=== PATIENT | female | born 1950 | race Caucasian/White ===

== ENCOUNTER 2016-04-17 10:29 | Emergency (ER) | payer OTHER ==
[2016-04-17 10:34] VITALS: BP 101/67; PULSE 79; TEMP 98.3; BMI 32.2
[2016-04-17] MEDS ORDERED: ALBUTEROL SO4 2.5/IPRATROPIUM 0.5 INH SOL 3 ML VIAL.NEB. NEB ONE (11:15)
--- NOTE | 2016-04-17 11:15 | PDOC ---
History of Present Illness - General Chief Complaint: Injury Stated Complaint: FALL, RT FOOT PAIN Time Seen by Provider: 04/17/16 10:49 History Source: Patient Exam Limitations: No Limitations - History of Present Illness Initial Comments: 04/17/16 11:08 66 yr female states she fell last night. Pt with history of DVT on xarelto, Hep C, heroin use, substance abuse, afib, states she fell in the middle of the night hit her back, head and injured her right foot. Pt c/o pain to the foot with swelling. Pt is unable to bear weight on her foot at this time. Pt has chronic COPD with use of inhalers, pt currently wheezing. Pt has chronic falls, walks with a cane. PMD Dr[facility]Vivian Mcfadden ([facility]) 04/17/16 13:40 Past History - Past Medical History Allergies/Adverse Reactions: Allergies Allergy/AdvReac Type Severity Reaction Status Date / Time No Known Allergies Allergy Verified 04/17/16 10:31 Home Medications: Ambulatory Orders Clonazepam [KlonoPIN -] 1 mg PO BID 10/19/14 Methadone [Dolophine -] 70 mg PO DAILY 10/19/14 Tiotropium [place] [Spiriva] 1 inh PO BID 10/19/14 Quetiapine Fumarate [Seroquel -] 300 mg PO HS 02/05/15 Aspirin Coated [Ecotrin -] 81 mg PO DAILY tablet.ec 09/22/15 Docusate Sodium [Colace -] 100 mg PO TID capsule 09/22/15 Albuterol Sulfate Inhaler - [Ventolin HFA Inhaler -] 2 inh PO Q4H PRN 12/08/15 Nicotine Patch [Nicoderm Patch -] 1 patch TD DAILY PRN 12/08/15 Rivaroxaban [Xarelto -] 20 mg PO DAILY 12/10/15 Furosemide [Lasix -] 40 mg PO DAILY #0 12/11/15 Meclizine HCl 25 mg PO Q8H #20 tablet 12/11/15 Metoprolol Succinate [Toprol XL -] 25 mg PO DAILY #30 tab.sr.24h 12/11/15 Anemia: No Asthma: No Cancer: Yes (lung, adrenal) Cardiac Disorders: Yes (afib) CVA: No COPD: Yes CHF: No Dementia: No Diabetes: No GI Disorders: Yes (hep c) Disorders: No HTN: Yes Hypercholesterolemia: No Kidney Stones: No Liver Disease: Yes (hep C) Psychiatric Problems: Yes (anxiety) Suicide Attempt (Hx): No Seizures: Yes Thyroid Disease: Yes (THYROID NODULES) - Surgical History Abdominal Surgery: No Appendectomy: No Cardiac Surgery: No Cholecystectomy: No Lung Surgery: Yes (LEFT UPPER LOBE LOBECTOMY IN 08/2012) Neurologic Surgery: No Orthopedic Surgery: No - Family Disease History Family Disease History: Other: Mother (non contributory) - Reproductive History PID: No - Immunization History Immunization Up to Date: Yes - Psycho/Social/Smoking Cessation Hx Anxiety: No Suicidal Ideation: No Smoking Status: No Smoking History: Current every day smoker Have you smoked in the past 12 months: Yes Number of Cigarettes Smoked Daily: 20 If you are a former smoker, when did you quit?: 03-17-13 Information on smoking cessation initiated: Yes 'Breaking Loose' booklet given: 04/17/16 Hx Alcohol Use: No Drug/Substance Use Hx: No (on methadone) Substance Use Type: None Hx Substance Use Treatment: Yes (methadone clinic) Review of Systems - Review of Systems Able to Perform ROS?: Yes Is the patient limited Bulgarian proficient: No Constitutional: No: Symptoms Reported HEENTM: No: Symptoms Reported Respiratory: No: Symptoms reported Cardiac (ROS): No: Symptoms Reported ABD/GI: No: Symptoms Reported : No: Symptoms Reported Musculoskeletal: Yes: See HPI *Physical Exam - Vital Signs Last Vital Signs Temp Pulse Resp BP Pulse Ox 98.3 F 79 18 101/67 100 04/17/16 10:31 04/17/16 10:31 04/17/16 10:31 04/17/16 10:31 04/17/16 10:31 - Physical Exam General Appearance: Yes: Nourished, Appropriately Dressed, Other (somnolent appears under the influence of drugs ) HEENT: positive: EOMI, NAHID, TMs Normal, Pharynx Normal Neck: negative: Tender Respiratory/Chest: positive: Wheezing Cardiovascular: positive: Regular Rhythm, Regular Rate Gastrointestinal/Abdominal: positive: Normal Bowel Sounds, Soft Musculoskeletal: positive: Normal Inspection Integumentary: positive: Normal Color, Dry, Warm, Bruising (mid thoracic spine with 2cm area of bruising, redness ) ED Treatment Course - RADIOLOGY Radiology Studies Ordered: Category Date Time Status HEAD CT WITHOUT CONTRAST [CT] Stat CT Scan 04/17/16 10:59 Ordered ANKLE & FOOT-RIGHT* [RAD] Stat Radiology 04/17/16 11:03 Ordered FOOT-RIGHT [RAD] Stat Radiology 04/17/16 11:03 Ordered SPINE-CERVICAL [RAD] Stat Radiology 04/17/16 11:03 Ordered SPINE-THORACIC [RAD] Stat Radiology 04/17/16 11:03 Ordered Medical Decision Making - Medical Decision Making 04/17/16 13:14 cc: fall last night hit head on ascencionto , pt states she hit her forehead with no LOC pt states she injured her mid back and her right foot. Pt admits to getting her methadone this am and took a ride to the ER for eval of her foot. pt denies dizzyness, no headache or chest pain no SOB ice applied to right foot 04/17/16 13:41 pt given results of her xrays and cat scan for discharge and to follow with ther PMD Dr.Vivian Mcfadden at [facility] in . Pt has appointment next saturday with her. I have discussed in detail that pt must return to ER for any worsening symptoms. / *DC/Admit/Observation/Transfer Diagnosis at time of Disposition: Injury, foot Qualifiers: Encounter type: initial encounter Laterality: right Qualified Code(s): S99.921A - Unspecified injury of right foot, initial encounter Contusion Qualifiers: Encounter type: initial encounter Contusion area: thoracic wall - Discharge Dispostion Disposition: HOME Condition at time of disposition: Good - Referrals Referrals: STAFF,NOT ON [Primary Care Provider] - Jose Thurston MD [Staff Physician] - - Patient Instructions Additional Instructions: follow with your doctor as planned or sooner if any worsening symptoms return to ER for any severe headache, vomiting or confusion or any other worsening symptoms follow with the orthopedist for follow up apply ice every 2hrs for 20 minutes to your foot for the next 2 days use the cane to ambulate
[2016-04-17] MEDS ORDERED: ALBUTEROL SO4 0.083% IH SOL 2.5 MG/3 ML VIAL.NEB. NEB ONE (11:40)
== END 2016-04-17 13:54 | disposition home or self-care (01) ==
LOC: JERFT 10:29
PROC: 3E0F7GC Introduction of Other Therapeutic Substance into Respiratory Tract, Via Natural or Artificial Opening (ICD-10-PCS; principal; 2016-04-17)
DX: S20.229A Contusion of unspecified back wall of thorax, initial encounter (principal); W06.XXXA Fall from bed, initial encounter; Y93.89 Activity, other specified; Y92.032 Bedroom in apartment as the place of occurrence of the external cause; I48.91 Unspecified atrial fibrillation; Z86.718 Personal history of other venous thrombosis and embolism; Z79.01 Long term (current) use of anticoagulants; F11.10 Opioid abuse, uncomplicated; B18.2 Chronic viral hepatitis C; J44.9 Chronic obstructive pulmonary disease, unspecified; F17.210 Nicotine dependence, cigarettes, uncomplicated
CPT/HCPCS: 70450-TC; 72050-TC; 72070-TC; 73610-TC-RT; 73630-TC-RT; 94640; 99281-25

== ENCOUNTER 2016-07-08 03:23 | Inpatient (IN) | payer OTHER ==
--- NOTE | 2016-07-08 03:52 | PDOC ---
History of Present Illness - General History Source: Patient Exam Limitations: No Limitations - History of Present Illness Initial Comments: 07/08/16 04:50 The patient is a 66-year-old female BIB EMS with a significant past medical history of COPD, Afib, lung and adrenal cancer, hypotension, rheumatoid arthritis, DVT on Xarelto, Hep C, thyroid nodules, peripheral vascular disease, heroin use, and presents to the emergency department with respiratory distress and rapid afib this morning. As per EMS, the patient came in with high BP and diffuse wheezing. The patient reports that she had difficulty breathing and was feeling lightheaded. She reports that she was very sleepy today and only had soup to eat earlier. The patient denies chest pain and headache. The patient denies fever, chills, nausea, vomit, diarrhea and constipation. The patient denies dysuria, frequency , urgency and hematuria. Allergies: NKDA Past Surgical History: Left upper lobe lobectomy 08/2012 Social History: former smoker (quit one week ago) PCP: Dr. Saima Mcfadden <Rubia Thomas - Last Filed: 07/08/16 04:49> <Payton Beck - Last Filed: 07/09/16 04:40> - General Chief Complaint: Respiratory Distress Stated Complaint: DIFFICULTY BREATHING Time Seen by Provider: 07/08/16 03:32 Past History <Rubia Thomas - Last Filed: 07/08/16 04:49> - Past Medical History Anemia: No Asthma: No Cancer: Yes (lung, adrenal) Cardiac Disorders: Yes (afib) CVA: No COPD: Yes CHF: No Dementia: No Diabetes: No GI Disorders: Yes (hep c) Disorders: No HTN: Yes Hypercholesterolemia: No Kidney Stones: No Liver Disease: Yes (hep C) Psychiatric Problems: Yes (anxiety) Suicide Attempt (Hx): No Seizures: Yes Thyroid Disease: Yes (THYROID NODULES) - Surgical History Abdominal Surgery: No Appendectomy: No Cardiac Surgery: No Cholecystectomy: No Lung Surgery: Yes (LEFT UPPER LOBE LOBECTOMY IN 08/2012) Neurologic Surgery: No Orthopedic Surgery: No - Family Disease History Family Disease History: Other: Mother (non contributory) - Reproductive History PID: No - Immunization History Immunization Up to Date: Yes - Psycho/Social/Smoking Cessation Hx Anxiety: No Suicidal Ideation: No Smoking Status: No Smoking History: Current every day smoker Have you smoked in the past 12 months: Yes Number of Cigarettes Smoked Daily: 20 If you are a former smoker, when did you quit?: 03-17-13 'Breaking Loose' booklet given: 04/17/16 Hx Alcohol Use: No Drug/Substance Use Hx: No (on methadone) Substance Use Type: None Hx Substance Use Treatment: Yes (methadone clinic) <BeckPayton - Last Filed: 07/09/16 04:40> - Past Medical History Allergies/Adverse Reactions: Allergies Allergy/AdvReac Type Severity Reaction Status Date / Time No Known Allergies Allergy Verified 07/08/16 03:36 Home Medications: Ambulatory Orders Clonazepam [KlonoPIN -] 1 mg PO BID 10/19/14 Methadone [Dolophine -] 65 mg PO DAILY 10/19/14 Tiotrop[address] [place] [Spiriva] 1 inh PO BID 10/19/14 Quetiapine Fumarate [Seroquel -] 300 mg PO HS 02/05/15 Aspirin Coated [Ecotrin -] 81 mg PO DAILY tablet.ec 09/22/15 Docusate Sodium [Colace -] 100 mg PO TID capsule 09/22/15 Albuterol Sulfate Inhaler - [Ventolin HFA Inhaler -] 2 inh PO Q4H PRN 12/08/15 Nicotine Patch [Nicoderm Patch -] 1 patch TD DAILY PRN 12/08/15 Rivaroxaban [Xarelto -] 20 mg PO DAILY 12/10/15 Fluticasone/Salmeterol [Advair 250-50 Diskus] 1 puff IN BID 07/08/16 Furosemide [Lasix] 20 mg PO DAILY 07/08/16 Gabapentin [Neurontin] 300 mg PO TID 07/08/16 Levetiracetam [Keppra -] 500 mg PO BID 07/08/16 Metoprolol Succinate [Toprol Xl] 50 mg PO DAILY 07/08/16 Quetiapine Fumarate [Seroquel -] 25 mg PO DAILY PRN 07/08/16 Review of Systems - Review of Systems Able to Perform ROS?: Yes Comments:: 07/08/16 04:50 CONSTITUTIONAL: Absent: fever, chills, diaphoresis, generalized weakness, malaise, loss of appetite HEENT: Absent: rhinorrhea, nasal congestion, throat pain, throat swelling, difficulty swallowing, mouth swelling, ear pain, eye pain, visual changes CARDIOVASCULAR: Present: (+) lightheadedness Absent: chest pain, syncope, palpitations, irregular heart rate, peripheral edema RESPIRATORY: Present: (+) shortness of breath Absent: cough, dyspnea with exertion, orthopnea, stridor, hemoptysis GASTROINTESTINAL: Absent: abdominal pain, abdominal distension, nausea, vomiting, diarrhea, constipation, melena, hematochezia GENITOURINARY: Absent: dysuria, frequency, urgency, hesitancy, hematuria, flank pain, genital pain MUSCULOSKELETAL: Absent: myalgia, arthralgia, joint swelling SKIN: Absent: rash, itching, pallor HEMATOLOGIC/IMMUNOLOGIC: Absent: easy bleeding, easy bruising, lymphadenopathy, frequent infections ENDOCRINE: Absent: unexplained weight gain, unexplained weight loss, heat intolerance, cold intolerance NEUROLOGIC: Absent: headache, focal weakness or paresthesias, dizziness, unsteady gait, seizure, mental status changes, bladder or bowel incontinence PSYCHIATRIC: Absent: anxiety, depression, suicidal or homicidal ideation, hallucinations. <Rubia Thomas - Last Filed: 07/08/16 04:49> *Physical Exam - Vital Signs Last Vital Signs Temp Pulse Resp BP Pulse Ox 98.5 F 143 H 16 115/83 97 07/08/16 03:36 07/08/16 03:36 07/08/16 03:36 07/08/16 03:36 07/08/16 03:36 - Physical Exam Comments: 07/08/16 04:50 GENERAL: Well developed, well nourished. Awake and alert. No acute distress. HEENT: Normocephalic, atraumatic. PERRLA, EOMI. No conjunctival pallor. Sclera are non- icteric. Moist mucous membranes. Oropharynx is clear. NECK: Supple. Full ROM. No JVD. Carotid pulses 2+ and symmetric, without bruits. No thyromegaly. No lymphadenopathy. CARDIOVASCULAR: (+) Tachycardic and irregularly irregular. No murmurs, rubs, or gallops. Distal pulses are 2+ and symmetric. PULMONARY: (+) Coarse breath sounds bilaterally and throughout. No wheezing, rales or rhonchi. ABDOMINAL: (+) Obese. Soft. Non-tender. Non-distended. No rebound or guarding. No organomegaly. Normoactive bowel sounds. MUSCULOSKELETAL Normal range of motion at all joints. No bony deformities or tenderness. No CVA tenderness. EXTREMITIES: (+) No pitting edema in bilateral legs, but right leg has thickened skin suggestive of peripheral vascular disease. No cyanosis. No clubbing. No calf tenderness. SKIN: Warm and dry. Normal capillary refill. No rashes. No jaundice. NEUROLOGICAL: Alert, awake, appropriate. Cranial nerves 2-12 intact. No deficits to light touch and temperature in face, upper extremities and lower extremities. No motor deficits in the in face, upper extremities and lower extremities. Normoreflexic in the upper and lower extremities. Normal speech. Toes are down- going bilaterally. Gait is normal without ataxia. PSYCHIATRIC: Cooperative. Good eye contact. Appropriate mood and affect. <Rubia Thomas - Last Filed: 07/08/16 04:49> ED Treatment Course - LABORATORY CBC & Chemistry Diagram: 07/08/16 03:50 07/08/16 03:50 - ADDITIONAL ORDERS Additional order review: Laboratory Results 07/08/16 07/08/16 03:50 03:50 INR 1.27 H PTT (Actin FS) 39.5 H Sodium 139 Potassium 4.5 Chloride 106 Carbon Dioxide 26 Anion Gap 7 L BUN 15 D Creatinine 1.3 H Creat Clearance w eGFR 41.24 Random Glucose 145 H D Calcium 8.0 L Total Bilirubin 0.3 AST 42 H ALT 44 Alkaline Phosphatase 95 Creatine Kinase 439 H Creatine Kinase Index 2.0 CK-MB (CK-2) 8.573 H Troponin I < 0.02 B-Natriuretic Peptide 6862.07 H Total Protein 8.5 H Albumin 3.4 07/08/16 03:50 RBC 4.47 MCV 94.4 MCHC 32.8 RDW 14.3 MPV 9.6 Neutrophils % 81.3 D Lymphocytes % 11.8 D Monocytes % 6.2 Eosinophils % 0.2 D Basophils % 0.5 - Medications Given in the ED: ED Medications Discontinued Medications Generic Name Dose Route Start Last Admin Trade Name Freq PRN Reason Stop Dose Admin Diltiazem HCl 60 mg 07/08/16 04:17 07/08/16 04:25 Cardizem - PO 07/08/16 04:18 60 mg ONCE ONE Administration Diltiazem HCl 10 mg 07/08/16 04:17 07/08/16 04:25 Cardizem Injection - IVPUSH 07/08/16 04:18 10 mg ONCE ONE Administration <Rubia Thomas - Last Filed: 07/08/16 04:49> - LABORATORY CBC & Chemistry Diagram: 07/08/16 09:50 07/08/16 03:50 <Payton Beck - Last Filed: 07/09/16 04:40> Medical Decision Making - Medical Decision Making 07/09/16 04:29 Pt comes with rapid afib and difficulty breathing. EMS states that pt was in distress when they got to her. HR was controlled with diltiazem in the field. Respirations were improved with duoneb in the field that had the effect of incresing her heart rate. On arrival HR is 140s, and pt is still SOB. She was given more diltiazem in the ER, but we were limited by her low BP of 90s systolic. We hydrated her with saline, but we need to consider her BNP is 6000+ . Asthma treated with solumedrol and pt placed on BiPAP for comfort. Pt admitted to the hospitalist. <Payton Beck - Last Filed: 07/09/16 04:40> *DC/Admit/Observation/Transfer - Attestations Scribe Attestion: 07/08/16 04:51 Documentation prepared by Rubia Thomas, acting as manager medical for Payton Beck MD. <Rubia Thomas - Last Filed: 07/08/16 04:49> - Discharge Dispostion Admit: Yes <Payton Beck - Last Filed: 07/09/16 04:40> Diagnosis at time of Disposition: Rapid atrial fibrillation, Respiration disorder
[2016-07-08 03:57] VITALS: BMI 30.1
[2016-07-08 04:05] LABS: BASOPHIL 0.5 % (0-2.0); EOSINOPHIL 0.2 % (0-4.5); MCHC 32.8 g/dl (32.0-36.0); MEAN CELL VOLUME 94.4 fl (80-96); MEAN PLT VOLUME 9.6 fl (7.5-11.1); NEUTROPHILS 81.3 % (42.8-82.8); PLATELET COUNT 218 K/MM3 (134-434); RDW 14.3 % (11.6-15.6); WHITE BLOOD COUNT 14.6 K/mm3 (4.0-10.0)
[2016-07-08] MEDS ORDERED: dilTIAZem HCL 50 MG/10 ML - 10 ML VIAL IVPUSH ONE ×2 (04:17→19:32)
[2016-07-08] MEDS ORDERED: dilTIAZem HCL 60 MG TABLET (FP) PO ONE (04:17)
[2016-07-08 04:18] LABS: INR 1.27 (0.82-1.09)
[2016-07-08] MEDS ORDERED: dilTIAZem HCL 60 MG TABLET (FP) ONE (04:19)
[2016-07-08] MEDS ORDERED: dilTIAZem HCL 125 MG/25 ML - 25 ML VIAL ONE ×2 (04:19→20:05)
[2016-07-08 04:20] LABS: ACTIVATED PTT 39.5 SECONDS (26.9-34.4)
[2016-07-08 04:27] LABS: ALBUMIN 3.4 g/dl (3.4-5.0); ANION GAP 7 (8-16); BILIRUBIN,TOTAL 0.3 mg/dL (0.2-1.0); CO2 26 mmol/L (21-32); COCKROFT - GAULT 53.2185; CREATININE 1.3 mg/dL (0.55-1.02); GLUCOSE,RANDOM 145 mg/dL (74-106); SGOT/AST 42 U/L (15-37); SGPT/ALT 44 U/L (12-78); TOT PROT 8.5 g/dl (6.4-8.2)
[2016-07-08 04:30] LABS: ALK PHOS 95 U/L (45-117); TROPONIN I < 0.02 ng/ml (0.00-0.05)
--- NOTE | 2016-07-08 05:59 | HP ---
Admitting History and Physical - Admission Chief Complaint: sob History of Present Illness: 65 y/o lady with h/o COPD, RA, Lung ca with local reoccurance, benign adrenal mass, a-fib, DVT hypotension, hep. C, thyriod nodules, PVD, HTN who BIB EMS with SOB. Per RN patient was given Neb tx by EMS. She reports feeling SOB last night at dinner. She reports 1 week ago she fell and hurt the left side of her Ribs. She reports having dry cough and left sided chest pain associated with coughing and deep inspirations. She states that she has to guard her left side sometimes because of the pain. She reports associated radiation to her back. She also reports a "popping" sound emanating from her L ribs 1 week ago. She also reports having a fever of ~101 and taking Tylenol. She denies body aches, chills, nausea vomiting, diarrhea. She denies jaw claudication, numbness, heart palps. PMH/PSH: COPD, RA, Lung ca with local reoccurance, benign adrenal mass, a-fib, hypotension, hep. C, thyriod nodules, PVD, HTN , DVT Social: Former smoker. Former heroin use. Drinks alcohol Famhx: Non contributory Ros neg except for HPI Physical Gen- in nad, obese, sleepy hent- at/nc, [place], neck supple, trachea midline, [place], Resp- Diffuse ext wheeze, +cough, no rales, +ronchi, speaking in full sentences Cards- irreg, tachy, no JVD, trace BLE edema, S1S2 heard Gi- obese abdomen, no guarding, no rigidity, BS +, no distention Skin- abrasions to R arm Psych- cooperative, no agitation, sleepy Neuro- cn 2-12 grossly intact, sleepy, no facial droop, no seizures, [place] Prob list SOB Afib w RVR HTN COPD left sided rib pain heroin abuse CP imaging: Cxr appears overloaded on by my eye ekg afib w RVR A/P-65 y/o lady with h/o COPD, RA, Lung ca with local reoccurance, benign adrenal mass, a-fib, DVT, hypotension, hep. C, thyriod nodules, PVD, HTN who BIB EMS with SOB. 1. SOB ?PNA ?COPD, ?CHF CXR appears to have congestion on my view ABG- PH 7.3, CO2 47, O2 70 BNP 6000s Placed on BIPAP Start CTX, Duonebs, supp O2, Steroids Continue home Lasix FU echo FU flu swab, Urine legionella 2. AFIB w RVR Given 70mg IV Diltiazem in ER 2G of Mag ordered Continue AC Rate control Cardiac tele Trend Trop 3. HTN Continue home meds 4. Left sided Rib pain S/P fall FU rib x ray Pain control 5. hx of heroin abuse On Methadone Need to verify with Pharmacy dose 6. Atypical CP s/p fall, likely musk 1st trop negative CXR appears congested Cycle trops FU echo 7. PVD Continue ASA 8. Leukocytosis ?infection v reactive No shift Trend CBC DVT prophy SCD, OOB, Systemic AC FEN Low salt Dispo- requires >2mn stay for CHF exc, afib exc, COPD exc History Source: Patient Limitations to Obtaining History: No Limitations - Past Medical History Pulmonary: Yes: COPD Infectious Disease: Yes: Other (recent hx of admission to the hosp for pneumonia ) Endocrine: Yes: Other (benign adrenal nodule s/p bx) - Smoking History Smoking history: Current every day smoker Have you smoked in the past 12 months: Yes Aproximately how many cigarettes per day: 20 If you are a former smoker, when did you quit?: 03-17-13 - Alcohol/Substance Use Hx Alcohol Use: No History of Substance Use: reports: None - Social History History of Recent Travel: No Home Medications - Allergies Allergies/Adverse Reactions: Allergies Allergy/AdvReac Type Severity Reaction Status Date / Time No Known Allergies Allergy Verified 07/08/16 03:36 - Home Medications Home Medications: Ambulatory Orders Clonazepam [KlonoPIN -] 1 mg PO BID 10/19/14 Methadone [Dolophine -] 65 mg PO DAILY 10/19/14 Tiotropium [place] [Spiriva] 1 inh PO BID 10/19/14 Quetiapine Fumarate [Seroquel -] 300 mg PO HS 02/05/15 Aspirin Coated [Ecotrin -] 81 mg PO DAILY tablet.ec 09/22/15 Docusate Sodium [Colace -] 100 mg PO TID capsule 09/22/15 Albuterol Sulfate Inhaler - [Ventolin HFA Inhaler -] 2 inh PO Q4H PRN 12/08/15 Nicotine Patch [Nicoderm Patch -] 1 patch TD DAILY PRN 12/08/15 Rivaroxaban [Xarelto -] 20 mg PO DAILY 12/10/15 Fluticasone/Salmeterol [Advair 250-50 Diskus] 1 puff IN BID 07/08/16 Furosemide [Lasix] 20 mg PO DAILY 07/08/16 Gabapentin [Neurontin] 300 mg PO TID 07/08/16 Levetiracetam [Keppra -] 500 mg PO BID 07/08/16 Metoprolol Succinate [Toprol Xl] 50 mg PO DAILY 07/08/16 Quetiapine Fumarate [Seroquel -] 25 mg PO DAILY PRN 07/08/16 Family Disease History - Family Disease History Family Disease History: Other: Father (ETOH DEPENDENT), Mother (HAD CVA AND ) Physical Examination Vital Signs: Vital Signs Temperature 98.5 F 07/08/16 03:36 Pulse Rate 118 H 07/08/16 04:15 Respiratory Rate 16 07/08/16 03:36 Blood Pressure 115/83 07/08/16 03:36 O2 Sat by Pulse Oximetry (%) 93 L 07/08/16 04:15 Labs: CBC, BMP 07/08/16 03:50 07/08/16 03:50 Visit type - Emergency Visit Emergency Visit: Yes ED Registration Date: 07/08/16 Care time: The patient presented to the Emergency Department on the above date and was hospitalized for further evaluation of their emergent condition. - New Patient This patient is new to me today: Yes Date on this admission: 07/08/16 - Critical Care Critical Care patient: No
[2016-07-08] MEDS ORDERED: ONDANSETRON 4 MG/2 ML VIAL IVPB PRN (06:03)
[2016-07-08] MEDS ORDERED: MAGNESIUM SULF 50% (8.12 MEQ/2 ML-1 GM VIAL) IVPB ONE (06:08)
[2016-07-08] MEDS ORDERED: methylPREDNISolone NA SUCC 125 MG/2 ML VIAL IVPB ONE (06:41)
[2016-07-08 06:43] LABS: ARTERIAL BLD GAS O2 SATURATION 93.2 % (90-98.9); ARTERIAL BLOOD GAS BASE EXCESS -1.6 meq/l (-2-2); ARTERIAL BLOOD GAS HCO3 24.1 meq/L (22-26); ARTERIAL BLOOD GAS PO2 70.4 mmHg (80-100)
[2016-07-08] MEDS ORDERED: CEFTRIAXONE 1 GM in DEXTROSE 5%-WATER - 50 ML IVPB ONE (06:43)
[2016-07-08 06:44] LABS: ALLENS TEST POSITIVE; ART PUNCT SITE RIGHT RADIAL; LPM/O2% 2LPM; METHEMOGLOBIN 0.4 % (0.4-1.5); PT. ON O2? YES; TYPE OF O2 N/C
[2016-07-08 06:45] LABS: ARTERIAL BLOOD GAS pH 7.33 (7.35-7.45)
[2016-07-08] MEDS ORDERED: CEFTRIAXONE 50 ML ONE (07:12)
[2016-07-08] MEDS ORDERED: FUROSEMIDE 40 MG/4 ML INJECTABLE VIAL IVPUSH ONE (09:01)
[2016-07-08] MEDS ORDERED: clonazePAM 0.5 MG TABLET ONE ×2 (09:22→22:33)
[2016-07-08] MEDS ORDERED: ASPIRIN COATED 81 MG TABLET.EC ONE (09:23)
--- NOTE | 2016-07-08 09:29 | PN ---
Progress Note (short form) - Note Progress Note: Subjective: no fever or chills, here but reported fever 101 at home. has increased SOB, and cough with yellow sputum production x 1 week. noted increased swelling in her LE R > L . had fractured her R big toe but better now Objective: Vital Signs: Last Vital Signs Temp Pulse Resp BP Pulse Ox 98.5 F 96 H 22 106/88 97 07/08/16 03:36 07/08/16 08:40 07/08/16 06:33 07/08/16 06:33 07/08/16 08:40 I&O: Intake & Output 07/05/16 07/06/16 07/07/16 07/08/16 23:59 23:59 23:59 23:59 Weight 170 lb Physical Exam: NAD , awake ,alert and oriented x 3. BIPAP mask on . MMM. Symmetric face. CV: irreg irreg , slightly tachy in 90s-110s . mild bulge in R neck vessels Lungs: rales at bases R > L , and generalized wheezing. Abd : soft, decreased BS , NT, EXt: 1+ pitting edema R>L . Labs: Laboratory Results - last 24 hr 07/08/16 07/08/16 07/08/16 03:50 03:50 03:50 WBC 14.6 H D RBC 4.47 Hgb 13.9 Hct 42.2 MCV 94.4 MCHC 32.8 RDW 14.3 Plt Count 218 MPV 9.6 Neutrophils % 81.3 D Lymphocytes % 11.8 D Monocytes % 6.2 Eosinophils % 0.2 D Basophils % 0.5 INR 1.27 H PTT (Actin FS) 39.5 H Puncture Site ABG pH ABG pCO2 at Pt Temp ABG pO2 at Pt Temp ABG HCO3 ABG O2 Sat (Measured) ABG O2 Content ABG Base Excess Samir Test Carboxyhemoglobin Methemoglobin O2 Delivery Device Oxygen Flow Rate Sodium 139 Potassium 4.5 Chloride 106 Carbon Dioxide 26 Anion Gap 7 L BUN 15 D Creatinine 1.3 H Creat Clearance w eGFR 41.24 Random Glucose 145 H D Calcium 8.0 L Total Bilirubin 0.3 AST 42 H ALT 44 Alkaline Phosphatase 95 Creatine Kinase 439 H Creatine Kinase Index 2.0 CK-MB (CK-2) 8.573 H Troponin I < 0.02 B-Natriuretic Peptide 6862.07 H Total Protein 8.5 H Albumin 3.4 07/08/16 06:32 WBC RBC Hgb Hct MCV MCHC RDW Plt Count MPV Neutrophils % Lymphocytes % Monocytes % Eosinophils % Basophils % INR PTT (Actin FS) Puncture Site Right radial ABG pH 7.33 L ABG pCO2 at Pt Temp 47.0 H ABG pO2 at Pt Temp 70.4 L ABG HCO3 24.1 ABG O2 Sat (Measured) 93.2 ABG O2 Content 17.9 ABG Base Excess -1.6 Samir Test Positive Carboxyhemoglobin 2.2 H Methemoglobin 0.4 O2 Delivery Device N/c Oxygen Flow Rate 2lpm Sodium Potassium Chloride Carbon Dioxide Anion Gap BUN Creatinine Creat Clearance w eGFR Random Glucose Calcium Total Bilirubin AST ALT Alkaline Phosphatase Creatine Kinase Creatine Kinase Index CK-MB (CK-2) Troponin I B-Natriuretic Peptide Total Protein Albumin Current Medications Generic Name Dose Route Start Last Admin Trade Name Freq PRN Reason Stop Dose Admin Acetaminophen 650 mg 07/08/16 06:03 Tylenol - PO Q6H PRN FEVER OR PAIN Albuterol/Ipratropium 1 amp 07/08/16 06:07 Duoneb - NEB Q6H PRN SHORTNESS OF BREATH Albuterol/Ipratropium 1 amp 07/08/16 12:00 Duoneb - NEB QIDR LORRIE Aspirin 81 mg 07/08/16 10:00 Ecotrin - PO DAILY LORRIE Clonazepam 1 mg 07/08/16 10:00 Klonopin - PO BID LORRIE Docusate Sodium 100 mg 07/08/16 14:00 Colace - PO TID LORRIE Furosemide 40 mg 07/08/16 10:00 Lasix Injection - IVPUSH DAILY LORRIE Ceftriaxone Sodium 50 mls @ 100 mls/hr 07/09/16 10:00 Rocephin 1gm Ivpb (Pre-Docked) IVPB DAILY LORRIE Methadone HCl 65 mg 07/08/16 09:30 Dolophine - PO DAILY@0600 LORRIE Methylprednisolone Sodium Succinate 40 mg 07/08/16 10:00 Solu-Medrol - IVPB BID LORRIE Metoprolol Succinate 50 mg 07/08/16 10:00 Toprol Xl - PO DAILY LORRIE Nicotine 21 mg 07/08/16 10:00 Nicoderm Patch - TD DAILY PRN NICOTINE REPLACEMENT RX Ondansetron HCl 4 mg 07/08/16 06:03 Zofran Injection IVPB Q4H PRN NAUSEA AND/OR VOMITING Quetiapine Fumarate 300 mg 07/08/16 22:00 Seroquel - PO HS LORRIE Rivaroxaban 20 mg 07/08/16 22:00 Xarelto - PO HS LORRIE Fluticasone/Salmeterol 1 puff 07/08/16 10:00 Advair 100mcg/50mcg - IH BID LORRIE Imaging: cxray reviewed, congestive changes. 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 C, thyriod nodules, who presented with worsening SOB x 1 week, wheezing , fever and increased sputum production. She was found to have acute COPD exa, with Afib in RVR. 1- Acute hypoxic resp failure , likely due to COPD exacerbation given the generalized wheezing and increased sputum production. there is no clear infiltrate on cxray , but pt had fever and increased yellow sputum. ? viral vs bacterial bronchitis ALso , pt appear to be in acute heart failure , ( LE edema , pulm edema , and distended neck veins, and elevated BNP from base line ). - steroid IV . - Duo-Nebs QID and PRN - try to take BIPAP off and try NC - give IV lasix ( extra 20 today ) , then 40 daily. probably rapid A fib is what placed her in D CHF - echo in 12/17 with nl EF , and pulm HTN - check flu swab . - repeat cxray in am - give ABx due to increased purulent sputum - monitor WBC - add advair . - dc spiriva as on Duo-Nebs 2- A fib , now in RVR. due to resp distress. - meds confirmed with her pharmacy, cont toprol 50 daiy - monitor BP and HR. rate improved - cont xarelto . She is on ASA as well, has no stents. will d/w her PCP ( has no director drug safety ) 3- h/o heroin abuse , dose of methadone confirmed - cont methadone 4- h/o anxiety : cont seroquel . 300 HS and 25 q AM PRN 5- DVT px : on xarelto dispo : to Tele Called her pharmacy and confirmed /reconciled her meds in EMR. Visit type - Emergency Visit Emergency Visit: Yes ED Registration Date: 07/08/16 Care time: The patient presented to the Emergency Department on the above date and was hospitalized for further evaluation of their emergent condition. - New Patient This patient is new to me today: Yes Date on this admission: 07/08/16 - Critical Care Critical Care patient: No
[2016-07-08] MEDS: FUROSEMIDE 40 MG/4 ML INJECTABLE VIAL IVPUSH SCH (09:30)
[2016-07-08] MEDS: clonazePAM 0.5 MG TABLET PO SCH ×2 (09:30→22:35)
[2016-07-08] MEDS: ASPIRIN COATED 81 MG TABLET.EC PO SCH (09:30)
[2016-07-08] MEDS ORDERED: TIOTROPIUM BROMIDE 18 MCG/INH (DEVICE W/ 5 CAPSULES) IH SCH (10:00)
[2016-07-08] MEDS ORDERED: METOPROLOL SUCCINATE 25 MG TAB.SR.24H (FP) PO SCH (10:00)
[2016-07-08] MEDS ORDERED: FUROSEMIDE 40 MG TABLET (FP) PO SCH (10:00)
[2016-07-08] MEDS ORDERED: METOPROLOL SUCCINATE 50 MG TAB.SR.24H (FP) ONE (10:17)
[2016-07-08] MEDS ORDERED: levETIRAcetam 500 MG TABLET (FP) PO ONE (10:18)
[2016-07-08] MEDS ORDERED: methylPREDNISolone NA SUCC 40 MG/1 ML VIAL ONE ×2 (10:18→22:35)
[2016-07-08] MEDS: levETIRAcetam 500 MG TABLET (FP) PO SCH ×2 (10:29→22:29)
[2016-07-08] MEDS: METHADONE HCL 10 MG TABLET PO SCH (10:29)
[2016-07-08] MEDS: methylPREDNISolone NA SUCC 40 MG/1 ML VIAL IVPB SCH ×2 (10:29→22:35)
[2016-07-08] MEDS: METOPROLOL SUCCINATE 25 MG TAB.SR.24H (FP) PO SCH (10:30)
[2016-07-08 10:43] LABS: BASOPHIL 0.1 % (0-2.0); MCH 31.4 pg (25.7-33.7); MEAN CELL VOLUME 95.2 fl (80-96); MEAN PLT VOLUME 9.5 fl (7.5-11.1); NEUTROPHILS 93.5 % (42.8-82.8); PLATELET COUNT 182 K/MM3 (134-434); RDW 14.3 % (11.6-15.6)
[2016-07-08] MEDS ORDERED: ALBUTEROL SO4 2.5/IPRATROPIUM 0.5 INH SOL 3 ML VIAL.NEB. NEB ONE ×2 (12:14→18:14)
[2016-07-08] MEDS: ALBUTEROL SO4 2.5/IPRATROPIUM 0.5 INH SOL 3 ML VIAL.NEB. NEB SCH ×2 (12:20→18:20)
--- NOTE | 2016-07-08 14:09 | CON.PULM ---
Consult Consult Specialty:: PULMONARY Referred by:: BEATA Reason for Consultation:: SOB/CP - History of Present Illness Chief Complaint: SOB/CP History of Present Illness: The patient is a 66-year-old female BIB EMS with a significant past medical history of COPD, Afib, lung cancer resected August [address] [facility], no h/o of RT or chemo since, had an adrenal mass biopsied was an adenoma. She also has a h /o rheumatoid arthritis, AF,DVT/PE on Xarelto, Hep C never treated, thyroid nodules, Buergers disaese, heroin use now on methadone, COPD active smoker,HTN, previous bout of PNA, old right sided rib fractures and presents to the emergency department with respiratory distress and rapid afib this morning. As per EMS, the patient came in with high BP and diffuse wheezing. The patient reports that she had difficulty breathing and was feeling lightheaded. She reports that she was very sleepy today and only had soup to eat earlier. She also states that she dory something "pop" on the left side of her chest. 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 No: O2 Dependent, Previously Intubated Gastrointestinal: Yes: Other (HEP C) Hepatobiliary: Yes: Hepatitis C Renal/: No: Renal Failure Reproductive: Yes: Postmenopausal ...: No Heme/Onc: No: Anemia Infectious Disease: Yes: Other (recent hx of admission to the hosp for pneumonia ) Psych: Yes: Addictions (WAS ON 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), Anxiety Musculoskeletal: Yes: Chronic low back pain Rheumatology: No: Fibromyalgia ENT: No: Allergic Rhinitis Endocrine: Yes: Other (benign adrenal nodule s/p bx). No: Diabetes Mellitus - Past Surgical History Additional Surgical History: RESECTION OF LEFT UPPER LOBE - Alcohol/Substance Use Hx Alcohol Use: No History of Substance Use: reports: Heroin - Smoking History Smoking history: Current every day smoker Have you smoked in the past 12 months: Yes Aproximately how many cigarettes per day: 20 If you are a former smoker, when did you quit?: 03-17-13 - Social History Usual Living Arrangement: Alone (considered w/a terminally ill condition which enables her get the single room she is currently in.) Place of : [place] History of Recent Travel: No Home Medications - Allergies Allergies/Adverse Reactions: Allergies Allergy/AdvReac Type Severity Reaction Status Date / Time No Known Allergies Allergy Verified 07/08/16 03:36 - Home Medications Home Medications: Ambulatory Orders Clonazepam [KlonoPIN -] 1 mg PO BID 10/19/14 Methadone [Dolophine -] 65 mg PO DAILY 10/19/14 Tiotropium [place] [Spiriva] 1 inh PO BID 10/19/14 Quetiapine Fumarate [Seroquel -] 300 mg PO HS 02/05/15 Aspirin Coated [Ecotrin -] 81 mg PO DAILY tablet.ec 09/22/15 Docusate Sodium [Colace -] 100 mg PO TID capsule 09/22/15 Albuterol Sulfate Inhaler - [Ventolin HFA Inhaler -] 2 inh PO Q4H PRN 12/08/15 Nicotine Patch [Nicoderm Patch -] 1 patch TD DAILY PRN 12/08/15 Rivaroxaban [Xarelto -] 20 mg PO DAILY 12/10/15 Fluticasone/Salmeterol [Advair 250-50 Diskus] 1 puff IN BID 07/08/16 Furosemide [Lasix] 20 mg PO DAILY 07/08/16 Gabapentin [Neurontin] 300 mg PO TID 07/08/16 Levetiracetam [Keppra -] 500 mg PO BID 07/08/16 Metoprolol Succinate [Toprol Xl] 50 mg PO DAILY 07/08/16 Quetiapine Fumarate [Seroquel -] 25 mg PO DAILY PRN 07/08/16 Family Disease History - Family Disease History Family Disease History: Other: Father (ETOH DEPENDENT), Mother (HAD CVA AND ) Review of Systems Unable to obtain ROS, reason: POOR INFORMANT - Review of Systems Constitutional: reports: Lethargy. denies: Fever Cardiovascular: reports: Chest Pain, Palpitations Respiratory: reports: SOB, SOB on Exertion. denies: Hemoptysis, Wheezing Physical Exam Vital Sings: Vital Signs Temperature 98.5 F 07/08/16 03:36 Pulse Rate 113 H 07/08/16 10:59 Respiratory Rate 20 07/08/16 10:20 Blood Pressure 115/76 07/08/16 10:20 O2 Sat by Pulse Oximetry (%) 98 07/08/16 10:59 Constitutional: Yes: Anxious Eyes: Yes: EOM Intact HENT: Yes: Normocephalic Neck: Yes: Trachea Midline Cardiovascular: Yes: Pulse Irregular, S1, S2 Respiratory: Yes: Diminished (DIFFUSE BREATH SOUNDS) ...Clubbing: No Gastrointestinal: Yes: Soft Edema: LLE: 1+, RLE: 1+ Neurological: Yes: Alert Labs: CBC, BMP 07/08/16 09:50 ABG Results ABG pH 7.33 (7.35-7.45) L 07/08/16 06:32 ABG pCO2 at Pt Temp 47.0 mmHg (35-45) H 07/08/16 06:32 ABG pO2 at Pt Temp 70.4 mmHg (80-100) L 07/08/16 06:32 ABG HCO3 24.1 meq/L (22-26) 07/08/16 06:32 ABG O2 Sat (Measured) 93.2 % (90-98.9) 07/08/16 06:32 ABG O2 Content 17.9 % vol (15-22) 07/08/16 06:32 ABG Base Excess -1.6 meq/l (-2-2) 07/08/16 06:32 REST REVIEWED Imaging - Results Chest X-ray: Image Reviewed Problem List - Problems (1) Rapid atrial fibrillation Code(s): I48.91 - UNSPECIFIED ATRIAL FIBRILLATION (2) Chest pain Code(s): R07.9 - CHEST PAIN, UNSPECIFIED Qualifiers: Chest pain type: other chest pain Qualified Code(s): R07.89 - Other chest pain; R07.8 - Other chest pain (3) COPD (chronic obstructive pulmonary disease) Code(s): J44.9 - CHRONIC OBSTRUCTIVE PULMONARY DISEASE, UNSPECIFIED (4) H/O: lung cancer Code(s): Z85.118 - PERSONAL HISTORY OF MALIGNANT NEOPLASM OF BRONCHUS AND LUNG (5) Hypertension Code(s): I10 - ESSENTIAL (PRIMARY) HYPERTENSION (6) Opiate use Code(s): F11.90 - OPIOID USE, UNSPECIFIED, UNCOMPLICATED (7) Thyroid nodule Code(s): E04.1 - NONTOXIC SINGLE THYROID NODULE (8) COPD (chronic obstructive pulmonary disease) with emphysema Code(s): J43.9 - EMPHYSEMA, UNSPECIFIED Assessment/Plan RATE CONTROL/CONTINUE A/C CALL [facility] TO OBTAIN DETAILS SURROUNDING LUNG RESECTION O2 SUPPLEMENTATION/BRONCHODILATORS NEEDED/ ANALGESIA FOR ACUTE LEFT RIB FX'S CT CHEST/CEA LEVEL SMOKING CESSATION/TAPER STEROIDS NASAL SWAB FOR INFLU IS NEGATIVE ANTIBIOTICS PER PRIMARY TEAM WILL FOLLOW, THANK YOU VERY MUCH. SILVIA HENRY MD
[2016-07-08] MEDS: FLUTICASONE/SALMETEROL 100 MCG/50 MCG DISKUS IH SCH ×2 (14:10→23:20)
[2016-07-08] MEDS ORDERED: methylPREDNISolone NA SUCC 40 MG/1 ML VIAL IVPB SCH (15:00)
[2016-07-08] MEDS: GABAPENTIN 300 MG CAPSULE (FP) PO SCH ×2 (15:45→22:30)
[2016-07-08] MEDS: DOCUSATE SODIUM 100 MG CAPSULE (FP) PO SCH ×2 (15:45→22:29)
[2016-07-08] MEDS ORDERED: dilTIAZem HCL 30 MG TABLET (FP) PO ONE (17:22)
[2016-07-08] MEDS ORDERED: dilTIAZem HCL 30 MG TABLET (FP) ONE (18:14)
[2016-07-08 20:27] LABS: URINE APPEARANCE CLEAR; URINE BILIRUBIN NEGATIVE (NEGATIVE); URINE COLOR LTYELLOW; URINE GLUCOSE (UA) NEGATIVE (NEGATIVE); URINE KETONE NEGATIVE (NEGATIVE); URINE LEUK ESTERASE NEGATIVE (NEGATIVE); URINE NITRITE NEGATIVE (NEGATIVE); URINE PROTEIN NEGATIVE (NEGATIVE); URINE UROBILINOGEN NEGATIVE E.U./dl (0.2-1.0)
[2016-07-08 20:37] LABS: URINE BLOOD 2+ (NEGATIVE)
[2016-07-08 20:41] LABS: URINE MARIJUANA THC POSITIVE ng/ml (CUTOFF=50)
[2016-07-08 21:02] LABS: URINE HYALINE CAST 1 /lpf; URINE MUCUS RARE; URINE RBC 1 /hpf (0-3); URINE WBC <1 /hpf (3-5)
[2016-07-08] MEDS: RIVAROXABAN 20 MG TABLET PO SCH (23:20)
[2016-07-08] MEDS: QUEtiapine FUMARATE 50 MG TABLET PO SCH (23:20)
[2016-07-08] MEDS: NICOTINE 21 MG/24 HOURS TOPICAL PATCH TD PRN (23:37)
[2016-07-08] MEDS: ACETAMINOPHEN 325 MG TABLET (FP) PO PRN (23:54)
[2016-07-09] MEDS: ALBUTEROL SO4 2.5/IPRATROPIUM 0.5 INH SOL 3 ML VIAL.NEB. NEB SCH ×4 (00:11→18:12)
[2016-07-09] MEDS: dilTIAZem HCL 50 MG/10 ML - 10 ML VIAL IVPUSH PRN ×2 (00:13→08:22)
[2016-07-09] MEDS: GABAPENTIN 300 MG CAPSULE (FP) PO SCH ×4 (06:01→21:16)
[2016-07-09] MEDS: DOCUSATE SODIUM 100 MG CAPSULE (FP) PO SCH ×3 (06:02→21:16)
[2016-07-09 07:42] LABS: BASOPHIL 0.9 % (0-2.0); MCH 31.8 pg (25.7-33.7); MCHC 33.5 g/dl (32.0-36.0); MEAN PLT VOLUME 9.6 fl (7.5-11.1); NEUTROPHILS 91.2 % (42.8-82.8); PLATELET COUNT 175 K/MM3 (134-434); RDW 13.8 % (11.6-15.6); WHITE BLOOD COUNT 14.9 K/mm3 (4.0-10.0)
[2016-07-09] MEDS ORDERED: METHADONE HCL 10 MG TABLET ONE (08:08)
[2016-07-09] MEDS ORDERED: METHADONE HCL 40 MG DISPERSABLE TABLET ONE (08:09)
[2016-07-09] MEDS ORDERED: METHADONE HCL 5 MG TABLET ONE (08:09)
[2016-07-09] MEDS: ASPIRIN COATED 81 MG TABLET.EC PO SCH ×2 (08:17→09:27)
[2016-07-09] MEDS: levETIRAcetam 500 MG TABLET (FP) PO SCH ×3 (08:17→21:16)
[2016-07-09] MEDS: METHADONE 40 MG, METHADONE 20 MG, METHADONE 5 MG PO SCH (08:17)
[2016-07-09] MEDS: clonazePAM 0.5 MG TABLET PO SCH ×3 (08:18→21:16)
[2016-07-09] MEDS: METOPROLOL SUCCINATE 25 MG TAB.SR.24H (FP) PO SCH ×2 (08:18→09:27)
[2016-07-09] MEDS: FUROSEMIDE 40 MG/4 ML INJECTABLE VIAL IVPUSH SCH ×2 (08:25→09:27)
[2016-07-09] MEDS: methylPREDNISolone NA SUCC 40 MG/1 ML VIAL IVPB SCH ×3 (08:25→21:15)
[2016-07-09] MEDS: FLUTICASONE/SALMETEROL 100 MCG/50 MCG DISKUS IH SCH ×2 (08:30→09:27)
[2016-07-09] MEDS: NICOTINE 21 MG/24 HOURS TOPICAL PATCH TD PRN (08:31)
[2016-07-09] MEDS: CEFTRIAXONE 50 ML IVPB SCH ×2 (08:31→09:27)
[2016-07-09] MEDS: METHADONE HCL 10 MG TABLET PO SCH (08:32)
--- NOTE | 2016-07-09 08:37 | CON.CARD ---
Consult Consult Specialty:: cardio Referred by:: hospitalist Reason for Consultation:: afib, sob - History of Present Illness Chief Complaint: sob History of Present Illness: 66-year-old female presented to the emergency department with respiratory distress and rapid afib. developed sob on DOA, called 911. As per EMS, the patient noted to have high BP and diffuse wheezing. pt states she's been having incr'd sob at home for 1-2 weeks; not her usual baseline; also chronic wheezing all the time but this is usual for her. she also noted leg swelling during this time, which was new for her. SHE DENIES PALPITATIONS DURING THIS TIME. was coughing a lot with phlegm. developed severe pain under L breast, starting near axillary line, radiating up to L of sternum--worse when coughing. 5/6 at night after out with friend's (no etoh intake) she was very sob when got into her home; called 911. HR slowed with diltiazem in ER, plus lasix 20mg IVP x1 and solu-medrol administered on telemetry floor this am her HR was 130-140 after po toprol and diltiazem 5mg IVP; given diltiazem 20mg IVP which slowed her to 110s-120s but sbp declined to 90s PMH: COPD, + cigs (active) Afib lung cancer resected August 2012 at [facility], no h/o of RT or chemo adrenal mass biopsied: +adenoma. 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 Cardio/Vascular: Yes: AFIB, HTN, Hyperlipdemia Pulmonary: Yes: COPD Gastrointestinal: Yes: Other (HEP C) Hepatobiliary: Yes: Hepatitis C Renal/: No: Renal Failure ...: No Infectious Disease: Yes: Other (recent hx of admission to the hosp for pneumonia ) Psych: Yes: Addictions (WAS ON 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), Anxiety Musculoskeletal: Yes: Chronic low back pain Rheumatology: No: Fibromyalgia ENT: No: Allergic Rhinitis Endocrine: Yes: Other (benign adrenal nodule s/p bx) - Past Surgical History Additional Surgical History: RESECTION OF LEFT UPPER LOBE - Alcohol/Substance Use Hx Alcohol Use: No History of Substance Use: reports: None - Smoking History Smoking history: Current every day smoker Have you smoked in the past 12 months: Yes Aproximately how many cigarettes per day: 20 If you are a former smoker, when did you quit?: 03-17-13 - Social History Usual Living Arrangement: Alone (considered w/a terminally ill condition which enables her get the single room she is currently in.) History of Recent Travel: No Home Medications - Allergies Allergies/Adverse Reactions: Allergies Allergy/AdvReac Type Severity Reaction Status Date / Time No Known Allergies Allergy Verified 07/08/16 03:36 - Home Medications Home Medications: Ambulatory Orders Clonazepam [KlonoPIN -] 1 mg PO BID 10/19/14 Methadone [Dolophine -] 65 mg PO DAILY 10/19/14 Tiotropium [place] [Spiriva] 1 inh PO BID 10/19/14 Quetiapine Fumarate [Seroquel -] 300 mg PO HS 02/05/15 Aspirin Coated [Ecotrin -] 81 mg PO DAILY tablet.ec 09/22/15 Docusate Sodium [Colace -] 100 mg PO TID capsule 09/22/15 Albuterol Sulfate Inhaler - [Ventolin HFA Inhaler -] 2 inh PO Q4H PRN 12/08/15 Nicotine Patch [Nicoderm Patch -] 1 patch TD DAILY PRN 12/08/15 Rivaroxaban [Xarelto -] 20 mg PO DAILY 12/10/15 Fluticasone/Salmeterol [Advair 250-50 Diskus] 1 puff IN BID 07/08/16 Furosemide [Lasix] 20 mg PO DAILY 07/08/16 Gabapentin [Neurontin] 300 mg PO TID 07/08/16 Levetiracetam [Keppra -] 500 mg PO BID 07/08/16 Metoprolol Succinate [Toprol Xl] 50 mg PO DAILY 07/08/16 Quetiapine Fumarate [Seroquel -] 25 mg PO DAILY PRN 07/08/16 Family Disease History - Family Disease History Family Disease History: Other: Father (ETOH DEPENDENT), Mother (HAD CVA AND ) Review of Systems - Review of Systems Constitutional: denies: Chills, Fever Eyes: denies: Eye Pain HENT: denies: Nasal Congestion Neck: denies: Stiffness Cardiovascular: denies: Palpitations Respiratory: denies: Orthopnea, PND Gastrointestinal: denies: Diarrhea, Rectal Bleeding Genitourinary: denies: Burning, Hematuria Musculoskeletal: denies: Muscle Pain Integumentary: denies: Rash Neurological: denies: Numbness, Seizure, Syncope Endocrine: denies: Excessive Sweating Hematology/Lymphatic: denies: Excessive Bleeding Vital Signs: Vital Signs Temperature 98.1 F 07/09/16 06:00 Pulse Rate 131 H 07/09/16 06:00 Respiratory Rate 16 07/09/16 06:00 Blood Pressure 103/67 07/09/16 06:00 O2 Sat by Pulse Oximetry (%) 98 07/08/16 21:44 Constitutional: Yes: No Distress, Obese Eyes: No: Sclera Icterus HENT: No: Nasal Congestion Neck: No: Decreased ROM Respiratory: Yes: Rhonchi, Wheezes (diffuse). No: Accessory Muscle Use, Rales Gastrointestinal: Yes: Normal Bowel Sounds. No: Distention, Hepatomegaly, Palpable Mass, Tenderness Cardiovascular: Yes: Pulse Irregular JVD: No Carotid Bruit: No PMI: Non-Displaced Heart Sounds: Yes: S1, S2. No: Gallop Murmur: No: Systolic Murmur, Diastolic Murmur Musculoskeletal: Yes: Other (No kyphosis) Extremities: No: Cold, Cyanosis Edema: No Peripheral Pulses: 2+ Left Carotid, 2+ Right Carotid, 2+ Left Doralis Pedis, 2+ Right Dorsalis Pedis Integumentary: No: Jaundice Neurological: Yes: Alert, Oriented (x3) Psychiatric: No: Agitated - Other Data Labs, Other Data: CBC, BMP 07/09/16 05:35 INR, PTT INR 1.27 (0.82-1.09) H 07/08/16 03:50 Troponin, BNP 07/08/16 07/08/16 09:50 18:31 Troponin I < 0.02 < 0.02 Troponin, BNP 07/08/16 07/08/16 09:50 18:31 Troponin I < 0.02 < 0.02 Laboratory Tests 02/04/15 07/08/16 07/08/16 11:30 03:50 06:32 WBC Hgb Plt Count ABG pH 7.33 L ABG pCO2 at Pt Temp 47.0 H ABG pO2 at Pt Temp 70.4 L Oxygen Flow Rate 2lpm Sodium 139 Potassium 4.5 Carbon Dioxide 26 BUN 15 D Creatinine 1.3 H Creat Clearance w eGFR 41.24 AST 42 H ALT 44 Troponin I < 0.02 B-Natriuretic Peptide 923.54 H 6862.07 H TSH 07/08/16 07/08/16 07/09/16 09:50 18:31 05:35 WBC 14.9 H D Hgb 12.9 Plt Count 175 ABG pH ABG pCO2 at Pt Temp ABG pO2 at Pt Temp Oxygen Flow Rate Sodium Potassium Carbon Dioxide BUN Creatinine Creat Clearance w eGFR AST ALT Troponin I < 0.02 B-Natriuretic Peptide TSH 0.30 L D ekg 07/08: afib 143 bpm; nl axis; no path q's; no ST-T changes tele: afib 130s-140s, down to 110-120s this am Imaging - Results Chest X-ray: Report Reviewed, Image Reviewed Assessment/Plan mibi 2012: no ischemia Echo 12/2015: nl LVSF; nl RV; mild MR/TR; RVSP 30-40 a/p: 64 f hx pafib, hx pe, copd, htn, anxiety, smoking, lung ca s/p resection, here with rash. atrial fibrillation -last saw lydia in office 2013: sinus resting HR 54, ongoing palpitations ( not all correlated with afib on prior monitor per his notes), could not incr AVN blockers further -here 2014 for rash with rapid HRs then, despite home regimen toprol 25 bid and dig 125 qod -digoxin incr'd to daily at that time with adequate HR control on tele at time of hospital discharge -current home meds list reports toprol 50 qd without dig -HR 143 initially in ER -her afib clearly does not respond to max tolerated toprol -modest response to diltiazem 20 ivp this am but dropped bp to 90s -pt does not seem to feel her afib as she denies any palpitations here or at home on DOA -will try diltiazem plus digoxin for HR control -HRs may improve as sob/cough improves -if rapid AF tx is complicated by sinus shazia (i.e. SSS), need to consider rhythm control (flecainide vs ablation), though she previously deferred ablation with dr freeman -will speak to pmd dr gayle volterred today to find out last known time pt was in sinus rhythm--further decisions regarding ? AIDA/cardioversion based on ancillary info from pmd and clinical course here (has not seen cardio since lydia 2013) -CHADS VASC 2--has been maintained on AC (xarelto at home), states she has not missed a single dose sob, acute CHF (NOS) -prior dry weights 179-180 when hospitalized here 2014 and 12/2015 -current wt 196, ? timing of this trend -has constant sob/wheezing from copd per pt--? worsening at home 1-2 wks ago due to chf (also new pedal edema then) -ER cxr reviewed by me: incr'd interstitial marking vs prior ? 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 details of provoked vs unprovoked, results of hypercoag w/u -on xarelto for AF as well HTN: -controlled -cont same meds h/o heroin abuse: -on methadone maintenance
[2016-07-09 08:53] LABS: ALBUMIN 3.1 g/dl (3.4-5.0); CALCIUM 8.5 mg/dL (8.5-10.1)
[2016-07-09 08:56] LABS: BILIRUBIN,TOTAL 0.4 mg/dL (0.2-1.0); COCKROFT - GAULT 57.205; CREATININE 1.4 mg/dL (0.55-1.02); TOT PROT 7.7 g/dl (6.4-8.2)
--- NOTE | 2016-07-09 09:07 | EKG ---
Test Reason : Blood Pressure : / mmHG Vent. Rate : 143 BPM Atrial Rate : 092 BPM P-R Int : 000 ms QRS Dur : 080 ms QT Int : 324 ms P-R-T Axes : 000 022 030 degrees QTc Int : 500 ms ATRIAL FIBRILLATION WITH RAPID VENTRICULAR RESPONSE NONSPECIFIC ST AND T WAVE ABNORMALITY ABNORMAL ECG WHEN COMPARED WITH ECG OF 09-DEC-2015 09:56, ATRIAL FIBRILLATION HAS REPLACED SINUS RHYTHM VENT. RATE HAS INCREASED BY [address] NOW DEPRESSED IN ANTERIOR LEADS NONSPECIFIC T WAVE ABNORMALITY NOW EVIDENT IN ANTERIOR LEADS Confirmed by WILLIAM CIFUENTES MD ([id number]) on 07/09/2016 9:07:00 AM Referred By: Confirmed By:WILLIAM CIFUENTES MD
[2016-07-09] MEDS ORDERED: DILTIAZEM INJECTION 125 MG in DEXTROSE 5%-WATER - 100 ML IVPB SCH (09:15)
[2016-07-09] MEDS ORDERED: dilTIAZem HCL 50 MG/10 ML - 10 ML VIAL IVPUSH ONE (09:15)
--- NOTE | 2016-07-09 10:51 | PN ---
Progress Note, Physician History of Present Illness: pulmonary alert,still c/o sob,cp - Current Medication List Current Medications: Active Medications Acetaminophen (Tylenol -) 650 mg PO Q6H PRN PRN Reason: FEVER OR PAIN Last Admin: 07/08/16 23:54 Dose: 650 mg Albuterol/Ipratropium (Duoneb -) 1 amp NEB Q6H PRN PRN Reason: SHORTNESS OF BREATH Albuterol/Ipratropium (Duoneb -) 1 amp NEB QIDR [facility] Last Admin: 07/09/16 06:12 Dose: 1 amp Aspirin (Ecotrin -) 81 mg PO DAILY [facility] Last Admin: 07/09/16 09:27 Dose: Not Given Clonazepam (Klonopin -) 1 mg PO BID [facility] Last Admin: 07/09/16 09:27 Dose: Not Given Diltiazem HCl (Cardizem Injection -) 5 mg IVPUSH Q4H PRN PRN Reason: TACHYCARDIA Last Admin: 07/09/16 08:22 Dose: 5 mg Docusate Sodium (Colace -) 100 mg PO TID [facility] Last Admin: 07/09/16 06:02 Dose: Not Given Furosemide (Lasix Injection -) 40 mg IVPUSH DAILY [facility] Last Admin: 07/09/16 09:27 Dose: Not Given Gabapentin (Neurontin -) 300 mg PO TID [facility] Last Admin: 07/09/16 06:01 Dose: 300 mg Ceftriaxone Sodium (Rocephin 1gm Ivpb (Pre-Docked)) 50 mls @ 100 mls/hr IVPB DAILY [facility] Last Admin: 07/09/16 09:27 Dose: Not Given Pantoprazole Sodium (Protonix 40mg Ivpb (Pre-Docked)) 100 mls @ 200 mls/hr IVPB DAILY [facility] Levetiracetam (Keppra -) 500 mg PO BID [facility] Last Admin: 07/09/16 09:27 Dose: Not Given Lidocaine (Lidoderm Patch -) 1 patch TP DAILY [facility] Methadone HCl 40 mg/ Methadone (HCl 20 mg/ Methadone HCl 5 mg) 65 mg PO DAILY@ 0600 [facility] Last Admin: 07/09/16 08:17 Dose: 65 mg Methylprednisolone Sodium Succinate (Solu-Medrol -) 40 mg IVPB BID [facility] Last Admin: 07/09/16 09:27 Dose: Not Given Metoprolol Succinate (Toprol Xl -) 50 mg PO DAILY [facility] Last Admin: 07/09/16 09:27 Dose: Not Given Nicotine (Nicoderm Patch -) 21 mg TD DAILY PRN PRN Reason: NICOTINE REPLACEMENT RX Last Admin: 07/09/16 08:31 Dose: 21 mg Ondansetron HCl (Zofran Injection) 4 mg IVPB Q4H PRN PRN Reason: NAUSEA AND/OR VOMITING Quetiapine Fumarate (Seroquel -) 300 mg PO HS [facility] Last Admin: 07/08/16 23:20 Dose: 300 mg Quetiapine Fumarate (Seroquel -) 25 mg PO DAILY PRN PRN Reason: ANXIETY Rivaroxaban (Xarelto -) 20 mg PO [facility] Last Admin: 07/08/16 23:20 Dose: 20 mg Fluticasone/Salmeterol (Advair 100mcg/50mcg -) 1 puff IH BID [facility] Last Admin: 07/09/16 09:27 Dose: Not Given - Objective Vital Signs: Vital Signs Temperature 98.1 F 07/09/16 06:00 Pulse Rate 128 H 07/09/16 10:30 Respiratory Rate 16 07/09/16 10:30 Blood Pressure 95/54 07/09/16 10:30 O2 Sat by Pulse Oximetry (%) 98 07/08/16 21:44 Constitutional: Yes: Well Nourished Eyes: Yes: WNL HENT: Yes: WNL Neck: Yes: WNL Cardiovascular: Yes: Pulse Irregular, S1, S2 Respiratory: Yes: Wheezes (scattered mariusz wheezes) Gastrointestinal: Yes: Normal Bowel Sounds, Soft Extremities: Yes: WNL Edema: No Labs: CBC, BMP 07/09/16 05:35 07/09/16 05:35 INR, PTT INR 1.27 (0.82-1.09) H 07/08/16 03:50 Assessment/Plan Problem List - Problems (1) Rapid atrial fibrillation Code(s): I48.91 - UNSPECIFIED ATRIAL FIBRILLATION (2) Chest pain Code(s): R07.9 - CHEST PAIN, UNSPECIFIED Qualifiers: Chest pain type: other chest pain Qualified Code(s): R07.89 - Other chest pain; R07.8 - Other chest pain (3) COPD (chronic obstructive pulmonary disease) Code(s): J44.9 - CHRONIC OBSTRUCTIVE PULMONARY DISEASE, UNSPECIFIED (4) H/O: lung cancer Code(s): Z85.118 - PERSONAL HISTORY OF MALIGNANT NEOPLASM OF BRONCHUS AND LUNG (5) Hypertension Code(s): I10 - ESSENTIAL (PRIMARY) HYPERTENSION (6) Opiate use Code(s): F11.90 - OPIOID USE, UNSPECIFIED, UNCOMPLICATED (7) Thyroid nodule Code(s): E04.1 - NONTOXIC SINGLE THYROID NODULE (8) COPD (chronic obstructive pulmonary disease) with emphysema Code(s): J43.9 - EMPHYSEMA, UNSPECIFIED Assessment/Plan RATE CONTROL CONTINUE A/C O2 SUPPLEMENTATION BRONCHODILATORS ANALGESIA FOR ACUTE LEFT RIB FX'S SMOKING CESSATION/TAPER STEROIDS ANTIBIOTICS CHEST CT DR LOWE
[2016-07-09] MEDS: LIDOCAINE 5% TOPICAL PATCH TP SCH (10:57)
[2016-07-09] MEDS: PANTOPRAZOLE SODIUM 100 ML IVPB SCH (10:58)
[2016-07-09] MEDS ORDERED: FUROSEMIDE 40 MG/4 ML INJECTABLE VIAL IVPUSH ONE (11:32)
[2016-07-09] MEDS: DIGOXIN 0.125 MG TABLET (FP) PO SCH (11:46)
[2016-07-09] MEDS: QUEtiapine FUMARATE 25 MG TABLET (FP) PO PRN ×2 (12:40→12:44)
[2016-07-09] MEDS: dilTIAZem HCL 60 MG TABLET (FP) PO SCH ×4 (12:43→21:16)
--- NOTE | 2016-07-09 15:26 | PN ---
Physical Exam: SUBJECTIVE: Patient seen and examined at bed side this morning. Still complaining of chest pain under the left breast. Patient mentioned she has a h/ o seizure for which she takes keppra 500mg BID and is compliant. However she is having frequent seizures, last seizure was 2 weeks ago. Had 3 falls within past 2 months. Last fall was 1 week ago. Denies sob, cough, palpitation, abdominal pain, nausea or vomiting. Bowel/ Bladder habit normal. Sleep/Appetite normal. As per the RN, patient refused to use Bipap at night. Was insisting on drinking coffee and was anxious. RN mentioned that her HR went up to 150's this morning, was given 5mg of IV Cardizem. OBJECTIVE: Vital Signs Period Temp Pulse Resp BP Sys/Smyth Pulse Ox Last 24 Hr 97.9 F-98.4 F 109-154 16-20 92-125/54-91 94-98 GENERAL: The patient is obese, sitting comfortably in a chair, awake, alert, and fully oriented, in no acute distress. HEAD: Normal with no signs of trauma. EYES: EOM intact, no pallor or icterus. ENT: Ears normal moist mucous membranes. NECK: Trachea midline, full range of motion, supple. Thyroid fullness. LUNGS: Breath sounds equal, scattered rhonchi bilaterally, no wheezes, no crackles, no accessory muscle use. HEART: Irregularly irregular rate and rhythm, S1, S2 without murmur, rub or gallop. ABDOMEN: Soft, nontender, nondistended, normoactive bowel sounds, no guarding, no rebound, no hepatosplenomegaly, no masses. EXTREMITIES: 2+ pulses, warm, well-perfused,trace pedal edema. Tenderness on palpation over the right great toe. NEUROLOGICAL: Cranial nerves II through XII grossly intact. Normal speech, gait not observed. PSYCH: Normal mood, normal affect. SKIN: Warm, dry, normal turgor, no rashes or lesions noted Laboratory Results - last 24 hr 07/08/16 07/08/16 07/08/16 12:36 18:31 19:47 WBC RBC Hgb Hct MCV MCHC RDW Plt Count MPV Neutrophils % Lymphocytes % Monocytes % Eosinophils % Basophils % Sodium Potassium Chloride Carbon Dioxide Anion Gap BUN Creatinine Creat Clearance w eGFR Random Glucose Calcium Total Bilirubin AST ALT Alkaline Phosphatase Troponin I < 0.02 Total Protein Albumin Urine Color Ltyellow Urine Appearance Clear Urine pH 5.0 Ur Specific [place]well 1.015 Urine Protein Negative Urine Glucose (UA) Negative Urine Ketones Negative Urine Blood 2+ H Urine Nitrite Negative Urine Bilirubin Negative Urine Urobilinogen Negative Ur Leukocyte Esterase Negative Urine RBC 1 Urine WBC <1 Ur Epithelial Cells Rare Hyaline Casts 1 Urine Mucus Rare Opiates Screen Negative Methadone Screen Positive Barbiturate Screen Negative Phencyclidine Screen Negative Ur Amphetamines Screen Negative MDMA (Ecstasy) Screen Negative Benzodiazepines Screen Negative Cocaine Screen Negative U Marijuana (THC) Screen Positive 07/09/16 07/09/16 05:35 05:35 WBC 14.9 H D RBC 4.05 Hgb 12.9 Hct 38.5 MCV 95.0 MCHC 33.5 RDW 13.8 Plt Count 175 MPV 9.6 Neutrophils % 91.2 H Lymphocytes % 5.4 L Monocytes % 2.5 L D Eosinophils % 0.0 Basophils % 0.9 D Sodium 137 Potassium 4.2 Chloride 101 Carbon Dioxide 22 Anion Gap 14 BUN 32 H D Creatinine 1.4 H Creat Clearance w eGFR 37.86 Random Glucose 169 H Calcium 8.5 Total Bilirubin 0.4 D AST 24 D ALT 32 D Alkaline Phosphatase 80 Troponin I Total Protein 7.7 Albumin 3.1 L Urine Color Urine Appearance Urine pH Ur Specific [place] Urine Protein Urine Glucose (UA) Urine Ketones Urine Blood Urine Nitrite Urine Bilirubin Urine Urobilinogen Ur Leukocyte Esterase Urine RBC Urine WBC Ur Epithelial Cells Hyaline Casts Urine Mucus Opiates Screen Methadone Screen Barbiturate Screen Phencyclidine Screen Ur Amphetamines Screen MDMA (Ecstasy) Screen Benzodiazepines Screen Cocaine Screen U Marijuana (THC) Screen Active Medications Generic Name Dose Route Start Last Admin Trade Name Freq PRN Reason Stop Dose Admin Acetaminophen 650 mg 07/08/16 06:03 07/08/16 23:54 Tylenol - PO 650 mg Q6H PRN Administration FEVER OR PAIN Albuterol/Ipratropium 1 amp 07/08/16 06:07 Duoneb - NEB Q6H PRN SHORTNESS OF BREATH Albuterol/Ipratropium 1 amp 07/08/16 12:00 07/09/16 11:45 Duoneb - NEB 1 amp QIDR [facility] Administration Clonazepam 1 mg 07/08/16 10:00 07/09/16 09:27 Klonopin - PO Not Given BID [facility] Digoxin 0.125 mg 07/09/16 11:45 07/09/16 11:46 Lanoxin - PO 0.125 mg DAILY [facility] Administration Diltiazem HCl 5 mg 07/09/16 00:01 07/09/16 08:22 Cardizem Injection - IVPUSH 5 mg Q4H PRN Administration TACHYCARDIA Diltiazem HCl 60 mg 07/09/16 14:00 07/09/16 14:33 Cardizem - PO Not Given QID [facility] Docusate Sodium 100 mg 07/08/16 14:00 07/09/16 14:34 Colace - PO Not Given TID [facility] Gabapentin 300 mg 07/08/16 14:00 07/09/16 14:34 Neurontin - PO Not Given TID [facility] Ceftriaxone Sodium 50 mls @ 100 mls/hr 07/09/16 10:00 07/09/16 09:27 Rocephin 1gm Ivpb (Pre-Docked) IVPB Not Given DAILY [facility] Pantoprazole Sodium 100 mls @ 200 mls/hr 07/09/16 10:00 07/09/16 10:58 Protonix 40mg Ivpb (Pre-Docked) IVPB 200 mls/hr DAILY [facility] Administration Levetiracetam 500 mg 07/08/16 10:00 07/09/16 09:27 Keppra - PO Not Given BID [facility] Lidocaine 1 patch 07/09/16 10:00 07/09/16 10:57 Lidoderm Patch - TP 1 patch DAILY [facility] Administration Methadone HCl 40 mg/ Methadone 65 mg 07/09/16 08:30 07/09/16 08:17 HCl 20 mg/ Methadone HCl 5 mg PO 65 mg DAILY@0600 [facility] Administration Methylprednisolone Sodium Succinate 40 mg 07/08/16 10:00 07/09/16 09:27 Solu-Medrol - IVPB Not Given BID [facility] Nicotine 21 mg 07/08/16 10:00 07/09/16 08:31 Nicoderm Patch - TD 21 mg DAILY PRN Administration NICOTINE REPLACEMENT RX Ondansetron HCl 4 mg 07/08/16 06:03 Zofran Injection IVPB Q4H PRN NAUSEA AND/OR VOMITING Quetiapine Fumarate 300 mg 07/08/16 22:00 07/08/16 23:20 Seroquel - PO 300 mg HS [facility] Administration Quetiapine Fumarate 25 mg 07/08/16 09:35 07/09/16 12:44 Seroquel - PO 25 mg DAILY PRN Administration ANXIETY Rivaroxaban 20 mg 07/08/16 22:00 07/08/16 23:20 Xarelto - PO 20 mg HS [facility] Administration Fluticasone/Salmeterol 1 puff 07/08/16 10:00 07/09/16 09:27 Advair 100mcg/50mcg - IH Not Given BID [facility] ASSESSMENT/PLAN: Patient is a 65 year old lady with h/o COPD, RA, Lung ca with local reoccurance , benign adrenal mass, a-fib, DVT, hypotension, hep. C, thyriod nodules, PVD, HTN who BIB EMS with SOB. # Acute hypoxic respiratory failure Patient presented with SOB Rule out PNA COPD and CHF CXR : Left rib fracture. No evidence of pneumonia. ABG- PH 7.3, CO2 47, O2 70 BNP 6000s Placed on BIPAP overnight but patient didn't use it. StartDuonebs, supp O2, IV Steroids 40mg BID Continue home Lasix IV 40 Daily IV Ceftriaxone to be continued # AFIB w RVR with acute diastolic heart failure Given 70mg IV Diltiazem in ER Received 20mg IV Diltiazem this morning with 5mg IV PRN Continue Rivaroxaban 20mg Continuous Cardiac monitoring Daily Weights I's and O's # HTN Continue home meds Metoprolol 50mg # Left sided Rib pain S/P fall Rib fracture on cx ray Pain control -on Methadone and has lidocaine patch so will not give additional narcotics. # Hx of heroin abuse On Methadone 65mg Daily (dose confirmed) # Hx of Seizures Last seizure was 2 weeks ago despite being on keppra 500mg BID Neurology consult requested Fall precautions # PVD Continue ASA # H/o anxiety cont seroquel . 300 HS and 25 q AM PRN # Prophylaxis For DVT: on rivaroxaban For GI: not indicated # FEN Not on IV fluids Electrolytes to be repeated in am Low salt diet # Code Status: Full Code # Dispo- Admitted in Tele. Duration of stay unknown. Illness, Investigation and Plan of care explained to the patient. She verbalized understanding. Case seen and discussed with Dr. Marino. Visit type - Emergency Visit Emergency Visit: Yes ED Registration Date: 05/07/17 Care time: The patient presented to the Emergency Department on the above date and was hospitalized for further evaluation of their emergent condition. - New Patient This patient is new to me today: Yes Date on this admission: 07/09/16 - Critical Care Critical Care patient: No
--- NOTE | 2016-07-09 18:58 | PN ---
Teaching Attending Note Name of Resident: Alisha Grossman ATTENDING PHYSICIAN STATEMENT I saw and evaluated the patient. I reviewed the resident's note and discussed the case with the resident. I agree with the resident's findings and plan as documented. SUBJECTIVE: Has L sided CP , below L breast . no palpitations, SOB is better . has no fever OBJECTIVE: NAD , awake ,alert and oriented x 3. MMM. CV: irreg irreg , tachy . Lungs: Generalized wheezes, no crackles EXt: 1+ pitting edema R>L ( improved compared to yesterday ) . 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 C, thyriod nodules, who presented with worsening SOB x 1 week, wheezing , fever and increased sputum production. She was found to have acute COPD exa, with Afib in RVR. 1- Acute hypoxic resp failure , likely due to COPD exacerbation with component of pulm edema in setting of rapid A fib . - cont steroids at current dose today - Duo-Nebs QID and PRN - BIpap at night - cont lasix - cont advair - ceftriaxone day / 2- acute diastolic heart failure , due to Afib with RVR - no accurate I&O documentation in past 24 hr while in ER - Cr slightly increased - careful diuresis on a daily basis - echo reviewed . 3- A fib with RVR. poorly controlled rate . was hard to control in past due to hypotension. responded transiently to cardizem IV today. tele reviewed. -BB were held - continue digoxin carefully due to SYED - will check level on 07/11 - cardizem IV PRN, pending further Recs by Card as Cardioversion is a possibility - appreciate cardiac input - cont xarelto 4- L sided rib Fx : -lidocaine pacth - on methadone , will not give additional narcotics, as she looks comfortable 5- h/o Seizure , reports having multiple seizures last month . I don't think pt is compliant with her keppra , as she id not pick her keppra since 06/07 . cont Keppra . consult neuro 6- h/o heroin abuse - cont methadone 7- h/o anxiety : cont seroquel . 300 HS and 25 q AM PRN 8- DVT px : on xarelto Dispo : HLOC
--- NOTE | 2016-07-09 19:15 | CON.NEURO ---
Consult Consult Specialty:: NEurology - History of Present Illness History of Present Illness: 65 y/o lady with h/o COPD, RA, Lung ca with local reoccurance, benign adrenal mass, a-fib, DVT hypotension, hep. C, thyriod nodules, PVD, HTN who BIB EMS with SOB She reports 1 week ago she fell and hurt the left side of her Ribs. She reports having dry cough and left sided chest pain associated with coughing. being treated for COPD exacerbation sees pain management --on methadone for pain (vs ex-heroine); since last 5 months, ? falls with tremor --seen by neuro, ? 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 Cardio/Vascular: Yes: AFIB, HTN, Hyperlipdemia Pulmonary: Yes: COPD Gastrointestinal: Yes: Other (HEP C) Hepatobiliary: Yes: Hepatitis C Renal/: No: Renal Failure ...: No Infectious Disease: Yes: Other (recent hx of admission to the hosp for pneumonia ) Psych: Yes: Addictions (WAS ON 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), Anxiety Musculoskeletal: Yes: Chronic low back pain Rheumatology: No: Fibromyalgia ENT: No: Allergic Rhinitis Endocrine: Yes: Other (benign adrenal nodule s/p bx) - Past Surgical History Additional Surgical History: RESECTION OF LEFT UPPER LOBE - Alcohol/Substance Use Hx Alcohol Use: No History of Substance Use: reports: None - Smoking History Smoking history: Current every day smoker Have you smoked in the past 12 months: Yes Aproximately how many cigarettes per day: 20 If you are a former smoker, when did you quit?: 03-17-13 - Social History Usual Living Arrangement: Alone (considered w/a terminally ill condition which enables her get the single room she is currently in.) History of Recent Travel: No Home Medications - Allergies Allergies/Adverse Reactions: Allergies Allergy/AdvReac Type Severity Reaction Status Date / Time No Known Allergies Allergy Verified 07/08/16 03:36 - Home Medications Home Medications: Ambulatory Orders Clonazepam [KlonoPIN -] 1 mg PO BID 10/19/14 Methadone [Dolophine -] 65 mg PO DAILY 10/19/14 Tiotropium Alv[place] [Spiriva] 1 inh PO BID 10/19/14 Quetiapine Fumarate [Seroquel -] 300 mg PO HS 02/05/15 Aspirin Coated [Ecotrin -] 81 mg PO DAILY tablet.ec 09/22/15 Docusate Sodium [Colace -] 100 mg PO TID capsule 09/22/15 Albuterol Sulfate Inhaler - [Ventolin HFA Inhaler -] 2 inh PO Q4H PRN 12/08/15 Nicotine Patch [Nicoderm Patch -] 1 patch TD DAILY PRN 12/08/15 Rivaroxaban [Xarelto -] 20 mg PO DAILY 12/10/15 Fluticasone/Salmeterol [Advair 250-50 Diskus] 1 puff IN BID 07/08/16 Furosemide [Lasix] 20 mg PO DAILY 07/08/16 Gabapentin [Neurontin] 300 mg PO TID 07/08/16 Levetiracetam [Keppra -] 500 mg PO BID 07/08/16 Metoprolol Succinate [Toprol Xl] 50 mg PO DAILY 07/08/16 Quetiapine Fumarate [Seroquel -] 25 mg PO DAILY PRN 07/08/16 Family Disease History - Family Disease History Family Disease History: Other: Father (ETOH DEPENDENT), Mother (HAD CVA AND ) Physical Exam-Neuro Vital Signs: Vital Signs Temperature 97.7 F 07/09/16 17:00 Pulse Rate 120 H 07/09/16 17:00 Respiratory Rate 20 07/09/16 17:00 Blood Pressure 111/79 07/09/16 17:00 O2 Sat by Pulse Oximetry (%) 95 07/09/16 12:17 Constitutional: Yes: Anxious Neck: Yes: Supple Cardiovascular: Yes: Regular Rate and Rhythm Respiratory: Yes: WNL, CTA Bilaterally Labs: CBC, BMP 07/09/16 05:35 07/09/16 05:35 INR, PTT INR 1.27 (0.82-1.09) H 07/08/16 03:50 - Neuro Exam Level Of Consciousness: Yes: Alert, Oriented to Person (awake and follows 3 stesp, EOMI, no facial, motor: no weakness, + tremor positional, no cogwheeling , reflexes trace , plantars down ) NIH Stroke Scale - Total Score NIH Stroke Scale Score: 0 Problem List - Problems (1) COPD (chronic obstructive pulmonary disease) with emphysema Code(s): J43.9 - EMPHYSEMA, UNSPECIFIED (2) Generalized epilepsy Code(s): G40.309 - GEN IDIOPATHIC EPILEPSY, NOT INTRACTABLE, W/O STAT EPI (3) Tremor Code(s): R25.1 - TREMOR, UNSPECIFIED (4) A-fib Code(s): I48.91 - UNSPECIFIED ATRIAL FIBRILLATION Qualifiers: Atrial fibrillation type: chronic Qualified Code(s): I48.2 - Chronic atrial fibrillation Assessment/Plan 65 y/o lady with h/o COPD, RA, Lung ca with local reoccurance, benign adrenal mass, a-fib, DVT hypotension, hep. C, thyriod nodules, PVD, HTN who BIB EMS with SOB She reports 1 week ago she fell and hurt the left side of her Ribs. She reports having dry cough and left sided chest pain associated with coughing. being treated for COPD exacerbation sees pain management --on methadone for pain (vs ex-heroine); since last 5 months, ? falls with tremor --seen by neuro outpt, ? seizures dx, EEG was done (Dr Delgado) episodes last 10-15 seconds associated with LOC (?) pt does not know results, started on KEPPRA 500BID empirically , as per house staff , she has not picked up since 06/18 Possible Epilepsy-- would continue Keppra 500BID ( ? prior compliance) plz get outpt EEg that was done if possible TRemor: positional with few beats of asterixis; likely metabolic/RX/infectious induced vs less likely ET, low TSH, elevated creatinine, elevated WBC maybe factors as well Dr Ferrara [phone]
[2016-07-09] MEDS: QUEtiapine FUMARATE 50 MG TABLET PO SCH (21:16)
[2016-07-09] MEDS: RIVAROXABAN 20 MG TABLET PO SCH (21:16)
[2016-07-09] MEDS: ACETAMINOPHEN 325 MG TABLET (FP) PO PRN (21:18)
[2016-07-10] MEDS: FLUTICASONE/SALMETEROL 100 MCG/50 MCG DISKUS IH SCH ×3 (02:07→21:46)
[2016-07-10] MEDS ORDERED: METHADONE HCL 40 MG DISPERSABLE TABLET ONE (06:12)
[2016-07-10] MEDS ORDERED: METHADONE HCL 5 MG TABLET ONE (06:12)
[2016-07-10] MEDS ORDERED: METHADONE HCL 10 MG TABLET ONE (06:12)
[2016-07-10] MEDS: METHADONE 40 MG, METHADONE 20 MG, METHADONE 5 MG PO SCH (06:48)
[2016-07-10] MEDS: GABAPENTIN 300 MG CAPSULE (FP) PO SCH ×3 (06:48→21:43)
[2016-07-10] MEDS: DOCUSATE SODIUM 100 MG CAPSULE (FP) PO SCH ×3 (06:48→21:43)
[2016-07-10 08:03] LABS: MCH 31.3 pg (25.7-33.7); MEAN CELL VOLUME 94.9 fl (80-96); MEAN PLT VOLUME 9.3 fl (7.5-11.1); PLATELET COUNT 196 K/MM3 (134-434); RDW 13.8 % (11.6-15.6); WHITE BLOOD COUNT 15.5 K/mm3 (4.0-10.0)
--- NOTE | 2016-07-10 08:22 | PN ---
Physical Exam: SUBJECTIVE: Patient seen and examined this morning. Patient mentions that her breathing has improved. She didn't use Bipap overnight. Denies sob, cough, palpitation, abdominal pain, nausea or vomiting. Had 2 episodes of bowel movement thi morning. Didn't contain any blood. Bladder habit normal. Sleep/ Appetite normal. As per the RN, HR went up to 120's but was controlled with IV Cardizem 5mg push. OBJECTIVE: Vital Signs Period Temp Pulse Resp BP Sys/Smyth Pulse Ox Last 24 Hr 97.6 F-98.1 F 103-154 16-22 92-125/54-96 95-96 GENERAL: The patient is obese, sitting comfortably in bed, awake, alert, and fully oriented, in no acute distress. HEAD: Normal with no signs of trauma. EYES: EOM intact, no pallor or icterus. ENT: Ears normal moist mucous membranes. NECK: Trachea midline, full range of motion, supple. Thyroid fullness. LUNGS: Breath sounds equal, scattered rhonchi bilaterally, no wheezes, no crackles, no accessory muscle use. HEART: Irregularly irregular rate and rhythm, S1, S2 without murmur, rub or gallop. ABDOMEN: Soft, nontender, nondistended, normoactive bowel sounds, no guarding, no rebound, no hepatosplenomegaly, no masses. EXTREMITIES: 2+ pulses, warm, well-perfused,trace pedal edema. Tenderness on palpation over the right great toe. NEUROLOGICAL: Cranial nerves II through XII grossly intact. Normal speech, gait not observed. PSYCH: Normal mood, normal affect. SKIN: Warm, dry, normal turgor, no rashes or lesions noted Laboratory Results - last 24 hr 07/08/16 07/09/16 07/09/16 12:36 05:35 05:35 WBC 14.9 H D RBC 4.05 Hgb 12.9 Hct 38.5 MCV 95.0 MCHC 33.5 RDW 13.8 Plt Count 175 MPV 9.6 Neutrophils % 91.2 H Lymphocytes % 5.4 L Monocytes % 2.5 L D Eosinophils % 0.0 Basophils % 0.9 D Sodium 137 Potassium 4.2 Chloride 101 Carbon Dioxide 22 Anion Gap 14 BUN 32 H D Creatinine 1.4 H Creat Clearance w eGFR 37.86 POC Glucometer Random Glucose 169 H Calcium 8.5 Total Bilirubin 0.4 D AST 24 D ALT 32 D Alkaline Phosphatase 80 Total Protein 7.7 Albumin 3.1 L Ur Specific [place] 1.015 07/09/16 15:37 WBC RBC Hgb Hct MCV MCHC RDW Plt Count MPV Neutrophils % Lymphocytes % Monocytes % Eosinophils % Basophils % Sodium Potassium Chloride Carbon Dioxide Anion Gap BUN Creatinine Creat Clearance w eGFR POC Glucometer 208 Random Glucose Calcium Total Bilirubin AST ALT Alkaline Phosphatase Total Protein Albumin Ur Specific [place] Active Medications Generic Name Dose Route Start Last Admin Trade Name Freq PRN Reason Stop Dose Admin Acetaminophen 650 mg 07/08/16 06:03 07/09/16 21:18 Tylenol - PO 650 mg Q6H PRN Administration FEVER OR PAIN Albuterol/Ipratropium 1 amp 07/08/16 06:07 Duoneb - NEB Q6H PRN SHORTNESS OF BREATH Albuterol/Ipratropium 1 amp 07/08/16 12:00 07/10/16 00:00 Duoneb - NEB 1 amp QIDR [facility] Administration Clonazepam 1 mg 07/08/16 10:00 07/09/16 21:16 Klonopin - PO 1 mg BID [facility] Administration Digoxin 0.125 mg 07/09/16 11:45 07/09/16 11:46 Lanoxin - PO 0.125 mg DAILY [facility] Administration Diltiazem HCl 5 mg 07/09/16 00:01 07/09/16 08:22 Cardizem Injection - IVPUSH 5 mg Q4H PRN Administration TACHYCARDIA Diltiazem HCl 60 mg 07/09/16 14:00 07/09/16 21:16 Cardizem - PO 60 mg QID [facility] Administration Docusate Sodium 100 mg 07/08/16 14:00 07/10/16 06:48 Colace - PO 100 mg TID [facility] Administration Gabapentin 300 mg 07/08/16 14:00 07/10/16 06:48 Neurontin - PO 300 mg TID [facility] Administration Ceftriaxone Sodium 50 mls @ 100 mls/hr 07/09/16 10:00 07/09/16 09:27 Rocephin 1gm Ivpb (Pre-Docked) IVPB Not Given DAILY [facility] Pantoprazole Sodium 100 mls @ 200 mls/hr 07/09/16 10:00 07/09/16 10:58 Protonix 40mg Ivpb (Pre-Docked) IVPB 200 mls/hr DAILY [facility] Administration Levetiracetam 500 mg 07/08/16 10:00 07/09/16 21:16 Keppra - PO 500 mg BID [facility] Administration Lidocaine 1 patch 07/09/16 10:00 07/09/16 10:57 Lidoderm Patch - TP 1 patch DAILY [facility] Administration Methadone HCl 40 mg/ Methadone 65 mg 07/09/16 08:30 07/10/16 06:48 HCl 20 mg/ Methadone HCl 5 mg PO 65 mg DAILY@0600 [facility] Administration Methylprednisolone Sodium Succinate 40 mg 07/08/16 10:00 07/09/16 21:15 Solu-Medrol - IVPB 40 mg BID [facility] Administration Nicotine 21 mg 07/08/16 10:00 07/09/16 08:31 Nicoderm Patch - TD 21 mg DAILY PRN Administration NICOTINE REPLACEMENT RX Ondansetron HCl 4 mg 07/08/16 06:03 Zofran Injection IVPB Q4H PRN NAUSEA AND/OR VOMITING Quetiapine Fumarate 300 mg 07/08/16 22:00 07/09/16 21:16 Seroquel - PO 300 mg HS [facility] Administration Quetiapine Fumarate 25 mg 07/08/16 09:35 07/09/16 12:44 Seroquel - PO 25 mg DAILY PRN Administration ANXIETY Rivaroxaban 20 mg 07/08/16 22:00 07/09/16 21:16 Xarelto - PO 20 mg HS [facility] Administration Fluticasone/Salmeterol 1 puff 07/08/16 10:00 07/10/16 02:07 Advair 100mcg/50mcg - IH Not Given BID [facility] ASSESSMENT/PLAN: Patient is a 65 year old lady with h/o COPD, RA, Lung ca with local reoccurance , benign adrenal mass, a-fib, DVT, hypotension, hep. C, thyriod nodules, PVD, HTN who BIB EMS with SOB. # Acute hypoxic respiratory failure Patient presented with SOB Rule out PNA COPD and CHF CXR : Left rib fracture. No evidence of pneumonia. ABG- PH 7.3, CO2 47, O2 70 BNP 6000s Placed on BIPAP overnight but patient didn't use it. Start Duonebs, supp O2, IV Steroids 40mg BID Continue home Lasix IV 40 Daily IV Ceftriaxone Day 3- Stopped today as there are no signs of infection or pnuemonia. # AFIB w RVR with acute diastolic heart failure Given 70mg IV Diltiazem in ER Received 20mg IV Diltiazem yesterday morning with 5mg IV PRN Continue Rivaroxaban 20mg Continuous Cardiac monitoring Daily Weights I's and O's # HTN Metoprolol stopped and started on Digoxin. WIll get digoxin level tomorrow. # Left sided Rib pain S/P fall Rib fracture on cx ray Pain control -on Methadone and has lidocaine patch so will not give additional narcotics. # Hx of heroin abuse On Methadone 65mg Daily (dose confirmed) # Hx of Seizures Last seizure was 2 weeks ago despite being on keppra 500mg BID Neurology consult appreciated Fall precautions # Tremors of extremities likely metabolic vs infectious induced vs less likely Essential Tremor, # PVD Continue ASA # H/o anxiety cont seroquel . 300 HS and 25 q AM PRN # Prophylaxis For DVT: on rivaroxaban For GI: not indicated # FEN Not on IV fluids Electrolytes to be repeated in am Low salt diet # Code Status: Full Code # Dispo- Admitted in Tele. Duration of stay unknown. Illness, Investigation and Plan of care explained to the patient. She verbalized understanding. Case seen and discussed with Dr. Marino. Visit type - Emergency Visit Emergency Visit: Yes ED Registration Date: 07/08/16 Care time: The patient presented to the Emergency Department on the above date and was hospitalized for further evaluation of their emergent condition. - New Patient This patient is new to me today: No - Critical Care Critical Care patient: No
[2016-07-10 09:01] LABS: ALBUMIN 3.4 g/dl (3.4-5.0); BILIRUBIN,TOTAL 0.3 mg/dL (0.2-1.0); CALCIUM 8.4 mg/dL (8.5-10.1); COCKROFT - GAULT 73.389; CREATININE 1.1 mg/dL (0.55-1.02); TOT PROT 8.3 g/dl (6.4-8.2)
[2016-07-10] MEDS: LIDOCAINE 5% TOPICAL PATCH TP SCH (09:17)
[2016-07-10] MEDS: PANTOPRAZOLE SODIUM 100 ML IVPB SCH (09:19)
[2016-07-10] MEDS: CEFTRIAXONE 50 ML IVPB SCH (09:19)
[2016-07-10] MEDS: DIGOXIN 0.125 MG TABLET (FP) PO SCH (09:19)
[2016-07-10] MEDS: levETIRAcetam 500 MG TABLET (FP) PO SCH ×2 (09:19→21:43)
[2016-07-10] MEDS: clonazePAM 0.5 MG TABLET PO SCH ×2 (09:20→21:42)
[2016-07-10] MEDS: methylPREDNISolone NA SUCC 40 MG/1 ML VIAL IVPB SCH ×3 (09:20→21:41)
[2016-07-10] MEDS: dilTIAZem HCL 60 MG TABLET (FP) PO SCH ×4 (09:20→21:43)
--- NOTE | 2016-07-10 10:32 | PN ---
Progress Note, Physician History of Present Illness: PULMONARY ALERT,LCONGESTED ,+COUGH,-CP. - Current Medication List Current Medications: Active Medications Acetaminophen (Tylenol -) 650 mg PO Q6H PRN PRN Reason: FEVER OR PAIN Last Admin: 07/09/16 21:18 Dose: 650 mg Albuterol/Ipratropium (Duoneb -) 1 amp NEB Q6H PRN PRN Reason: SHORTNESS OF BREATH Albuterol/Ipratropium (Duoneb -) 1 amp NEB QIDR [facility] Last Admin: 07/10/16 00:00 Dose: 1 amp Clonazepam (Klonopin -) 1 mg PO BID [facility] Last Admin: 07/10/16 09:20 Dose: 1 mg Digoxin (Lanoxin -) 0.125 mg PO DAILY [facility] Last Admin: 07/10/16 09:19 Dose: 0.125 mg Diltiazem HCl (Cardizem Injection -) 5 mg IVPUSH Q4H PRN PRN Reason: TACHYCARDIA Last Admin: 07/09/16 08:22 Dose: 5 mg Diltiazem HCl (Cardizem -) 60 mg PO QID [facility] Last Admin: 07/10/16 09:20 Dose: 60 mg Docusate Sodium (Colace -) 100 mg PO TID [facility] Last Admin: 07/10/16 06:48 Dose: 100 mg Gabapentin (Neurontin -) 300 mg PO TID [facility] Last Admin: 07/10/16 06:48 Dose: 300 mg Ceftriaxone Sodium (Rocephin 1gm Ivpb (Pre-Docked)) 50 mls @ 100 mls/hr IVPB DAILY [facility] Last Admin: 07/10/16 09:19 Dose: 100 mls/hr Pantoprazole Sodium (Protonix 40mg Ivpb (Pre-Docked)) 100 mls @ 200 mls/hr IVPB DAILY [facility] Last Admin: 07/10/16 09:19 Dose: 200 mls/hr Levetiracetam (Keppra -) 500 mg PO BID [facility] Last Admin: 07/10/16 09:19 Dose: 500 mg Lidocaine (Lidoderm Patch -) 1 patch TP DAILY [facility] Last Admin: 07/10/16 09:17 Dose: 1 patch Methadone HCl 40 mg/ Methadone (HCl 20 mg/ Methadone HCl 5 mg) 65 mg PO DAILY@ 0600 [facility] Last Admin: 07/10/16 06:48 Dose: 65 mg Methylprednisolone Sodium Succinate (Solu-Medrol -) 40 mg IVPB BID [facility] Last Admin: 07/10/16 09:20 Dose: 40 mg Nicotine (Nicoderm Patch -) 21 mg TD DAILY PRN PRN Reason: NICOTINE REPLACEMENT RX Last Admin: 07/09/16 08:31 Dose: 21 mg Ondansetron HCl (Zofran Injection) 4 mg IVPB Q4H PRN PRN Reason: NAUSEA AND/OR VOMITING Quetiapine Fumarate (Seroquel -) 300 mg PO HS [facility] Last Admin: 07/09/16 21:16 Dose: 300 mg Quetiapine Fumarate (Seroquel -) 25 mg PO DAILY PRN PRN Reason: ANXIETY Last Admin: 07/09/16 12:44 Dose: 25 mg Rivaroxaban (Xarelto -) 20 mg PO [facility] Last Admin: 07/09/16 21:16 Dose: 20 mg Fluticasone/Salmeterol (Advair 100mcg/50mcg -) 1 puff IH BID [facility] Last Admin: 07/10/16 09:20 Dose: Not Given - Objective Vital Signs: Vital Signs Temperature 98.1 F 07/10/16 08:14 Pulse Rate 121 H 07/10/16 09:19 Respiratory Rate 22 07/10/16 08:14 Blood Pressure 125/96 07/10/16 08:14 O2 Sat by Pulse Oximetry (%) 95 07/09/16 12:17 Constitutional: Yes: Well Nourished, Calm Eyes: Yes: WNL HENT: Yes: WNL Neck: Yes: Supple Cardiovascular: Yes: Pulse Irregular, S1, S2 Respiratory: Yes: Rales, Rhonchi, Wheezes (BILATERAL WHEEZES AND RHONCHI) Gastrointestinal: Yes: Normal Bowel Sounds, Soft Extremities: Yes: WNL Edema: Yes Labs: CBC, BMP 07/10/16 06:00 07/10/16 06:00 INR, PTT INR 1.27 (0.82-1.09) H 07/08/16 03:50 Assessment/Plan Problem List - Problems (1) Rapid atrial fibrillation Code(s): I48.91 - UNSPECIFIED ATRIAL FIBRILLATION (2) Chest pain Code(s): R07.9 - CHEST PAIN, UNSPECIFIED Qualifiers: Chest pain type: other chest pain Qualified Code(s): R07.89 - Other chest pain; R07.8 - Other chest pain (3) COPD (chronic obstructive pulmonary disease) Code(s): J44.9 - CHRONIC OBSTRUCTIVE PULMONARY DISEASE, UNSPECIFIED (4) H/O: lung cancer Code(s): Z85.118 - PERSONAL HISTORY OF MALIGNANT NEOPLASM OF BRONCHUS AND LUNG (5) Hypertension Code(s): I10 - ESSENTIAL (PRIMARY) HYPERTENSION (6) Opiate use Code(s): F11.90 - OPIOID USE, UNSPECIFIED, UNCOMPLICATED (7) Thyroid nodule Code(s): E04.1 - NONTOXIC SINGLE THYROID NODULE (8) COPD (chronic obstructive pulmonary disease) with emphysema Code(s): J43.9 - EMPHYSEMA, UNSPECIFIED Assessment/Plan RATE CONTROL CONTINUE A/C O2 SUPPLEMENTATION BRONCHODILATORS ANALGESIA FOR ACUTE LEFT RIB FX'S SMOKING CESSATION/TAPER STEROIDS ANTIBIOTICS CHEST CT SOLUMEDROL WILL INCREASE TO Q6H DR LOWE
[2016-07-10] MEDS: ALBUTEROL SO4 2.5/IPRATROPIUM 0.5 INH SOL 3 ML VIAL.NEB. NEB SCH ×4 (11:25→23:20)
--- NOTE | 2016-07-10 13:10 | PN ---
Progress Note (short form) - Note Progress Note: Chief Complaint: sob/afib S: still with sob, cough. no cp, palps, dizziness. + pain at left ankle injury. Current Medications Acetaminophen (Tylenol -) 650 mg PO Q6H PRN PRN Reason: FEVER OR PAIN Last Admin: 07/09/16 21:18 Dose: 650 mg Albuterol/Ipratropium (Duoneb -) 1 amp NEB Q6H PRN PRN Reason: SHORTNESS OF BREATH Albuterol/Ipratropium (Duoneb -) 1 amp NEB QIDR [facility] Last Admin: 07/10/16 11:25 Dose: 1 amp Clonazepam (Klonopin -) 1 mg PO BID [facility] Last Admin: 07/10/16 09:20 Dose: 1 mg Digoxin (Lanoxin -) 0.125 mg PO DAILY [facility] Last Admin: 07/10/16 09:19 Dose: 0.125 mg Diltiazem HCl (Cardizem Injection -) 5 mg IVPUSH Q4H PRN PRN Reason: TACHYCARDIA Last Admin: 07/09/16 08:22 Dose: 5 mg Diltiazem HCl (Cardizem -) 60 mg PO QID [facility] Last Admin: 07/10/16 09:20 Dose: 60 mg Docusate Sodium (Colace -) 100 mg PO TID [facility] Last Admin: 07/10/16 06:48 Dose: 100 mg Gabapentin (Neurontin -) 300 mg PO TID [facility] Last Admin: 07/10/16 06:48 Dose: 300 mg Pantoprazole Sodium (Protonix 40mg Ivpb (Pre-Docked)) 100 mls @ 200 mls/hr IVPB DAILY [facility] Last Admin: 07/10/16 09:19 Dose: 200 mls/hr Levetiracetam (Keppra -) 500 mg PO BID [facility] Last Admin: 07/10/16 09:19 Dose: 500 mg Lidocaine (Lidoderm Patch -) 1 patch TP DAILY [facility] Last Admin: 07/10/16 09:17 Dose: 1 patch Methadone HCl 40 mg/ Methadone (HCl 20 mg/ Methadone HCl 5 mg) 65 mg PO DAILY@ 0600 [facility] Last Admin: 07/10/16 06:48 Dose: 65 mg Methylprednisolone Sodium Succinate (Solu-Medrol -) 40 mg IVPB Q6H-IV [facility] Nicotine (Nicoderm Patch -) 21 mg TD DAILY PRN PRN Reason: NICOTINE REPLACEMENT RX Last Admin: 07/09/16 08:31 Dose: 21 mg Ondansetron HCl (Zofran Injection) 4 mg IVPB Q4H PRN PRN Reason: NAUSEA AND/OR VOMITING Quetiapine Fumarate (Seroquel -) 300 mg PO [facility] Last Admin: 07/09/16 21:16 Dose: 300 mg Quetiapine Fumarate (Seroquel -) 25 mg PO DAILY PRN PRN Reason: ANXIETY Last Admin: 07/09/16 12:44 Dose: 25 mg Rivaroxaban (Xarelto -) 20 mg PO [facility] Last Admin: 07/09/16 21:16 Dose: 20 mg Fluticasone/Salmeterol (Advair 100mcg/50mcg -) 1 puff IH BID [facility] Last Admin: 07/10/16 09:20 Dose: Not Given Vital Signs - 24 hr 07/09/16 07/09/16 07/09/16 14:17 17:00 21:00 Temperature 97.9 F 97.7 F 97.6 F Pulse Rate 132 H 120 H 103 H Respiratory 20 20 22 Rate Blood Pressure 116/91 111/79 119/74 O2 Sat by Pulse Oximetry (%) 07/10/16 07/10/16 07/10/16 06:00 08:00 08:14 Temperature 97.8 F 98.1 F Pulse Rate 112 H 120 H Respiratory 20 20 22 Rate Blood Pressure 103/62 125/96 O2 Sat by Pulse 92 L Oximetry (%) 07/10/16 09:19 Temperature Pulse Rate 121 H Respiratory Rate Blood Pressure O2 Sat by Pulse Oximetry (%) Intake & Output 07/08/16 07/09/16 07/10/16 07/11/16 07:59 07:59 07:59 07:59 Intake Total 200 650 Output Total 1100 Balance -900 650 Weight 170 lb 196 lb 12.8 oz 198 lb 6 oz Constitutional: Yes: No Distress, Obese, sleepy Eyes: No: Sclera Icterus HENT: No: Nasal Congestion Neck: No: Decreased ROM Respiratory: Yes: Rhonchi, Wheezes (diffuse). No: Accessory Muscle Use, Rales Gastrointestinal: Yes: Normal Bowel Sounds. No: Distention, Hepatomegaly, Palpable Mass, Tenderness Cardiovascular: Yes: Pulse Irregular JVD: No Carotid Bruit: No PMI: Non-Displaced Heart Sounds: Yes: S1, S2. No: Gallop Murmur: No: Systolic Murmur, Diastolic Murmur Musculoskeletal: Yes: Other (No kyphosis) Extremities: No: Cold, Cyanosis Edema: trace Peripheral Pulses: 2+ Left Carotid, 2+ Right Carotid, 2+ Left Doralis Pedis, 2+ Right Dorsalis Pedis Integumentary: No: Jaundice Neurological: Yes: Alert, Oriented (x3) Psychiatric: No: Agitated - Other Data Labs, Other Data: CBC, BMP 07/10/16 06:00 07/10/16 06:00 Laboratory Tests 07/08/16 07/09/16 07/10/16 09:50 05:35 06:00 Creatinine 1.4 H Albumin 3.4 TSH 0.30 L D ekg 07/08: afib 143 bpm; nl axis; no path q's; no ST-T changes tele: afib with rates around 120s Imaging - Results Chest X-ray: Report Reviewed, Image Reviewed Assessment/Plan mibi 2012: no ischemia Echo here: nl lv/rv. 1+ lae. mild-mod mac, 1+ mr/tr Echo 12/2015: nl LVSF; nl RV; mild MR/TR; RVSP 30-40 a/p: 66 f smoker with hx pafib, hx pe/dvt, seizures and frequent falls with injury, copd, htn, anxiety, smoking, lung ca s/p resection 2012, RA, adrenal adenoma, h/o hep c, heroin use on methadone, [place] disaese, who presents with sob/afib atrial fibrillation -last saw lydia in office 2013: sinus resting HR 54, ongoing palpitations ( not all correlated with afib on prior monitor per his notes), could not incr AVN blockers further -here 2014 for rash with rapid HRs then, despite home regimen toprol 25 bid and dig 125 qod -digoxin incr'd to daily at that time with adequate HR control on tele at time of hospital discharge -current home meds list reports toprol 50 qd without dig -HR 143 initially in ER -her afib clearly does not respond to max tolerated toprol -modest response to diltiazem 20 ivp 07/09 but dropped bp to 90s -pt does not seem to feel her afib as she denies any palpitations here or at home on DOA -will try diltiazem plus digoxin for HR control -HRs may improve as sob/cough improves -if rapid AF tx is complicated by sinus shazia (i.e. SSS), need to consider rhythm control (flecainide vs ablation), though she previously deferred ablation with dr freeman -Dr. Hollis spoke with pmd dr gayle gonzalez --> she is frequently noncompliant although has been there mult times since 11/17 (including 04/20 and 06/18). no ekg 's done but each of those times her HR was 70s-80s. given she has always been rapid when in afib here in past, she was extremely likely in sinus as recently as 06/18. (has not seen cardio since lydia 2013) -CHADS VASC 2--has been maintained on AC (xarelto at home), states she has not missed a single dose. stopped asa. - 07/10 still with rapid rates will uptitrate dilt to 90 QID. con't digoxin. mgm't of pain and thyroid abnormalities per pmd and underlying pulm disease per pulm. In regards to AC --> patient endorsing recent frequent seizures, frequent falls. Noted to have both acute and old rib fractures on admission xrays. Also endorses recent ankle injury from fall. Per report and discussion with hospitalist, patient is also frequently non-compliant. Would recommend discussions with neuro and pmd regarding fall risk and risk/benefit of AC in this setting (note patient also on AC for h/o PE, unknown if provoked or unprovoked). sob, acute diastolic CHF -prior dry weights 179-180 when hospitalized here 2014 and 12/2015 -current wt 196, ? timing of this trend -has constant sob/wheezing from copd per pt--? worsening at home 1-2 wks ago due to chf (also new pedal edema then) -ER cxr reviewed by me: incr'd interstitial marking vs prior ? interstitial pulm edema pattern (perihilar predominance noted), probable vascular redistribution (no effusions) -BNP 6K, from 900 baseline -not currently sob at rest -bun/creat up today s/p lasix 20 ivp yesterday -give test dose lasix 40 ivp x1 today--reassess wts, sob sx's, and lab trend in am -further lasix recs to come 07/10 depending on clinical findings -at risk for tachy-CMP from review of prior notes-- repeat echo with nl lv function. - 07/10: Cr improved s/p lasix 40 mg IV x 1 yesterday. CXR report read as clear, but by my review still with possible vascular congestion. Also with mild edema on exam ? new from diltiazem or from volume retention. Weight increasing on IV steroids -> Will repeat IV lasix dose today. Reassess volume status in am. Likely only small contribution to sob. --> Ongoing treatment of pulmonary disease per pulm/pmd. 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 Ongoing mgm't per pulm/pmd h/o PE: -? details of provoked vs unprovoked, results of hypercoag w/u -on xarelto. See discussion above. HTN: -controlled -cont same meds h/o heroin abuse: -on methadone maintenance
--- NOTE | 2016-07-10 14:23 | PN ---
Teaching Attending Note Name of Resident: Alisha Grossman ATTENDING PHYSICIAN STATEMENT I saw and evaluated the patient. I reviewed the resident's note and discussed the case with the resident. I agree with the resident's findings and plan as documented. SUBJECTIVE: no fever or chills, cont to have L sided cp . has no cough . reports SOB to be at base line OBJECTIVE: NAD , awake ,alert and oriented x 3. MMM. CV: irreg irreg , tachy . Lungs: Generalized wheezes, rales at bases of lungs , significantly prolonged experatory phase EXt: 1+ pitting edema R>L ASSESSMENT AND PLAN: 66 y/o lady with h/o [employer], RA, Lung ca with local recurrence , benign adrenal mass, a-fib, hypotension, hep. C, thyriod nodules, who presented with worsening SOB x 1 week, wheezing , fever and increased sputum production. She was found to have acute COPD exa, with Afib in RVR. 1- Acute hypoxic resp failure , likely due to COPD exacerbation with component of pulm edema in setting of rapid A fib . - IV steroids - Duo-Nebs QID and PRN - BIpap at night - cont lasix - cont advair - ceftriaxone day / . no evidence of PNA 2- Acute diastolic heart failure , due to Afib with RVR -cont lasix 40 daily - echo with preserved EF 3- A fib with RVR. on tele , last night rate around 100, but it increased to 110s-120s this am . - cont dig , and cardizem ( started here ) - off toprol ( home meds ) due to low normal BP - dig level tomorrow - cont xarelto 4- L sided rib Fx : -lidocaine pacth - on methadone , will not give additional narcotics, as she looks comfortable 5- h/o Seizure , reports having multiple seizures last month . I don't think pt is compliant with her keppra , as she id not pick her keppra since 06/07 . cont Keppra . will try to get 4-day EEG report from her neurologist D/W Dr. Ferrara last night 6- h/o heroin abuse - cont methadone 7- Hyperthryroidism: which is contributing to rapid A fib. Grave's disease vs a hot nodule - will check thyroid US - will consider starting methimazole 8- DVT px : on xarelto Dispo: HLOC
[2016-07-10] MEDS: FUROSEMIDE 40 MG/4 ML INJECTABLE VIAL IVPUSH SCH (14:30)
[2016-07-10] MEDS: QUEtiapine FUMARATE 25 MG TABLET (FP) PO PRN (16:13)
[2016-07-10] MEDS: RIVAROXABAN 20 MG TABLET PO SCH (21:43)
[2016-07-10] MEDS: QUEtiapine FUMARATE 50 MG TABLET PO SCH (21:44)
[2016-07-11] MEDS: methylPREDNISolone NA SUCC 40 MG/1 ML VIAL IVPB SCH ×4 (02:44→21:56)
[2016-07-11] MEDS ORDERED: METHADONE HCL 40 MG DISPERSABLE TABLET ONE (05:56)
[2016-07-11] MEDS ORDERED: METHADONE HCL 10 MG TABLET ONE (05:56)
[2016-07-11] MEDS ORDERED: METHADONE HCL 5 MG TABLET ONE (05:57)
[2016-07-11] MEDS: METHADONE 40 MG, METHADONE 20 MG, METHADONE 5 MG PO SCH (05:58)
[2016-07-11] MEDS: DOCUSATE SODIUM 100 MG CAPSULE (FP) PO SCH ×3 (05:58→21:54)
[2016-07-11] MEDS: GABAPENTIN 300 MG CAPSULE (FP) PO SCH ×3 (05:59→21:55)
[2016-07-11] MEDS: ALBUTEROL SO4 2.5/IPRATROPIUM 0.5 INH SOL 3 ML VIAL.NEB. NEB SCH ×3 (06:25→17:10)
[2016-07-11 07:02] LABS: MCH 31.2 pg (25.7-33.7); MCHC 32.8 g/dl (32.0-36.0); MEAN PLT VOLUME 9.2 fl (7.5-11.1); PLATELET COUNT 199 K/MM3 (134-434); RDW 14.4 % (11.6-15.6)
--- NOTE | 2016-07-11 07:40 | PN ---
Teaching Attending Note Name of Resident: Alisha Grossman ATTENDING PHYSICIAN STATEMENT I saw and evaluated the patient. I reviewed the resident's note and discussed the case with the resident. I agree with the resident's findings and plan as documented. SUBJECTIVE: Patient is short of breath, dyspnea on exertion. On Oxygen. Desaturates off oxygen. OBJECTIVE: Vital Signs Temperature 97.5 F L 07/11/16 06:00 Pulse Rate 103 H 07/11/16 06:00 Respiratory Rate 20 07/11/16 06:00 Blood Pressure 143/82 07/11/16 06:00 O2 Sat by Pulse Oximetry (%) 96 07/10/16 21:00 CBCD WBC 15.5 K/mm3 (4.0-10.0) H 07/10/16 06:00 RBC 4.22 M/mm3 (3.60-5.2) 07/10/16 06:00 Hgb 13.2 GM/dL (10.7-15.3) 07/10/16 06:00 Hct 40.0 % (32.4-45.2) 07/10/16 06:00 MCV 94.9 fl (80-96) 07/10/16 06:00 MCHC 33.0 g/dl (32.0-36.0) 07/10/16 06:00 RDW 13.8 % (11.6-15.6) 07/10/16 06:00 Plt Count 196 K/MM3 (134-434) 07/10/16 06:00 MPV 9.3 fl (7.5-11.1) 07/10/16 06:00 CMP Sodium 138 mmol/L (136-145) 07/10/16 06:00 Potassium 4.4 mmol/L (3.5-5.1) 07/10/16 06:00 Chloride 101 mmol/L (98-107) 07/10/16 06:00 Carbon Dioxide 24 mmol/L (21-32) 07/10/16 06:00 Anion Gap 13 (8-16) 07/10/16 06:00 BUN 36 mg/dL (7-18) H 07/10/16 06:00 Creatinine 1.1 mg/dL (0.55-1.02) H D 07/10/16 06:00 Creat Clearance w eGFR 50.01 (>60) 07/10/16 06:00 Random Glucose 146 mg/dL (74-106) H 07/10/16 06:00 Calcium 8.4 mg/dL (8.5-10.1) L 07/10/16 06:00 Total Bilirubin 0.3 mg/dL (0.2-1.0) D 07/10/16 06:00 AST 21 U/L (15-37) 07/10/16 06:00 ALT 35 U/L (12-78) 07/10/16 06:00 Alkaline Phosphatase 80 U/L (45-117) 07/10/16 06:00 Total Protein 8.3 g/dl (6.4-8.2) H 07/10/16 06:00 Albumin 3.4 g/dl (3.4-5.0) 07/10/16 06:00 CARDIAC ENZYMES Creatine Kinase 439 IU/L (26-192) H 07/08/16 03:50 Troponin I < 0.02 ng/ml (0.00-0.05) 07/08/16 18:31 Current Medications Generic Name Dose Route Start Last Admin Trade Name Freq PRN Reason Stop Dose Admin Acetaminophen 650 mg 07/08/16 06:03 07/09/16 21:18 Tylenol - PO 650 mg Q6H PRN Administration FEVER OR PAIN Albuterol/Ipratropium 1 amp 07/08/16 06:07 Duoneb - NEB Q6H PRN SHORTNESS OF BREATH Albuterol/Ipratropium 1 amp 07/08/16 12:00 07/11/16 06:25 Duoneb - NEB 1 amp QIDR LORRIE Administration Clonazepam 1 mg 07/08/16 10:00 07/10/16 21:42 Klonopin - PO 1 mg BID LORRIE Administration Digoxin 0.125 mg 07/09/16 11:45 07/10/16 09:19 Lanoxin - PO 0.125 mg DAILY LORRIE Administration Diltiazem HCl 5 mg 07/09/16 00:01 07/09/16 08:22 Cardizem Injection - IVPUSH 5 mg Q4H PRN Administration TACHYCARDIA Diltiazem HCl 90 mg 07/10/16 13:12 07/10/16 21:43 Cardizem - PO 90 mg QID LORRIE Administration Docusate Sodium 100 mg 07/08/16 14:00 07/11/16 05:58 Colace - PO 100 mg TID LORRIE Administration Furosemide 40 mg 07/10/16 13:15 07/10/16 14:30 Lasix Injection - IVPUSH 40 mg DAILY LORRIE Administration Gabapentin 300 mg 07/08/16 14:00 07/11/16 05:59 Neurontin - PO 300 mg TID LORRIE Administration Levetiracetam 500 mg 07/08/16 10:00 07/10/16 21:43 Keppra - PO 500 mg BID LORRIE Administration Lidocaine 1 patch 07/09/16 10:00 07/10/16 09:17 Lidoderm Patch - TP 1 patch DAILY LORRIE Administration Methadone HCl 40 mg/ Methadone 65 mg 07/09/16 08:30 07/11/16 05:58 HCl 20 mg/ Methadone HCl 5 mg PO 65 mg DAILY@0600 LORRIE Administration Methylprednisolone Sodium Succinate 40 mg 07/10/16 15:00 07/11/16 02:44 Solu-Medrol - IVPB 40 mg Q6H-IV LORRIE Administration Nicotine 21 mg 07/08/16 10:00 07/09/16 08:31 Nicoderm Patch - TD 21 mg DAILY PRN Administration NICOTINE REPLACEMENT RX Ondansetron HCl 4 mg 07/08/16 06:03 Zofran Injection IVPB Q4H PRN NAUSEA AND/OR VOMITING Pantoprazole Sodium 40 mg 07/11/16 10:00 Protonix - PO DAILY LORRIE Quetiapine Fumarate 300 mg 07/08/16 22:00 07/10/16 21:44 Seroquel - PO 300 mg HS LORRIE Administration Quetiapine Fumarate 25 mg 07/08/16 09:35 07/10/16 16:13 Seroquel - PO 25 mg DAILY PRN Administration ANXIETY Rivaroxaban 20 mg 07/08/16 22:00 07/10/16 21:43 Xarelto - PO 20 mg HS LORRIE Administration Fluticasone/Salmeterol 1 puff 07/08/16 10:00 07/10/16 21:46 Advair 100mcg/50mcg - IH 1 puff BID LORRIE Administration Home Medications Medication Instructions Recorded Clonazepam [KlonoPIN -] 1 mg PO BID 10/19/14 Methadone [Dolophine -] 65 mg PO DAILY 10/19/14 Tiotropium [place] [Spiriva] 1 inh PO BID 10/19/14 Quetiapine Fumarate [Seroquel -] 300 mg PO HS 02/05/15 Aspirin Coated [Ecotrin -] 81 mg PO DAILY tablet.ec 09/22/15 Docusate Sodium [Colace -] 100 mg PO TID capsule 09/22/15 Albuterol Sulfate Inhaler - 2 inh PO Q4H PRN 12/08/15 [Ventolin HFA Inhaler -] Nicotine Patch [Nicoderm Patch -] 1 patch TD DAILY PRN 12/08/15 Rivaroxaban [Xarelto -] 20 mg PO DAILY 12/10/15 Fluticasone/Salmeterol [Advair 1 puff IN BID 07/08/16 250-50 Diskus] Furosemide [Lasix] 20 mg PO DAILY 07/08/16 Gabapentin [Neurontin] 300 mg PO TID 07/08/16 Levetiracetam [Keppra -] 500 mg PO BID 07/08/16 Metoprolol Succinate [Toprol Xl] 50 mg PO DAILY 07/08/16 Quetiapine Fumarate [Seroquel -] 25 mg PO DAILY PRN 07/08/16 ASSESSMENT AND PLAN: 66 y/o lady with 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 C, thyroid nodules, who presented with worsening SOB x 1 week, wheezing , fever and increased sputum production. She was found to have acute COPD exacerbation, with Afib in RVR. # Acute hypoxic respiratory failure due to COPD exacerbation/diastolic heart failure/ rapid A fib . On IV steroids continue , Duo-Nebs QID and PRN - Bipap at night as needed , on IV lasix , advair . completed 3 day course of IV ceftriaxone day 3/3 (no evidence of PNA) Pulmonary consult appreciated. # Acute diastolic heart failure , due to Afib with RVR : on IV lasix 40 daily , echo reviewed with preserved EF # A fib with RVR. on xarelto( started as an outpatient) with a rate of 103 this morning; on digoxin and cardizem ( started here ) for rate control. - off toprol ( home meds ) due to low normal BP, check dig level, continue telemetry monitoring #Hx of Hyperthryroidism as per patient: possible that's contributing to her rapid A fib. we don't have the w/u fro er physicaians, will try to get them from her PMD. Possible Grave's disease/Nodule will repeat TSH,FT4,Ft3 , for consult for further w/u # L sided rib Fx : on lidocaine patch for pain ; on methadone program will not give additional narcotics, as she looks comfortable and will affect her breathing #H/o Seizure , reports having multiple seizures last month . 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 will cont her Keppra ;will try to get 4-day EEG report from her neurologist if possible since she had done it as an outpatient. #Hx of heroin abuse on methadone program # DVT px : on xarelto
[2016-07-11] MEDS ORDERED: PT OWN MED DRAWER 7, Y5N ONE ×4 (08:18→13:54)
[2016-07-11 08:27] LABS: ALBUMIN 3.3 g/dl (3.4-5.0); BILIRUBIN,TOTAL 0.3 mg/dL (0.2-1.0); CALCIUM 8.1 mg/dL (8.5-10.1); COCKROFT - GAULT 67.269; CREATININE 1.2 mg/dL (0.55-1.02); MAGNESIUM 2.8 mg/dL (1.8-2.4); TOT PROT 8.3 g/dl (6.4-8.2)
[2016-07-11] MEDS: FUROSEMIDE 40 MG/4 ML INJECTABLE VIAL IVPUSH SCH ×2 (08:38→09:09)
[2016-07-11] MEDS: levETIRAcetam 500 MG TABLET (FP) PO SCH ×3 (08:38→21:55)
[2016-07-11] MEDS: PANTOPRAZOLE 40 MG TABLET (FP) PO SCH ×2 (08:38→09:09)
[2016-07-11] MEDS: dilTIAZem HCL 60 MG TABLET (FP) PO SCH ×5 (08:39→21:54)
[2016-07-11] MEDS: DIGOXIN 0.125 MG TABLET (FP) PO SCH ×2 (08:40→09:09)
[2016-07-11] MEDS: LIDOCAINE 5% TOPICAL PATCH TP SCH ×2 (08:41→09:09)
[2016-07-11] MEDS: FLUTICASONE/SALMETEROL 100 MCG/50 MCG DISKUS IH SCH ×2 (09:08→21:56)
[2016-07-11] MEDS: clonazePAM 0.5 MG TABLET PO SCH ×2 (09:09→21:55)
[2016-07-11] MEDS: ALBUTEROL SO4 2.5/IPRATROPIUM 0.5 INH SOL 3 ML VIAL.NEB. NEB PRN (09:10)
[2016-07-11 09:41] LABS: DIGOXIN LEVEL 0.3524 ng/ml (0.8-2.0)
--- NOTE | 2016-07-11 10:08 | PN ---
Physical Exam: SUBJECTIVE: Patient seen and examined this morning. Patient mentions that her breathing has improved. She didn't use Bipap overnight. Denies cough, palpitation, abdominal pain, nausea or vomiting. Bowel/ Bladder habit normal. Sleep/Appetite normal. As per the RN, HR went up to 150's but was controlled with IV Cardizem 5mg push. RN also mentioned that patient left the floor this morning to get a cup of coffee from the cafe and told the nurse she will do this frequently. Despite explaining to her to avoid coffee, she takes it 2-3 cups daily which may worsen the tremors. Was able to contact patient's PCP's office (Dr. Winifred Landaverde [phone]) and will be getting all the medical records faxed in few hours. Incident report: Patient showed the RN how to use the vapour cigarettes this morning. RN told her not to use the vapour cigs in the hospital because of fire hazards. Patient then wanted to sign out AMA. Went to speak with the patient and she agreed to stay and follow hospital rules. Patient verbalized understanding. OBJECTIVE: Vital Signs Period Temp Pulse Resp BP Sys/Smyth Pulse Ox Last 24 Hr 97.4 F-98.6 F 90-146 20-20 115-161/63-91 96-97 GENERAL: The patient is obese, sitting comfortably in bed, awake, alert, and fully oriented, in no acute distress, nasal canula in place. HEAD: Normal with no signs of trauma. EYES: EOM intact, no pallor or icterus. ENT: Ears normal moist mucous membranes. NECK: Trachea midline, full range of motion, supple. Thyroid fullness, couldn't appreciate the thyroid nodules. LUNGS: Tenderness under the left breast, Breath sounds equal, scattered rhonchi bilaterally, no wheezes, no crackles, no accessory muscle use. HEART: Irregularly irregular rate and rhythm, S1, S2 without murmur, rub or gallop. ABDOMEN: Soft, nontender, nondistended, normoactive bowel sounds, no guarding, no rebound, no hepatosplenomegaly, no masses. EXTREMITIES: 2+ pulses, warm, well-perfused,trace pedal edema. Tenderness on palpation over the right great toe. NEUROLOGICAL: Cranial nerves II through XII grossly intact. Normal speech, gait not observed. PSYCH: Normal mood, normal affect. SKIN: Warm, dry, normal turgor, no rashes or lesions noted Laboratory Results - last 24 hr 07/11/16 07/11/16 07/11/16 05:35 05:35 06:00 WBC 11.0 H RBC 4.50 Hgb 14.0 Hct 42.7 MCV 95.0 MCHC 32.8 RDW 14.4 Plt Count 199 MPV 9.2 Sodium 138 Potassium 3.7 Chloride 101 Carbon Dioxide 25 Anion Gap 12 BUN 31 H Creatinine 1.2 H Creat Clearance w eGFR 45.23 Random Glucose 198 H D Calcium 8.1 L Magnesium 2.8 H Total Bilirubin 0.3 AST 13 L D ALT 33 Alkaline Phosphatase 79 Total Protein 8.3 H Albumin 3.3 L Digoxin 0.3524 L Cancelled Active Medications Generic Name Dose Route Start Last Admin Trade Name Freq PRN Reason Stop Dose Admin Acetaminophen 650 mg 07/08/16 06:03 07/09/16 21:18 Tylenol - PO 650 mg Q6H PRN Administration FEVER OR PAIN Albuterol/Ipratropium 1 amp 07/08/16 06:07 07/11/16 09:10 Duoneb - NEB 1 amp Q6H PRN Administration SHORTNESS OF BREATH Albuterol/Ipratropium 1 amp 07/08/16 12:00 07/11/16 06:25 Duoneb - NEB 1 amp QIDR LORRIE Administration Clonazepam 1 mg 07/08/16 10:00 07/11/16 09:09 Klonopin - PO 1 mg BID LORRIE Administration Digoxin 0.125 mg 07/09/16 11:45 07/11/16 09:09 Lanoxin - PO Not Given DAILY LORRIE Diltiazem HCl 5 mg 07/09/16 00:01 07/09/16 08:22 Cardizem Injection - IVPUSH 5 mg Q4H PRN Administration TACHYCARDIA Diltiazem HCl 90 mg 07/10/16 13:12 07/11/16 09:09 Cardizem - PO Not Given QID LORRIE Docusate Sodium 100 mg 07/08/16 14:00 07/11/16 05:58 Colace - PO 100 mg TID LORRIE Administration Furosemide 40 mg 07/10/16 13:15 07/11/16 09:09 Lasix Injection - IVPUSH Not Given DAILY LORRIE Gabapentin 300 mg 07/08/16 14:00 07/11/16 05:59 Neurontin - PO 300 mg TID LORRIE Administration Levetiracetam 500 mg 07/08/16 10:00 07/11/16 09:09 Keppra - PO Not Given BID LORRIE Lidocaine 1 patch 07/09/16 10:00 07/11/16 09:09 Lidoderm Patch - TP Not Given DAILY LORRIE Methadone HCl 40 mg/ Methadone 65 mg 07/09/16 08:30 07/11/16 05:58 HCl 20 mg/ Methadone HCl 5 mg PO 65 mg DAILY@0600 LORRIE Administration Methylprednisolone Sodium Succinate 40 mg 07/10/16 15:00 07/11/16 08:38 Solu-Medrol - IVPB 40 mg Q6H-IV LORRIE Administration Nicotine 21 mg 07/08/16 10:00 07/09/16 08:31 Nicoderm Patch - TD 21 mg DAILY PRN Administration NICOTINE REPLACEMENT RX Ondansetron HCl 4 mg 07/08/16 06:03 Zofran Injection IVPB Q4H PRN NAUSEA AND/OR VOMITING Pantoprazole Sodium 40 mg 07/11/16 10:00 07/11/16 09:09 Protonix - PO Not Given DAILY LORRIE Propranolol HCl 120 mg 07/11/16 10:15 Inderal La - PO DAILY LORRIE Quetiapine Fumarate 300 mg 07/08/16 22:00 07/10/16 21:44 Seroquel - PO 300 mg HS LORRIE Administration Quetiapine Fumarate 25 mg 07/08/16 09:35 07/10/16 16:13 Seroquel - PO 25 mg DAILY PRN Administration ANXIETY Rivaroxaban 20 mg 07/08/16 22:00 07/10/16 21:43 Xarelto - PO 20 mg HS LORRIE Administration Fluticasone/Salmeterol 1 puff 07/08/16 10:00 07/11/16 09:08 Advair 100mcg/50mcg - IH 1 puff BID LORRIE Administration ASSESSMENT/PLAN: Patient is a 65 year old lady with h/o COPD, RA, Lung ca with local reoccurance , benign adrenal mass, a-fib, DVT, hypotension, hep. C, thyriod nodules, PVD, HTN who BIB EMS with SOB. # Acute hypoxic respiratory failure-Improving Patient presented with SOB Rule out PNA COPD and CHF CXR : Left rib fracture. No evidence of pneumonia. ABG- PH 7.3, CO2 47, O2 70 BNP 6000s Placed on BIPAP overnight but patient doesn't use it. Start Duonebs, supp O2, IV Steroids 40mg BID Continue home Lasix IV 40 Daily Patient was getting IV Ceftriaxone which was stopped at Day 3 as there are no signs of infection or pnuemonia. # AFIB w RVR - Not rate controlled with acute diastolic heart failure- Given 70mg IV Diltiazem in ER On IV Diltiazem 5mg IV PRN Continue Rivaroxaban 20mg- since patient has a h/o frequent falls, risk of incracranial bleed is high. Hence ordered CT scan of head without contrast. As per cardiology, plan is ? Flecainide vs ablation if rate in not controlled. Continuous Cardiac monitoring Cardiology consult appreciated. Daily Weights I's and O's # HTN Metoprolol stopped and started on Digoxin. Digoxin level pending. # Left sided Rib pain S/P fall Rib fracture on cx ray Pain control -on Methadone and has lidocaine patch so will not give additional narcotics. # Hx of heroin abuse On Methadone 65mg Daily (dose confirmed) # Hx of Seizures Last seizure was 2 weeks ago despite being on keppra 500mg BID No seizure activity noted this admission. Confirmed that patient is non compliant with medication. Neurology consult appreciated Fall precautions CT head ordered to r/o any mass, intracranial bleed. Patient recently had an EEG done. Will get records from the PCP's office today. Physical therapy requested # Tremors of extremities likely metabolic vs infectious induced vs less likely Essential Tremor vs Hyperthyroidism # Thyroid nodules Patient mentions that she has gained weight since last year. She did have thyroid ultrasound as outpatient but hasn't had any biopsy. Hasn't seen [facility] since years. Free T4, T3 and TSH ordered, labs pending. Started her on Propanolol 120mg Daily. (Discussed with Dr. Chung and Dr. Encarnacion) Endocrinology consult appreciated Would consider thyroid ultrasound as outpatient. # PVD Continue ASA # H/o anxiety cont seroquel . 300 HS and 25 q AM PRN # Prophylaxis For DVT: on rivaroxaban For GI: not indicated # FEN Not on IV fluids Electrolytes to be repeated in am Low salt diet # Code Status: Full Code # Dispo- Admitted in Tele. Duration of stay unknown. Illness, Investigation and Plan of care explained to the patient. She verbalized understanding. Case seen and discussed with Dr. Encarnacion. Visit type - Emergency Visit Emergency Visit: Yes ED Registration Date: 07/08/16 Care time: The patient presented to the Emergency Department on the above date and was hospitalized for further evaluation of their emergent condition. - New Patient This patient is new to me today: No - Critical Care Critical Care patient: No
--- NOTE | 2016-07-11 10:40 | PN ---
Progress Note (short form) - Note Progress Note: Chief Complaint: sob/afib S: still with sob, cough. no cp, palps, dizziness. + pain at left ankle injury. still with RVR. +smoker Current Medications Generic Name Dose Route Start Last Admin Trade Name Freq PRN Reason Stop Dose Admin Acetaminophen 650 mg 07/08/16 06:03 07/09/16 21:18 Tylenol - PO 650 mg Q6H PRN Administration FEVER OR PAIN Albuterol/Ipratropium 1 amp 07/08/16 06:07 07/11/16 09:10 Duoneb - NEB 1 amp Q6H PRN Administration SHORTNESS OF BREATH Albuterol/Ipratropium 1 amp 07/08/16 12:00 07/11/16 06:25 Duoneb - NEB 1 amp QIDR [facility] Administration Clonazepam 1 mg 07/08/16 10:00 07/11/16 09:09 Klonopin - PO 1 mg BID [facility] Administration Digoxin 0.125 mg 07/09/16 11:45 07/11/16 09:09 Lanoxin - PO Not Given DAILY [facility] Diltiazem HCl 5 mg 07/09/16 00:01 07/09/16 08:22 Cardizem Injection - IVPUSH 5 mg Q4H PRN Administration TACHYCARDIA Diltiazem HCl 90 mg 07/10/16 13:12 07/11/16 09:09 Cardizem - PO Not Given QID [facility] Docusate Sodium 100 mg 07/08/16 14:00 07/11/16 05:58 Colace - PO 100 mg TID [facility] Administration Furosemide 40 mg 07/10/16 13:15 07/11/16 09:09 Lasix Injection - IVPUSH Not Given DAILY [facility] Gabapentin 300 mg 07/08/16 14:00 07/11/16 05:59 Neurontin - PO 300 mg TID [facility] Administration Levetiracetam 500 mg 07/08/16 10:00 07/11/16 09:09 Keppra - PO Not Given BID [facility] Lidocaine 1 patch 07/09/16 10:00 07/11/16 09:09 Lidoderm Patch - TP Not Given DAILY [facility] Methadone HCl 40 mg/ Methadone 65 mg 07/09/16 08:30 07/11/16 05:58 HCl 20 mg/ Methadone HCl 5 mg PO 65 mg DAILY@0600 [facility] Administration Methylprednisolone Sodium Succinate 40 mg 07/10/16 15:00 07/11/16 08:38 Solu-Medrol - IVPB 40 mg Q6H-IV [facility] Administration Nicotine 21 mg 07/08/16 10:00 07/09/16 08:31 Nicoderm Patch - TD 21 mg DAILY PRN Administration NICOTINE REPLACEMENT RX Ondansetron HCl 4 mg 07/08/16 06:03 Zofran Injection IVPB Q4H PRN NAUSEA AND/OR VOMITING Pantoprazole Sodium 40 mg 07/11/16 10:00 07/11/16 09:09 Protonix - PO Not Given DAILY [facility] Propranolol HCl 120 mg 07/11/16 10:15 Inderal La - PO DAILY [facility] Quetiapine Fumarate 300 mg 07/08/16 22:00 07/10/16 21:44 Seroquel - PO 300 mg HS [facility] Administration Quetiapine Fumarate 25 mg 07/08/16 09:35 07/10/16 16:13 Seroquel - PO 25 mg DAILY PRN Administration ANXIETY Rivaroxaban 20 mg 07/08/16 22:00 07/10/16 21:43 Xarelto - PO 20 mg HS [facility] Administration Fluticasone/Salmeterol 1 puff 07/08/16 10:00 07/11/16 09:08 Advair 100mcg/50mcg - IH 1 puff BID [facility] Administration Vital Signs Temp 97.9 F 07/11/16 09:00 Pulse 139 H 07/11/16 09:00 Resp 20 07/11/16 09:00 BP 115/84 07/11/16 09:00 Pulse Ox 97 07/11/16 09:00 Intake & Output 07/10/16 07/10/16 07/11/16 11:59 23:59 11:59 Intake Total 350 1400 1000 Balance 350 1400 1000 Weight 198 lb 6 oz Intake: Oral 350 1400 1000 Other: Voiding Method Toilet Toilet Toilet # Unmeasured Voids Void 2 2 Bowel Movement Yes Yes # Bowel Movements 1 Weight Measurement Method Standing Scale Constitutional: Yes: No Distress, Obese, sleepy Eyes: No: Sclera Icterus HENT: No: Nasal Congestion Neck: No: Decreased ROM Respiratory: Yes: Rhonchi, Wheezes (diffuse), nl eff No: Accessory Muscle Use, Rales Gastrointestinal: Yes: Normal Bowel Sounds. No: Distention, Hepatomegaly, Palpable Mass, Tenderness Cardiovascular: Yes: Pulse Irregular JVD: No Heart Sounds: Yes: irreg, tachy, S1, S2. No: Gallop Murmur: No: Systolic Murmur, Diastolic Murmur Musculoskeletal: Yes: Other (No kyphosis) Extremities: No: Cold, Cyanosis Edema: trace le edema bl Integumentary: No: Jaundice diaphoresis Neurological: Yes: Alert, Oriented (x3) Psychiatric: No: Agitated Laboratory Last Values WBC 11.0 K/mm3 (4.0-10.0) H 07/11/16 05:35 RBC 4.50 M/mm3 (3.60-5.2) 07/11/16 05:35 Hgb 14.0 GM/dL (10.7-15.3) 07/11/16 05:35 Hct 42.7 % (32.4-45.2) 07/11/16 05:35 MCV 95.0 fl (80-96) 07/11/16 05:35 MCHC 32.8 g/dl (32.0-36.0) 07/11/16 05:35 RDW 14.4 % (11.6-15.6) 07/11/16 05:35 Plt Count 199 K/MM3 (134-434) 07/11/16 05:35 MPV 9.2 fl (7.5-11.1) 07/11/16 05:35 Neutrophils % 91.2 % (42.8-82.8) H 07/09/16 05:35 Lymphocytes % 5.4 % (8-40) L 07/09/16 05:35 Monocytes % 2.5 % (3.8-10.2) L D 07/09/16 05:35 Eosinophils % 0.0 % (0-4.5) 07/09/16 05:35 Basophils % 0.9 % (0-2.0) D 07/09/16 05:35 INR 1.27 (0.82-1.09) H 07/08/16 03:50 PTT (Actin FS) 39.5 SECONDS (26.9-34.4) H 07/08/16 03:50 Puncture Site Right radial 07/08/16 06:32 ABG pH 7.33 (7.35-7.45) L 07/08/16 06:32 ABG pCO2 at Pt Temp 47.0 mmHg (35-45) H 07/08/16 06:32 ABG pO2 at Pt Temp 70.4 mmHg (80-100) L 07/08/16 06:32 ABG HCO3 24.1 meq/L (22-26) 07/08/16 06:32 ABG O2 Sat (Measured) 93.2 % (90-98.9) 07/08/16 06:32 ABG O2 Content 17.9 % vol (15-22) 07/08/16 06:32 ABG Base Excess -1.6 meq/l (-2-2) 07/08/16 06:32 Samir Test Positive 07/08/16 06:32 Carboxyhemoglobin 2.2 gm% (0.5-2.0) H 07/08/16 06:32 Methemoglobin 0.4 % (0.4-1.5) 07/08/16 06:32 O2 Delivery Device N/c 07/08/16 06:32 Oxygen Flow Rate 2lpm 07/08/16 06:32 Sodium 138 mmol/L (136-145) 07/11/16 05:35 Potassium 3.7 mmol/L (3.5-5.1) 07/11/16 05:35 Chloride 101 mmol/L (98-107) 07/11/16 05:35 Carbon Dioxide 25 mmol/L (21-32) 07/11/16 05:35 Anion Gap 12 (8-16) 07/11/16 05:35 BUN 31 mg/dL (7-18) H 07/11/16 05:35 Creatinine 1.2 mg/dL (0.55-1.02) H 07/11/16 05:35 Creat Clearance w eGFR 45.23 (>60) 07/11/16 05:35 POC Glucometer 208 UNITS (()) 07/09/16 15:37 Random Glucose 198 mg/dL (74-106) H D 07/11/16 05:35 Calcium 8.1 mg/dL (8.5-10.1) L 07/11/16 05:35 Magnesium 2.8 mg/dL (1.8-2.4) H 07/11/16 05:35 Total Bilirubin 0.3 mg/dL (0.2-1.0) 07/11/16 05:35 AST 13 U/L (15-37) L D 07/11/16 05:35 ALT 33 U/L (12-78) 07/11/16 05:35 Alkaline Phosphatase 79 U/L (45-117) 07/11/16 05:35 Creatine Kinase 439 IU/L (26-192) H 07/08/16 03:50 Creatine Kinase Index 2.0 % (0.0-5.0) 07/08/16 03:50 CK-MB (CK-2) 8.573 ng/ml (0.5-3.6) H 07/08/16 03:50 Troponin I < 0.02 ng/ml (0.00-0.05) 07/08/16 18:31 B-Natriuretic Peptide 6862.07 pg/ml (5-125) H 07/08/16 03:50 Total Protein 8.3 g/dl (6.4-8.2) H 07/11/16 05:35 Albumin 3.3 g/dl (3.4-5.0) L 07/11/16 05:35 TSH 0.30 uIU/ml (0.358-3.74) L D 07/08/16 09:50 Urine Color Ltyellow 07/08/16 12:36 Urine Appearance Clear 07/08/16 12:36 Urine pH 5.0 (5.0-8.0) 07/08/16 12:36 Ur Specific [place] 1.015 (1.005-1.025) 07/08/16 12:36 Urine Protein Negative (NEGATIVE) 07/08/16 12:36 Urine Glucose (UA) Negative (NEGATIVE) 07/08/16 12:36 Urine Ketones Negative (NEGATIVE) 07/08/16 12:36 Urine Blood 2+ (NEGATIVE) H 07/08/16 12:36 Urine Nitrite Negative (NEGATIVE) 07/08/16 12:36 Urine Bilirubin Negative (NEGATIVE) 07/08/16 12:36 Urine Urobilinogen Negative E.U./dl (0.2-1.0) 07/08/16 12:36 Ur Leukocyte Esterase Negative (NEGATIVE) 07/08/16 12:36 Urine RBC 1 /hpf (0-3) 07/08/16 12:36 Urine WBC <1 /hpf (3-5) 07/08/16 12:36 Ur Epithelial Cells Rare /hpf (FEW) 07/08/16 12:36 Hyaline Casts 1 /lpf 07/08/16 12:36 Urine Mucus Rare 07/08/16 12:36 Digoxin Cancelled 07/11/16 06:00 Opiates Screen Negative ng/ml (HDSRLL=109) 07/08/16 19:47 Methadone Screen Positive ng/ml (MYSFSX=779) 07/08/16 19:47 Barbiturate Screen Negative ng/ml (FKRTAZ=571) 07/08/16 19:47 Phencyclidine Screen Negative ng/ml (CUTOFF=25) 07/08/16 19:47 Ur Amphetamines Screen Negative ng/ml (VJNVSJ=143) 07/08/16 19:47 MDMA (Ecstasy) Screen Negative ng/ml (QLEUSH=875) 07/08/16 19:47 Benzodiazepines Screen Negative ng/ml (RCQHQV=040) 07/08/16 19:47 Cocaine Screen Negative ng/ml (ORXFKS=047) 07/08/16 19:47 U Marijuana (THC) Screen Positive ng/ml (CUTOFF=50) 07/08/16 19:47 ekg 07/08: afib 143 bpm; nl axis; no path q's; no ST-T changes tele: afib with rates around 120-140s Imaging - Results Chest X-ray: Report Reviewed, Image Reviewed mibi 2012: no ischemia Echo 07/2016: nl lv/rv. 1+ lae. mild-mod mac, 1+ mr/tr Echo 12/2015: nl LVSF; nl RV; mild MR/TR; RVSP 30-40 a/p: 66 f smoker with hx pafib, hx pe/dvt, seizures and frequent falls with injury, copd, htn, anxiety, smoking, lung ca s/p resection 2012, RA, adrenal adenoma, h/o hep c, heroin use on methadone, [employer] disaese, who presents with sob/afib atrial fibrillation -last saw lydia in office 2013: sinus resting HR 54, ongoing palpitations ( not all correlated with afib on prior monitor per his notes), could not incr AVN blockers further -here 2014 for rash with rapid HRs then, despite home regimen toprol 25 bid and dig 125 qod -digoxin incr'd to daily at that time with adequate HR control on tele at time of hospital discharge -current home meds list reports toprol 50 qd without dig -HR 143 initially in ER -her afib clearly does not respond to max tolerated toprol -modest response to diltiazem 20 ivp 07/09 but dropped bp to 90s -pt does not seem to feel her afib as she denies any palpitations here or at home on DOA -here have started diltiazem plus digoxin for HR control. HR may improved as copd improves as well. Still with rvr so will start inderal 120 qd as well ( also has hyperthyroid). -if rapid AF tx is complicated by sinus shazia (i.e. SSS), need to consider rhythm control (flecainide vs ablation), though she previously deferred ablation with dr freeman -Dr. Hollis spoke with pmd dr gayle gonzalez --> she is frequently noncompliant and has been there mult times since 11/17 (including 04/20 and 06/18). no ekg's done but each of those times her HR was 70s-80s. given she has always been rapid when in afib here in past, she was extremely likely in sinus as recently as 06/18. -CHADS VASC 2--has been maintained on AC (xarelto at home), states she has not missed a single dose. stopped asa. patient endorsing recent frequent seizures, frequent falls. Noted to have both acute and old rib fractures on admission xrays. Also endorses recent ankle injury from fall. Per report and discussion with hospitalist, patient is also frequently non-compliant. Would recommend discussions with neuro and pmd regarding fall risk and risk/benefit of AC in this setting (note patient also on AC for h/o PE, unknown if provoked or unprovoked). sob, acute diastolic CHF -prior dry weights 179-180 when hospitalized here 2014 and 12/2015 -current wt 196, ? timing of this trend -has constant sob/wheezing from copd per pt--? worsening at home 1-2 wks ago due to chf (also new pedal edema then) -ER cxr reviewed: incr'd interstitial marking vs prior ? interstitial pulm edema pattern (perihilar predominance noted), probable vascular redistribution ( no effusions) -BNP 6K, from 900 baseline -will cont with lasix 40 iv qd for now since she is still getting steroids which is likely causing some fluid retention. Monitor chem daily. -at risk for tachy-CMP from review of prior notes-- repeat echo here with nl lv function. 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 Ongoing mgm't per pulm/pmd h/o PE: -? details of provoked vs unprovoked, results of hypercoag w/u -on xarelto. See discussion above. HTN: -controlled on current meds h/o heroin abuse: -on methadone maintenance
--- NOTE | 2016-07-11 11:10 | PN ---
Progress Note, Physician Chief Complaint: pulmonary alert,less congested,+cough - Current Medication List Current Medications: Active Medications Acetaminophen (Tylenol -) 650 mg PO Q6H PRN PRN Reason: FEVER OR PAIN Last Admin: 07/09/16 21:18 Dose: 650 mg Albuterol/Ipratropium (Duoneb -) 1 amp NEB Q6H PRN PRN Reason: SHORTNESS OF BREATH Last Admin: 07/11/16 09:10 Dose: 1 amp Albuterol/Ipratropium (Duoneb -) 1 amp NEB QIDR [facility] Last Admin: 07/11/16 06:25 Dose: 1 amp Clonazepam (Klonopin -) 1 mg PO BID [facility] Last Admin: 07/11/16 09:09 Dose: 1 mg Digoxin (Lanoxin -) 0.125 mg PO DAILY [facility] Last Admin: 07/11/16 09:09 Dose: Not Given Diltiazem HCl (Cardizem Injection -) 5 mg IVPUSH Q4H PRN PRN Reason: TACHYCARDIA Last Admin: 07/09/16 08:22 Dose: 5 mg Diltiazem HCl (Cardizem -) 90 mg PO QID [facility] Last Admin: 07/11/16 09:09 Dose: Not Given Docusate Sodium (Colace -) 100 mg PO TID [facility] Last Admin: 07/11/16 05:58 Dose: 100 mg Furosemide (Lasix Injection -) 40 mg IVPUSH DAILY [facility] Last Admin: 07/11/16 09:09 Dose: Not Given Gabapentin (Neurontin -) 300 mg PO TID [facility] Last Admin: 07/11/16 05:59 Dose: 300 mg Levetiracetam (Keppra -) 500 mg PO BID [facility] Last Admin: 07/11/16 09:09 Dose: Not Given Lidocaine (Lidoderm Patch -) 1 patch TP DAILY [facility] Last Admin: 07/11/16 09:09 Dose: Not Given Methadone HCl 40 mg/ Methadone (HCl 20 mg/ Methadone HCl 5 mg) 65 mg PO DAILY@ 0600 [facility] Last Admin: 07/11/16 05:58 Dose: 65 mg Methylprednisolone Sodium Succinate (Solu-Medrol -) 40 mg IVPB Q6H-IV [facility] Last Admin: 07/11/16 08:38 Dose: 40 mg Nicotine (Nicoderm Patch -) 21 mg TD DAILY PRN PRN Reason: NICOTINE REPLACEMENT RX Last Admin: 07/09/16 08:31 Dose: 21 mg Ondansetron HCl (Zofran Injection) 4 mg IVPB Q4H PRN PRN Reason: NAUSEA AND/OR VOMITING Pantoprazole Sodium (Protonix -) 40 mg PO DAILY [facility] Last Admin: 07/11/16 09:09 Dose: Not Given Propranolol HCl (Inderal La -) 120 mg PO DAILY [facility] Quetiapine Fumarate (Seroquel -) 300 mg PO [facility] Last Admin: 07/10/16 21:44 Dose: 300 mg Quetiapine Fumarate (Seroquel -) 25 mg PO DAILY PRN PRN Reason: ANXIETY Last Admin: 07/10/16 16:13 Dose: 25 mg Rivaroxaban (Xarelto -) 20 mg PO [facility] Last Admin: 07/10/16 21:43 Dose: 20 mg Fluticasone/Salmeterol (Advair 100mcg/50mcg -) 1 puff IH BID [facility] Last Admin: 07/11/16 09:08 Dose: 1 puff - Objective Vital Signs: Vital Signs Temperature 97.9 F 07/11/16 09:00 Pulse Rate 139 H 07/11/16 09:00 Respiratory Rate 20 07/11/16 09:00 Blood Pressure 115/84 07/11/16 09:00 O2 Sat by Pulse Oximetry (%) 97 07/11/16 09:00 Constitutional: Yes: Well Nourished, Calm Eyes: Yes: WNL HENT: Yes: WNL Neck: Yes: WNL Cardiovascular: Yes: Pulse Irregular, S1, S2 Respiratory: Yes: Rhonchi (bilateral rhonchi and wheezes), Wheezes Extremities: Yes: WNL Edema: Yes Labs: CBC, BMP 07/11/16 05:35 07/11/16 05:35 INR, PTT INR 1.27 (0.82-1.09) H 07/08/16 03:50 Assessment/Plan Problem List - Problems (1) Rapid atrial fibrillation Code(s): I48.91 - UNSPECIFIED ATRIAL FIBRILLATION (2) Chest pain Code(s): R07.9 - CHEST PAIN, UNSPECIFIED Qualifiers: Chest pain type: other chest pain Qualified Code(s): R07.89 - Other chest pain; R07.8 - Other chest pain (3) COPD (chronic obstructive pulmonary disease) Code(s): J44.9 - CHRONIC OBSTRUCTIVE PULMONARY DISEASE, UNSPECIFIED (4) H/O: lung cancer Code(s): Z85.118 - PERSONAL HISTORY OF MALIGNANT NEOPLASM OF BRONCHUS AND LUNG (5) Hypertension Code(s): I10 - ESSENTIAL (PRIMARY) HYPERTENSION (6) Opiate use Code(s): F11.90 - OPIOID USE, UNSPECIFIED, UNCOMPLICATED (7) Thyroid nodule Code(s): E04.1 - NONTOXIC SINGLE THYROID NODULE (8) COPD (chronic obstructive pulmonary disease) with emphysema Code(s): J43.9 - EMPHYSEMA, UNSPECIFIED Assessment/Plan RATE CONTROL CONTINUE A/C O2 SUPPLEMENTATION BRONCHODILATORS ANALGESIA FOR ACUTE LEFT RIB FX'S SMOKING CESSATION ANTIBIOTICS SOLUMEDROL SAME DOSE DR LOWE
[2016-07-11] MEDS: NICOTINE 21 MG/24 HOURS TOPICAL PATCH TD PRN (11:30)
--- NOTE | 2016-07-11 13:16 | CONSULT ---
Consult - History of Present Illness History of Present Illness: This is a 66 y/o F with h/o COPD, RA, Lung ca with local reoccurance, benign adrenal mass, a-fib, DVT hypotension, hep. C, thyriod nodules, PVD, HTN who who was admitted for SOB. She reported that she fell a week ago and hurt the left side of her Ribs. C/O dry cough and left sided chest pain associated with coughing and deep inspirations. TFT showed a TSH of 0.3 and 0.1 with FT4 of 0.99. Pt referred for evaluation of abnormal TFT and h/o thyroid nodule. Pt says she saw an Wastewater Treatment Supervisor >2 years ago and was told she has thyroid nodules. Doesn't know the name of the doctor. C/O tremors of hands for 3months, anxiety and weight gain. - History Source History Provided By: Patient, Medical Record Limitations to Obtaining History: Poor Historian - Past Medical History [employer]: No: Alzheimer's Cardio/Vascular: Yes: AFIB, HTN, Hyperlipdemia Pulmonary: Yes: COPD Gastrointestinal: Yes: Other (HEP C) Hepatobiliary: Yes: Hepatitis C Renal/: No: Renal Failure ...: No Infectious Disease: Yes: Other (recent hx of admission to the hosp for pneumonia ) Psych: Yes: Addictions (WAS ON 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), Anxiety Musculoskeletal: Yes: Chronic low back pain Rheumatology: No: Fibromyalgia ENT: No: Allergic Rhinitis Endocrine: Yes: Other (benign adrenal nodule s/p bx) - Past Surgical History Additional Surgical History: RESECTION OF LEFT UPPER LOBE - Alcohol/Substance Use Hx Alcohol Use: No History of Substance Use: reports: None - Smoking History Smoking history: Current every day smoker Have you smoked in the past 12 months: Yes Aproximately how many cigarettes per day: 20 If you are a former smoker, when did you quit?: 03-17-13 - Social History Usual Living Arrangement: Alone (considered w/a terminally ill condition which enables her get the single room she is currently in.) History of Recent Travel: No Home Medications - Allergies Allergies/Adverse Reactions: Allergies Allergy/AdvReac Type Severity Reaction Status Date / Time No Known Allergies Allergy Verified 07/08/16 03:36 - Home Medications Home Medications: Ambulatory Orders Clonazepam [KlonoPIN -] 1 mg PO BID 10/19/14 Methadone [Dolophine -] 65 mg PO DAILY 10/19/14 Tiotropium [place] [Spiriva] 1 inh PO BID 10/19/14 Quetiapine Fumarate [Seroquel -] 300 mg PO HS 02/05/15 Aspirin Coated [Ecotrin -] 81 mg PO DAILY tablet.ec 09/22/15 Docusate Sodium [Colace -] 100 mg PO TID capsule 09/22/15 Albuterol Sulfate Inhaler - [Ventolin HFA Inhaler -] 2 inh PO Q4H PRN 12/08/15 Nicotine Patch [Nicoderm Patch -] 1 patch TD DAILY PRN 12/08/15 Rivaroxaban [Xarelto -] 20 mg PO DAILY 12/10/15 Fluticasone/Salmeterol [Advair 250-50 Diskus] 1 puff IN BID 07/08/16 Furosemide [Lasix] 20 mg PO DAILY 07/08/16 Gabapentin [Neurontin] 300 mg PO TID 07/08/16 Levetiracetam [Keppra -] 500 mg PO BID 07/08/16 Metoprolol Succinate [Toprol Xl] 50 mg PO DAILY 07/08/16 Quetiapine Fumarate [Seroquel -] 25 mg PO DAILY PRN 07/08/16 Family Disease History - Family Disease History Family Disease History: Other: Father (ETOH DEPENDENT), Mother (HAD CVA AND ) Review of Systems - Review of Systems Constitutional: reports: Malaise Eyes: reports: No Symptoms HENT: reports: No Symptoms Neck: reports: No Symptoms Cardiovascular: reports: Shortness of Breath Respiratory: reports: SOB Gastrointestinal: reports: No Symptoms Genitourinary: reports: No Symptoms Musculoskeletal: reports: Extremity Pain Neurological: reports: No Symptoms Endocrine: reports: Other (tremors of hands) Psychiatric: reports: Anxiety Physical Exam Vital Signs: Vital Signs Temperature 97.9 F 07/11/16 09:00 Pulse Rate 139 H 07/11/16 09:00 Respiratory Rate 20 07/11/16 09:00 Blood Pressure 115/84 07/11/16 09:00 O2 Sat by Pulse Oximetry (%) 97 07/11/16 09:00 Constitutional: Yes: Well Nourished, Anxious Eyes: Yes: Conjunctiva Clear, EOM Intact HENT: Yes: Atraumatic, Normocephalic Neck: Yes: Supple, Trachea Midline, Other (No palpable nodules) Cardiovascular: Yes: Pulse Irregular Respiratory: Yes: Regular, CTA Bilaterally Gastrointestinal: Yes: Normal Bowel Sounds, Soft Extremities: Yes: Other (Stasis changes of legs) Edema: Yes Edema: LLE: 1+, RLE: 1+ Neurological: Yes: Alert, Oriented Labs: CBC, BMP 07/11/16 05:35 07/11/16 05:35 Assessment/Plan AP; Abnormal TFT: low TSH with normal FT4: probably secondary to IV steroids or nonthyroidal illness Most pt with such abnormality have normal thyroid levels when repeated as outpatient Check TSI and TPO Will f/u Hyperglycemia; Probably secondary to IV steroids Check Hb A1c Thyroid nodule: Rpt sonogram as outpatient. f/u with her glassie Mehdi Obrien Hand Tremors: Unlikely to be related to her thyroid status H/O seizures Respiratory failure Anxiety
[2016-07-11] MEDS: QUEtiapine FUMARATE 25 MG TABLET (FP) PO PRN (14:05)
[2016-07-11] MEDS ORDERED: dilTIAZem HCL 60 MG TABLET (FP) ONE (18:58)
[2016-07-11] MEDS: QUEtiapine FUMARATE 50 MG TABLET PO SCH (21:55)
[2016-07-11] MEDS: RIVAROXABAN 20 MG TABLET PO SCH (21:55)
[2016-07-11] MEDS: ACETAMINOPHEN 325 MG TABLET (FP) PO PRN (21:55)
[2016-07-11] MEDS ORDERED: IBUPROFEN 600 MG TABLET (FP) PO ONE (23:18)
[2016-07-12] MEDS: ALBUTEROL SO4 2.5/IPRATROPIUM 0.5 INH SOL 3 ML VIAL.NEB. NEB SCH ×5 (00:05→23:35)
[2016-07-12] MEDS: methylPREDNISolone NA SUCC 40 MG/1 ML VIAL IVPB SCH ×4 (03:39→21:10)
[2016-07-12] MEDS ORDERED: METHADONE HCL 10 MG TABLET ONE (05:43)
[2016-07-12] MEDS ORDERED: METHADONE HCL 40 MG DISPERSABLE TABLET ONE (05:44)
[2016-07-12] MEDS ORDERED: METHADONE HCL 5 MG TABLET ONE (05:44)
[2016-07-12] MEDS: DOCUSATE SODIUM 100 MG CAPSULE (FP) PO SCH ×3 (05:45→21:08)
[2016-07-12] MEDS: METHADONE 40 MG, METHADONE 20 MG, METHADONE 5 MG PO SCH (05:45)
[2016-07-12] MEDS: GABAPENTIN 300 MG CAPSULE (FP) PO SCH ×3 (05:45→21:08)
[2016-07-12 06:46] LABS: MCH 31.7 pg (25.7-33.7); MCHC 33.4 g/dl (32.0-36.0); MEAN CELL VOLUME 94.9 fl (80-96); MEAN PLT VOLUME 8.7 fl (7.5-11.1); PLATELET COUNT 214 K/MM3 (134-434); RDW 14.4 % (11.6-15.6); WHITE BLOOD COUNT 13.4 K/mm3 (4.0-10.0)
[2016-07-12 07:27] LABS: ALBUMIN 3.1 g/dl (3.4-5.0); CALCIUM 7.9 mg/dL (8.5-10.1)
[2016-07-12 07:30] LABS: BILIRUBIN,TOTAL 0.4 mg/dL (0.2-1.0); COCKROFT - GAULT 73.389; CREATININE 1.1 mg/dL (0.55-1.02); TOT PROT 7.6 g/dl (6.4-8.2)
[2016-07-12 08:07] LABS: THYROID PEROXIDASE(TPO) 18 IU/mL (0-34)
[2016-07-12 09:01] LABS: DIGOXIN LEVEL 0.4497 ng/ml (0.8-2.0)
[2016-07-12] MEDS: PANTOPRAZOLE 40 MG TABLET (FP) PO SCH (09:07)
[2016-07-12] MEDS: levETIRAcetam 500 MG TABLET (FP) PO SCH ×2 (09:07→21:08)
[2016-07-12] MEDS: clonazePAM 0.5 MG TABLET PO SCH ×2 (09:07→21:08)
[2016-07-12] MEDS: FUROSEMIDE 40 MG/4 ML INJECTABLE VIAL IVPUSH SCH (09:08)
[2016-07-12] MEDS: NICOTINE 21 MG/24 HOURS TOPICAL PATCH TD PRN (09:08)
[2016-07-12] MEDS: dilTIAZem HCL 60 MG TABLET (FP) PO SCH ×4 (09:08→21:07)
[2016-07-12] MEDS: DIGOXIN 0.125 MG TABLET (FP) PO SCH (09:08)
[2016-07-12] MEDS: LIDOCAINE 5% TOPICAL PATCH TP SCH (09:09)
--- NOTE | 2016-07-12 09:16 | PN ---
Progress Note (short form) - Note Progress Note: Feels better Vital Signs Period Temp Pulse Resp BP Sys/Smyth Pulse Ox Last 24 Hr 96.9 F-98.2 F 82-140 20-20 111-143/63-88 92-95 PE: AOx3 Neck: Supple, No JVD, No palpable nodules, No bruit HEENT: PERRL, EOMI Lungs: B/L crackles CVS: S1S2 Abd: Benign EXt: +Edema, +stasis changes Neuro: No focal deficit CMP Sodium 138 mmol/L (136-145) 07/12/16 05:35 Potassium 4.0 mmol/L (3.5-5.1) 07/12/16 05:35 Chloride 100 mmol/L (98-107) 07/12/16 05:35 Carbon Dioxide 28 mmol/L (21-32) 07/12/16 05:35 Anion Gap 10 (8-16) 07/12/16 05:35 BUN 30 mg/dL (7-18) H 07/12/16 05:35 Creatinine 1.1 mg/dL (0.55-1.02) H 07/12/16 05:35 Creat Clearance w eGFR 50.01 (>60) 07/12/16 05:35 POC Glucometer 208 UNITS (()) 07/09/16 15:37 Random Glucose 219 mg/dL (74-106) H 07/12/16 05:35 Hemoglobin A1c % 6.4 % (4.8-6.0) H 07/12/16 05:35 Calcium 7.9 mg/dL (8.5-10.1) L 07/12/16 05:35 Magnesium 2.8 mg/dL (1.8-2.4) H 07/11/16 05:35 Total Bilirubin 0.4 mg/dL (0.2-1.0) D 07/12/16 05:35 AST 14 U/L (15-37) L 07/12/16 05:35 ALT 31 U/L (12-78) 07/12/16 05:35 Alkaline Phosphatase 77 U/L (45-117) 07/12/16 05:35 Creatine Kinase 439 IU/L (26-192) H 07/08/16 03:50 Creatine Kinase Index 2.0 % (0.0-5.0) 07/08/16 03:50 CK-MB (CK-2) 8.573 ng/ml (0.5-3.6) H 07/08/16 03:50 Troponin I < 0.02 ng/ml (0.00-0.05) 07/08/16 18:31 B-Natriuretic Peptide 6862.07 pg/ml (5-125) H 07/08/16 03:50 Total Protein 7.6 g/dl (6.4-8.2) 07/12/16 05:35 Albumin 3.1 g/dl (3.4-5.0) L 07/12/16 05:35 TSH 0.10 uIU/ml (0.358-3.74) L D 07/11/16 10:15 Free T4 0.99 ng/dl (0.76-1.46) 07/11/16 10:15 Free T3 1.4 pg/ml (2.0-4.4) L 07/11/16 10:15 Current Medications Generic Name Dose Route Start Last Admin Trade Name Freq PRN Reason Stop Dose Admin Acetaminophen 650 mg 07/08/16 06:03 07/11/16 21:55 Tylenol - PO 650 mg Q6H PRN Administration FEVER OR PAIN Albuterol/Ipratropium 1 amp 07/08/16 06:07 07/11/16 09:10 Duoneb - NEB 1 amp Q6H PRN Administration SHORTNESS OF BREATH Albuterol/Ipratropium 1 amp 07/08/16 12:00 07/12/16 11:25 Duoneb - NEB 1 amp QIDR LORRIE Administration Clonazepam 1 mg 07/08/16 10:00 07/12/16 09:07 Klonopin - PO 1 mg BID LORRIE Administration Digoxin 0.125 mg 07/09/16 11:45 07/12/16 09:08 Lanoxin - PO 0.125 mg DAILY LORRIE Administration Diltiazem HCl 5 mg 07/09/16 00:01 07/09/16 08:22 Cardizem Injection - IVPUSH 5 mg Q4H PRN Administration TACHYCARDIA Diltiazem HCl 90 mg 07/10/16 13:12 07/12/16 14:09 Cardizem - PO 90 mg QID LORRIE Administration Docusate Sodium 100 mg 07/08/16 14:00 07/12/16 14:10 Colace - PO 100 mg TID LORRIE Administration Furosemide 40 mg 07/10/16 13:15 07/12/16 09:08 Lasix Injection - IVPUSH 40 mg DAILY LORRIE Administration Gabapentin 300 mg 07/08/16 14:00 07/12/16 14:10 Neurontin - PO 300 mg TID LORRIE Administration Levetiracetam 500 mg 07/08/16 10:00 07/12/16 09:07 Keppra - PO 500 mg BID LORRIE Administration Lidocaine 1 patch 07/09/16 10:00 07/12/16 09:09 Lidoderm Patch - TP 1 patch DAILY LORRIE Administration Methadone HCl 40 mg/ Methadone 65 mg 07/09/16 08:30 07/12/16 05:45 HCl 20 mg/ Methadone HCl 5 mg PO 65 mg DAILY@0600 LORRIE Administration Methylprednisolone Sodium Succinate 40 mg 07/10/16 15:00 07/12/16 14:29 Solu-Medrol - IVPB 40 mg Q6H-IV LORRIE Administration Nicotine 21 mg 07/08/16 10:00 07/12/16 09:08 Nicoderm Patch - TD 21 mg DAILY PRN Administration NICOTINE REPLACEMENT RX Ondansetron HCl 4 mg 07/08/16 06:03 Zofran Injection IVPB Q4H PRN NAUSEA AND/OR VOMITING Pantoprazole Sodium 40 mg 07/11/16 10:00 07/12/16 09:07 Protonix - PO 40 mg DAILY LORRIE Administration Propranolol HCl 120 mg 07/11/16 11:00 07/12/16 09:20 Inderal La - PO 120 mg DAILY LORRIE Administration Quetiapine Fumarate 300 mg 07/08/16 22:00 07/11/16 21:55 Seroquel - PO 300 mg HS LORRIE Administration Quetiapine Fumarate 25 mg 07/08/16 09:35 07/11/16 14:05 Seroquel - PO 25 mg DAILY PRN Administration ANXIETY Rivaroxaban 20 mg 07/08/16 22:00 07/11/16 21:55 Xarelto - PO 20 mg HS LORRIE Administration Fluticasone/Salmeterol 1 puff 07/08/16 10:00 07/11/16 21:56 Advair 100mcg/50mcg - IH 1 puff BID LORRIE Administration AP; Abnormal TFT: low TSH with normal FT4, low FT3: probably secondary to IV steroids or nonthyroidal illness. I don't believe the patient is currently hyperthyroid. Most pt with such abnormality have normal thyroid levels when repeated as outpatient so needs no treatment at this point. TPO normal, TSI pending Will f/u Hyperglycemia; Probably secondary to IV steroids Hb A1c 6.4 Thyroid nodule: Rpt sonogram as outpatient. f/u with her shoe trimmer Mehdi Obrien Hand Tremors: Unlikely to be related to her thyroid status H/O seizures Respiratory failure Anxiety
[2016-07-12] MEDS ORDERED: PT OWN MED DRAWER 7, Y5N ONE (09:19)
--- NOTE | 2016-07-12 10:16 | PN ---
Teaching Attending Note Name of Resident: Alisha Grossman ATTENDING PHYSICIAN STATEMENT I saw and evaluated the patient. I reviewed the resident's note and discussed the case with the resident. I agree with the resident's findings and plan as documented. SUBJECTIVE: Continues to feel short of breath, KEENE needing oxygen. OBJECTIVE: Vital Signs Temperature 98.2 F 07/12/16 09:00 Pulse Rate 92 H 07/12/16 09:08 Respiratory Rate 18 07/12/16 09:00 Blood Pressure 138/88 07/12/16 09:00 O2 Sat by Pulse Oximetry (%) 95 07/11/16 20:33 CBCD WBC 13.4 K/mm3 (4.0-10.0) H 07/12/16 05:35 RBC 4.37 M/mm3 (3.60-5.2) 07/12/16 05:35 Hgb 13.8 GM/dL (10.7-15.3) 07/12/16 05:35 Hct 41.5 % (32.4-45.2) 07/12/16 05:35 MCV 94.9 fl (80-96) 07/12/16 05:35 MCHC 33.4 g/dl (32.0-36.0) 07/12/16 05:35 RDW 14.4 % (11.6-15.6) 07/12/16 05:35 Plt Count 214 K/MM3 (134-434) 07/12/16 05:35 MPV 8.7 fl (7.5-11.1) 07/12/16 05:35 CMP Sodium 138 mmol/L (136-145) 07/12/16 05:35 Potassium 4.0 mmol/L (3.5-5.1) 07/12/16 05:35 Chloride 100 mmol/L (98-107) 07/12/16 05:35 Carbon Dioxide 28 mmol/L (21-32) 07/12/16 05:35 Anion Gap 10 (8-16) 07/12/16 05:35 BUN 30 mg/dL (7-18) H 07/12/16 05:35 Creatinine 1.1 mg/dL (0.55-1.02) H 07/12/16 05:35 Creat Clearance w eGFR 50.01 (>60) 07/12/16 05:35 Random Glucose 219 mg/dL (74-106) H 07/12/16 05:35 Calcium 7.9 mg/dL (8.5-10.1) L 07/12/16 05:35 Total Bilirubin 0.4 mg/dL (0.2-1.0) D 07/12/16 05:35 AST 14 U/L (15-37) L 07/12/16 05:35 ALT 31 U/L (12-78) 07/12/16 05:35 Alkaline Phosphatase 77 U/L (45-117) 07/12/16 05:35 Total Protein 7.6 g/dl (6.4-8.2) 07/12/16 05:35 Albumin 3.1 g/dl (3.4-5.0) L 07/12/16 05:35 CARDIAC ENZYMES Creatine Kinase 439 IU/L (26-192) H 07/08/16 03:50 Troponin I < 0.02 ng/ml (0.00-0.05) 07/08/16 18:31 Current Medications Generic Name Dose Route Start Last Admin Trade Name Freq PRN Reason Stop Dose Admin Acetaminophen 650 mg 07/08/16 06:03 07/11/16 21:55 Tylenol - PO 650 mg Q6H PRN Administration FEVER OR PAIN Albuterol/Ipratropium 1 amp 07/08/16 06:07 07/11/16 09:10 Duoneb - NEB 1 amp Q6H PRN Administration SHORTNESS OF BREATH Albuterol/Ipratropium 1 amp 07/08/16 12:00 07/12/16 06:55 Duoneb - NEB 1 amp QIDR LORRIE Administration Clonazepam 1 mg 07/08/16 10:00 07/12/16 09:07 Klonopin - PO 1 mg BID LORRIE Administration Digoxin 0.125 mg 07/09/16 11:45 07/12/16 09:08 Lanoxin - PO 0.125 mg DAILY LORRIE Administration Diltiazem HCl 5 mg 07/09/16 00:01 07/09/16 08:22 Cardizem Injection - IVPUSH 5 mg Q4H PRN Administration TACHYCARDIA Diltiazem HCl 90 mg 07/10/16 13:12 07/12/16 09:08 Cardizem - PO 90 mg QID LORRIE Administration Docusate Sodium 100 mg 07/08/16 14:00 07/12/16 05:45 Colace - PO 100 mg TID LORRIE Administration Furosemide 40 mg 07/10/16 13:15 07/12/16 09:08 Lasix Injection - IVPUSH 40 mg DAILY LORRIE Administration Gabapentin 300 mg 07/08/16 14:00 07/12/16 05:45 Neurontin - PO 300 mg TID LORRIE Administration Levetiracetam 500 mg 07/08/16 10:00 07/12/16 09:07 Keppra - PO 500 mg BID LORRIE Administration Lidocaine 1 patch 07/09/16 10:00 07/12/16 09:09 Lidoderm Patch - TP 1 patch DAILY LORRIE Administration Methadone HCl 40 mg/ Methadone 65 mg 07/09/16 08:30 07/12/16 05:45 HCl 20 mg/ Methadone HCl 5 mg PO 65 mg DAILY@0600 LORRIE Administration Methylprednisolone Sodium Succinate 40 mg 07/10/16 15:00 07/12/16 09:08 Solu-Medrol - IVPB 40 mg Q6H-IV LORRIE Administration Nicotine 21 mg 07/08/16 10:00 07/12/16 09:08 Nicoderm Patch - TD 21 mg DAILY PRN Administration NICOTINE REPLACEMENT RX Ondansetron HCl 4 mg 07/08/16 06:03 Zofran Injection IVPB Q4H PRN NAUSEA AND/OR VOMITING Pantoprazole Sodium 40 mg 07/11/16 10:00 07/12/16 09:07 Protonix - PO 40 mg DAILY LORRIE Administration Propranolol HCl 120 mg 07/11/16 11:00 07/12/16 09:20 Inderal La - PO 120 mg DAILY LORRIE Administration Quetiapine Fumarate 300 mg 07/08/16 22:00 07/11/16 21:55 Seroquel - PO 300 mg HS LORRIE Administration Quetiapine Fumarate 25 mg 07/08/16 09:35 07/11/16 14:05 Seroquel - PO 25 mg DAILY PRN Administration ANXIETY Rivaroxaban 20 mg 07/08/16 22:00 07/11/16 21:55 Xarelto - PO 20 mg HS LORRIE Administration Fluticasone/Salmeterol 1 puff 07/08/16 10:00 07/11/16 21:56 Advair 100mcg/50mcg - IH 1 puff BID LORRIE Administration Home Medications Medication Instructions Recorded Clonazepam [KlonoPIN -] 1 mg PO BID 10/19/14 Methadone [Dolophine -] 65 mg PO DAILY 10/19/14 Tiotropium [place] [Spiriva] 1 inh PO BID 10/19/14 Quetiapine Fumarate [Seroquel -] 300 mg PO HS 02/05/15 Aspirin Coated [Ecotrin -] 81 mg PO DAILY tablet.ec 09/22/15 Docusate Sodium [Colace -] 100 mg PO TID capsule 09/22/15 Albuterol Sulfate Inhaler - 2 inh PO Q4H PRN 12/08/15 [Ventolin HFA Inhaler -] Nicotine Patch [Nicoderm Patch -] 1 patch TD DAILY PRN 12/08/15 Rivaroxaban [Xarelto -] 20 mg PO DAILY 12/10/15 Fluticasone/Salmeterol [Advair 1 puff IN BID 07/08/16 250-50 Diskus] Furosemide [Lasix] 20 mg PO DAILY 07/08/16 Gabapentin [Neurontin] 300 mg PO TID 07/08/16 Levetiracetam [Keppra -] 500 mg PO BID 07/08/16 Metoprolol Succinate [Toprol Xl] 50 mg PO DAILY 07/08/16 Quetiapine Fumarate [Seroquel -] 25 mg PO DAILY PRN 07/08/16 ASSESSMENT AND PLAN: 66 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 C, thyroid nodules, who presented with worsening SOB x 1 week, wheezing , fever and increased sputum production. She was found to have acute COPD exacerbation, with Afib in RVR. # A fib with rate controlled this morning on xarelto( started as an outpatient ) with a rate of 92this morning; on digoxin and cardizem ( started here ) for rate control. Also added Inderal LA 120mg daily. discontinued Toprol added Inderal continue telemetry monitoring. discussed with the track oiler. # Acute hypoxic respiratory failure continues to wheeze and continues to have shortness of breath peter.on exertion due to COPD exacerbation/diastolic heart failure. On IV steroids continue , Duo-Nebs QID and PRN, Bipap at night as needed , on IV lasix , advair . completed 3 day course of IV ceftriaxone day 05/04 (no evidence of PNA) Pulmonary consult appreciated. # Acute diastolic heart failure , due to Afib rate controlled now : on IV lasix 40 daily , echo reviewed #Hx of Hyperthryroidism as per patient: As per ,her increased rate is not due to her hyperthyroidism . we don't have the thyroid w/u from her physician, patient will follow either with her PMD or as an out patient for further w/u # L sided rib Fx : on lidocaine patch for pain ; on methadone program will not give additional narcotics, as she looks comfortable and will affect her breathing #H/o Seizure , reports having multiple seizures last month . Patient is not complaint with her keppra since did not pickle sorter her keppra since 06/07 . will cont her Keppra ;will try to get 4-day EEG report from her neurologist if possible since she had done it as an outpatient. #Hx of heroin abuse on methadone program # DVT px : on xarelto
--- NOTE | 2016-07-12 11:01 | PN ---
Physical Exam: SUBJECTIVE: Patient seen and examined at bed side this morning. Patient mentions that she couldn't sleep all night. Still has difficulty in breathing. Complaints of pain under the left breast. OBJECTIVE: Vital Signs Period Temp Pulse Resp BP Sys/Smyth Pulse Ox Last 24 Hr 96.9 F-98.2 F 82-140 18-20 111-143/63-88 92-95 GENERAL: The patient is obese, sitting comfortably in bed, awake, alert, and fully oriented, in no acute distress, nasal canula in place. HEAD: Normal with no signs of trauma. EYES: EOM intact, no pallor or icterus. ENT: Ears normal moist mucous membranes. NECK: Trachea midline, full range of motion, supple. Thyroid fullness, couldn't appreciate the thyroid nodules. LUNGS: Tenderness under the left breast, Breath sounds equal, scattered rhonchi bilaterally, occasional wheeze, no crackles, no accessory muscle use. HEART: Irregularly irregular rate and rhythm, S1, S2 without murmur, rub or gallop. ABDOMEN: Soft, nontender, nondistended, normoactive bowel sounds, no guarding, no rebound, no hepatosplenomegaly, no masses. EXTREMITIES: 2+ pulses, warm, well-perfused,trace pedal edema. Tenderness on palpation over the right great toe. NEUROLOGICAL: Cranial nerves II through XII grossly intact. Normal speech, gait not observed. PSYCH: Normal mood, normal affect. SKIN: Warm, dry, normal turgor, no rashes or lesions noted Laboratory Results - last 24 hr 07/11/16 07/11/16 07/11/16 10:15 10:15 10:15 WBC RBC Hgb Hct MCV MCHC RDW Plt Count MPV Sodium Potassium Chloride Carbon Dioxide Anion Gap BUN Creatinine Creat Clearance w eGFR Random Glucose Hemoglobin A1c % Calcium Total Bilirubin AST ALT Alkaline Phosphatase Total Protein Albumin TSH 0.10 L D Free T4 0.99 Free T3 1.4 L Digoxin Thyroglobulin Antibody Thyroid Peroxidase Ab 07/11/16 07/12/16 07/12/16 10:15 05:35 05:35 WBC 13.4 H RBC 4.37 Hgb 13.8 Hct 41.5 MCV 94.9 MCHC 33.4 RDW 14.4 Plt Count 214 MPV 8.7 Sodium 138 Potassium 4.0 Chloride 100 Carbon Dioxide 28 Anion Gap 10 BUN 30 H Creatinine 1.1 H Creat Clearance w eGFR 50.01 Random Glucose 219 H Hemoglobin A1c % Calcium 7.9 L Total Bilirubin 0.4 D AST 14 L ALT 31 Alkaline Phosphatase 77 Total Protein 7.6 Albumin 3.1 L TSH Free T4 Free T3 Digoxin 0.4497 L Thyroglobulin Antibody < 1.0 Thyroid Peroxidase Ab 18 07/12/16 07/12/16 05:35 06:00 WBC RBC Hgb Hct MCV MCHC RDW Plt Count MPV Sodium Potassium Chloride Carbon Dioxide Anion Gap BUN Creatinine Creat Clearance w eGFR Random Glucose Hemoglobin A1c % 6.4 H Calcium Total Bilirubin AST ALT Alkaline Phosphatase Total Protein Albumin TSH Free T4 Free T3 Digoxin Cancelled Thyroglobulin Antibody Thyroid Peroxidase Ab Active Medications Generic Name Dose Route Start Last Admin Trade Name Freq PRN Reason Stop Dose Admin Acetaminophen 650 mg 07/08/16 06:03 07/11/16 21:55 Tylenol - PO 650 mg Q6H PRN Administration FEVER OR PAIN Albuterol/Ipratropium 1 amp 07/08/16 06:07 07/11/16 09:10 Duoneb - NEB 1 amp Q6H PRN Administration SHORTNESS OF BREATH Albuterol/Ipratropium 1 amp 07/08/16 12:00 07/12/16 06:55 Duoneb - NEB 1 amp QIDR LORRIE Administration Clonazepam 1 mg 07/08/16 10:00 07/12/16 09:07 Klonopin - PO 1 mg BID LORRIE Administration Digoxin 0.125 mg 07/09/16 11:45 07/12/16 09:08 Lanoxin - PO 0.125 mg DAILY LORRIE Administration Diltiazem HCl 5 mg 07/09/16 00:01 07/09/16 08:22 Cardizem Injection - IVPUSH 5 mg Q4H PRN Administration TACHYCARDIA Diltiazem HCl 90 mg 07/10/16 13:12 07/12/16 09:08 Cardizem - PO 90 mg QID LORRIE Administration Docusate Sodium 100 mg 07/08/16 14:00 07/12/16 05:45 Colace - PO 100 mg TID LORRIE Administration Furosemide 40 mg 07/10/16 13:15 07/12/16 09:08 Lasix Injection - IVPUSH 40 mg DAILY LORRIE Administration Gabapentin 300 mg 07/08/16 14:00 07/12/16 05:45 Neurontin - PO 300 mg TID LORRIE Administration Levetiracetam 500 mg 07/08/16 10:00 07/12/16 09:07 Keppra - PO 500 mg BID LORRIE Administration Lidocaine 1 patch 07/09/16 10:00 07/12/16 09:09 Lidoderm Patch - TP 1 patch DAILY LORRIE Administration Methadone HCl 40 mg/ Methadone 65 mg 07/09/16 08:30 07/12/16 05:45 HCl 20 mg/ Methadone HCl 5 mg PO 65 mg DAILY@0600 LORRIE Administration Methylprednisolone Sodium Succinate 40 mg 07/10/16 15:00 07/12/16 09:08 Solu-Medrol - IVPB 40 mg Q6H-IV LORRIE Administration Nicotine 21 mg 07/08/16 10:00 07/12/16 09:08 Nicoderm Patch - TD 21 mg DAILY PRN Administration NICOTINE REPLACEMENT RX Ondansetron HCl 4 mg 07/08/16 06:03 Zofran Injection IVPB Q4H PRN NAUSEA AND/OR VOMITING Pantoprazole Sodium 40 mg 07/11/16 10:00 07/12/16 09:07 Protonix - PO 40 mg DAILY LORRIE Administration Propranolol HCl 120 mg 07/11/16 11:00 07/12/16 09:20 Inderal La - PO 120 mg DAILY LORRIE Administration Quetiapine Fumarate 300 mg 07/08/16 22:00 07/11/16 21:55 Seroquel - PO 300 mg HS LORRIE Administration Quetiapine Fumarate 25 mg 07/08/16 09:35 07/11/16 14:05 Seroquel - PO 25 mg DAILY PRN Administration ANXIETY Rivaroxaban 20 mg 07/08/16 22:00 07/11/16 21:55 Xarelto - PO 20 mg HS LORRIE Administration Fluticasone/Salmeterol 1 puff 07/08/16 10:00 07/11/16 21:56 Advair 100mcg/50mcg - IH 1 puff BID LORRIE Administration 07/11/[address]: Negative for any acute pathology 07/11/[address]: Impression: Status post left upper partial lobectomy with multiple surgical sutures in the left hilum Stable tiny right upper and left lung base nodule. Interval focal low-attenuation nodular opacity in the right middle lobe abutting the fissure on axial image 48 measuring 7 mm for which further evaluation with PET/CT or follow-up CT scan of the chest in 3 months is recommended in view of the clinical history of lung cancer CXR : Left rib fracture. No evidence of pneumonia. ASSESSMENT/PLAN: Patient is a 65 year old lady with h/o COPD, RA, Lung ca with local reoccurance , benign adrenal mass, a-fib, DVT, hypotension, hep. C, thyriod nodules, PVD, HTN who BIB EMS with SOB. # Acute hypoxic respiratory failure-Improving Patient presented with SOB and is still complaining of shortness of breath. Still congested but No pneumonia on CXR CT Chest was done on 07/11/16, report mentioned above Patient denies using Bipap at night Start Duonebs, supp O2, IV Steroids 40mg Q6H Continue home Lasix IV 40 Daily Patient was getting IV Ceftriaxone which was stopped at Day 3 as there are no signs of infection or pneumonia. Respiratory therapy requested # AFIB w RVR - Rate controlled (today) with acute diastolic heart failure On IV Diltiazem 5mg IV PRN Continue Rivaroxaban 20mg- since patient has a h/o frequent falls, risk of incracranial bleed is high. Fall precautions. As per cardiology, plan is ? Flecainide vs ablation if rate is not controlled. Continuous Cardiac monitoring Cardiology consult appreciated. Daily Weights I's and O's # Atypical chest pain Likely due to left rib fracture s/p mechanical fall a couple of weeks ago. Already on Methadone and Lidocaine patch hence will not give additional narcotics. # HTN Metoprolol stopped and started on Digoxin. Digoxin level pending. # Hx of heroin abuse On Methadone 65mg Daily (dose confirmed) # Hx of Seizures Last seizure was 2 weeks ago despite being on keppra 500mg BID No seizure activity noted this admission. Confirmed that patient is non compliant with medication. Neurology consult appreciated Fall precautions CT head negative for any acute pathology Patient recently had an EEG done. Records of PCP's office received but don't have EEG report. Will try to get from her neurologist. Physical therapy requested # Tremors of extremities likely metabolic vs infectious induced vs less likely Essential Tremor. Tremors less likely due to Hyperthyroidism # Thyroid nodules Patient mentions that she has gained weight since last year. She did have thyroid ultrasound as outpatient but hasn't had any biopsy. Hasn't seen Wood Fence Installer since years. Free T4 normal, T3 Decreased and TSH decreased Started her on Propanolol 120mg Daily. (Discussed with Dr. Chung and Dr. Encarnacion) Endocrinology consult appreciated Would consider thyroid ultrasound as outpatient. # PVD Continue ASA # H/o anxiety cont seroquel . 300 HS and 25 q AM PRN Clonazepam 1mg PO BID # Active smoker Smoking cessation counseling Nicotine patch # Prophylaxis For DVT: on rivaroxaban 20mg HS. For GI: not indicated # FEN Not on IV fluids Electrolytes to be repeated in am Low salt diet # Code Status: Full Code # Dispo- Admitted in Tele. Duration of stay unknown. Illness, Investigation and Plan of care explained to the patient. She verbalized understanding. Case seen and discussed with Dr. Encarnacion. Visit type - Emergency Visit Emergency Visit: Yes ED Registration Date: 07/08/16 Care time: The patient presented to the Emergency Department on the above date and was hospitalized for further evaluation of their emergent condition. - New Patient This patient is new to me today: No - Critical Care Critical Care patient: No
--- NOTE | 2016-07-12 11:48 | PN ---
Progress Note (short form) - Note Progress Note: Chief Complaint: sob/afib S: still with sob, cough. no cp, palps, dizziness. Current Medications Generic Name Dose Route Start Last Admin Trade Name Freq PRN Reason Stop Dose Admin Acetaminophen 650 mg 07/08/16 06:03 07/11/16 21:55 Tylenol - PO 650 mg Q6H PRN Administration FEVER OR PAIN Albuterol/Ipratropium 1 amp 07/08/16 06:07 07/11/16 09:10 Duoneb - NEB 1 amp Q6H PRN Administration SHORTNESS OF BREATH Albuterol/Ipratropium 1 amp 07/08/16 12:00 07/12/16 06:55 Duoneb - NEB 1 amp QIDR [facility] Administration Clonazepam 1 mg 07/08/16 10:00 07/12/16 09:07 Klonopin - PO 1 mg BID [facility] Administration Digoxin 0.125 mg 07/09/16 11:45 07/12/16 09:08 Lanoxin - PO 0.125 mg DAILY [facility] Administration Diltiazem HCl 5 mg 07/09/16 00:01 07/09/16 08:22 Cardizem Injection - IVPUSH 5 mg Q4H PRN Administration TACHYCARDIA Diltiazem HCl 90 mg 07/10/16 13:12 07/12/16 09:08 Cardizem - PO 90 mg QID [facility] Administration Docusate Sodium 100 mg 07/08/16 14:00 07/12/16 05:45 Colace - PO 100 mg TID [facility] Administration Furosemide 40 mg 07/10/16 13:15 07/12/16 09:08 Lasix Injection - IVPUSH 40 mg DAILY [facility] Administration Gabapentin 300 mg 07/08/16 14:00 07/12/16 05:45 Neurontin - PO 300 mg TID [facility] Administration Levetiracetam 500 mg 07/08/16 10:00 07/12/16 09:07 Keppra - PO 500 mg BID [facility] Administration Lidocaine 1 patch 07/09/16 10:00 07/12/16 09:09 Lidoderm Patch - TP 1 patch DAILY [facility] Administration Methadone HCl 40 mg/ Methadone 65 mg 07/09/16 08:30 07/12/16 05:45 HCl 20 mg/ Methadone HCl 5 mg PO 65 mg DAILY@0600 [facility] Administration Methylprednisolone Sodium Succinate 40 mg 07/10/16 15:00 07/12/16 09:08 Solu-Medrol - IVPB 40 mg Q6H-IV [facility] Administration Nicotine 21 mg 07/08/16 10:00 07/12/16 09:08 Nicoderm Patch - TD 21 mg DAILY PRN Administration NICOTINE REPLACEMENT RX Ondansetron HCl 4 mg 07/08/16 06:03 Zofran Injection IVPB Q4H PRN NAUSEA AND/OR VOMITING Pantoprazole Sodium 40 mg 07/11/16 10:00 07/12/16 09:07 Protonix - PO 40 mg DAILY [facility] Administration Propranolol HCl 120 mg 07/11/16 11:00 07/12/16 09:20 Inderal La - PO 120 mg DAILY [facility] Administration Quetiapine Fumarate 300 mg 07/08/16 22:00 07/11/16 21:55 Seroquel - PO 300 mg HS [facility] Administration Quetiapine Fumarate 25 mg 07/08/16 09:35 07/11/16 14:05 Seroquel - PO 25 mg DAILY PRN Administration ANXIETY Rivaroxaban 20 mg 07/08/16 22:00 07/11/16 21:55 Xarelto - PO 20 mg HS [facility] Administration Fluticasone/Salmeterol 1 puff 07/08/16 10:00 07/11/16 21:56 Advair 100mcg/50mcg - IH 1 puff BID [facility] Administration Vital Signs Period Temp Pulse Resp BP Sys/Smyth Pulse Ox Last 24 Hr 96.9 F-98.2 F 82-137 18-20 111-143/63-88 95 Constitutional: Yes: No Distress, Obese, sleepy Eyes: No: Sclera Icterus HENT: No: Nasal Congestion Neck: No: Decreased ROM Respiratory: Yes: Rhonchi, Wheezes (diffuse), nl eff No: Accessory Muscle Use, Rales Gastrointestinal: Yes: Normal Bowel Sounds. No: Distention, Hepatomegaly, Palpable Mass, Tenderness Cardiovascular: Yes: Pulse Irregular JVD: No Heart Sounds: Yes: irreg, rr S1, S2. No: Gallop Murmur: No: Systolic Murmur, Diastolic Murmur Musculoskeletal: Yes: Other (No kyphosis) Extremities: No: Cold, Cyanosis Edema: trace le edema bl Integumentary: No: Jaundice diaphoresis Neurological: Yes: Alert, Oriented (x3) Psychiatric: No: Agitated CBC, BMP 07/12/16 05:35 07/12/16 05:35 ekg 07/08: afib 143 bpm; nl axis; no path q's; no ST-T changes tele: afib, vr controlled mibi 2012: no ischemia Echo 07/2016: nl lv/rv. 1+ lae. mild-mod mac, 1+ mr/tr Echo 12/2015: nl LVSF; nl RV; mild MR/TR; RVSP 30-40 a/p: 66 f smoker with hx pafib, hx pe/dvt, seizures and frequent falls with injury, copd, htn, anxiety, smoking, lung ca s/p resection 2012, RA, adrenal adenoma, h/o hep c, heroin use on methadone, Buergers disaese, who presents with sob/afib atrial fibrillation -last saw lydia in office 2013: sinus resting HR 54, ongoing palpitations ( not all correlated with afib on prior monitor per his notes), could not incr AVN blockers further -here 2014 for rash with rapid HRs then, despite home regimen toprol 25 bid and dig 125 qod -digoxin incr'd to daily at that time with adequate HR control on tele at time of hospital discharge -current home meds list reports toprol 50 qd without dig -HR 143 initially in ER -her afib clearly does not respond to max tolerated toprol -modest response to diltiazem 20 ivp 07/09 but dropped bp to 90s -pt does not seem to feel her afib as she denies any palpitations here or at home on DOA -now on dilt, dig, inderal and HR controlled. Cont same for now. HR may improve as copd improves as well and she may not need as much rate meds in future. -if rapid AF tx is complicated by sinus shazia (i.e. SSS), need to consider rhythm control (flecainide vs ablation), though she previously deferred ablation with dr freeman -Dr. Hollis spoke with pmd dr gayle gonzalez --> she is frequently noncompliant and has been there mult times since 11/17 (including 04/20 and 06/18). no ekg's done but each of those times her HR was 70s-80s. given she has always been rapid when in afib here in past, she was extremely likely in sinus as recently as 06/18. -CHADS VASC 2--has been maintained on AC (xarelto at home), states she has not missed a single dose. stopped asa. patient endorsing recent frequent seizures, frequent falls. Noted to have both acute and old rib fractures on admission xrays. Also endorses recent ankle injury from fall. Per report and discussion with hospitalist, patient is also frequently non-compliant. Would recommend discussions with neuro and pmd regarding fall risk and risk/benefit of AC in this setting (note patient also on AC for h/o PE, unknown if provoked or unprovoked). sob, copd, acute diastolic CHF -prior dry weights 179-180 when hospitalized here 2014 and 12/2015 -current wt 196, ? timing of this trend -has constant sob/wheezing from copd per pt--? worsening at home 1-2 wks ago due to chf (also new pedal edema then) -ER cxr reviewed: incr'd interstitial marking vs prior ? interstitial pulm edema pattern (perihilar predominance noted), probable vascular redistribution ( no effusions) -BNP 6K, from 900 baseline -will cont with lasix 40 iv qd for now since she is still getting steroids which is likely causing some fluid retention. Monitor chem daily. Still with significant wheezing/stephens, remains on iv steroids. -at risk for tachy-CMP from review of prior notes-- repeat echo here with nl lv function. 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 Ongoing mgm't per pulm/pmd h/o PE: -? details of provoked vs unprovoked, results of hypercoag w/u -on xarelto. See discussion above. HTN: -controlled on current meds h/o heroin abuse: -on methadone maintenance
--- NOTE | 2016-07-12 14:49 | PN ---
Progress Note (short form) - Note Progress Note: PULMONARY Still some shortness of breath, nonproductive cough and wheezing. Last Vital Signs Temp Pulse Resp BP Pulse Ox 98.2 F 92 H 18 138/88 95 07/12/16 09:00 07/12/16 09:08 07/12/16 09:00 07/12/16 09:00 07/11/16 20:33 Gen: NAD at rest Heart: RRR Lung: scattered rhonchi, wheezes Abd: soft, nontender Ext: no edema CBC, BMP 07/12/16 05:35 07/12/16 05:35 Active Medications Acetaminophen (Tylenol -) 650 mg PO Q6H PRN PRN Reason: FEVER OR PAIN Last Admin: 07/11/16 21:55 Dose: 650 mg Albuterol/Ipratropium (Duoneb -) 1 amp NEB Q6H PRN PRN Reason: SHORTNESS OF BREATH Last Admin: 07/11/16 09:10 Dose: 1 amp Albuterol/Ipratropium (Duoneb -) 1 amp NEB QIDR [facility] Last Admin: 07/12/16 11:25 Dose: 1 amp Clonazepam (Klonopin -) 1 mg PO BID [facility] Last Admin: 07/12/16 09:07 Dose: 1 mg Digoxin (Lanoxin -) 0.125 mg PO DAILY [facility] Last Admin: 07/12/16 09:08 Dose: 0.125 mg Diltiazem HCl (Cardizem Injection -) 5 mg IVPUSH Q4H PRN PRN Reason: TACHYCARDIA Last Admin: 07/09/16 08:22 Dose: 5 mg Diltiazem HCl (Cardizem -) 90 mg PO QID [facility] Last Admin: 07/12/16 14:09 Dose: 90 mg Docusate Sodium (Colace -) 100 mg PO TID [facility] Last Admin: 07/12/16 14:10 Dose: 100 mg Furosemide (Lasix Injection -) 40 mg IVPUSH DAILY [facility] Last Admin: 07/12/16 09:08 Dose: 40 mg Gabapentin (Neurontin -) 300 mg PO TID [facility] Last Admin: 07/12/16 14:10 Dose: 300 mg Levetiracetam (Keppra -) 500 mg PO BID [facility] Last Admin: 07/12/16 09:07 Dose: 500 mg Lidocaine (Lidoderm Patch -) 1 patch TP DAILY [facility] Last Admin: 07/12/16 09:09 Dose: 1 patch Methadone HCl 40 mg/ Methadone (HCl 20 mg/ Methadone HCl 5 mg) 65 mg PO DAILY@ 0600 [facility] Last Admin: 07/12/16 05:45 Dose: 65 mg Methylprednisolone Sodium Succinate (Solu-Medrol -) 40 mg IVPB Q6H-IV [facility] Last Admin: 07/12/16 14:29 Dose: 40 mg Nicotine (Nicoderm Patch -) 21 mg TD DAILY PRN PRN Reason: NICOTINE REPLACEMENT RX Last Admin: 07/12/16 09:08 Dose: 21 mg Ondansetron HCl (Zofran Injection) 4 mg IVPB Q4H PRN PRN Reason: NAUSEA AND/OR VOMITING Pantoprazole Sodium (Protonix -) 40 mg PO DAILY [facility] Last Admin: 07/12/16 09:07 Dose: 40 mg Propranolol HCl (Inderal La -) 120 mg PO DAILY [facility] Last Admin: 07/12/16 09:20 Dose: 120 mg Quetiapine Fumarate (Seroquel -) 300 mg PO [facility] Last Admin: 07/11/16 21:55 Dose: 300 mg Quetiapine Fumarate (Seroquel -) 25 mg PO DAILY PRN PRN Reason: ANXIETY Last Admin: 07/11/16 14:05 Dose: 25 mg Rivaroxaban (Xarelto -) 20 mg PO [facility] Last Admin: 07/11/16 21:55 Dose: 20 mg Fluticasone/Salmeterol (Advair 100mcg/50mcg -) 1 puff IH BID [facility] Last Admin: 07/11/16 21:56 Dose: 1 puff A/P Acute COPD Exacerbation Paroxysmal Atrial Fibrillatin Acute Diastolic CHF h/o Lung Ca Methadone Maintenance h/o PE Lung Nodule - can decrease medrol to q12h dosing - inhaled bronchodilators - O2 as needed - lasix - monitor urine output, creatinine - rate controlled - continue anticoagulation - will need outpt f/u of lung nodule, encouraged compliance with f/u visits
[2016-07-12] MEDS: FLUTICASONE/SALMETEROL 100 MCG/50 MCG DISKUS IH SCH ×2 (15:42→21:15)
[2016-07-12] MEDS: QUEtiapine FUMARATE 25 MG TABLET (FP) PO PRN (15:43)
[2016-07-12] MEDS: QUEtiapine FUMARATE 50 MG TABLET PO SCH (21:09)
[2016-07-12] MEDS: RIVAROXABAN 20 MG TABLET PO SCH (21:10)
[2016-07-13] MEDS ORDERED: METHADONE HCL 10 MG TABLET ONE (05:11)
[2016-07-13] MEDS ORDERED: METHADONE HCL 40 MG DISPERSABLE TABLET ONE (05:12)
[2016-07-13] MEDS ORDERED: METHADONE HCL 5 MG TABLET ONE (05:12)
--- NOTE | 2016-07-13 05:47 | HOSP ---
Subjective - Review of Symptoms Events since last encounter: patient wishing to leave [facility] Subjective: patient very agitated, crying, voicing multiple incoherent complaints about care , not voicing any specific physical complaints, wishing to leave [facility]. General: No: Fatigue, Malaise HEENT: No: Head Aches Cardiovascular: No: Chest Pain, Palpitations, Orthopnea Gastrointestinal: No: Nausea, Vomiting, Abdominal Pain, Diarrhea Musculoskeletal: Yes: No Symptoms Neurological: No: Weakness, Numbness, Confusion Physical Examination Vital Signs: Vital Signs Temperature 98.5 F 07/13/16 01:00 Pulse Rate 79 07/13/16 01:00 Respiratory Rate 20 07/13/16 01:00 Blood Pressure 117/70 07/13/16 01:00 O2 Sat by Pulse Oximetry (%) 94 L 07/12/16 21:00 Constitutional: Yes: Well Nourished, Anxious, Moderate Distress Eyes: Yes: Conjunctiva Clear, PERRL, Tearing HENT: Yes: Atraumatic, Normocephalic Cardiovascular: Yes: Pulse Irregular, S1, S2 Respiratory: Yes: Poor Air Entry Gastrointestinal: Yes: Normal Bowel Sounds Neurological: Yes: Alert, Oriented Psychiatric: Yes: Alert, Oriented, Agitated. No: Suicidal Ideation Labs: CBC, BMP 07/12/16 05:35 07/12/16 05:35 Hospitalist Encounter Assessment: Patient wishing to leave [facility] -dangers of leaving [facility] explained to patient, including poor respiratory status and poorly controlled heart rate. Anxiety treatments offered to patient -patient voiced understanding of dangers bust still wishes to leave [facility]. refuses anxiolytics -patient presented [facility] form but declines to sign -patient decided to stain in hospital for treatment, Visit type - Emergency Visit Emergency Visit: Yes ED Registration Date: 07/08/16 Care time: The patient presented to the Emergency Department on the above date and was hospitalized for further evaluation of their emergent condition. - New Patient This patient is new to me today: Yes Date on this admission: 07/13/16 - Critical Care Critical Care patient: No
[2016-07-13 06:07] LABS: THYROID PEROXIDASE(TPO) 14 IU/mL (0-34)
[2016-07-13] MEDS: ALBUTEROL SO4 2.5/IPRATROPIUM 0.5 INH SOL 3 ML VIAL.NEB. NEB SCH ×4 (06:30→23:37)
[2016-07-13] MEDS: DOCUSATE SODIUM 100 MG CAPSULE (FP) PO SCH ×3 (06:35→21:10)
[2016-07-13] MEDS: METHADONE 40 MG, METHADONE 20 MG, METHADONE 5 MG PO SCH (06:36)
[2016-07-13] MEDS: GABAPENTIN 300 MG CAPSULE (FP) PO SCH ×3 (06:37→21:10)
[2016-07-13 07:46] LABS: MCH 31.2 pg (25.7-33.7); MCHC 32.8 g/dl (32.0-36.0); MEAN CELL VOLUME 95.2 fl (80-96); MEAN PLT VOLUME 8.9 fl (7.5-11.1); PLATELET COUNT 199 K/MM3 (134-434); RDW 14.1 % (11.6-15.6); WHITE BLOOD COUNT 13.9 K/mm3 (4.0-10.0)
[2016-07-13 08:20] LABS: ALBUMIN 2.9 g/dl (3.4-5.0); CALCIUM 7.8 mg/dL (8.5-10.1); COCKROFT - GAULT 73.3975; CREATININE 1.1 mg/dL (0.55-1.02)
[2016-07-13 08:23] LABS: BILIRUBIN,TOTAL 0.3 mg/dL (0.2-1.0); TOT PROT 7.3 g/dl (6.4-8.2)
[2016-07-13] MEDS ORDERED: PT OWN MED DRAWER 7, Y5N ONE (09:16)
[2016-07-13] MEDS: LIDOCAINE 5% TOPICAL PATCH TP SCH (09:18)
[2016-07-13] MEDS: dilTIAZem HCL 60 MG TABLET (FP) PO SCH ×4 (09:20→21:10)
[2016-07-13] MEDS: FUROSEMIDE 40 MG/4 ML INJECTABLE VIAL IVPUSH SCH (09:20)
[2016-07-13] MEDS: PANTOPRAZOLE 40 MG TABLET (FP) PO SCH (09:20)
[2016-07-13] MEDS: NICOTINE 21 MG/24 HOURS TOPICAL PATCH TD PRN (09:20)
[2016-07-13] MEDS: DIGOXIN 0.125 MG TABLET (FP) PO SCH (09:20)
[2016-07-13] MEDS: methylPREDNISolone NA SUCC 40 MG/1 ML VIAL IVPB SCH ×2 (09:20→21:17)
[2016-07-13] MEDS: clonazePAM 0.5 MG TABLET PO SCH ×2 (09:22→21:10)
[2016-07-13] MEDS: levETIRAcetam 500 MG TABLET (FP) PO SCH ×2 (09:22→21:10)
--- NOTE | 2016-07-13 09:22 | PN ---
Progress Note (short form) - Note Progress Note: Feels better No SOB Vital Signs Period Temp Pulse Resp BP Sys/Smyth Pulse Ox Last 24 Hr 98.2 F-98.8 F 79-100 18-22 117-146/65-100 94 PE: AOx3 Neck: Supple, No JVD, No palpable nodules, No bruit HEENT: PERRL, EOMI Lungs: few rhonchi CVS: S1S2 Abd: Benign EXt: +Edema, +stasis changes Neuro: No focal deficit CMP Sodium 139 mmol/L (136-145) 07/13/16 05:40 Potassium 4.5 mmol/L (3.5-5.1) 07/13/16 05:40 Chloride 101 mmol/L (98-107) 07/13/16 05:40 Carbon Dioxide 28 mmol/L (21-32) 07/13/16 05:40 Anion Gap 10 (8-16) 07/13/16 05:40 BUN 32 mg/dL (7-18) H 07/13/16 05:40 Creatinine 1.1 mg/dL (0.55-1.02) H 07/13/16 05:40 Creat Clearance w eGFR 50.01 (>60) 07/13/16 05:40 POC Glucometer 208 UNITS (()) 07/09/16 15:37 Random Glucose 234 mg/dL (74-106) H 07/13/16 05:40 Hemoglobin A1c % 6.4 % (4.8-6.0) H 07/12/16 05:35 Calcium 7.8 mg/dL (8.5-10.1) L 07/13/16 05:40 Magnesium 2.8 mg/dL (1.8-2.4) H 07/11/16 05:35 Total Bilirubin 0.3 mg/dL (0.2-1.0) D 07/13/16 05:40 AST 17 U/L (15-37) D 07/13/16 05:40 ALT 32 U/L (12-78) 07/13/16 05:40 Alkaline Phosphatase 74 U/L (45-117) 07/13/16 05:40 Creatine Kinase 439 IU/L (26-192) H 07/08/16 03:50 Creatine Kinase Index 2.0 % (0.0-5.0) 07/08/16 03:50 CK-MB (CK-2) 8.573 ng/ml (0.5-3.6) H 07/08/16 03:50 Troponin I < 0.02 ng/ml (0.00-0.05) 07/08/16 18:31 B-Natriuretic Peptide 6862.07 pg/ml (5-125) H 07/08/16 03:50 Total Protein 7.3 g/dl (6.4-8.2) 07/13/16 05:40 Albumin 2.9 g/dl (3.4-5.0) L 07/13/16 05:40 TSH 0.10 uIU/ml (0.358-3.74) L D 07/11/16 10:15 Free T4 0.99 ng/dl (0.76-1.46) 07/11/16 10:15 Free T3 1.4 pg/ml (2.0-4.4) L 07/11/16 10:15 Current Medications Generic Name Dose Route Start Last Admin Trade Name Freq PRN Reason Stop Dose Admin Acetaminophen 650 mg 07/08/16 06:03 07/11/16 21:55 Tylenol - PO 650 mg Q6H PRN Administration FEVER OR PAIN Albuterol/Ipratropium 1 amp 07/08/16 06:07 07/11/16 09:10 Duoneb - NEB 1 amp Q6H PRN Administration SHORTNESS OF BREATH Albuterol/Ipratropium 1 amp 07/08/16 12:00 07/13/16 06:30 Duoneb - NEB 1 amp QIDR [facility] Administration Clonazepam 1 mg 07/08/16 10:00 07/12/16 21:08 Klonopin - PO 1 mg BID [facility] Administration Digoxin 0.125 mg 07/09/16 11:45 07/12/16 09:08 Lanoxin - PO 0.125 mg DAILY [facility] Administration Diltiazem HCl 5 mg 07/09/16 00:01 07/09/16 08:22 Cardizem Injection - IVPUSH 5 mg Q4H PRN Administration TACHYCARDIA Diltiazem HCl 90 mg 07/10/16 13:12 07/12/16 21:07 Cardizem - PO 90 mg QID [facility] Administration Docusate Sodium 100 mg 07/08/16 14:00 07/13/16 06:35 Colace - PO Not Given TID [facility] Furosemide 40 mg 07/10/16 13:15 07/12/16 09:08 Lasix Injection - IVPUSH 40 mg DAILY [facility] Administration Gabapentin 300 mg 07/08/16 14:00 07/13/16 06:37 Neurontin - PO 300 mg TID [facility] Administration Levetiracetam 500 mg 07/08/16 10:00 07/12/16 21:08 Keppra - PO 500 mg BID [facility] Administration Lidocaine 1 patch 07/09/16 10:00 07/12/16 09:09 Lidoderm Patch - TP 1 patch DAILY [facility] Administration Methadone HCl 40 mg/ Methadone 65 mg 07/09/16 08:30 07/13/16 06:36 HCl 20 mg/ Methadone HCl 5 mg PO 65 mg DAILY@0600 [facility] Administration Methylprednisolone Sodium Succinate 40 mg 07/12/16 22:00 07/12/16 21:10 Solu-Medrol - IVPB 40 mg BID [facility] Administration Nicotine 21 mg 07/08/16 10:00 07/12/16 09:08 Nicoderm Patch - TD 21 mg DAILY PRN Administration NICOTINE REPLACEMENT RX Ondansetron HCl 4 mg 07/08/16 06:03 Zofran Injection IVPB Q4H PRN NAUSEA AND/OR VOMITING Pantoprazole Sodium 40 mg 07/11/16 10:00 07/12/16 09:07 Protonix - PO 40 mg DAILY [facility] Administration Propranolol HCl 120 mg 07/11/16 11:00 07/12/16 09:20 Inderal La - PO 120 mg DAILY [facility] Administration Quetiapine Fumarate 300 mg 07/08/16 22:00 07/12/16 21:09 Seroquel - PO 300 mg HS [facility] Administration Quetiapine Fumarate 25 mg 07/08/16 09:35 07/12/16 15:43 Seroquel - PO 25 mg DAILY PRN Administration ANXIETY Rivaroxaban 20 mg 07/08/16 22:00 07/12/16 21:10 Xarelto - PO 20 mg HS [facility] Administration Fluticasone/Salmeterol 1 puff 07/08/16 10:00 07/12/16 21:15 Advair 100mcg/50mcg - IH Not Given BID [facility] AP; Abnormal TFT: low TSH with normal FT4, low FT3: probably secondary to IV steroids or nonthyroidal illness. I don't believe the patient is currently hyperthyroid. Most pt with such abnormality have normal thyroid levels when repeated as outpatient so needs no treatment at this point. TPO normal, TSI still pending Will f/u Hyperglycemia; Probably secondary to IV steroids Hb A1c 6.4, Nutrition consult Thyroid nodule: Rpt sonogram as outpatient. f/u with her general neurologist Mehdi Obrien Hand Tremors: Unlikely to be related to her thyroid status H/O seizures Respiratory failure Anxiety
[2016-07-13] MEDS: FLUTICASONE/SALMETEROL 100 MCG/50 MCG DISKUS IH SCH ×2 (09:23→21:19)
[2016-07-13 09:28] LABS: DIGOXIN LEVEL 0.6413 ng/ml (0.8-2.0)
--- NOTE | 2016-07-13 11:03 | PN ---
Progress Note (short form) - Note Progress Note: S: still with sob, cough but better today. no cp, palps, dizziness. Current Medications Generic Name Dose Route Start Last Admin Trade Name Freq PRN Reason Stop Dose Admin Acetaminophen 650 mg 07/08/16 06:03 07/11/16 21:55 Tylenol - PO 650 mg Q6H PRN Administration FEVER OR PAIN Albuterol/Ipratropium 1 amp 07/08/16 06:07 07/11/16 09:10 Duoneb - NEB 1 amp Q6H PRN Administration SHORTNESS OF BREATH Albuterol/Ipratropium 1 amp 07/08/16 12:00 07/13/16 06:30 Duoneb - NEB 1 amp QIDR [facility] Administration Clonazepam 1 mg 07/08/16 10:00 07/13/16 09:22 Klonopin - PO 1 mg BID [facility] Administration Digoxin 0.125 mg 07/09/16 11:45 07/13/16 09:20 Lanoxin - PO 0.125 mg DAILY [facility] Administration Diltiazem HCl 5 mg 07/09/16 00:01 07/09/16 08:22 Cardizem Injection - IVPUSH 5 mg Q4H PRN Administration TACHYCARDIA Diltiazem HCl 90 mg 07/10/16 13:12 07/13/16 09:20 Cardizem - PO 90 mg QID [facility] Administration Docusate Sodium 100 mg 07/08/16 14:00 07/13/16 06:35 Colace - PO Not Given TID [facility] Furosemide 40 mg 07/10/16 13:15 07/13/16 09:20 Lasix Injection - IVPUSH 40 mg DAILY [facility] Administration Gabapentin 300 mg 07/08/16 14:00 07/13/16 06:37 Neurontin - PO 300 mg TID [facility] Administration Levetiracetam 500 mg 07/08/16 10:00 07/13/16 09:22 Keppra - PO 500 mg BID [facility] Administration Lidocaine 1 patch 07/09/16 10:00 07/13/16 09:18 Lidoderm Patch - TP 1 patch DAILY [facility] Administration Methadone HCl 40 mg/ Methadone 65 mg 07/09/16 08:30 07/13/16 06:36 HCl 20 mg/ Methadone HCl 5 mg PO 65 mg DAILY@0600 [facility] Administration Methylprednisolone Sodium Succinate 40 mg 07/12/16 22:00 07/13/16 09:20 Solu-Medrol - IVPB 40 mg BID [facility] Administration Nicotine 21 mg 07/08/16 10:00 07/13/16 09:20 Nicoderm Patch - TD 21 mg DAILY PRN Administration NICOTINE REPLACEMENT RX Ondansetron HCl 4 mg 07/08/16 06:03 Zofran Injection IVPB Q4H PRN NAUSEA AND/OR VOMITING Pantoprazole Sodium 40 mg 07/11/16 10:00 07/13/16 09:20 Protonix - PO 40 mg DAILY [facility] Administration Propranolol HCl 120 mg 07/11/16 11:00 07/13/16 09:22 Inderal La - PO 120 mg DAILY [facility] Administration Quetiapine Fumarate 300 mg 07/08/16 22:00 07/12/16 21:09 Seroquel - PO 300 mg HS [facility] Administration Quetiapine Fumarate 25 mg 07/08/16 09:35 07/12/16 15:43 Seroquel - PO 25 mg DAILY PRN Administration ANXIETY Rivaroxaban 20 mg 07/08/16 22:00 07/12/16 21:10 Xarelto - PO 20 mg HS [facility] Administration Fluticasone/Salmeterol 1 puff 07/08/16 10:00 07/13/16 09:23 Advair 100mcg/50mcg - IH Not Given BID [facility] Vital Signs Period Temp Pulse Resp BP Sys/Smyth Pulse Ox Last 24 Hr 98.2 F-98.8 F 79-100 18-22 117-146/65-100 94 Constitutional: Yes: No Distress Eyes: No: Sclera Icterus HENT: No: Nasal Congestion Respiratory: Yes: Rhonchi, mild Wheezes (diffuse), nl eff No: Accessory Muscle Use, Rales Gastrointestinal: Yes: Normal Bowel Sounds. No: Distention, Hepatomegaly, Palpable Mass, Tenderness Cardiovascular: Yes: Pulse Irregular JVD: No Heart Sounds: Yes: irreg, rr S1, S2. No: Gallop Murmur: No: Systolic Murmur, Diastolic Murmur Extremities: No: Cold, Cyanosis Edema: trace le edema bl Integumentary: No: Jaundice diaphoresis Neurological: Yes: Alert, Oriented (x3) Psychiatric: No: Agitated CBC, BMP 07/13/16 05:40 07/13/16 05:40 ekg 5/7: afib 143 bpm; nl axis; no path q's; no ST-T changes tele: afib, vr controlled mibi 2012: no ischemia Echo 07/2016: nl lv/rv. 1+ lae. mild-mod mac, 1+ mr/tr Echo 12/2015: nl LVSF; nl RV; mild MR/TR; RVSP 30-40 a/p: 66 f smoker with hx pafib, hx pe/dvt, seizures and frequent falls with injury, copd, htn, anxiety, smoking, lung ca s/p resection 2012, RA, adrenal adenoma, h/o hep c, heroin use on methadone, Buergers disaese, who presents with sob/afib atrial fibrillation -last saw lydia in office 2013: sinus resting HR 54, ongoing palpitations ( not all correlated with afib on prior monitor per his notes), could not incr AVN blockers further -pt does not seem to feel her afib as she denies any palpitations here or at home on DOA -here with rvr initially. now on dilt, dig, inderal and HR controlled. Cont same for now. HR may improve as copd improves as well and she may not need as much rate meds in future. -if rapid AF tx is complicated by sinus shazia (i.e. SSS), need to consider rhythm control (flecainide vs ablation), though she previously deferred ablation with dr freeman -Dr. Hollis spoke with pmd dr gayle gonzalez --> she is frequently noncompliant and has been there mult times since 11/17 (including 04/20 and 06/18). no ekg's done but each of those times her HR was 70s-80s. given she has always been rapid when in afib here in past, she was extremely likely in sinus as recently as 06/18. -CHADS VASC 2--has been maintained on AC (xarelto at home), states she has not missed a single dose. stopped asa. patient endorsing recent frequent seizures, frequent falls. Noted to have both acute and old rib fractures on admission xrays. Also endorses recent ankle injury from fall. Per report and discussion with hospitalist, patient is also frequently non-compliant. Would recommend discussions with neuro and pmd regarding fall risk and risk/benefit of AC in this setting (note patient also on AC for h/o PE, unknown if provoked or unprovoked). sob, copd, acute diastolic CHF -prior dry weights 179-180 when hospitalized here 2014 and 12/2015 -current wt 196, ? timing of this trend -has constant sob/wheezing from copd per pt--? worsening at home 1-2 wks ago due to chf (also new pedal edema then) -ER cxr reviewed: incr'd interstitial marking vs prior ? interstitial pulm edema pattern (perihilar predominance noted), probable vascular redistribution ( no effusions) -BNP 6K, from 900 baseline -will cont with lasix 40 iv qd for now since she is still getting steroids which is likely causing some fluid retention, can change back to home dose 20 po qd when on po steroids. Still with some wheezing/stephens but improved, remains on iv steroids. -at risk for tachy-CMP from review of prior notes-- repeat echo here with nl lv function. 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 Ongoing mgm't per pulm/pmd h/o PE: -? details of provoked vs unprovoked, results of hypercoag w/u -on xarelto. See discussion above. HTN: -controlled on current meds h/o heroin abuse: -on methadone maintenance dc tele
--- NOTE | 2016-07-13 11:53 | PN ---
Progress Note, Physician History of Present Illness: pulmonary alert,feeling better,less dyspneic - Current Medication List Current Medications: Active Medications Acetaminophen (Tylenol -) 650 mg PO Q6H PRN PRN Reason: FEVER OR PAIN Last Admin: 07/11/16 21:55 Dose: 650 mg Albuterol/Ipratropium (Duoneb -) 1 amp NEB Q6H PRN PRN Reason: SHORTNESS OF BREATH Last Admin: 07/11/16 09:10 Dose: 1 amp Albuterol/Ipratropium (Duoneb -) 1 amp NEB QIDR [facility] Last Admin: 07/13/16 06:30 Dose: 1 amp Clonazepam (Klonopin -) 1 mg PO BID [facility] Last Admin: 07/13/16 09:22 Dose: 1 mg Digoxin (Lanoxin -) 0.125 mg PO DAILY [facility] Last Admin: 07/13/16 09:20 Dose: 0.125 mg Diltiazem HCl (Cardizem Injection -) 5 mg IVPUSH Q4H PRN PRN Reason: TACHYCARDIA Last Admin: 07/09/16 08:22 Dose: 5 mg Diltiazem HCl (Cardizem -) 90 mg PO QID [facility] Last Admin: 07/13/16 09:20 Dose: 90 mg Docusate Sodium (Colace -) 100 mg PO TID [facility] Last Admin: 07/13/16 06:35 Dose: Not Given Furosemide (Lasix Injection -) 40 mg IVPUSH DAILY [facility] Last Admin: 07/13/16 09:20 Dose: 40 mg Gabapentin (Neurontin -) 300 mg PO TID [facility] Last Admin: 07/13/16 06:37 Dose: 300 mg Levetiracetam (Keppra -) 500 mg PO BID [facility] Last Admin: 07/13/16 09:22 Dose: 500 mg Lidocaine (Lidoderm Patch -) 1 patch TP DAILY [facility] Last Admin: 07/13/16 09:18 Dose: 1 patch Methadone HCl 40 mg/ Methadone (HCl 20 mg/ Methadone HCl 5 mg) 65 mg PO DAILY@ 0600 [facility] Last Admin: 07/13/16 06:36 Dose: 65 mg Methylprednisolone Sodium Succinate (Solu-Medrol -) 40 mg IVPB BID [facility] Last Admin: 07/13/16 09:20 Dose: 40 mg Nicotine (Nicoderm Patch -) 21 mg TD DAILY PRN PRN Reason: NICOTINE REPLACEMENT RX Last Admin: 07/13/16 09:20 Dose: 21 mg Ondansetron HCl (Zofran Injection) 4 mg IVPB Q4H PRN PRN Reason: NAUSEA AND/OR VOMITING Pantoprazole Sodium (Protonix -) 40 mg PO DAILY [facility] Last Admin: 07/13/16 09:20 Dose: 40 mg Propranolol HCl (Inderal La -) 120 mg PO DAILY [facility] Last Admin: 07/13/16 09:22 Dose: 120 mg Quetiapine Fumarate (Seroquel -) 300 mg PO HS [facility] Last Admin: 07/12/16 21:09 Dose: 300 mg Quetiapine Fumarate (Seroquel -) 25 mg PO DAILY PRN PRN Reason: ANXIETY Last Admin: 07/12/16 15:43 Dose: 25 mg Rivaroxaban (Xarelto -) 20 mg PO HS [facility] Last Admin: 07/12/16 21:10 Dose: 20 mg Fluticasone/Salmeterol (Advair 100mcg/50mcg -) 1 puff IH BID [facility] Last Admin: 07/13/16 09:23 Dose: Not Given - Objective Vital Signs: Vital Signs Temperature 98.2 F 07/13/16 08:00 Pulse Rate 88 07/13/16 09:20 Respiratory Rate 18 07/13/16 08:00 Blood Pressure 146/68 07/13/16 08:00 O2 Sat by Pulse Oximetry (%) 94 L 07/12/16 21:00 Constitutional: Yes: Well Nourished, Calm Eyes: Yes: WNL HENT: Yes: WNL Neck: Yes: WNL Cardiovascular: Yes: Pulse Irregular, S1, S2 Respiratory: Yes: Rhonchi (few rhonchi) Gastrointestinal: Yes: Normal Bowel Sounds, Soft Extremities: Yes: WNL Edema: Yes Labs: CBC, BMP 07/13/16 05:40 07/13/16 05:40 INR, PTT INR 1.27 (0.82-1.09) H 07/08/16 03:50 Assessment/Plan A/P Acute COPD Exacerbation improving Paroxysmal Atrial Fibrillation Acute Diastolic CHF h/o Lung Ca Methadone Maintenance h/o PE Lung Nodule - Prednisone 60mg daily - inhaled bronchodilators - O2 as needed - lasix - monitor urine output, creatinine - rate controlled - anticoagulation - outpt f/u of lung nodule, encouraged compliance with f/u visits - outpatient pulmonary rehab DR LOWE
[2016-07-13] MEDS: ALBUTEROL SO4 2.5/IPRATROPIUM 0.5 INH SOL 3 ML VIAL.NEB. NEB PRN (14:51)
[2016-07-13] MEDS: QUEtiapine FUMARATE 25 MG TABLET (FP) PO PRN (16:18)
--- NOTE | 2016-07-13 19:24 | PN ---
Teaching Attending Note Name of Resident: Alisha Grossman ATTENDING PHYSICIAN STATEMENT I saw and evaluated the patient. I reviewed the resident's note and discussed the case with the resident. I agree with the resident's findings and plan as documented. SUBJECTIVE: Patient is feeling better today , 94% on room air. OBJECTIVE: Vital Signs Temperature 99.6 F 07/13/16 18:00 Pulse Rate 72 07/13/16 18:00 Respiratory Rate 19 07/13/16 18:00 Blood Pressure 152/92 07/13/16 18:00 O2 Sat by Pulse Oximetry (%) 90 L 07/13/16 12:10 CBCD WBC 13.9 K/mm3 (4.0-10.0) H 07/13/16 05:40 RBC 4.71 M/mm3 (3.60-5.2) 07/13/16 05:40 Hgb 14.7 GM/dL (10.7-15.3) 07/13/16 05:40 Hct 44.8 % (32.4-45.2) 07/13/16 05:40 MCV 95.2 fl (80-96) 07/13/16 05:40 MCHC 32.8 g/dl (32.0-36.0) 07/13/16 05:40 RDW 14.1 % (11.6-15.6) 07/13/16 05:40 Plt Count 199 K/MM3 (134-434) 07/13/16 05:40 MPV 8.9 fl (7.5-11.1) 07/13/16 05:40 CMP Sodium 139 mmol/L (136-145) 07/13/16 05:40 Potassium 4.5 mmol/L (3.5-5.1) 07/13/16 05:40 Chloride 101 mmol/L (98-107) 07/13/16 05:40 Carbon Dioxide 28 mmol/L (21-32) 07/13/16 05:40 Anion Gap 10 (8-16) 07/13/16 05:40 BUN 32 mg/dL (7-18) H 07/13/16 05:40 Creatinine 1.1 mg/dL (0.55-1.02) H 07/13/16 05:40 Creat Clearance w eGFR 50.01 (>60) 07/13/16 05:40 Random Glucose 234 mg/dL (74-106) H 07/13/16 05:40 Calcium 7.8 mg/dL (8.5-10.1) L 07/13/16 05:40 Total Bilirubin 0.3 mg/dL (0.2-1.0) D 07/13/16 05:40 AST 17 U/L (15-37) D 07/13/16 05:40 ALT 32 U/L (12-78) 07/13/16 05:40 Alkaline Phosphatase 74 U/L (45-117) 07/13/16 05:40 Total Protein 7.3 g/dl (6.4-8.2) 07/13/16 05:40 Albumin 2.9 g/dl (3.4-5.0) L 07/13/16 05:40 CARDIAC ENZYMES Creatine Kinase 439 IU/L (26-192) H 07/08/16 03:50 Troponin I < 0.02 ng/ml (0.00-0.05) 07/08/16 18:31 Current Medications Generic Name Dose Route Start Last Admin Trade Name Freq PRN Reason Stop Dose Admin Acetaminophen 650 mg 07/08/16 06:03 07/11/16 21:55 Tylenol - PO 650 mg Q6H PRN Administration FEVER OR PAIN Albuterol/Ipratropium 1 amp 07/08/16 06:07 07/13/16 14:51 Duoneb - NEB 1 amp Q6H PRN Administration SHORTNESS OF BREATH Albuterol/Ipratropium 1 amp 07/08/16 12:00 07/13/16 17:31 Duoneb - NEB Not Given QIDR [facility] Clonazepam 1 mg 07/08/16 10:00 07/13/16 09:22 Klonopin - PO 1 mg BID [facility] Administration Digoxin 0.125 mg 07/09/16 11:45 07/13/16 09:20 Lanoxin - PO 0.125 mg DAILY [facility] Administration Diltiazem HCl 5 mg 07/09/16 00:01 07/09/16 08:22 Cardizem Injection - IVPUSH 5 mg Q4H PRN Administration TACHYCARDIA Diltiazem HCl 90 mg 07/10/16 13:12 07/13/16 17:45 Cardizem - PO 90 mg QID [facility] Administration Docusate Sodium 100 mg 07/08/16 14:00 07/13/16 14:10 Colace - PO Not Given TID [facility] Furosemide 40 mg 07/10/16 13:15 07/13/16 09:20 Lasix Injection - IVPUSH 40 mg DAILY [facility] Administration Gabapentin 300 mg 07/08/16 14:00 07/13/16 14:08 Neurontin - PO 300 mg TID [facility] Administration Levetiracetam 500 mg 07/08/16 10:00 07/13/16 09:22 Keppra - PO 500 mg BID [facility] Administration Lidocaine 1 patch 07/09/16 10:00 07/13/16 09:18 Lidoderm Patch - TP 1 patch DAILY [facility] Administration Methadone HCl 40 mg/ Methadone 65 mg 07/09/16 08:30 07/13/16 06:36 HCl 20 mg/ Methadone HCl 5 mg PO 65 mg DAILY@0600 [facility] Administration Methylprednisolone Sodium Succinate 40 mg 07/12/16 22:00 07/13/16 09:20 Solu-Medrol - IVPB 40 mg BID [facility] Administration Nicotine 21 mg 07/08/16 10:00 07/13/16 09:20 Nicoderm Patch - TD 21 mg DAILY PRN Administration NICOTINE REPLACEMENT RX Ondansetron HCl 4 mg 07/08/16 06:03 Zofran Injection IVPB Q4H PRN NAUSEA AND/OR VOMITING Pantoprazole Sodium 40 mg 07/11/16 10:00 07/13/16 09:20 Protonix - PO 40 mg DAILY [facility] Administration Propranolol HCl 120 mg 07/11/16 11:00 07/13/16 09:22 Inderal La - PO 120 mg DAILY [facility] Administration Quetiapine Fumarate 300 mg 07/08/16 22:00 07/12/16 21:09 Seroquel - PO 300 mg HS [facility] Administration Quetiapine Fumarate 25 mg 07/08/16 09:35 07/13/16 16:18 Seroquel - PO 25 mg DAILY PRN Administration ANXIETY Rivaroxaban 20 mg 07/08/16 22:00 07/12/16 21:10 Xarelto - PO 20 mg HS [facility] Administration Fluticasone/Salmeterol 1 puff 07/08/16 10:00 07/13/16 09:23 Advair 100mcg/50mcg - IH Not Given BID [facility] Home Medications Medication Instructions Recorded Clonazepam [KlonoPIN -] 1 mg PO BID 10/19/14 Methadone [Dolophine -] 65 mg PO DAILY 10/19/14 Tiotropium [place] [Spiriva] 1 inh PO BID 10/19/14 Quetiapine Fumarate [Seroquel -] 300 mg PO HS 02/05/15 Aspirin Coated [Ecotrin -] 81 mg PO DAILY tablet.ec 09/22/15 Docusate Sodium [Colace -] 100 mg PO TID capsule 09/22/15 Albuterol Sulfate Inhaler - 2 inh PO Q4H PRN 12/08/15 [Ventolin HFA Inhaler -] Nicotine Patch [Nicoderm Patch -] 1 patch TD DAILY PRN 12/08/15 Rivaroxaban [Xarelto -] 20 mg PO DAILY 12/10/15 Fluticasone/Salmeterol [Advair 1 puff IN BID 07/08/16 250-50 Diskus] Furosemide [Lasix] 20 mg PO DAILY 07/08/16 Gabapentin [Neurontin] 300 mg PO TID 07/08/16 Levetiracetam [Keppra -] 500 mg PO BID 07/08/16 Metoprolol Succinate [Toprol Xl] 50 mg PO DAILY 07/08/16 Quetiapine Fumarate [Seroquel -] 25 mg PO DAILY PRN 07/08/16 Lungs: GAE BL, wheeze BL ASSESSMENT AND PLAN: 66 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 C, thyroid nodules, who presented with worsening SOB x 1 week, wheezing , fever and increased sputum production. She was found to have acute COPD exacerbation, with Afib in RVR. # A fib with rate controlled now and this morning the rate is in 70's , on xarelto( started as an outpatient) on digoxin and cardizem ( started here ) for rate control. Also added Inderal LA 120mg daily. discontinued Toprol added Inderal LA continue for now and continue to telemetry monitoring. discussed with the registered phlebotomist part time. # Acute hypoxic respiratory failure is feeling better today , 94% on room air but continues to wheeze less than before with GAE due to COPD exacerbation/ diastolic heart failure. On IV steroids continue , Duo-Nebs QID and PRN, Bipap at night as needed , on IV lasix , advair . completed 3 day course of IV ceftriaxone day 05/04 (no evidence of PNA) Pulmonary consult appreciated. # Acute diastolic heart failure , due to Afib rate controlled now : on IV lasix 40 daily , echo reviewed #Hx of Hyperthryroidism as per patient: As per ,her increased rate is not due to her hyperthyroidism . we don't have the thyroid w/u from her physician, patient will follow either with her PMD or as an out patient for further w/u # L sided rib Fx : on lidocaine patch for pain ; on methadone program will not give additional narcotics, as she looks comfortable and will affect her breathing #H/o Seizure , reports having multiple seizures last month . 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 will cont her Keppra ;will try to get 4-day EEG report from her neurologist if possible since she had done it as an outpatient. #Hx of heroin abuse on methadone program # DVT px : on xarelto
--- NOTE | 2016-07-13 19:26 | PN ---
Physical Exam: SUBJECTIVE: Patient seen and examined OBJECTIVE: Vital Signs Period Temp Pulse Resp BP Sys/Smyth Pulse Ox Last 24 Hr 98.2 F-99.6 F 72-100 18-22 117-163/68-100 90-94 GENERAL: The patient is awake, alert, and fully oriented, in no acute distress. HEAD: Normal with no signs of trauma. EYES: PERRL, extraocular movements intact, sclera anicteric, conjunctiva clear. No ptosis. ENT: Ears normal, nares patent, oropharynx clear without exudates, moist mucous membranes. NECK: Trachea midline, full range of motion, supple. LUNGS: Breath sounds equal, clear to auscultation bilaterally, no wheezes, no crackles, no accessory muscle use. HEART: Regular rate and rhythm, S1, S2 without murmur, rub or gallop. ABDOMEN: Soft, nontender, nondistended, normoactive bowel sounds, no guarding, no rebound, no hepatosplenomegaly, no masses. EXTREMITIES: 2+ pulses, warm, well-perfused, no edema. NEUROLOGICAL: Cranial nerves II through XII grossly intact. Normal speech, gait not observed. PSYCH: Normal mood, normal affect. SKIN: Warm, dry, normal turgor, no rashes or lesions noted Laboratory Results - last 24 hr 07/12/16 07/13/16 07/13/16 05:35 05:40 05:40 WBC 13.9 H RBC 4.71 Hgb 14.7 Hct 44.8 MCV 95.2 MCHC 32.8 RDW 14.1 Plt Count 199 MPV 8.9 Sodium 139 Potassium 4.5 Chloride 101 Carbon Dioxide 28 Anion Gap 10 BUN 32 H Creatinine 1.1 H Creat Clearance w eGFR 50.01 Random Glucose 234 H Calcium 7.8 L Total Bilirubin 0.3 D AST 17 D ALT 32 Alkaline Phosphatase 74 Total Protein 7.3 Albumin 2.9 L Digoxin 0.6413 L Thyroid Peroxidase Ab 14 07/13/16 06:00 WBC RBC Hgb Hct MCV MCHC RDW Plt Count MPV Sodium Potassium Chloride Carbon Dioxide Anion Gap BUN Creatinine Creat Clearance w eGFR Random Glucose Calcium Total Bilirubin AST ALT Alkaline Phosphatase Total Protein Albumin Digoxin Cancelled Thyroid Peroxidase Ab Active Medications Generic Name Dose Route Start Last Admin Trade Name Freq PRN Reason Stop Dose Admin Acetaminophen 650 mg 07/08/16 06:03 07/11/16 21:55 Tylenol - PO 650 mg Q6H PRN Administration FEVER OR PAIN Albuterol/Ipratropium 1 amp 07/08/16 06:07 07/13/16 14:51 Duoneb - NEB 1 amp Q6H PRN Administration SHORTNESS OF BREATH Albuterol/Ipratropium 1 amp 07/08/16 12:00 07/13/16 17:31 Duoneb - NEB Not Given QIDR [facility] Clonazepam 1 mg 07/08/16 10:00 07/13/16 09:22 Klonopin - PO 1 mg BID [facility] Administration Digoxin 0.125 mg 07/09/16 11:45 07/13/16 09:20 Lanoxin - PO 0.125 mg DAILY [facility] Administration Diltiazem HCl 5 mg 07/09/16 00:01 07/09/16 08:22 Cardizem Injection - IVPUSH 5 mg Q4H PRN Administration TACHYCARDIA Diltiazem HCl 90 mg 07/10/16 13:12 07/13/16 17:45 Cardizem - PO 90 mg QID [facility] Administration Docusate Sodium 100 mg 07/08/16 14:00 07/13/16 14:10 Colace - PO Not Given TID [facility] Furosemide 40 mg 07/10/16 13:15 07/13/16 09:20 Lasix Injection - IVPUSH 40 mg DAILY [facility] Administration Gabapentin 300 mg 07/08/16 14:00 07/13/16 14:08 Neurontin - PO 300 mg TID [facility] Administration Levetiracetam 500 mg 07/08/16 10:00 07/13/16 09:22 Keppra - PO 500 mg BID [facility] Administration Lidocaine 1 patch 07/09/16 10:00 07/13/16 09:18 Lidoderm Patch - TP 1 patch DAILY [facility] Administration Methadone HCl 40 mg/ Methadone 65 mg 07/09/16 08:30 07/13/16 06:36 HCl 20 mg/ Methadone HCl 5 mg PO 65 mg DAILY@0600 [facility] Administration Methylprednisolone Sodium Succinate 40 mg 07/12/16 22:00 07/13/16 09:20 Solu-Medrol - IVPB 40 mg BID [facility] Administration Nicotine 21 mg 07/08/16 10:00 07/13/16 09:20 Nicoderm Patch - TD 21 mg DAILY PRN Administration NICOTINE REPLACEMENT RX Ondansetron HCl 4 mg 07/08/16 06:03 Zofran Injection IVPB Q4H PRN NAUSEA AND/OR VOMITING Pantoprazole Sodium 40 mg 07/11/16 10:00 07/13/16 09:20 Protonix - PO 40 mg DAILY [facility] Administration Propranolol HCl 120 mg 07/11/16 11:00 07/13/16 09:22 Inderal La - PO 120 mg DAILY [facility] Administration Quetiapine Fumarate 300 mg 07/08/16 22:00 07/12/16 21:09 Seroquel - PO 300 mg HS [facility] Administration Quetiapine Fumarate 25 mg 07/08/16 09:35 07/13/16 16:18 Seroquel - PO 25 mg DAILY PRN Administration ANXIETY Rivaroxaban 20 mg 07/08/16 22:00 07/12/16 21:10 Xarelto - PO 20 mg HS [facility] Administration Fluticasone/Salmeterol 1 puff 07/08/16 10:00 07/13/16 09:23 Advair 100mcg/50mcg - IH Not Given BID [facility] ASSESSMENT/PLAN: 07/11/[address]: Negative for any acute pathology 07/11/[address]: Impression: Status post left upper partial lobectomy with multiple surgical sutures in the left hilum Stable tiny right upper and left lung base nodule. Interval focal low-attenuation nodular opacity in the right middle lobe abutting the fissure on axial image 48 measuring 7 mm for which further evaluation with PET/CT or follow-up CT scan of the chest in 3 months is recommended in view of the clinical history of lung cancer CXR : Left rib fracture. No evidence of pneumonia. ASSESSMENT/PLAN: Patient is a 65 year old lady with h/o COPD, RA, Lung ca with local reoccurance , benign adrenal mass, a-fib, DVT, hypotension, hep. C, thyriod nodules, PVD, HTN who BIB EMS with SOB. # Acute hypoxic respiratory failure-Improving Patient presented with SOB and is still complaining of shortness of breath. Still congested but No pneumonia on CXR CT Chest was done on 07/11/16, report mentioned above Patient denies using Bipap at night Start Duonebs, supp O2, IV Steroids 40mg Q6H Continue home Lasix IV 40 Daily Patient was getting IV Ceftriaxone which was stopped at Day 3 as there are no signs of infection or pneumonia. Respiratory therapy requested Plan was to discharge her today since her breathing improved this morning, pre and post exercise saturation was 90%, blood work looked normal but in the afternoon patient's saturation started dropping to 82 % in 2L which improved after treatment and 3L of nasal canula. Hence didn't discharge the patient today. # AFIB w RVR - Rate controlled (today) with acute diastolic heart failure On IV Diltiazem 5mg IV PRN Continue Rivaroxaban 20mg- since patient has a h/o frequent falls, risk of incracranial bleed is high. Fall precautions. As per cardiology, plan is ? Flecainide vs ablation if rate is not controlled. Continuous Cardiac monitoring Cardiology consult appreciated. Daily Weights I's and O's # Atypical chest pain Likely due to left rib fracture s/p mechanical fall a couple of weeks ago. Already on Methadone and Lidocaine patch hence will not give additional narcotics. # HTN Metoprolol stopped and started on Digoxin. Digoxin level pending. # Hx of heroin abuse On Methadone 65mg Daily (dose confirmed) # Hx of Seizures Last seizure was 2 weeks ago despite being on keppra 500mg BID No seizure activity noted this admission. Confirmed that patient is non compliant with medication. Neurology consult appreciated Fall precautions CT head negative for any acute pathology Patient recently had an EEG done. Records of PCP's office received but don't have EEG report. Will try to get from her neurologist. Physical therapy requested # Tremors of extremities likely metabolic vs infectious induced vs less likely Essential Tremor. Tremors less likely due to Hyperthyroidism # Thyroid nodules Patient mentions that she has gained weight since last year. She did have thyroid ultrasound as outpatient but hasn't had any biopsy. 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 Free T4 normal, T3 Decreased and TSH decreased Started her on Propanolol 120mg Daily. (Discussed with Dr. Chung and Dr. Encarnacion) Endocrinology consult appreciated Would consider thyroid ultrasound as outpatient. # PVD Continue ASA # H/o anxiety cont seroquel . 300 HS and 25 q AM PRN Clonazepam 1mg PO BID # Active smoker Smoking cessation counseling Nicotine patch # Prophylaxis For DVT: on rivaroxaban 20mg HS. For GI: not indicated # FEN Not on IV fluids Electrolytes to be repeated in am Low salt diet # Code Status: Full Code # Dispo- Admitted in Tele. Duration of stay unknown. Illness, Investigation and Plan of care explained to the patient. She verbalized understanding. Case seen and discussed with Dr. Encarnacion. Visit type - Emergency Visit Emergency Visit: Yes ED Registration Date: 07/08/16 Care time: The patient presented to the Emergency Department on the above date and was hospitalized for further evaluation of their emergent condition. - New Patient This patient is new to me today: No - Critical Care Critical Care patient: No
[2016-07-13] MEDS: ACETAMINOPHEN 325 MG TABLET (FP) PO PRN (19:44)
[2016-07-13] MEDS: RIVAROXABAN 20 MG TABLET PO SCH (21:10)
[2016-07-13] MEDS: QUEtiapine FUMARATE 50 MG TABLET PO SCH (21:11)
[2016-07-14] MEDS ORDERED: METHADONE HCL 40 MG DISPERSABLE TABLET ONE (05:29)
[2016-07-14] MEDS ORDERED: METHADONE HCL 5 MG TABLET ONE (05:29)
[2016-07-14] MEDS ORDERED: METHADONE HCL 10 MG TABLET ONE (05:29)
[2016-07-14] MEDS: GABAPENTIN 300 MG CAPSULE (FP) PO SCH ×3 (05:40→21:51)
[2016-07-14] MEDS: METHADONE 40 MG, METHADONE 20 MG, METHADONE 5 MG PO SCH (05:40)
[2016-07-14] MEDS: DOCUSATE SODIUM 100 MG CAPSULE (FP) PO SCH ×3 (05:59→21:50)
[2016-07-14] MEDS: ALBUTEROL SO4 2.5/IPRATROPIUM 0.5 INH SOL 3 ML VIAL.NEB. NEB SCH ×5 (06:36→23:30)
[2016-07-14 08:26] LABS: MCH 31.1 pg (25.7-33.7); MCHC 32.8 g/dl (32.0-36.0); MEAN CELL VOLUME 94.9 fl (80-96); MEAN PLT VOLUME 8.8 fl (7.5-11.1); PLATELET COUNT 210 K/MM3 (134-434); RDW 14.2 % (11.6-15.6); WHITE BLOOD COUNT 16.3 K/mm3 (4.0-10.0)
[2016-07-14 08:55] LABS: ALBUMIN 2.9 g/dl (3.4-5.0); BILIRUBIN,TOTAL 0.4 mg/dL (0.2-1.0); CALCIUM 7.9 mg/dL (8.5-10.1); COCKROFT - GAULT 80.7415
[2016-07-14] MEDS ORDERED: PT OWN MED DRAWER 7, Y5N ONE ×2 (09:20→21:03)
[2016-07-14] MEDS: FLUTICASONE/SALMETEROL 100 MCG/50 MCG DISKUS IH SCH ×2 (09:22→21:49)
[2016-07-14] MEDS: dilTIAZem HCL 60 MG TABLET (FP) PO SCH ×4 (09:23→21:49)
[2016-07-14] MEDS: levETIRAcetam 500 MG TABLET (FP) PO SCH ×2 (09:23→21:50)
[2016-07-14] MEDS: clonazePAM 0.5 MG TABLET PO SCH ×2 (09:23→21:50)
[2016-07-14] MEDS: FUROSEMIDE 40 MG/4 ML INJECTABLE VIAL IVPUSH SCH (09:24)
[2016-07-14] MEDS: methylPREDNISolone NA SUCC 40 MG/1 ML VIAL IVPB SCH ×2 (09:24→21:52)
[2016-07-14] MEDS: PANTOPRAZOLE 40 MG TABLET (FP) PO SCH (09:24)
[2016-07-14] MEDS: DIGOXIN 0.125 MG TABLET (FP) PO SCH (09:24)
[2016-07-14] MEDS: LIDOCAINE 5% TOPICAL PATCH TP SCH (09:25)
[2016-07-14] MEDS: NICOTINE 21 MG/24 HOURS TOPICAL PATCH TD PRN (09:38)
--- NOTE | 2016-07-14 10:54 | PN ---
Progress Note (short form) - Note Progress Note: S: still with sob, cough. no cp, palps, dizziness. Current Medications Generic Name Dose Route Start Last Admin Trade Name Freq PRN Reason Stop Dose Admin Acetaminophen 650 mg 07/08/16 06:03 07/13/16 19:44 Tylenol - PO 650 mg Q6H PRN Administration FEVER OR PAIN Albuterol/Ipratropium 1 amp 07/08/16 06:07 07/13/16 14:51 Duoneb - NEB 1 amp Q6H PRN Administration SHORTNESS OF BREATH Albuterol/Ipratropium 1 amp 07/08/16 12:00 07/14/16 06:36 Duoneb - NEB 1 amp QIDR LORRIE Administration Clonazepam 1 mg 07/08/16 10:00 07/14/16 09:23 Klonopin - PO 1 mg BID LORRIE Administration Digoxin 0.125 mg 07/09/16 11:45 07/14/16 09:24 Lanoxin - PO 0.125 mg DAILY LORRIE Administration Diltiazem HCl 5 mg 07/09/16 00:01 07/09/16 08:22 Cardizem Injection - IVPUSH 5 mg Q4H PRN Administration TACHYCARDIA Diltiazem HCl 90 mg 07/10/16 13:12 07/14/16 09:23 Cardizem - PO 90 mg QID LORRIE Administration Docusate Sodium 100 mg 07/08/16 14:00 07/14/16 05:59 Colace - PO Not Given TID LORRIE Furosemide 40 mg 07/10/16 13:15 07/14/16 09:24 Lasix Injection - IVPUSH 40 mg DAILY LORRIE Administration Gabapentin 300 mg 07/08/16 14:00 07/14/16 05:40 Neurontin - PO 300 mg TID LORRIE Administration Levetiracetam 500 mg 07/08/16 10:00 07/14/16 09:23 Keppra - PO 500 mg BID LOR[facility]E Administration Lidocaine 1 patch 07/09/16 10:00 07/14/16 09:25 Lidoderm Patch - TP 1 patch DAILY L[facility]E Administration Methadone HCl 40 mg/ Methadone 65 mg 07/09/16 08:30 07/14/16 05:40 HCl 20 mg/ Methadone HCl 5 mg PO 65 mg DAILY@0600 LORRIE Administration Methylprednisolone Sodium Succinate 40 mg 07/12/16 22:00 07/14/16 09:24 Solu-Medrol - IVPB 40 mg BID LORRIE Administration Nicotine 21 mg 07/08/16 10:00 07/14/16 09:38 Nicoderm Patch - TD 21 mg DAILY PRN Administration NICOTINE REPLACEMENT RX Ondansetron HCl 4 mg 07/08/16 06:03 Zofran Injection IVPB Q4H PRN NAUSEA AND/OR VOMITING Pantoprazole Sodium 40 mg 07/11/16 10:00 07/14/16 09:24 Protonix - PO 40 mg DAILY LORRIE Administration Propranolol HCl 120 mg 07/11/16 11:00 07/14/16 09:23 Inderal La - PO 120 mg DAILY LORRIE Administration Quetiapine Fumarate 300 mg 07/08/16 22:00 07/13/16 21:11 Seroquel - PO 300 mg HS L[facility]RIE Administration Quetiapine Fumarate 25 mg 07/08/16 09:35 07/13/16 16:18 Seroquel - PO 25 mg DAILY PRN Administration ANXIETY Rivaroxaban 20 mg 07/08/16 22:00 07/13/16 21:10 Xarelto - PO 20 mg HS LORRIE Administration Fluticasone/Salmeterol 1 puff 07/08/16 10:00 07/14/16 09:22 Advair 100mcg/50mcg - IH 1 puff BID L[facility]E Administration Vital Signs Period Temp Pulse Resp BP Sys/Smyth Pulse Ox Last 24 Hr 97.8 F-99.6 F 72-94 16-19 120-163/80-97 90-91 Constitutional: Yes: No Distress Eyes: No: Sclera Icterus HENT: No: Nasal Congestion Respiratory: Yes: Rhonchi, mild Wheezes (diffuse), nl eff No: Accessory Muscle Use, Rales Gastrointestinal: Yes: Normal Bowel Sounds. No: Distention, Hepatomegaly, Palpable Mass, Tenderness Cardiovascular: Yes: Pulse Irregular JVD: No Heart Sounds: Yes: irreg, rr S1, S2. No: Gallop Murmur: No: Systolic Murmur, Diastolic Murmur Extremities: No: Cold, Cyanosis Edema: trace le edema bl Integumentary: No: Jaundice diaphoresis Neurological: Yes: Alert, Oriented (x3) Psychiatric: No: Agitated CBC, BMP 07/14/16 05:40 07/14/16 05:40 ekg 5/7: afib 143 bpm; nl axis; no path q's; no ST-T changes tele: afib, vr controlled mibi 2012: no ischemia Echo 07/2016: nl lv/rv. 1+ lae. mild-mod mac, 1+ mr/tr Echo 12/2015: nl LVSF; nl RV; mild MR/TR; RVSP 30-40 a/p: 66 f smoker with hx pafib, hx pe/dvt, seizures and frequent falls with injury, copd, htn, anxiety, smoking, lung ca s/p resection 2012, RA, adrenal adenoma, h/o hep c, heroin use on methadone, Buergers disaese, who presents with sob/afib atrial fibrillation -last saw lydia in office 2013: sinus resting HR 54, ongoing palpitations ( not all correlated with afib on prior monitor per his notes), could not incr AVN blockers further -pt does not seem to feel her afib as she denies any palpitations here or at home on DOA -here with rvr initially. now on dilt, dig, inderal and HR controlled. Cont same for now. HR may improve as copd improves as well and she may not need as much rate meds in future. -if rapid AF tx is complicated by sinus shazia (i.e. SSS), need to consider rhythm control (flecainide vs ablation), though she previously deferred ablation with dr freeman -[facility]--has been maintained on AC (xarelto at home), states she has not missed a single dose. stopped asa. patient endorsing recent frequent seizures, frequent falls. Noted to have both acute and old rib fractures on admission xrays. Also endorses recent ankle injury from fall. Per report and discussion with hospitalist, patient is also frequently non-compliant. Would recommend discussions with neuro and pmd regarding fall risk and risk/benefit of AC in this setting (note patient also on AC for h/o PE, unknown if provoked or unprovoked). sob, copd, acute diastolic CHF -prior dry weights 179-180 when hospitalized here 2014 and 12/2015 -current wt 196, ? timing of this trend -has constant sob/wheezing from copd per pt--? worsening at home 1-2 wks ago due to chf (also new pedal edema then) -ER cxr reviewed: incr'd interstitial marking vs prior ? interstitial pulm edema pattern (perihilar predominance noted), probable vascular redistribution ( no effusions) -BNP 6K, from 900 baseline -will cont with lasix 40 iv qd for now since she is still getting steroids which is likely causing some fluid retention, can change back to home dose 20 po qd when on po steroids. Still with some wheezing/stephens but improved, remains on iv steroids. -at risk for tachy-CMP from review of prior notes-- repeat echo here with nl lv function. 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 Ongoing mgm't per pulm/pmd h/o PE: -? details of provoked vs unprovoked, results of hypercoag w/u -on xarelto. See discussion above. HTN: -controlled on current meds h/o heroin abuse: -on methadone maintenance dc tele
--- NOTE | 2016-07-14 11:20 | PN ---
Progress Note (short form) - Note Progress Note: PULMONARY Still with shortness of breath, nonproductive cough and wheezing. Last Vital Signs Temp Pulse Resp BP Pulse Ox 97.8 F 93 H 16 135/84 91 L 07/14/16 05:45 07/14/16 09:24 07/14/16 05:45 07/14/16 05:45 07/13/16 21:00 Intake & Output 07/11/16 07/12/16 07/13/16 07/14/16 23:59 23:59 23:59 23:59 Intake Total 2550 1100 420 250 Balance 2550 1100 420 250 Weight 199 lb 6.4 oz 198 lb 6.4 oz Gen: NAD at rest Heart: RRR Lung: scattered rhonchi, wheezes Abd: soft, nontender Ext: + edema CBC, BMP 07/14/16 05:40 07/14/16 05:40 Active Medications Acetaminophen (Tylenol -) 650 mg PO Q6H PRN PRN Reason: FEVER OR PAIN Last Admin: 07/13/16 19:44 Dose: 650 mg Albuterol/Ipratropium (Duoneb -) 1 amp NEB Q6H PRN PRN Reason: SHORTNESS OF BREATH Last Admin: 07/13/16 14:51 Dose: 1 amp Albuterol/Ipratropium (Duoneb -) 1 amp NEB QIDR [facility] Last Admin: 07/14/16 06:36 Dose: 1 amp Clonazepam (Klonopin -) 1 mg PO BID [facility] Last Admin: 07/14/16 09:23 Dose: 1 mg Digoxin (Lanoxin -) 0.125 mg PO DAILY [facility] Last Admin: 07/14/16 09:24 Dose: 0.125 mg Diltiazem HCl (Cardizem Injection -) 5 mg IVPUSH Q4H PRN PRN Reason: TACHYCARDIA Last Admin: 07/09/16 08:22 Dose: 5 mg Diltiazem HCl (Cardizem -) 90 mg PO QID [facility] Last Admin: 07/14/16 09:23 Dose: 90 mg Docusate Sodium (Colace -) 100 mg PO TID [facility] Last Admin: 07/14/16 05:59 Dose: Not Given Furosemide (Lasix Injection -) 40 mg IVPUSH DAILY [facility] Last Admin: 07/14/16 09:24 Dose: 40 mg Gabapentin (Neurontin -) 300 mg PO TID [facility] Last Admin: 07/14/16 05:40 Dose: 300 mg Levetiracetam (Keppra -) 500 mg PO BID [facility] Last Admin: 07/14/16 09:23 Dose: 500 mg Lidocaine (Lidoderm Patch -) 1 patch TP DAILY [facility] Last Admin: 07/14/16 09:25 Dose: 1 patch Methadone HCl 40 mg/ Methadone (HCl 20 mg/ Methadone HCl 5 mg) 65 mg PO DAILY@ 0600 [facility] Last Admin: 07/14/16 05:40 Dose: 65 mg Methylprednisolone Sodium Succinate (Solu-Medrol -) 40 mg IVPB BID [facility] Last Admin: 07/14/16 09:24 Dose: 40 mg Nicotine (Nicoderm Patch -) 21 mg TD DAILY PRN PRN Reason: NICOTINE REPLACEMENT RX Last Admin: 07/14/16 09:38 Dose: 21 mg Ondansetron HCl (Zofran Injection) 4 mg IVPB Q4H PRN PRN Reason: NAUSEA AND/OR VOMITING Pantoprazole Sodium (Protonix -) 40 mg PO DAILY [facility] Last Admin: 07/14/16 09:24 Dose: 40 mg Propranolol HCl (Inderal La -) 120 mg PO DAILY [facility] Last Admin: 07/14/16 09:23 Dose: 120 mg Quetiapine Fumarate (Seroquel -) 300 mg PO [facility] Last Admin: 07/13/16 21:11 Dose: 300 mg Quetiapine Fumarate (Seroquel -) 25 mg PO DAILY PRN PRN Reason: ANXIETY Last Admin: 07/13/16 16:18 Dose: 25 mg Rivaroxaban (Xarelto -) 20 mg PO [facility] Last Admin: 07/13/16 21:10 Dose: 20 mg Fluticasone/Salmeterol (Advair 100mcg/50mcg -) 1 puff IH BID [facility] Last Admin: 07/14/16 09:22 Dose: 1 puff A/P Acute COPD Exacerbation Paroxysmal Atrial Fibrillatin Acute on Chronic Diastolic CHF h/o Lung Ca Methadone Maintenance h/o PE Lung Nodule - continue medrol at current dose - inhaled bronchodilators - O2 as needed - lasix - monitor urine output, creatinine - rate controlled - continue anticoagulation - will need outpt f/u of lung nodule, encouraged compliance with f/u visits
--- NOTE | 2016-07-14 16:17 | PN ---
Physical Exam: SUBJECTIVE: Patient seen and examined Continues to wheeze, needing oxygen. OBJECTIVE: Vital Signs Temperature 98 F 07/14/16 14:16 Pulse Rate 99 H 07/14/16 14:16 Respiratory Rate 18 07/14/16 14:16 Blood Pressure 114/58 07/14/16 14:16 O2 Sat by Pulse Oximetry (%) 92 L 07/14/16 09:00 GENERAL: The patient is awake, alert, and fully oriented, in no acute distress. HEAD: Normal with no signs of trauma. EYES: PERRL, extraocular movements intact, sclera anicteric, conjunctiva clear. ENT: Ears normal, oropharynx clear without exudates, moist mucous membranes. NECK: Trachea midline, full range of motion, supple. LUNGS: positive for BL wheezing , no accessory muscle use. HEART: Regular rate and rhythm, S1, S2 without murmur, rub or gallop. ABDOMEN: Soft, nontender, nondistended, normoactive bowel sounds, no guarding, no rebound, no masses. EXTREMITIES: 2+ pulses, warm, well-perfused, no edema. NEUROLOGICAL: Cranial nerves II through XII grossly intact. Normal speech, gait not observed. PSYCH: Normal mood, normal affect. SKIN: Warm, dry, normal turgor, no rashes or lesions noted Laboratory Results - last 24 hr 07/14/16 07/14/16 07/14/16 05:40 05:40 10:45 WBC 16.3 H RBC 4.65 Hgb 14.5 Hct 44.1 MCV 94.9 MCHC 32.8 RDW 14.2 Plt Count 210 MPV 8.8 Sodium 136 Potassium 4.5 Chloride 99 Carbon Dioxide 29 Anion Gap 8 BUN 31 H Creatinine 1.0 Creat Clearance w eGFR 55.82 Random Glucose 257 H Calcium 7.9 L Total Bilirubin 0.4 D AST 12 L D ALT 29 Alkaline Phosphatase 65 Total Protein 7.0 Albumin 2.9 L Digoxin 1.3717 Active Medications Generic Name Dose Route Start Last Admin Trade Name Freq PRN Reason Stop Dose Admin Acetaminophen 650 mg 07/08/16 06:03 07/13/16 19:44 Tylenol - PO 650 mg Q6H PRN Administration FEVER OR PAIN Albuterol/Ipratropium 1 amp 07/08/16 06:07 07/13/16 14:51 Duoneb - NEB 1 amp Q6H PRN Administration SHORTNESS OF BREATH Albuterol/Ipratropium 1 amp 07/08/16 12:00 07/14/16 11:51 Duoneb - NEB Not Given QIDR LORRIE Clonazepam 1 mg 07/08/16 10:00 07/14/16 09:23 Klonopin - PO 1 mg BID L[facility]E Administration Digoxin 0.125 mg 07/09/16 11:45 07/14/16 09:24 Lanoxin - PO 0.125 mg DAILY [facility]E Administration Diltiazem HCl 5 mg 07/09/16 00:01 07/09/16 08:22 Cardizem Injection - IVPUSH 5 mg Q4H PRN Administration TACHYCARDIA Diltiazem HCl 90 mg 07/10/16 13:12 07/14/16 14:15 Cardizem - PO 90 mg QID [facility]E Administration Docusate Sodium 100 mg 07/08/16 14:00 07/14/16 14:16 Colace - PO Not Given TID LORRIE Furosemide 40 mg 07/10/16 13:15 07/14/16 09:24 Lasix Injection - IVPUSH 40 mg DAILY L[facility]E Administration Gabapentin 300 mg 07/08/16 14:00 07/14/16 14:15 Neurontin - PO 300 mg TID L[facility]RIE Administration Levetiracetam 500 mg 07/08/16 10:00 07/14/16 09:23 Keppra - PO 500 mg BID L[facility]E Administration Lidocaine 1 patch 07/09/16 10:00 07/14/16 09:25 Lidoderm Patch - TP 1 patch DAILY [facility] Administration Methadone HCl 40 mg/ Methadone 65 mg 07/09/16 08:30 07/14/16 05:40 HCl 20 mg/ Methadone HCl 5 mg PO 65 mg DAILY@0600 [facility] Administration Methylprednisolone Sodium Succinate 40 mg 07/12/16 22:00 07/14/16 09:24 Solu-Medrol - IVPB 40 mg BID [facility]E Administration Nicotine 21 mg 07/08/16 10:00 07/14/16 09:38 Nicoderm Patch - TD 21 mg DAILY PRN Administration NICOTINE REPLACEMENT RX Ondansetron HCl 4 mg 07/08/16 06:03 Zofran Injection IVPB Q4H PRN NAUSEA AND/OR VOMITING Pantoprazole Sodium 40 mg 07/11/16 10:00 07/14/16 09:24 Protonix - PO 40 mg DAILY [facility] Administration Propranolol HCl 120 mg 07/11/16 11:00 07/14/16 09:23 Inderal La - PO 120 mg DAILY [facility] Administration Quetiapine Fumarate 300 mg 07/08/16 22:00 07/13/16 21:11 Seroquel - PO 300 mg HS [facility]E Administration Quetiapine Fumarate 25 mg 07/08/16 09:35 07/13/16 16:18 Seroquel - PO 25 mg DAILY PRN Administration ANXIETY Rivaroxaban 20 mg 07/08/16 22:00 07/13/16 21:10 Xarelto - PO 20 mg HS L[facility]RIE Administration Fluticasone/Salmeterol 1 puff 07/08/16 10:00 07/14/16 09:22 Advair 100mcg/50mcg - IH 1 puff BID [facility]E Administration Home Medications Medication Instructions Recorded Clonazepam [KlonoPIN -] 1 mg PO BID 10/19/14 Methadone [Dolophine -] 65 mg PO DAILY 10/19/14 Tiotropium Johnston [Spiriva] 1 inh PO BID 10/19/14 Quetiapine Fumarate [Seroquel -] 300 mg PO HS 02/05/15 Aspirin Coated [Ecotrin -] 81 mg PO DAILY tablet.ec 09/22/15 Docusate Sodium [Colace -] 100 mg PO TID capsule 09/22/15 Albuterol Sulfate Inhaler - 2 inh PO Q4H PRN 12/08/15 [Ventolin HFA Inhaler -] Nicotine Patch [Nicoderm Patch -] 1 patch TD DAILY PRN 12/08/15 Rivaroxaban [Xarelto -] 20 mg PO DAILY 12/10/15 Fluticasone/Salmeterol [Advair 1 puff IN BID 07/08/16 250-50 Diskus] Furosemide [Lasix] 20 mg PO DAILY 07/08/16 Gabapentin [Neurontin] 300 mg PO TID 07/08/16 Levetiracetam [Keppra -] 500 mg PO BID 07/08/16 Metoprolol Succinate [Toprol Xl] 50 mg PO DAILY 07/08/16 Quetiapine Fumarate [Seroquel -] 25 mg PO DAILY PRN 07/08/16 ASSESSMENT/PLAN: 66 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 C, thyroid nodules, who presented with worsening SOB x 1 week, wheezing , fever and increased sputum production. She was found to have acute COPD exacerbation, with Afib in RVR. # Acute hypoxic respiratory failure is feeling better today , but desaturated to 84% on room air but continues to wheeze due to COPD exacerbation/diastolic heart failure. On IV steroids continue , Duo-Nebs QID and PRN, Bipap at night as needed , on IV lasix , advair . completed 3 day course of IV ceftriaxone day 05/04 (no evidence of PNA) Pulmonary on the case. # A fib with rate controlled now and this morning the rate is slightly elevated high 90's , on xarelto ( started as an outpatient) on digoxin and cardizem ( started here ) for rate control will continue. Also added Inderal LA 120mg daily. discontinued Toprol added Inderal LA continue for now and continue to telemetry monitoring. discussed with the transport analyst. # Acute diastolic heart failure on IV lasix 40 daily continue, echo reviewed #Hx of Hyperthryroidism as per patient: As per ,her increased rate is not due to her hyperthyroidism . we don't have the thyroid w/u from her physician, patient will follow either with her PMD or as an out patient for further w/u # L sided rib Fx : on lidocaine patch for pain ; on methadone program will not give additional narcotics, as she looks comfortable and will affect her breathing #H/o Seizure , reports having multiple seizures last month . Patient is not complaint with her keppra since did not leaf size picker her keppra since 06/07 . will cont her Keppra ;will try to get 4-day EEG report from her neurologist if possible since she had done it as an outpatient. #Hx of heroin abuse on methadone program # DVT px : on xarelto Visit type - Emergency Visit Emergency Visit: Yes ED Registration Date: 07/08/16 Care time: The patient presented to the Emergency Department on the above date and was hospitalized for further evaluation of their emergent condition. - New Patient This patient is new to me today: No - Critical Care Critical Care patient: No
[2016-07-14] MEDS: QUEtiapine FUMARATE 50 MG TABLET PO SCH (21:51)
[2016-07-14] MEDS: RIVAROXABAN 20 MG TABLET PO SCH (21:52)
[2016-07-15] MEDS ORDERED: METHADONE HCL 40 MG DISPERSABLE TABLET ONE (05:59)
[2016-07-15] MEDS ORDERED: METHADONE HCL 10 MG TABLET ONE (05:59)
[2016-07-15] MEDS ORDERED: METHADONE HCL 5 MG TABLET ONE (06:00)
[2016-07-15] MEDS: ALBUTEROL SO4 2.5/IPRATROPIUM 0.5 INH SOL 3 ML VIAL.NEB. NEB SCH ×4 (06:14→17:31)
[2016-07-15] MEDS: METHADONE 40 MG, METHADONE 20 MG, METHADONE 5 MG PO SCH (06:15)
[2016-07-15] MEDS: DOCUSATE SODIUM 100 MG CAPSULE (FP) PO SCH ×3 (06:15→21:10)
[2016-07-15] MEDS: GABAPENTIN 300 MG CAPSULE (FP) PO SCH ×3 (06:16→21:10)
[2016-07-15] MEDS: dilTIAZem HCL 60 MG TABLET (FP) PO SCH ×4 (09:45→21:09)
[2016-07-15] MEDS: clonazePAM 0.5 MG TABLET PO SCH ×2 (09:46→21:36)
[2016-07-15] MEDS: levETIRAcetam 500 MG TABLET (FP) PO SCH ×2 (09:47→21:10)
[2016-07-15] MEDS: PANTOPRAZOLE 40 MG TABLET (FP) PO SCH (09:47)
[2016-07-15] MEDS: FUROSEMIDE 40 MG/4 ML INJECTABLE VIAL IVPUSH SCH (09:48)
[2016-07-15] MEDS: LIDOCAINE 5% TOPICAL PATCH TP SCH (09:48)
[2016-07-15] MEDS: DIGOXIN 0.125 MG TABLET (FP) PO SCH (09:49)
[2016-07-15] MEDS: methylPREDNISolone NA SUCC 40 MG/1 ML VIAL IVPB SCH (09:49)
[2016-07-15] MEDS: FLUTICASONE/SALMETEROL 100 MCG/50 MCG DISKUS IH SCH ×2 (09:49→21:08)
[2016-07-15] MEDS: ALBUTEROL SO4 2.5/IPRATROPIUM 0.5 INH SOL 3 ML VIAL.NEB. NEB PRN (10:54)
--- NOTE | 2016-07-15 11:39 | PN ---
Progress Note (short form) - Note Progress Note: S: still with sob, cough. no cp, palps, dizziness. Current Medications Generic Name Dose Route Start Last Admin Trade Name Freq PRN Reason Stop Dose Admin Acetaminophen 650 mg 07/08/16 06:03 07/13/16 19:44 Tylenol - PO 650 mg Q6H PRN Administration FEVER OR PAIN Albuterol/Ipratropium 1 amp 07/08/16 06:07 07/15/16 10:54 Duoneb - NEB 1 amp Q6H PRN Administration SHORTNESS OF BREATH Albuterol/Ipratropium 1 amp 07/08/16 12:00 07/15/16 06:34 Duoneb - NEB 1 amp QIDR LORRIE Administration Digoxin 0.125 mg 07/09/16 11:45 07/15/16 09:49 Lanoxin - PO 0.125 mg DAILY [facility] Administration Diltiazem HCl 5 mg 07/09/16 00:01 07/09/16 08:22 Cardizem Injection - IVPUSH 5 mg Q4H PRN Administration TACHYCARDIA Diltiazem HCl 90 mg 07/10/16 13:12 07/15/16 09:45 Cardizem - PO 90 mg QID [facility]E Administration Docusate Sodium 100 mg 07/08/16 14:00 07/15/16 06:15 Colace - PO Not Given TID LORRIE Furosemide 40 mg 07/10/16 13:15 07/15/16 09:48 Lasix Injection - IVPUSH 40 mg DAILY [facility] Administration Gabapentin 300 mg 07/08/16 14:00 07/15/16 06:16 Neurontin - PO 300 mg TID LORRIE Administration Levetiracetam 500 mg 07/08/16 10:00 07/15/16 09:47 Keppra - PO 500 mg BID [facility]E Administration Lidocaine 1 patch 07/09/16 10:00 07/15/16 09:48 Lidoderm Patch - TP 1 patch DAILY [facility] Administration Methadone HCl 40 mg/ Methadone 65 mg 07/09/16 08:30 07/15/16 06:15 HCl 20 mg/ Methadone HCl 5 mg PO 65 mg DAILY@0600 [facility] Administration Methylprednisolone Sodium Succinate 40 mg 07/12/16 22:00 07/15/16 09:49 Solu-Medrol - IVPB 40 mg BID [facility] Administration Nicotine 21 mg 07/08/16 10:00 07/14/16 09:38 Nicoderm Patch - TD 21 mg DAILY PRN Administration NICOTINE REPLACEMENT RX Ondansetron HCl 4 mg 07/08/16 06:03 Zofran Injection IVPB Q4H PRN NAUSEA AND/OR VOMITING Pantoprazole Sodium 40 mg 07/11/16 10:00 07/15/16 09:47 Protonix - PO 40 mg DAILY [facility] Administration Propranolol HCl 120 mg 07/11/16 11:00 07/14/16 09:23 Inderal La - PO 120 mg DAILY [facility] Administration Quetiapine Fumarate 300 mg 07/08/16 22:00 07/14/16 21:51 Seroquel - PO 300 mg HS [facility]E Administration Quetiapine Fumarate 25 mg 07/08/16 09:35 07/13/16 16:18 Seroquel - PO 25 mg DAILY PRN Administration ANXIETY Rivaroxaban 20 mg 07/08/16 22:00 07/14/16 21:52 Xarelto - PO 20 mg HS [facility]E Administration Fluticasone/Salmeterol 1 puff 07/08/16 10:00 07/15/16 09:49 Advair 100mcg/50mcg - IH 1 puff BID [facility] Administration Vital Signs Period Temp Pulse Resp BP Sys/Smyth Pulse Ox Last 24 Hr 97.8 F-98.8 F 78-102 18-20 111-135/58-92 91-93 Constitutional: Yes: No Distress Eyes: No: Sclera Icterus HENT: No: Nasal Congestion Respiratory: Yes: Rhonchi, mild Wheezes (diffuse), nl eff No: Accessory Muscle Use, Rales Gastrointestinal: Yes: Normal Bowel Sounds. No: Distention, Hepatomegaly, Palpable Mass, Tenderness Cardiovascular: Yes: Pulse Irregular JVD: No Heart Sounds: Yes: irreg, rr S1, S2. No: Gallop Murmur: No: Systolic Murmur, Diastolic Murmur Extremities: No: Cold, Cyanosis Edema: trace le edema bl Integumentary: No: Jaundice diaphoresis Neurological: Yes: Alert, Oriented (x3) Psychiatric: No: Agitated CBC, BMP 07/14/16 05:40 07/14/16 05:40 ekg 07/08: afib 143 bpm; nl axis; no path q's; no ST-T changes mibi 2012: no ischemia Echo 07/2016: nl lv/rv. 1+ lae. mild-mod mac, 1+ mr/tr Echo 12/2015: nl LVSF; nl RV; mild MR/TR; RVSP 30-40 a/p: 66 f smoker with hx pafib, hx pe/dvt, seizures and frequent falls with injury, copd, htn, anxiety, smoking, lung ca s/p resection 2012, RA, adrenal adenoma, h/o hep c, heroin use on methadone, Buergers disaese, who presents with sob/afib atrial fibrillation -last saw lydia in office 2013: sinus resting HR 54, ongoing palpitations ( not all correlated with afib on prior monitor per his notes), could not incr AVN blockers further -pt does not seem to feel her afib as she denies any palpitations here or at home on DOA -here with rvr initially. now on dilt, dig, inderal and HR controlled. Cont same for now. HR may improve as copd improves as well and she may not need as much rate meds in future. -if rapid AF tx is complicated by sinus shazia (i.e. SSS), need to consider rhythm control (flecainide vs ablation), though she previously deferred ablation with dr freeman -[facility]--has been maintained on AC (xarelto at home), states she has not missed a single dose. stopped asa. patient endorsing recent frequent seizures, frequent falls. Noted to have both acute and old rib fractures on admission xrays. Also endorses recent ankle injury from fall. Per report and discussion with hospitalist, patient is also frequently non-compliant. Would recommend discussions with neuro and pmd regarding fall risk and risk/benefit of AC in this setting (note patient also on AC for h/o PE, unknown if provoked or unprovoked). sob, copd, acute diastolic CHF -prior dry weights 179-180 when hospitalized here 2014 and 12/2015 -current wt 196, ? timing of this trend -has constant sob/wheezing from copd per pt--? worsening at home 1-2 wks ago due to chf (also new pedal edema then) -ER cxr reviewed: incr'd interstitial marking vs prior ? interstitial pulm edema pattern (perihilar predominance noted), probable vascular redistribution ( no effusions) -BNP 6K, from 900 baseline -will cont with lasix 40 iv qd for now since she is still getting iv steroids which is likely causing some fluid retention, can change back to home dose lasix 20 po qd when on po steroids. Still with some wheezing/stephens but improved, remains on iv steroids. -at risk for tachy-CMP from review of prior notes-- repeat echo here with nl lv function. 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 Ongoing mgm't per pulm/pmd h/o PE: -? details of provoked vs unprovoked, results of hypercoag w/u -on xarelto. See discussion above. HTN: -controlled on current meds h/o heroin abuse: -on methadone maintenance
[2016-07-15] MEDS ORDERED: PT OWN MED DRAWER 7, Y5N ONE (12:03)
--- NOTE | 2016-07-15 13:47 | PN ---
Progress Note (short form) - Note Progress Note: Patient is better today but continues needing oxygen. Temperature 98 F 07/15/16 08:29 Pulse Rate 92 H 07/15/16 10:54 Respiratory Rate 20 07/15/16 08:29 Blood Pressure 111/58 07/15/16 08:29 O2 Sat by Pulse Oximetry (%) 91 L 07/15/16 10:54 GENERAL: The patient is awake, alert, and fully oriented, in no acute distress. HEAD: Normal with no signs of trauma. EYES: PERRL, extraocular movements intact, sclera anicteric, conjunctiva clear. ENT: Ears normal, oropharynx clear without exudates, moist mucous membranes. NECK: Trachea midline, full range of motion, supple. LUNGS: BL Wheezing continues, no crackles, no accessory muscle use. HEART: Regular rate and rhythm, S1, S2 without murmur, rub or gallop. ABDOMEN: Soft, nontender, nondistended, normoactive bowel sounds, no guarding, no rebound, no masses. EXTREMITIES: 2+ pulses, warm, well-perfused, no edema. NEUROLOGICAL: Cranial nerves II through XII grossly intact. Normal speech, gait not observed. PSYCH: Normal mood, normal affect. SKIN: Warm, dry, normal turgor, no rashes or lesions noted CBCD WBC 16.3 K/mm3 (4.0-10.0) H 07/14/16 05:40 RBC 4.65 M/mm3 (3.60-5.2) 07/14/16 05:40 Hgb 14.5 GM/dL (10.7-15.3) 07/14/16 05:40 Hct 44.1 % (32.4-45.2) 07/14/16 05:40 MCV 94.9 fl (80-96) 07/14/16 05:40 MCHC 32.8 g/dl (32.0-36.0) 07/14/16 05:40 RDW 14.2 % (11.6-15.6) 07/14/16 05:40 Plt Count 210 K/MM3 (134-434) 07/14/16 05:40 MPV 8.8 fl (7.5-11.1) 07/14/16 05:40 CMP Sodium 136 mmol/L (136-145) 07/14/16 05:40 Potassium 4.5 mmol/L (3.5-5.1) 07/14/16 05:40 Chloride 99 mmol/L (98-107) 07/14/16 05:40 Carbon Dioxide 29 mmol/L (21-32) 07/14/16 05:40 Anion Gap 8 (8-16) 07/14/16 05:40 BUN 31 mg/dL (7-18) H 07/14/16 05:40 Creatinine 1.0 mg/dL (0.55-1.02) 07/14/16 05:40 Creat Clearance w eGFR 55.82 (>60) 07/14/16 05:40 Random Glucose 257 mg/dL (74-106) H 07/14/16 05:40 Calcium 7.9 mg/dL (8.5-10.1) L 07/14/16 05:40 Total Bilirubin 0.4 mg/dL (0.2-1.0) D 07/14/16 05:40 AST 12 U/L (15-37) L D 07/14/16 05:40 ALT 29 U/L (12-78) 07/14/16 05:40 Alkaline Phosphatase 65 U/L (45-117) 07/14/16 05:40 Total Protein 7.0 g/dl (6.4-8.2) 07/14/16 05:40 Albumin 2.9 g/dl (3.4-5.0) L 07/14/16 05:40 CARDIAC ENZYMES Creatine Kinase 439 IU/L (26-192) H 07/08/16 03:50 Troponin I < 0.02 ng/ml (0.00-0.05) 07/08/16 18:31 Current Medications Generic Name Dose Route Start Last Admin Trade Name Freq PRN Reason Stop Dose Admin Acetaminophen 650 mg 07/08/16 06:03 07/13/16 19:44 Tylenol - PO 650 mg Q6H PRN Administration FEVER OR PAIN Albuterol/Ipratropium 1 amp 07/08/16 06:07 07/15/16 10:54 Duoneb - NEB 1 amp Q6H PRN Administration SHORTNESS OF BREATH Albuterol/Ipratropium 1 amp 07/08/16 12:00 07/15/16 06:34 Duoneb - NEB 1 amp QIDR [facility] Administration Digoxin 0.125 mg 07/09/16 11:45 07/15/16 09:49 Lanoxin - PO 0.125 mg DAILY [facility] Administration Diltiazem HCl 90 mg 07/10/16 13:12 07/15/16 09:45 Cardizem - PO 90 mg QID [facility] Administration Docusate Sodium 100 mg 07/08/16 14:00 07/15/16 06:15 Colace - PO Not Given TID [facility] Gabapentin 300 mg 07/08/16 14:00 07/15/16 06:16 Neurontin - PO 300 mg TID [facility] Administration Levetiracetam 500 mg 07/08/16 10:00 07/15/16 09:47 Keppra - PO 500 mg BID [facility] Administration Lidocaine 1 patch 07/09/16 10:00 07/15/16 09:48 Lidoderm Patch - TP 1 patch DAILY [facility] Administration Methadone HCl 40 mg/ Methadone 65 mg 07/09/16 08:30 07/15/16 06:15 HCl 20 mg/ Methadone HCl 5 mg PO 65 mg DAILY@0600 [facility] Administration Nicotine 21 mg 07/08/16 10:00 07/14/16 09:38 Nicoderm Patch - TD 21 mg DAILY PRN Administration NICOTINE REPLACEMENT RX Pantoprazole Sodium 40 mg 07/11/16 10:00 07/15/16 09:47 Protonix - PO 40 mg DAILY [facility] Administration Prednisone 40 mg 07/16/16 10:00 Deltasone - PO DAILY [facility] Propranolol HCl 120 mg 07/11/16 11:00 07/15/16 12:07 Inderal La - PO 120 mg DAILY [facility] Administration Quetiapine Fumarate 300 mg 07/08/16 22:00 07/14/16 21:51 Seroquel - PO 300 mg HS [facility] Administration Quetiapine Fumarate 25 mg 07/08/16 09:35 07/13/16 16:18 Seroquel - PO 25 mg DAILY PRN Administration ANXIETY Rivaroxaban 20 mg 07/08/16 22:00 07/14/16 21:52 Xarelto - PO 20 mg HS [facility] Administration Fluticasone/Salmeterol 1 puff 07/08/16 10:00 07/15/16 09:49 Advair 100mcg/50mcg - IH 1 puff BID [facility] Administration Home Medications Medication Instructions Recorded Clonazepam [KlonoPIN -] 1 mg PO BID 10/19/14 Methadone [Dolophine -] 65 mg PO DAILY 10/19/14 Tiotropium [place] [Spiriva] 1 inh PO BID 10/19/14 Quetiapine Fumarate [Seroquel -] 300 mg PO HS 02/05/15 Aspirin Coated [Ecotrin -] 81 mg PO DAILY tablet.ec 09/22/15 Docusate Sodium [Colace -] 100 mg PO TID capsule 09/22/15 Albuterol Sulfate Inhaler - 2 inh PO Q4H PRN 12/08/15 [Ventolin HFA Inhaler -] Nicotine Patch [Nicoderm Patch -] 1 patch TD DAILY PRN 12/08/15 Rivaroxaban [Xarelto -] 20 mg PO DAILY 12/10/15 Fluticasone/Salmeterol [Advair 1 puff IN BID 07/08/16 250-50 Diskus] Furosemide [Lasix] 20 mg PO DAILY 07/08/16 Gabapentin [Neurontin] 300 mg PO TID 07/08/16 Levetiracetam [Keppra -] 500 mg PO BID 07/08/16 Metoprolol Succinate [Toprol Xl] 50 mg PO DAILY 07/08/16 Quetiapine Fumarate [Seroquel -] 25 mg PO DAILY PRN 07/08/16 ASSESSMENT/PLAN: 66 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 C, thyroid nodules, who presented with worsening SOB x 1 week, wheezing , fever and increased sputum production. She was found to have acute COPD exacerbation, with Afib in RVR. # Acute hypoxic respiratory failure is feeling better today , 91% on 3 liter oxygen , continues to wheeze less than before. due to COPD/diastolic heart failure. will switch to po Prednisone , Duo-Nebs QID and PRN, Bipap at night as needed , switched to po lasix , advair . completed 3 day course of IV ceftriaxone day 05/04 (no evidence of PNA) Pulmonary on the case. Might need oxygen to go home with, will reassess in am. # A fib with rate controlled now and this morning the rate is in 90s , on xarelto( started as an outpatient) on digoxin and cardizem ( started here ) for rate control. Also added Inderal LA 120mg daily. discontinued Toprol added Inderal LA continue for now and continue to telemetry monitoring. discussed with the transfer professor. # Acute diastolic heart failure , due to Afib rate controlled now : on po lasix 40 daily , echo reviewed #Hx of Hyperthryroidism as per patient: As per ,her increased rate is not due to her hyperthyroidism . we don't have the thyroid w/u from her physician, patient will follow either with her PMD or as an out patient for further w/u # L sided rib Fx : on lidocaine patch for pain ; on methadone program will not give additional narcotics, as she looks comfortable and will affect her breathing #H/o Seizure , reports having multiple seizures last month . Patient is not complaint with her keppra since did not bead picker her keppra since 06/07 . will cont her Keppra ;will try to get 4-day EEG report from her neurologist if possible since she had done it as an outpatient. #Hx of heroin abuse on methadone program # DVT px : on xarelto POssible discharge in am , will reaccess oxygen need in am , might need oxygen to home home with. Visit type - Emergency Visit Emergency Visit: Yes ED Registration Date: 07/08/16 Care time: The patient presented to the Emergency Department on the above date and was hospitalized for further evaluation of their emergent condition. - New Patient This patient is new to me today: No - Critical Care Critical Care patient: No
--- NOTE | 2016-07-15 13:48 | PN ---
Progress Note (short form) - Note Progress Note: PULMONARY Feeling better. Wants to go home. Still with some shortness of breath, nonproductive cough and wheezing. Last Vital Signs Temp Pulse Resp BP Pulse Ox 98 F 92 H 20 111/58 91 L 07/15/16 08:29 07/15/16 10:54 07/15/16 08:29 07/15/16 08:29 07/15/16 10:54 Gen: NAD at rest Heart: RRR Lung: scattered rhonchi, wheezes Abd: soft, nontender Ext: + edema CBC, BMP 07/14/16 05:40 07/14/16 05:40 Active Medications Acetaminophen (Tylenol -) 650 mg PO Q6H PRN PRN Reason: FEVER OR PAIN Last Admin: 07/13/16 19:44 Dose: 650 mg Albuterol/Ipratropium (Duoneb -) 1 amp NEB Q6H PRN PRN Reason: SHORTNESS OF BREATH Last Admin: 07/15/16 10:54 Dose: 1 amp Albuterol/Ipratropium (Duoneb -) 1 amp NEB QIDR [facility] Last Admin: 07/15/16 06:34 Dose: 1 amp Digoxin (Lanoxin -) 0.125 mg PO DAILY [facility] Last Admin: 07/15/16 09:49 Dose: 0.125 mg Diltiazem HCl (Cardizem -) 90 mg PO QID [facility] Last Admin: 07/15/16 09:45 Dose: 90 mg Docusate Sodium (Colace -) 100 mg PO TID [facility] Last Admin: 07/15/16 06:15 Dose: Not Given Gabapentin (Neurontin -) 300 mg PO TID [facility] Last Admin: 07/15/16 06:16 Dose: 300 mg Levetiracetam (Keppra -) 500 mg PO BID [facility] Last Admin: 07/15/16 09:47 Dose: 500 mg Lidocaine (Lidoderm Patch -) 1 patch TP DAILY [facility] Last Admin: 07/15/16 09:48 Dose: 1 patch Methadone HCl 40 mg/ Methadone (HCl 20 mg/ Methadone HCl 5 mg) 65 mg PO DAILY@ 0600 [facility] Last Admin: 07/15/16 06:15 Dose: 65 mg Nicotine (Nicoderm Patch -) 21 mg TD DAILY PRN PRN Reason: NICOTINE REPLACEMENT RX Last Admin: 07/14/16 09:38 Dose: 21 mg Pantoprazole Sodium (Protonix -) 40 mg PO DAILY [facility] Last Admin: 07/15/16 09:47 Dose: 40 mg Prednisone (Deltasone -) 40 mg PO DAILY [facility] Propranolol HCl (Inderal La -) 120 mg PO DAILY [facility] Last Admin: 07/15/16 12:07 Dose: 120 mg Quetiapine Fumarate (Seroquel -) 300 mg PO HS [facility] Last Admin: 07/14/16 21:51 Dose: 300 mg Quetiapine Fumarate (Seroquel -) 25 mg PO DAILY PRN PRN Reason: ANXIETY Last Admin: 07/13/16 16:18 Dose: 25 mg Rivaroxaban (Xarelto -) 20 mg PO HS [facility] Last Admin: 07/14/16 21:52 Dose: 20 mg Fluticasone/Salmeterol (Advair 100mcg/50mcg -) 1 puff IH BID [facility] Last Admin: 07/15/16 09:49 Dose: 1 puff A/P Acute COPD Exacerbation Paroxysmal Atrial Fibrillatin Acute on Chronic Diastolic CHF h/o Lung Ca Methadone Maintenance h/o PE Lung Nodule - can change steroids to PO - inhaled bronchodilators - O2 as needed - lasix - monitor urine output, creatinine - rate controlled - continue anticoagulation - check ambulatory SpO2 on room air to assess for home O2 - will need outpt f/u of lung nodule, encouraged compliance with f/u visits
[2016-07-15] MEDS: QUEtiapine FUMARATE 50 MG TABLET PO SCH (21:10)
[2016-07-15] MEDS: RIVAROXABAN 20 MG TABLET PO SCH (21:11)
[2016-07-16] MEDS ORDERED: METHADONE HCL 40 MG DISPERSABLE TABLET ONE (05:21)
[2016-07-16] MEDS ORDERED: METHADONE HCL 5 MG TABLET ONE (05:21)
[2016-07-16] MEDS ORDERED: METHADONE HCL 10 MG TABLET ONE (05:21)
[2016-07-16] MEDS: GABAPENTIN 300 MG CAPSULE (FP) PO SCH (05:50)
[2016-07-16] MEDS: DOCUSATE SODIUM 100 MG CAPSULE (FP) PO SCH (05:50)
[2016-07-16] MEDS: METHADONE 40 MG, METHADONE 20 MG, METHADONE 5 MG PO SCH (05:51)
[2016-07-16] MEDS: ALBUTEROL SO4 2.5/IPRATROPIUM 0.5 INH SOL 3 ML VIAL.NEB. NEB SCH ×2 (06:46)
--- NOTE | 2016-07-16 08:56 | PN ---
Teaching Attending Note Name of Resident: Alisha Grossman ATTENDING PHYSICIAN STATEMENT I saw and evaluated the patient. I reviewed the resident's note and discussed the case with the resident. I agree with the resident's findings and plan as documented. SUBJECTIVE: Patient is feeling better today. Had a long conversation with her, patient stated that had DVT/PE in the past where she was treated with Coumadin and now patient is on Xarelto as per her PMD since patient does not need to adjust her INR. Stated that she is aware of all her risks and was also explained to her By her PMD OBJECTIVE: Vital Signs Temperature 97.8 F 07/16/16 05:00 Pulse Rate 88 07/16/16 05:00 Respiratory Rate 20 07/16/16 05:00 Blood Pressure 138/45 07/16/16 05:00 O2 Sat by Pulse Oximetry (%) 93 L 07/15/16 21:00 CBCD WBC 16.3 K/mm3 (4.0-10.0) H 07/14/16 05:40 RBC 4.65 M/mm3 (3.60-5.2) 07/14/16 05:40 Hgb 14.5 GM/dL (10.7-15.3) 07/14/16 05:40 Hct 44.1 % (32.4-45.2) 07/14/16 05:40 MCV 94.9 fl (80-96) 07/14/16 05:40 MCHC 32.8 g/dl (32.0-36.0) 07/14/16 05:40 RDW 14.2 % (11.6-15.6) 07/14/16 05:40 Plt Count 210 K/MM3 (134-434) 07/14/16 05:40 MPV 8.8 fl (7.5-11.1) 07/14/16 05:40 CMP Sodium 136 mmol/L (136-145) 07/14/16 05:40 Potassium 4.5 mmol/L (3.5-5.1) 07/14/16 05:40 Chloride 99 mmol/L (98-107) 07/14/16 05:40 Carbon Dioxide 29 mmol/L (21-32) 07/14/16 05:40 Anion Gap 8 (8-16) 07/14/16 05:40 BUN 31 mg/dL (7-18) H 07/14/16 05:40 Creatinine 1.0 mg/dL (0.55-1.02) 07/14/16 05:40 Creat Clearance w eGFR 55.82 (>60) 07/14/16 05:40 Random Glucose 257 mg/dL (74-106) H 07/14/16 05:40 Calcium 7.9 mg/dL (8.5-10.1) L 07/14/16 05:40 Total Bilirubin 0.4 mg/dL (0.2-1.0) D 07/14/16 05:40 AST 12 U/L (15-37) L D 07/14/16 05:40 ALT 29 U/L (12-78) 07/14/16 05:40 Alkaline Phosphatase 65 U/L (45-117) 07/14/16 05:40 Total Protein 7.0 g/dl (6.4-8.2) 07/14/16 05:40 Albumin 2.9 g/dl (3.4-5.0) L 07/14/16 05:40 CARDIAC ENZYMES Creatine Kinase 439 IU/L (26-192) H 07/08/16 03:50 Troponin I < 0.02 ng/ml (0.00-0.05) 07/08/16 18:31 Current Medications Generic Name Dose Route Start Last Admin Trade Name Freq PRN Reason Stop Dose Admin Acetaminophen 650 mg 07/08/16 06:03 07/13/16 19:44 Tylenol - PO 650 mg Q6H PRN Administration FEVER OR PAIN Albuterol/Ipratropium 1 amp 07/08/16 06:07 07/15/16 10:54 Duoneb - NEB 1 amp Q6H PRN Administration SHORTNESS OF BREATH Albuterol/Ipratropium 1 amp 07/08/16 12:00 07/16/16 06:46 Duoneb - NEB 1 amp QIDR [facility] Administration Clonazepam 1 mg 07/15/16 22:00 07/15/16 21:36 Klonopin - (Patient has medication at home) PO 1 mg BID [facility] Administration Digoxin 0.125 mg 07/09/16 11:45 07/15/16 09:49 Lanoxin - will give an RX home PO 0.125 mg DAILY [facility] Administration Diltiazem HCl 90 mg 07/10/16 13:12 07/15/16 21:09 Cardizem - will give an Rx home PO 90 mg QID [facility] Administration Docusate Sodium 100 mg 07/08/16 14:00 07/16/16 05:50 Colace - PO 100 mg TID [facility] Administration Gabapentin 300 mg 07/08/16 14:00 07/16/16 05:50 Neurontin - PO 300 mg TID [facility] Administration Levetiracetam 500 mg 07/08/16 10:00 07/15/16 21:10 Keppra - will give an Rx home PO 500 mg BID [facility] Administration Lidocaine 1 patch 07/09/16 10:00 07/15/16 09:48 Lidoderm Patch - TP 1 patch DAILY [facility] Administration Methadone HCl 40 mg/ Methadone 65 mg 07/09/16 08:30 07/16/16 05:51 HCl 20 mg/ Methadone HCl 5 mg PO 65 mg DAILY@0600 [facility] Administration Nicotine 21 mg 07/08/16 10:00 07/14/16 09:38 Nicoderm Patch - TD 21 mg DAILY PRN Administration will an RX home NICOTINE REPLACEMENT RX Pantoprazole Sodium 40 mg 07/11/16 10:00 07/15/16 09:47 Protonix - PO 40 mg DAILY [facility] Administration Prednisone 40 mg 07/16/16 10:00 Deltasone - will give an rRX home 12 day taper PO DAILY [facility] Propranolol HCl 120 mg 07/11/16 11:00 07/15/16 12:07 Inderal La - PO 120 mg will give an Rx Home DAILY [facility] Administration Quetiapine Fumarate 300 mg 07/08/16 22:00 07/15/16 21:10 Seroquel - PO 300 mg HS [facility] Administration Quetiapine Fumarate 25 mg 07/08/16 09:35 07/13/16 16:18 Seroquel - PO 25 mg DAILY PRN Administration ANXIETY Rivaroxaban 20 mg 07/08/16 22:00 07/15/16 21:11 Xarelto - PO 20 mg HS [facility] Administration Fluticasone/Salmeterol 1 puff 07/08/16 10:00 07/15/16 21:08 Advair 100mcg/50mcg - IH 1 puff will Give an Rx for home BID [facility] Administration Home Medications Medication Instructions Recorded Clonazepam [KlonoPIN -] 1 mg PO BID 10/19/14 Methadone [Dolophine -] 65 mg PO DAILY 10/19/14 Tiotropium [place] [Spiriva] 1 inh PO BID 10/19/14 Quetiapine Fumarate [Seroquel -] 300 mg PO HS 02/05/15 Aspirin Coated [Ecotrin -] 81 mg PO DAILY tablet.ec 09/22/15 Docusate Sodium [Colace -] 100 mg PO TID capsule 09/22/15 Albuterol Sulfate Inhaler - 2 inh PO Q4H PRN 12/08/15 [Ventolin HFA Inhaler -] Nicotine Patch [Nicoderm Patch -] 1 patch TD DAILY PRN 12/08/15 Rivaroxaban [Xarelto -] 20 mg PO DAILY 12/10/15 Fluticasone/Salmeterol [Advair 1 puff IN BID 07/08/16 250-50 Diskus] Furosemide [Lasix] 20 mg PO DAILY 07/08/16 Gabapentin [Neurontin] 300 mg PO TID 07/08/16 Levetiracetam [Keppra -] 500 mg PO BID 07/08/16 Metoprolol Succinate [Toprol Xl] 50 mg PO DAILY 07/08/16 Quetiapine Fumarate [Seroquel -] 25 mg PO DAILY PRN 07/08/16 ASSESSMENT AND PLAN: 66 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 C, thyroid nodules, who presented with worsening SOB x 1 week, wheezing , fever and increased sputum production. She was found to have acute COPD exacerbation, with Afib in RVR. # Acute hypoxic respiratory failure is feeling better today , oxygenating well without any oxygen ; therefore does not need any oxygen at this time. # A fib with rate controlled now and this morning the rate is in 88 , on xarelto( started as an outpatient) on digoxin and cardizem ( started here ) for rate control. Also added Inderal LA 120mg daily. discontinued Toprol added Inderal LA continue as an outpatient. discussed with the mining teacher. Her rvr initially. is controlled by dilt, dig, inderal and HR controlled. as per cardiology to continue for now will follow up with -if rapid AF tx is complicated by sinus shazia (i.e. SSS), need to consider rhythm control (flecainide vs ablation), though she previously deferred ablation with dr freeman. CHADS VASC 2--has been maintained on AC (xarelto at home), with h/o PE noted. -she has had recent frequent seizures and falls with acute and old rib fractures on admission xrays, reports recent ankle injury from fall. 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 Patient understands her risks and understands that she needs to be compliant with her Seizure medication since a fall is a high risk for her. Her CHADS-VASC of 2 and no prior known cva (and none seen on CT head currently, and 2016 MRI brain), Patient will follo up with her neurologist (patti watkins) . HOWEVER it is unknown (and unknowable at this point) to me whether prior PE was provoked or unprovoked, and whether she had hypercoagulable workup done, as this pre-dates all available notes in [facility] which I reviewed today. pt reported to me that she had recent LLE DVT few mo ago (changed coumadin to xarelto then, ? compliance issue with coumadin f/u and INRs). Therefore, risks of life-threatening PE could potentially be prohibitive here, depending on that info--hence need to defer decision about stopping AC to pt's PMD who knows her from before, and if her VTE risk has not previously been well defined, it would need to be done as outpatient. Therefore,We cannot rec stopping AC at this time. d/w'd dr Hollis and my resident the above consideration, and need for appropriate pt counselling and outpt transfer of this important care consideration. also discussed with the patient in detail as well today and she agrees to see pmd dr gonzalez to discuss her issues and come up with a plan for her , taking her consedirations PE/DVT and her Seizure and her falls. Patient understands and will follow with her doctors. # Acute diastolic heart failure , due to Afib rate controlled now : on po lasix 40 daily , echo reviewed #Hx of Hyperthryroidism as per patient: As per ,her increased rate is not due to her hyperthyroidism . we don't have the thyroid w/u from her physician, patient will follow either with her PMD or as an out patient for further w/u # L sided rib Fx : on lidocaine patch for pain ; on methadone program will not give additional narcotics, as she looks comfortable and will affect her breathing #H/o Seizure , reports having multiple seizures last month . Patient is not complaint with her keppra since did not greens picker her keppra from pharmacy since 06/07 . will cont her Keppra ;will try to get 4-day EEG report from her neurologist if possible since she had done it as an outpatient. #Hx of heroin abuse on methadone program # DVT px : on xarelto Patient has Klonopin at home , has an appointment with her center on 2016
[2016-07-16] MEDS ORDERED: PT OWN MED DRAWER 7, Y5N ONE (09:09)
[2016-07-16] MEDS: LIDOCAINE 5% TOPICAL PATCH TP SCH (09:15)
[2016-07-16] MEDS: dilTIAZem HCL 60 MG TABLET (FP) PO SCH (09:16)
[2016-07-16] MEDS: PANTOPRAZOLE 40 MG TABLET (FP) PO SCH (09:18)
[2016-07-16] MEDS: DIGOXIN 0.125 MG TABLET (FP) PO SCH (09:18)
[2016-07-16] MEDS: clonazePAM 0.5 MG TABLET PO SCH (09:18)
[2016-07-16] MEDS: levETIRAcetam 500 MG TABLET (FP) PO SCH (09:18)
[2016-07-16] MEDS: FLUTICASONE/SALMETEROL 100 MCG/50 MCG DISKUS IH SCH (09:21)
--- NOTE | 2016-07-16 09:30 | DS ---
Physical Exam: SUBJECTIVE: Patient seen and examined at bed side this morning. Feels better. No complaints. Breathing has improved. Denies chest pain, cough, palpitation, abdominal pain, nausea or vomiting. Bowel/Bladder habit normal. Sleep/Appetite normal. OBJECTIVE: Vital Signs Period Temp Pulse Resp BP Sys/Smyth Pulse Ox Last 24 Hr 97.8 F-98.8 F 80-102 18-20 114-138/45-80 91-93 PHYSICAL EXAM GENERAL: The patient is obese, sitting comfortably in bed, awake, alert, and fully oriented, in no acute distress. HEAD: Normal with no signs of trauma. EYES: EOM intact, no pallor or icterus. ENT: Ears normal moist mucous membranes. NECK: Trachea midline, full range of motion, supple. Thyroid fullness, couldn't appreciate the thyroid nodules. LUNGS: Breath sounds equal, occasional wheeze, no rhonchi, no crackles, no accessory muscle use. HEART: Irregularly irregular rate and rhythm, S1, S2 without murmur, rub or gallop. ABDOMEN: Soft, nontender, nondistended, normoactive bowel sounds, no guarding, no rebound, no hepatosplenomegaly, no masses. EXTREMITIES: 2+ pulses, warm, well-perfused, trace b/l pedal edema. Tenderness on palpation over the right great toe. NEUROLOGICAL: Cranial nerves II through XII grossly intact. Normal speech, gait not observed. PSYCH: Normal mood, normal affect. SKIN: Warm, dry, normal turgor, no rashes or lesions noted 07/11/[address]: Negative for any acute pathology 07/11/[address]: Impression: Status post left upper partial lobectomy with multiple surgical sutures in the left hilum Stable tiny right upper and left lung base nodule. Interval focal low-attenuation nodular opacity in the right middle lobe abutting the fissure on axial image 48 measuring 7 mm for which further evaluation with PET/CT or follow-up CT scan of the chest in 3 months is recommended in view of the clinical history of lung cancer CXR : Left rib fracture. No evidence of pneumonia. LABS HOSPITAL COURSE: Date of Admission:07/08/16 Date of Discharge: 07/16/16 Patient is a 65 year old lady with h/o COPD, RA, Lung ca with local reoccurance , benign adrenal mass, a-fib, DVT, hypotension, hep. C, thyriod nodules, PVD, HTN who BIB EMS with SOB admitted for acute hyoxic respiratory failure. She sounded congested, had occasional wheeze, crackles on admission, but CXR showed no pneumonia. However, was treated with IV Ceftriaxone which was stopped at Day 3 as there are no signs of infection or pneumonia. Patient was advised to use BiPap. But patient never used it overnight. Pulmonary were consulted. On initial days of admission, patient had atrial fibrillation with RVR rate uncontrolled, was given Diltiazem. CHADS VASC 2--has been maintained on AC ( xarelto at home- Rivaroxaban 20mg Daily), with h/o PE noted. Patient was admitted in Telemetry with continuous Cardiac monitoring. Cardiology was consulted. Plan was to do an ablation if rate was not controlled. But after 2 days, rate was controlled with diltiazem. Metoprolol was stopped and started on Digoxin. no prior known CVA (and none seen on CT head currently, and 2016 MRI brain) With discussed with the floor attending and spanisher, further evaluation was needed as outpatient about the DVT and PE in the past. So we could stop the anticogulation due to fall risk and increased intracranial bleed. Patient was advised to follow up with cardilogist, primary care and pulmonary due to high risk of thmroboembolism. The cause is unknown at this time if it is provoded or unprovoked PE. Patient's CHADSVASC is 2 and is not requied to be in anticogulation. If patient has detailed information, will try to get it. Called place to Dr. Woodson but couldn't get through. On IV Diltiazem 5mg IV PRN. Continue Rivaroxaban 20mg- since patient has a h/o frequent falls, risk of incracranial bleed is high. Fall precautions.As per cardiology, plan is ? Flecainide vs ablation . Cardiology consult appreciated.Daily Weights I's and O's Atypical chest pain Likely due to left rib fracture s/p mechanical fall a couple of weeks ago. Already on Methadone and Lidocaine patch hence will not give additional narcotics. Hypertension stable Metoprolol stopped Hx of heroin abuse On Methadone 65mg Daily (dose confirmed) Hx of Seizures Last seizure was 2 weeks ago despite being on keppra 500mg BID. No seizure activity noted this admission. Confirmed that patient is non compliant with medication.Neurology consult appreciated. Fall precautions . CT head negative for any acute pathology. Patient recently had an EEG done. Records of PCP's office received but don't have EEG report. Will try to get from her neurologist.Physical therapy requested Tremors of extremities likely metabolic vs infectious induced vs less likely Essential Tremor. Tremors less likely due to Hyperthyroidism Thyroid nodules Patient mentions that she has gained weight since last year. She did have thyroid ultrasound as outpatient but hasn't had any biopsy.Hasn't seen Aerographer since years. Free T4 normal, T3 Decreased and TSH decreased. Started her on Propanolol 120mg Daily. (Discussed with Dr. Chung and Dr. Encarnacion)Endocrinology consult appreciated. Would consider thyroid ultrasound as outpatient. # PVD:Continue ASA # H/o anxiety cont seroquel . 300 HS and 25 q AM PRN .Clonazepam 1mg PO BID # Active smoker Smoking cessation counseling Nicotine patch Plan of care explained to the patient. She verbalized understanding. Case seen and discussed with Dr. Encarnacion. Minutes to complete discharge: 45 Discharge Summary Reason For Visit: CHRONIC OBSTRUCTIVE PULMONARY DISEASE Current Active Problems COPD (chronic obstructive pulmonary disease) with emphysema (Acute) Generalized epilepsy (Acute) Tremor (Acute) A-fib (Chronic) Condition: Improved - Instructions Diet, Activity, Other Instructions: You were admitted in the hospital for respiratory problems and atrial fibrillation- rate was uncontrolled. I was able to get some medical records from Dr. Woodson your primary doctor. I called your primary doctor today but couldn't reach. You are taking Xarelto for pulmonary embolism and atrial fibrillation. As we discussed earlier, please be careful since you fell multiple times in the past 2 months. If you fall, the risk of bleeding is very high which may lead to permanent neurological damage. In order to prevent from it, please make sure you visit your Neurologist this week and control the seizure with medication. Right now, you are on Keppra 500mg BID. Please visit your spanisher, Testing Manager and Primary doctor this week. This is very important as we have adjusted few of your medications. Please take all the medication list with you when you visit them. Return to the Emergency department immediately if your symptoms worsen or if you develop any new symptoms. low fat diet , low cholesterol diet Referrals: Sujit Cervantes MD [Staff Physician] - Surya Chung MD [Staff Physician] - Disposition: HOME - Home Medications Comprehensive Discharge Medication List: Ambulatory Orders Methadone [Dolophine -] 65 mg PO DAILY 10/19/14 Tiotropium [place] [Spiriva] 1 inh PO BID 10/19/14 Albuterol Sulfate Inhaler - [Ventolin HFA Inhaler -] 2 inh PO Q4H PRN 12/08/15 Rivaroxaban [Xarelto -] 20 mg PO DAILY 12/10/15 Fluticasone/Salmeterol [Advair 250-50 Diskus] 1 puff IN BID 07/08/16 Gabapentin [Neurontin] 300 mg PO TID 07/08/16 Albuterol 2.5/Ipratropium 0.5 [Duoneb -] 1 amp NEB Q6H PRN #30 amp 07/16/16 Albuterol 2.5/Ipratropium 0.5 [Duoneb -] 1 amp NEB QIDR 30 Days 07/16/16 Digoxin [Lanoxin -] 0.125 mg PO DAILY #30 tablet 07/16/16 Diltiazem [Cardizem -] 90 mg PO QID #120 tablet 07/16/16 Docusate Sodium [Colace -] 100 mg PO TID #100 capsule 07/16/16 Levetiracetam [Keppra -] 500 mg PO BID #60 tab 07/16/16 Levetiracetam [Keppra -] 500 mg PO BID #60 tablet 07/16/16 Lidocaine 5% Patch [Lidoderm -] 1 patch TP DAILY #15 patch 07/16/16 Nicotine Patch [Nicoderm Patch -] 1 patch TD DAILY #7 patch 07/16/16 Prednisone [Deltasone -] 40 mg PO DAILY #30 tablet 07/16/16 Propranolol HCl [Inderal LA -] 120 mg PO DAILY #30 cap 07/16/16 Quetiapine Fumarate [Seroquel -] 25 mg PO DAILY PRN #30 tablet 07/16/16 Quetiapine Fumarate [Seroquel -] 300 mg PO HS #30 tablet 07/16/16 This patient is new to me today: No Emergency Visit: Yes ED Registration Date: 05/07/17 Care time: The patient presented to the Emergency Department on the above date and was hospitalized for further evaluation of their emergent condition. Critical Care patient: No - Discharge Referral Referred to [facility] No
--- NOTE | 2016-07-16 09:35 | PN ---
Progress Note, Physician Chief Complaint: afib, a.e. copd, chf History of Present Illness: sob much better no cp, palpit, leg swelling + cigs hx - Current Medication List Current Medications: Active Medications Acetaminophen (Tylenol -) 650 mg PO Q6H PRN PRN Reason: FEVER OR PAIN Last Admin: 07/13/16 19:44 Dose: 650 mg Albuterol/Ipratropium (Duoneb -) 1 amp NEB Q6H PRN PRN Reason: SHORTNESS OF BREATH Last Admin: 07/15/16 10:54 Dose: 1 amp Albuterol/Ipratropium (Duoneb -) 1 amp NEB QIDR [facility] Last Admin: 07/16/16 06:46 Dose: 1 amp Clonazepam (Klonopin -) 1 mg PO BID [facility] Last Admin: 07/16/16 09:18 Dose: 1 mg Digoxin (Lanoxin -) 0.125 mg PO DAILY [facility] Last Admin: 07/16/16 09:18 Dose: 0.125 mg Diltiazem HCl (Cardizem -) 90 mg PO QID [facility] Last Admin: 07/16/16 09:16 Dose: 90 mg Docusate Sodium (Colace -) 100 mg PO TID [facility] Last Admin: 07/16/16 05:50 Dose: 100 mg Furosemide (Lasix -) 40 mg PO DAILY [facility] Last Admin: 07/16/16 09:18 Dose: 40 mg Gabapentin (Neurontin -) 300 mg PO TID [facility] Last Admin: 07/16/16 05:50 Dose: 300 mg Levetiracetam (Keppra -) 500 mg PO BID [facility] Last Admin: 07/16/16 09:18 Dose: 500 mg Lidocaine (Lidoderm Patch -) 1 patch TP DAILY [facility] Last Admin: 07/16/16 09:15 Dose: 1 patch Methadone HCl 40 mg/ Methadone (HCl 20 mg/ Methadone HCl 5 mg) 65 mg PO DAILY@ 0600 [facility] Last Admin: 07/16/16 05:51 Dose: 65 mg Nicotine (Nicoderm Patch -) 21 mg TD DAILY PRN PRN Reason: NICOTINE REPLACEMENT RX Last Admin: 07/14/16 09:38 Dose: 21 mg Pantoprazole Sodium (Protonix -) 40 mg PO DAILY [facility] Last Admin: 07/16/16 09:18 Dose: 40 mg Prednisone (Deltasone -) 40 mg PO DAILY [facility] Last Admin: 07/16/16 09:18 Dose: 40 mg Propranolol HCl (Inderal La -) 120 mg PO DAILY [facility] Last Admin: 07/16/16 09:18 Dose: 120 mg Quetiapine Fumarate (Seroquel -) 300 mg PO HS [facility] Last Admin: 07/15/16 21:10 Dose: 300 mg Quetiapine Fumarate (Seroquel -) 25 mg PO DAILY PRN PRN Reason: ANXIETY Last Admin: 07/13/16 16:18 Dose: 25 mg Rivaroxaban (Xarelto -) 20 mg PO HS [facility] Last Admin: 07/15/16 21:11 Dose: 20 mg Fluticasone/Salmeterol (Advair 100mcg/50mcg -) 1 puff IH BID [facility] Last Admin: 07/16/16 09:21 Dose: 1 puff - Objective Vital Signs: Vital Signs Temperature 97.8 F 07/16/16 05:00 Pulse Rate 93 H 07/16/16 09:18 Respiratory Rate 20 07/16/16 05:00 Blood Pressure 138/45 07/16/16 05:00 O2 Sat by Pulse Oximetry (%) 93 L 07/15/16 21:00 Constitutional: Yes: No Distress, Calm Eyes: No: Sclera Icterus HENT: No: Nasal Congestion Cardiovascular: Yes: Pulse Irregular, S1, S2, Other (PMI non diplaced). No: Gallop, Murmur Respiratory: Yes: CTA Bilaterally, Wheezes. No: Accessory Muscle Use, Rales Gastrointestinal: Yes: Normal Bowel Sounds, Soft. No: Tenderness Musculoskeletal: Yes: Other (No kyphosis) Extremities: No: Cold Edema: No Integumentary: No: Jaundice Neurological: Yes: Alert, Oriented (x3) Psychiatric: No: Agitated Labs: CBC, BMP 07/14/16 05:40 07/14/16 05:40 INR, PTT INR 1.27 (0.82-1.09) H 07/08/16 03:50 - ....Imaging EKG: Other (tele: AF, good HRs) Assessment/Plan mibi 2012: no ischemia Echo 07/2016: nl lv/rv. 1+ lae, 1+ mr/tr Echo 12/2015: nl LVSF; nl RV; mild MR/TR; RVSP 30-40 a/p: 66 f smoker with hx pafib, hx pe/dvt, seizures and frequent falls with injury, copd, htn, anxiety, smoking, lung ca s/p resection 2012, RA, adrenal adenoma, h/o hep c, heroin use on methadone, [place] disaese, who presents with sob/afib atrial fibrillation -last saw lydia in office 2013: sinus resting HR 54, ongoing palpitations ( not all correlated with afib on prior monitor per his notes), could not incr AVN blockers further -pt does not seem to feel her afib as she denies any palpitations here or at home on DOA -here with rvr initially. now on dilt, dig, inderal and HR controlled. Cont same for now--observe closely for signs of incr sob/bronchospasm on inderal -if rapid AF tx is complicated by sinus shazia (i.e. SSS), need to consider rhythm control (flecainide vs ablation), though she previously deferred ablation with dr freeman -CHADS VASC 2--has been maintained on AC (xarelto at home), with h/o PE noted. -she has had recent frequent seizures and falls with acute and old rib fractures on admission xrays, reports recent ankle injury from fall. -the ? of AC is not just an AF question. with CHADS-VASC of 2 and no prior known cva (and none seen on CT head currently, and 2016 MRI brain), it is reasonable to consider stopping AC at least until her outpt neuro w/u (sees roland) is completed and can observe if her sz's and falls can be adequately controlled. risk of cardioembolic CVA is approx 2%/year and it seems that over the next few months her risk of falling and injuring herself is higher than this. HOWEVER it is unknown (and unknowable at this point) to me whether prior PE was provoked or unprovoked, and whether she had hypercoagulable workup done, as this pre-dates all available notes in [facility] which I reviewed today. pt reports to dr mclain that she had recent LLE DVT few mo ago (changed coumadin to xarelto then, ? compliance issue with coumadin f/u and INRs). therefore, risks of life-threatening PE could potentially be prohibitive here, depending on that info--hence need to defer decision about stopping AC to pt's PMD who knows her from before, and if her VTE risk has not previously been well defined, it would need to be done as outpatient. therefore, i cannot rec stopping AC at this time. d/w'd dr mclain and her resident the above consideration, and need for appropriate pt counselling and outpt transfer of this important care consideration. i d/w'd pt as well today and she agrees to see pmd dr gonzalez to discuss this shortly after goes home. sob, copd, acute diastolic CHF -prior dry weights 179-180 when hospitalized here 2014 and 12/2015 -wt here down from 199 to 192 with diuresis -ER cxr reviewed: incr'd interstitial marking vs prior ? interstitial pulm edema pattern (perihilar predominance noted), probable vascular redistribution ( no effusions) -BNP 6K, from 900 baseline -good response to lasix 40 iv qd here, now transitioned to 40 po. 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 Ongoing mgm't per pulm/pmd h/o PE: -? details of prior event -on xarelto. See discussion above. HTN: -controlled on current meds h/o heroin abuse: -on methadone maintenance
[2016-07-16] MEDS ORDERED: predniSONE 20 MG TABLET (UD) PO SCH (10:00)
[2016-07-16] MEDS ORDERED: FUROSEMIDE 40 MG TABLET (FP) PO SCH (10:00)
[2016-07-16 10:15] VITALS: BP 138/67; TEMP 98.2
[2016-07-16 10:48] VITALS: PULSE 103
[2016-07-17 08:07] LABS: THYROID STIM IMMUNOGLOBULIN 202 % (0-139)
== END 2016-07-16 11:31 | disposition home or self-care (01) | DRG 133 ==
LOC: JER 03:23 → JERBED 05:52 → UNDOADMIN 05:58 → JERBED 05:58 → J4W 23:11
PROVIDERS: ADMIT Internal Medicine; ATTEND Internal Medicine
PROC: 5A09457 Assistance with Respiratory Ventilation, 24-96 Consecutive Hours, Continuous Positive Airway Pressure (ICD-10-PCS; principal; 2016-07-08)
PROC: HZ91ZZZ Pharmacotherapy for Substance Abuse Treatment, Methadone Maintenance (ICD-10-PCS; 2016-07-08)
DX: J96.01 Acute respiratory failure with hypoxia (principal); I73.9 Peripheral vascular disease, unspecified; M06.9 Rheumatoid arthritis, unspecified; C34.2 Malignant neoplasm of middle lobe, bronchus or lung; E04.1 Nontoxic single thyroid nodule; B19.20 Unspecified viral hepatitis C without hepatic coma; Z72.0 Tobacco use; S22.42XA Multiple fractures of ribs, left side, initial encounter for closed fracture; W19.XXXA Unspecified fall, initial encounter; Y93.9 Activity, unspecified; Y92.9 Unspecified place or not applicable; Y99.9 Unspecified external cause status; J44.1 Chronic obstructive pulmonary disease with (acute) exacerbation; F41.9 Anxiety disorder, unspecified; D35.00 Benign neoplasm of unspecified adrenal gland; I73.1 Thromboangiitis obliterans [Buerger's disease]; R07.89 Other chest pain; G40.909 Epilepsy, unspecified, not intractable, without status epilepticus; I11.0 Hypertensive heart disease with heart failure; I50.31 Acute diastolic (congestive) heart failure; Z91.81 History of falling; R25.1 Tremor, unspecified; I48.2 Chronic atrial fibrillation; E66.9 Obesity, unspecified; Z68.34 Body mass index [BMI] 34.0-34.9, adult; Z86.711 Personal history of pulmonary embolism
CPT/HCPCS: 36415; 36600; 70450-TC; 71010-TC; 71020-TC; 71101-TC; 71250-TC; 80048; 80053; 80162; 80307; 81003; 81015; 82375; 82550; 82553; 82803; 83036; 83050; 83735; 83880; 84439; 84443; 84445; 84481; 84484; 85025; 85027; 85610; 85730; 86376; 86800; 87633; 87804; 87899; 93005; 93010; 93306-TC; 93971-TC; 94640; 94660; 94761; 97116-GP; 97162-GP; 99285-25

== ENCOUNTER 2016-08-13 08:57 | Inpatient (IN) | payer OTHER ==
--- NOTE | 2016-08-13 09:18 | PDOC ---
History of Present Illness - General Chief Complaint: Shortness of Breath Stated Complaint: SOB History Source: Patient Exam Limitations: Other (confused ) - History of Present Illness Initial Comments: 08/13/16 09:22 This is a 65 yo F with PMH mental illness, COPD, RA, Lung ca with local reoccurance, benign adrenal mass, a-fib, DVT, hypotension, hep. C, thyriod nodules, PVD, HTN, recently admitted for COPD exacerbation, who presents due to L foot pain and sob. Wed patient was stuck my a needle in lateral dorsal aspect of L foot near 5th toe. Shorty after L 5th toe and surrounding area became erythematous, edematous and painful. She developed f/c and malaise. This morning she woke up with increased malaise, perfuse cold sweats, sob, confusion , polyuria and increased toe pain. She denies chest pain, n/v, loc, palpitations , abd pain, diarrhea, constipation, dysuria. She has a chronic cough. She had a tetanus shot less than a year ago. During last admission she had a fib that was converted with metoprolol and she was then placed on digoxin. She is currently on prednisone. She is on methadone but denies lowering dose or using other drugs 08/13/16 10:37 08/13/16 13:14 08/13/16 16:37 Past History - Travel Traveled outside of the country in the last 30 days: No Close contact w/someone who was outside of country & ill: No - Past Medical History Allergies/Adverse Reactions: Allergies Allergy/AdvReac Type Severity Reaction Status Date / Time No Known Allergies Allergy Verified 08/13/16 09:40 Home Medications: Ambulatory Orders Methadone [Dolophine -] 65 mg PO DAILY 10/19/14 Tiotropium [place] [Spiriva] 1 inh PO BID 10/19/14 Albuterol Sulfate Inhaler - [Ventolin HFA Inhaler -] 2 inh PO Q4H PRN 12/08/15 Rivaroxaban [Xarelto -] 20 mg PO DAILY 12/10/15 Fluticasone/Salmeterol [Advair 250-50 Diskus] 1 puff IN BID 07/08/16 Gabapentin [Neurontin] 300 mg PO TID 07/08/16 Albuterol 2.5/Ipratropium 0.5 [Duoneb -] 1 amp NEB Q6H PRN #30 amp 07/16/16 Albuterol 2.5/Ipratropium 0.5 [Duoneb -] 1 amp NEB QIDR 30 Days 07/16/16 Digoxin [Lanoxin -] 0.125 mg PO DAILY #30 tablet 07/16/16 Diltiazem [Cardizem -] 90 mg PO QID #120 tablet 07/16/16 Docusate Sodium [Colace -] 100 mg PO TID #100 capsule 07/16/16 Levetiracetam [Keppra -] 500 mg PO BID #60 tab 07/16/16 Levetiracetam [Keppra -] 500 mg PO BID #60 tablet 07/16/16 Lidocaine 5% Patch [Lidoderm -] 1 patch TP DAILY #15 patch 07/16/16 Nicotine Patch [Nicoderm Patch -] 1 patch TD DAILY #7 patch 07/16/16 Prednisone [Deltasone -] 40 mg PO DAILY #30 tablet 07/16/16 Propranolol HCl [Inderal LA -] 120 mg PO DAILY #30 cap 07/16/16 Quetiapine Fumarate [Seroquel -] 25 mg PO DAILY PRN #30 tablet 07/16/16 Quetiapine Fumarate [Seroquel -] 300 mg PO HS #30 tablet 07/16/16 Unobtainable 08/13/16 Anemia: No Asthma: No Cancer: Yes (lung, adrenal) Cardiac Disorders: Yes (afib) CVA: No COPD: Yes CHF: No Dementia: No Diabetes: No GI Disorders: Yes (hep c) Disorders: No HTN: Yes Hypercholesterolemia: No Kidney Stones: No Liver Disease: Yes (hep C) Psychiatric Problems: Yes (anxiety) Suicide Attempt (Hx): No Seizures: Yes Thyroid Disease: Yes (THYROID NODULES) - Surgical History Abdominal Surgery: No Appendectomy: No Cardiac Surgery: No Cholecystectomy: No Lung Surgery: Yes (LEFT UPPER LOBE LOBECTOMY IN 08/2012) Neurologic Surgery: No Orthopedic Surgery: No - Family Disease History Family Disease History: Other: Mother (non contributory) - Reproductive History PID: No - Immunization History Immunization Up to Date: Yes - Psycho/Social/Smoking Cessation Hx Anxiety: No Suicidal Ideation: No Smoking Status: No Smoking History: Current every day smoker Have you smoked in the past 12 months: Yes Number of Cigarettes Smoked Daily: 20 If you are a former smoker, when did you quit?: 03-17-13 'Breaking Loose' booklet given: 04/17/16 Hx Alcohol Use: No Drug/Substance Use Hx: No (on methadone) Substance Use Type: None Hx Substance Use Treatment: Yes (methadone clinic) Review of Systems - Review of Systems Able to Perform ROS?: Yes Is the patient limited Estonian proficient: No Constitutional: Yes: Chills, Fever, Malaise, Night Sweats, Weakness HEENTM: No: Nose Congestion, Hearing Loss, Throat Pain, Difficulty Swallowing Respiratory: Yes: Cough, Shortness of Breath, Wheezing. No: Hemoptysis Cardiac (ROS): No: Chest Pain, Edema, Lightheadedness, Palpitations ABD/GI: No: Abdominal Distended, Constipated, Diarrhea, Nausea, Rectal Bleeding , Vomiting, Abdominal cramping, Tarry Stools : No: Dysuria, Flank Pain Musculoskeletal: Yes: Joint Pain, Joint Swelling (L 5th toe ). No: Muscle Pain Integumentary: Yes: Erythema (L 5th toe ). No: Pruritus, Rash Neurological: No: Headache, Numbness, Paresthesia, Seizure Psychiatric: Yes: Anxiety, Depression, Frequent Crying, Stressors, Emotional Problems, Mood Swings Endocrine: Yes: Excessive Sweating. No: Increased Thirst, Unexplained Weight Loss, Change in Weight Hematologic/Lymphatic: No: Anemia, Blood Clots, Easy Bleeding, Easy Bruising All Other Systems: Reviewed and Negative *Physical Exam - Physical Exam Comments: 08/13/16 11:34 08/13/16 11:34 08/13/16 09:30 GENERAL: NAD AAOx3 somewhat confused, forgetful HEENT: PERRLA EOMI sclera anicteric, conjunctiva clear. CV: irregularly irregular s1s2 PULM diffuse wheezes GI: nondistended, soft, nontender, no mass, normoactive bowel sounds NEURO: CN grossly intact SKIN: Left 5th toe erythematous, edematous, painful with surrounding cellulitis and limited ROM due to pain. 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 Also in a fib with RVR Give metoprolol IV and 1L NS IV order cbc diff, cmp, lactic acid, trop, card profile, cxr, L foot x ray, ekg, UA , blood and urine cultures 08/13/16 11:40 EKG a fib rvr 125, normal axis, st depressions in lateral leads v4-6; may be strain due to demand. will repeat wbc 16; was 16 on d/c, patient on prednisone. in setting of foot infection will start vanco and zosyn 08/13/16 11:41 gave 25 Lopressor PO unable to obtain adequate vascular access; decision made to place central line. patient consents. R IJ line placed. Patient O2 sat 88% on 2L, increased to 4L, another duoneb given as well as medrol 125 IV 08/13/16 15:58 cxr no change from prior, R IJ central line in place Foot x ray appears wnl 08/13/16 16:01 08/13/16 16:37 *DC/Admit/Observation/Transfer Diagnosis at time of Disposition: A-fib, Rapid atrial fibrillation, Respiration disorder, Injury, foot, Cellulitis - Discharge Dispostion Admit: Yes - Referrals Referrals: STAFF,NOT ON [Primary Care Provider] -
[2016-08-13 09:44] VITALS: BMI 28.3
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
[2016-08-13] MEDS ORDERED: ALBUTEROL SO4 2.5/IPRATROPIUM 0.5 INH SOL 3 ML VIAL.NEB. NEB ONE ×4 (10:04→16:59)
[2016-08-13] MEDS ORDERED: METOPROLOL TARTRATE 5 MG/5 ML VIAL IVPUSH ONE (10:12)
[2016-08-13] MEDS ORDERED: METOPROLOL TARTRATE 5 MG/5 ML VIAL ONE (11:03)
[2016-08-13] MEDS ORDERED: SODIUM CHLORIDE 1,000 ML IV STA (11:17)
[2016-08-13 12:06] LABS: MCH 30.7 pg (25.7-33.7); MCHC 32.3 g/dl (32.0-36.0); MEAN CELL VOLUME 95.2 fl (80-96); PLATELET COUNT 226 K/MM3 (134-434); WHITE BLOOD COUNT 16.6 K/mm3 (4.0-10.0)
[2016-08-13] MEDS ORDERED: VANCOMYCIN 1 MG in DEXTROSE 5%-WATER - 250 ML IVPB ONE (12:24)
[2016-08-13] MEDS ORDERED: PIPERACILLIN/TAZOB 3.375 GM 3.375 GM in DEXTROSE 5%-WATER - 50 ML IVPB ONE (12:24)
[2016-08-13 12:33] LABS: ANION GAP 11 (8-16); CALCIUM 8.7 mg/dL (8.5-10.1); CO2 29 mmol/L (21-32); COCKROFT - GAULT 54.2555; CREATININE 1.2 mg/dL (0.55-1.02); GLUCOSE,RANDOM 102 mg/dL (74-106); SGOT/AST 28 U/L (15-37); SGPT/ALT 40 U/L (12-78)
[2016-08-13 12:36] LABS: ALK PHOS 83 U/L (45-117); BILIRUBIN,TOTAL 0.7 mg/dL (0.2-1.0); TOT PROT 7.5 g/dl (6.4-8.2); TROPONIN I < 0.02 ng/ml (0.00-0.05)
[2016-08-13 13:57] LABS: PLATELET ESTIMATE ADEQUATE (NORMAL)
--- NOTE | 2016-08-13 14:01 | EKG ---
Test Reason : Blood Pressure : / mmHG Vent. Rate : 125 BPM Atrial Rate : 394 BPM P-R Int : 000 ms QRS Dur : 074 ms QT Int : 302 ms P-R-T Axes : 000 026 252 degrees QTc Int : 435 ms ATRIAL FIBRILLATION WITH RAPID VENTRICULAR RESPONSE ABNORMAL ECG WHEN COMPARED WITH ECG OF 08-JUL-2016 03:32, T WAVE VARIATION Confirmed by HEMALATHA ROGEL MD ([id number]) on 08/13/2016 2:01:01 PM Referred By: Confirmed By:HEMALATHA ROGEL MD
[2016-08-13] MEDS ORDERED: VANCOMYCIN 1 GRAM (PRE-DOCKED) 250 ML IVPB ONE (14:02)
[2016-08-13] MEDS ORDERED: PIPERACILLIN/TAZOB 3.375 GM 50 ML IVPB ONE (14:02)
[2016-08-13] MEDS ORDERED: METOPROLOL TARTRATE 25 MG TABLET (FP) PO ONE (14:31)
[2016-08-13] MEDS ORDERED: LORAZEPAM CARPU-JECT 2 MG/ML DISP.SYRIN IM ONE (14:35)
[2016-08-13] MEDS ORDERED: diazePAM CARPU-JECT 10 MG/2 ML DISP.SYRIN IM ONE (14:37)
[2016-08-13] MEDS ORDERED: diazePAM CARPU-JECT 10 MG/2 ML DISP.SYRIN ONE (14:47)
[2016-08-13] MEDS ORDERED: METOPROLOL TARTRATE 25 MG TABLET (FP) ONE (14:47)
[2016-08-13] MEDS ORDERED: methylPREDNISolone NA SUCC 125 MG/2 ML VIAL IVPB ONE (16:00)
[2016-08-13] MEDS ORDERED: BUDESONIDE/FORMETEROL FUMARATE 160/4.5 mcg INHALER IH ONE (16:05)
[2016-08-13] MEDS ORDERED: methylPREDNISolone NA SUCC 125 MG/2 ML VIAL ONE (16:59)
[2016-08-13 19:24] LABS: URINE MARIJUANA THC POSITIVE ng/ml (CUTOFF=50)
[2016-08-13 19:36] LABS: URINE APPEARANCE CLEAR; URINE BILIRUBIN NEGATIVE (NEGATIVE); URINE BLOOD NEGATIVE (NEGATIVE); URINE COLOR YELLOW; URINE GLUCOSE (UA) NEGATIVE (NEGATIVE); URINE KETONE NEGATIVE (NEGATIVE); URINE NITRITE NEGATIVE (NEGATIVE); URINE PROTEIN NEGATIVE (NEGATIVE); URINE UROBILINOGEN NEGATIVE E.U./dl (0.2-1.0)
[2016-08-13 20:04] LABS: URINE LEUK ESTERASE TRACE (NEGATIVE)
[2016-08-13 20:24] LABS: URINE BACTERIA RARE /hpf (NONE SEEN); URINE HYALINE CAST 4 /lpf; URINE MUCUS RARE; URINE RBC 4 /hpf (0-3); URINE WBC 1 /hpf (3-5)
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
--- NOTE | 2016-08-13 21:48 | PDOC ---
*Physical Exam - Vital Signs Last Vital Signs Temp Pulse Resp BP Pulse Ox 98.2 F 102 H 15 101/82 100 08/13/16 14:50 08/13/16 14:50 08/13/16 09:25 08/13/16 14:50 08/13/16 14:50 ED Treatment Course - LABORATORY CBC & Chemistry Diagram: 08/13/16 11:45 08/13/16 11:45 - ADDITIONAL ORDERS Additional order review: Laboratory Results 08/13/16 08/13/16 11:45 11:45 Sodium 144 Potassium 3.8 Chloride 104 Carbon Dioxide 29 Anion Gap 11 BUN 12 D Creatinine 1.2 H Creat Clearance w eGFR 45.23 Random Glucose 102 D Lactic Acid 2.0 Calcium 8.7 Total Bilirubin 0.7 D AST 28 D ALT 40 D Alkaline Phosphatase 83 D Creatine Kinase 92 Troponin I < 0.02 Total Protein 7.5 Albumin 3.0 L 08/13/16 11:45 RBC 4.96 MCV 95.2 MCHC 32.3 RDW 15.0 MPV 9.0 Neutrophils % 74.0 Lymphocytes % 14.0 D Monocytes % 9.0 D Eosinophils % 1.0 D Basophils % 0.0 - Medications Given in the ED: ED Medications Discontinued Medications Generic Name Dose Route Start Last Admin Trade Name Freq PRN Reason Stop Dose Admin Albuterol/Ipratropium 1 amp 08/13/16 10:04 08/13/16 10:50 Duoneb - NEB 08/13/16 10:05 1 amp ONCE ONE Administration Albuterol/Ipratropium 1 amp 08/13/16 15:53 08/13/16 17:30 Duoneb - NEB 08/13/16 15:54 1 amp ONCE ONE Administration Budesonide/Formoterol Fumarate 2 puff 08/13/16 16:05 08/13/16 17:02 Symbicort 160/4.5mcg - IH 08/13/16 16:06 Not Given ONCE ONE Diazepam 5 mg 08/13/16 14:37 08/13/16 14:50 Valium Injection - IM 08/13/16 14:38 5 mg ONCE ONE Administration Sodium Chloride 1,000 mls @ 1,000 mls/hr 08/13/16 11:17 08/13/16 11:15 Normal Saline - IV 08/13/16 12:16 1,000 mls/hr ASDIR STA Administration Vancomycin HCl 1 mg/ Dextrose 250 mls @ 250 mls/hr 08/13/16 12:24 08/13/16 16: 30 IVPB 08/13/16 13:23 250 mls/hr ONCE ONE Administration Protocol Piperacillin Sod/Tazobactam 50 mls @ 100 mls/hr 08/13/16 12:24 08/13/16 15:35 Sod 3.375 gm/ Dextrose IVPB 08/13/16 12:53 100 mls/hr ONCE ONE Administration Protocol Lorazepam 2 mg 08/13/16 14:35 08/13/16 14:45 Ativan Injection - IM 08/13/16 14:36 Not Given ONCE ONE Methylprednisolone Sodium Succinate 125 mg 08/13/16 16:00 08/13/16 16:50 Solu-Medrol - IVPB 08/13/16 16:01 125 mg ONCE ONE Administration Metoprolol Tartrate 5 mg 08/13/16 10:12 08/13/16 11:10 Lopressor Injection - IVPUSH 08/13/16 10:13 5 mg ONCE ONE Administration Metoprolol Tartrate 25 mg 08/13/16 14:31 08/13/16 14:50 Lopressor - PO 08/13/16 14:32 25 mg ONCE ONE Administration *DC/Admit/Observation/Transfer Diagnosis at time of Disposition: Rapid atrial fibrillation, Respiration disorder A-fib Qualifiers: Atrial fibrillation type: chronic Qualified Code(s): I48.2 - Chronic atrial fibrillation Injury, foot Qualifiers: Encounter type: initial encounter Laterality: left Qualified Code(s): S99.922A - Unspecified injury of left foot, initial encounter Cellulitis Qualifiers: Site of cellulitis: extremity Site of cellulitis of extremity: lower extremity Laterality: left Qualified Code(s): L03.116 - Cellulitis of left lower limb - Discharge Dispostion Admit: Yes
[2016-08-13] MEDS ORDERED: clonazePAM 0.5 MG TABLET ONE (21:49)
[2016-08-13] MEDS ORDERED: QUEtiapine FUMARATE 100 MG TABLET (FP) ONE (21:50)
[2016-08-13] MEDS ORDERED: levETIRAcetam 500 MG TABLET (FP) PO ONE (21:50)
[2016-08-13] MEDS ORDERED: clonazePAM 0.5 MG TABLET PO ONE (22:00)
[2016-08-13] MEDS ORDERED: QUEtiapine FUMARATE 300 MG TABLET PO ONE (22:00)
[2016-08-13] MEDS: levETIRAcetam 500 MG TABLET (FP) PO SCH (22:07)
[2016-08-14 07:31] LABS: BASOPHIL 0.4 % (0-2.0); MCH 31.1 pg (25.7-33.7); MCHC 32.8 g/dl (32.0-36.0); MEAN CELL VOLUME 94.7 fl (80-96); PLATELET COUNT 169 K/MM3 (134-434); WHITE BLOOD COUNT 14.8 K/mm3 (4.0-10.0)
[2016-08-14] MEDS ORDERED: TIOTROPIUM BROMIDE 18 MCG/INH (DEVICE W/ 5 CAPSULES) IH ONE (08:39)
[2016-08-14] MEDS ORDERED: METHADONE HCL 10 MG TABLET ONE (10:13)
[2016-08-14] MEDS ORDERED: METHADONE HCL 40 MG DISPERSABLE TABLET ONE (10:13)
[2016-08-14] MEDS: RIVAROXABAN 20 MG TABLET PO SCH (10:30)
[2016-08-14] MEDS: levETIRAcetam 500 MG TABLET (FP) PO SCH ×2 (10:30→21:15)
[2016-08-14] MEDS: METHADONE HCL 10 MG TABLET PO SCH (10:30)
[2016-08-14] MEDS: DIGOXIN 0.125 MG TABLET (FP) PO SCH (10:30)
[2016-08-14 11:14] LABS: ALBUMIN 2.7 g/dl (3.4-5.0); BILIRUBIN,TOTAL 0.5 mg/dL (0.2-1.0); CALCIUM 8.9 mg/dL (8.5-10.1); COCKROFT - GAULT 54.2555; CREATININE 1.2 mg/dL (0.55-1.02); TOT PROT 6.7 g/dl (6.4-8.2)
[2016-08-14] MEDS: ACLIDINIUM BROMIDE 400 MCG/INH AERO.POWD IH SCH ×2 (11:55→23:06)
[2016-08-14] MEDS: FLUTICASONE/SALMETEROL 100 MCG/50 MCG DISKUS IH SCH ×2 (11:55→21:22)
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
[2016-08-14 13:54] LABS: TROPONIN I < 0.02 ng/ml (0.00-0.05)
[2016-08-14] MEDS ORDERED: QUEtiapine FUMARATE 25 MG TABLET (FP) PO ONE (15:28)
[2016-08-14] MEDS ORDERED: VANCOMYCIN 1 MG in DEXTROSE 5%-WATER - 250 ML IVPB ONE (15:29)
[2016-08-14] MEDS ORDERED: PIPERACILLIN/TAZOB 3.375 GM 3.375 GM in DEXTROSE 5%-WATER - 50 ML IVPB ONE (15:29)
--- NOTE | 2016-08-14 15:32 | CONSULT ---
Consult Consult Specialty:: infectious diseases Reason for Consultation:: left foot cellulitits - History of Present Illness Chief Complaint: left foot pain History of Present Illness: 66 yo F on methadone (prior heroin user), COPD, RA, lung CA, afib, DVT, hep C, PVD, HTN presents with L foot pain and SOB. Patient is unreliable historian- patient is on methadone and keeps on changing story according to her she says that some woman bumped on her foot couple of days back and then she started getting swelling and pain in the left leg Another history according to the notes is that she sufered needle stick injury to the eft foot,though i could notsee any pearson on the foot she says she has been having fevers. She also c/o intermittent SOB c/w her history of COPD. - History Source History Provided By: Patient, Medical Record Limitations to Obtaining History: Poor Historian - Past Medical History Cardio/Vascular: Yes: AFIB, HTN, Hyperlipdemia Pulmonary: Yes: COPD Gastrointestinal: Yes: Other (HEP C) Hepatobiliary: Yes: Hepatitis C Infectious Disease: Yes: Other (recent hx of admission to the [facility] for pneumonia ) Psych: Yes: Addictions (WAS ON 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), Anxiety Musculoskeletal: Yes: Chronic low back pain Endocrine: Yes: Other (benign adrenal nodule s/p bx) - Alcohol/Substance Use Hx Alcohol Use: No History of Substance Use: reports: None - Smoking History Smoking history: Current every day smoker Have you smoked in the past 12 months: Yes Aproximately how many cigarettes per day: 20 If you are a former smoker, when did you quit?: 03-17-13 - Social History Usual Living Arrangement: Alone (considered w/a terminally ill condition which enables her get the single room she is currently in.) History of Recent Travel: No Home Medications - Allergies Allergies/Adverse Reactions: Allergies Allergy/AdvReac Type Severity Reaction Status Date / Time No Known Allergies Allergy Verified 08/13/16 09:40 - Home Medications Home Medications: Ambulatory Orders Methadone [Dolophine -] 65 mg PO DAILY 10/19/14 Tiotropium [place] [Spiriva] 1 inh PO BID 10/19/14 Albuterol Sulfate Inhaler - [Ventolin HFA Inhaler -] 2 inh PO Q4H PRN 12/08/15 Rivaroxaban [Xarelto -] 20 mg PO DAILY 12/10/15 Fluticasone/Salmeterol [Advair 250-50 Diskus] 1 puff IN BID 07/08/16 Gabapentin [Neurontin] 300 mg PO TID 07/08/16 Albuterol 2.5/Ipratropium 0.5 [Duoneb -] 1 amp NEB Q6H PRN #30 amp 07/16/16 Albuterol 2.5/Ipratropium 0.5 [Duoneb -] 1 amp NEB QIDR 30 Days 07/16/16 Digoxin [Lanoxin -] 0.125 mg PO DAILY #30 tablet 07/16/16 Diltiazem [Cardizem -] 90 mg PO QID #120 tablet 07/16/16 Docusate Sodium [Colace -] 100 mg PO TID #100 capsule 07/16/16 Levetiracetam [Keppra -] 500 mg PO BID #60 tab 07/16/16 Levetiracetam [Keppra -] 500 mg PO BID #60 tablet 07/16/16 Lidocaine 5% Patch [Lidoderm -] 1 patch TP DAILY #15 patch 07/16/16 Nicotine Patch [Nicoderm Patch -] 1 patch TD DAILY #7 patch 07/16/16 Prednisone [Deltasone -] 40 mg PO DAILY #30 tablet 07/16/16 Propranolol HCl [Inderal [place] -] 120 mg PO DAILY #30 cap 07/16/16 Quetiapine Fumarate [Seroquel -] 25 mg PO DAILY PRN #30 tablet 07/16/16 Quetiapine Fumarate [Seroquel -] 300 mg PO HS #30 tablet 07/16/16 Unobtainable 08/13/16 Clonazepam [Klonopin -] 1 mg PO BID 08/14/16 Family Disease History - Family Disease History Family Disease History: Other: Father (ETOH DEPENDENT), Mother (HAD CVA AND ) Review of Systems - Review of Systems Constitutional: reports: Fever Eyes: reports: No Symptoms HENT: reports: No Symptoms Neck: reports: No Symptoms Cardiovascular: reports: No Symptoms Respiratory: reports: SOB, SOB on Exertion Gastrointestinal: reports: No Symptoms Genitourinary: reports: No Symptoms Musculoskeletal: reports: Extremity Pain, Muscle Pain, Other Integumentary: reports: No Symptoms Neurological: reports: No Symptoms Endocrine: reports: No Symptoms Hematology/Lymphatic: reports: No Symptoms Psychiatric: reports: No Symptoms Physical Exam Vital Signs: Vital Signs Temperature 97.4 F L 08/14/16 07:40 Pulse Rate 96 H 08/14/16 10:25 Respiratory Rate 20 08/14/16 07:40 Blood Pressure 121/86 08/14/16 10:25 O2 Sat by Pulse Oximetry (%) 99 08/14/16 10:25 Constitutional: Yes: No Distress, Calm Cardiovascular: Yes: Pulse Irregular, S1, S2 Respiratory: Yes: Regular, Poor Air Entry Gastrointestinal: Yes: Normal Bowel Sounds, Soft Musculoskeletal: Yes: Other Extremities: Yes: Other (left fot swelling and pain no open wound noted + Multiple track pearson to the upper extremities.) Neurological: Yes: Alert, Oriented Psychiatric: Yes: Alert Labs: CBC, BMP 08/14/16 07:10 08/14/16 09:35 Imaging - Results Chest X-ray: Report Reviewed, Image Reviewed X-ray: Report Reviewed, Image Reviewed Assessment/Plan patient received a dose of zosyn and vanco - Problems (1) Cellulitis Code(s): L03.90 - CELLULITIS, UNSPECIFIED Qualifiers: Site of cellulitis: extremity Site of cellulitis of extremity: lower extremity Laterality: left Qualified Code(s): L03.116 - Cellulitis of left lower limb (2) Injury, foot Code(s): S99.929A - UNSPECIFIED INJURY OF UNSPECIFIED FOOT, INITIAL ENCOUNTER Qualifiers: Encounter type: initial encounter Laterality: left Qualified Code(s ): S99.922A - Unspecified injury of left foot, initial encounter (3) Rapid atrial fibrillation Code(s): I48.91 - UNSPECIFIED ATRIAL FIBRILLATION (4) COPD (chronic obstructive pulmonary disease) with emphysema Code(s): J43.9 - EMPHYSEMA, UNSPECIFIED (5) A-fib Code(s): I48.91 - UNSPECIFIED ATRIAL FIBRILLATION Qualifiers: Atrial fibrillation type: chronic Qualified Code(s): I48.2 - Chronic atrial fibrillation plan will continue zosyn await for all cx reports might add clinda tomorrow continue to monitor swelling rest as per primary
[2016-08-14] MEDS: PIPERACILLIN/TAZOB 3.375 GM 50 ML IVPB SCH (17:59)
[2016-08-14] MEDS ORDERED: VANCOMYCIN 1 GRAM (PRE-DOCKED) 250 ML IVPB ONE (18:30)
--- NOTE | 2016-08-14 18:55 | PN ---
Progress Note, Physician - Current Medication List Current Medications: Active Medications Acetaminophen (Tylenol -) 650 mg PO Q6H PRN PRN Reason: FEVER OR PAIN Aclidinium [place] (Tudorza -) 1 puff IH BID [facility] Last Admin: 08/14/16 11:55 Dose: 1 puff Clonazepam (Klonopin -) 1 mg PO BID [facility] Digoxin (Lanoxin -) 0.125 mg PO DAILY [facility] Last Admin: 08/14/16 10:30 Dose: 0.125 mg Gabapentin (Neurontin -) 300 mg PO TID [facility] Piperacillin Sod/Tazobactam Sod (Zosyn 3.375gm Ivpb (Pre-Docked)) 50 mls @ 100 mls/hr IVPB Q8H-IV [facility] PRN Reason: Protocol Last Admin: 08/14/16 17:59 Dose: 100 mls/hr Vancomycin HCl (Vancomycin (Pre-Docked)) 250 mls @ 250 mls/hr IVPB ONCE ONE PRN Reason: Protocol Stop: 08/14/16 19:29 Last Admin: 08/14/16 18:44 Dose: 250 mls/hr Levetiracetam (Keppra -) 500 mg PO BID [facility] Last Admin: 08/14/16 10:30 Dose: 500 mg Methadone HCl (Dolophine -) 65 mg PO DAILY [facility] Last Admin: 08/14/16 10:30 Dose: 65 mg Non-Formulary Medication (Fluticasone/Salmeterol [Advair 250-50 Diskus]) 1 puff IN BID [facility] Quetiapine Fumarate (Seroquel -) 25 mg PO DAILY PRN PRN Reason: ANXIETY Rivaroxaban (Xarelto -) 20 mg PO DAILY [facility] Last Admin: 08/14/16 10:30 Dose: 20 mg Fluticasone/Salmeterol (Advair 100mcg/50mcg -) 1 puff IH BID [facility] Last Admin: 08/14/16 11:55 Dose: 1 puff - Objective Vital Signs: Vital Signs Temperature 98.6 F 08/14/16 17:17 Pulse Rate 99 H 08/14/16 17:17 Respiratory Rate 20 08/14/16 17:32 Blood Pressure 109/65 08/14/16 17:17 O2 Sat by Pulse Oximetry (%) 95 08/14/16 17:32 Constitutional: Yes: No Distress HENT: Yes: Atraumatic Neck: Yes: Supple Cardiovascular: Yes: Regular Rate and Rhythm Respiratory: Yes: CTA Bilaterally Gastrointestinal: Yes: Normal Bowel Sounds Extremities: Yes: WNL Neurological: Yes: Alert, Oriented Labs: CBC, BMP 08/14/16 07:10 08/14/16 09:35 Problem List - Problems (1) Cellulitis Assessment/Plan: IV ABX CXS ID CONSULT Code(s): L03.90 - CELLULITIS, UNSPECIFIED Qualifiers: Site of cellulitis: extremity Site of cellulitis of extremity: lower extremity Laterality: left Qualified Code(s): L03.116 - Cellulitis of left lower limb (2) Injury, foot Code(s): S99.929A - UNSPECIFIED INJURY OF UNSPECIFIED FOOT, INITIAL ENCOUNTER Qualifiers: Encounter type: initial encounter Laterality: left Qualified Code(s ): S99.922A - Unspecified injury of left foot, initial encounter (3) Rapid atrial fibrillation Assessment/Plan: ON XERALTO BB Code(s): I48.91 - UNSPECIFIED ATRIAL FIBRILLATION (4) COPD (chronic obstructive pulmonary disease) with emphysema Code(s): J43.9 - EMPHYSEMA, UNSPECIFIED (5) A-fib Code(s): I48.91 - UNSPECIFIED ATRIAL FIBRILLATION Qualifiers: Atrial fibrillation type: chronic Qualified Code(s): I48.2 - Chronic atrial fibrillation
[2016-08-14] MEDS: BUDESONIDE/FORMETEROL FUMARATE 80/4.5 mcg INHALER IH SCH (21:15)
[2016-08-14] MEDS: clonazePAM 0.5 MG TABLET PO SCH (21:15)
[2016-08-14] MEDS: GABAPENTIN 300 MG CAPSULE (FP) PO SCH (21:15)
[2016-08-14] MEDS: dilTIAZem HCL 30 MG TABLET (FP) PO SCH ×2 (21:53→23:07)
[2016-08-14] MEDS: QUEtiapine FUMARATE 25 MG TABLET (FP) PO PRN (21:53)
[2016-08-14] MEDS: ACETAMINOPHEN 325 MG TABLET (FP) PO PRN (21:53)
[2016-08-15] MEDS: PIPERACILLIN/TAZOB 3.375 GM 50 ML IVPB SCH ×3 (02:36→22:13)
[2016-08-15] MEDS: METHADONE HCL 10 MG TABLET PO SCH (06:05)
[2016-08-15] MEDS: GABAPENTIN 300 MG CAPSULE (FP) PO SCH ×3 (06:06→22:18)
[2016-08-15] MEDS: METHADONE 40 MG, METHADONE 20 MG, METHADONE 5 MG PO SCH (06:16)
[2016-08-15] MEDS ORDERED: PT OWN MED DRAWER 7, Y5N ONE (09:04)
[2016-08-15] MEDS: dilTIAZem HCL 30 MG TABLET (FP) PO SCH ×4 (09:08→22:17)
[2016-08-15] MEDS: levETIRAcetam 500 MG TABLET (FP) PO SCH ×2 (09:09→22:17)
[2016-08-15] MEDS: clonazePAM 0.5 MG TABLET PO SCH ×2 (09:09→22:17)
[2016-08-15] MEDS: DIGOXIN 0.125 MG TABLET (FP) PO SCH (09:10)
[2016-08-15] MEDS: RIVAROXABAN 20 MG TABLET PO SCH (09:10)
[2016-08-15] MEDS: ACLIDINIUM BROMIDE 400 MCG/INH AERO.POWD IH SCH ×2 (09:11→22:18)
[2016-08-15] MEDS: FLUTICASONE/SALMETEROL 100 MCG/50 MCG DISKUS IH SCH ×2 (09:11→22:18)
[2016-08-15] MEDS: BUDESONIDE/FORMETEROL FUMARATE 80/4.5 mcg INHALER IH SCH ×2 (09:12→22:18)
[2016-08-15 09:35] LABS: CALCIUM 8.7 mg/dL (8.5-10.1); COCKROFT - GAULT 70.8815; CREATININE 1.1 mg/dL (0.55-1.02); MAGNESIUM 2.4 mg/dL (1.8-2.4)
[2016-08-15] MEDS: FUROSEMIDE 40 MG TABLET (FP) PO SCH (10:28)
--- NOTE | 2016-08-15 11:29 | PN ---
Progress Note (short form) - Note Progress Note: s: no cp sob palps dizzy o: Vital Signs Period Temp Pulse Resp BP Sys/Smyth Pulse Ox Last 24 Hr 97.4 F-98.7 F 84-122 20-20 101-123/53-70 95-95 nad, no jvd irreg, tachy, s1s2 no mrg cta bl nl eff aaox3 no le e/c/c abd nt nd pos bs no jaundice diaphoresis Current Medications Generic Name Dose Route Start Last Admin Trade Name Freq PRN Reason Stop Dose Admin Acetaminophen 650 mg 08/13/16 21:31 08/14/16 21:53 Tylenol - PO 650 mg Q6H PRN Administration FEVER OR PAIN Aclidinium [place] 1 puff 08/14/16 10:45 08/15/16 09:11 Tudorza - IH 1 puff BID [facility] Administration Budesonide/Formoterol Fumarate 2 puff 08/14/16 22:00 08/15/16 09:12 Symbicort 80/4.5mcg - IH 2 puff BID [facility] Administration Clonazepam 1 mg 08/14/16 22:00 08/15/16 09:09 Klonopin - PO 1 mg BID [facility] Administration Digoxin 0.125 mg 08/14/16 10:00 08/15/16 09:10 Lanoxin - PO 0.125 mg DAILY [facility] Administration Diltiazem HCl 30 mg 08/14/16 19:45 08/15/16 09:08 Cardizem - PO 30 mg QID [facility] Administration Furosemide 40 mg 08/15/16 10:00 08/15/16 10:28 Lasix - PO 40 mg DAILY [facility] Administration Gabapentin 300 mg 08/14/16 22:00 08/15/16 06:06 Neurontin - PO 300 mg TID [facility] Administration Piperacillin Sod/Tazobactam Sod 50 mls @ 100 mls/hr 08/14/16 18:00 08/15/16 09: 12 Zosyn 3.375gm Ivpb (Pre-Docked) IVPB 100 mls/hr Q8H-IV [facility] Administration Protocol Levetiracetam 500 mg 08/13/16 22:00 08/15/16 09:09 Keppra - PO 500 mg BID [facility] Administration Methadone HCl 40 mg/ Methadone 65 mg 08/15/16 06:15 08/15/16 06:16 HCl 20 mg/ Methadone HCl 5 mg PO Not Given DAILY@0600 [facility] Quetiapine Fumarate 25 mg 08/13/16 21:29 08/14/16 21:53 Seroquel - PO 25 mg DAILY PRN Administration ANXIETY Rivaroxaban 20 mg 08/14/16 10:00 08/15/16 09:10 Xarelto - PO 20 mg DAILY [facility] Administration Fluticasone/Salmeterol 1 puff 08/14/16 10:15 08/15/16 09:11 Advair 100mcg/50mcg - IH 1 puff BID [facility] Administration CBC, BMP 08/14/16 07:10 08/15/16 09:00 mibi 2012: no ischemia Echo 07/2016: nl lv/rv. 1+ lae, 1+ mr/tr Echo 12/2015: nl LVSF; nl RV; mild MR/TR; RVSP 30-40 CXR here with increased interstitial markings c/w chronic lung disease, but can' t exclude mild congestion. similar to priors. ekg: afib 125 bpm. lat STD/TWI tele: afib rate 100s now, rvr at times a/p: 66 yo smoker on methadone maintenance who presents with hx pafib, hx pe on xarelto, copd, htn, anxiety, , lung cancer resected August 2012 at [facility], no h/o of RT or chemo, adenoma, RA, Hep C, thyroid nodules, buergers disaese who p/w left foot pain atrial fibrillation -pt does not seem to feel her afib as she denies any palpitations here or at home on DOA -here with rvr initially. on dilt, dig, inderal as outpatient. currently with low bp's. Would resume dig and dilt at low dose. uptitrate as bp tolerates. -CHADS VASC 2--has been maintained on AC (xarelto at home), with h/o PE noted. -she has had recent frequent seizures and falls with acute and old rib fractures on admission xrays, reports recent ankle injury from fall. -the ? of AC is not just an AF question. with CHADS-VASC of 2 and no prior known cva (and none seen on CT head currently, and 2016 MRI brain), it is reasonable to consider stopping AC at least until her outpt neuro w/u (sees roland) is completed and can observe if her sz's and falls can be adequately controlled. risk of cardioembolic CVA is approx 2%/year and it seems that over the next few months her risk of falling and injuring herself is higher than this. HOWEVER it is unknown whether prior PE was provoked or unprovoked, and whether she had hypercoagulable workup done. pt also reports to dr mclain on past admit that she had recent LLE DVT few mo ago (changed coumadin to xarelto then, ? compliance issue with coumadin f/u and INRs). Therefore, risks of life-threatening PE could potentially be prohibitive here, depending on that info--hence need to defer decision about stopping AC to pt's PMD who knows her from before, and if her VTE risk has not previously been well defined, it would need to be done as outpatient. Therefore, on recent past admit continued AC with close follow up with pmd d/w'd dr mclain and her resident the above consideration, and need for appropriate pt counselling and outpt transfer of this important care consideration. diastolic CHF -currently appears euvolemic would cont same outpatient lasix dosing. lasix 40 mg/day. Lt foot pain, infection: - managment per pmd, ID sob, copd, - chronic sob at baseline, stable. per pmd + tob/copd - smoking cessation counseling h/o PE: -? details of prior event -on xarelto. See discussion above. HTN: -stable h/o heroin abuse: -on methadone maintenance
--- NOTE | 2016-08-15 14:03 | PN ---
Progress Note, Physician History of Present Illness: no complaints - Current Medication List Current Medications: Active Medications Acetaminophen (Tylenol -) 650 mg PO Q6H PRN PRN Reason: FEVER OR PAIN Last Admin: 08/14/16 21:53 Dose: 650 mg Aclidinium [place] (Tudorza -) 1 puff IH BID [facility] Last Admin: 08/15/16 09:11 Dose: 1 puff Budesonide/Formoterol Fumarate (Symbicort 80/4.5mcg -) 2 puff IH BID [facility] Last Admin: 08/15/16 09:12 Dose: 2 puff Clonazepam (Klonopin -) 1 mg PO BID [facility] Last Admin: 08/15/16 09:09 Dose: 1 mg Digoxin (Lanoxin -) 0.125 mg PO DAILY [facility] Last Admin: 08/15/16 09:10 Dose: 0.125 mg Diltiazem HCl (Cardizem -) 30 mg PO QID [facility] Last Admin: 08/15/16 09:08 Dose: 30 mg Furosemide (Lasix -) 40 mg PO DAILY [facility] Last Admin: 08/15/16 10:28 Dose: 40 mg Gabapentin (Neurontin -) 300 mg PO TID [facility] Last Admin: 08/15/16 06:06 Dose: 300 mg Piperacillin Sod/Tazobactam Sod (Zosyn 3.375gm Ivpb (Pre-Docked)) 50 mls @ 100 mls/hr IVPB Q8H-IV [facility] PRN Reason: Protocol Last Admin: 08/15/16 09:12 Dose: 100 mls/hr Levetiracetam (Keppra -) 500 mg PO BID [facility] Last Admin: 08/15/16 09:09 Dose: 500 mg Methadone HCl 40 mg/ Methadone (HCl 20 mg/ Methadone HCl 5 mg) 65 mg PO DAILY@ 0600 [facility] Last Admin: 08/15/16 06:16 Dose: Not Given Quetiapine Fumarate (Seroquel -) 25 mg PO DAILY PRN PRN Reason: ANXIETY Last Admin: 08/14/16 21:53 Dose: 25 mg Rivaroxaban (Xarelto -) 20 mg PO DAILY [facility] Last Admin: 08/15/16 09:10 Dose: 20 mg Fluticasone/Salmeterol (Advair 100mcg/50mcg -) 1 puff IH BID [facility] Last Admin: 08/15/16 09:11 Dose: 1 puff - Objective Vital Signs: Vital Signs Temperature 98.7 F 08/15/16 06:00 Pulse Rate 122 H 08/15/16 09:10 Respiratory Rate 20 08/15/16 06:00 Blood Pressure 117/70 08/15/16 07:57 O2 Sat by Pulse Oximetry (%) 98 08/15/16 09:00 Constitutional: Yes: No Distress HENT: Yes: Atraumatic Neck: Yes: Supple Cardiovascular: Yes: Regular Rate and Rhythm Respiratory: Yes: CTA Bilaterally Gastrointestinal: Yes: Normal Bowel Sounds Extremities: Yes: Other (left 5 th finger healing) Edema: RLE: Trace Peripheral Pulses WNL: Yes Neurological: Yes: Alert, Oriented Labs: CBC, BMP 08/14/16 07:10 08/15/16 09:00 Problem List - Problems (1) Cellulitis Assessment/Plan: IV ABX CXS ID CONSULT will order venous doppler to r/o dvt Code(s): L03.90 - CELLULITIS, UNSPECIFIED Qualifiers: Site of cellulitis: extremity Site of cellulitis of extremity: lower extremity Laterality: left Qualified Code(s): L03.116 - Cellulitis of left lower limb (2) Injury, foot Code(s): S99.929A - UNSPECIFIED INJURY OF UNSPECIFIED FOOT, INITIAL ENCOUNTER Qualifiers: Encounter type: initial encounter Laterality: left Qualified Code(s ): S99.922A - Unspecified injury of left foot, initial encounter (3) Rapid atrial fibrillation Code(s): I48.91 - UNSPECIFIED ATRIAL FIBRILLATION (4) COPD (chronic obstructive pulmonary disease) with emphysema Code(s): J43.9 - EMPHYSEMA, UNSPECIFIED (5) A-fib Code(s): I48.91 - UNSPECIFIED ATRIAL FIBRILLATION Qualifiers: Atrial fibrillation type: chronic Qualified Code(s): I48.2 - Chronic atrial fibrillation Assessment/Plan
--- NOTE | 2016-08-15 16:21 | PN ---
Progress Note, Physician History of Present Illness: patient stable says leg pain better - Current Medication List Current Medications: Active Medications Acetaminophen (Tylenol -) 650 mg PO Q6H PRN PRN Reason: FEVER OR PAIN Last Admin: 08/14/16 21:53 Dose: 650 mg Aclidinium [place] ([place]udorza -) 1 puff IH BID [facility] Last Admin: 08/15/16 09:11 Dose: 1 puff Budesonide/Formoterol Fumarate (Symbicort 80/4.5mcg -) 2 puff IH BID [facility] Last Admin: 08/15/16 09:12 Dose: 2 puff Clonazepam (Klonopin -) 1 mg PO BID [facility] Last Admin: 08/15/16 09:09 Dose: 1 mg Digoxin (Lanoxin -) 0.125 mg PO DAILY [facility] Last Admin: 08/15/16 09:10 Dose: 0.125 mg Diltiazem HCl (Cardizem -) 30 mg PO QID [facility] Last Admin: 08/15/16 14:29 Dose: 30 mg Furosemide (Lasix -) 40 mg PO DAILY [facility] Last Admin: 08/15/16 10:28 Dose: 40 mg Gabapentin (Neurontin -) 300 mg PO TID [facility] Last Admin: 08/15/16 14:29 Dose: 300 mg Piperacillin Sod/Tazobactam Sod (Zosyn 3.375gm Ivpb (Pre-Docked)) 50 mls @ 100 mls/hr IVPB Q8H-IV [facility] PRN Reason: Protocol Last Admin: 08/15/16 09:12 Dose: 100 mls/hr Levetiracetam (Keppra -) 500 mg PO BID [facility] Last Admin: 08/15/16 09:09 Dose: 500 mg Methadone HCl 40 mg/ Methadone (HCl 20 mg/ Methadone HCl 5 mg) 65 mg PO DAILY@ 0600 [facility] Last Admin: 08/15/16 06:16 Dose: Not Given Quetiapine Fumarate (Seroquel -) 25 mg PO DAILY PRN PRN Reason: ANXIETY Last Admin: 08/14/16 21:53 Dose: 25 mg Rivaroxaban (Xarelto -) 20 mg PO DAILY [facility] Last Admin: 08/15/16 09:10 Dose: 20 mg Fluticasone/Salmeterol (Advair 100mcg/50mcg -) 1 puff IH BID [facility] Last Admin: 08/15/16 09:11 Dose: 1 puff - Objective Vital Signs: Vital Signs Temperature 98.8 F 08/15/16 14:10 Pulse Rate 98 H 08/15/16 14:10 Respiratory Rate 20 08/15/16 14:10 Blood Pressure 123/55 08/15/16 14:10 O2 Sat by Pulse Oximetry (%) 98 08/15/16 09:00 Constitutional: Yes: No Distress, Calm Cardiovascular: Yes: Pulse Irregular Respiratory: Yes: Regular, Poor Air Entry Gastrointestinal: Yes: Normal Bowel Sounds, Soft Musculoskeletal: Yes: WNL Extremities: Yes: Other Neurological: Yes: Alert, Oriented Psychiatric: Yes: Alert, Oriented Labs: CBC, BMP 08/14/16 07:10 08/15/16 09:00 Assessment/Plan - Problems (1) Cellulitis Code(s): L03.90 - CELLULITIS, UNSPECIFIED Qualifiers: Site of cellulitis: extremity Site of cellulitis of extremity: lower extremity Laterality: left Qualified Code(s): L03.116 - Cellulitis of left lower limb (2) Injury, foot Code(s): S99.929A - UNSPECIFIED INJURY OF UNSPECIFIED FOOT, INITIAL ENCOUNTER Qualifiers: Encounter type: initial encounter Laterality: left Qualified Code(s ): S99.922A - Unspecified injury of left foot, initial encounter (3) Rapid atrial fibrillation Code(s): I48.91 - UNSPECIFIED ATRIAL FIBRILLATION (4) COPD (chronic obstructive pulmonary disease) with emphysema Code(s): J43.9 - EMPHYSEMA, UNSPECIFIED (5) A-fib Code(s): I48.91 - UNSPECIFIED ATRIAL FIBRILLATION Qualifiers: Atrial fibrillation type: chronic Qualified Code(s): I48.2 - Chronic atrial fibrillation plan continue zosyn add clinda rest as per primary patient improving
[2016-08-15] MEDS: CLINDAMYCIN HCL 150 MG CAPSULE (FP) PO SCH (18:55)
[2016-08-15] MEDS: QUEtiapine FUMARATE 25 MG TABLET (FP) PO PRN (22:18)
[2016-08-16] MEDS: CLINDAMYCIN HCL 150 MG CAPSULE (FP) PO SCH ×5 (00:16→23:15)
[2016-08-16] MEDS: PIPERACILLIN/TAZOB 3.375 GM 50 ML IVPB SCH ×3 (02:27→17:56)
[2016-08-16] MEDS ORDERED: METHADONE HCL 10 MG TABLET ONE (06:26)
[2016-08-16] MEDS ORDERED: METHADONE HCL 40 MG DISPERSABLE TABLET ONE (06:27)
[2016-08-16] MEDS ORDERED: METHADONE HCL 5 MG TABLET ONE (06:27)
[2016-08-16] MEDS: METHADONE 40 MG, METHADONE 20 MG, METHADONE 5 MG PO SCH (06:43)
[2016-08-16] MEDS: GABAPENTIN 300 MG CAPSULE (FP) PO SCH ×3 (06:43→23:15)
[2016-08-16 08:15] LABS: MCH 31.6 pg (25.7-33.7); MCHC 33.2 g/dl (32.0-36.0); MEAN CELL VOLUME 95.2 fl (80-96); PLATELET COUNT 162 K/MM3 (134-434); WHITE BLOOD COUNT 10.2 K/mm3 (4.0-10.0)
[2016-08-16] MEDS: dilTIAZem HCL 30 MG TABLET (FP) PO SCH ×4 (08:59→23:15)
[2016-08-16] MEDS: FUROSEMIDE 40 MG TABLET (FP) PO SCH (08:59)
[2016-08-16] MEDS: RIVAROXABAN 20 MG TABLET PO SCH (08:59)
[2016-08-16] MEDS: levETIRAcetam 500 MG TABLET (FP) PO SCH ×2 (08:59→23:15)
[2016-08-16] MEDS: DIGOXIN 0.125 MG TABLET (FP) PO SCH (09:00)
[2016-08-16] MEDS: FLUTICASONE/SALMETEROL 100 MCG/50 MCG DISKUS IH SCH ×2 (09:06→23:20)
[2016-08-16] MEDS: BUDESONIDE/FORMETEROL FUMARATE 80/4.5 mcg INHALER IH SCH ×2 (09:06→23:14)
[2016-08-16] MEDS: clonazePAM 0.5 MG TABLET PO SCH ×2 (09:08→23:15)
[2016-08-16 09:24] LABS: CALCIUM 8.5 mg/dL (8.5-10.1); COCKROFT - GAULT 76.925
[2016-08-16] MEDS: ACLIDINIUM BROMIDE 400 MCG/INH AERO.POWD IH SCH ×2 (10:20→23:14)
--- NOTE | 2016-08-16 11:54 | PN ---
Progress Note (short form) - Note Progress Note: s: no cp sob palps dizzy o: Vital Signs Period Temp Pulse Resp BP Sys/Smyth Pulse Ox Last 24 Hr 97.8 F-98.8 F 83-121 18-20 105-133/55-74 94 nad, no jvd irreg, tachy, s1s2 no mrg cta bl nl eff aaox3 no le e/c/c abd nt nd pos bs no jaundice diaphoresis Current Medications Generic Name Dose Route Start Last Admin Trade Name Freq PRN Reason Stop Dose Admin Acetaminophen 650 mg 08/13/16 21:31 08/14/16 21:53 Tylenol - PO 650 mg Q6H PRN Administration FEVER OR PAIN Aclidinium [place] 1 puff 08/14/16 10:45 08/15/16 22:18 Tudorza - IH 1 puff BID LORRIE Administration Budesonide/Formoterol Fumarate 2 puff 08/14/16 22:00 08/16/16 09:06 Symbicort 80/4.5mcg - IH 2 puff BID [facility]E Administration Clindamycin HCl 300 mg 08/15/16 18:00 08/16/16 06:43 Cleocin - PO 300 mg Q6HPO [facility] Administration Clonazepam 1 mg 08/14/16 22:00 08/16/16 09:08 Klonopin - PO 1 mg BID [facility] Administration Digoxin 0.125 mg 08/14/16 10:00 08/16/16 09:00 Lanoxin - PO 0.125 mg DAILY L[facility]E Administration Diltiazem HCl 30 mg 08/14/16 19:45 08/16/16 08:59 Cardizem - PO 08/16/16 23:00 30 mg QID [facility]E Administration Diltiazem HCl 120 mg 08/17/16 10:00 Cardizem Cd - PO DAILY [facility] Furosemide 40 mg 08/15/16 10:00 08/16/16 08:59 Lasix - PO 40 mg DAILY [facility] Administration Gabapentin 300 mg 08/14/16 22:00 08/16/16 06:43 Neurontin - PO 300 mg TID [facility]E Administration Piperacillin Sod/Tazobactam Sod 50 mls @ 100 mls/hr 08/14/16 18:00 08/16/16 02: 27 Zosyn 3.375gm Ivpb (Pre-Docked) IVPB 100 mls/hr Q8H-IV LORREI Administration Protocol Levetiracetam 500 mg 08/13/16 22:00 08/16/16 08:59 Keppra - PO 500 mg BID [facility] Administration Methadone HCl 40 mg/ Methadone 65 mg 08/15/16 06:15 08/16/16 06:43 HCl 20 mg/ Methadone HCl 5 mg PO 65 mg DAILY@0600 [facility] Administration Propranolol HCl 60 mg 08/16/16 12:00 Inderal La - PO DAILY [facility] Quetiapine Fumarate 25 mg 08/13/16 21:29 08/15/16 22:18 Seroquel - PO 25 mg DAILY PRN Administration ANXIETY Rivaroxaban 20 mg 08/14/16 10:00 08/16/16 08:59 Xarelto - PO 20 mg DAILY [facility] Administration Fluticasone/Salmeterol 1 puff 08/14/16 10:15 08/16/16 09:06 Advair 100mcg/50mcg - IH 1 puff BID [facility] Administration 08/16/16 05:48 08/16/16 05:48 mibi 2012: no ischemia Echo 07/2016: nl lv/rv. 1+ lae, 1+ mr/tr Echo 12/2015: nl LVSF; nl RV; mild MR/TR; RVSP 30-40 CXR here with increased interstitial markings c/w chronic lung disease, but can' t exclude mild congestion. similar to priors. ekg: afib 125 bpm. lat STD/TWI tele: afib rate low 100s now, rvr at times a/p: 66 yo smoker on methadone maintenance who presents with hx pafib, hx pe on xarelto, copd, htn, anxiety, , lung cancer resected August 2012 at [facility], no h/o of RT or chemo, adenoma, RA, Hep C, thyroid nodules, buergers disaese who p/w left foot pain atrial fibrillation -pt does not seem to feel her afib as she denies any palpitations here or at home -here with rvr initially. on dilt, dig, inderal as outpatient. initially with low bp's so held inderal but still having rvr at times so will cont dilt and dig but also resume inderal at 60 mg qd. Monitor on tele. -CHADS VASC 2--has been maintained on AC (xarelto at home), with h/o PE noted. -she has had recent frequent seizures and falls with acute and old rib fractures on admission xrays, reports recent ankle injury from fall. -the ? of AC is not just an AF question. with CHADS-VASC of 2 and no prior known cva (and none seen on CT head currently, and 2016 MRI brain), it is reasonable to consider stopping AC at least until her outpt neuro w/u (sees roland) is completed and can observe if her sz's and falls can be adequately controlled. risk of cardioembolic CVA is approx 2%/year and it seems that over the next few months her risk of falling and injuring herself is higher than this. HOWEVER it is unknown whether prior PE was provoked or unprovoked, and whether she had hypercoagulable workup done. pt also reports to dr mclain on past admit that she had recent LLE DVT few mo ago (changed coumadin to xarelto then, ? compliance issue with coumadin f/u and INRs). Therefore, risks of life-threatening PE could potentially be prohibitive here, depending on that info--hence need to defer decision about stopping AC to pt's PMD who knows her from before, and if her VTE risk has not previously been well defined, it would need to be done as outpatient. Therefore, on recent past admit continued AC with close follow up with pmd d/w'd dr mclain and her resident the above consideration, and need for appropriate pt counselling and outpt transfer of this important care consideration. diastolic CHF -currently appears euvolemic would cont same outpatient lasix dosing. lasix 40 mg/day. Lt foot pain, infection: - managment per pmd, ID sob, copd, - chronic sob at baseline, stable. per pmd + tob/copd - smoking cessation counseling h/o PE: -? details of prior event -on xarelto. See discussion above. HTN: -stable h/o heroin abuse: -on methadone maintenance
--- NOTE | 2016-08-16 14:58 | PN ---
Progress Note, Physician History of Present Illness: stable no new issues - Current Medication List Current Medications: Active Medications Acetaminophen (Tylenol -) 650 mg PO Q6H PRN PRN Reason: FEVER OR PAIN Last Admin: 08/14/16 21:53 Dose: 650 mg Aclidinium [place] (Tudorza -) 1 puff IH BID [facility] Last Admin: 08/15/16 22:18 Dose: 1 puff Budesonide/Formoterol Fumarate (Symbicort 80/4.5mcg -) 2 puff IH BID [facility] Last Admin: 08/16/16 09:06 Dose: 2 puff Clindamycin HCl (Cleocin -) 300 mg PO Q6HPO [facility] Last Admin: 08/16/16 06:43 Dose: 300 mg Clonazepam (Klonopin -) 1 mg PO BID [facility] Last Admin: 08/16/16 09:08 Dose: 1 mg Digoxin (Lanoxin -) 0.125 mg PO DAILY [facility] Last Admin: 08/16/16 09:00 Dose: 0.125 mg Diltiazem HCl (Cardizem -) 30 mg PO QID [facility] Stop: 08/16/16 23:00 Last Admin: 08/16/16 08:59 Dose: 30 mg Diltiazem HCl (Cardizem Cd -) 120 mg PO DAILY [facility] Furosemide (Lasix -) 40 mg PO DAILY [facility] Last Admin: 08/16/16 08:59 Dose: 40 mg Gabapentin (Neurontin -) 300 mg PO TID [facility] Last Admin: 08/16/16 06:43 Dose: 300 mg Piperacillin Sod/Tazobactam Sod (Zosyn 3.375gm Ivpb (Pre-Docked)) 50 mls @ 100 mls/hr IVPB Q8H-IV LORRIE PRN Reason: Protocol Last Admin: 08/16/16 02:27 Dose: 100 mls/hr Levetiracetam (Keppra -) 500 mg PO BID [facility] Last Admin: 08/16/16 08:59 Dose: 500 mg Methadone HCl 40 mg/ Methadone (HCl 20 mg/ Methadone HCl 5 mg) 65 mg PO DAILY@ 0600 [facility] Last Admin: 08/16/16 06:43 Dose: 65 mg Propranolol HCl (Inderal La -) 60 mg PO DAILY [facility] Quetiapine Fumarate (Seroquel -) 25 mg PO DAILY PRN PRN Reason: ANXIETY Last Admin: 08/15/16 22:18 Dose: 25 mg Rivaroxaban (Xarelto -) 20 mg PO DAILY [facility] Last Admin: 08/16/16 08:59 Dose: 20 mg Fluticasone/Salmeterol (Advair 100mcg/50mcg -) 1 puff IH BID [facility] Last Admin: 08/16/16 09:06 Dose: 1 puff - Objective Vital Signs: Vital Signs Temperature 98 F 08/16/16 14:10 Pulse Rate 109 H 08/16/16 14:10 Respiratory Rate 18 08/16/16 14:10 Blood Pressure 124/76 08/16/16 14:10 O2 Sat by Pulse Oximetry (%) 94 L 08/16/16 09:00 Constitutional: Yes: No Distress, Calm Cardiovascular: Yes: Regular Rate and Rhythm Respiratory: Yes: Regular, CTA Bilaterally Gastrointestinal: Yes: Normal Bowel Sounds, Soft Musculoskeletal: Yes: Other Extremities: Yes: Other Wound/Incision: Yes: Other Neurological: Yes: Alert, Oriented Labs: CBC, BMP 08/16/16 05:48 08/16/16 05:48 Assessment/Plan - Problems (1) Cellulitis Code(s): L03.90 - CELLULITIS, UNSPECIFIED Qualifiers: Site of cellulitis: extremity Site of cellulitis of extremity: lower extremity Laterality: left Qualified Code(s): L03.116 - Cellulitis of left lower limb (2) Injury, foot Code(s): S99.929A - UNSPECIFIED INJURY OF UNSPECIFIED FOOT, INITIAL ENCOUNTER Qualifiers: Encounter type: initial encounter Laterality: left Qualified Code(s ): S99.922A - Unspecified injury of left foot, initial encounter (3) Rapid atrial fibrillation Code(s): I48.91 - UNSPECIFIED ATRIAL FIBRILLATION (4) COPD (chronic obstructive pulmonary disease) with emphysema Code(s): J43.9 - EMPHYSEMA, UNSPECIFIED (5) A-fib Code(s): I48.91 - UNSPECIFIED ATRIAL FIBRILLATION Qualifiers: Atrial fibrillation type: chronic Qualified Code(s): I48.2 - Chronic atrial fibrillation plan continue zosyn add clinda rest as per primary patient improving will start deescalting in a day or so all cx result noted
[2016-08-16] MEDS ORDERED: PT OWN MED DRAWER 7, Y5N ONE ×3 (15:22→23:13)
--- NOTE | 2016-08-16 16:17 | PN ---
Progress Note, Physician - Current Medication List Current Medications: Active Medications Acetaminophen (Tylenol -) 650 mg PO Q6H PRN PRN Reason: FEVER OR PAIN Last Admin: 08/14/16 21:53 Dose: 650 mg Aclidinium [place] (Tudorza -) 1 puff IH BID [facility] Last Admin: 08/16/16 10:20 Dose: 1 puff Budesonide/Formoterol Fumarate (Symbicort 80/4.5mcg -) 2 puff IH BID [facility] Last Admin: 08/16/16 09:06 Dose: 2 puff Clindamycin HCl (Cleocin -) 300 mg PO Q6HPO [facility] Last Admin: 08/16/16 13:20 Dose: 300 mg Clonazepam (Klonopin -) 1 mg PO BID [facility] Last Admin: 08/16/16 09:08 Dose: 1 mg Digoxin (Lanoxin -) 0.125 mg PO DAILY [facility] Last Admin: 08/16/16 09:00 Dose: 0.125 mg Diltiazem HCl (Cardizem -) 30 mg PO QID [facility] Stop: 08/16/16 23:00 Last Admin: 08/16/16 15:19 Dose: 30 mg Diltiazem HCl (Cardizem Cd -) 120 mg PO DAILY [facility] Furosemide (Lasix -) 40 mg PO DAILY [facility] Last Admin: 08/16/16 08:59 Dose: 40 mg Gabapentin (Neurontin -) 300 mg PO TID [facility] Last Admin: 08/16/16 15:19 Dose: 300 mg Piperacillin Sod/Tazobactam Sod (Zosyn 3.375gm Ivpb (Pre-Docked)) 50 mls @ 100 mls/hr IVPB Q8H-IV LORRIE PRN Reason: Protocol Last Admin: 08/16/16 02:27 Dose: 100 mls/hr Levetiracetam (Keppra -) 500 mg PO BID [facility] Last Admin: 08/16/16 08:59 Dose: 500 mg Methadone HCl 40 mg/ Methadone (HCl 20 mg/ Methadone HCl 5 mg) 65 mg PO DAILY@ 0600 [facility] Last Admin: 08/16/16 06:43 Dose: 65 mg Propranolol HCl (Inderal La -) 60 mg PO DAILY [facility] Quetiapine Fumarate (Seroquel -) 25 mg PO DAILY PRN PRN Reason: ANXIETY Last Admin: 08/15/16 22:18 Dose: 25 mg Rivaroxaban (Xarelto -) 20 mg PO DAILY [facility] Last Admin: 08/16/16 08:59 Dose: 20 mg Fluticasone/Salmeterol (Advair 100mcg/50mcg -) 1 puff IH BID [facility] Last Admin: 08/16/16 09:06 Dose: 1 puff - Objective Vital Signs: Vital Signs Temperature 98 F 08/16/16 14:10 Pulse Rate 109 H 08/16/16 14:10 Respiratory Rate 18 08/16/16 14:10 Blood Pressure 124/76 08/16/16 14:10 O2 Sat by Pulse Oximetry (%) 94 L 08/16/16 09:00 Constitutional: Yes: No Distress HENT: Yes: Atraumatic Neck: Yes: Supple Cardiovascular: Yes: Regular Rate and Rhythm Respiratory: Yes: CTA Bilaterally Gastrointestinal: Yes: Normal Bowel Sounds Extremities: Yes: Other (left foot colder to touch weak pulse) Neurological: Yes: Alert, Oriented Labs: CBC, BMP 08/16/16 05:48 08/16/16 05:48 Problem List - Problems (1) Cellulitis Assessment/Plan: IV ABX CXS ID CONSULT Code(s): L03.90 - CELLULITIS, UNSPECIFIED Qualifiers: Site of cellulitis: extremity Site of cellulitis of extremity: lower extremity Laterality: left Qualified Code(s): L03.116 - Cellulitis of left lower limb (2) Injury, foot Assessment/Plan: left is is some what cold pulses weak will order arterial doppler Code(s): S99.929A - UNSPECIFIED INJURY OF UNSPECIFIED FOOT, INITIAL ENCOUNTER Qualifiers: Encounter type: initial encounter Laterality: left Qualified Code(s ): S99.922A - Unspecified injury of left foot, initial encounter (3) Rapid atrial fibrillation Code(s): I48.91 - UNSPECIFIED ATRIAL FIBRILLATION (4) COPD (chronic obstructive pulmonary disease) with emphysema Code(s): J43.9 - EMPHYSEMA, UNSPECIFIED (5) A-fib Code(s): I48.91 - UNSPECIFIED ATRIAL FIBRILLATION Qualifiers: Atrial fibrillation type: chronic Qualified Code(s): I48.2 - Chronic atrial fibrillation
[2016-08-16] MEDS: QUEtiapine FUMARATE 25 MG TABLET (FP) PO PRN (23:15)
[2016-08-17] MEDS: PIPERACILLIN/TAZOB 3.375 GM 50 ML IVPB SCH ×2 (02:36→09:24)
[2016-08-17] MEDS ORDERED: METHADONE HCL 40 MG DISPERSABLE TABLET ONE (06:51)
[2016-08-17] MEDS ORDERED: METHADONE HCL 10 MG TABLET ONE (06:51)
[2016-08-17] MEDS ORDERED: PT OWN MED DRAWER 7, Y5N ONE ×4 (06:52→16:51)
[2016-08-17] MEDS ORDERED: METHADONE HCL 5 MG TABLET ONE (06:52)
[2016-08-17] MEDS: GABAPENTIN 300 MG CAPSULE (FP) PO SCH ×3 (06:54→21:12)
[2016-08-17] MEDS: CLINDAMYCIN HCL 150 MG CAPSULE (FP) PO SCH ×3 (06:54→17:07)
[2016-08-17] MEDS: METHADONE 40 MG, METHADONE 20 MG, METHADONE 5 MG PO SCH (06:54)
[2016-08-17] MEDS: FLUTICASONE/SALMETEROL 100 MCG/50 MCG DISKUS IH SCH ×2 (09:24→21:11)
[2016-08-17] MEDS: FUROSEMIDE 40 MG TABLET (FP) PO SCH (09:24)
[2016-08-17] MEDS: RIVAROXABAN 20 MG TABLET PO SCH (09:25)
[2016-08-17] MEDS: DIGOXIN 0.125 MG TABLET (FP) PO SCH (09:25)
[2016-08-17] MEDS: levETIRAcetam 500 MG TABLET (FP) PO SCH ×2 (09:25→21:12)
[2016-08-17] MEDS: clonazePAM 0.5 MG TABLET PO SCH ×2 (09:25→21:12)
[2016-08-17] MEDS: BUDESONIDE/FORMETEROL FUMARATE 80/4.5 mcg INHALER IH SCH ×2 (09:31→21:12)
[2016-08-17] MEDS: ACLIDINIUM BROMIDE 400 MCG/INH AERO.POWD IH SCH ×2 (09:31→21:13)
--- NOTE | 2016-08-17 12:06 | PN ---
Progress Note (short form) - Note Progress Note: s: no cp sob palps dizzy o: Vital Signs Period Temp Pulse Resp BP Sys/Smyth Pulse Ox Last 24 Hr 98 F-98.8 F 103-124 18-20 90-124/58-76 95-95 nad, no jvd irreg, tachy, s1s2 no mrg cta bl nl eff aaox3 no le e/c/c abd nt nd pos bs no jaundice diaphoresis Current Medications Generic Name Dose Route Start Last Admin Trade Name Freq PRN Reason Stop Dose Admin Acetaminophen 650 mg 08/13/16 21:31 08/14/16 21:53 Tylenol - PO 650 mg Q6H PRN Administration FEVER OR PAIN Aclidinium [place] 1 puff 08/14/16 10:45 08/17/16 09:31 Tudorza - IH 1 puff BID L[facility]RIE Administration Budesonide/Formoterol Fumarate 2 puff 08/14/16 22:00 08/17/16 09:31 Symbicort 80/4.5mcg - IH 2 puff BID L[facility]RIE Administration Clindamycin HCl 300 mg 08/15/16 18:00 08/17/16 06:54 Cleocin - PO 300 mg Q6HPO [facility] Administration Clonazepam 1 mg 08/14/16 22:00 08/17/16 09:25 Klonopin - PO 1 mg BID [facility]E Administration Digoxin 0.125 mg 08/14/16 10:00 08/17/16 09:25 Lanoxin - PO 0.125 mg DAILY [facility] Administration Diltiazem HCl 120 mg 08/17/16 10:00 08/17/16 09:25 Cardizem Cd - PO 120 mg DAILY [facility] Administration Furosemide 40 mg 08/15/16 10:00 08/17/16 09:24 Lasix - PO 40 mg DAILY [facility] Administration Gabapentin 300 mg 08/14/16 22:00 08/17/16 06:54 Neurontin - PO 300 mg TID [facility]E Administration Piperacillin Sod/Tazobactam Sod 50 mls @ 100 mls/hr 08/14/16 18:00 08/17/16 09: 24 Zosyn 3.375gm Ivpb (Pre-Docked) IVPB 100 mls/hr Q8H-IV [facility]E Administration Protocol Levetiracetam 500 mg 08/13/16 22:00 08/17/16 09:25 Keppra - PO 500 mg BID [facility] Administration Methadone HCl 40 mg/ Methadone 65 mg 08/15/16 06:15 08/17/16 06:54 HCl 20 mg/ Methadone HCl 5 mg PO 65 mg DAILY@0600 [facility] Administration Propranolol HCl 60 mg 08/16/16 12:00 08/17/16 09:26 Inderal La - PO 60 mg DAILY [facility] Administration Quetiapine Fumarate 25 mg 08/13/16 21:29 08/16/16 23:15 Seroquel - PO 25 mg DAILY PRN Administration ANXIETY Rivaroxaban 20 mg 08/14/16 10:00 08/17/16 09:25 Xarelto - PO 20 mg DAILY [facility] Administration Fluticasone/Salmeterol 1 puff 08/14/16 10:15 08/17/16 09:24 Advair 100mcg/50mcg - IH 1 puff BID [facility] Administration CBC, BMP 08/16/16 05:48 08/16/16 05:48 mibi 2012: no ischemia Echo 07/2016: nl lv/rv. 1+ lae, 1+ mr/tr Echo 12/2015: nl LVSF; nl RV; mild MR/TR; RVSP 30-40 CXR here with increased interstitial markings c/w chronic lung disease, but can' t exclude mild congestion. similar to priors. ekg: afib 125 bpm. lat STD/TWI tele: afib rate low 100s now, rvr at times a/p: 66 yo smoker on methadone maintenance who presents with hx pafib, hx pe on xarelto, copd, htn, anxiety, , lung cancer resected August 2012 at [facility], no h/o of RT or chemo, adenoma, RA, Hep C, thyroid nodules, buergers disaese who p/w left foot pain atrial fibrillation -pt does not seem to feel her afib as she denies any palpitations here or at home -here with rvr initially. on dilt, dig, inderal as outpatient. initially with low bp's so held inderal but still having rvr at times so will cont dilt and dig but also resumed inderal at 60 mg qd starting 08/16. Monitor on tele. -CHADS VASC 2--has been maintained on AC (xarelto at home), with h/o PE noted. -she has had recent frequent seizures and falls with acute and old rib fractures on admission xrays, reports recent ankle injury from fall. -the ? of AC is not just an AF question. with CHADS-VASC of 2 and no prior known cva (and none seen on CT head currently, and 2016 MRI brain), it is reasonable to consider stopping AC at least until her outpt neuro w/u (sees nadyalaura) is completed and can observe if her sz's and falls can be adequately controlled. risk of cardioembolic CVA is approx 2%/year and it seems that over the next few months her risk of falling and injuring herself is higher than this. HOWEVER it is unknown whether prior PE was provoked or unprovoked, and whether she had hypercoagulable workup done. pt also reports to dr mclain on past admit that she had recent LLE DVT few mo ago (changed coumadin to xarelto then, ? compliance issue with coumadin f/u and INRs). Therefore, risks of life-threatening PE could potentially be prohibitive here, depending on that info--hence need to defer decision about stopping AC to pt's PMD who knows her from before, and if her VTE risk has not previously been well defined, it would need to be done as outpatient. Therefore, on recent past admit continued AC with close follow up with pmd d/w'd dr mclain and her resident the above consideration, and need for appropriate pt counselling and outpt transfer of this important care consideration. diastolic CHF -currently appears euvolemic would cont same outpatient lasix dosing. lasix 40 mg/day. Lt foot pain, infection: - managment per pmd, ID sob, copd, - chronic sob at baseline, stable. per pmd + tob/copd - smoking cessation counseling h/o PE: -? details of prior event -on xarelto. See discussion above. HTN: -stable h/o heroin abuse: -on methadone maintenance
--- NOTE | 2016-08-17 14:15 | PN ---
Progress Note, Physician History of Present Illness: no complaints no new issues duplex negative - Current Medication List Current Medications: Active Medications Acetaminophen (Tylenol -) 650 mg PO Q6H PRN PRN Reason: FEVER OR PAIN Last Admin: 08/14/16 21:53 Dose: 650 mg Aclidinium [place] (Tudorza -) 1 puff IH BID [facility] Last Admin: 08/17/16 09:31 Dose: 1 puff Budesonide/Formoterol Fumarate (Symbicort 80/4.5mcg -) 2 puff IH BID [facility] Last Admin: 08/17/16 09:31 Dose: 2 puff Clindamycin HCl (Cleocin -) 300 mg PO Q6HPO [facility] Last Admin: 08/17/16 11:42 Dose: 300 mg Clonazepam (Klonopin -) 1 mg PO BID [facility] Last Admin: 08/17/16 09:25 Dose: 1 mg Digoxin (Lanoxin -) 0.125 mg PO DAILY [facility] Last Admin: 08/17/16 09:25 Dose: 0.125 mg Diltiazem HCl (Cardizem Cd -) 120 mg PO DAILY [facility] Last Admin: 08/17/16 09:25 Dose: 120 mg Furosemide (Lasix -) 40 mg PO DAILY [facility] Last Admin: 08/17/16 09:24 Dose: 40 mg Gabapentin (Neurontin -) 300 mg PO TID [facility] Last Admin: 08/17/16 13:41 Dose: 300 mg Levetiracetam (Keppra -) 500 mg PO BID [facility] Last Admin: 08/17/16 09:25 Dose: 500 mg Methadone HCl 40 mg/ Methadone (HCl 20 mg/ Methadone HCl 5 mg) 65 mg PO DAILY@ 0600 [facility] Last Admin: 08/17/16 06:54 Dose: 65 mg Propranolol HCl (Inderal La -) 60 mg PO DAILY [facility] Last Admin: 08/17/16 09:26 Dose: 60 mg Quetiapine Fumarate (Seroquel -) 25 mg PO DAILY PRN PRN Reason: ANXIETY Last Admin: 08/16/16 23:15 Dose: 25 mg Rivaroxaban (Xarelto -) 20 mg PO DAILY [facility] Last Admin: 08/17/16 09:25 Dose: 20 mg Fluticasone/Salmeterol (Advair 100mcg/50mcg -) 1 puff IH BID [facility] Last Admin: 08/17/16 09:24 Dose: 1 puff - Objective Vital Signs: Vital Signs Temperature 98.1 F 08/17/16 07:51 Pulse Rate 113 H 08/17/16 09:25 Respiratory Rate 20 08/17/16 07:51 Blood Pressure 107/69 08/17/16 07:51 O2 Sat by Pulse Oximetry (%) 95 08/17/16 07:51 Constitutional: Yes: No Distress, Calm Cardiovascular: Yes: S1, S2 Gastrointestinal: Yes: Normal Bowel Sounds, Soft Musculoskeletal: Yes: Other Extremities: Yes: Other (leg looks good minimal ertyhema pain minimal) Neurological: Yes: Alert, Oriented Psychiatric: Yes: Alert Labs: CBC, BMP 08/16/16 05:48 08/16/16 05:48 Assessment/Plan - Problems (1) Cellulitis Code(s): L03.90 - CELLULITIS, UNSPECIFIED Qualifiers: Site of cellulitis: extremity Site of cellulitis of extremity: lower extremity Laterality: left Qualified Code(s): L03.116 - Cellulitis of left lower limb (2) Injury, foot Code(s): S99.929A - UNSPECIFIED INJURY OF UNSPECIFIED FOOT, INITIAL ENCOUNTER Qualifiers: Encounter type: initial encounter Laterality: left Qualified Code(s ): S99.922A - Unspecified injury of left foot, initial encounter (3) Rapid atrial fibrillation Code(s): I48.91 - UNSPECIFIED ATRIAL FIBRILLATION (4) COPD (chronic obstructive pulmonary disease) with emphysema Code(s): J43.9 - EMPHYSEMA, UNSPECIFIED (5) A-fib Code(s): I48.91 - UNSPECIFIED ATRIAL FIBRILLATION Qualifiers: Atrial fibrillation type: chronic Qualified Code(s): I48.2 - Chronic atrial fibrillation plan continue clinda will stop zosyn and give augmentin
[2016-08-17] MEDS: AMOX TR/POT CLAV 500MG/125MG TABLETS (FP) PO SCH (17:07)
--- NOTE | 2016-08-17 17:13 | CONSULT ---
Consult - Past Medical History Cardio/Vascular: Yes: AFIB, HTN, Hyperlipdemia Pulmonary: Yes: COPD Gastrointestinal: Yes: Other (HEP C) Hepatobiliary: Yes: Hepatitis C Infectious Disease: Yes: Other (recent hx of admission to the hosp for pneumonia ) Psych: Yes: Addictions (WAS ON 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), Anxiety Musculoskeletal: Yes: Chronic low back pain Endocrine: Yes: Other (benign adrenal nodule s/p bx) - Alcohol/Substance Use Hx Alcohol Use: No History of Substance Use: reports: None - Smoking History Smoking history: Current every day smoker Have you smoked in the past 12 months: Yes Aproximately how many cigarettes per day: 20 If you are a former smoker, when did you quit?: 03-17-13 - Social History Usual Living Arrangement: Alone (considered w/a terminally ill condition which enables her get the single room she is currently in.) History of Recent Travel: No Home Medications - Allergies Allergies/Adverse Reactions: Allergies Allergy/AdvReac Type Severity Reaction Status Date / Time No Known Allergies Allergy Verified 08/13/16 09:40 - Home Medications Home Medications: Ambulatory Orders Methadone [Dolophine -] 65 mg PO DAILY 10/19/14 Tiotropium [place] [Spiriva] 1 inh PO BID 10/19/14 Albuterol Sulfate Inhaler - [Ventolin HFA Inhaler -] 2 inh PO Q4H PRN 12/08/15 Rivaroxaban [Xarelto -] 20 mg PO DAILY 12/10/15 Fluticasone/Salmeterol [Advair 250-50 Diskus] 1 puff IN BID 07/08/16 Gabapentin [Neurontin] 300 mg PO TID 07/08/16 Albuterol 2.5/Ipratropium 0.5 [Duoneb -] 1 amp NEB Q6H PRN #30 amp 07/16/16 Albuterol 2.5/Ipratropium 0.5 [Duoneb -] 1 amp NEB QIDR 30 Days 07/16/16 Digoxin [Lanoxin -] 0.125 mg PO DAILY #30 tablet 07/16/16 Diltiazem [Cardizem -] 90 mg PO QID #120 tablet 07/16/16 Docusate Sodium [Colace -] 100 mg PO TID #100 capsule 07/16/16 Levetiracetam [Keppra -] 500 mg PO BID #60 tab 07/16/16 Levetiracetam [Keppra -] 500 mg PO BID #60 tablet 07/16/16 Lidocaine 5% Patch [Lidoderm -] 1 patch TP DAILY #15 patch 07/16/16 Nicotine Patch [Nicoderm Patch -] 1 patch TD DAILY #7 patch 07/16/16 Prednisone [Deltasone -] 40 mg PO DAILY #30 tablet 07/16/16 Propranolol HCl [Inderal LA -] 120 mg PO DAILY #30 cap 07/16/16 Quetiapine Fumarate [Seroquel -] 25 mg PO DAILY PRN #30 tablet 07/16/16 Quetiapine Fumarate [Seroquel -] 300 mg PO HS #30 tablet 07/16/16 Unobtainable 08/13/16 Clonazepam [Klonopin -] 1 mg PO BID 08/14/16 Family Disease History - Family Disease History Family Disease History: Other: Father (ETOH DEPENDENT), Mother (HAD CVA AND ) Physical Exam Vital Signs: Vital Signs Temperature 98.2 F 08/17/16 14:00 Pulse Rate 82 08/17/16 14:00 Respiratory Rate 20 08/17/16 14:00 Blood Pressure 114/65 08/17/16 14:00 O2 Sat by Pulse Oximetry (%) 95 08/17/16 07:51 Labs: CBC, BMP 08/16/16 05:48 08/16/16 05:48 Assessment/Plan Vascular Surgery This is a 65 yo F with PMH mental illness, COPD, RA, Lung ca with local reoccurance, benign adrenal mass, a-fib, DVT, hypotension, hep. C, thyriod nodules, PVD, HTN, recently admitted for COPD exacerbation, who presents due to L foot pain and sob. Wed patient was stuck my a needle in lateral dorsal aspect of L foot near 5th toe. Shorty after L 5th toe and surrounding area became erythematous, edematous and painful. She developed f/c and malaise. This morning she woke up with increased malaise, perfuse cold sweats, sob, confusion , polyuria and increased toe pain. She denies chest pain, n/v, loc, palpitations , abd pain, diarrhea, constipation, dysuria. She has a chronic cough. She had a tetanus shot less than a year ago. During last admission she had a fib that was converted with metoprolol and she was then placed on digoxin. She is currently on prednisone. She is on methadone but denies lowering dose or using other drugs PE Head - NC/AT Lung - CTA Heart - RRR abd - soft,nt,nd ext - both feet cool to touch. No palpable pulses. A/P Pt is a active smoker. Both feet cool to touch Pt complains of claudication in the thighs when she walks less than 2 blocks. Will order CTA Nilay Paniagua DO
--- NOTE | 2016-08-17 17:39 | PN ---
Progress Note, Physician History of Present Illness: no complaints - Current Medication List Current Medications: Active Medications Acetaminophen (Tylenol -) 650 mg PO Q6H PRN PRN Reason: FEVER OR PAIN Last Admin: 08/14/16 21:53 Dose: 650 mg Aclidinium [place] (Tudorza -) 1 puff IH BID [facility] Last Admin: 08/17/16 09:31 Dose: 1 puff Amoxicillin/Clavulanate Potassium (Augmentin - 500mg Tablet) 1 tab PO BID@0800, 1730 [facility] Last Admin: 08/17/16 17:07 Dose: 1 tab Budesonide/Formoterol Fumarate (Symbicort 80/4.5mcg -) 2 puff IH BID [facility] Last Admin: 08/17/16 09:31 Dose: 2 puff Clindamycin HCl (Cleocin -) 300 mg PO Q6HPO [facility] Last Admin: 08/17/16 17:07 Dose: 300 mg Clonazepam (Klonopin -) 1 mg PO BID [facility] Last Admin: 08/17/16 09:25 Dose: 1 mg Digoxin (Lanoxin -) 0.125 mg PO DAILY [facility] Last Admin: 08/17/16 09:25 Dose: 0.125 mg Diltiazem HCl (Cardizem Cd -) 120 mg PO DAILY [facility] Last Admin: 08/17/16 09:25 Dose: 120 mg Furosemide (Lasix -) 40 mg PO DAILY [facility] Last Admin: 08/17/16 09:24 Dose: 40 mg Gabapentin (Neurontin -) 300 mg PO TID [facility] Last Admin: 08/17/16 13:41 Dose: 300 mg Levetiracetam (Keppra -) 500 mg PO BID [facility] Last Admin: 08/17/16 09:25 Dose: 500 mg Methadone HCl 40 mg/ Methadone (HCl 20 mg/ Methadone HCl 5 mg) 65 mg PO DAILY@ 0600 [facility] Last Admin: 08/17/16 06:54 Dose: 65 mg Propranolol HCl (Inderal La -) 60 mg PO DAILY [facility] Last Admin: 08/17/16 09:26 Dose: 60 mg Quetiapine Fumarate (Seroquel -) 25 mg PO DAILY PRN PRN Reason: ANXIETY Last Admin: 08/16/16 23:15 Dose: 25 mg Rivaroxaban (Xarelto -) 20 mg PO DAILY [facility] Last Admin: 08/17/16 09:25 Dose: 20 mg Fluticasone/Salmeterol (Advair 100mcg/50mcg -) 1 puff IH BID [facility] Last Admin: 08/17/16 09:24 Dose: 1 puff - Objective Vital Signs: Vital Signs Temperature 98.2 F 08/17/16 14:00 Pulse Rate 82 08/17/16 14:00 Respiratory Rate 20 08/17/16 14:00 Blood Pressure 114/65 08/17/16 14:00 O2 Sat by Pulse Oximetry (%) 95 08/17/16 07:51 Constitutional: Yes: No Distress HENT: Yes: Atraumatic Neck: Yes: Supple Cardiovascular: Yes: Regular Rate and Rhythm Respiratory: Yes: CTA Bilaterally Gastrointestinal: Yes: Normal Bowel Sounds Extremities: Yes: WNL Peripheral Pulses: Left Doralis Pedis: 1+ Neurological: Yes: Alert, Oriented Labs: CBC, BMP 08/16/16 05:48 08/16/16 05:48 Problem List - Problems (1) Cellulitis Assessment/Plan: IV ABX CXS ID CONSULT Code(s): L03.90 - CELLULITIS, UNSPECIFIED Qualifiers: Site of cellulitis: extremity Site of cellulitis of extremity: lower extremity Laterality: left Qualified Code(s): L03.116 - Cellulitis of left lower limb (2) Injury, foot Assessment/Plan: left is is some what cold pulses weak will order arterial doppler Code(s): S99.929A - UNSPECIFIED INJURY OF UNSPECIFIED FOOT, INITIAL ENCOUNTER Qualifiers: Encounter type: initial encounter Laterality: left Qualified Code(s ): S99.922A - Unspecified injury of left foot, initial encounter (3) Rapid atrial fibrillation Assessment/Plan: ON XERALTO BB Code(s): I48.91 - UNSPECIFIED ATRIAL FIBRILLATION (4) COPD (chronic obstructive pulmonary disease) with emphysema Code(s): J43.9 - EMPHYSEMA, UNSPECIFIED (5) A-fib Code(s): I48.91 - UNSPECIFIED ATRIAL FIBRILLATION Qualifiers: Atrial fibrillation type: chronic Qualified Code(s): I48.2 - Chronic atrial fibrillation Assessment/Plan Laboratory Tests 08/13/16 08/13/16 08/13/16 11:45 11:45 11:45 WBC 16.6 H RBC 4.96 Hgb 15.2 Hct 47.2 H MCV 95.2 MCHC 32.3 RDW 15.0 Plt Count 226 MPV 9.0 Neutrophils % 74.0 Lymphocytes % 14.0 D Monocytes % 9.0 D Eosinophils % 1.0 D Basophils % 0.0 Band Neutrophils 1.0 Differential Comment Manual diff done Reactive Lymphocytes 1 Platelet Estimate Adequate Sodium 144 Potassium 3.8 Chloride 104 Carbon Dioxide 29 Anion Gap 11 BUN 12 D Creatinine 1.2 H Creat Clearance w eGFR 45.23 Random Glucose 102 D Lactic Acid 2.0 Calcium 8.7 Total Bilirubin 0.7 D AST 28 D ALT 40 D Alkaline Phosphatase 83 D Creatine Kinase 92 Troponin I < 0.02 Total Protein 7.5 Albumin 3.0 L Urine Color Urine Appearance Urine pH Urine Protein Urine Glucose (UA) Urine Ketones Urine Blood Urine Nitrite Urine Bilirubin Urine Urobilinogen Ur Leukocyte Esterase Urine RBC Urine WBC Ur Epithelial Cells Urine Bacteria Hyaline Casts Urine Mucus Opiates Screen Methadone Screen Barbiturate Screen Phencyclidine Screen Ur Amphetamines Screen MDMA (Ecstasy) Screen Benzodiazepines Screen Cocaine Screen U Marijuana (THC) Screen 08/13/16 08/13/16 18:45 18:45 WBC RBC Hgb Hct MCV MCHC RDW Plt Count MPV Neutrophils % Lymphocytes % Monocytes % Eosinophils % Basophils % Band Neutrophils Differential Comment Reactive Lymphocytes Platelet Estimate Sodium Potassium Chloride Carbon Dioxide Anion Gap BUN Creatinine Creat Clearance w eGFR Random Glucose Lactic Acid Calcium Total Bilirubin AST ALT Alkaline Phosphatase Creatine Kinase Troponin I Total Protein Albumin Urine Color Yellow Urine Appearance Clear Urine pH 5.0 Urine Protein Negative Urine Glucose (UA) Negative Urine Ketones Negative Urine Blood Negative Urine Nitrite Negative Urine Bilirubin Negative Urine Urobilinogen Negative Ur Leukocyte Esterase Trace H Urine RBC 4 Urine WBC 1 Ur Epithelial Cells Rare Urine Bacteria Rare Hyaline Casts 4 Urine Mucus Rare Opiates Screen Negative Methadone Screen Positive Barbiturate Screen Negative Phencyclidine Screen Negative Ur Amphetamines Screen Negative MDMA (Ecstasy) Screen Negative Benzodiazepines Screen Positive Cocaine Screen Negative U Marijuana (THC) Screen Positive Active Medications Generic Name Dose Route Start Last Admin Trade Name Freq PRN Reason Stop Dose Admin Acetaminophen 650 mg 08/13/16 21:31 08/14/16 21:53 Tylenol - PO 650 mg Q6H PRN Administration FEVER OR PAIN Aclidinium [place] 1 puff 08/14/16 10:45 08/16/16 10:20 Tudorza - IH 1 puff BID [facility] Administration Budesonide/Formoterol Fumarate 2 puff 08/14/16 22:00 08/16/16 09:06 Symbicort 80/4.5mcg - IH 2 puff BID [facility] Administration Clindamycin HCl 300 mg 08/15/16 18:00 08/16/16 17:56 Cleocin - PO 300 mg Q6HPO [facility] Administration Clonazepam 1 mg 08/14/16 22:00 08/16/16 09:08 Klonopin - PO 1 mg BID [facility] Administration Digoxin 0.125 mg 08/14/16 10:00 08/16/16 09:00 Lanoxin - PO 0.125 mg DAILY [facility] Administration Diltiazem HCl 30 mg 08/14/16 19:45 08/16/16 17:55 Cardizem - PO 08/16/16 23:00 30 mg QID [facility] Administration Diltiazem HCl 120 mg 08/17/16 10:00 Cardizem Cd - PO DAILY [facility] Furosemide 40 mg 08/15/16 10:00 08/16/16 08:59 Lasix - PO 40 mg DAILY [facility] Administration Gabapentin 300 mg 08/14/16 22:00 08/16/16 15:19 Neurontin - PO 300 mg TID [facility] Administration Piperacillin Sod/Tazobactam Sod 50 mls @ 100 mls/hr 08/14/16 18:00 08/16/16 17: 56 Zosyn 3.375gm Ivpb (Pre-Docked) IVPB 100 mls/hr Q8H-IV [facility] Administration Protocol Levetiracetam 500 mg 08/13/16 22:00 08/16/16 08:59 Keppra - PO 500 mg BID [facility] Administration Methadone HCl 40 mg/ Methadone 65 mg 08/15/16 06:15 08/16/16 06:43 HCl 20 mg/ Methadone HCl 5 mg PO 65 mg DAILY@0600 [facility] Administration Propranolol HCl 60 mg 08/16/16 12:00 08/16/16 16:47 Inderal La - PO 60 mg DAILY [facility] Administration Quetiapine Fumarate 25 mg 08/13/16 21:29 08/15/16 22:18 Seroquel - PO 25 mg DAILY PRN Administration ANXIETY Rivaroxaban 20 mg 08/14/16 10:00 08/16/16 08:59 Xarelto - PO 20 mg DAILY [facility] Administration Fluticasone/Salmeterol 1 puff 08/14/16 10:15 08/16/16 09:06 Advair 100mcg/50mcg - IH 1 puff BID [facility] Administration cardiology to look into cardiac meds
[2016-08-18] MEDS: CLINDAMYCIN HCL 150 MG CAPSULE (FP) PO SCH ×4 (00:30→17:01)
[2016-08-18] MEDS ORDERED: METHADONE HCL 40 MG DISPERSABLE TABLET ONE (05:44)
[2016-08-18] MEDS ORDERED: METHADONE HCL 10 MG TABLET ONE (05:44)
[2016-08-18] MEDS ORDERED: METHADONE HCL 5 MG TABLET ONE (05:44)
[2016-08-18] MEDS: METHADONE 40 MG, METHADONE 20 MG, METHADONE 5 MG PO SCH (06:34)
[2016-08-18] MEDS: GABAPENTIN 300 MG CAPSULE (FP) PO SCH ×3 (06:34→21:42)
[2016-08-18] MEDS: AMOX TR/POT CLAV 500MG/125MG TABLETS (FP) PO SCH ×2 (08:31→17:01)
[2016-08-18] MEDS: RIVAROXABAN 20 MG TABLET PO SCH (09:26)
[2016-08-18] MEDS: levETIRAcetam 500 MG TABLET (FP) PO SCH ×2 (09:26→21:42)
[2016-08-18] MEDS: DIGOXIN 0.125 MG TABLET (FP) PO SCH (09:26)
[2016-08-18] MEDS: FUROSEMIDE 40 MG TABLET (FP) PO SCH (09:26)
[2016-08-18] MEDS: BUDESONIDE/FORMETEROL FUMARATE 80/4.5 mcg INHALER IH SCH ×2 (09:28→21:43)
[2016-08-18] MEDS: FLUTICASONE/SALMETEROL 100 MCG/50 MCG DISKUS IH SCH ×2 (09:28→21:44)
[2016-08-18] MEDS: ACLIDINIUM BROMIDE 400 MCG/INH AERO.POWD IH SCH ×2 (09:29→21:45)
--- NOTE | 2016-08-18 11:48 | PN ---
Progress Note (short form) - Note Progress Note: s: no cp sob palps dizzy o: Vital Signs Period Temp Pulse Resp BP Sys/Smyth Pulse Ox Last 24 Hr 98 F-98.8 F 82-139 18-20 98-117/52-83 96-96 nad, no jvd irreg, tachy, s1s2 no mrg cta bl nl eff aaox3 no le e/c/c abd nt nd pos bs no jaundice diaphoresis Current Medications Generic Name Dose Route Start Last Admin Trade Name Freq PRN Reason Stop Dose Admin Acetaminophen 650 mg 08/13/16 21:31 08/14/16 21:53 Tylenol - PO 650 mg Q6H PRN Administration FEVER OR PAIN Aclidinium [place] 1 puff 08/14/16 10:45 08/18/16 09:29 Tudorza - IH 1 puff BID [facility] Administration Amoxicillin/Clavulanate Potassium 1 tab 08/17/16 17:30 08/18/16 08:31 Augmentin - 500mg Tablet PO 1 tab BID@0800,1730 [facility] Administration Budesonide/Formoterol Fumarate 2 puff 08/14/16 22:00 08/18/16 09:28 Symbicort 80/4.5mcg - IH 2 inh BID [facility] Administration Clindamycin HCl 300 mg 08/15/16 18:00 08/18/16 06:34 Cleocin - PO 300 mg Q6HPO [facility] Administration Digoxin 0.125 mg 08/14/16 10:00 08/18/16 09:26 Lanoxin - PO 0.125 mg DAILY [facility] Administration Diltiazem HCl 120 mg 08/17/16 10:00 08/18/16 09:26 Cardizem Cd - PO 120 mg DAILY [facility] Administration Furosemide 40 mg 08/15/16 10:00 08/18/16 09:26 Lasix - PO 40 mg DAILY [facility] Administration Gabapentin 300 mg 08/14/16 22:00 08/18/16 06:34 Neurontin - PO 300 mg TID [facility] Administration Levetiracetam 500 mg 08/13/16 22:00 08/18/16 09:26 Keppra - PO 500 mg BID [facility] Administration Methadone HCl 40 mg/ Methadone 65 mg 08/15/16 06:15 08/18/16 06:34 HCl 20 mg/ Methadone HCl 5 mg PO 65 mg DAILY@0600 [facility] Administration Propranolol HCl 60 mg 08/16/16 12:00 08/18/16 09:26 Inderal La - PO 60 mg DAILY [facility] Administration Quetiapine Fumarate 25 mg 08/13/16 21:29 08/16/16 23:15 Seroquel - PO 25 mg DAILY PRN Administration ANXIETY Rivaroxaban 20 mg 08/14/16 10:00 08/18/16 09:26 Xarelto - PO 20 mg DAILY [facility] Administration Fluticasone/Salmeterol 1 puff 08/14/16 10:15 08/18/16 09:28 Advair 100mcg/50mcg - IH 1 puff BID [facility] Administration CBC, BMP 08/16/16 05:48 08/16/16 05:48 mibi 2012: no ischemia Echo 07/2016: nl lv/rv. 1+ lae, 1+ mr/tr Echo 12/2015: nl LVSF; nl RV; mild MR/TR; RVSP 30-40 CXR here with increased interstitial markings c/w chronic lung disease, but can' t exclude mild congestion. similar to priors. ekg: afib 125 bpm. lat STD/TWI tele: afib rate low 100s now, rvr at times a/p: 66 yo smoker on methadone maintenance who presents with hx pafib, hx pe on xarelto, copd, htn, anxiety, , lung cancer resected August 2012 at [facility], no h/o of RT or chemo, adenoma, RA, Hep C, thyroid nodules, buergers disaese who p/w left foot pain atrial fibrillation -pt does not seem to feel her afib as she denies any palpitations here or at home -here with rvr initially. on dilt, dig, inderal as outpatient. initially with low bp's so held inderal but still having rvr at times so will cont dilt and dig but also resumed inderal at 60 mg qd starting 08/16. Monitor on tele, will increase dilt or inderal further if bp allows. -CHADS VASC 2--has been maintained on AC (xarelto at home), with h/o PE noted. -she has had recent frequent seizures and falls with acute and old rib fractures on admission xrays, reports recent ankle injury from fall. -the ? of AC is not just an AF question. with CHADS-VASC of 2 and no prior known cva (and none seen on CT head currently, and 2016 MRI brain), it is reasonable to consider stopping AC at least until her outpt neuro w/u (sees roland) is completed and can observe if her sz's and falls can be adequately controlled. risk of cardioembolic CVA is approx 2%/year and it seems that over the next few months her risk of falling and injuring herself is higher than this. HOWEVER it is unknown whether prior PE was provoked or unprovoked, and whether she had hypercoagulable workup done. pt also reports to dr mclain on past admit that she had recent LLE DVT few mo ago (changed coumadin to xarelto then, ? compliance issue with coumadin f/u and INRs). Therefore, risks of life-threatening PE could potentially be prohibitive here, depending on that info--hence need to defer decision about stopping AC to pt's PMD who knows her from before, and if her VTE risk has not previously been well defined, it would need to be done as outpatient. Therefore, on recent past admit continued AC with close follow up with pmd d/w'd dr mclain and her resident the above consideration, and need for appropriate pt counselling and outpt transfer of this important care consideration. diastolic CHF -currently appears euvolemic would cont same outpatient lasix dosing. lasix 40 mg/day. Lt foot pain, infection: - management per pmd, ID, vascular sob, copd, - chronic sob at baseline, stable. per pmd + tob/copd - smoking cessation counseling h/o PE: -? details of prior event -on xarelto. See discussion above. HTN: -stable h/o heroin abuse: -on methadone maintenance
[2016-08-18] MEDS ORDERED: PT OWN MED DRAWER 7, Y5N ONE (16:54)
--- NOTE | 2016-08-18 18:21 | PN ---
Progress Note, Physician History of Present Illness: no complaints - Current Medication List Current Medications: Active Medications Acetaminophen (Tylenol -) 650 mg PO Q6H PRN PRN Reason: FEVER OR PAIN Last Admin: 08/14/16 21:53 Dose: 650 mg Aclidinium [place] (Tudorza -) 1 puff IH BID [facility] Last Admin: 08/18/16 09:29 Dose: 1 puff Amoxicillin/Clavulanate Potassium (Augmentin - 500mg Tablet) 1 tab PO BID@0800, 1730 [facility] Last Admin: 08/18/16 17:01 Dose: 1 tab Budesonide/Formoterol Fumarate (Symbicort 80/4.5mcg -) 2 puff IH BID [facility] Last Admin: 08/18/16 09:28 Dose: 2 inh Clindamycin HCl (Cleocin -) 300 mg PO Q6HPO [facility] Last Admin: 08/18/16 17:01 Dose: 300 mg Digoxin (Lanoxin -) 0.125 mg PO DAILY [facility] Last Admin: 08/18/16 09:26 Dose: 0.125 mg Diltiazem HCl (Cardizem Cd -) 120 mg PO DAILY [facility] Last Admin: 08/18/16 09:26 Dose: 120 mg Furosemide (Lasix -) 40 mg PO DAILY [facility] Last Admin: 08/18/16 09:26 Dose: 40 mg Gabapentin (Neurontin -) 300 mg PO TID [facility] Last Admin: 08/18/16 13:58 Dose: 300 mg Levetiracetam (Keppra -) 500 mg PO BID [facility] Last Admin: 08/18/16 09:26 Dose: 500 mg Methadone HCl 40 mg/ Methadone (HCl 20 mg/ Methadone HCl 5 mg) 65 mg PO DAILY@ 0600 [facility] Last Admin: 08/18/16 06:34 Dose: 65 mg Propranolol HCl (Inderal La -) 60 mg PO DAILY [facility] Last Admin: 08/18/16 09:26 Dose: 60 mg Quetiapine Fumarate (Seroquel -) 25 mg PO DAILY PRN PRN Reason: ANXIETY Last Admin: 08/16/16 23:15 Dose: 25 mg Rivaroxaban (Xarelto -) 20 mg PO DAILY [facility] Last Admin: 08/18/16 09:26 Dose: 20 mg Fluticasone/Salmeterol (Advair 100mcg/50mcg -) 1 puff IH BID [facility] Last Admin: 08/18/16 09:28 Dose: 1 puff - Objective Vital Signs: Vital Signs Temperature 99 F 08/18/16 14:00 Pulse Rate 85 08/18/16 14:00 Respiratory Rate 20 08/18/16 14:00 Blood Pressure 100/64 08/18/16 14:00 O2 Sat by Pulse Oximetry (%) 96 08/18/16 07:08 Constitutional: Yes: No Distress HENT: Yes: Atraumatic Neck: Yes: Supple Cardiovascular: Yes: Regular Rate and Rhythm Respiratory: Yes: CTA Bilaterally Gastrointestinal: Yes: Normal Bowel Sounds Extremities: Yes: Other (left foot cellulitis) Neurological: Yes: Alert, Oriented Labs: CBC, BMP 08/16/16 05:48 08/16/16 05:48 Problem List - Problems (1) Cellulitis Assessment/Plan: IV ABX CXS ID CONSULT Code(s): L03.90 - CELLULITIS, UNSPECIFIED Qualifiers: Site of cellulitis: extremity Site of cellulitis of extremity: lower extremity Laterality: left Qualified Code(s): L03.116 - Cellulitis of left lower limb (2) Injury, foot Assessment/Plan: left is is some what cold pulses weak will order arterial doppler Code(s): S99.929A - UNSPECIFIED INJURY OF UNSPECIFIED FOOT, INITIAL ENCOUNTER Qualifiers: Encounter type: initial encounter Laterality: left Qualified Code(s ): S99.922A - Unspecified injury of left foot, initial encounter (3) Rapid atrial fibrillation Assessment/Plan: ON XERALTO BB Code(s): I48.91 - UNSPECIFIED ATRIAL FIBRILLATION (4) COPD (chronic obstructive pulmonary disease) with emphysema Code(s): J43.9 - EMPHYSEMA, UNSPECIFIED (5) A-fib Code(s): I48.91 - UNSPECIFIED ATRIAL FIBRILLATION Qualifiers: Atrial fibrillation type: chronic Qualified Code(s): I48.2 - Chronic atrial fibrillation
[2016-08-18] MEDS: QUEtiapine FUMARATE 25 MG TABLET (FP) PO PRN (21:43)
[2016-08-19] MEDS: CLINDAMYCIN HCL 150 MG CAPSULE (FP) PO SCH ×4 (00:03→18:03)
[2016-08-19] MEDS ORDERED: METHADONE HCL 40 MG DISPERSABLE TABLET ONE (05:57)
[2016-08-19] MEDS ORDERED: METHADONE HCL 10 MG TABLET ONE (05:57)
[2016-08-19] MEDS ORDERED: METHADONE HCL 5 MG TABLET ONE (05:57)
[2016-08-19] MEDS: GABAPENTIN 300 MG CAPSULE (FP) PO SCH ×3 (05:58→21:19)
[2016-08-19] MEDS: METHADONE 40 MG, METHADONE 20 MG, METHADONE 5 MG PO SCH (05:59)
[2016-08-19] MEDS ORDERED: PT OWN MED DRAWER 7, Y5N ONE ×3 (08:44→21:16)
[2016-08-19] MEDS: FLUTICASONE/SALMETEROL 100 MCG/50 MCG DISKUS IH SCH ×2 (09:03→21:19)
[2016-08-19] MEDS: ACLIDINIUM BROMIDE 400 MCG/INH AERO.POWD IH SCH ×2 (09:03→21:19)
[2016-08-19] MEDS: AMOX TR/POT CLAV 500MG/125MG TABLETS (FP) PO SCH ×2 (09:03→18:03)
[2016-08-19] MEDS: FUROSEMIDE 40 MG TABLET (FP) PO SCH (09:04)
[2016-08-19] MEDS: RIVAROXABAN 20 MG TABLET PO SCH (09:04)
[2016-08-19] MEDS: DIGOXIN 0.125 MG TABLET (FP) PO SCH (09:04)
[2016-08-19] MEDS: BUDESONIDE/FORMETEROL FUMARATE 80/4.5 mcg INHALER IH SCH ×2 (09:04→21:19)
[2016-08-19] MEDS: levETIRAcetam 500 MG TABLET (FP) PO SCH ×2 (09:05→21:19)
--- NOTE | 2016-08-19 11:14 | PN ---
Progress Note (short form) - Note Progress Note: s: no cp sob palps dizzy o: Vital Signs Period Temp Pulse Resp BP Sys/Smyth Pulse Ox Last 24 Hr 98.2 F-99.1 F 73-121 18-30 100-115/56-76 95-98 nad, no jvd irreg, tachy, s1s2 no mrg cta bl nl eff aaox3 no le e/c/c abd nt nd pos bs no jaundice diaphoresis Current Medications Generic Name Dose Route Start Last Admin Trade Name Freq PRN Reason Stop Dose Admin Acetaminophen 650 mg 08/13/16 21:31 08/14/16 21:53 Tylenol - PO 650 mg Q6H PRN Administration FEVER OR PAIN Aclidinium [place] 1 puff 08/14/16 10:45 08/19/16 09:03 Tudorza - IH 1 puff BID LORRIE Administration Amoxicillin/Clavulanate Potassium 1 tab 08/17/16 17:30 08/19/16 09:03 Augmentin - 500mg Tablet PO 1 tab BID@0800,1730 LORRIE Administration Budesonide/Formoterol Fumarate 2 puff 08/14/16 22:00 08/19/16 09:04 Symbicort 80/4.5mcg - IH 2 inh BID LORRIE Administration Clindamycin HCl 300 mg 08/15/16 18:00 08/19/16 05:59 Cleocin - PO 300 mg Q6HPO LORRIE Administration Digoxin 0.125 mg 08/14/16 10:00 08/19/16 09:04 Lanoxin - PO 0.125 mg DAILY LORRIE Administration Diltiazem HCl 120 mg 08/17/16 10:00 08/19/16 09:04 Cardizem Cd - PO 120 mg DAILY LORRIE Administration Furosemide 40 mg 08/15/16 10:00 08/19/16 09:04 Lasix - PO 40 mg DAILY LORRIE Administration Gabapentin 300 mg 08/14/16 22:00 08/19/16 05:58 Neurontin - PO 300 mg TID LORRIE Administration Levetiracetam 500 mg 08/13/16 22:00 08/19/16 09:05 Keppra - PO 500 mg BID LORRIE Administration Methadone HCl 40 mg/ Methadone 65 mg 08/15/16 06:15 08/19/16 05:59 HCl 20 mg/ Methadone HCl 5 mg PO 65 mg DAILY@0600 LORRIE Administration Propranolol HCl 120 mg 08/19/16 11:12 Inderal La - PO DAILY LORRIE Quetiapine Fumarate 25 mg 08/13/16 21:29 08/18/16 21:43 Seroquel - PO 25 mg DAILY PRN Administration ANXIETY Rivaroxaban 20 mg 08/14/16 10:00 08/19/16 09:04 Xarelto - PO 20 mg DAILY LORRIE Administration Fluticasone/Salmeterol 1 puff 08/14/16 10:15 08/19/16 09:03 Advair 100mcg/50mcg - IH 1 puff BID LORRIE Administration CBC, BMP 08/16/16 05:48 08/16/16 05:48 mibi 2012: no ischemia Echo 07/2016: nl lv/rv. 1+ lae, 1+ mr/tr Echo 12/2015: nl LVSF; nl RV; mild MR/TR; RVSP 30-40 CXR here with increased interstitial markings c/w chronic lung disease, but can' t exclude mild congestion. similar to priors. ekg: afib 125 bpm. lat STD/TWI tele: afib rate <110 at rest a/p: 66 yo smoker on methadone maintenance who presents with hx pafib, hx pe on xarelto, copd, htn, anxiety, , lung cancer resected August 2012 at [facility], no h/o of RT or chemo, adenoma, RA, Hep C, thyroid nodules, buergers disaese who p/w left foot pain atrial fibrillation -pt does not seem to feel her afib as she denies any palpitations here or at home -here with rvr initially. on dilt, dig, inderal as outpatient. initially with low bp's so held inderal but still having rvr at times so will cont dilt and dig but also resumed inderal at 60 mg qd starting 08/16. HR still a little fast at times so will increase to home dose inderal 120 qd now. Monitor on tele. -CHADS VASC 2--has been maintained on AC (xarelto at home), with h/o PE noted. -she has had recent frequent seizures and falls with acute and old rib fractures on admission xrays, reports recent ankle injury from fall. -the ? of AC is not just an AF question. with CHADS-VASC of 2 and no prior known cva (and none seen on CT head currently, and 2016 MRI brain), it is reasonable to consider stopping AC at least until her outpt neuro w/u (sees roland) is completed and can observe if her sz's and falls can be adequately controlled. risk of cardioembolic CVA is approx 2%/year and it seems that over the next few months her risk of falling and injuring herself is higher than this. HOWEVER it is unknown whether prior PE was provoked or unprovoked, and whether she had hypercoagulable workup done. pt also reports to dr mclain on past admit that she had recent LLE DVT few mo ago (changed coumadin to xarelto then, ? compliance issue with coumadin f/u and INRs). Therefore, risks of life-threatening PE could potentially be prohibitive here, depending on that info--hence need to defer decision about stopping AC to pt's PMD who knows her from before, and if her VTE risk has not previously been well defined, it would need to be done as outpatient. Therefore, on recent past admit continued AC with close follow up with pmd d/w'd dr mclain and her resident the above consideration, and need for appropriate pt counselling and outpt transfer of this important care consideration. diastolic CHF -currently appears euvolemic would cont same outpatient lasix dosing. lasix 40 mg/day. Lt foot pain, infection: - management per pmd, ID, vascular sob, copd, - chronic sob at baseline, stable. per pmd + tob/copd - smoking cessation counseling h/o PE: -? details of prior event -on xarelto. See discussion above. HTN: -stable h/o heroin abuse: -on methadone maintenance
--- NOTE | 2016-08-19 14:24 | PN ---
Progress Note, Physician History of Present Illness: left feet cold other hernandez patient doing well - Current Medication List Current Medications: Active Medications Acetaminophen (Tylenol -) 650 mg PO Q6H PRN PRN Reason: FEVER OR PAIN Last Admin: 08/14/16 21:53 Dose: 650 mg Aclidinium [place] (Tudorza -) 1 puff IH BID [facility] Last Admin: 08/19/16 09:03 Dose: 1 puff Amoxicillin/Clavulanate Potassium (Augmentin - 500mg Tablet) 1 tab PO BID@0800, 1730 [facility] Last Admin: 08/19/16 09:03 Dose: 1 tab Budesonide/Formoterol Fumarate (Symbicort 80/4.5mcg -) 2 puff IH BID [facility] Last Admin: 08/19/16 09:04 Dose: 2 inh Clindamycin HCl (Cleocin -) 300 mg PO Q6HPO [facility] Last Admin: 08/19/16 12:03 Dose: 300 mg Digoxin (Lanoxin -) 0.125 mg PO DAILY [facility] Last Admin: 08/19/16 09:04 Dose: 0.125 mg Diltiazem HCl (Cardizem Cd -) 120 mg PO DAILY [facility] Last Admin: 08/19/16 09:04 Dose: 120 mg Furosemide (Lasix -) 40 mg PO DAILY [facility] Last Admin: 08/19/16 09:04 Dose: 40 mg Gabapentin (Neurontin -) 300 mg PO TID [facility] Last Admin: 08/19/16 13:58 Dose: 300 mg Levetiracetam (Keppra -) 500 mg PO BID [facility] Last Admin: 08/19/16 09:05 Dose: 500 mg Methadone HCl 40 mg/ Methadone (HCl 20 mg/ Methadone HCl 5 mg) 65 mg PO DAILY@ 0600 [facility] Last Admin: 08/19/16 05:59 Dose: 65 mg Propranolol HCl (Inderal La -) 120 mg PO DAILY [facility] Quetiapine Fumarate (Seroquel -) 25 mg PO DAILY PRN PRN Reason: ANXIETY Last Admin: 08/18/16 21:43 Dose: 25 mg Rivaroxaban (Xarelto -) 20 mg PO DAILY [facility] Last Admin: 08/19/16 09:04 Dose: 20 mg Fluticasone/Salmeterol (Advair 100mcg/50mcg -) 1 puff IH BID [facility] Last Admin: 08/19/16 09:03 Dose: 1 puff - Objective Vital Signs: Vital Signs Temperature 98.3 F 08/19/16 07:48 Pulse Rate 110 H 08/19/16 09:04 Respiratory Rate 18 08/19/16 07:48 Blood Pressure 107/63 08/19/16 07:48 O2 Sat by Pulse Oximetry (%) 98 08/19/16 07:27 Constitutional: Yes: No Distress, Calm Cardiovascular: Yes: Regular Rate and Rhythm Respiratory: Yes: Regular, CTA Bilaterally Gastrointestinal: Yes: Normal Bowel Sounds, Soft Musculoskeletal: Yes: Other Extremities: Yes: Other (left leg cold) Integumentary: Yes: Other (cold left leg) Neurological: Yes: Alert, Oriented Psychiatric: Yes: Alert, Oriented Labs: CBC, BMP 08/16/16 05:48 08/16/16 05:48 Assessment/Plan - Problems ( Problems (1) Cellulitis Code(s): L03.90 - CELLULITIS, UNSPECIFIED Qualifiers: Site of cellulitis: extremity Site of cellulitis of extremity: lower extremity Laterality: left Qualified Code(s): L03.116 - Cellulitis of left lower limb (2) Injury, foot Code(s): S99.929A - UNSPECIFIED INJURY OF UNSPECIFIED FOOT, INITIAL ENCOUNTER Qualifiers: Encounter type: initial encounter Laterality: left Qualified Code(s ): S99.922A - Unspecified injury of left foot, initial encounter (3) Rapid atrial fibrillation Code(s): I48.91 - UNSPECIFIED ATRIAL FIBRILLATION (4) COPD (chronic obstructive pulmonary disease) with emphysema Code(s): J43.9 - EMPHYSEMA, UNSPECIFIED (5) A-fib Code(s): I48.91 - UNSPECIFIED ATRIAL FIBRILLATION Qualifiers: Atrial fibrillation type: chronic Qualified Code(s): I48.2 - Chronic atrial fibrillation plan continue current mgmt will consider stopping abx arterial studies vascular plan rest as per primary
--- NOTE | 2016-08-19 14:56 | DS ---
Physical Examination Vital Signs: Vital Signs Temperature 98.7 F 08/19/16 14:00 Pulse Rate 80 08/19/16 14:00 Respiratory Rate 20 08/19/16 14:00 Blood Pressure 117/72 08/19/16 14:00 O2 Sat by Pulse Oximetry (%) 98 08/19/16 07:27 Constitutional: Yes: No Distress HENT: Yes: Atraumatic Neck: Yes: Supple Cardiovascular: Yes: Regular Rate and Rhythm Respiratory: Yes: CTA Bilaterally Gastrointestinal: Yes: Normal Bowel Sounds Extremities: Yes: Other (left foot resolving cellulitis) Neurological: Yes: Alert, Oriented Labs: CBC, BMP 08/16/16 05:48 08/16/16 05:48 Discharge Summary Reason For Visit: FOOT INJURY; RAPID ATRIAL FIBRILLATION Current Active Problems Cellulitis (Acute) Injury, foot (Acute) Rapid atrial fibrillation (Acute) Respiration disorder (Acute) A-fib (Chronic) - Instructions Diet, Activity, Other Instructions: see your doctor 1 week Referrals: STAFF,NOT ON [Primary Care Provider] - Nilay Paniagua MD [Staff Physician] - Joshua Corrales MD [Staff Physician] - Marianne Morrell MD [Staff Physician] - - Home Medications Comprehensive Discharge Medication List: Ambulatory Orders Methadone [Dolophine -] 65 mg PO DAILY 10/19/14 Tiotropium [place] [Spiriva] 1 inh PO BID 10/19/14 Albuterol Sulfate Inhaler - [Ventolin HFA Inhaler -] 2 inh PO Q4H PRN 12/08/15 Rivaroxaban [Xarelto -] 20 mg PO DAILY 12/10/15 Fluticasone/Salmeterol [Advair 250-50 Diskus] 1 puff IN BID 07/08/16 Gabapentin [Neurontin] 300 mg PO TID 07/08/16 Albuterol 2.5/Ipratropium 0.5 [Duoneb -] 1 amp NEB Q6H PRN #30 amp 07/16/16 Albuterol 2.5/Ipratropium 0.5 [Duoneb -] 1 amp NEB QIDR 30 Days 07/16/16 Digoxin [Lanoxin -] 0.125 mg PO DAILY #30 tablet 07/16/16 Diltiazem [Cardizem -] 90 mg PO QID #120 tablet 07/16/16 Docusate Sodium [Colace -] 100 mg PO TID #100 capsule 07/16/16 Levetiracetam [Keppra -] 500 mg PO BID #60 tab 07/16/16 Levetiracetam [Keppra -] 500 mg PO BID #60 tablet 07/16/16 Lidocaine 5% Patch [Lidoderm -] 1 patch TP DAILY #15 patch 07/16/16 Nicotine Patch [Nicoderm Patch -] 1 patch TD DAILY #7 patch 07/16/16 Prednisone [Deltasone -] 40 mg PO DAILY #30 tablet 07/16/16 Propranolol HCl [Inderal LA -] 120 mg PO DAILY #30 cap 07/16/16 Quetiapine Fumarate [Seroquel -] 25 mg PO DAILY PRN #30 tablet 07/16/16 Quetiapine Fumarate [Seroquel -] 300 mg PO HS #30 tablet 07/16/16 Unobtainable 08/13/16 Clonazepam [Klonopin -] 1 mg PO BID 08/14/16 Amox-Tr/K Cl [Augmentin 500-125mg Tablet -] 1 tab PO BID@0800,1730 #14 tablet dc home fu pmd 1 week
--- NOTE | 2016-08-19 15:54 | PN ---
Progress Note, Physician History of Present Illness: no complaints - Current Medication List Current Medications: Active Medications Acetaminophen (Tylenol -) 650 mg PO Q6H PRN PRN Reason: FEVER OR PAIN Last Admin: 08/14/16 21:53 Dose: 650 mg Aclidinium [place] (Tudorza -) 1 puff IH BID [facility] Last Admin: 08/19/16 09:03 Dose: 1 puff Amoxicillin/Clavulanate Potassium (Augmentin - 500mg Tablet) 1 tab PO BID@0800, 1730 [facility] Last Admin: 08/19/16 09:03 Dose: 1 tab Budesonide/Formoterol Fumarate (Symbicort 80/4.5mcg -) 2 puff IH BID [facility] Last Admin: 08/19/16 09:04 Dose: 2 inh Clindamycin HCl (Cleocin -) 300 mg PO Q6HPO [facility] Last Admin: 08/19/16 12:03 Dose: 300 mg Digoxin (Lanoxin -) 0.125 mg PO DAILY [facility] Last Admin: 08/19/16 09:04 Dose: 0.125 mg Diltiazem HCl (Cardizem Cd -) 120 mg PO DAILY [facility] Last Admin: 08/19/16 09:04 Dose: 120 mg Furosemide (Lasix -) 40 mg PO DAILY [facility] Last Admin: 08/19/16 09:04 Dose: 40 mg Gabapentin (Neurontin -) 300 mg PO TID [facility] Last Admin: 08/19/16 13:58 Dose: 300 mg Levetiracetam (Keppra -) 500 mg PO BID [facility] Last Admin: 08/19/16 09:05 Dose: 500 mg Methadone HCl 40 mg/ Methadone (HCl 20 mg/ Methadone HCl 5 mg) 65 mg PO DAILY@ 0600 [facility] Last Admin: 08/19/16 05:59 Dose: 65 mg Propranolol HCl (Inderal La -) 120 mg PO DAILY [facility] Quetiapine Fumarate (Seroquel -) 25 mg PO DAILY PRN PRN Reason: ANXIETY Last Admin: 08/18/16 21:43 Dose: 25 mg Rivaroxaban (Xarelto -) 20 mg PO DAILY [facility] Last Admin: 08/19/16 09:04 Dose: 20 mg Fluticasone/Salmeterol (Advair 100mcg/50mcg -) 1 puff IH BID [facility] Last Admin: 08/19/16 09:03 Dose: 1 puff - Objective Vital Signs: Vital Signs Temperature 98.7 F 08/19/16 14:00 Pulse Rate 80 08/19/16 14:00 Respiratory Rate 20 08/19/16 14:00 Blood Pressure 117/72 08/19/16 14:00 O2 Sat by Pulse Oximetry (%) 98 08/19/16 07:27 Constitutional: Yes: No Distress HENT: Yes: Atraumatic Neck: Yes: Supple Cardiovascular: Yes: Regular Rate and Rhythm Respiratory: Yes: CTA Bilaterally Extremities: Yes: Other (LEFT FOOT CELLULITIS MUCH IMPROVED) Peripheral Pulses: Left Doralis Pedis: 1+ Neurological: Yes: Alert, Oriented Labs: CBC, BMP 08/16/16 05:48 08/16/16 05:48 Problem List - Problems (1) Cellulitis Assessment/Plan: ON PO ABX ID CONSULT Code(s): L03.90 - CELLULITIS, UNSPECIFIED Qualifiers: Site of cellulitis: extremity Site of cellulitis of extremity: lower extremity Laterality: left Qualified Code(s): L03.116 - Cellulitis of left lower limb (2) Injury, foot Assessment/Plan: left is is some what cold pulses weak will order arterial doppler Code(s): S99.929A - UNSPECIFIED INJURY OF UNSPECIFIED FOOT, INITIAL ENCOUNTER Qualifiers: Encounter type: initial encounter Laterality: left Qualified Code(s ): S99.922A - Unspecified injury of left foot, initial encounter (3) Rapid atrial fibrillation Assessment/Plan: ON XERALTO BB Code(s): I48.91 - UNSPECIFIED ATRIAL FIBRILLATION (4) COPD (chronic obstructive pulmonary disease) with emphysema Code(s): J43.9 - EMPHYSEMA, UNSPECIFIED (5) A-fib Code(s): I48.91 - UNSPECIFIED ATRIAL FIBRILLATION Qualifiers: Atrial fibrillation type: chronic Qualified Code(s): I48.2 - Chronic atrial fibrillation
[2016-08-19] MEDS: QUEtiapine FUMARATE 25 MG TABLET (FP) PO PRN (21:19)
[2016-08-20] MEDS: CLINDAMYCIN HCL 150 MG CAPSULE (FP) PO SCH ×5 (00:24→23:29)
[2016-08-20] MEDS ORDERED: METHADONE HCL 10 MG TABLET ONE (04:56)
[2016-08-20] MEDS ORDERED: METHADONE HCL 5 MG TABLET ONE (04:57)
[2016-08-20] MEDS ORDERED: METHADONE HCL 40 MG DISPERSABLE TABLET ONE (04:57)
[2016-08-20] MEDS: GABAPENTIN 300 MG CAPSULE (FP) PO SCH ×3 (05:01→21:05)
[2016-08-20] MEDS: METHADONE 40 MG, METHADONE 20 MG, METHADONE 5 MG PO SCH (05:01)
[2016-08-20] MEDS: AMOX TR/POT CLAV 500MG/125MG TABLETS (FP) PO SCH ×2 (07:49→17:04)
[2016-08-20] MEDS ORDERED: PT OWN MED DRAWER 7, Y5N ONE ×2 (09:08→20:33)
[2016-08-20] MEDS: FUROSEMIDE 40 MG TABLET (FP) PO SCH (09:30)
[2016-08-20] MEDS: DIGOXIN 0.125 MG TABLET (FP) PO SCH (09:30)
[2016-08-20] MEDS: levETIRAcetam 500 MG TABLET (FP) PO SCH ×2 (09:31→21:05)
[2016-08-20] MEDS: RIVAROXABAN 20 MG TABLET PO SCH (09:31)
[2016-08-20] MEDS: ACLIDINIUM BROMIDE 400 MCG/INH AERO.POWD IH SCH ×2 (09:33→21:05)
[2016-08-20] MEDS: FLUTICASONE/SALMETEROL 100 MCG/50 MCG DISKUS IH SCH ×2 (09:34→21:05)
[2016-08-20] MEDS: BUDESONIDE/FORMETEROL FUMARATE 80/4.5 mcg INHALER IH SCH ×2 (09:35→21:05)
--- NOTE | 2016-08-20 09:56 | PN ---
Progress Note, Physician Chief Complaint: foot pain History of Present Illness: no sob or orthopnea--has been sleeping flat in bed at times no palpitations no cp +cigs - Current Medication List Current Medications: Active Medications Acetaminophen (Tylenol -) 650 mg PO Q6H PRN PRN Reason: FEVER OR PAIN Last Admin: 08/14/16 21:53 Dose: 650 mg Aclidinium [place] (Tudorza -) 1 puff IH BID [facility] Last Admin: 08/20/16 09:33 Dose: 1 puff Amoxicillin/Clavulanate Potassium (Augmentin - 500mg Tablet) 1 tab PO BID@0800, 1730 [facility] Last Admin: 08/20/16 07:49 Dose: 1 tab Budesonide/Formoterol Fumarate (Symbicort 80/4.5mcg -) 2 puff IH BID [facility] Last Admin: 08/20/16 09:35 Dose: 2 inh Clindamycin HCl (Cleocin -) 300 mg PO Q6HPO [facility] Last Admin: 08/20/16 05:01 Dose: 300 mg Digoxin (Lanoxin -) 0.125 mg PO DAILY [facility] Last Admin: 08/20/16 09:30 Dose: 0.125 mg Diltiazem HCl (Cardizem Cd -) 120 mg PO DAILY [facility] Last Admin: 08/20/16 09:30 Dose: 120 mg Furosemide (Lasix -) 40 mg PO DAILY [facility] Last Admin: 08/20/16 09:30 Dose: 40 mg Gabapentin (Neurontin -) 300 mg PO TID [facility] Last Admin: 08/20/16 05:01 Dose: 300 mg Levetiracetam (Keppra -) 500 mg PO BID [facility] Last Admin: 08/20/16 09:31 Dose: 500 mg Methadone HCl 40 mg/ Methadone (HCl 20 mg/ Methadone HCl 5 mg) 65 mg PO DAILY@ 0600 [facility] Last Admin: 08/20/16 05:01 Dose: 65 mg Propranolol HCl (Inderal La -) 120 mg PO DAILY [facility] Last Admin: 08/20/16 09:31 Dose: 120 mg Quetiapine Fumarate (Seroquel -) 25 mg PO DAILY PRN PRN Reason: ANXIETY Last Admin: 08/19/16 21:19 Dose: 25 mg Rivaroxaban (Xarelto -) 20 mg PO DAILY [facility] Last Admin: 08/20/16 09:31 Dose: 20 mg Fluticasone/Salmeterol (Advair 100mcg/50mcg -) 1 puff IH BID [facility] Last Admin: 08/20/16 09:34 Dose: 1 puff - Objective Vital Signs: Vital Signs Temperature 98 F 08/20/16 09:35 Pulse Rate 118 H 08/20/16 09:35 Respiratory Rate 20 08/20/16 09:35 Blood Pressure 98/64 08/20/16 09:35 O2 Sat by Pulse Oximetry (%) 98 08/19/16 20:04 Constitutional: Yes: No Distress, Calm Eyes: No: Sclera Icterus HENT: No: Nasal Congestion Cardiovascular: Yes: Regular Rate and Rhythm, S1, S2, Other (PMI non diplaced). No: Gallop, Murmur Respiratory: Yes: CTA Bilaterally, Wheezes (couple of scattered wheezes). No: Accessory Muscle Use, Rales Gastrointestinal: Yes: Normal Bowel Sounds, Soft. No: Tenderness Musculoskeletal: Yes: Other (No kyphosis) Extremities: No: Cold Edema: No Integumentary: No: Jaundice Neurological: Yes: Alert, Oriented (x3) Psychiatric: No: Agitated Labs: CBC, BMP 08/16/16 05:48 08/16/16 05:48 - ....Imaging EKG: Other (tele: AFib with HR 100s-110s) Assessment/Plan MIBI 2012: no ischemia Echo 07/2016: nl lv/rv. 1+ lae, 1+ mr/tr Echo 12/2015: nl LVSF; nl RV; mild MR/TR; RVSP 30-40 CXR here with increased interstitial markings c/w chronic lung disease, but can' t exclude mild congestion. similar to priors. ekg: afib 125 bpm. lat STD/TWI tele: afib rate <110 at rest a/p: 66 yo smoker on methadone maintenance who presents with hx pafib, hx pe on xarelto, copd, htn, anxiety, , lung cancer resected August 2012 at [facility], no h/o of RT or chemo, adenoma, RA, Hep C, thyroid nodules, buergers disaese who p/w left foot pain atrial fibrillation -pt does not seem to feel her afib as she denies any palpitations here or at home -here with rvr initially. on dilt, dig, inderal as outpatient. initially with low bp's so held inderal but still having rvr at times so will cont dilt and dig but also resumed inderal at 60 mg qd starting 08/16. HR still a little fast at times so increased to home dose inderal 120 qd now. -08/20: HR mildly rapid on tele. 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 on max dose inderal she is likely to tolerate given bronchospasm hx and ongoing mild wheezes -sbp 90s so cannot incr diltiazem further--cont CD 120 qd -on digoxin 0.125--level ordered -would not want to incr digoxin further given risks of D.I. with diltiazem -for now, will cont same meds -pt should have outpt f/u and reassess HR--would rec "lenient rate control strategy" here, and if remains <105-110 HR at rest in office, with no attributable tachy sx's and normal LVEF, not further intensify med regimen -CHADS VASC 2--has been maintained on AC (xarelto at home), with h/o PE noted. -she has had recent frequent seizures and falls with acute and old rib fractures on admission xrays, reports recent ankle injury from fall. -the ? of AC is not just an AF question. with CHADS-VASC of 2 and no prior known cva (and none seen on CT head currently, or on 2016 MRI brain), it is reasonable FROM AN AFIB PERSPECTIVE to consider stopping AC at least until her outpt neuro w/u (sees roland) is completed and can observe if her sz's and falls can be adequately controlled. risk of cardioembolic CVA is approx 2%/year and it seems that over the next few months her risk of falling and injuring herself is higher than this. HOWEVER it is unknown whether prior PE was provoked or unprovoked, and whether she had hypercoagulable workup done (pmd dr harris). pt had another, recent LLE DVT few mo ago (changed coumadin to xarelto then, ? compliance issue with coumadin f/u and INRs). Therefore, risks of life-threatening PE could potentially be prohibitive here, depending on that info. hence, AC decisions in the long-term need to be made by pt's pmd with appropriate heme input. Therefore, on recent past admit continued AC with close follow up with pmd (and dr hilario disc'd these considerations with both the pt and her outpt PMD dr harris at that time, and pt was to see pmd for further mgmt) diastolic CHF -currently appears euvolemic would cont same outpatient lasix dosing. lasix 40 mg/day. Lt foot pain, infection: - management per pmd, ID, vascular sob, copd, - chronic sob at baseline, stable. per pmd + tob/copd - smoking cessation counseling h/o DVT and PE: -? details of prior events -on xarelto. See discussion above. HTN: -stable h/o heroin abuse: -on methadone maintenance
--- NOTE | 2016-08-20 18:57 | PN ---
Progress Note, Physician History of Present Illness: DOING WELL - Current Medication List Current Medications: Active Medications Acetaminophen (Tylenol -) 650 mg PO Q6H PRN PRN Reason: FEVER OR PAIN Last Admin: 08/14/16 21:53 Dose: 650 mg Aclidinium [place] (Tudorza -) 1 puff IH BID [facility] Last Admin: 08/20/16 09:33 Dose: 1 puff Amoxicillin/Clavulanate Potassium (Augmentin - 500mg Tablet) 1 tab PO BID@0800, 1730 [facility] Last Admin: 08/20/16 17:04 Dose: 1 tab Budesonide/Formoterol Fumarate (Symbicort 80/4.5mcg -) 2 puff IH BID [facility] Last Admin: 08/20/16 09:35 Dose: 2 inh Clindamycin HCl (Cleocin -) 300 mg PO Q6HPO [facility] Last Admin: 08/20/16 17:05 Dose: 300 mg Digoxin (Lanoxin -) 0.125 mg PO DAILY [facility] Last Admin: 08/20/16 09:30 Dose: 0.125 mg Diltiazem HCl (Cardizem Cd -) 120 mg PO DAILY [facility] Last Admin: 08/20/16 09:30 Dose: 120 mg Furosemide (Lasix -) 40 mg PO DAILY [facility] Last Admin: 08/20/16 09:30 Dose: 40 mg Gabapentin (Neurontin -) 300 mg PO TID [facility] Last Admin: 08/20/16 13:37 Dose: 300 mg Levetiracetam (Keppra -) 500 mg PO BID [facility] Last Admin: 08/20/16 09:31 Dose: 500 mg Methadone HCl 40 mg/ Methadone (HCl 20 mg/ Methadone HCl 5 mg) 65 mg PO DAILY@ 0600 [facility] Last Admin: 08/20/16 05:01 Dose: 65 mg Propranolol HCl (Inderal La -) 120 mg PO DAILY [facility] Last Admin: 08/20/16 09:31 Dose: 120 mg Quetiapine Fumarate (Seroquel -) 25 mg PO DAILY PRN PRN Reason: ANXIETY Last Admin: 08/19/16 21:19 Dose: 25 mg Rivaroxaban (Xarelto -) 20 mg PO DAILY [facility] Last Admin: 08/20/16 09:31 Dose: 20 mg Fluticasone/Salmeterol (Advair 100mcg/50mcg -) 1 puff IH BID [facility] Last Admin: 08/20/16 09:34 Dose: 1 puff - Objective Vital Signs: Vital Signs Temperature 98.6 F 08/20/16 17:00 Pulse Rate 123 H 08/20/16 17:00 Respiratory Rate 20 08/20/16 17:00 Blood Pressure 103/55 08/20/16 17:00 O2 Sat by Pulse Oximetry (%) 98 08/20/16 09:00 Constitutional: Yes: No Distress HENT: Yes: Atraumatic Neck: Yes: Supple Cardiovascular: Yes: Regular Rate and Rhythm Respiratory: Yes: CTA Bilaterally Gastrointestinal: Yes: Normal Bowel Sounds Extremities: Yes: WNL Neurological: Yes: Alert, Oriented Labs: CBC, BMP 08/16/16 05:48 08/16/16 05:48 <Marianne Morrell - Last Filed: 08/20/16 19:58> History of Present Illness: stable no new issues events noted vascular to come on board - Current Medication List Current Medications: Active Medications Acetaminophen (Tylenol -) 650 mg PO Q6H PRN PRN Reason: FEVER OR PAIN Last Admin: 08/14/16 21:53 Dose: 650 mg Aclidinium [place] (Tudorza -) 1 puff IH BID [facility] Last Admin: 08/20/16 09:33 Dose: 1 puff Amoxicillin/Clavulanate Potassium (Augmentin - 500mg Tablet) 1 tab PO BID@0800, 1730 [facility] Last Admin: 08/20/16 17:04 Dose: 1 tab Budesonide/Formoterol Fumarate (Symbicort 80/4.5mcg -) 2 puff IH BID [facility] Last Admin: 08/20/16 09:35 Dose: 2 inh Clindamycin HCl (Cleocin -) 300 mg PO Q6HPO [facility] Last Admin: 08/20/16 17:05 Dose: 300 mg Digoxin (Lanoxin -) 0.125 mg PO DAILY [facility] Last Admin: 08/20/16 09:30 Dose: 0.125 mg Diltiazem HCl (Cardizem Cd -) 120 mg PO DAILY [facility] Last Admin: 08/20/16 09:30 Dose: 120 mg Furosemide (Lasix -) 40 mg PO DAILY [facility] Last Admin: 08/20/16 09:30 Dose: 40 mg Gabapentin (Neurontin -) 300 mg PO TID [facility] Last Admin: 08/20/16 13:37 Dose: 300 mg Levetiracetam (Keppra -) 500 mg PO BID [facility] Last Admin: 08/20/16 09:31 Dose: 500 mg Methadone HCl 40 mg/ Methadone (HCl 20 mg/ Methadone HCl 5 mg) 65 mg PO DAILY@ 0600 [facility] Last Admin: 08/20/16 05:01 Dose: 65 mg Propranolol HCl (Inderal La -) 120 mg PO DAILY [facility] Last Admin: 08/20/16 09:31 Dose: 120 mg Quetiapine Fumarate (Seroquel -) 25 mg PO DAILY PRN PRN Reason: ANXIETY Last Admin: 08/19/16 21:19 Dose: 25 mg Rivaroxaban (Xarelto -) 20 mg PO DAILY [facility] Last Admin: 08/20/16 09:31 Dose: 20 mg Fluticasone/Salmeterol (Advair 100mcg/50mcg -) 1 puff IH BID [facility] Last Admin: 08/20/16 09:34 Dose: 1 puff - Objective Vital Signs: Vital Signs Temperature 98.6 F 08/20/16 17:00 Pulse Rate 123 H 08/20/16 17:00 Respiratory Rate 20 08/20/16 17:00 Blood Pressure 103/55 08/20/16 17:00 O2 Sat by Pulse Oximetry (%) 98 08/20/16 09:00 Constitutional: Yes: No Distress, Calm Cardiovascular: Yes: Regular Rate and Rhythm Respiratory: Yes: Regular, CTA Bilaterally Gastrointestinal: Yes: Normal Bowel Sounds, Soft Musculoskeletal: Yes: Other Extremities: Yes: Other Neurological: Yes: Alert, Oriented Psychiatric: Yes: Alert Labs: CBC, BMP 08/16/16 05:48 08/16/16 05:48 <Joshua Corrales M - Last Filed: 08/23/16 15:44> Problem List - Problems (1) Cellulitis Assessment/Plan: ON PO ABX Code(s): L03.90 - CELLULITIS, UNSPECIFIED Qualifiers: Site of cellulitis: extremity Site of cellulitis of extremity: lower extremity Laterality: left Qualified Code(s): L03.116 - Cellulitis of left lower limb (2) Injury, foot Code(s): S99.929A - UNSPECIFIED INJURY OF UNSPECIFIED FOOT, INITIAL ENCOUNTER Qualifiers: Encounter type: initial encounter Laterality: left Qualified Code(s): S99.922A - Unspecified injury of left foot, initial encounter (3) Rapid atrial fibrillation Assessment/Plan: ON MEDS STABLE Code(s): I48.91 - UNSPECIFIED ATRIAL FIBRILLATION (4) COPD (chronic obstructive pulmonary disease) with emphysema Code(s): J43.9 - EMPHYSEMA, UNSPECIFIED (5) A-fib Code(s): I48.91 - UNSPECIFIED ATRIAL FIBRILLATION Qualifiers: Atrial fibrillation type: chronic Qualified Code(s): I48.2 - Chronic atrial fibrillation <Marianne Morrell - Last Filed: 08/20/16 19:58> Assessment/Plan VASCULAR FOLLOW UP <Marianne Morrell - Last Filed: 08/20/16 19:58> - Problems (1) Cellulitis Code(s): L03.90 - CELLULITIS, UNSPECIFIED Qualifiers: Site of cellulitis: extremity Site of cellulitis of extremity: lower extremity Laterality: left Qualified Code(s): L03.116 - Cellulitis of left lower limb (2) Injury, foot Code(s): S99.929A - UNSPECIFIED INJURY OF UNSPECIFIED FOOT, INITIAL ENCOUNTER Qualifiers: Encounter type: initial encounter Laterality: left Qualified Code(s ): S99.922A - Unspecified injury of left foot, initial encounter (3) Rapid atrial fibrillation Code(s): I48.91 - UNSPECIFIED ATRIAL FIBRILLATION (4) COPD (chronic obstructive pulmonary disease) with emphysema Code(s): J43.9 - EMPHYSEMA, UNSPECIFIED (5) A-fib Code(s): I48.91 - UNSPECIFIED ATRIAL FIBRILLATION Qualifiers: Atrial fibrillation type: chronic Qualified Code(s): I48.2 - Chronic atrial fibrillation plan continue current mgmt all cx results noted abx stopped <Joshua Corrales - Last Filed: 08/23/16 15:44>
--- NOTE | 2016-08-20 19:57 | PN ---
Progress Note (short form) - Note Progress Note: VAscular Surgery Pt seen and examined. CTA reviewed with pt. Pt has left common iliac artery occlusion. Explained to the pt that her claudication symptoms all come from her inflow disease. She would need angiogram,angioplasty with stent placement to open her left common iliac artery Currently she insists that she be discharged because she has a vacation coming up. If pt is not DC, then will need cardilogy clearance and will do angioplasty and stent placement on . Nilay Paniagua DO
--- NOTE | 2016-08-20 21:12 | PN ---
Progress Note, Physician History of Present Illness: DOING WELL - Current Medication List Current Medications: Active Medications Acetaminophen (Tylenol -) 650 mg PO Q6H PRN PRN Reason: FEVER OR PAIN Last Admin: 08/14/16 21:53 Dose: 650 mg Aclidinium [place] (Tudorza -) 1 puff IH BID [facility] Last Admin: 08/20/16 21:05 Dose: 1 puff Amoxicillin/Clavulanate Potassium (Augmentin - 500mg Tablet) 1 tab PO BID@0800, 1730 [facility] Last Admin: 08/20/16 17:04 Dose: 1 tab Budesonide/Formoterol Fumarate (Symbicort 80/4.5mcg -) 2 puff IH BID [facility] Last Admin: 08/20/16 21:05 Dose: 2 inh Clindamycin HCl (Cleocin -) 300 mg PO Q6HPO [facility] Last Admin: 08/20/16 17:05 Dose: 300 mg Digoxin (Lanoxin -) 0.125 mg PO DAILY [facility] Last Admin: 08/20/16 09:30 Dose: 0.125 mg Diltiazem HCl (Cardizem Cd -) 120 mg PO DAILY [facility] Last Admin: 08/20/16 09:30 Dose: 120 mg Furosemide (Lasix -) 40 mg PO DAILY [facility] Last Admin: 08/20/16 09:30 Dose: 40 mg Gabapentin (Neurontin -) 300 mg PO TID [facility] Last Admin: 08/20/16 21:05 Dose: 300 mg Levetiracetam (Keppra -) 500 mg PO BID [facility] Last Admin: 08/20/16 21:05 Dose: 500 mg Methadone HCl 40 mg/ Methadone (HCl 20 mg/ Methadone HCl 5 mg) 65 mg PO DAILY@ 0600 [facility] Last Admin: 08/20/16 05:01 Dose: 65 mg Propranolol HCl (Inderal La -) 120 mg PO DAILY [facility] Last Admin: 08/20/16 09:31 Dose: 120 mg Quetiapine Fumarate (Seroquel -) 25 mg PO DAILY PRN PRN Reason: ANXIETY Last Admin: 08/19/16 21:19 Dose: 25 mg Rivaroxaban (Xarelto -) 20 mg PO DAILY [facility] Last Admin: 08/20/16 09:31 Dose: 20 mg Fluticasone/Salmeterol (Advair 100mcg/50mcg -) 1 puff IH BID [facility] Last Admin: 08/20/16 21:05 Dose: 1 puff - Objective Vital Signs: Vital Signs Temperature 98.6 F 08/20/16 17:00 Pulse Rate 123 H 08/20/16 17:00 Respiratory Rate 20 08/20/16 17:00 Blood Pressure 103/55 08/20/16 17:00 O2 Sat by Pulse Oximetry (%) 98 08/20/16 09:00 Constitutional: Yes: No Distress HENT: Yes: Atraumatic Neck: Yes: Supple Cardiovascular: Yes: Regular Rate and Rhythm Respiratory: Yes: CTA Bilaterally Gastrointestinal: Yes: Normal Bowel Sounds Edema: LLE: Trace Peripheral Pulses: Left Doralis Pedis: 1+ Neurological: Yes: Alert, Oriented Labs: CBC, BMP 08/16/16 05:48 08/16/16 05:48 Problem List - Problems (1) Cellulitis Assessment/Plan: ON PO ABX Code(s): L03.90 - CELLULITIS, UNSPECIFIED Qualifiers: Site of cellulitis: extremity Site of cellulitis of extremity: lower extremity Laterality: left Qualified Code(s): L03.116 - Cellulitis of left lower limb (2) Injury, foot Assessment/Plan: left is is some what cold pulses weak will order arterial doppler Code(s): S99.929A - UNSPECIFIED INJURY OF UNSPECIFIED FOOT, INITIAL ENCOUNTER Qualifiers: Encounter type: initial encounter Laterality: left Qualified Code(s ): S99.922A - Unspecified injury of left foot, initial encounter (3) Rapid atrial fibrillation Assessment/Plan: ON MEDS STABLE Code(s): I48.91 - UNSPECIFIED ATRIAL FIBRILLATION (4) COPD (chronic obstructive pulmonary disease) with emphysema Code(s): J43.9 - EMPHYSEMA, UNSPECIFIED (5) A-fib Code(s): I48.91 - UNSPECIFIED ATRIAL FIBRILLATION Qualifiers: Atrial fibrillation type: chronic Qualified Code(s): I48.2 - Chronic atrial fibrillation Assessment/Plan VASCULAR FOLLOW UP PT NEED ANGIOPLASTY AND STENT D/W DR MONTERO HER LEFT FOOT IS COLDER THAN RIGHT FOOD PT WANTS TO BE DC I DONT THINK PATIENT CAN BE DC AT THIS POINT
[2016-08-21] MEDS ORDERED: METHADONE HCL 40 MG DISPERSABLE TABLET ONE (05:13)
[2016-08-21] MEDS ORDERED: METHADONE HCL 10 MG TABLET ONE (05:13)
[2016-08-21] MEDS ORDERED: METHADONE HCL 5 MG TABLET ONE (05:14)
[2016-08-21] MEDS: CLINDAMYCIN HCL 150 MG CAPSULE (FP) PO SCH ×3 (05:55→17:34)
[2016-08-21] MEDS: GABAPENTIN 300 MG CAPSULE (FP) PO SCH ×3 (05:55→22:16)
[2016-08-21] MEDS: METHADONE 40 MG, METHADONE 20 MG, METHADONE 5 MG PO SCH (05:55)
[2016-08-21] MEDS: AMOX TR/POT CLAV 500MG/125MG TABLETS (FP) PO SCH ×2 (08:00→17:34)
[2016-08-21] MEDS ORDERED: PT OWN MED DRAWER 7, Y5N ONE ×4 (09:17→17:33)
[2016-08-21] MEDS: levETIRAcetam 500 MG TABLET (FP) PO SCH ×2 (09:20→22:16)
[2016-08-21] MEDS: DIGOXIN 0.125 MG TABLET (FP) PO SCH (09:20)
[2016-08-21] MEDS: FUROSEMIDE 40 MG TABLET (FP) PO SCH (09:20)
[2016-08-21] MEDS: RIVAROXABAN 20 MG TABLET PO SCH (09:21)
[2016-08-21] MEDS: BUDESONIDE/FORMETEROL FUMARATE 80/4.5 mcg INHALER IH SCH ×2 (09:22→22:16)
[2016-08-21] MEDS: FLUTICASONE/SALMETEROL 100 MCG/50 MCG DISKUS IH SCH ×2 (09:22→22:15)
[2016-08-21] MEDS: ACLIDINIUM BROMIDE 400 MCG/INH AERO.POWD IH SCH ×2 (09:22→22:16)
--- NOTE | 2016-08-21 10:59 | PN ---
Progress Note (short form) - Note Progress Note: Chief Complaint: foot pain History of Present Illness: no sob or orthopnea--has been sleeping flat in bed at times no palpitations no cp patient endorses + diaphoresis, is agitated +cigs Current Medications Acetaminophen (Tylenol -) 650 mg PO Q6H PRN PRN Reason: FEVER OR PAIN Last Admin: 08/14/16 21:53 Dose: 650 mg Aclidinium [place] (Tudorza -) 1 puff IH BID [facility] Last Admin: 08/21/16 09:22 Dose: 1 puff Amoxicillin/Clavulanate Potassium (Augmentin - 500mg Tablet) 1 tab PO BID@0800, 1730 [facility] Last Admin: 08/21/16 08:00 Dose: 1 tab Budesonide/Formoterol Fumarate (Symbicort 80/4.5mcg -) 2 puff IH BID [facility] Last Admin: 08/21/16 09:22 Dose: 2 inh Clindamycin HCl (Cleocin -) 300 mg PO Q6HPO [facility] Last Admin: 08/21/16 05:55 Dose: 300 mg Digoxin (Lanoxin -) 0.125 mg PO DAILY [facility] Last Admin: 08/21/16 09:20 Dose: 0.125 mg Diltiazem HCl (Cardizem Cd -) 120 mg PO DAILY [facility] Last Admin: 08/21/16 09:20 Dose: 120 mg Furosemide (Lasix -) 40 mg PO DAILY [facility] Last Admin: 08/21/16 09:20 Dose: 40 mg Gabapentin (Neurontin -) 300 mg PO TID [facility] Last Admin: 08/21/16 05:55 Dose: 300 mg Levetiracetam (Keppra -) 500 mg PO BID [facility] Last Admin: 08/21/16 09:20 Dose: 500 mg Methadone HCl 40 mg/ Methadone (HCl 20 mg/ Methadone HCl 5 mg) 65 mg PO DAILY@ 0600 [facility] Last Admin: 08/21/16 05:55 Dose: 65 mg Propranolol HCl (Inderal La -) 120 mg PO DAILY [facility] Last Admin: 08/21/16 09:20 Dose: 120 mg Quetiapine Fumarate (Seroquel -) 25 mg PO DAILY PRN PRN Reason: ANXIETY Last Admin: 08/19/16 21:19 Dose: 25 mg Rivaroxaban (Xarelto -) 20 mg PO DAILY [facility] Last Admin: 08/21/16 09:21 Dose: 20 mg Fluticasone/Salmeterol (Advair 100mcg/50mcg -) 1 puff IH BID [facility] Last Admin: 08/21/16 09:22 Dose: 1 puff Vital Signs - 24 hr 08/20/16 08/20/16 08/20/16 15:14 17:00 21:00 Temperature 99.4 F 98.6 F Pulse Rate 90 123 H Respiratory 20 20 20 Rate Blood Pressure 119/61 103/55 O2 Sat by Pulse 98 Oximetry (%) 08/20/16 08/21/16 08/21/16 22:00 02:14 06:00 Temperature 98.1 F 98.9 F 98.0 F Pulse Rate 98 H 89 89 Respiratory 16 20 16 Rate Blood Pressure 108/56 167/59 128/67 O2 Sat by Pulse Oximetry (%) 08/21/16 08/21/16 09:20 10:00 Temperature 98 F Pulse Rate 114 H 114 H Respiratory 18 Rate Blood Pressure 108/70 O2 Sat by Pulse Oximetry (%) Intake & Output 08/19/16 08/20/16 08/21/16 08/22/16 07:59 07:59 07:59 07:59 Intake Total 360 420 840 Balance 360 420 840 Weight 186 lb 3.2 oz 186 lb 9.6 oz 185 lb 4 oz Constitutional: Yes: No Distress, Calm Eyes: No: Sclera Icterus HENT: No: Nasal Congestion Cardiovascular: Yes: Regular Rate and Rhythm, S1, S2, Other (PMI non diplaced). No: Gallop, Murmur Respiratory: Yes: CTA Bilaterally, Wheezes (couple of scattered wheezes). No: Accessory Muscle Use, Rales Gastrointestinal: Yes: Normal Bowel Sounds, Soft. No: Tenderness Musculoskeletal: Yes: Other (No kyphosis) Extremities: No: Cold Edema: No Integumentary: No: Jaundice Neurological: Yes: Alert, Oriented (x3) Psychiatric: No: Agitated Labs: no CBC, BMP - ....Imaging EKG: Other (tele: AFib with HR 100s-110s) Assessment/Plan MIBI 2012: no ischemia Echo 07/2016: nl lv/rv. 1+ lae, 1+ mr/tr Echo 12/2015: nl LVSF; nl RV; mild MR/TR; RVSP 30-40 CXR here with increased interstitial markings c/w chronic lung disease, but can' t exclude mild congestion. similar to priors. CTA: images/report reviewed. In summary, + atherosclerotic disease, + lt common iliac occlusion with distal reconstitution of flow. stable adenoma. Pulmonary abnormalities noted. mild splenomegaly common bile duct dilation. ekg: afib 125 bpm. lat STD/TWI tele: afib rate controlled until this morning. a/p: 66 yo smoker on methadone maintenance who presents with hx pafib, hx pe on xarelto, copd, htn, anxiety, , lung cancer resected August 2012 at [facility], no h/o of RT or chemo, adenoma, RA, Hep C, thyroid nodules, buergers disaese who p/w left foot pain Pre-op clearance - Currently no active cardiac issues. RCRI of at least 2. Patient with intermediate estimated risk of cardiovascular events. Will hold xarelto and bridge withlovenox atrial fibrillation -pt does not seem to feel her afib as she denies any palpitations here or at home -here with rvr initially. on dilt, dig, inderal as outpatient. initially with low bp's so held inderal but still having rvr at times so will cont dilt and dig but also resumed inderal at 60 mg qd starting 08/16. HR still a little fast at times so increased to home dose inderal 120 qd now. -08/20: HR mildly rapid on tele. 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 on max dose inderal she is likely to tolerate given bronchospasm hx and ongoing mild wheezes -sbp 90s so cannot incr diltiazem further--cont CD 120 qd -on digoxin 0.125--level ordered -would not want to incr digoxin further given risks of D.I. with diltiazem -for now, will cont same meds -pt should have outpt f/u and reassess HR--would rec "lenient rate control strategy" here, and if remains <105-110 HR at rest in office, with no attributable tachy sx's and normal LVEF, not further intensify med regimen -CHADS VASC 2--has been maintained on AC (xarelto at home), with h/o PE noted. -she has had recent frequent seizures and falls with acute and old rib fractures on admission xrays, reports recent ankle injury from fall. -the ? of AC is not just an AF question. with CHADS-VASC of 2 and no prior known cva (and none seen on CT head currently, or on 2016 MRI brain), it is reasonable FROM AN AFIB PERSPECTIVE to consider stopping AC at least until her outpt neuro w/u (sees nadyalaura) is completed and can observe if her sz's and falls can be adequately controlled. risk of cardioembolic CVA is approx 2%/year and it seems that over the next few months her risk of falling and injuring herself is higher than this. HOWEVER it is unknown whether prior PE was provoked or unprovoked, and whether she had hypercoagulable workup done (pmd dr harris). pt had another, recent LLE DVT few mo ago (changed coumadin to xarelto then, ? compliance issue with coumadin f/u and INRs). Therefore, risks of life-threatening PE could potentially be prohibitive here, depending on that info. hence, AC decisions in the long-term need to be made by pt's pmd with appropriate heme input. Therefore, on recent past admit continued AC with close follow up with pmd (and dr hilario disc'd these considerations with both the pt and her outpt PMD dr harris at that time, and pt was to see pmd for further mgmt) - 620: HR increased this morning, but patient also agitated. No change in meds , will observe for improvement once patient is more calm. Hold xarelto and lovenox bridge in anticipation of vascular intervention on . diastolic CHF -currently appears euvolemic would cont same outpatient lasix dosing. lasix 40 mg/day. Lt foot pain, infection/lt common iliac artery occlusion: - management per pmd, ID, vascular. ? embolic or atherosclerotic. - plan for intervention on . holding xarelto with bridging as above. sob, copd, - chronic sob at baseline, stable. per pmd + tob/copd - smoking cessation counseling h/o DVT and PE: -? details of prior events -on xarelto. See discussion above. HTN: -stable, running low. intermittently labile. h/o heroin abuse: -on methadone maintenance
[2016-08-21] MEDS: ACETAMINOPHEN 325 MG TABLET (FP) PO PRN (11:47)
[2016-08-21 12:23] LABS: ANION GAP 9 (8-16); CALCIUM 8.9 mg/dL (8.5-10.1); CO2 28 mmol/L (21-32); CREATININE 1.1 mg/dL (0.55-1.02); GLUCOSE,RANDOM 107 mg/dL (74-106)
--- NOTE | 2016-08-21 17:29 | PN ---
Progress Note, Physician History of Present Illness: stable no complaints plan for angioplasty - Current Medication List Current Medications: Active Medications Acetaminophen (Tylenol -) 650 mg PO Q6H PRN PRN Reason: FEVER OR PAIN Last Admin: 08/21/16 11:47 Dose: 650 mg Aclidinium [place] (Tudorza -) 1 puff IH BID [facility] Last Admin: 08/21/16 09:22 Dose: 1 puff Amoxicillin/Clavulanate Potassium (Augmentin - 500mg Tablet) 1 tab PO BID@0800, 1730 [facility] Last Admin: 08/21/16 08:00 Dose: 1 tab Budesonide/Formoterol Fumarate (Symbicort 80/4.5mcg -) 2 puff IH BID [facility] Last Admin: 08/21/16 09:22 Dose: 2 inh Clindamycin HCl (Cleocin -) 300 mg PO Q6HPO [facility] Last Admin: 08/21/16 12:42 Dose: 300 mg Digoxin (Lanoxin -) 0.125 mg PO DAILY [facility] Last Admin: 08/21/16 09:20 Dose: 0.125 mg Diltiazem HCl (Cardizem Cd -) 120 mg PO DAILY [facility] Last Admin: 08/21/16 09:20 Dose: 120 mg Furosemide (Lasix -) 40 mg PO DAILY [facility] Last Admin: 08/21/16 09:20 Dose: 40 mg Gabapentin (Neurontin -) 300 mg PO TID [facility] Last Admin: 08/21/16 15:09 Dose: 300 mg Levetiracetam (Keppra -) 500 mg PO BID [facility] Last Admin: 08/21/16 09:20 Dose: 500 mg Methadone HCl 40 mg/ Methadone (HCl 20 mg/ Methadone HCl 5 mg) 65 mg PO DAILY@ 0600 [facility] Last Admin: 08/21/16 05:55 Dose: 65 mg Propranolol HCl (Inderal La -) 120 mg PO DAILY [facility] Last Admin: 08/21/16 09:20 Dose: 120 mg Quetiapine Fumarate (Seroquel -) 25 mg PO DAILY PRN PRN Reason: ANXIETY Last Admin: 08/19/16 21:19 Dose: 25 mg Rivaroxaban (Xarelto -) 20 mg PO DAILY [facility] Last Admin: 08/21/16 09:21 Dose: 20 mg Fluticasone/Salmeterol (Advair 100mcg/50mcg -) 1 puff IH BID [facility] Last Admin: 08/21/16 09:22 Dose: 1 puff - Objective Vital Signs: Vital Signs Temperature 98.4 F 08/21/16 14:15 Pulse Rate 81 08/21/16 14:15 Respiratory Rate 20 08/21/16 14:15 Blood Pressure 99/62 08/21/16 14:15 O2 Sat by Pulse Oximetry (%) 96 08/21/16 09:00 Constitutional: Yes: No Distress, Calm Cardiovascular: Yes: S1, S2 Respiratory: Yes: Regular, CTA Bilaterally Gastrointestinal: Yes: Normal Bowel Sounds, Soft Musculoskeletal: Yes: Other Extremities: Yes: Other Neurological: Yes: Alert, Oriented Psychiatric: Yes: Alert, Oriented Labs: CBC, BMP 08/16/16 05:48 08/21/16 11:45 Assessment/Plan - Problems (1) Cellulitis Code(s): L03.90 - CELLULITIS, UNSPECIFIED Qualifiers: Site of cellulitis: extremity Site of cellulitis of extremity: lower extremity Laterality: left Qualified Code(s): L03.116 - Cellulitis of left lower limb (2) Injury, foot Code(s): S99.929A - UNSPECIFIED INJURY OF UNSPECIFIED FOOT, INITIAL ENCOUNTER Qualifiers: Encounter type: initial encounter Laterality: left Qualified Code(s ): S99.922A - Unspecified injury of left foot, initial encounter (3) Rapid atrial fibrillation Code(s): I48.91 - UNSPECIFIED ATRIAL FIBRILLATION (4) COPD (chronic obstructive pulmonary disease) with emphysema Code(s): J43.9 - EMPHYSEMA, UNSPECIFIED (5) A-fib Code(s): I48.91 - UNSPECIFIED ATRIAL FIBRILLATION Qualifiers: Atrial fibrillation type: chronic Qualified Code(s): I48.2 - Chronic atrial fibrillation plan will stop clinda tomorrow continue augmentin can give iv before the procedure rest as per primary
[2016-08-21] MEDS: QUEtiapine FUMARATE 25 MG TABLET (FP) PO SCH (22:16)
[2016-08-21] MEDS: clonazePAM 0.5 MG TABLET PO SCH (22:16)
[2016-08-22] MEDS: CLINDAMYCIN HCL 150 MG CAPSULE (FP) PO SCH ×4 (04:35→13:11)
[2016-08-22] MEDS ORDERED: METHADONE HCL 10 MG TABLET ONE (06:16)
[2016-08-22] MEDS ORDERED: METHADONE HCL 40 MG DISPERSABLE TABLET ONE (06:16)
[2016-08-22] MEDS ORDERED: METHADONE HCL 5 MG TABLET ONE (06:17)
[2016-08-22] MEDS ORDERED: PT OWN MED DRAWER 7, Y5N ONE ×2 (06:17→09:16)
[2016-08-22] MEDS: GABAPENTIN 300 MG CAPSULE (FP) PO SCH ×3 (06:30→21:55)
[2016-08-22] MEDS: METHADONE 40 MG, METHADONE 20 MG, METHADONE 5 MG PO SCH (06:32)
[2016-08-22] MEDS: ACLIDINIUM BROMIDE 400 MCG/INH AERO.POWD IH SCH ×2 (09:12→21:56)
[2016-08-22] MEDS: BUDESONIDE/FORMETEROL FUMARATE 80/4.5 mcg INHALER IH SCH ×2 (09:12→21:57)
[2016-08-22] MEDS: FLUTICASONE/SALMETEROL 100 MCG/50 MCG DISKUS IH SCH ×2 (09:12→21:56)
[2016-08-22] MEDS: ENOXAPARIN NA (PORCINE) 80 MG/0.8 ML DISP.SYRIN SQ SCH ×2 (09:13→21:54)
[2016-08-22] MEDS: AMOX TR/POT CLAV 500MG/125MG TABLETS (FP) PO SCH ×2 (09:13→16:40)
[2016-08-22] MEDS: clonazePAM 0.5 MG TABLET PO SCH ×2 (09:13→21:55)
[2016-08-22] MEDS: LIDOCAINE 5% TOPICAL PATCH TP SCH (09:13)
[2016-08-22] MEDS: FUROSEMIDE 40 MG TABLET (FP) PO SCH (09:13)
[2016-08-22] MEDS: levETIRAcetam 500 MG TABLET (FP) PO SCH ×2 (09:14→21:55)
[2016-08-22] MEDS: DIGOXIN 0.125 MG TABLET (FP) PO SCH (09:14)
--- NOTE | 2016-08-22 11:02 | PN ---
Progress Note (short form) - Note Progress Note: s: no cp sob palps dizzy o: Vital Signs Period Temp Pulse Resp BP Sys/Smyth Pulse Ox Last 24 Hr 97.5 F-99.2 F 81-111 20-20 91-110/54-66 96-97 nad, no jvd irreg, tachy, s1s2 no mrg cta bl nl eff aaox3 no le e/c/c abd nt nd pos bs no jaundice diaphoresis Current Medications Generic Name Dose Route Start Last Admin Trade Name Freq PRN Reason Stop Dose Admin Acetaminophen 650 mg 08/13/16 21:31 08/21/16 11:47 Tylenol - PO 650 mg Q6H PRN Administration FEVER OR PAIN Aclidinium [place] 1 puff 08/14/16 10:45 08/22/16 09:12 Tudorza - IH 1 puff BID [facility]E Administration Amoxicillin/Clavulanate Potassium 1 tab 08/17/16 17:30 08/22/16 09:13 Augmentin - 500mg Tablet PO 1 tab BID@0800,1730 [facility] Administration Budesonide/Formoterol Fumarate 2 puff 08/14/16 22:00 08/22/16 09:12 Symbicort 80/4.5mcg - IH 2 inh BID [facility]E Administration Clindamycin HCl 300 mg 08/15/16 18:00 08/22/16 06:30 Cleocin - PO 300 mg Q6HPO [facility]E Administration Clonazepam 1 mg 08/21/16 22:00 08/22/16 09:13 Klonopin - PO 1 mg BID [facility] Administration Digoxin 0.125 mg 08/14/16 10:00 08/22/16 09:14 Lanoxin - PO 0.125 mg DAILY [facility] Administration Diltiazem HCl 120 mg 08/17/16 10:00 08/22/16 09:14 Cardizem Cd - PO 120 mg DAILY [facility] Administration Enoxaparin Sodium 80 mg 08/22/16 10:00 08/22/16 09:13 Lovenox - SQ 80 mg BID [facility] Administration Furosemide 40 mg 08/15/16 10:00 08/22/16 09:13 Lasix - PO 40 mg DAILY [facility] Administration Gabapentin 300 mg 08/14/16 22:00 08/22/16 06:30 Neurontin - PO 300 mg TID [facility] Administration Levetiracetam 500 mg 08/13/16 22:00 08/22/16 09:14 Keppra - PO 500 mg BID [facility] Administration Lidocaine 1 patch 08/22/16 10:00 08/22/16 09:13 Lidoderm Patch - TP 1 patch DAILY [facility] Administration Miscellaneous 1 each 08/22/16 22:00 Lidoderm Patch Removal MC DAILY@2200 [facility] Propranolol HCl 120 mg 08/19/16 11:12 08/22/16 09:17 Inderal La - PO 120 mg DAILY [facility] Administration Quetiapine Fumarate 25 mg 08/21/16 18:18 08/21/16 22:16 Seroquel - PO 25 mg HS [facility] Administration Fluticasone/Salmeterol 1 puff 08/14/16 10:15 08/22/16 09:12 Advair 100mcg/50mcg - IH 1 puff BID [facility] Administration CBC, BMP 08/16/16 05:48 08/21/16 11:45 mibi 2012: no ischemia Echo 07/2016: nl lv/rv. 1+ lae, 1+ mr/tr Echo 12/2015: nl LVSF; nl RV; mild MR/TR; RVSP 30-40 CXR here with increased interstitial markings c/w chronic lung disease, but can' t exclude mild congestion. similar to priors. ekg: afib 125 bpm. lat STD/TWI tele: afib rate <110 at rest a/p: 66 yo smoker on methadone maintenance who presents with hx pafib, hx pe on xarelto, copd, htn, anxiety, , lung cancer resected August 2012 at [facility], no h/o of RT or chemo, adenoma, RA, Hep C, thyroid nodules, buergers disaese who p/w left foot pain Pre-op clearance for le angiogram/stenting: - Currently no unstable cardiac issues. Patient with intermediate estimated risk of cardiovascular events. Will hold xarelto and bridge with lovenox. atrial fibrillation -pt does not seem to feel her afib as she denies any palpitations here or at home -here with rvr initially. on dilt, dig, inderal as outpatient. initially with low bp's so held inderal but still having rvr at times so will cont dilt and dig but also resumed inderal at 60 mg qd starting 08/16. HR still a little fast at times so increased to home dose inderal 120 qd now. -08/20: HR mildly rapid on tele. 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 on max dose inderal she is likely to tolerate given bronchospasm hx and ongoing mild wheezes -sbp 90s so cannot incr diltiazem further--cont CD 120 qd -on digoxin 0.125 -would not want to incr digoxin further given risks of D.I. with diltiazem -for now, will cont same meds -pt should have outpt f/u and reassess HR--would rec "lenient rate control strategy" here, and if remains <110 HR at rest in office, with no attributable tachy sx's and normal LVEF, not further intensify med regimen -CHADS VASC 2--has been maintained on AC (xarelto at home), with h/o PE noted. -she has had recent frequent seizures and falls with acute and old rib fractures on admission xrays, reports recent ankle injury from fall. -the ? of AC is not just an AF question. with CHADS-VASC of 2 and no prior known cva (and none seen on CT head currently, or on 2016 MRI brain), it is reasonable FROM AN AFIB PERSPECTIVE to consider stopping AC at least until her outpt neuro w/u (seealvarez watkins) is completed and can observe if her sz's and falls can be adequately controlled. risk of cardioembolic CVA is approx 2%/year and it seems that over the next few months her risk of falling and injuring herself is higher than this. HOWEVER it is unknown whether prior PE was provoked or unprovoked, and whether she had hypercoagulable workup done (pmd dr harris). pt had another, recent LLE DVT few mo ago (changed coumadin to xarelto then, ? compliance issue with coumadin f/u and INRs). Therefore, risks of life-threatening PE could potentially be prohibitive here, depending on that info. hence, AC decisions in the long-term need to be made by pt's pmd with appropriate heme input. Therefore, on recent past admit continued AC with close follow up with pmd (and dr hilario disc'd these considerations with both the pt and her outpt PMD dr harris at that time, and pt was to see pmd for further mgmt) -currently holding xarelto and giving lovenox bridge in anticipation of vascular intervention on . diastolic CHF -currently appears euvolemic would cont same outpatient lasix dosing. lasix 40 mg/day. Lt foot pain, infection/lt common iliac artery occlusion: - management per pmd, ID, vascular. ? embolic or atherosclerotic. - plan for intervention on . holding xarelto with bridging as above. sob, copd, - chronic sob at baseline, stable. per pmd + tob/copd - smoking cessation counseling h/o DVT and PE: -? details of prior events -on AC. See discussion above. HTN: -stable, running low h/o heroin abuse: -on methadone maintenance
--- NOTE | 2016-08-22 11:16 | PN ---
Progress Note (short form) - Note Progress Note: Vascular Surgery Pt seen and examined. 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
--- NOTE | 2016-08-22 17:11 | PN ---
Progress Note, Physician History of Present Illness: stable awaiting for angio and stent - Current Medication List Current Medications: Active Medications Acetaminophen (Tylenol -) 650 mg PO Q6H PRN PRN Reason: FEVER OR PAIN Last Admin: 08/21/16 11:47 Dose: 650 mg Aclidinium [place] (Tudorza -) 1 puff IH BID [facility] Last Admin: 08/22/16 09:12 Dose: 1 puff Amoxicillin/Clavulanate Potassium (Augmentin - 500mg Tablet) 1 tab PO BID@0800, 1730 [facility] Last Admin: 08/22/16 16:40 Dose: Not Given Budesonide/Formoterol Fumarate (Symbicort 80/4.5mcg -) 2 puff IH BID [facility] Last Admin: 08/22/16 09:12 Dose: 2 inh Clonazepam (Klonopin -) 1 mg PO BID [facility] Last Admin: 08/22/16 09:13 Dose: 1 mg Digoxin (Lanoxin -) 0.125 mg PO DAILY [facility] Last Admin: 08/22/16 09:14 Dose: 0.125 mg Diltiazem HCl (Cardizem Cd -) 120 mg PO DAILY [facility] Last Admin: 08/22/16 09:14 Dose: 120 mg Enoxaparin Sodium (Lovenox -) 80 mg SQ BID [facility] Last Admin: 08/22/16 09:13 Dose: 80 mg Furosemide (Lasix -) 40 mg PO DAILY [facility] Last Admin: 08/22/16 09:13 Dose: 40 mg Gabapentin (Neurontin -) 300 mg PO TID [facility] Last Admin: 08/22/16 13:10 Dose: 300 mg Levetiracetam (Keppra -) 500 mg PO BID [facility] Last Admin: 08/22/16 09:14 Dose: 500 mg Lidocaine (Lidoderm Patch -) 1 patch TP DAILY [facility] Last Admin: 08/22/16 09:13 Dose: 1 patch Miscellaneous (Lidoderm Patch Removal) 1 each MC DAILY@2200 [facility] Propranolol HCl (Inderal La -) 120 mg PO DAILY [facility] Last Admin: 08/22/16 09:17 Dose: 120 mg Quetiapine Fumarate (Seroquel -) 25 mg PO HS [facility] Last Admin: 08/21/16 22:16 Dose: 25 mg Fluticasone/Salmeterol (Advair 100mcg/50mcg -) 1 puff IH BID [facility] Last Admin: 08/22/16 09:12 Dose: 1 puff - Objective Vital Signs: Vital Signs Temperature 97.8 F 08/22/16 10:00 Pulse Rate 111 H 08/22/16 10:00 Respiratory Rate 20 08/22/16 10:00 Blood Pressure 108/66 08/22/16 10:00 O2 Sat by Pulse Oximetry (%) 97 08/22/16 09:00 Constitutional: Yes: No Distress, Calm Cardiovascular: Yes: S1, S2 Respiratory: Yes: Regular, CTA Bilaterally Gastrointestinal: Yes: Normal Bowel Sounds, Soft Musculoskeletal: Yes: WNL Extremities: Yes: Other Neurological: Yes: Alert, Oriented Psychiatric: Yes: Alert Labs: CBC, BMP 08/16/16 05:48 08/21/16 11:45 Assessment/Plan - Problems (1) Cellulitis Code(s): L03.90 - CELLULITIS, UNSPECIFIED Qualifiers: Site of cellulitis: extremity Site of cellulitis of extremity: lower extremity Laterality: left Qualified Code(s): L03.116 - Cellulitis of left lower limb (2) Injury, foot Code(s): S99.929A - UNSPECIFIED INJURY OF UNSPECIFIED FOOT, INITIAL ENCOUNTER Qualifiers: Encounter type: initial encounter Laterality: left Qualified Code(s ): S99.922A - Unspecified injury of left foot, initial encounter (3) Rapid atrial fibrillation Code(s): I48.91 - UNSPECIFIED ATRIAL FIBRILLATION (4) COPD (chronic obstructive pulmonary disease) with emphysema Code(s): J43.9 - EMPHYSEMA, UNSPECIFIED (5) A-fib Code(s): I48.91 - UNSPECIFIED ATRIAL FIBRILLATION Qualifiers: Atrial fibrillation type: chronic Qualified Code(s): I48.2 - Chronic atrial fibrillation plan continue current mgmt all cx results noted patient for angioplasty tomorrow rest as per primary
[2016-08-22] MEDS: QUEtiapine FUMARATE 25 MG TABLET (FP) PO SCH (21:55)
[2016-08-22] MEDS ORDERED: LIDOCAINE PATCH REMOVAL MC SCH (22:00)
--- NOTE | 2016-08-22 23:13 | PN ---
Progress Note, Physician History of Present Illness: Covering for Dr Stephens - Current Medication List Current Medications: Active Medications Acetaminophen (Tylenol -) 650 mg PO Q6H PRN PRN Reason: FEVER OR PAIN Last Admin: 08/21/16 11:47 Dose: 650 mg Aclidinium [place] (Tudorza -) 1 puff IH BID [facility] Last Admin: 08/22/16 21:56 Dose: 1 puff Amoxicillin/Clavulanate Potassium (Augmentin - 500mg Tablet) 1 tab PO BID@0800, 1730 [facility] Last Admin: 08/22/16 16:40 Dose: Not Given Budesonide/Formoterol Fumarate (Symbicort 80/4.5mcg -) 2 puff IH BID [facility] Last Admin: 08/22/16 21:57 Dose: 2 inh Clonazepam (Klonopin -) 1 mg PO BID [facility] Last Admin: 08/22/16 21:55 Dose: 1 mg Digoxin (Lanoxin -) 0.125 mg PO DAILY [facility] Last Admin: 08/22/16 09:14 Dose: 0.125 mg Diltiazem HCl (Cardizem Cd -) 120 mg PO DAILY [facility] Last Admin: 08/22/16 09:14 Dose: 120 mg Enoxaparin Sodium (Lovenox -) 80 mg SQ BID [facility] Last Admin: 08/22/16 21:54 Dose: 80 mg Furosemide (Lasix -) 40 mg PO DAILY [facility] Last Admin: 08/22/16 09:13 Dose: 40 mg Gabapentin (Neurontin -) 300 mg PO TID [facility] Last Admin: 08/22/16 21:55 Dose: 300 mg Levetiracetam (Keppra -) 500 mg PO BID [facility] Last Admin: 08/22/16 21:55 Dose: 500 mg Lidocaine (Lidoderm Patch -) 1 patch TP DAILY [facility] Last Admin: 08/22/16 09:13 Dose: 1 patch Miscellaneous (Lidoderm Patch Removal) 1 each MC DAILY@2200 [facility] Last Admin: 08/22/16 22:00 Dose: 1 each Propranolol HCl (Inderal La -) 120 mg PO DAILY [facility] Last Admin: 08/22/16 09:17 Dose: 120 mg Quetiapine Fumarate (Seroquel -) 25 mg PO HS [facility] Last Admin: 08/22/16 21:55 Dose: 25 mg Fluticasone/Salmeterol (Advair 100mcg/50mcg -) 1 puff IH BID [facility] Last Admin: 08/22/16 21:56 Dose: 1 puff - Objective Vital Signs: Vital Signs Temperature 99.1 F 08/22/16 17:00 Pulse Rate 104 H 08/22/16 17:00 Respiratory Rate 20 08/22/16 17:00 Blood Pressure 101/60 08/22/16 17:00 O2 Sat by Pulse Oximetry (%) 97 08/22/16 09:00 Constitutional: Yes: Well Nourished Eyes: Yes: WNL HENT: Yes: WNL Neck: Yes: WNL, Supple Cardiovascular: Yes: WNL, Regular Rate and Rhythm Respiratory: Yes: WNL, Regular, CTA Bilaterally Gastrointestinal: Yes: WNL, Normal Bowel Sounds, Soft, Abdomen, Obese Labs: CBC, BMP 08/16/16 05:48 08/21/16 11:45 Problem List - Problems (1) Cellulitis Assessment/Plan: Cont augmentin Pt for angioplasty/stent for lt common iliac artery occlusion Code(s): L03.90 - CELLULITIS, UNSPECIFIED Qualifiers: Site of cellulitis: extremity Site of cellulitis of extremity: lower extremity Laterality: left Qualified Code(s): L03.116 - Cellulitis of left lower limb (2) A-fib Code(s): I48.91 - UNSPECIFIED ATRIAL FIBRILLATION Qualifiers: Atrial fibrillation type: chronic Qualified Code(s): I48.2 - Chronic atrial fibrillation (3) COPD (chronic obstructive pulmonary disease) with emphysema Code(s): J43.9 - EMPHYSEMA, UNSPECIFIED (4) Anxiety Code(s): F41.9 - ANXIETY DISORDER, UNSPECIFIED (5) Hypertension Code(s): I10 - ESSENTIAL (PRIMARY) HYPERTENSION
[2016-08-23] MEDS: GABAPENTIN 300 MG CAPSULE (FP) PO SCH ×3 (07:31→21:11)
[2016-08-23] MEDS ORDERED: METHADONE HCL 40 MG DISPERSABLE TABLET ONE (07:54)
[2016-08-23] MEDS ORDERED: METHADONE HCL 10 MG TABLET ONE (07:54)
[2016-08-23] MEDS ORDERED: METHADONE HCL 5 MG TABLET ONE (07:54)
[2016-08-23] MEDS: AMOX TR/POT CLAV 500MG/125MG TABLETS (FP) PO SCH ×2 (07:59→16:38)
[2016-08-23] MEDS ORDERED: METHADONE 40 MG, METHADONE 20 MG, METHADONE 5 MG PO SCH (08:00)
[2016-08-23] MEDS ORDERED: LIDOCAINE HCL 1%, 10 MG/ML (20ML VIAL) ONE (08:15)
[2016-08-23] MEDS ORDERED: HEPARIN NA (PORCINE) 5,000 UNITS/ML 1ML VIAL ONE (08:15)
[2016-08-23] MEDS: FLUTICASONE/SALMETEROL 100 MCG/50 MCG DISKUS IH SCH (08:59)
[2016-08-23] MEDS: levETIRAcetam 500 MG TABLET (FP) PO SCH ×2 (08:59→21:11)
[2016-08-23] MEDS: clonazePAM 0.5 MG TABLET PO SCH ×3 (09:00→21:12)
[2016-08-23] MEDS: LIDOCAINE 5% TOPICAL PATCH TP SCH (09:00)
[2016-08-23] MEDS: DIGOXIN 0.125 MG TABLET (FP) PO SCH (09:00)
[2016-08-23] MEDS: BUDESONIDE/FORMETEROL FUMARATE 80/4.5 mcg INHALER IH SCH ×2 (09:00→21:15)
[2016-08-23] MEDS: FUROSEMIDE 40 MG TABLET (FP) PO SCH (09:00)
[2016-08-23] MEDS: ENOXAPARIN NA (PORCINE) 80 MG/0.8 ML DISP.SYRIN SQ SCH ×2 (09:00→21:11)
[2016-08-23] MEDS: ACLIDINIUM BROMIDE 400 MCG/INH AERO.POWD IH SCH ×2 (09:00→21:15)
--- NOTE | 2016-08-23 10:17 | PN ---
Progress Note (short form) - Note Progress Note: s: no cp sob palps dizzy o: Vital Signs Period Temp Pulse Resp BP Sys/Smyth Pulse Ox Last 24 Hr 97.4 F-99.1 F 86-108 20-20 94-119/60-77 97-97 nad, no jvd irreg, tachy, s1s2 no mrg cta bl nl eff aaox3 no le e/c/c abd nt nd pos bs no jaundice diaphoresis Current Medications Generic Name Dose Route Start Last Admin Trade Name Freq PRN Reason Stop Dose Admin Acetaminophen 650 mg 08/13/16 21:31 08/21/16 11:47 Tylenol - PO 650 mg Q6H PRN Administration FEVER OR PAIN Aclidinium [place] 1 puff 08/14/16 10:45 08/23/16 09:00 Tudorza - IH Not Given BID [facility] Amoxicillin/Clavulanate Potassium 1 tab 08/17/16 17:30 08/23/16 07:59 Augmentin - 500mg Tablet PO Not Given BID@0800,1730 [facility] Budesonide/Formoterol Fumarate 2 puff 08/14/16 22:00 08/23/16 09:00 Symbicort 80/4.5mcg - IH Not Given BID [facility] Clonazepam 1 mg 08/21/16 22:00 08/23/16 09:00 Klonopin - PO Not Given BID [facility] Digoxin 0.125 mg 08/14/16 10:00 08/23/16 09:00 Lanoxin - PO Not Given DAILY [facility] Diltiazem HCl 120 mg 08/17/16 10:00 08/23/16 08:59 Cardizem Cd - PO Not Given DAILY [facility] Enoxaparin Sodium 80 mg 08/22/16 10:00 08/23/16 09:00 Lovenox - SQ Not Given BID [facility] Furosemide 40 mg 08/15/16 10:00 08/23/16 09:00 Lasix - PO Not Given DAILY [facility] Gabapentin 300 mg 08/14/16 22:00 08/23/16 07:31 Neurontin - PO Not Given TID [facility] Levetiracetam 500 mg 08/13/16 22:00 08/23/16 08:59 Keppra - PO Not Given BID [facility] Lidocaine 1 patch 08/22/16 10:00 06/22/17 09:00 Lidoderm Patch - TP Not Given DAILY [facility] Methadone HCl 40 mg/ Methadone 65 mg 08/23/16 08:00 08/23/16 07:56 HCl 20 mg/ Methadone HCl 5 mg PO 65 mg DAILY@0600 [facility] Administration Miscellaneous 1 each 08/22/16 22:00 08/22/16 22:00 Lidoderm Patch Removal MC 1 each DAILY@2200 [facility] Administration Propranolol HCl 120 mg 08/19/16 11:12 08/23/16 08:59 Inderal La - PO Not Given DAILY [facility] Quetiapine Fumarate 25 mg 08/21/16 18:18 08/22/16 21:55 Seroquel - PO 25 mg HS [facility] Administration Fluticasone/Salmeterol 1 puff 08/14/16 10:15 08/23/16 08:59 Advair 100mcg/50mcg - IH Not Given BID [facility] CBC, BMP 08/16/16 05:48 08/21/16 11:45 mibi 2012: no ischemia Echo 07/2016: nl lv/rv. 1+ lae, 1+ mr/tr Echo 12/2015: nl LVSF; nl RV; mild MR/TR; RVSP 30-40 CXR here with increased interstitial markings c/w chronic lung disease, but can' t exclude mild congestion. similar to priors. ekg: afib 125 bpm. lat STD/TWI tele: afib rate 90s a/p: 66 yo smoker on methadone maintenance who presents with hx pafib, hx pe on xarelto, copd, htn, anxiety, , lung cancer resected August 2012 at [facility], no h/o of RT or chemo, adenoma, RA, Hep C, thyroid nodules, buergers disaese who p/w left foot pain Pre-op clearance for le angiogram/stenting: - Currently no unstable cardiac issues. Patient with intermediate estimated risk of cardiovascular events. Will hold xarelto and bridge with lovenox. atrial fibrillation -pt does not seem to feel her afib as she denies any palpitations here or at home -rate acceptable, cont same meds -pt should have outpt f/u and reassess HR--would rec "lenient rate control strategy" here, and if remains <110 HR at rest in office, with no attributable tachy sx's and normal LVEF, not further intensify med regimen -CHADS VASC 2--has been maintained on AC (xarelto at home), with h/o PE noted. -she has had recent frequent seizures and falls with acute and old rib fractures on admission xrays, reports recent ankle injury from fall. -the ? of AC is not just an AF question. with CHADS-VASC of 2 and no prior known cva (and none seen on CT head currently, or on 2016 MRI brain), it is reasonable FROM AN AFIB PERSPECTIVE to consider stopping AC at least until her outpt neuro w/u (seealvarez watkins) is completed and can observe if her sz's and falls can be adequately controlled. risk of cardioembolic CVA is approx 2%/year and it seems that over the next few months her risk of falling and injuring herself is higher than this. HOWEVER it is unknown whether prior PE was provoked or unprovoked, and whether she had hypercoagulable workup done (pmd dr harris). pt had another, recent LLE DVT few mo ago (changed coumadin to xarelto then, ? compliance issue with coumadin f/u and INRs). Therefore, risks of life-threatening PE could potentially be prohibitive here, depending on that info. hence, AC decisions in the long-term need to be made by pt's pmd with appropriate heme input. Therefore, on recent past admit continued AC with close follow up with pmd (and dr hilario disc'd these considerations with both the pt and her outpt PMD dr harris at that time, and pt was to see pmd for further mgmt) -currently holding xarelto and giving lovenox bridge in anticipation of vascular intervention today diastolic CHF -currently appears euvolemic would cont same outpatient lasix dosing. lasix 40 mg/day. Lt foot pain, infection/lt common iliac artery occlusion: - management per pmd, ID, vascular. ? embolic or atherosclerotic. - plan for intervention today. holding xarelto with bridging as above. sob, copd, - chronic sob at baseline, stable. per pmd + tob/copd - smoking cessation counseling h/o DVT and PE: -? details of prior events -on AC. See discussion above. HTN: -stable, running low h/o heroin abuse: -on methadone maintenance
[2016-08-23] MEDS ORDERED: MIDAZOLAM HCL 2 MG/2 ML SINGLE DOSE VIAL ONE (12:34)
[2016-08-23] MEDS ORDERED: LIDOCAINE HCL 2% (20ML MULTI-DOSE VIAL) NR ONE (12:34)
[2016-08-23] MEDS ORDERED: PROPOFOL 20 ML ONE ×2 (12:34)
[2016-08-23] MEDS ORDERED: ceFAZolin SODIUM 1 GM VIAL ONE (12:59)
[2016-08-23] MEDS ORDERED: ceFAZolin SODIUM 1 GM VIAL IVPB ONE (13:04)
[2016-08-23] MEDS ORDERED: LIDOCAINE HCL 1%, 10 MG/ML (20ML VIAL) IJ ONE ×3 (13:09)
[2016-08-23] MEDS ORDERED: HYDROmorphone HCL CARPU-JECT 1 MG/1 ML DISP.SYRIN IVPUSH PRN ×2 (13:53→14:14)
[2016-08-23] MEDS ORDERED: ONDANSETRON 4 MG/2 ML VIAL IVPUSH PRN ×2 (13:53→14:14)
--- NOTE | 2016-08-23 13:57 | PN ---
Progress Note (short form) - Note Progress Note: Vascular Surgery S/P left iliac artery angiogram,angioplasty with stent placement. Good femoral pulse. Dopplerable DP and PT pulse. Can start Xarelto tristin and pt can be DC home. Follow up in office in one week. Please make appt upon DC -- [phone] Nilay Paniagua DO
[2016-08-23] MEDS ORDERED: SODIUM CHLORIDE 1,000 ML IV SCH (14:00)
--- NOTE | 2016-08-23 14:00 | OP ---
Operative Note - Note: Operative Date: 08/23/16 Pre-Operative Diagnosis: Left iliac artery occlusion Operation: Left iliac artery angiogram, angioplasty with stent placement Post-Operative Diagnosis: Same as Pre-op Surgeon: Nilay Paniagua Anesthesia: Fractional Estimated Blood Loss (mls): 20 Operative Report Dictated: Yes
[2016-08-23] MEDS ORDERED: ACETAMINOPHEN 325 MG TABLET (FP) PO PRN (14:14)
[2016-08-23] MEDS: SODIUM CHLORIDE 1,000 ML IV SCH (14:43)
--- NOTE | 2016-08-23 15:49 | PN ---
Progress Note, Physician History of Present Illness: patient post op upset that she did not have food when she came back walking - Current Medication List Current Medications: Active Medications Acetaminophen (Tylenol -) 650 mg PO Q6H PRN PRN Reason: FEVER OR PAIN Aclidinium [place] (Tudorza -) 1 puff IH BID [facility] Amoxicillin/Clavulanate Potassium (Augmentin - 500mg Tablet) 1 tab PO BID@0800, 1730 [facility] Budesonide/Formoterol Fumarate (Symbicort 80/4.5mcg -) 2 puff IH BID [facility] Clonazepam (Klonopin -) 1 mg PO BID [facility] Digoxin (Lanoxin -) 0.125 mg PO DAILY [facility] Diltiazem HCl (Cardizem Cd -) 120 mg PO DAILY [facility] Enoxaparin Sodium (Lovenox -) 80 mg SQ BID [facility] Furosemide (Lasix -) 40 mg PO DAILY [facility] Gabapentin (Neurontin -) 300 mg PO TID [facility] Hydromorphone HCl (Dilaudid Injection -) 1 mg IVPUSH [id number] PRN PRN Reason: PAIN Stop: 08/26/16 13:54 Sodium Chloride (Normal Saline -) 1,000 mls @ 83 mls/hr IV ASDIR [facility] Last Admin: 08/23/16 14:43 Dose: 0 mls Levetiracetam (Keppra -) 500 mg PO BID [facility] Lidocaine (Lidoderm Patch -) 1 patch TP DAILY [facility] Methadone HCl 40 mg/ Methadone (HCl 20 mg/ Methadone HCl 5 mg) 65 mg PO DAILY@ 0600 [facility] Miscellaneous (Lidoderm Patch Removal) 1 each MC DAILY@2200 [facility] Ondansetron HCl (Zofran Injection) 4 mg IVPUSH Q6H PRN PRN Reason: NAUSEA AND/OR VOMITING Stop: 08/23/16 19:54 Propranolol HCl (Inderal La -) 120 mg PO DAILY [facility] Quetiapine Fumarate (Seroquel -) 25 mg PO [facility] - Objective Vital Signs: Vital Signs Temperature 98.2 F 08/23/16 14:42 Pulse Rate 110 H 08/23/16 14:42 Respiratory Rate 16 08/23/16 14:42 Blood Pressure 101/56 08/23/16 14:42 O2 Sat by Pulse Oximetry (%) 100 08/23/16 14:30 Constitutional: Yes: No Distress, Calm Cardiovascular: Yes: S1, S2 Respiratory: Yes: Regular, CTA Bilaterally Gastrointestinal: Yes: Normal Bowel Sounds, Soft Extremities: Yes: Other Neurological: Yes: Alert, Oriented Labs: CBC, BMP 08/16/16 05:48 08/21/16 11:45 Assessment/Plan - Problems ( Problems (1) Cellulitis Code(s): L03.90 - CELLULITIS, UNSPECIFIED Qualifiers: Site of cellulitis: extremity Site of cellulitis of extremity: lower extremity Laterality: left Qualified Code(s): L03.116 - Cellulitis of left lower limb (2) Injury, foot Code(s): S99.929A - UNSPECIFIED INJURY OF UNSPECIFIED FOOT, INITIAL ENCOUNTER Qualifiers: Encounter type: initial encounter Laterality: left Qualified Code(s ): S99.922A - Unspecified injury of left foot, initial encounter (3) Rapid atrial fibrillation Code(s): I48.91 - UNSPECIFIED ATRIAL FIBRILLATION (4) COPD (chronic obstructive pulmonary disease) with emphysema Code(s): J43.9 - EMPHYSEMA, UNSPECIFIED (5) A-fib Code(s): I48.91 - UNSPECIFIED ATRIAL FIBRILLATION Qualifiers: Atrial fibrillation type: chronic Qualified Code(s): I48.2 - Chronic atrial fibrillation plan continue current mgmt post op from angioplasty continue current mgmt rest as per primary
[2016-08-23] MEDS ORDERED: clonazePAM 0.5 MG TABLET PO ONE (17:15)
[2016-08-23] MEDS: QUEtiapine FUMARATE 25 MG TABLET (FP) PO SCH (21:12)
[2016-08-23] MEDS: LIDOCAINE PATCH REMOVAL MC SCH (21:18)
[2016-08-23] MEDS ORDERED: FLUTICASONE/SALMETEROL 100 MCG/50 MCG DISKUS IH SCH ×2 (22:00)
[2016-08-23] MEDS ORDERED: LIDOCAINE PATCH REMOVAL MC SCH (22:00)
[2016-08-23] MEDS ORDERED: BUDESONIDE/FORMETEROL FUMARATE 80/4.5 mcg INHALER IH SCH (22:00)
--- NOTE | 2016-08-24 00:31 | PN ---
Progress Note, Physician History of Present Illness: Covering for Dr Stephens Pt seen and examined on 08/23/16 however note is being entered now - Current Medication List Current Medications: Active Medications Acetaminophen (Tylenol -) 650 mg PO Q6H PRN PRN Reason: FEVER OR PAIN Aclidinium [place] (Tudorza -) 1 puff IH BID [facility] Last Admin: 08/23/16 21:15 Dose: 1 puff Amoxicillin/Clavulanate Potassium (Augmentin - 500mg Tablet) 1 tab PO BID@0800, 1730 [facility] Last Admin: 08/23/16 16:38 Dose: Not Given Budesonide/Formoterol Fumarate (Symbicort 80/4.5mcg -) 2 puff IH BID [facility] Last Admin: 08/23/16 21:15 Dose: 2 puff Clonazepam (Klonopin -) 1 mg PO BID [facility] Last Admin: 08/23/16 21:12 Dose: 1 mg Digoxin (Lanoxin -) 0.125 mg PO DAILY [facility] Diltiazem HCl (Cardizem Cd -) 120 mg PO DAILY [facility] Last Admin: 08/23/16 20:31 Dose: 120 mg Enoxaparin Sodium (Lovenox -) 80 mg SQ BID [facility] Last Admin: 08/23/16 21:11 Dose: 80 mg Furosemide (Lasix -) 40 mg PO DAILY [facility] Gabapentin (Neurontin -) 300 mg PO TID [facility] Last Admin: 08/23/16 21:11 Dose: 300 mg Hydromorphone HCl (Dilaudid Injection -) 1 mg IVPUSH [id number] PRN PRN Reason: PAIN Stop: 08/26/16 13:54 Sodium Chloride (Normal Saline -) 1,000 mls @ 83 mls/hr IV ASDIR [facility] Last Admin: 08/23/16 14:43 Dose: 0 mls Levetiracetam (Keppra -) 500 mg PO BID [facility] Last Admin: 08/23/16 21:11 Dose: 500 mg Lidocaine (Lidoderm Patch -) 1 patch TP DAILY [facility] Methadone HCl 40 mg/ Methadone (HCl 20 mg/ Methadone HCl 5 mg) 65 mg PO DAILY@ 0600 [facility] Miscellaneous (Lidoderm Patch Removal) 1 each MC DAILY@2200 [facility] Last Admin: 08/23/16 21:18 Dose: Not Given Propranolol HCl (Inderal La -) 120 mg PO DAILY [facility] Quetiapine Fumarate (Seroquel -) 25 mg PO HS [facility] Last Admin: 08/23/16 21:12 Dose: 25 mg - Objective Vital Signs: Vital Signs Temperature 98.8 F 08/23/16 22:00 Pulse Rate 135 H 08/23/16 22:00 Respiratory Rate 20 08/23/16 22:00 Blood Pressure 127/81 08/23/16 22:00 O2 Sat by Pulse Oximetry (%) 96 08/23/16 21:00 Labs: CBC, BMP 08/16/16 05:48 08/21/16 11:45 Problem List - Problems (1) Cellulitis Code(s): L03.90 - CELLULITIS, UNSPECIFIED Qualifiers: Site of cellulitis: extremity Site of cellulitis of extremity: lower extremity Laterality: left Qualified Code(s): L03.116 - Cellulitis of left lower limb (2) A-fib Code(s): I48.91 - UNSPECIFIED ATRIAL FIBRILLATION Qualifiers: Atrial fibrillation type: chronic Qualified Code(s): I48.2 - Chronic atrial fibrillation (3) COPD (chronic obstructive pulmonary disease) with emphysema Code(s): J43.9 - EMPHYSEMA, UNSPECIFIED (4) Anxiety Code(s): F41.9 - ANXIETY DISORDER, UNSPECIFIED (5) Hypertension Code(s): I10 - ESSENTIAL (PRIMARY) HYPERTENSION
[2016-08-24] MEDS ORDERED: clonazePAM 0.5 MG TABLET PO ONE ×2 (06:24→18:15)
[2016-08-24] MEDS ORDERED: METHADONE HCL 40 MG DISPERSABLE TABLET ONE (06:29)
[2016-08-24] MEDS ORDERED: METHADONE HCL 10 MG TABLET ONE (06:29)
[2016-08-24] MEDS ORDERED: METHADONE HCL 5 MG TABLET ONE (06:30)
[2016-08-24] MEDS: GABAPENTIN 300 MG CAPSULE (FP) PO SCH ×3 (06:35→21:23)
[2016-08-24] MEDS: METHADONE 40 MG, METHADONE 20 MG, METHADONE 5 MG PO SCH (06:35)
--- NOTE | 2016-08-24 06:55 | HOSP ---
Subjective - Review of Symptoms Events since last encounter: Pt attempting to leave hospital. Pt diaphoretic and not answering questions appropriately. Pt is not listening to instructions to stay in room and attempts to leave hospital multiple times and is disruptive in the hallways. Pt attempted to leave via emergency exit on floor. Security called to floor. Pt continues to be disruptive in hallways and states she will leave the hospital and extremely inappropriate to staff. Pt keeps stating she has to be "somewhere" and has a flight to catch in 25 minutes. According to nurse this is not her usual behavior. She does not appear to have decision making capacity at this time. Pt will not allow for a physical exam. Dr. Serrano contacted who recommends klonopin 0.5 mg at this time and that pt will need to see vascular surgery today. Pt also given her morning dose of methadone. Pt may need utox, lab work up. Physical Examination Vital Signs: Vital Signs Temperature 97.9 F 08/24/16 02:00 Pulse Rate 115 H 08/24/16 02:00 Respiratory Rate 20 08/24/16 02:00 Blood Pressure 134/75 08/24/16 02:00 O2 Sat by Pulse Oximetry (%) 96 08/23/16 21:00 Labs: CBC, BMP 08/16/16 05:48 08/21/16 11:45 Visit type - Emergency Visit Emergency Visit: Yes ED Registration Date: 08/13/16 Care time: The patient presented to the Emergency Department on the above date and was hospitalized for further evaluation of their emergent condition. - New Patient This patient is new to me today: Yes Date on this admission: 08/26/16 - Critical Care Critical Care patient: No
[2016-08-24] MEDS: DIGOXIN 0.125 MG TABLET (FP) PO SCH (09:00)
[2016-08-24] MEDS: levETIRAcetam 500 MG TABLET (FP) PO SCH ×2 (09:00→21:23)
[2016-08-24] MEDS: AMOX TR/POT CLAV 500MG/125MG TABLETS (FP) PO SCH ×3 (09:00→18:05)
[2016-08-24] MEDS: BUDESONIDE/FORMETEROL FUMARATE 80/4.5 mcg INHALER IH SCH ×2 (09:01→21:30)
[2016-08-24] MEDS: FUROSEMIDE 40 MG TABLET (FP) PO SCH (09:01)
[2016-08-24] MEDS: clonazePAM 0.5 MG TABLET PO SCH ×2 (09:01→21:23)
[2016-08-24] MEDS: ACLIDINIUM BROMIDE 400 MCG/INH AERO.POWD IH SCH ×2 (09:01→21:27)
[2016-08-24] MEDS: LIDOCAINE 5% TOPICAL PATCH TP SCH (09:01)
[2016-08-24 09:37] LABS: BASOPHIL 1.3 % (0-2.0); EOSINOPHIL 0.7 % (0-4.5); MCH 31.7 pg (25.7-33.7); MCHC 33.8 g/dl (32.0-36.0); MEAN CELL VOLUME 93.8 fl (80-96); MEAN PLT VOLUME 9.5 fl (7.5-11.1); NEUTROPHILS 74.2 % (42.8-82.8); PLATELET COUNT 171 K/MM3 (134-434); RDW 15.7 % (11.6-15.6)
--- NOTE | 2016-08-24 09:50 | PN ---
Progress Note (short form) - Note Progress Note: POD #1 - s/p left iliac artery angiogram/angioplasty under MAC. Pt. doing well, sitting up comfortably at side of bed eating breakfast. No complaints. No apparent anesthetic complications noted. Continue current care.
[2016-08-24 10:16] LABS: ALBUMIN 3.1 g/dl (3.4-5.0); ALK PHOS 68 U/L (45-117); ANION GAP 11 (8-16); BILIRUBIN,TOTAL 0.5 mg/dL (0.2-1.0); CALCIUM 8.8 mg/dL (8.5-10.1); CO2 26 mmol/L (21-32); CREATININE 1.3 mg/dL (0.55-1.02); GLUCOSE,RANDOM 225 mg/dL (74-106); SGOT/AST 39 U/L (15-37); SGPT/ALT 41 U/L (12-78); TOT PROT 7.6 g/dl (6.4-8.2)
[2016-08-24] MEDS: ENOXAPARIN NA (PORCINE) 80 MG/0.8 ML DISP.SYRIN SQ SCH ×2 (10:31→10:44)
--- NOTE | 2016-08-24 11:22 | PN ---
Progress Note (short form) - Note Progress Note: s: no cp sob palps dizzy o: Vital Signs Period Temp Pulse Resp BP Sys/Smyth Pulse Ox Last 24 Hr 97.6 F-98.8 F 64-149 16-20 93-134/52-82 96-100 nad, no jvd irreg, tachy, s1s2 no mrg cta bl nl eff aaox3 no le e/c/c abd nt nd pos bs no jaundice diaphoresis Current Medications Generic Name Dose Route Start Last Admin Trade Name Freq PRN Reason Stop Dose Admin Acetaminophen 650 mg 08/23/16 14:14 Tylenol - PO Q6H PRN FEVER OR PAIN Aclidinium [place] 1 puff 08/23/16 22:00 08/24/16 09:01 Tudorza - IH 1 puff BID [facility] Administration Amoxicillin/Clavulanate Potassium 1 tab 08/23/16 17:30 08/24/16 09:00 Augmentin - 500mg Tablet PO 1 tab BID@0800,1730 [facility] Administration Budesonide/Formoterol Fumarate 2 puff 08/23/16 22:00 08/24/16 09:01 Symbicort 80/4.5mcg - IH 2 puff BID [facility] Administration Clonazepam 1 mg 08/23/16 22:00 08/24/16 09:01 Klonopin - PO 1 mg BID [facility] Administration Digoxin 0.125 mg 08/24/16 10:00 08/24/16 09:00 Lanoxin - PO 0.125 mg DAILY [facility] Administration Diltiazem HCl 120 mg 08/23/16 20:30 08/24/16 08:59 Cardizem Cd - PO 120 mg DAILY [facility] Administration Enoxaparin Sodium 80 mg 08/23/16 22:00 08/24/16 10:44 Lovenox - SQ 80 mg BID [facility] Administration Furosemide 40 mg 08/24/16 10:00 08/24/16 09:01 Lasix - PO 40 mg DAILY [facility] Administration Gabapentin 300 mg 08/23/16 22:00 08/24/16 06:35 Neurontin - PO 300 mg TID [facility] Administration Hydromorphone HCl 1 mg 08/23/16 14:14 Dilaudid Injection - IVPUSH 08/26/16 13:54 [id number] PRN PAIN Sodium Chloride 1,000 mls @ 83 mls/hr 08/23/16 14:14 08/23/16 14:43 Normal Saline - IV 0 mls ASDIR [facility] Administration Levetiracetam 500 mg 08/23/16 22:00 08/24/16 09:00 Keppra - PO 500 mg BID [facility] Administration Lidocaine 1 patch 08/24/16 10:00 08/24/16 09:01 Lidoderm Patch - TP 1 patch DAILY [facility] Administration Methadone HCl 40 mg/ Methadone 65 mg 08/24/16 06:00 08/24/16 06:35 HCl 20 mg/ Methadone HCl 5 mg PO 65 mg DAILY@0600 [facility] Administration Miscellaneous 1 each 08/23/16 22:00 08/23/16 21:18 Lidoderm Patch Removal MC Not Given DAILY@2200 [facility] Propranolol HCl 120 mg 08/24/16 10:00 08/24/16 10:30 Inderal La - PO Not Given DAILY [facility] Quetiapine Fumarate 25 mg 08/23/16 22:00 08/23/16 21:12 Seroquel - PO 25 mg HS [facility] Administration CBC, BMP 08/24/16 09:15 08/24/16 09:15 mibi 2012: no ischemia Echo 07/2016: nl lv/rv. 1+ lae, 1+ mr/tr Echo 12/2015: nl LVSF; nl RV; mild MR/TR; RVSP 30-40 CXR here with increased interstitial markings c/w chronic lung disease, but can' t exclude mild congestion. similar to priors. ekg: afib 125 bpm. lat STD/TWI tele: afib with rvr this AM a/p: 66 yo smoker on methadone maintenance who presents with hx pafib, hx pe on xarelto, copd, htn, anxiety, , lung cancer resected August 2012 at [facility], no h/o of RT or chemo, adenoma, RA, Hep C, thyroid nodules, buergers disaese who p/w left foot pain atrial fibrillation -08/24: rate had been acceptable past few days but yesterday did not get all meds due to npo for procedure and today HR is fast at times. She has gotten all her meds now, monitor response. If resting HR is <110 then continue current dig, inderal, dilt and ok for dc from cardiac pov. -pt does not seem to feel her afib as she denies any palpitations here or at home -pt should have outpt f/u and reassess HR--would rec "lenient rate control strategy" here, and if remains <110 HR at rest in office, with no attributable tachy sx's and normal LVEF, not further intensify med regimen -CHADS VASC 2--has been maintained on AC (xarelto at home), with h/o PE noted. -can resume xarelto now per vascular diastolic CHF -currently appears euvolemic would cont same outpatient lasix dosing. lasix 40 mg/day. Lt foot pain, infection/lt common iliac artery occlusion: - s/p left iliac stenting 08/23/16 - vascular f/u sob, copd, - chronic sob at baseline, stable. per pmd + tob/copd - smoking cessation counseling h/o DVT and PE: -? details of prior events -on AC. See discussion above. HTN: -stable, running low h/o heroin abuse: -on methadone maintenance
[2016-08-24] MEDS ORDERED: METOPROLOL TARTRATE 5 MG/5 ML VIAL IVPUSH PRN (13:37)
[2016-08-24] MEDS ORDERED: dilTIAZem HCL 60 MG TABLET (FP) PO ONE (14:15)
[2016-08-24] MEDS: SODIUM CHLORIDE 1,000 ML IV SCH (15:01)
--- NOTE | 2016-08-24 17:06 | PN ---
Progress Note, Physician History of Present Illness: patient post op no new issues wants to go home says she is doing well - Current Medication List Current Medications: Active Medications Acetaminophen (Tylenol -) 650 mg PO Q6H PRN PRN Reason: FEVER OR PAIN Aclidinium [place] (Tudorza -) 1 puff IH BID [facility] Last Admin: 08/24/16 09:01 Dose: 1 puff Amoxicillin/Clavulanate Potassium (Augmentin - 500mg Tablet) 1 tab PO BID@0800, 1730 [facility] Last Admin: 08/24/16 15:01 Dose: 1 tab Budesonide/Formoterol Fumarate (Symbicort 80/4.5mcg -) 2 puff IH BID [facility] Last Admin: 08/24/16 09:01 Dose: 2 puff Clonazepam (Klonopin -) 1 mg PO BID [facility] Last Admin: 08/24/16 09:01 Dose: 1 mg Digoxin (Lanoxin -) 0.125 mg PO DAILY [facility] Last Admin: 08/24/16 09:00 Dose: 0.125 mg Diltiazem HCl (Cardizem Cd -) 120 mg PO DAILY [facility] Last Admin: 08/24/16 08:59 Dose: 120 mg Furosemide (Lasix -) 40 mg PO DAILY [facility] Last Admin: 08/24/16 09:01 Dose: 40 mg Gabapentin (Neurontin -) 300 mg PO TID [facility] Last Admin: 08/24/16 15:01 Dose: 300 mg Hydromorphone HCl (Dilaudid Injection -) 1 mg IVPUSH [id number] PRN PRN Reason: PAIN Stop: 08/26/16 13:54 Sodium Chloride (Normal Saline -) 1,000 mls @ 83 mls/hr IV ASDIR [facility] Last Admin: 08/24/16 15:01 Dose: Not Given Levetiracetam (Keppra -) 500 mg PO BID [facility] Last Admin: 08/24/16 09:00 Dose: 500 mg Lidocaine (Lidoderm Patch -) 1 patch TP DAILY [facility] Last Admin: 08/24/16 09:01 Dose: 1 patch Methadone HCl 40 mg/ Methadone (HCl 20 mg/ Methadone HCl 5 mg) 65 mg PO DAILY@ 0600 [facility] Last Admin: 08/24/16 06:35 Dose: 65 mg Metoprolol Tartrate (Lopressor Injection -) 5 mg IVPUSH Q4H PRN PRN Reason: TACHYCARDIA Miscellaneous (Lidoderm Patch Removal) 1 each MC DAILY@2200 [facility] Last Admin: 08/23/16 21:18 Dose: Not Given Propranolol HCl (Inderal La -) 120 mg PO DAILY [facility] Last Admin: 08/24/16 10:30 Dose: Not Given Quetiapine Fumarate (Seroquel -) 25 mg PO HS [facility] Last Admin: 08/23/16 21:12 Dose: 25 mg Rivaroxaban (Xarelto -) 20 mg PO DAILY [facility] - Objective Vital Signs: Vital Signs Temperature 98.6 F 08/24/16 10:00 Pulse Rate 98 H 08/24/16 11:27 Respiratory Rate 20 08/24/16 02:00 Blood Pressure 151/71 08/24/16 10:00 O2 Sat by Pulse Oximetry (%) 96 08/24/16 11:27 Constitutional: Yes: No Distress, Calm Cardiovascular: Yes: S1, S2 Respiratory: Yes: Regular, CTA Bilaterally Gastrointestinal: Yes: Normal Bowel Sounds, Soft Musculoskeletal: Yes: Other Extremities: Yes: Other Neurological: Yes: Alert, Oriented Psychiatric: Yes: Alert Labs: CBC, BMP 08/24/16 09:15 08/24/16 09:15 Assessment/Plan - Problems ( Problems (1) Cellulitis Code(s): L03.90 - CELLULITIS, UNSPECIFIED Qualifiers: Site of cellulitis: extremity Site of cellulitis of extremity: lower extremity Laterality: left Qualified Code(s): L03.116 - Cellulitis of left lower limb (2) Injury, foot Code(s): S99.929A - UNSPECIFIED INJURY OF UNSPECIFIED FOOT, INITIAL ENCOUNTER Qualifiers: Encounter type: initial encounter Laterality: left Qualified Code(s ): S99.922A - Unspecified injury of left foot, initial encounter (3) Rapid atrial fibrillation Code(s): I48.91 - UNSPECIFIED ATRIAL FIBRILLATION (4) COPD (chronic obstructive pulmonary disease) with emphysema Code(s): J43.9 - EMPHYSEMA, UNSPECIFIED (5) A-fib Code(s): I48.91 - UNSPECIFIED ATRIAL FIBRILLATION Qualifiers: Atrial fibrillation type: chronic Qualified Code(s): I48.2 - Chronic atrial fibrillation plan continue current mgmt post op from angioplasty continue current mgmt rest as per primary
[2016-08-24] MEDS: QUEtiapine FUMARATE 25 MG TABLET (FP) PO SCH (21:23)
[2016-08-24] MEDS: RIVAROXABAN 20 MG TABLET PO SCH (21:23)
[2016-08-24] MEDS: LIDOCAINE PATCH REMOVAL MC SCH (21:24)
--- NOTE | 2016-08-24 23:32 | PN ---
Progress Note, Physician - Current Medication List Current Medications: Active Medications Acetaminophen (Tylenol -) 650 mg PO Q6H PRN PRN Reason: FEVER OR PAIN Aclidinium [place] (Tudorza -) 1 puff IH BID [facility] Last Admin: 08/24/16 21:27 Dose: 1 puff Amoxicillin/Clavulanate Potassium (Augmentin - 500mg Tablet) 1 tab PO BID@0800, 1730 [facility] Last Admin: 08/24/16 18:05 Dose: Not Given Budesonide/Formoterol Fumarate (Symbicort 80/4.5mcg -) 2 puff IH BID [facility] Last Admin: 08/24/16 21:30 Dose: 2 puff Clonazepam (Klonopin -) 1 mg PO BID [facility] Last Admin: 08/24/16 21:23 Dose: 1 mg Digoxin (Lanoxin -) 0.125 mg PO DAILY [facility] Last Admin: 08/24/16 09:00 Dose: 0.125 mg Diltiazem HCl (Cardizem Cd -) 120 mg PO DAILY [facility] Last Admin: 08/24/16 08:59 Dose: 120 mg Furosemide (Lasix -) 40 mg PO DAILY [facility] Last Admin: 08/24/16 09:01 Dose: 40 mg Gabapentin (Neurontin -) 300 mg PO TID [facility] Last Admin: 08/24/16 21:23 Dose: 300 mg Hydromorphone HCl (Dilaudid Injection -) 1 mg IVPUSH [id number] PRN PRN Reason: PAIN Stop: 08/26/16 13:54 Sodium Chloride (Normal Saline -) 1,000 mls @ 83 mls/hr IV ASDIR [facility] Last Admin: 08/24/16 15:01 Dose: Not Given Levetiracetam (Keppra -) 500 mg PO BID [facility] Last Admin: 08/24/16 21:23 Dose: 500 mg Lidocaine (Lidoderm Patch -) 1 patch TP DAILY [facility] Last Admin: 08/24/16 09:01 Dose: 1 patch Methadone HCl 40 mg/ Methadone (HCl 20 mg/ Methadone HCl 5 mg) 65 mg PO DAILY@ 0600 [facility] Last Admin: 08/24/16 06:35 Dose: 65 mg Metoprolol Tartrate (Lopressor Injection -) 5 mg IVPUSH Q4H PRN PRN Reason: TACHYCARDIA Miscellaneous (Lidoderm Patch Removal) 1 each MC DAILY@2200 [facility] Last Admin: 08/24/16 21:24 Dose: 1 each Propranolol HCl (Inderal La -) 120 mg PO DAILY [facility] Last Admin: 08/24/16 10:30 Dose: Not Given Quetiapine Fumarate (Seroquel -) 25 mg PO HS [facility] Last Admin: 08/24/16 21:23 Dose: 25 mg Rivaroxaban (Xarelto -) 20 mg PO DAILY [facility] Last Admin: 08/24/16 21:23 Dose: 20 mg - Objective Vital Signs: Vital Signs Temperature 98.6 F 08/24/16 10:00 Pulse Rate 98 H 08/24/16 11:27 Respiratory Rate 20 08/24/16 02:00 Blood Pressure 151/71 08/24/16 10:00 O2 Sat by Pulse Oximetry (%) 95 08/24/16 20:26 Labs: CBC, BMP 08/24/16 09:15 08/24/16 09:15 Problem List - Problems (1) Cellulitis Code(s): L03.90 - CELLULITIS, UNSPECIFIED Qualifiers: Site of cellulitis: extremity Site of cellulitis of extremity: lower extremity Laterality: left Qualified Code(s): L03.116 - Cellulitis of left lower limb (2) A-fib Code(s): I48.91 - UNSPECIFIED ATRIAL FIBRILLATION Qualifiers: Atrial fibrillation type: chronic Qualified Code(s): I48.2 - Chronic atrial fibrillation (3) COPD (chronic obstructive pulmonary disease) with emphysema Code(s): J43.9 - EMPHYSEMA, UNSPECIFIED (4) Anxiety Code(s): F41.9 - ANXIETY DISORDER, UNSPECIFIED (5) Hypertension Code(s): I10 - ESSENTIAL (PRIMARY) HYPERTENSION
[2016-08-25] MEDS ORDERED: METHADONE HCL 10 MG TABLET ONE (05:36)
[2016-08-25] MEDS ORDERED: METHADONE HCL 40 MG DISPERSABLE TABLET ONE (05:36)
[2016-08-25] MEDS ORDERED: METHADONE HCL 5 MG TABLET ONE (05:37)
[2016-08-25] MEDS: GABAPENTIN 300 MG CAPSULE (FP) PO SCH (06:25)
[2016-08-25] MEDS: METHADONE 40 MG, METHADONE 20 MG, METHADONE 5 MG PO SCH (06:26)
[2016-08-25] MEDS: LIDOCAINE 5% TOPICAL PATCH TP SCH (09:28)
[2016-08-25] MEDS: ACLIDINIUM BROMIDE 400 MCG/INH AERO.POWD IH SCH (09:30)
[2016-08-25] MEDS: BUDESONIDE/FORMETEROL FUMARATE 80/4.5 mcg INHALER IH SCH (09:30)
[2016-08-25] MEDS: RIVAROXABAN 20 MG TABLET PO SCH (09:30)
[2016-08-25] MEDS: clonazePAM 0.5 MG TABLET PO SCH (09:30)
[2016-08-25] MEDS: FUROSEMIDE 40 MG TABLET (FP) PO SCH (09:30)
[2016-08-25] MEDS: AMOX TR/POT CLAV 500MG/125MG TABLETS (FP) PO SCH (09:30)
[2016-08-25] MEDS: DIGOXIN 0.125 MG TABLET (FP) PO SCH (09:30)
[2016-08-25] MEDS: levETIRAcetam 500 MG TABLET (FP) PO SCH (09:39)
[2016-08-25 11:51] VITALS: BP 112/59; TEMP 98
[2016-08-25 11:54] VITALS: PULSE 82
--- NOTE | 2016-08-26 19:59 | OP ---
DATE OF OPERATION: 08/23/2016 PREOPERATIVE DIAGNOSIS: Left lower extremity claudication. POSTOPERATIVE DIAGNOSIS: Left lower extremity claudication. PROCEDURE: Aortogram, left iliac artery aortogram, left iliac artery angiogram, angioplasty with stent placement. SURGEON: Nilay Montero DO ANESTHESIA: Fractional. BLOOD LOSS: 20 mL. The patient is a 66-year-old female who has left lower extremity claudication. Preoperative CTA showed left iliac artery occlusion. It was decided that patient would need an angiogram. Patient was consented for the procedure, understanding all risks, benefits and alternatives. She was then taken to the operating room. Once in the operating room, she was laid on the operating table in supine manner, and the area of the right and left groin were prepped and draped in a sterile surgical manner. We then, under ultrasound guidance, visualized the left common femoral artery, and 10 mL of lidocaine 1% was injected there. We then took our micropuncture needle and punctured the left common femoral artery. A micropuncture wire was inserted and a traditional 7-[place] sheath was inserted. Then 5000 units of IV heparin were administered to patient. We then placed a 0.035 floppy guidewire followed by a Quick-Cross catheter up into the left iliac artery to the common iliac artery, where there was some resistance, and using the Quick-Cross catheter, we were able to selectively cross into the aorta. We then placed an Omni Flush catheter up in the aorta and shot an aortogram, showing that the aorta was patent, the right common iliac artery was patent but the left common iliac artery was occluded for 5 cm. At this point we went ahead and brought up an 8 x 39 Valeo balloon-mounted stent and deployed it in the left common iliac artery. Completion angiogram now showed that the iliac artery was patent but proximally and distally there were still some areas of stenosis. At this point we used an 8 x 6 [place] balloon and performed angioplasty of the iliac artery and completion angiogram now showed that the artery was completely patent and there was good flow. At this point, StarClose device was successfully deployed in the left common femoral artery. Pressure was held for 5 minutes. After there was no bleeding, the area was wet and dried and Dermabond was placed. The patient tolerated the procedure, no complication. Patient now has palpable left common femoral artery pulse. The patient was transferred back in stable condition. Total blood loss 20 mL. NILAY MONTERO DO [id number]
== END 2016-08-25 14:07 | disposition left against medical advice (07) | DRG 364 ==
LOC: JER 08:57 → JERBED 16:38 → UNDOADMIN 16:38 → JERBED 21:48 → J4W 08-14 16:36 → JERBED 08-23 18:55 → J4W 08-23 19:03
PROVIDERS: ADMIT Internal Medicine; ATTEND Internal Medicine
PROC: B41DYZZ Fluoroscopy of Aorta and Bilateral Lower Extremity Arteries using Other Contrast (ICD-10-PCS; 2016-08-23)
PROC: B41GYZZ Fluoroscopy of Left Lower Extremity Arteries using Other Contrast (ICD-10-PCS; 2016-08-23)
PROC: 047D3DZ Dilation of Left Common Iliac Artery with Intraluminal Device, Percutaneous Approach (ICD-10-PCS; principal; 2016-08-23 11:30)
DX: L03.116 Cellulitis of left lower limb (principal); I74.5 Embolism and thrombosis of iliac artery; I11.0 Hypertensive heart disease with heart failure; I50.32 Chronic diastolic (congestive) heart failure; I73.1 Thromboangiitis obliterans [Buerger's disease]; I48.2 Chronic atrial fibrillation; F11.20 Opioid dependence, uncomplicated; S99.822A Other specified injuries of left foot, initial encounter; J44.9 Chronic obstructive pulmonary disease, unspecified; Z86.718 Personal history of other venous thrombosis and embolism; B19.20 Unspecified viral hepatitis C without hepatic coma; I73.9 Peripheral vascular disease, unspecified; F17.210 Nicotine dependence, cigarettes, uncomplicated; F41.9 Anxiety disorder, unspecified; Z86.711 Personal history of pulmonary embolism; Z79.01 Long term (current) use of anticoagulants; E04.1 Nontoxic single thyroid nodule; X58.XXXA Exposure to other specified factors, initial encounter; Y93.89 Activity, other specified; M06.9 Rheumatoid arthritis, unspecified; Y92.89 Other specified places as the place of occurrence of the external cause; Y99.8 Other external cause status; Z85.118 Personal history of other malignant neoplasm of bronchus and lung
CPT/HCPCS: 36415; 71010-TC; 73560-TC-LT; 73630-TC-LT; 75635-TC; 76000-TC; 80048; 80053; 80162; 80307; 81003; 81015; 82550; 83605; 83735; 84484; 85025; 85027; 87040; 87086; 93005; 93010; 93925-TC; 93970-TC; 94760; 99285-25; J1644

== ENCOUNTER 2016-08-27 14:09 | Observation (INO) | payer OTHER ==
[2016-08-27] MEDS: BUDESONIDE/FORMETEROL FUMARATE 80/4.5 mcg INHALER IH SCH
--- NOTE | 2016-08-27 15:48 | PDOC ---
History of Present Illness - General Chief Complaint: Revisit, Lab Variance Stated Complaint: REVISIT Time Seen by Provider: 08/27/16 15:21 History Source: Patient Exam Limitations: No Limitations - History of Present Illness Initial Comments: 08/27/16 15:46 66 yr female called back to the ER from social media intern who states she was sent in by to have labs repeated. Pt was in hospital last week had elevated lactic and pt AMA. Pt is here to have her blood drawn and to resume her mental health social worker at home. Pt denies fevers, chills no abd pain . Past History - Past Medical History Allergies/Adverse Reactions: Allergies Allergy/AdvReac Type Severity Reaction Status Date / Time No Known Allergies Allergy Verified 08/27/16 14:20 Home Medications: Ambulatory Orders Methadone [Dolophine -] 65 mg PO DAILY 10/19/14 Tiotropium [place] [Spiriva] 1 inh PO BID 10/19/14 Albuterol Sulfate Inhaler - [Ventolin HFA Inhaler -] 2 inh PO Q4H PRN 12/08/15 Fluticasone/Salmeterol [Advair 250-50 Diskus] 1 puff IN BID 07/08/16 Gabapentin [Neurontin] 300 mg PO TID 07/08/16 Albuterol 2.5/Ipratropium 0.5 [Duoneb -] 1 amp NEB Q6H PRN #30 amp 07/16/16 Albuterol 2.5/Ipratropium 0.5 [Duoneb -] 1 amp NEB QIDR 30 Days 07/16/16 Digoxin [Lanoxin -] 0.125 mg PO DAILY #30 tablet 07/16/16 Diltiazem [Cardizem -] 90 mg PO QID #120 tablet 07/16/16 Docusate Sodium [Colace -] 100 mg PO TID #100 capsule 07/16/16 Levetiracetam [Keppra -] 500 mg PO BID #60 tab 07/16/16 Levetiracetam [Keppra -] 500 mg PO BID #60 tablet 07/16/16 Lidocaine 5% Patch [Lidoderm -] 1 patch TP DAILY #15 patch 07/16/16 Nicotine Patch [Nicoderm Patch -] 1 patch TD DAILY #7 patch 07/16/16 Prednisone [Deltasone -] 40 mg PO DAILY #30 tablet 07/16/16 Propranolol HCl [Inderal LA -] 120 mg PO DAILY #30 cap 07/16/16 Quetiapine Fumarate [Seroquel -] 25 mg PO DAILY PRN #30 tablet 07/16/16 Clonazepam [Klonopin -] 1 mg PO BID 08/14/16 Quetiapine Fumarate [Seroquel -] 25 mg PO HS #30 tablet 08/29/16 Rivaroxaban [Xarelto -] 20 mg PO DAILY #7 tab 08/29/16 Anemia: No Asthma: No Cancer: Yes (lung, adrenal) Cardiac Disorders: Yes (afib) CVA: No COPD: Yes (O2 DEPENDENT @ HOME) CHF: No Dementia: No Diabetes: No GI Disorders: Yes (hep c) Disorders: No HTN: Yes Hypercholesterolemia: No Kidney Stones: No Liver Disease: Yes (hep C) Psychiatric Problems: Yes (anxiety) Suicide Attempt (Hx): No Seizures: Yes Thyroid Disease: Yes (THYROID NODULES) - Surgical History Abdominal Surgery: No Appendectomy: No Cardiac Surgery: No Cholecystectomy: No Lung Surgery: Yes (LEFT UPPER LOBE LOBECTOMY IN 08/2012) Neurologic Surgery: No Orthopedic Surgery: No - Family Disease History Family Disease History: Other: Mother (non contributory) - Reproductive History PID: No - Immunization History Immunization Up to Date: Yes - Psycho/Social/Smoking Cessation Hx Anxiety: No Suicidal Ideation: No Smoking Status: No Smoking History: Current every day smoker Have you smoked in the past 12 months: Yes Number of Cigarettes Smoked Daily: 20 If you are a former smoker, when did you quit?: 03-17-13 Information on smoking cessation initiated: No 'Breaking Loose' booklet given: 04/17/16 Hx Alcohol Use: No Drug/Substance Use Hx: Yes Substance Use Type: Heroin Hx Substance Use Treatment: Yes (METHADONE FROM CLINIC) *Physical Exam - Vital Signs Last Vital Signs Temp Pulse Resp BP Pulse Ox 98 F 130 H 18 112/61 98 08/27/16 14:11 08/27/16 14:11 08/27/16 14:11 08/27/16 14:11 08/27/16 14:11 - Physical Exam General Appearance: Yes: Nourished, Appropriately Dressed HEENT: positive: EOMI, NAHID Neck: positive: Supple. negative: Tender, Lymphadenopathy (R), Lymphadenopathy (L) Respiratory/Chest: positive: Lungs Clear, Normal Breath Sounds Cardiovascular: positive: Regular Rhythm, Regular Rate, Irregularly Irregular ( HR 83 and irregular ) Gastrointestinal/Abdominal: positive: Normal Bowel Sounds, Soft Musculoskeletal: positive: Normal Inspection Extremity: positive: Normal Capillary Refill, Normal Inspection, Normal Range of Motion Integumentary: positive: Normal Color, Dry, Warm, Bruising, Other (multiple areas of broken skin on arms, legs ) Neurologic: positive: Fully Oriented, Alert, Normal Mood/Affect, Normal Response , Motor Strength 07/06 ED Treatment Course - LABORATORY CBC & Chemistry Diagram: 08/28/16 07:20 08/27/16 16:00 - Consult/PCP Time Called: 17:30 Case discussed with personal care physician: Marianne Morrell (will obs p) Consult Reason/Comments: case discussed agrees to admit to observation status. Medical Decision Making - Medical Decision Making 08/27/16 16:42 cc: repeat labs and to speak with STATIONS SUPERINTENDENT/outpatient case manager case discussed with who states pt needs repeat labs including lactic if normal may be dc home. pt has chronic afib, asthma , PAD, hep c. pt denies chest pain no shortness of breath. 08/27/16 17:33 case discussed with and she will obs pt for cellulitus. STATIONS SUPERINTENDENT and myself have discussed with the patient who understands the plan of care to be admitted. charge nurse Ludivina aware and will place the pt to the main ER. Pt is currently in the fast track area . 08/27/16 17:37 08/27/16 17:43 case discussed with in the main ER (ER attending) who is aware of pt being placed in the ER. 08/27/16 19:38 08/27/16 19:39 08/27/16 19:40 08/31/16 08:15 *DC/Admit/Observation/Transfer Diagnosis at time of Disposition: Abnormal laboratory test - Discharge Dispostion Disposition: HOME Admit: Yes - Prescriptions
[2016-08-27 16:17] LABS: BASOPHIL 0.8 % (0-2.0); EOSINOPHIL 0.8 % (0-4.5); MCH 31.3 pg (25.7-33.7); MCHC 32.9 g/dl (32.0-36.0); MEAN CELL VOLUME 95.1 fl (80-96); MEAN PLT VOLUME 9.5 fl (7.5-11.1); NEUTROPHILS 75.9 % (42.8-82.8); PLATELET COUNT 214 K/MM3 (134-434); RDW 16.2 % (11.6-15.6); WHITE BLOOD COUNT 14.3 K/mm3 (4.0-10.0)
[2016-08-27 16:48] LABS: ALBUMIN 3.3 g/dl (3.4-5.0); ANION GAP 10 (8-16); BILIRUBIN,TOTAL 0.6 mg/dL (0.2-1.0); CALCIUM 8.4 mg/dL (8.5-10.1); CO2 28 mmol/L (21-32); CREATININE 1.1 mg/dL (0.55-1.02); GLUCOSE,RANDOM 183 mg/dL (74-106); SGPT/ALT 38 U/L (12-78); TOT PROT 7.8 g/dl (6.4-8.2)
[2016-08-27 16:49] LABS: ALK PHOS 66 U/L (45-117)
[2016-08-27 16:51] LABS: SGOT/AST 36 U/L (15-37)
[2016-08-27] MEDS ORDERED: ALBUTEROL SO4 2.5/IPRATROPIUM 0.5 INH SOL 3 ML VIAL.NEB. NEB ONE ×2 (17:49→18:07)
[2016-08-27] MEDS ORDERED: dilTIAZem HCL 60 MG TABLET (FP) PO ONE (17:49)
[2016-08-27] MEDS ORDERED: GABAPENTIN 300 MG CAPSULE (FP) PO ONE (17:49)
[2016-08-27] MEDS ORDERED: clonazePAM 0.5 MG TABLET PO ONE (17:49)
[2016-08-27] MEDS ORDERED: GABAPENTIN 100 MG CAPSULE (FP) ONE (18:06)
[2016-08-27] MEDS ORDERED: dilTIAZem HCL 30 MG TABLET (FP) ONE (18:06)
[2016-08-27] MEDS ORDERED: clonazePAM 0.5 MG TABLET ONE (18:06)
[2016-08-27] MEDS ORDERED: dilTIAZem HCL 60 MG TABLET (FP) ONE (18:06)
--- NOTE | 2016-08-27 20:59 | HP ---
Admitting History and Physical - Primary Care Physician PCP: Marianne Morrell - Admission History of Present Illness: 66 yr female called back to the ER from older adult social work specialist who states she was sent in by to have labs repeated. Pt was in hospital last week had elevated lactic and pt AMA. 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 Pt denies fevers, chills no abd pain . 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), Anxiety Musculoskeletal: Yes: Chronic low back pain Endocrine: Yes: Other (benign adrenal nodule s/p bx) - Smoking History Smoking history: Current every day smoker Have you smoked in the past 12 months: Yes Aproximately how many cigarettes per day: 20 If you are a former smoker, when did you quit?: 03-17-13 - Alcohol/Substance Use Hx Alcohol Use: No History of Substance Use: reports: None - Social History History of Recent Travel: No Home Medications - Allergies Allergies/Adverse Reactions: Allergies Allergy/AdvReac Type Severity Reaction Status Date / Time No Known Allergies Allergy Verified 08/27/16 14:20 - Home Medications Home Medications: Ambulatory Orders Methadone [Dolophine -] 65 mg PO DAILY 10/19/14 Tiotropium [place] [Spiriva] 1 inh PO BID 10/19/14 Albuterol Sulfate Inhaler - [Ventolin HFA Inhaler -] 2 inh PO Q4H PRN 12/08/15 Rivaroxaban [Xarelto -] 20 mg PO DAILY 12/10/15 Fluticasone/Salmeterol [Advair 250-50 Diskus] 1 puff IN BID 07/08/16 Gabapentin [Neurontin] 300 mg PO TID 07/08/16 Albuterol 2.5/Ipratropium 0.5 [Duoneb -] 1 amp NEB Q6H PRN #30 amp 07/16/16 Albuterol 2.5/Ipratropium 0.5 [Duoneb -] 1 amp NEB QIDR 30 Days 07/16/16 Digoxin [Lanoxin -] 0.125 mg PO DAILY #30 tablet 07/16/16 Diltiazem [Cardizem -] 90 mg PO QID #120 tablet 07/16/16 Docusate Sodium [Colace -] 100 mg PO TID #100 capsule 07/16/16 Levetiracetam [Keppra -] 500 mg PO BID #60 tab 07/16/16 Levetiracetam [Keppra -] 500 mg PO BID #60 tablet 07/16/16 Lidocaine 5% Patch [Lidoderm -] 1 patch TP DAILY #15 patch 07/16/16 Nicotine Patch [Nicoderm Patch -] 1 patch TD DAILY #7 patch 07/16/16 Prednisone [Deltasone -] 40 mg PO DAILY #30 tablet 07/16/16 Propranolol HCl [Inderal LA -] 120 mg PO DAILY #30 cap 07/16/16 Quetiapine Fumarate [Seroquel -] 25 mg PO DAILY PRN #30 tablet 07/16/16 Quetiapine Fumarate [Seroquel -] 300 mg PO HS #30 tablet 07/16/16 Clonazepam [Klonopin -] 1 mg PO BID 08/14/16 Family Disease History - Family Disease History Family Disease History: Other: Father (ETOH DEPENDENT), Mother (HAD CVA AND ) Physical Examination Vital Signs: Vital Signs Temperature 98 F 08/27/16 14:11 Pulse Rate 130 H 08/27/16 14:11 Respiratory Rate 18 08/27/16 14:11 Blood Pressure 112/61 08/27/16 14:11 O2 Sat by Pulse Oximetry (%) 98 08/27/16 14:11 Constitutional: Yes: No Distress HENT: Yes: Atraumatic Neck: Yes: Supple Cardiovascular: Yes: Regular Rate and Rhythm Respiratory: Yes: CTA Bilaterally Gastrointestinal: Yes: Normal Bowel Sounds Extremities: Yes: Other (left 5th toe blue discoloration) Neurological: Yes: Alert, Oriented Problem List - Problems (1) Abnormal laboratory test Code(s): R89.9 - UNSP ABNORMAL FINDING IN SPECIMENS FROM OTH ORG/TISS (2) COPD (chronic obstructive pulmonary disease) with emphysema Code(s): J43.9 - EMPHYSEMA, UNSPECIFIED (3) Lactic acid acidosis Code(s): E87.2 - ACIDOSIS (4) Cellulitis Assessment/Plan: start abx id consult Code(s): L03.90 - CELLULITIS, UNSPECIFIED Qualifiers: Site of cellulitis: extremity Site of cellulitis of extremity: lower extremity Laterality: left Qualified Code(s): L03.116 - Cellulitis of left lower limb (5) PVD (peripheral vascular disease) Assessment/Plan: l get dr mendenhall involve s/p stent left lower ext Code(s): I73.9 - PERIPHERAL VASCULAR DISEASE, UNSPECIFIED Assessment/Plan Laboratory Tests 08/27/16 08/27/16 08/27/16 16:00 16:00 16:00 WBC 14.3 H D RBC 3.88 Hgb 12.1 Hct 36.9 MCV 95.1 MCHC 32.9 RDW 16.2 H Plt Count 214 D MPV 9.5 Neutrophils % 75.9 Lymphocytes % 14.7 Monocytes % 7.8 Eosinophils % 0.8 Basophils % 0.8 Sodium 138 Potassium 4.0 Chloride 100 Carbon Dioxide 28 Anion Gap 10 BUN 5 L D Creatinine 1.1 H Creat Clearance w eGFR 50.01 Random Glucose 183 H Lactic Acid 2.5 H* Calcium 8.4 L Total Bilirubin 0.6 AST 36 ALT 38 Alkaline Phosphatase 66 Total Protein 7.8 Albumin 3.3 L Active Medications Generic Name Dose Route Start Last Admin Trade Name Freq PRN Reason Stop Dose Admin Aclidinium [place] 1 puff 08/27/16 22:00 08/29/16 09:17 Tudorza - IH 1 puff BID LORRIE Administration Albuterol Sulfate 1 amp 08/27/16 22:27 08/29/16 13:35 Ventolin 0.083% Nebulizer Soln - NEB 1 amp Q4H PRN Administration SHORT OF BREATH/WHEEZING Budesonide/Formoterol Fumarate 2 puff 08/27/16 22:00 08/29/16 09:17 Symbicort 80/4.5mcg - IH 2 puff BID LORRIE Administration Clonazepam 1 mg 08/27/16 22:00 08/29/16 09:17 Klonopin - PO 1 mg BID LORRIE Administration Digoxin 0.125 mg 08/27/16 21:15 08/29/16 09:19 Lanoxin - PO 0.125 mg DAILY LORRIE Administration Diltiazem HCl 90 mg 08/27/16 22:00 06/28/17 14:27 Cardizem - PO Not Given QID LORRIE Docusate Sodium 100 mg 08/27/16 22:00 08/29/16 15:25 Colace - PO 100 mg TID LORRIE Administration Gabapentin 300 mg 08/27/16 22:00 08/29/16 14:27 Neurontin - PO Not Given TID LORRIE Levetiracetam 500 mg 08/27/16 22:00 08/29/16 09:19 Keppra - PO 500 mg BID LORRIE Administration Lidocaine 1 patch 08/28/16 10:00 08/29/16 09:19 Lidoderm Patch - TP 1 patch DAILY LORRIE Administration Methadone HCl 40 mg/ Methadone 65 mg 08/28/16 10:00 08/29/16 09:17 HCl 20 mg/ Methadone HCl 5 mg PO 65 mg DAILY LORRIE Administration Nicotine 21 mg 08/28/16 10:00 08/29/16 09:18 Nicoderm Patch - TD 21 mg DAILY LORRIE Administration Propranolol HCl 120 mg 08/28/16 10:00 08/29/16 12:30 Inderal La - PO 120 mg DAILY LORRIE Administration Quetiapine Fumarate 25 mg 08/28/16 10:00 08/29/16 09:19 Seroquel - PO 25 mg DAILY LORRIE Administration Rivaroxaban 20 mg 08/28/16 10:00 08/29/16 12:30 Xarelto - PO 20 mg DAILY LORRIE Administration
[2016-08-27] MEDS ORDERED: QUEtiapine FUMARATE 25 MG TABLET (FP) PO PRN (21:01)
[2016-08-27] MEDS ORDERED: ALBUTEROL SO4 0.083% IH SOL 2.5 MG/3 ML VIAL.NEB. NEB ONE (21:20)
[2016-08-27] MEDS: DIGOXIN 0.125 MG TABLET (FP) PO SCH (22:00)
[2016-08-27] MEDS ORDERED: DIGOXIN 0.125 MG TABLET (FP) ONE (22:05)
[2016-08-27] MEDS ORDERED: PIPERACILLIN/TAZOB 3.375 GM 50 ML IVPB ONE (22:19)
[2016-08-27] MEDS: dilTIAZem HCL 30 MG TABLET (FP) PO SCH (22:23)
[2016-08-27] MEDS ORDERED: VANCOMYCIN 1 GRAM (PRE-DOCKED) 1,000 MG/250 ML BAG IVPB ONE (22:28)
[2016-08-27] MEDS: clonazePAM 0.5 MG TABLET PO SCH (22:35)
[2016-08-27] MEDS: DOCUSATE SODIUM 100 MG CAPSULE (FP) PO SCH (22:35)
[2016-08-27] MEDS: levETIRAcetam 500 MG TABLET (FP) PO SCH (22:35)
[2016-08-27] MEDS: GABAPENTIN 300 MG CAPSULE (FP) PO SCH (22:35)
[2016-08-28 00:38] VITALS: BMI 33.5
[2016-08-28] MEDS: DOCUSATE SODIUM 100 MG CAPSULE (FP) PO SCH ×3 (06:12→22:25)
[2016-08-28] MEDS: GABAPENTIN 300 MG CAPSULE (FP) PO SCH ×3 (06:12→22:25)
[2016-08-28] MEDS: ALBUTEROL SO4 0.083% IH SOL 2.5 MG/3 ML VIAL.NEB. NEB PRN ×2 (06:40→22:35)
[2016-08-28] MEDS ORDERED: AMOX TR/POT CLAV 500MG/125MG TABLETS (FP) PO SCH (08:00)
[2016-08-28 08:53] LABS: BASOPHIL 0.7 % (0-2.0); EOSINOPHIL 1.8 % (0-4.5); MCH 31.7 pg (25.7-33.7); MCHC 33.3 g/dl (32.0-36.0); MEAN CELL VOLUME 95.4 fl (80-96); PLATELET COUNT 168 K/MM3 (134-434); RDW 16.3 % (11.6-15.6); WHITE BLOOD COUNT 11.2 K/mm3 (4.0-10.0)
[2016-08-28] MEDS ORDERED: METHADONE HCL 5 MG TABLET ONE (09:42)
[2016-08-28] MEDS ORDERED: METHADONE HCL 10 MG TABLET ONE (09:42)
[2016-08-28] MEDS ORDERED: METHADONE HCL 40 MG DISPERSABLE TABLET ONE (09:42)
[2016-08-28] MEDS: LIDOCAINE 5% TOPICAL PATCH TP SCH (09:47)
[2016-08-28] MEDS: clonazePAM 0.5 MG TABLET PO SCH ×2 (09:48→22:25)
[2016-08-28] MEDS: METHADONE 40 MG, METHADONE 20 MG, METHADONE 5 MG PO SCH (09:49)
[2016-08-28] MEDS: levETIRAcetam 500 MG TABLET (FP) PO SCH ×2 (09:50→22:25)
[2016-08-28] MEDS: dilTIAZem HCL 30 MG TABLET (FP) PO SCH ×4 (09:50→22:25)
[2016-08-28] MEDS: DIGOXIN 0.125 MG TABLET (FP) PO SCH (09:50)
[2016-08-28] MEDS: ACLIDINIUM BROMIDE 400 MCG/INH AERO.POWD IH SCH ×3 (09:51→22:26)
[2016-08-28] MEDS: NICOTINE 21 MG/24 HOURS TOPICAL PATCH TD SCH (09:51)
[2016-08-28] MEDS: QUEtiapine FUMARATE 25 MG TABLET (FP) PO SCH (09:51)
[2016-08-28] MEDS: BUDESONIDE/FORMETEROL FUMARATE 80/4.5 mcg INHALER IH SCH ×2 (09:51→22:25)
[2016-08-28] MEDS ORDERED: PT OWN MED DRAWER 7, Y5N ONE ×2 (09:54→21:26)
[2016-08-28] MEDS ORDERED: METHADONE HCL 10 MG TABLET PO SCH (10:00)
--- NOTE | 2016-08-28 11:37 | EKG ---
Test Reason : Blood Pressure : / mmHG Vent. Rate : 096 BPM Atrial Rate : 127 BPM P-R Int : 000 ms QRS Dur : 090 ms QT Int : 360 ms P-R-T Axes : 000 035 -10 degrees QTc Int : 454 ms ATRIAL FIBRILLATION ABNORMAL ECG WHEN COMPARED WITH ECG OF 13-AUG-2016 10:01, T WAVE VARIATION Confirmed by HEMALATHA ROGEL MD ([id number]) on 08/28/2016 11:37:22 AM Referred By: Confirmed By:HEMALATHA ROGEL MD
[2016-08-28] MEDS: RIVAROXABAN 20 MG TABLET PO SCH (13:49)
--- NOTE | 2016-08-28 15:05 | CONSULT ---
Consult Consult Specialty:: infectious diseases Reason for Consultation:: cellulitis of the leg - History of Present Illness History of Present Illness: this patient well known to me from last admission now coming back to the hospital because of abnormal labs patient has no complaints patient had signed out ama and on sign out had elevated lactic acid and basically also there was slight discoloration of the little finger of the leg - Past Medical History Cardio/Vascular: Yes: AFIB, HTN, Hyperlipdemia Pulmonary: Yes: COPD Gastrointestinal: Yes: Other (HEP C) Hepatobiliary: Yes: Hepatitis C Infectious Disease: Yes: Other (recent hx of admission to the hosp for pneumonia ) Psych: Yes: Addictions (WAS ON 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), Anxiety Musculoskeletal: Yes: Chronic low back pain Endocrine: Yes: Other (benign adrenal nodule s/p bx) - Alcohol/Substance Use Hx Alcohol Use: No History of Substance Use: reports: None - Smoking History Smoking history: Former smoker Have you smoked in the past 12 months: Yes Aproximately how many cigarettes per day: 20 If you are a former smoker, when did you quit?: 03-17-13 - Social History Usual Living Arrangement: Alone (considered w/a terminally ill condition which enables her get the single room she is currently in.) History of Recent Travel: No Home Medications - Allergies Allergies/Adverse Reactions: Allergies Allergy/AdvReac Type Severity Reaction Status Date / Time No Known Allergies Allergy Verified 08/27/16 14:20 - Home Medications Home Medications: Ambulatory Orders Methadone [Dolophine -] 65 mg PO DAILY 10/19/14 Tiotropium [place] [Spiriva] 1 inh PO BID 10/19/14 Albuterol Sulfate Inhaler - [Ventolin HFA Inhaler -] 2 inh PO Q4H PRN 12/08/15 Rivaroxaban [Xarelto -] 20 mg PO DAILY 12/10/15 Fluticasone/Salmeterol [Advair 250-50 Diskus] 1 puff IN BID 07/08/16 Gabapentin [Neurontin] 300 mg PO TID 07/08/16 Albuterol 2.5/Ipratropium 0.5 [Duoneb -] 1 amp NEB Q6H PRN #30 amp 07/16/16 Albuterol 2.5/Ipratropium 0.5 [Duoneb -] 1 amp NEB QIDR 30 Days 07/16/16 Digoxin [Lanoxin -] 0.125 mg PO DAILY #30 tablet 07/16/16 Diltiazem [Cardizem -] 90 mg PO QID #120 tablet 07/16/16 Docusate Sodium [Colace -] 100 mg PO TID #100 capsule 07/16/16 Levetiracetam [Keppra -] 500 mg PO BID #60 tab 07/16/16 Levetiracetam [Keppra -] 500 mg PO BID #60 tablet 07/16/16 Lidocaine 5% Patch [Lidoderm -] 1 patch TP DAILY #15 patch 07/16/16 Nicotine Patch [Nicoderm Patch -] 1 patch TD DAILY #7 patch 07/16/16 Prednisone [Deltasone -] 40 mg PO DAILY #30 tablet 07/16/16 Propranolol HCl [Inderal LA -] 120 mg PO DAILY #30 cap 07/16/16 Quetiapine Fumarate [Seroquel -] 25 mg PO DAILY PRN #30 tablet 07/16/16 Quetiapine Fumarate [Seroquel -] 300 mg PO HS #30 tablet 07/16/16 Clonazepam [Klonopin -] 1 mg PO BID 08/14/16 Family Disease History - Family Disease History Family Disease History: Other: Father (ETOH DEPENDENT), Mother (HAD CVA AND ) Review of Systems - Review of Systems Constitutional: reports: No Symptoms Eyes: reports: No Symptoms HENT: reports: No Symptoms Neck: reports: No Symptoms Cardiovascular: reports: No Symptoms Respiratory: reports: No Symptoms Gastrointestinal: reports: No Symptoms Genitourinary: reports: No Symptoms Musculoskeletal: reports: No Symptoms Integumentary: reports: No Symptoms Neurological: reports: No Symptoms Endocrine: reports: No Symptoms Hematology/Lymphatic: reports: No Symptoms Psychiatric: reports: No Symptoms Physical Exam Vital Signs: Vital Signs Temperature 97.5 F L 08/28/16 14:24 Pulse Rate 92 H 08/28/16 10:20 Respiratory Rate 20 08/28/16 10:00 Blood Pressure 112/74 08/28/16 10:00 O2 Sat by Pulse Oximetry (%) 96 08/28/16 10:20 Constitutional: Yes: No Distress, Calm Eyes: Yes: Conjunctiva Clear Neck: Yes: Supple, Trachea Midline Cardiovascular: Yes: Regular Rate and Rhythm Respiratory: Yes: Regular, CTA Bilaterally Gastrointestinal: Yes: Normal Bowel Sounds, Soft Musculoskeletal: Yes: WNL Extremities: Yes: Other Integumentary: Yes: Other Neurological: Yes: Alert, Oriented Psychiatric: Yes: Alert Labs: CBC, BMP 08/28/16 07:20 Assessment/Plan Problems (1) Abnormal laboratory test Code(s): R89.9 - UNSP ABNORMAL FINDING IN SPECIMENS FROM OTH ORG/TISS (2) COPD (chronic obstructive pulmonary disease) with emphysema Code(s): J43.9 - EMPHYSEMA, UNSPECIFIED (3) Lactic acid acidosis Assessment/Plan: WNL Code(s): E87.2 - ACIDOSIS (4) Cellulitis Code(s): L03.90 - CELLULITIS, UNSPECIFIED Qualifiers: Site of cellulitis: extremity Site of cellulitis of extremity: lower extremity Laterality: left Qualified Code(s): L03.116 - Cellulitis of left lower limb (5) PVD (peripheral vascular disease) Code(s): I73.9 - PERIPHERAL VASCULAR DISEASE, UNSPECIFIED plan will not start any abx at this time await for vascular to evaluate the patient rest as per primary
--- NOTE | 2016-08-28 16:21 | PN ---
Progress Note, Physician History of Present Illness: doing well - Current Medication List Current Medications: Active Medications Aclidinium [place] (Tudorza -) 1 puff IH BID [facility] Last Admin: 08/28/16 09:51 Dose: 1 puff Albuterol Sulfate (Ventolin 0.083% Nebulizer Soln -) 1 amp NEB Q4H PRN PRN Reason: SHORT OF BREATH/WHEEZING Last Admin: 08/28/16 06:40 Dose: 1 amp Budesonide/Formoterol Fumarate (Symbicort 80/4.5mcg -) 2 puff IH BID [facility] Last Admin: 08/28/16 09:51 Dose: 2 puff Clonazepam (Klonopin -) 1 mg PO BID [facility] Last Admin: 08/28/16 09:48 Dose: 1 mg Digoxin (Lanoxin -) 0.125 mg PO DAILY [facility] Last Admin: 08/28/16 09:50 Dose: 0.125 mg Diltiazem HCl (Cardizem -) 90 mg PO QID [facility] Last Admin: 08/28/16 13:49 Dose: 90 mg Docusate Sodium (Colace -) 100 mg PO TID [facility] Last Admin: 08/28/16 13:49 Dose: 100 mg Gabapentin (Neurontin -) 300 mg PO TID [facility] Last Admin: 08/28/16 13:50 Dose: Not Given Levetiracetam (Keppra -) 500 mg PO BID [facility] Last Admin: 08/28/16 09:50 Dose: 500 mg Lidocaine (Lidoderm Patch -) 1 patch TP DAILY [facility] Last Admin: 08/28/16 09:47 Dose: 1 patch Methadone HCl 40 mg/ Methadone (HCl 20 mg/ Methadone HCl 5 mg) 65 mg PO DAILY [facility] Last Admin: 08/28/16 09:49 Dose: 65 mg Nicotine (Nicoderm Patch -) 21 mg TD DAILY [facility] Last Admin: 08/28/16 09:51 Dose: 21 mg Propranolol HCl (Inderal La -) 120 mg PO DAILY [facility] Last Admin: 08/28/16 13:48 Dose: 120 mg Quetiapine Fumarate (Seroquel -) 25 mg PO DAILY [facility] Last Admin: 08/28/16 09:51 Dose: 25 mg Rivaroxaban (Xarelto -) 20 mg PO DAILY [facility] Last Admin: 08/28/16 13:49 Dose: 20 mg - Objective Vital Signs: Vital Signs Temperature 97.5 F L 08/28/16 14:24 Pulse Rate 97 H 08/28/16 13:50 Respiratory Rate 20 08/28/16 13:50 Blood Pressure 107/71 08/28/16 13:50 O2 Sat by Pulse Oximetry (%) 96 08/28/16 10:20 Constitutional: Yes: No Distress HENT: Yes: Atraumatic Neck: Yes: Supple Cardiovascular: Yes: Regular Rate and Rhythm Respiratory: Yes: CTA Bilaterally Gastrointestinal: Yes: Normal Bowel Sounds Extremities: Yes: WNL Neurological: Yes: Alert, Oriented Labs: CBC, BMP 08/28/16 07:20 Problem List - Problems (1) Abnormal laboratory test Code(s): R89.9 - UNSP ABNORMAL FINDING IN SPECIMENS FROM OTH ORG/TISS (2) COPD (chronic obstructive pulmonary disease) with emphysema Code(s): J43.9 - EMPHYSEMA, UNSPECIFIED (3) Lactic acid acidosis Assessment/Plan: WNL Code(s): E87.2 - ACIDOSIS (4) Cellulitis Assessment/Plan: not on abx id consult Code(s): L03.90 - CELLULITIS, UNSPECIFIED Qualifiers: Site of cellulitis: extremity Site of cellulitis of extremity: lower extremity Laterality: left Qualified Code(s): L03.116 - Cellulitis of left lower limb (5) PVD (peripheral vascular disease) Assessment/Plan: l get dr mendenhall involve s/p stent left lower ext Code(s): I73.9 - PERIPHERAL VASCULAR DISEASE, UNSPECIFIED
--- NOTE | 2016-08-28 18:58 | PN ---
Progress Note (short form) - Note Progress Note: VAscular Surgery Pt seen and examined. S/P left iliac artery stent placement. Pt with palpable femoral pulse and PT pulse in foot. Cont plavix. Medical management Nilay Paniagua DO
[2016-08-29] MEDS: GABAPENTIN 300 MG CAPSULE (FP) PO SCH ×2 (06:42→14:27)
[2016-08-29] MEDS: DOCUSATE SODIUM 100 MG CAPSULE (FP) PO SCH ×2 (06:42→15:25)
[2016-08-29] MEDS ORDERED: METHADONE HCL 40 MG DISPERSABLE TABLET ONE (09:10)
[2016-08-29] MEDS ORDERED: METHADONE HCL 10 MG TABLET ONE (09:10)
[2016-08-29] MEDS ORDERED: METHADONE HCL 5 MG TABLET ONE (09:11)
[2016-08-29] MEDS ORDERED: PT OWN MED DRAWER 7, Y5N ONE ×3 (09:12→13:57)
[2016-08-29] MEDS: clonazePAM 0.5 MG TABLET PO SCH (09:17)
[2016-08-29] MEDS: ACLIDINIUM BROMIDE 400 MCG/INH AERO.POWD IH SCH (09:17)
[2016-08-29] MEDS: METHADONE 40 MG, METHADONE 20 MG, METHADONE 5 MG PO SCH (09:17)
[2016-08-29] MEDS: BUDESONIDE/FORMETEROL FUMARATE 80/4.5 mcg INHALER IH SCH (09:17)
[2016-08-29] MEDS: NICOTINE 21 MG/24 HOURS TOPICAL PATCH TD SCH (09:18)
[2016-08-29] MEDS: dilTIAZem HCL 30 MG TABLET (FP) PO SCH ×2 (09:18→14:27)
[2016-08-29] MEDS: levETIRAcetam 500 MG TABLET (FP) PO SCH (09:19)
[2016-08-29] MEDS: QUEtiapine FUMARATE 25 MG TABLET (FP) PO SCH (09:19)
[2016-08-29] MEDS: LIDOCAINE 5% TOPICAL PATCH TP SCH (09:19)
[2016-08-29] MEDS: DIGOXIN 0.125 MG TABLET (FP) PO SCH (09:19)
--- NOTE | 2016-08-29 11:44 | DS ---
Physical Examination Vital Signs: Vital Signs Temperature 98.4 F 08/29/16 05:42 Pulse Rate 88 08/29/16 09:53 Respiratory Rate 20 08/29/16 05:42 Blood Pressure 102/66 08/29/16 05:42 O2 Sat by Pulse Oximetry (%) 95 08/29/16 09:53 Constitutional: Yes: No Distress HENT: Yes: Atraumatic Neck: Yes: Supple Cardiovascular: Yes: Regular Rate and Rhythm Respiratory: Yes: CTA Bilaterally Gastrointestinal: Yes: Normal Bowel Sounds Extremities: Yes: WNL Neurological: Yes: Alert, Oriented Labs: CBC, BMP 08/28/16 07:20 Discharge Summary Reason For Visit: CELLULITIS Current Active Problems Abnormal laboratory test (Acute) Lactic acid acidosis (Acute) PVD (peripheral vascular disease) (Acute) - Instructions Diet, Activity, Other Instructions: pt is on xeralto need to see pmd 1 week - Home Medications Comprehensive Discharge Medication List: Ambulatory Orders Methadone [Dolophine -] 65 mg PO DAILY 10/19/14 Tiotropium [place] [Spiriva] 1 inh PO BID 10/19/14 Albuterol Sulfate Inhaler - [Ventolin HFA Inhaler -] 2 inh PO Q4H PRN 12/08/15 Rivaroxaban [Xarelto -] 20 mg PO DAILY 12/10/15 Fluticasone/Salmeterol [Advair 250-50 Diskus] 1 puff IN BID 07/08/16 Gabapentin [Neurontin] 300 mg PO TID 07/08/16 Albuterol 2.5/Ipratropium 0.5 [Duoneb -] 1 amp NEB Q6H PRN #30 amp 07/16/16 Digoxin [Lanoxin -] 0.125 mg PO DAILY #30 tablet 07/16/16 Diltiazem [Cardizem -] 90 mg PO QID #120 tablet 07/16/16 Docusate Sodium [Colace -] 100 mg PO TID #100 capsule 07/16/16 Levetiracetam [Keppra -] 500 mg PO BID #60 tab 07/16/16 Lidocaine 5% Patch [Lidoderm -] 1 patch TP DAILY #15 patch 07/16/16 Propranolol HCl [Inderal [place] -] 120 mg PO DAILY #30 cap 07/16/16 Quetiapine Fumarate [Seroquel -] 300 mg PO HS #30 tablet 07/16/16 Clonazepam [Klonopin -] 1 mg PO BID 08/14/16 dc
[2016-08-29] MEDS: RIVAROXABAN 20 MG TABLET PO SCH (12:30)
[2016-08-29] MEDS: ALBUTEROL SO4 0.083% IH SOL 2.5 MG/3 ML VIAL.NEB. NEB PRN (13:35)
--- NOTE | 2016-08-29 14:09 | PN ---
Progress Note, Physician History of Present Illness: patient stable no new issues vascular has evaluated the patient - Current Medication List Current Medications: Active Medications Aclidinium Humble (Tudorza -) 1 puff IH BID [facility] Last Admin: 08/29/16 09:17 Dose: 1 puff Albuterol Sulfate (Ventolin 0.083% Nebulizer Soln -) 1 amp NEB Q4H PRN PRN Reason: SHORT OF BREATH/WHEEZING Last Admin: 08/28/16 22:35 Dose: 1 amp Budesonide/Formoterol Fumarate (Symbicort 80/4.5mcg -) 2 puff IH BID [facility] Last Admin: 08/29/16 09:17 Dose: 2 puff Clonazepam (Klonopin -) 1 mg PO BID [facility] Last Admin: 08/29/16 09:17 Dose: 1 mg Digoxin (Lanoxin -) 0.125 mg PO DAILY [facility] Last Admin: 08/29/16 09:19 Dose: 0.125 mg Diltiazem HCl (Cardizem -) 90 mg PO QID [facility] Last Admin: 08/29/16 09:18 Dose: 90 mg Docusate Sodium (Colace -) 100 mg PO TID [facility] Last Admin: 08/29/16 06:42 Dose: 100 mg Gabapentin (Neurontin -) 300 mg PO TID [facility] Last Admin: 08/29/16 06:42 Dose: 300 mg Levetiracetam (Keppra -) 500 mg PO BID [facility] Last Admin: 08/29/16 09:19 Dose: 500 mg Lidocaine (Lidoderm Patch -) 1 patch TP DAILY [facility] Last Admin: 08/29/16 09:19 Dose: 1 patch Methadone HCl 40 mg/ Methadone (HCl 20 mg/ Methadone HCl 5 mg) 65 mg PO DAILY [facility] Last Admin: 08/29/16 09:17 Dose: 65 mg Nicotine (Nicoderm Patch -) 21 mg TD DAILY [facility] Last Admin: 08/29/16 09:18 Dose: 21 mg Propranolol HCl (Inderal La -) 120 mg PO DAILY [facility] Last Admin: 08/29/16 12:30 Dose: 120 mg Quetiapine Fumarate (Seroquel -) 25 mg PO DAILY [facility] Last Admin: 08/29/16 09:19 Dose: 25 mg Rivaroxaban (Xarelto -) 20 mg PO DAILY [facility] Last Admin: 08/29/16 12:30 Dose: 20 mg - Objective Vital Signs: Vital Signs Temperature 98.4 F 08/29/16 05:42 Pulse Rate 88 08/29/16 09:53 Respiratory Rate 20 08/29/16 05:42 Blood Pressure 102/66 08/29/16 05:42 O2 Sat by Pulse Oximetry (%) 95 08/29/16 09:53 Constitutional: Yes: No Distress, Calm Eyes: Yes: Conjunctiva Clear HENT: Yes: Atraumatic Neck: Yes: Supple, Trachea Midline Cardiovascular: Yes: Regular Rate and Rhythm Respiratory: Yes: Regular, CTA Bilaterally Gastrointestinal: Yes: Normal Bowel Sounds, Soft Musculoskeletal: Yes: Other Extremities: Yes: Other Neurological: Yes: Alert, Oriented Psychiatric: Yes: Alert, Oriented Labs: CBC, BMP 08/28/16 07:20 Assessment/Plan Problems (1) Abnormal laboratory test Code(s): R89.9 - UNSP ABNORMAL FINDING IN SPECIMENS FROM OTH ORG/TISS (2) COPD (chronic obstructive pulmonary disease) with emphysema Code(s): J43.9 - EMPHYSEMA, UNSPECIFIED (3) Lactic acid acidosis Assessment/Plan: WNL Code(s): E87.2 - ACIDOSIS (4) Cellulitis Code(s): L03.90 - CELLULITIS, UNSPECIFIED Qualifiers: Site of cellulitis: extremity Site of cellulitis of extremity: lower extremity Laterality: left Qualified Code(s): L03.116 - Cellulitis of left lower limb (5) PVD (peripheral vascular disease) Code(s): I73.9 - PERIPHERAL VASCULAR DISEASE, UNSPECIFIED plan continue current mgmt rest as per primary
[2016-08-29 14:57] VITALS: BP 103/60; PULSE 73; TEMP 98.6
== END 2016-08-29 18:49 | disposition home or self-care (01) ==
LOC: JER 14:09 → JERBED 17:39 → J6S 22:26
PROVIDERS: ADMIT Internal Medicine; ATTEND Internal Medicine
PROC: 3E03329 Introduction of Other Anti-infective into Peripheral Vein, Percutaneous Approach (ICD-10-PCS; principal; 2016-08-27)
PROC: 3E0F7GC Introduction of Other Therapeutic Substance into Respiratory Tract, Via Natural or Artificial Opening (ICD-10-PCS; 2016-08-27)
DX: R79.89 Other specified abnormal findings of blood chemistry (principal); I48.91 Unspecified atrial fibrillation; I10 Essential (primary) hypertension; I73.9 Peripheral vascular disease, unspecified; E78.5 Hyperlipidemia, unspecified; E87.2 Acidosis; J43.9 Emphysema, unspecified; E04.1 Nontoxic single thyroid nodule; B18.2 Chronic viral hepatitis C; F11.20 Opioid dependence, uncomplicated; F17.210 Nicotine dependence, cigarettes, uncomplicated; F41.9 Anxiety disorder, unspecified; L03.116 Cellulitis of left lower limb; M54.5 Low back pain; G89.29 Other chronic pain; Z99.81 Dependence on supplemental oxygen; Z85.118 Personal history of other malignant neoplasm of bronchus and lung; Z90.2 Acquired absence of lung [part of]; Z79.01 Long term (current) use of anticoagulants
CPT/HCPCS: 36415; 80053; 83605; 85025; 93005; 93010; 94640; 99281-25; 99285-25; G0378

== ENCOUNTER 2016-10-15 09:21 | Emergency (ER) | payer OTHER ==
--- NOTE | 2016-10-15 09:33 | PDOC ---
History of Present Illness - General History Source: Patient Exam Limitations: No Limitations - History of Present Illness Initial Comments: 10/15/16 18:31 The patient is a 66 year old female, BIBA with a significant past medical history of mental illness, COPD, RA, lung Ca, DVT, Hep C., PVD, HTN and afib ( on xarelto), who presents to the emergency department s/p fall, occurring today. The patient reports going for a methadone dose, falling right after receiving her dosage. She reports falling and landing on both of her knees. She denies any LOC or head trauma. She denies any complaints of pain. She notes about 3 days ago having another fall secondary to LE weakness, while exiting a taxi, hitting her head during the fall and has felt ok afterwards so did not seek medical treatment. The patient denies tripping over anything. She notes feeling fine this morning. She notes having bilateral LE swelling over the past couple of days with no pain in her LEs. She denies any abdominal pain, aplpitations, headache, dizzines. She denies recent fevers, chills, headache or dizziness. She denies recent nausea, vomit, diarrhea or constipation. She denies recent dysuria, frequency, urgency or hematuria. She denies recent chest pain or shortness of breath. Allergies: NKA Past surgical history: None reported. Social history: Fromer smoker (2 weeks ago was last cig). Denies EtOH use and recreational drug use. 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 Filler: <Taj Garay - Last Filed: 10/15/16 18:31> - General History Source: Patient Exam Limitations: No Limitations <Robbie Beach - Last Filed: 10/16/16 11:17> - General Stated Complaint: FALL Time Seen by Provider: 10/15/16 09:29 Past History <Taj Garay - Last Filed: 10/15/16 18:31> - Past Medical History Anemia: No Asthma: No Cancer: Yes (lung, adrenal) Cardiac Disorders: Yes (afib) CVA: No COPD: Yes (O2 DEPENDENT @ HOME) CHF: No Dementia: No Diabetes: No GI Disorders: Yes (hep c) Disorders: No HTN: Yes Hypercholesterolemia: No Kidney Stones: No Liver Disease: Yes (hep C) Psychiatric Problems: Yes (anxiety) Suicide Attempt (Hx): No Seizures: Yes Thyroid Disease: Yes (THYROID NODULES) - Surgical History Abdominal Surgery: No Appendectomy: No Cardiac Surgery: No Cholecystectomy: No Lung Surgery: Yes (LEFT UPPER LOBE LOBECTOMY IN 08/2012) Neurologic Surgery: No Orthopedic Surgery: No - Family Disease History Family Disease History: Other: Mother (non contributory) - Reproductive History PID: No - Immunization History Immunization Up to Date: Yes - Psycho/Social/Smoking Cessation Hx Anxiety: No Suicidal Ideation: No Smoking Status: No Smoking History: Current every day smoker Have you smoked in the past 12 months: Yes Number of Cigarettes Smoked Daily: 20 If you are a former smoker, when did you quit?: 03-17-13 'Breaking Loose' booklet given: 04/17/16 Hx Alcohol Use: No Drug/Substance Use Hx: Yes Substance Use Type: Heroin Hx Substance Use Treatment: Yes (METHADONE FROM CLINIC) <Robbie Beach - Last Filed: 10/16/16 11:17> - Past Medical History Allergies/Adverse Reactions: Allergies Allergy/AdvReac Type Severity Reaction Status Date / Time No Known Allergies Allergy Verified 10/15/16 09:45 Home Medications: Ambulatory Orders Methadone [Dolophine -] 65 mg PO DAILY 10/19/14 Tiotropium [place] [Spiriva] 1 inh PO BID 10/19/14 Albuterol Sulfate Inhaler - [Ventolin HFA Inhaler -] 2 inh PO Q4H PRN 12/08/15 Fluticasone/Salmeterol [Advair 250-50 Diskus] 1 puff IN BID 07/08/16 Gabapentin [Neurontin] 300 mg PO TID 07/08/16 Albuterol 2.5/Ipratropium 0.5 [Duoneb -] 1 amp NEB Q6H PRN #30 amp 07/16/16 Albuterol 2.5/Ipratropium 0.5 [Duoneb -] 1 amp NEB QIDR 30 Days 07/16/16 Digoxin [Lanoxin -] 0.125 mg PO DAILY #30 tablet 07/16/16 Diltiazem [Cardizem -] 90 mg PO QID #120 tablet 07/16/16 Docusate Sodium [Colace -] 100 mg PO TID #100 capsule 07/16/16 Levetiracetam [Keppra -] 500 mg PO BID #60 tab 07/16/16 Levetiracetam [Keppra -] 500 mg PO BID #60 tablet 07/16/16 Lidocaine 5% Patch [Lidoderm -] 1 patch TP DAILY #15 patch 07/16/16 Nicotine Patch [Nicoderm Patch -] 1 patch TD DAILY #7 patch 07/16/16 Prednisone [Deltasone -] 40 mg PO DAILY #30 tablet 07/16/16 Propranolol HCl [Inderal LA -] 120 mg PO DAILY #30 cap 07/16/16 Quetiapine Fumarate [Seroquel -] 25 mg PO DAILY PRN #30 tablet 07/16/16 Clonazepam [Klonopin -] 1 mg PO BID 08/14/16 Quetiapine Fumarate [Seroquel -] 25 mg PO HS #30 tablet 08/29/16 Rivaroxaban [Xarelto -] 20 mg PO DAILY #7 tab 08/29/16 Review of Systems - Review of Systems Able to Perform ROS?: Yes Comments:: 10/15/16 18:31 CONSTITUTIONAL: No reported: Fever, Chills, Diaphoresis, Generalized Weakness, Malaise, Loss of Appetite HEENT: No reported: Rhinorrhea, Nasal Congestion, Throat Pain, Throat Swelling, Difficulty Swallowing, Mouth Swelling, Ear Pain, Eye Pain, Visual Changes CARDIOVASCULAR: No reported: Chest Pain, Syncope, Palpitations, Irregular Heart Rate, Lightheadedness, Peripheral Edema RESPIRATORY: No reported: Cough, Shortness of Breath, SOB with Exertion, Orthopnea, Wheezing , Stridor, Hemoptysis GASTROINTESTINAL: No reported: Abdominal pain, Abdominal Distension, Nausea, Vomiting, Diarrhea, Constipation, Melena, Hematochezia GENITOURINARY: No reported: Dysuria, Frequency, Urgency, Hesitancy, Flank Pain, Genital Pain MUSCULOSKELETAL: No reported: Myalgia, Arthralgia, Joint Swelling, Back pain, Neck Pain SKIN: No reported: Rash, Itching, Pallor HEMATOLOGIC/IMMUNOLOGIC: No reported: Easy Bleeding, Easy Bruising, Lymphadenopathy, Frequent infections ENDOCRINE: No reported: Unexplained Weight Gain, Unexplained Weight Loss, Heat Intolerance , Cold Intolerance NEUROLOGIC: No reported: Headache, Focal Weakness, Paresthesias, Vertigo, Lightheadedness, Unsteady Gait, Seizure, Mental Status Changes, Incontinence PSYCHIATRIC: No reported: Anxiety, Depression <Taj Garay - Last Filed: 10/15/16 18:31> *Physical Exam - Vital Signs Last Vital Signs Temp Pulse Resp BP Pulse Ox 97 F L 69 18 105/78 100 10/15/16 09:21 10/15/16 15:09 10/15/16 15:09 10/15/16 15:09 10/15/16 09:21 - Physical Exam Comments: 10/15/16 18:31 GENERAL: The patient is awake, alert, and fully oriented, Nontoxic - in no acute distress. HEAD: Normocephalic, atraumatic. EYES: extraocular movements intact, sclera anicteric, conjunctiva clear. ENT: Normal voice, Moist mucous membranes. NECK: Normal range of motion, supple LUNGS: MIld diffuse wheezing. No rhonchi, no rales. HEART: Regular rate and rhythm, without murmur, rub or gallop. ABDOMEN: Soft, nontender, normoactive bowel sounds. No guarding, no rebound.No CVA tenderness EXTREMITIES: 1+pitting edema bilaterlly. NO calf tenderness. No homans sign. Normal ROM of her lower extremities w/o pain, no focal bony tenderness on hip/ thighs/kneses/shins/ankle/feet bl. BACK: No focal tenderness on cervical/thoracic/lumbar spine NEUROLOGICAL: No facial asymmetry, Normal speech. PSYCH: Normal mood, normal affect. SKIN: Warm, Dry, normal turgor. <Taj Garay - Last Filed: 10/15/16 18:31> Heart Score/ECG Review - ECG Impressions Comment:: 10/15/16 11:36 Twelve-lead EKG was performed and reviewed by me. There is normal sinus rhythm with a normal rate. Rate of 64 The axis is normal. The intervals are normal. There is abnormal R wave progression <Robbie Beach - Last Filed: 10/16/16 11:17> ED Treatment Course - LABORATORY CBC & Chemistry Diagram: 10/15/16 11:35 10/15/16 11:35 - ADDITIONAL ORDERS Additional order review: Laboratory Results 10/15/16 10/15/16 10/15/16 11:35 11:35 11:35 INR 1.39 H Sodium 137 Potassium 4.9 D Chloride 105 Carbon Dioxide 23 Anion Gap 9 BUN 14 D Creatinine 1.7 H D Creat Clearance w eGFR 30.26 Random Glucose 81 D Calcium 8.7 Total Bilirubin 0.8 D AST 87 H D ALT 94 H D Alkaline Phosphatase 87 D Creatine Kinase 162 Creatine Kinase Index 0.9 CK-MB (CK-2) 1.485 Troponin I < 0.02 B-Natriuretic Peptide 4492.15 H Total Protein 8.7 H Albumin 3.4 10/15/16 11:35 RBC 4.45 MCV 96.6 H MCHC 32.2 RDW 15.8 H MPV 9.5 Neutrophils % 75.1 Lymphocytes % 15.9 D Monocytes % 6.8 Eosinophils % 1.1 Basophils % 1.1 - Medications Given in the ED: ED Medications Discontinued Medications Generic Name Dose Route Start Last Admin Trade Name Gopiq PRN Reason Stop Dose Admin Acetaminophen 650 mg 10/15/16 14:43 10/15/16 14:50 Tylenol - PO 10/15/16 14:44 650 mg ONCE ONE Administration Albuterol/Ipratropium 1 amp 10/15/16 09:48 10/15/16 11:06 Duoneb - NEB 10/15/16 09:49 1 amp ONCE ONE Administration <Taj Garay - Last Filed: 10/15/16 18:31> - LABORATORY CBC & Chemistry Diagram: 10/15/16 11:35 10/15/16 11:35 <Robbie Beach - Last Filed: 10/16/16 11:17> Medical Decision Making - Medical Decision Making 10/15/16 09:47 66y F hx of afib, dvt on xeralto, hcv, opiate abuse on methadone, presents s/p fall this morning at her methadone clinic. Pt states her knees felt week and she felt on her knees, deneis any head njury today, but states 3 days ago, she bumped her head when getting out of a cab and her knees again felt weak/ there was no LOC and no associate dizziness, headache, n/v, vision chahges, numbness/ tingling/wakness. Pt does omplain of several months of SOB that seems unchnaged. On exam the pts vitals noted for hypotension (?baseline for pt), she is also noted for diffuce moderate wheezing b/l although she is speaking in complete sentences. no focal bony tenderness or limitations of ROM on exam. will ck ct head due to prior head injury and that she is on xerolto will ck basic labs to r/o anemia, metabolic dernagmenent ekg to r/o arrhthmia cxr to r/o pulmonary disease will give duoneb for symptomatic releive and reasesss A portion of this note was documented by scribe services under my direction. I have reviewed the details of the note, within reason, and agree with the documentation with the following case summary and management plan written by me 10/15/16 13:05 pts labs rviewed noted for cr of 1.7 that appears new will have pt fu with PMD for recheck of Cr will have pt continue hydration pts pulmonary exam was repeated and is normal w/o any wheezing/rales. no respiratory distress bnp slightly elevated, howver the pt is not clinicaly overloaded cxr reveals no congestoin will dc the pt with pmd fu return precautions were discussed I discussed the physical exam findings, ancillary test results and final diagnoses with the patient. I answered all of the patient's questions. The patient was satisfied with the care received and felt comfortable with the discharge plan and treatment plan. The patient will call their primary care physician within 24 hours to arrange follow-up and will return to the Emergency Department with any new, persistent or worsening symptoms. 10/15/16 14:01 ct notable for chronic left cerebellar infarct, was present in prior CTs per radiolgy <Robbie Beach - Last Filed: 10/16/16 11:17> *DC/Admit/Observation/Transfer - Attestations Scribe Attestion: 10/15/16 18:32 Documentation prepared by Taj Garay, acting as certified medical transcriptionist for Robbie Beach MD. <Taj Garay - Last Filed: 10/15/16 18:31> - Discharge Dispostion Admit: No <Robbie Beach - Last Filed: 10/16/16 11:17> Diagnosis at time of Disposition: Fall Qualifiers: Encounter type: initial encounter Qualified Code(s): W19.XXXA - Unspecified fall, initial encounter - Discharge Dispostion Disposition: HOME Condition at time of disposition: Improved - Patient Instructions Printed Discharge Instructions: How to Prevent Falls Additional Instructions: Your creatinine was slightly eelvated, please follow up with your primary care doctor to have this rechecked. Print Language: VIETNAMESE
[2016-10-15] MEDS ORDERED: ALBUTEROL SO4 2.5/IPRATROPIUM 0.5 INH SOL 3 ML VIAL.NEB. NEB ONE ×2 (09:48→11:07)
[2016-10-15 09:52] VITALS: TEMP 97; BMI 27.4
[2016-10-15 12:02] LABS: BASOPHIL 1.1 % (0-2.0); EOSINOPHIL 1.1 % (0-4.5); MCH 31.1 pg (25.7-33.7); MCHC 32.2 g/dl (32.0-36.0); MEAN CELL VOLUME 96.6 fl (80-96); MEAN PLT VOLUME 9.5 fl (7.5-11.1); NEUTROPHILS 75.1 % (42.8-82.8); PLATELET COUNT 224 K/MM3 (134-434); RDW 15.8 % (11.6-15.6); WHITE BLOOD COUNT 11.7 K/mm3 (4.0-10.0)
[2016-10-15 12:16] LABS: INR 1.39 (0.82-1.09); PROTHROMBIN TIME (PATIENT) 15.4 SEC (9.98-11.88)
[2016-10-15 12:42] LABS: ALBUMIN 3.4 g/dl (3.4-5.0); ANION GAP 9 (8-16); BILIRUBIN,TOTAL 0.8 mg/dL (0.2-1.0); CALCIUM 8.7 mg/dL (8.5-10.1); CO2 23 mmol/L (21-32); CREATININE 1.7 mg/dL (0.55-1.02); GLUCOSE,RANDOM 81 mg/dL (74-106); SGOT/AST 87 U/L (15-37); SGPT/ALT 94 U/L (12-78); TOT PROT 8.7 g/dl (6.4-8.2)
[2016-10-15 12:45] LABS: ALK PHOS 87 U/L (45-117); CPK 162 IU/L (26-192); TROPONIN I < 0.02 ng/ml (0.00-0.05)
[2016-10-15] MEDS ORDERED: ACETAMINOPHEN 325 MG TABLET (FP) PO ONE (14:43)
[2016-10-15] MEDS ORDERED: ACETAMINOPHEN 325 MG TABLET (FP) ONE (14:46)
[2016-10-15 15:10] VITALS: BP 105/78; PULSE 69
--- NOTE | 2016-10-17 16:48 | EKG ---
Test Reason : Blood Pressure : / mmHG Vent. Rate : 064 BPM Atrial Rate : 064 BPM P-R Int : 150 ms QRS Dur : 078 ms QT Int : 426 ms P-R-T Axes : 038 014 021 degrees QTc Int : 439 ms NORMAL SINUS RHYTHM CANNOT RULE OUT ANTERIOR INFARCT , AGE UNDETERMINED ABNORMAL ECG WHEN COMPARED WITH ECG OF 27-AUG-2016 19:31, SINUS RHYTHM HAS REPLACED ATRIAL FIBRILLATION VENT. RATE HAS DECREASED BY 32 BPM NONSPECIFIC T WAVE ABNORMALITY, IMPROVED IN INFERIOR LEADS T WAVE INVERSION LESS EVIDENT IN LATERAL LEADS Confirmed by EDILSON MCCOY MD ([id number]) on 10/17/2016 4:48:21 PM Referred By: Confirmed By:EDILSON MCCOY MD
== END 2016-10-15 16:30 | disposition home or self-care (01) ==
LOC: JER 09:21
PROC: 3E0F7GC Introduction of Other Therapeutic Substance into Respiratory Tract, Via Natural or Artificial Opening (ICD-10-PCS; principal; 2016-10-15)
DX: Z91.81 History of falling (principal); Y92.239 Unspecified place in hospital as the place of occurrence of the external cause; W18.39XA Other fall on same level, initial encounter; Y93.89 Activity, other specified; M06.9 Rheumatoid arthritis, unspecified; Z85.118 Personal history of other malignant neoplasm of bronchus and lung; Z86.718 Personal history of other venous thrombosis and embolism; Z79.01 Long term (current) use of anticoagulants; Z87.891 Personal history of nicotine dependence; I10 Essential (primary) hypertension; F41.9 Anxiety disorder, unspecified; B19.20 Unspecified viral hepatitis C without hepatic coma; E07.9 Disorder of thyroid, unspecified
CPT/HCPCS: 70450-TC; 71010-TC; 80053; 82553; 83880; 84484; 85025; 85610; 93005; 93010; 99283-25

== ENCOUNTER 2017-02-07 11:08 | Inpatient (IN) | payer OTHER ==
[2017-02-07] MEDS ORDERED: methylPREDNISolone NA SUCC 125 MG/2 ML VIAL IVPUSH ONE (11:46)
[2017-02-07] MEDS ORDERED: dilTIAZem HCL 50 MG/10 ML - 10 ML VIAL IVPUSH ONE ×2 (11:46→13:07)
[2017-02-07 11:47] LABS: BASOPHIL 0.6 % (0-2.0); EOSINOPHIL 0.9 % (0-4.5); MCH 29.7 pg (25.7-33.7); MCHC 32.3 g/dl (32.0-36.0); MEAN CELL VOLUME 91.8 fl (80-96); MEAN PLT VOLUME 8.5 fl (7.5-11.1); PLATELET COUNT 254 K/MM3 (134-434); RDW 17.9 % (11.6-15.6); WHITE BLOOD COUNT 15.3 K/mm3 (4.0-10.0)
--- NOTE | 2017-02-07 11:50 | PDOC ---
Attending Attestation - Resident Resident Name: AdarshjaimieelizabetMukesh - ED Attending Attestation I have performed the following: I have examined & evaluated the patient, The case was reviewed & discussed with the resident, I agree w/resident's findings & plan, Exceptions are as noted - HPI HPI: 02/07/17 11:46 66-year-old female with multiple medical problems including intrafibrillation, CHF, COPD brought in by EMS with respiratory distress, found to be in rapid atrial fibrillation and given Cardizem in the field, placed on CPAP, presents for evaluation. Symptoms have been progressive since and of last week, Dr. Lance placed the patient on steroids but she self DC after 2 days because of side effects of swelling, her respiratory issues persisted and acutely worsened today. - Physicial Exam PE: 02/07/17 11:47 Afebrile, irregular tachycardia, O2 sat 87% on room air, improves to 95% on BiPAP with 50% O2, tachypnea Speaking comfortably through BiPAP, no JVD Crackles at both bases, positive expiratory wheezing with prolonged expiration but no focally decreased breath sounds Bilateral leg edema, right worse than left with some right lower extremity erythema - Critical Care Time Total Critical Care Time: 125 Critical Care Statement: The care of this patient involved high complexity decision making to prevent further life threatening deterioration of the patient 's condition and/or to evaluate & treat vital organ system(s) failure or risk of failure. - Medical Decision Making 02/07/17 11:49 Patient seen and evaluated with the resident. I agree with the overall evaluation, assessment, and management with the following summary of visit: 66-year-old female with history of CHF, atrial fibrillation, COPD presents with worsening respiratory distress. Possible initial COPD exacerbation, noncompliance with steroids, now with atrial fibrillation with RVR and acute pulmonary edema as well. Seen immediately upon arrival, based on BiPAP and supplemental oxygen with improved symptoms Rate control with Cardizem Nebulizers, steroids, ABG Chest x-ray to rule out underlying pneumonia should have RLE doppler when more stable from respiratory perspective Admission, possible ICU pending response to interventions 02/07/17 13:08 wbc 15, recently on short course of steroids. chem wnl, trop negative, slight hypocalcemia repleted. CXR with acute process. received diltiazem with persistent RVR, will give additional dose and possibly start drip. s/p nebs/steroids, still on bipap but tachypneic with increased WOB. Awaiting ABG. 02/07/17 14:44 not hypercarbic, became more somnolent with pinpoint pupils but awoke after narcan. diltiazem drip for persistent tachycardia, seen with Dr. Lance (her foreign broadcast specialist) , agree with admission to tele. Admit to tele, Dr. Morrell called. <Yogi Onofre - Last Filed: 02/07/17 14:44> - Medical Decision Making 02/07/17 14:30 Dr. Morrell paged at the office at 14:26 requesting a call back for service admission of this patient. Dr. Morrell paged at the office at 14:45 requesting a call back for service admission of this patient. Dr. Morrell was called on her cell and a voicemail was left at 15:30 requesting a call back for service admission of this patient. Dr. Morrell was called on her cell at 16:00 and a voicemail was left at requesting a call back for service admission of this patient. 02/07/17 16:44 Dr. Morrell was called on her cell and the patient's case was discussed with Dr. Onofre. She accepts the patient for service admission. 02/07/17 17:00 Dr. Lance was paged overhead requesting a call back for doctor to doctor. 02/07/17 17:07 Dr. Lance was paged via phone answering service at this time requesting a call back for doctor to doctor consult. 02/07/17 17:23 Dr. Lance returned the call and the patient's case was discussed with Dr. Pineda. He accepts the patient to the ICU. Documentation prepared by Lyndsay Sanchez, acting as medical records clerk for Yogi Onofre MD, <Lyndsay Sanchez - Last Filed: 02/07/17 17:22> Heart Score/ECG Review #1 ECG reviewed & interpreted by me at: 11:28 02/07/17 11:48 Atrial fibrillation with rapid ventricular response at 136, nonspecific T-wave changes, no acute ST elevations. <Yogi Onofre - Last Filed: 02/07/17 14:44>
[2017-02-07] MEDS ORDERED: methylPREDNISolone NA SUCC 125 MG/2 ML VIAL ONE (11:55)
[2017-02-07] MEDS ORDERED: ALBUTEROL SO4 2.5/IPRATROPIUM 0.5 INH SOL 3 ML VIAL.NEB. NEB ONE (11:55)
[2017-02-07] MEDS ORDERED: dilTIAZem HCL 125 MG/25 ML - 25 ML VIAL ONE ×2 (11:56→15:03)
[2017-02-07] MEDS: ALBUTEROL SO4 2.5/IPRATROPIUM 0.5 INH SOL 3 ML VIAL.NEB. NEB SCH ×4 (12:07→13:23)
--- NOTE | 2017-02-07 12:10 | PDOC ---
History of Present Illness - General Chief Complaint: Shortness of Breath Stated Complaint: Shortness of Breath Time Seen by Provider: 02/07/17 11:31 - History of Present Illness Initial Comments: 02/07/17 12:10 Ms. Wiggins is a 66 yo female w/ pmh of COPD, RA, Lung ca with local reoccurance, benign adrenal mass, a-fib on xarelta, DVT, hypotension, hep. C, thyriod nodules , PVD, HTN, hypothyroidism, substance abuse brought in by EMS to ER complaining of 1 week of cough with shortness of breath. She had originally seen Pulmonoligst (Dr. Lance) on Saturday for this cough and been proscribed an oral course of steroids but says she stopped taking them when they made her "blow up like she has 3 chins." EMS reported they administered cardizem while en route for afib in the 180's. The patient denies headache and dizziness. Denies fever, chills, nausea, vomit, diarrhea and constipation. Denies dysuria, frequency, urgency and hematuria. Allergies: NKDA 02/07/17 15:55 Past History - Past Medical History Allergies/Adverse Reactions: Allergies Allergy/AdvReac Type Severity Reaction Status Date / Time No Known Allergies Allergy Verified 02/07/17 11:33 Home Medications: Ambulatory Orders Methadone [Dolophine -] 50 mg PO DAILY 10/19/14 Tiotropium [place] [Spiriva] 1 inh PO BID 10/19/14 Albuterol Sulfate Inhaler - [Ventolin HFA Inhaler -] 2 inh PO Q4H PRN 12/08/15 Gabapentin [Neurontin] 300 mg PO TID 07/08/16 Albuterol 2.5/Ipratropium 0.5 [Duoneb -] 1 amp NEB Q6H PRN #30 amp 07/16/16 Digoxin [Lanoxin -] 0.125 mg PO DAILY #30 tablet 07/16/16 Levetiracetam [Keppra -] 500 mg PO BID #60 tab 07/16/16 Propranolol HCl [Inderal LA -] 120 mg PO DAILY #30 cap 07/16/16 Rivaroxaban [Xarelto -] 20 mg PO DAILY #7 tab 08/29/16 Diltiazem [Cardizem -] 90 mg PO QID 11/24/16 Quetiapine Fumarate [Seroquel -] 300 mg PO HS 11/25/16 Rivaroxaban [Xarelto] 20 mg PO DAILY 11/25/16 Furosemide [Lasix -] 40 mg PO DAILY #14 tablet 11/28/16 Prednisone [Deltasone -] 30 mg PO DAILY #12 tablet 11/28/16 Anemia: No Asthma: No Cancer: Yes (lung, adrenal) Cardiac Disorders: Yes (afib) CVA: No COPD: Yes (O2 DEPENDENT @ HOME) CHF: No Dementia: No Diabetes: No GI Disorders: Yes (hep c) Disorders: No HTN: Yes Hypercholesterolemia: No Kidney Stones: No Liver Disease: Yes (hep C) Psychiatric Problems: Yes (anxiety) Seizures: Yes Thyroid Disease: Yes (THYROID NODULES) - Surgical History Abdominal Surgery: No Appendectomy: No Cardiac Surgery: No Cholecystectomy: No Lung Surgery: Yes (LEFT UPPER LOBE LOBECTOMY IN 08/2012) Neurologic Surgery: No Orthopedic Surgery: No - Family Disease History Family Disease History: Other: Mother (non contributory) - Reproductive History PID: No - Immunization History Immunization Up to Date: Yes - Suicide/Smoking/Psychosocial Hx Smoking Status: No Smoking History: Never smoked Have you smoked in the past 12 months: Yes Number of Cigarettes Smoked Daily: 0 If you are a former smoker, when did you quit?: 03-17-13 Information on smoking cessation initiated: No 'Breaking Loose' booklet given: 04/17/16 Hx Alcohol Use: No Drug/Substance Use Hx: No Substance Use Type: Heroin Hx Substance Use Treatment: Yes (METHADONE FROM CLINIC) Review of Systems - Review of Systems Comments:: 02/07/17 12:16 GENERAL/CONSTITUTIONAL: No fever or chills. No weakness. HEAD, EYES, EARS, NOSE AND THROAT: No change in vision. No ear pain or discharge. No sore throat. CARDIOVASCULAR: +Stabbing chest pain associated with cough as described RESPIRATORY: Cough with shortness of breath. GASTROINTESTINAL: No nausea, vomiting, diarrhea or constipation. GENITOURINARY: No dysuria, frequency, or change in urination. MUSCULOSKELETAL: No joint or muscle swelling or pain. No neck or back pain. SKIN: No rash NEUROLOGIC: No headache, vertigo, loss of consciousness, or change in strength/ sensation. ENDOCRINE: No increased thirst. No abnormal weight change HEMATOLOGIC/LYMPHATIC: No anemia, easy bleeding, or history of blood clots. ALLERGIC/IMMUNOLOGIC: No hives or skin allergy. *Physical Exam - Vital Signs Last Vital Signs Temp Pulse Resp BP Pulse Ox 98.7 F 140 H 32 H 125/99 95 02/07/17 11:36 02/07/17 11:37 02/07/17 11:36 02/07/17 11:36 02/07/17 11:37 - Physical Exam Comments: 02/07/17 12:17 GENERAL: +Currently on bipap. Awake, alert, and fully oriented HEAD: No signs of trauma, normocephalic, atraumatic EYES: +Pupils pinpoint and minimally reactive. EOMI, sclera anicteric, conjunctiva clear ENT: Auricles normal inspection, hearing grossly normal, nares patent, oropharynx clear without exudates. Moist mucosa NECK: Normal ROM, supple, no lymphadenopathy, JVD, or masses LUNGS: +Rales appreciated diffusely. HEART: +Tachycardic, irregular rhythm consistent w/ afib ABDOMEN: Soft, nontender, normoactive bowel sounds. No guarding, no rebound. No masses EXTREMITIES: Normal inspection, Normal range of motion, no edema. No clubbing or cyanosis. NEUROLOGICAL: Cranial nerves II through XII grossly intact. Normal speech, no focal sensorimotor deficits SKIN: Warm, Dry, normal turgor, no rashes or lesions noted. ED Treatment Course - LABORATORY CBC & Chemistry Diagram: 02/07/17 11:33 02/08/17 00:00 - ADDITIONAL ORDERS Additional order review: 02/07/17 11:33 RBC 4.40 MCV 91.8 MCHC 32.3 RDW 17.9 H D MPV 8.5 D Neutrophils % 76.0 Lymphocytes % 14.1 D Monocytes % 8.4 Eosinophils % 0.9 Basophils % 0.6 - Medications Given in the ED: ED Medications Discontinued Medications Generic Name Dose Route Start Last Admin Trade Name Freq PRN Reason Stop Dose Admin Diltiazem HCl 10 mg 02/07/17 11:46 02/07/17 12:00 Cardizem Injection - IVPUSH 02/07/17 11:47 10 mg ONCE ONE Administration Methylprednisolone Sodium Succinate 125 mg 02/07/17 11:46 02/07/17 12:00 Solu-Medrol - IVPUSH 02/07/17 11:47 125 mg ONCE ONE Administration Medical Decision Making - Medical Decision Making 02/07/17 14:28 Ms. Wiggins is a 66 yo female w/ pmh of COPD, RA, Lung ca with local reoccurance, benign adrenal mass, a-fib on xarelta, DVT, hypotension, hep. C, thyriod nodules , PVD, HTN, hypothyroidism, presenting for difficulty breathing. Patient was placed on bipap and given diltiazem for HR control. Patient continued to be tachy despite repeated diltiazem and had increasing somnolence - was noted to have pinpoint pupils on exam and was given 0.4mg Narcan. Patient became much more awake after this and would no longer tolerate bipap. Nasal cannula begun at 3L and diltiazem drip started for HR control. 02/07/17 15:55 Patient remains alert and oriented and is asking for her methadone. Discussed patient with Dr. Lance and will admit to telemetry for further evaluation. 02/07/17 16:48 Dr. Morrell paged at the office at 14:26 requesting a call back for service admission of this patient. Dr. Morrell paged at the office at 14:45 requesting a call back for service admission of this patient. Dr. Morrell was called on her cell and a voicemail was left at 15:30 requesting a call back for service admission of this patient. Dr. Morrell was called on her cell at 16:00 and a voicemail was left at requesting a call back for service admission of this patient. 02/07/17 16:44 Dr. Morrell was called on her cell and the patient's case was discussed with Dr. Onofre. She accepts the patient for service admission. 02/07/17 17:[address] Lance. Agrees with ICU admission as cannot control patient's HR w/ diltiazem drip at 10. *DC/Admit/Observation/Transfer Diagnosis at time of Disposition: COPD (chronic obstructive pulmonary disease) Qualifiers: COPD type: unspecified COPD Qualified Code(s): J44.9 - Chronic obstructive pulmonary disease, unspecified - Discharge Dispostion Admit: Yes - Referrals - Patient Instructions - Post Discharge Activity
[2017-02-07 12:16] LABS: INR 1.29 (0.82-1.09); PROTHROMBIN TIME (PATIENT) 14.6 SEC (9.98-11.88)
[2017-02-07 12:19] LABS: ACTIVATED PTT 28.3 SECONDS (26.9-34.4)
[2017-02-07 12:32] LABS: ALBUMIN 2.7 g/dl (3.4-5.0); ANION GAP 8 (8-16); BILIRUBIN,TOTAL 0.7 mg/dL (0.2-1.0); CALCIUM 7.7 mg/dL (8.5-10.1); CO2 26 mmol/L (21-32); GLUCOSE,RANDOM 166 mg/dL (74-106); SGPT/ALT 26 U/L (12-78); TOT PROT 7.2 g/dl (6.4-8.2)
[2017-02-07 12:35] LABS: ALK PHOS 64 U/L (45-117); CPK 179 IU/L (26-192); TROPONIN I < 0.02 ng/ml (0.00-0.05)
[2017-02-07 13:04] LABS: MAGNESIUM 2.5 mg/dL (1.8-2.4); SGOT/AST 21 U/L (15-37)
[2017-02-07] MEDS ORDERED: CALCIUM GLUCONATE 10% - 1,000 MG/10 ML VIAL IVPB ONE (13:05)
[2017-02-07] MEDS ORDERED: CALCIUM GLUCONATE 10% - 1,000 MG/10 ML VIAL ONE (13:11)
[2017-02-07 13:43] LABS: ARTERIAL BLD GAS O2 SATURATION 97.1 % (90-98.9); ARTERIAL BLOOD GAS BASE EXCESS 2.6 meq/l (-2-2); ARTERIAL BLOOD GAS HCO3 28.7 meq/L (22-26); ARTERIAL BLOOD GAS PO2 96.6 mmHg (80-100); ARTERIAL BLOOD GAS pH 7.35 (7.35-7.45)
[2017-02-07 13:44] LABS: ALLENS TEST POSITIVE; ART PUNCT SITE LEFT RADIAL; PT. ON O2? YES
[2017-02-07 13:45] LABS: LPM/O2% 50%; MECH. VENT. BIPAP; TYPE OF O2 BIPAP; VENT RATE 14
[2017-02-07] MEDS ORDERED: METOCLOPRAMIDE HCL INJECTION 10 MG/2 ML VIAL IVPUSH ONE (14:27)
[2017-02-07] MEDS ORDERED: NALOXONE HCL 0.4 MG/ML VIAL IVPUSH ONE (14:32)
[2017-02-07] MEDS ORDERED: METOCLOPRAMIDE HCL INJECTION 10 MG/2 ML VIAL ONE (15:03)
[2017-02-07] MEDS ORDERED: dilTIAZem HCL 50 MG/10 ML - 10 ML VIAL ONE (15:03)
[2017-02-07] MEDS: DILTIAZEM INJECTION 125 MG in DEXTROSE 5%-WATER - 100 ML IVPB SCH (15:20)
--- NOTE | 2017-02-07 15:25 | EKG ---
Test Reason : Blood Pressure : / mmHG Vent. Rate : 136 BPM Atrial Rate : 366 BPM P-R Int : 000 ms QRS Dur : 078 ms QT Int : 340 ms P-R-T Axes : 000 020 018 degrees QTc Int : 511 ms ATRIAL FLUTTER WITH VARIABLE A-V BLOCK CANNOT RULE OUT ANTERIOR INFARCT , AGE UNDETERMINED ABNORMAL ECG WHEN COMPARED WITH ECG OF 24-NOV-2016 20:13, ATRIAL FLUTTER HAS REPLACED ATRIAL FIBRILLATION Confirmed by PATRIA SAMUELS, PAWEL ([id number]) on 02/07/2017 3:25:16 PM Referred By: Confirmed By:PAWEL ESPAÑA MD
--- NOTE | 2017-02-07 15:31 | CON.PULM ---
Consult Consult Specialty:: PULMONARY Referred by:: Dr. Arellano Reason for Consultation:: shortness of breath - History of Present Illness Chief Complaint: shortness of breath History of Present Illness: 66yo female with h/o HTN, COPD, h/o lung ca s/p resection, Buerger's disease, atrial fibrillation on anticoagulation, Hep C, methadone maintenance who presents with worsening shortness of breath. I saw her in my office last week with similar complaints where she had similar complaints including shortness of breath, cough and wheezing. Prescribed her prednisone but she only took them for 2 days because she states she became too swollen. No fevers or chills. Still smoking. - History Source History Provided By: Patient, Medical Record Limitations to Obtaining History: Clinical Condition - Past Medical History Cardio/Vascular: Yes: AFIB, HTN, Hyperlipdemia Pulmonary: Yes: COPD Gastrointestinal: Yes: Other (HEP C) Hepatobiliary: Yes: Hepatitis C Infectious Disease: Yes: Other (recent hx of admission to the hosp for pneumonia ) Psych: Yes: Addictions (WAS ON 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), Anxiety Musculoskeletal: Yes: Chronic low back pain Endocrine: Yes: Other (benign adrenal nodule s/p bx) - Alcohol/Substance Use Hx Alcohol Use: No History of Substance Use: reports: None - Smoking History Smoking history: Never smoked Have you smoked in the past 12 months: Yes Aproximately how many cigarettes per day: 0 If you are a former smoker, when did you quit?: 03-17-13 - Social History Usual Living Arrangement: Alone (considered w/a terminally ill condition which enables her get the single room she is currently in.) History of Recent Travel: No Home Medications - Allergies Allergies/Adverse Reactions: Allergies Allergy/AdvReac Type Severity Reaction Status Date / Time No Known Allergies Allergy Verified 02/07/17 11:33 - Home Medications Home Medications: Ambulatory Orders Methadone [Dolophine -] 50 mg PO DAILY 10/19/14 Tiotropium [place] [Spiriva] 1 inh PO BID 10/19/14 Albuterol Sulfate Inhaler - [Ventolin HFA Inhaler -] 2 inh PO Q4H PRN 12/08/15 Gabapentin [Neurontin] 300 mg PO TID 07/08/16 Albuterol 2.5/Ipratropium 0.5 [Duoneb -] 1 amp NEB Q6H PRN #30 amp 07/16/16 Digoxin [Lanoxin -] 0.125 mg PO DAILY #30 tablet 07/16/16 Levetiracetam [Keppra -] 500 mg PO BID #60 tab 07/16/16 Propranolol HCl [Inderal LA -] 120 mg PO DAILY #30 cap 07/16/16 Rivaroxaban [Xarelto -] 20 mg PO DAILY #7 tab 08/29/16 Diltiazem [Cardizem -] 90 mg PO QID 11/24/16 Quetiapine Fumarate [Seroquel -] 300 mg PO HS 11/25/16 Rivaroxaban [Xarelto] 20 mg PO DAILY 11/25/16 Furosemide [Lasix -] 40 mg PO DAILY #14 tablet 11/28/16 Prednisone [Deltasone -] 30 mg PO DAILY #12 tablet 11/28/16 Family Disease History - Family Disease History Family Disease History: Other: Father (ETOH DEPENDENT), Mother (HAD CVA AND ) Review of Systems - Review of Systems Constitutional: denies: Chills, Fever Eyes: denies: Recent Change in Vision HENT: denies: Nasal Congestion, Throat Pain Neck: denies: Stiffness, Tenderness Cardiovascular: reports: Edema, Shortness of Breath. denies: Chest Pain, Palpitations Respiratory: reports: Cough, Exercise Intolerance, SOB on Exertion, Wheezing. denies: Hemoptysis Gastrointestinal: denies: Abdominal Pain, Nausea, Vomiting Genitourinary: denies: Dysuria, Hematuria Neurological: denies: Dizziness, Headache Physical Exam Vital Sings: Vital Signs Temperature 98.7 F 02/07/17 11:36 Pulse Rate 120 H 02/07/17 13:45 Respiratory Rate 22 02/07/17 13:45 Blood Pressure 98/72 02/07/17 13:45 O2 Sat by Pulse Oximetry (%) 97 02/07/17 13:46 Constitutional: Yes: Mild Distress Eyes: Yes: Conjunctiva Clear, EOM Intact HENT: Yes: Atraumatic, Normocephalic Neck: Yes: Supple, Trachea Midline Cardiovascular: Yes: Tachycardia, Pulse Irregular Respiratory: Yes: Poor Air Entry, Rhonchi, Wheezes ...Clubbing: No Gastrointestinal: Yes: Normal Bowel Sounds, Soft. No: Tenderness Edema: No Labs: CBC, BMP 02/07/17 11:33 12/07/17 11:33 ABG Results ABG pH 7.35 (7.35-7.45) 02/07/17 13:40 ABG pCO2 at Pt Temp 53.2 mmHg (35-45) H 02/07/17 13:40 ABG pO2 at Pt Temp 96.6 mmHg (80-100) D 02/07/17 13:40 ABG HCO3 28.7 meq/L (22-26) H 02/07/17 13:40 ABG O2 Sat (Measured) 97.1 % (90-98.9) 02/07/17 13:40 ABG O2 Content 16.6 % vol (15-22) 02/07/17 13:40 ABG Base Excess 2.6 meq/l (-2-2) H 02/07/17 13:40 Imaging - Results Chest X-ray: Report Reviewed, Image Reviewed (elevated left diaphragm, KARINA clips ) Problem List - Problems (1) Acute exacerbation of chronic obstructive pulmonary disease Code(s): J44.1 - CHRONIC OBSTRUCTIVE PULMONARY DISEASE W (ACUTE) EXACERBATION (2) Rapid atrial fibrillation Code(s): I48.91 - UNSPECIFIED ATRIAL FIBRILLATION (3) Hypothyroidism Code(s): E03.9 - HYPOTHYROIDISM, UNSPECIFIED (4) Hypertension Code(s): I10 - ESSENTIAL (PRIMARY) HYPERTENSION (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 Assessment/Plan Acute COPD Exacerbation Atrial Fibrillation with RVR Buerger Disease HTN Hypothyroidism Anxiety Smoker Methadone Maintenance - IV medrol - inhaled bronchodilators - O2 to keep Spo2 >90% - rate control - continue anticoagulation - smoking cessation
[2017-02-07] MEDS ORDERED: SODIUM CHLORIDE 500 ML IV ONE (15:38)
[2017-02-07] MEDS ORDERED: methylPREDNISolone NA SUCC 40 MG/1 ML VIAL ONE (18:12)
[2017-02-07] MEDS: methylPREDNISolone NA SUCC 40 MG/1 ML VIAL IVPUSH SCH (18:16)
[2017-02-07] MEDS: ALBUTEROL SO4 2.5/IPRATROPIUM 0.5 INH SOL 3 ML VIAL.NEB. NEB PRN ×2 (18:17→23:13)
[2017-02-07] MEDS ORDERED: HYDROmorphone HCL CARPU-JECT 1 MG/1 ML DISP.SYRIN IVPUSH ONE (18:25)
[2017-02-07] MEDS ORDERED: HYDROmorphone HCL CARPU-JECT 1 MG/1 ML DISP.SYRIN ONE (18:47)
--- NOTE | 2017-02-07 22:18 | HP ---
Admitting History and Physical - Primary Care Physician PCP: Marianne Morrell - Admission History of Present Illness: 66 yo female w/ pmh of COPD, RA, Lung ca with local reoccurance, benign adrenal mass, a-fib on xarelta, DVT, hypotension, hep. C, thyriod nodules, PVD, HTN, hypothyroidism, substance abuse brought in by EMS to ER complaining of 1 week of cough with shortness of breath. She had originally seen Pulmonoligst (Dr. Lance ) on Saturday for this cough and been proscribed an oral course of steroids but says she stopped taking them when they made her "blow up like she has 3 chins." EMS reported they administered cardizem while en route for afib in the 's. 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), Anxiety Musculoskeletal: Yes: Chronic low back pain Endocrine: Yes: Other (benign adrenal nodule s/p bx) - Smoking History Smoking history: Never smoked Have you smoked in the past 12 months: Yes Aproximately how many cigarettes per day: 0 If you are a former smoker, when did you quit?: 03-17-13 - Alcohol/Substance Use Hx Alcohol Use: No History of Substance Use: reports: None - Social History History of Recent Travel: No Home Medications - Allergies Allergies/Adverse Reactions: Allergies Allergy/AdvReac Type Severity Reaction Status Date / Time No Known Allergies Allergy Verified 02/07/17 11:33 - Home Medications Home Medications: Ambulatory Orders Methadone [Dolophine -] 50 mg PO DAILY 10/19/14 Tiotropium [place] [Spiriva] 1 inh PO BID 10/19/14 Albuterol Sulfate Inhaler - [Ventolin HFA Inhaler -] 2 inh PO Q4H PRN 12/08/15 Gabapentin [Neurontin] 300 mg PO TID 07/08/16 Albuterol 2.5/Ipratropium 0.5 [Duoneb -] 1 amp NEB Q6H PRN #30 amp 07/16/16 Digoxin [Lanoxin -] 0.125 mg PO DAILY #30 tablet 05/15/17 Levetiracetam [Keppra -] 500 mg PO BID #60 tab 07/16/16 Propranolol HCl [Inderal [place] -] 120 mg PO DAILY #30 cap 07/16/16 Rivaroxaban [Xarelto -] 20 mg PO DAILY #7 tab 08/29/16 Diltiazem [Cardizem -] 90 mg PO QID 11/24/16 Quetiapine Fumarate [Seroquel -] 300 mg PO HS 11/25/16 Rivaroxaban [Xarelto] 20 mg PO DAILY 11/25/16 Furosemide [Lasix -] 40 mg PO DAILY #14 tablet 11/28/16 Prednisone [Deltasone -] 30 mg PO DAILY #12 tablet 11/28/16 Family Disease History - Family Disease History Family Disease History: Other: Father (ETOH DEPENDENT), Mother (HAD CVA AND ) Physical Examination Vital Signs: Vital Signs Temperature 98.7 F 02/07/17 11:36 Pulse Rate 142 H 02/07/17 19:03 Respiratory Rate 24 02/07/17 19:02 Blood Pressure 100/80 02/07/17 19:03 O2 Sat by Pulse Oximetry (%) 97 02/07/17 19:02 Constitutional: Yes: Anxious HENT: Yes: Atraumatic Neck: Yes: Supple Cardiovascular: Yes: Regular Rate and Rhythm Respiratory: Yes: CTA Bilaterally Gastrointestinal: Yes: Normal Bowel Sounds Extremities: Yes: WNL Neurological: Yes: Alert, Oriented Labs: CBC, BMP 02/07/17 11:33 02/07/17 11:33 Problem List - Problems (1) Acute exacerbation of chronic obstructive pulmonary disease Assessment/Plan: on duo nebs' iv steroids Code(s): J44.1 - CHRONIC OBSTRUCTIVE PULMONARY DISEASE W (ACUTE) EXACERBATION (2) Hypothyroidism Assessment/Plan: on meds Code(s): E03.9 - HYPOTHYROIDISM, UNSPECIFIED (3) Methadone maintenance therapy patient Assessment/Plan: will continue Code(s): F11.20 - OPIOID DEPENDENCE, UNCOMPLICATED (4) Smoker Assessment/Plan: on nicotine patch Code(s): F17.200 - NICOTINE DEPENDENCE, UNSPECIFIED, UNCOMPLICATED (5) A-fib Assessment/Plan: on meds monitor cardiology consult Code(s): I48.91 - UNSPECIFIED ATRIAL FIBRILLATION Qualifiers: Atrial fibrillation type: chronic Qualified Code(s): I48.2 - Chronic atrial fibrillation (6) Anxiety Assessment/Plan: on klonopin Code(s): F41.9 - ANXIETY DISORDER, UNSPECIFIED (7) Hypertension Assessment/Plan: on meds stable Code(s): I10 - ESSENTIAL (PRIMARY) HYPERTENSION Assessment/Plan Laboratory Tests 02/07/17 02/07/17 02/07/17 11:33 11:33 11:33 WBC 15.3 H D RBC 4.40 Hgb 13.1 Hct 40.4 MCV 91.8 MCH 29.7 MCHC 32.3 RDW 17.9 H D Plt Count 254 MPV 8.5 D Neutrophils % 76.0 Lymphocytes % 14.1 D Monocytes % 8.4 Eosinophils % 0.9 Basophils % 0.6 PT with INR 14.60 H INR 1.29 H PTT (Actin FS) 28.3 Puncture Site ABG pH ABG pCO2 at Pt Temp ABG pO2 at Pt Temp ABG HCO3 ABG O2 Sat (Measured) ABG O2 Content ABG Base Excess Samir Test O2 Delivery Device Oxygen Flow Rate Vent Mode Vent Rate Mechanical Rate PEEP Pressure Support Vent Sodium 137 Potassium 4.1 Chloride 103 Carbon Dioxide 26 Anion Gap 8 BUN 13 D Creatinine 1.0 D Creat Clearance w eGFR 55.82 Random Glucose 166 H D Calcium 7.7 L Magnesium 2.5 H Total Bilirubin 0.7 D AST 21 D ALT 26 D Alkaline Phosphatase 64 Creatine Kinase 179 Creatine Kinase Index 1.4 CK-MB (CK-2) 2.609 Troponin I < 0.02 B-Natriuretic Peptide 4214.40 H Total Protein 7.2 Albumin 2.7 L 02/07/17 13:40 WBC RBC Hgb Hct MCV MCH MCHC RDW Plt Count MPV Neutrophils % Lymphocytes % Monocytes % Eosinophils % Basophils % PT with INR INR PTT (Actin FS) Puncture Site Left radial ABG pH 7.35 ABG pCO2 at Pt Temp 53.2 H ABG pO2 at Pt Temp 96.6 D ABG HCO3 28.7 H ABG O2 Sat (Measured) 97.1 ABG O2 Content 16.6 ABG Base Excess 2.6 H Samir Test Positive O2 Delivery Device Bipap Oxygen Flow Rate 50% Vent Mode S/t Vent Rate 14 Mechanical Rate Bipap PEEP 0.0 Pressure Support Vent 12/6 Sodium Potassium Chloride Carbon Dioxide Anion Gap BUN Creatinine Creat Clearance w eGFR Random Glucose Calcium Magnesium Total Bilirubin AST ALT Alkaline Phosphatase Creatine Kinase Creatine Kinase Index CK-MB (CK-2) Troponin I B-Natriuretic Peptide Total Protein Albumin Active Medications Generic Name Dose Route Start Last Admin Trade Name Freq PRN Reason Stop Dose Admin Albuterol/Ipratropium 1 amp 02/14/17 12:00 02/14/17 18:00 Duoneb - NEB 1 amp Q4H LORRIE Administration Clonazepam 1 mg 02/13/17 06:00 02/14/17 13:32 Klonopin - PO 1 mg TID LORRIE Administration Digoxin 0.125 mg 02/13/17 10:00 02/14/17 09:41 Lanoxin - PO 0.125 mg DAILY LORRIE Administration Diltiazem HCl 10 mg 02/14/17 03:18 02/14/17 03:47 Cardizem Injection - IVPUSH 10 mg Q4H PRN Administration HR SUSTAINING > 130 Diltiazem HCl 360 mg 02/14/17 10:00 02/14/17 09:41 Cardizem Cd - PO 360 mg DAILY LORRIE Administration Furosemide 40 mg 02/13/17 10:00 02/14/17 09:42 Lasix Injection - IVPUSH 40 mg DAILY LORRIE Administration Gabapentin 300 mg 02/13/17 06:00 02/14/17 13:31 Neurontin - PO 300 mg TID LORRIE Administration Guaifenesin/Codeine Phosphate 5 ml 02/13/17 02:33 02/13/17 21:11 Robitussin Ac - PO 5 ml TID PRN Administration COUGH Haloperidol 2 mg 02/14/17 19:29 Haldol Injection (Fast Acting) - IM BID PRN AGITATION Ibuprofen 600 mg 02/13/17 02:33 02/14/17 20:21 Motrin - PO 600 mg Q6H PRN Administration FEVER Levetiracetam 500 mg 02/13/17 10:00 02/14/17 09:41 Keppra - PO 500 mg BID LORRIE Administration Methadone HCl 40 mg/ Methadone 50 mg 02/13/17 06:00 02/14/17 06:06 HCl 10 mg PO 50 mg DAILY@0600 LORRIE Administration Methylprednisolone Sodium Succinate 40 mg 02/14/17 11:56 02/14/17 17:23 Solu-Medrol - IVPUSH 40 mg Q8H-IV LORRIE Administration Nicotine 21 mg 02/13/17 10:00 02/14/17 09:42 Nicoderm Patch - TD 21 mg DAILY LORRIE Administration Nystatin 500,000 units 02/13/17 12:00 02/14/17 17:11 Nystatin Oral Suspension - PO 500,000 units Q6HPO LORRIE Administration Oxycodone HCl 5 mg 02/13/17 02:33 02/14/17 01:02 Roxicodone - PO 5 mg Q6H PRN Administration PAIN Quetiapine Fumarate 100 mg/ 300 mg 02/13/17 22:00 02/13/17 21:12 Quetiapine Fumarate 200 mg PO 300 mg HS LORRIE Administration Rivaroxaban 20 mg 02/13/17 10:00 02/14/17 09:42 Xarelto - PO 20 mg DAILY LORRIE Administration
[2017-02-07] MEDS ORDERED: ALBUTEROL SO4 2.5/IPRATROPIUM 0.5 INH SOL 3 ML VIAL.NEB. NEB PRN (22:22)
[2017-02-07] MEDS: levETIRAcetam 500 MG TABLET (FP) PO SCH (23:55)
[2017-02-07] MEDS: QUETIAPINE FUMARATE PO SCH (23:55)
[2017-02-07] MEDS: GABAPENTIN 300 MG CAPSULE (FP) PO SCH (23:55)
[2017-02-07] MEDS: clonazePAM 0.5 MG TABLET PO PRN (23:56)
[2017-02-08 01:22] LABS: ALBUMIN 2.9 g/dl (3.4-5.0); BILIRUBIN,TOTAL 0.5 mg/dL (0.2-1.0); CALCIUM 8.7 mg/dL (8.5-10.1); CO2 27 mmol/L (21-32); GLUCOSE,RANDOM 239 mg/dL (74-106); SGPT/ALT 24 U/L (12-78); TOT PROT 7.6 g/dl (6.4-8.2)
[2017-02-08 01:23] LABS: ALK PHOS 63 U/L (45-117)
[2017-02-08 01:34] LABS: CPK 111 IU/L (26-192)
[2017-02-08 01:35] LABS: TROPONIN I < 0.02 ng/ml (0.00-0.05)
[2017-02-08 01:41] LABS: ANION GAP 10 (8-16)
[2017-02-08 01:45] LABS: SGOT/AST 17 U/L (15-37)
[2017-02-08] MEDS: methylPREDNISolone NA SUCC 40 MG/1 ML VIAL IVPUSH SCH ×3 (02:54→17:21)
[2017-02-08 07:24] LABS: BASOPHIL 0.2 % (0-2.0); EOSINOPHIL 0.3 % (0-4.5); MCH 30.2 pg (25.7-33.7); MCHC 32.6 g/dl (32.0-36.0); MEAN CELL VOLUME 92.9 fl (80-96); MEAN PLT VOLUME 9.6 fl (7.5-11.1); NEUTROPHILS 92.4 % (42.8-82.8); PLATELET COUNT 203 K/MM3 (134-434); RDW 17.7 % (11.6-15.6); WHITE BLOOD COUNT 15.4 K/mm3 (4.0-10.0)
[2017-02-08 07:45] VITALS: BMI 35.9
[2017-02-08] MEDS: DIGOXIN 0.125 MG TABLET (FP) PO SCH (09:25)
[2017-02-08] MEDS: FUROSEMIDE 40 MG TABLET (FP) PO SCH (09:25)
[2017-02-08] MEDS: RIVAROXABAN 20 MG TABLET PO SCH (09:25)
[2017-02-08] MEDS: levETIRAcetam 500 MG TABLET (FP) PO SCH ×2 (09:26→21:36)
[2017-02-08] MEDS: clonazePAM 0.5 MG TABLET PO PRN (09:36)
[2017-02-08] MEDS: METHADONE HCL 10 MG TABLET PO SCH (10:16)
[2017-02-08] MEDS: GABAPENTIN 300 MG CAPSULE (FP) PO SCH ×3 (13:32→21:36)
[2017-02-08] MEDS: DILTIAZEM INJECTION 125 MG in DEXTROSE 5%-WATER - 100 ML IVPB SCH (14:30)
--- NOTE | 2017-02-08 14:40 | CON.CARD ---
Cardiology Consult (text) - Consultation Consultation Note: CC: afib/sob 66 yo smoker with h/o pafib on xarelto, htn, prior pe, copd, anxiety, lung cancer resected August 2012 at [facility] (no h/o of RT or chemo), polysubstance abuse on methadone maintenance , RA, Hep C, thyroid nodules, buergers disaese who p/w worsening sob and afib with rvr. Recently with cough and sob for which she was prescribed prednisone. States the prednisone caused diffuse edema/weight gain and she self-discontinued. In ER patient was placed on bibap. Was given a dose of narcan when she became lethargic. HR was not controlled with diltiazem IV pushes --> started on diltiazem drip. On floor HR at baseline in the 100's but frequently rises to 120's during frequent moments of agitation/frustration. Patient visibly upset and agitated during exam. Is concerned that she is not receiving her home pain, anxiety and sleep medications on time. She states her sob has not improved. Has associated chest tightness. + cough persists. + palps when in RVR on presentation. + le edema. Adherence to medications is unclear. No dizzy, loc, pnd, orthopnea, bleeding or transient neurologic symptoms. Has seen Dr. Chung in office in past for cardiology. pmh/pshx: per hpi fam: no premature cad or scd social: current smoker ros: per hpi; no fever, nvd, abd pain, nasal congestion, LARA, vision changes. chronic skin lesions of le. Ambulatory Orders Methadone [Dolophine -] 50 mg PO DAILY 10/19/14 Tiotropium [place] [Spiriva] 1 inh PO BID 10/19/14 Albuterol Sulfate Inhaler - [Ventolin HFA Inhaler -] 2 inh PO Q4H PRN 12/08/15 Gabapentin [Neurontin] 300 mg PO TID 07/08/16 Albuterol 2.5/Ipratropium 0.5 [Duoneb -] 1 amp NEB Q6H PRN #30 amp 07/16/16 Digoxin [Lanoxin -] 0.125 mg PO DAILY #30 tablet 07/16/16 Levetiracetam [Keppra -] 500 mg PO BID #60 tab 07/16/16 Propranolol HCl [Inderal LA -] 120 mg PO DAILY #30 cap 07/16/16 Rivaroxaban [Xarelto -] 20 mg PO DAILY #7 tab 08/29/16 Diltiazem [Cardizem -] 90 mg PO QID 11/24/16 Quetiapine Fumarate [Seroquel -] 300 mg PO HS 11/25/16 Rivaroxaban [Xarelto] 20 mg PO DAILY 11/25/16 Furosemide [Lasix -] 40 mg PO DAILY #14 tablet 11/28/16 Prednisone [Deltasone -] 30 mg PO DAILY #12 tablet 11/28/16 Current Medications Albuterol/Ipratropium (Duoneb -) 1 amp NEB Q4H PRN PRN Reason: SHORTNESS OF BREATH Last Admin: 02/07/17 23:13 Dose: 1 amp Albuterol/Ipratropium (Duoneb -) 1 amp NEB Q6H PRN PRN Reason: SHORTNESS OF BREATH Clonazepam (Klonopin -) 0.5 mg PO BID PRN PRN Reason: ANXIETY Last Admin: 02/08/17 09:36 Dose: 0.5 mg Digoxin (Lanoxin -) 0.125 mg PO DAILY [facility] Last Admin: 02/08/17 09:25 Dose: 0.125 mg Furosemide (Lasix -) 40 mg PO DAILY [facility] Last Admin: 02/08/17 09:25 Dose: 40 mg Gabapentin (Neurontin -) 300 mg PO TID [facility] Last Admin: 02/08/17 13:32 Dose: 300 mg Diltiazem HCl 125 mg/ Dextrose 125 mls @ 5 mls/hr IVPB TITR [facility]; 5 MG/HR PRN Reason: Protocol Last Titration: 02/07/17 22:00 Dose: 15 mg/hr, 15 mls/hr Levetiracetam (Keppra -) 500 mg PO BID [facility] Last Admin: 02/08/17 09:26 Dose: 500 mg Methadone HCl (Dolophine -) 50 mg PO DAILY [facility] Last Admin: 02/08/17 10:16 Dose: 50 mg Methylprednisolone Sodium Succinate (Solu-Medrol -) 40 mg IVPUSH Q8H-IV [facility] Last Admin: 02/08/17 09:26 Dose: 40 mg Quetiapine Fumarate 100 mg/ (Quetiapine Fumarate 200 mg) 300 mg PO HS [facility] Last Admin: 02/07/17 23:55 Dose: 300 mg Rivaroxaban (Xarelto -) 20 mg PO DAILY [facility] Last Admin: 02/08/17 09:25 Dose: 20 mg Vital Signs - 24 hr 02/07/17 02/07/17 02/07/17 15:20 15:40 16:00 Temperature Pulse Rate 166 H Pulse Rate [ 166 H 147 H 143 H Apical] Respiratory 28 H 22 22 Rate Blood Pressure 108/79 Blood Pressure 108/79 110/70 98/69 [Left Arm] O2 Sat by Pulse 89 L 94 L 94 L Oximetry (%) 02/07/17 02/07/17 02/07/17 16:19 16:40 17:20 Temperature Pulse Rate 145 H Pulse Rate [ 145 H 138 H 136 H Apical] Respiratory 22 22 24 Rate Blood Pressure 112/91 Blood Pressure 112/91 91/71 117/101 [Left Arm] O2 Sat by Pulse 94 L 94 L 94 L Oximetry (%) 02/07/17 02/07/17 02/07/17 17:40 18:19 19:02 Temperature Pulse Rate 126 H Pulse Rate [ 127 H 126 H 142 H Apical] Respiratory 24 22 24 Rate Blood Pressure 108/80 Blood Pressure 97/70 108/80 100/80 [Left Arm] O2 Sat by Pulse 97 97 97 Oximetry (%) 02/07/17 02/07/17 02/07/17 19:03 22:00 22:30 Temperature 98.0 F Pulse Rate 142 H 140 H 140 H Pulse Rate [ Apical] Respiratory 24 Rate Blood Pressure 100/80 106/60 140/86 Blood Pressure [Left Arm] O2 Sat by Pulse Oximetry (%) 02/07/17 02/08/17 02/08/17 23:00 00:00 01:00 Temperature 98.2 F Pulse Rate 134 H 128 H 106 H Pulse Rate [ Apical] Respiratory 20 22 20 Rate Blood Pressure 106/60 118/68 102/68 Blood Pressure [Left Arm] O2 Sat by Pulse 96 Oximetry (%) 02/08/17 02/08/17 02/08/17 05:00 09:25 10:00 Temperature 97.8 F 98.7 F Pulse Rate 98 H 114 H 114 H Pulse Rate [ Apical] Respiratory 20 24 Rate Blood Pressure 112/60 107/65 Blood Pressure [Left Arm] O2 Sat by Pulse Oximetry (%) 02/08/17 10:51 Temperature Pulse Rate Pulse Rate [ Apical] Respiratory Rate Blood Pressure Blood Pressure [Left Arm] O2 Sat by Pulse 98 Oximetry (%) Intake & Output 02/06/17 02/07/17 02/08/17 02/09/17 07:59 07:59 07:59 07:59 Intake Total 150 Balance 150 Weight 196 lb 6.4 oz agitated, conversational dyspnea jvd flat, neck supple diminished air mov't, nl effort tachycardic, irregular nl s1, s2 no mrg + bs soft nt nd trace edema. no cyanosis, clubbing. + dp/pt no carotid bruits no jaundice, diaphoresis. aaox3 CBC, BMP 02/08/17 05:05 02/08/17 00:00 Laboratory Tests 11/24/16 02/07/17 02/08/17 21:15 11:33 00:00 Magnesium 2.5 H Total Bilirubin 0.5 D AST 17 ALT 24 Alkaline Phosphatase 63 Troponin I < 0.02 B-Natriuretic Peptide 6296.87 H 4214.40 H Albumin 2.9 L 02/08/17 00:00 Magnesium Total Bilirubin AST ALT Alkaline Phosphatase Troponin I < 0.02 B-Natriuretic Peptide Albumin 02/07/17 13:40 ABG pH 7.35 ABG pCO2 at Pt Temp 53.2 H ABG pO2 at Pt Temp 96.6 D O2 Delivery Device Bipap EKG: afib/flutter with RVR, 136 bpm. poor r wave progression tele: afib rates 100's with frequent breakthrough RVR into the 120's. echo 11/2016: tds; low nl lvef, nl rv, alla, mild-mod mr/tr, Echo 07/2016: nl lv/rv. 1+ lae, 1+ mr/tr CXR here with increased interstitial markings c/w chronic lung disease, but can' t exclude mild congestion. similar to priors. a/p: 66 yo smoker with h/o pafib on xarelto, htn, prior pe, copd, anxiety, lung cancer resected August 2012 at [facility] (no h/o of RT or chemo), polysubstance abuse on methadone maintenance , RA, Hep C, thyroid nodules, buergers disaese who p/w worsening sob and afib with rvr. atrial fibrillation -CHADS VASC 2--has been maintained on AC (xarelto at home), with h/o PE noted. -see notes from prior admits--mult attempts made to coordinate pt's care with her PMD and have her f/u with us in office to minimize risks of tachy-CMP or falls/ICH on AC, but she has been non-compliant. (AC continued due to VTEs hx previously and need for indefinite AC per prior evaluations. hence not a candidate for [place] appendage closure/Watchman) - currently still with frequent breakthrough RVR to 120's with episodes of frequent agitation/frustration. Will plan on transitioning from diltiazem drip to po diltiazem this evening when she is due to receive her pain/sleep/anxiety medications. Would start short acting diltiazem and uptitrate. Con't dig. Hold off on propanolol while with copd exacerbation. Consider resuming once she has further improvement in sx's of sob. Dig level in am. sob, a.e. copd - -no signs acs. ce's neg x 2. Ekg without acute ischemic changes. - mgm't of copd per pulm/pmd - diuresis as mentioned below acute diastolic CHF - prior dry weight have ranged from 180-190. daily standing weights. I/O's. -some mild vol overload/sob likely due to rvr with possible contribution from volume retention 2/2 prednisone. -cont rate control as above - diurese with lasix 40 mg IV daily. daily bmp. h/o DVT and PE: -see prior notes. -on AC. HTN: -stable h/o heroin abuse: -on methadone maintenance + tob - smoking cessation counseling
--- NOTE | 2017-02-08 17:36 | PN ---
Progress Note, Physician History of Present Illness: feeling better - Current Medication List Current Medications: Active Medications Albuterol/Ipratropium (Duoneb -) 1 amp NEB Q4H PRN PRN Reason: SHORTNESS OF BREATH Last Admin: 02/07/17 23:13 Dose: 1 amp Albuterol/Ipratropium (Duoneb -) 1 amp NEB Q6H PRN PRN Reason: SHORTNESS OF BREATH Clonazepam (Klonopin -) 0.5 mg PO BID PRN PRN Reason: ANXIETY Last Admin: 02/08/17 09:36 Dose: 0.5 mg Digoxin (Lanoxin -) 0.125 mg PO DAILY [facility] Last Admin: 02/08/17 09:25 Dose: 0.125 mg Furosemide (Lasix -) 40 mg PO DAILY [facility] Last Admin: 02/08/17 09:25 Dose: 40 mg Gabapentin (Neurontin -) 300 mg PO TID [facility] Last Admin: 02/08/17 13:32 Dose: 300 mg Diltiazem HCl 125 mg/ Dextrose 125 mls @ 5 mls/hr IVPB TITR [facility]; 5 MG/HR PRN Reason: Protocol Last Admin: 02/08/17 14:30 Dose: 15 mg/hr, 15 mls/hr Levetiracetam (Keppra -) 500 mg PO BID [facility] Last Admin: 02/08/17 09:26 Dose: 500 mg Methadone HCl (Dolophine -) 50 mg PO DAILY [facility] Last Admin: 02/08/17 10:16 Dose: 50 mg Methylprednisolone Sodium Succinate (Solu-Medrol -) 40 mg IVPUSH Q8H-IV [facility] Last Admin: 02/08/17 17:21 Dose: 40 mg Quetiapine Fumarate 100 mg/ (Quetiapine Fumarate 200 mg) 300 mg PO HS [facility] Last Admin: 02/07/17 23:55 Dose: 300 mg Rivaroxaban (Xarelto -) 20 mg PO DAILY [facility] Last Admin: 02/08/17 09:25 Dose: 20 mg - Objective Vital Signs: Vital Signs Temperature 99.6 F 02/08/17 14:00 Pulse Rate 122 H 02/08/17 14:30 Respiratory Rate 20 02/08/17 14:00 Blood Pressure 122/80 02/08/17 14:30 O2 Sat by Pulse Oximetry (%) 98 02/08/17 10:51 Constitutional: Yes: No Distress HENT: Yes: Atraumatic Neck: Yes: Supple Cardiovascular: Yes: Regular Rate and Rhythm Respiratory: Yes: Rhonchi, Wheezes Gastrointestinal: Yes: Normal Bowel Sounds Extremities: Yes: WNL Neurological: Yes: Alert, Oriented Labs: CBC, BMP 02/08/17 05:05 02/08/17 00:00 INR, PTT INR 1.29 (0.82-1.09) H 02/07/17 11:33 Problem List - Problems (1) Acute exacerbation of chronic obstructive pulmonary disease Assessment/Plan: on duo nebs' iv steroids Code(s): J44.1 - CHRONIC OBSTRUCTIVE PULMONARY DISEASE W (ACUTE) EXACERBATION (2) Hypothyroidism Assessment/Plan: on meds Code(s): E03.9 - HYPOTHYROIDISM, UNSPECIFIED (3) Methadone maintenance therapy patient Assessment/Plan: will continue Code(s): F11.20 - OPIOID DEPENDENCE, UNCOMPLICATED (4) Smoker Assessment/Plan: on nicotine patch Code(s): F17.200 - NICOTINE DEPENDENCE, UNSPECIFIED, UNCOMPLICATED (5) A-fib Assessment/Plan: on meds Code(s): I48.91 - UNSPECIFIED ATRIAL FIBRILLATION Qualifiers: Atrial fibrillation type: chronic Qualified Code(s): I48.2 - Chronic atrial fibrillation (6) Anxiety Code(s): F41.9 - ANXIETY DISORDER, UNSPECIFIED (7) Hypertension Code(s): I10 - ESSENTIAL (PRIMARY) HYPERTENSION
[2017-02-08 20:10] LABS: URINE APPEARANCE CLEAR; URINE BILIRUBIN NEGATIVE (NEGATIVE); URINE BLOOD 1+ (NEGATIVE); URINE COLOR LTYELLOW; URINE GLUCOSE (UA) 1+ (NEGATIVE); URINE KETONE NEGATIVE (NEGATIVE); URINE LEUK ESTERASE NEGATIVE (NEGATIVE); URINE NITRITE NEGATIVE (NEGATIVE); URINE PROTEIN NEGATIVE (NEGATIVE); URINE UROBILINOGEN NEGATIVE mg/dL (0.2-1.0)
[2017-02-08] MEDS ORDERED: ALBUTEROL SO4 18 GM HFA INHALER IH PRN (20:14)
[2017-02-08 20:38] LABS: URINE HYALINE CAST 2 /lpf; URINE MUCUS RARE; URINE RBC <1 /hpf (0-3); URINE WBC <1 /hpf (3-5)
[2017-02-08] MEDS ORDERED: PT OWN MED DRAWER 7, Y5N ONE (21:35)
[2017-02-08] MEDS: QUETIAPINE FUMARATE PO SCH (21:36)
[2017-02-08] MEDS: clonazePAM 0.5 MG TABLET PO SCH (21:36)
[2017-02-08] MEDS ORDERED: IBUPROFEN 600 MG TABLET (FP) PO PRN (21:56)
[2017-02-08] MEDS ORDERED: QUEtiapine FUMARATE 25 MG TABLET (FP) PO SCH (22:00)
[2017-02-08] MEDS: dilTIAZem HCL 30 MG TABLET (FP) PO SCH (23:00)
[2017-02-08 23:11] LABS: URINE LEUK ESTERASE Negative (NEGATIVE)
[2017-02-09] MEDS ORDERED: DILTIAZEM INJECTION 125 MG in DEXTROSE 5%-WATER - 100 ML IVPB SCH (01:00)
[2017-02-09] MEDS: methylPREDNISolone NA SUCC 40 MG/1 ML VIAL IVPUSH SCH ×3 (02:15→17:47)
[2017-02-09] MEDS: dilTIAZem HCL 30 MG TABLET (FP) PO SCH ×5 (05:31→23:30)
[2017-02-09] MEDS: clonazePAM 0.5 MG TABLET PO SCH ×3 (05:32→21:16)
[2017-02-09] MEDS: GABAPENTIN 300 MG CAPSULE (FP) PO SCH ×3 (05:32→21:16)
[2017-02-09] MEDS ORDERED: dilTIAZem HCL 30 MG TABLET (FP) PO ONE (06:00)
[2017-02-09] MEDS: ALBUTEROL SO4 2.5/IPRATROPIUM 0.5 INH SOL 3 ML VIAL.NEB. NEB PRN ×2 (06:59→19:26)
[2017-02-09 07:58] LABS: BASOPHIL 0.2 % (0-2.0); MCH 29.9 pg (25.7-33.7); MCHC 32.5 g/dl (32.0-36.0); MEAN CELL VOLUME 91.9 fl (80-96); MEAN PLT VOLUME 8.9 fl (7.5-11.1); NEUTROPHILS 92.9 % (42.8-82.8); PLATELET COUNT 284 K/MM3 (134-434); RDW 17.6 % (11.6-15.6); WHITE BLOOD COUNT 18.8 K/mm3 (4.0-10.0)
[2017-02-09 08:38] LABS: ANION GAP 10 (8-16); CO2 25 mmol/L (21-32); CREATININE 1.1 mg/dL (0.55-1.02); GLUCOSE,RANDOM 229 mg/dL (74-106)
[2017-02-09 08:50] LABS: DIGOXIN LEVEL 0.2091 ng/ml (0.8-2.0)
[2017-02-09] MEDS: RIVAROXABAN 20 MG TABLET PO SCH (09:25)
[2017-02-09] MEDS: METHADONE HCL 10 MG TABLET PO SCH (09:25)
[2017-02-09] MEDS: levETIRAcetam 500 MG TABLET (FP) PO SCH ×2 (09:25→21:16)
[2017-02-09] MEDS: DIGOXIN 0.125 MG TABLET (FP) PO SCH (09:25)
[2017-02-09] MEDS: FUROSEMIDE 40 MG TABLET (FP) PO SCH (09:26)
--- NOTE | 2017-02-09 11:09 | PN ---
Progress Note (short form) - Note Progress Note: CC: afib/sob S: less agitated today. remains sob. still with intermittent palps. no cp, dizziness. Current Medications Albuterol Sulfate (Ventolin Hfa Inhaler -) 2 puff IH Q4H PRN PRN Reason: SHORT OF BREATH/WHEEZING Albuterol/Ipratropium (Duoneb -) 1 amp NEB Q4H PRN PRN Reason: SHORTNESS OF BREATH Last Admin: 02/09/17 06:59 Dose: 1 amp Clonazepam (Klonopin -) 0.5 mg PO TID [facility] Last Admin: 02/09/17 05:32 Dose: 0.5 mg Digoxin (Lanoxin -) 0.125 mg PO DAILY [facility] Last Admin: 02/09/17 09:25 Dose: 0.125 mg Diltiazem HCl (Cardizem -) 90 mg PO Q6HPO [facility] Furosemide (Lasix -) 40 mg PO DAILY [facility] Last Admin: 02/09/17 09:26 Dose: 40 mg Gabapentin (Neurontin -) 300 mg PO TID [facility] Last Admin: 02/09/17 05:32 Dose: 300 mg Guaifenesin/Codeine Phosphate (Robitussin Ac -) 10 ml PO Q6H PRN PRN Reason: COUGH Ibuprofen (Motrin -) 600 mg PO Q6H PRN PRN Reason: FEVER Levetiracetam (Keppra -) 500 mg PO BID [facility] Last Admin: 02/09/17 09:25 Dose: 500 mg Methadone HCl (Dolophine -) 50 mg PO DAILY [facility] Last Admin: 02/09/17 09:25 Dose: 50 mg Methylprednisolone Sodium Succinate (Solu-Medrol -) 40 mg IVPUSH Q8H-IV [facility] Last Admin: 02/09/17 09:26 Dose: 40 mg Oxycodone HCl (Roxicodone -) 5 mg PO Q6H PRN PRN Reason: PAIN Quetiapine Fumarate 100 mg/ (Quetiapine Fumarate 200 mg) 300 mg PO HS [facility] Last Admin: 02/08/17 21:36 Dose: 300 mg Rivaroxaban (Xarelto -) 20 mg PO DAILY [facility] Last Admin: 02/09/17 09:25 Dose: 20 mg Vital Signs - 24 hr 02/08/17 02/08/17 02/08/17 14:00 14:30 18:00 Temperature 99.6 F 99.3 F Pulse Rate 122 H 122 H 126 H Respiratory 20 20 Rate Blood Pressure 122/80 122/80 120/73 O2 Sat by Pulse Oximetry (%) 02/08/17 02/08/17 02/08/17 20:30 20:31 23:00 Temperature 98.7 F Pulse Rate 118 H 110 H Respiratory 20 20 22 Rate Blood Pressure 106/62 130/78 O2 Sat by Pulse 97 Oximetry (%) 02/09/17 02/09/17 02/09/17 00:31 03:00 05:34 Temperature 98.4 F 97.1 F L Pulse Rate 110 H 122 H 126 H Respiratory 20 20 Rate Blood Pressure 135/84 142/60 O2 Sat by Pulse Oximetry (%) 02/09/17 09:25 Temperature Pulse Rate 112 H Respiratory Rate Blood Pressure O2 Sat by Pulse Oximetry (%) Intake & Output 02/07/17 02/08/17 02/09/17 02/10/17 07:59 07:59 07:59 07:59 Intake Total 150 60 Balance 150 60 Weight 196 lb 6.4 oz 199 lb 12.8 oz calm, conversational dyspnea jvd flat, neck supple diminished air mov't, nl effort tachycardic, irregular nl s1, s2 no mrg + bs soft nt nd trace edema. no cyanosis, clubbing. + dp/pt no carotid bruits no jaundice, diaphoresis. aaox3 CBC, BMP 02/09/17 05:45 02/09/17 05:45 EKG: afib/flutter with RVR, 136 bpm. poor r wave progression tele: afib rates 100's-110's. Occasional breakthrough RVR into the 130's. One episode to 150's (patient endorsed having a panic attack at that time). echo 11/2016: tds; low nl lvef, nl rv, alla, mild-mod mr/tr, Echo 07/2016: nl lv/rv. 1+ lae, 1+ mr/tr CXR here with increased interstitial markings c/w chronic lung disease, but can' t exclude mild congestion. similar to priors. a/p: 66 yo smoker with h/o pafib on xarelto, htn, prior pe, copd, anxiety, lung cancer resected August 2012 at [facility] (no h/o of RT or chemo), polysubstance abuse on methadone maintenance , RA, Hep C, thyroid nodules, buergers disaese who p/w worsening sob and afib with rvr. atrial fibrillation -CHADS VASC 2--has been maintained on AC (xarelto at home), with h/o PE noted. -see notes from prior admits--mult attempts made to coordinate pt's care with her PMD and have her f/u with us in office to minimize risks of tachy-CMP or falls/ICH on AC, but she has been non-compliant. (AC continued due to VTEs hx previously and need for indefinite AC per prior evaluations. hence not a candidate for [place] appendage closure/Watchman) - 02/08 still with frequent breakthrough RVR to 120's with episodes of frequent agitation/frustration. Will plan on transitioning from diltiazem drip to po diltiazem this evening when she is due to receive her pain/sleep/anxiety medications. Would start short acting diltiazem and uptitrate. Con't dig. Hold off on propanolol while with copd exacerbation. Consider resuming once she has further improvement in sx's of sob. Dig level in am. - 02/09: Agitation improving. PO diltiazem uptitrated to 60 q6h last night. Will increase further to 90 mg q6h. Digoxin level low --> will give extra dose of .125 mcg IV x 1. Discussed with pulmonary. Patient still with significant sx's from copd exacerbation --> too early to add back beta blockade. Will reevalute tomorrow. sob, a.e. copd - -no signs acs. ce's neg x 2. Ekg without acute ischemic changes. - mgm't of copd per pulm/pmd - diuresis as mentioned below acute diastolic CHF - prior dry weight have ranged from 180-190. daily standing weights. I/O's. -some mild vol overload/sob likely due to rvr with possible contribution from volume retention 2/2 prednisone. -cont rate control as above - standing weight today elevated above dry weight, will diurese with lasix 40 mg IV daily. daily bmp. h/o DVT and PE: -see prior notes. -on AC. HTN: -stable h/o heroin abuse: -on methadone maintenance + tob - smoking cessation counseling
[2017-02-09] MEDS ORDERED: dilTIAZem HCL 30 MG TABLET (FP) PO SCH (11:15)
[2017-02-09] MEDS ORDERED: DIGOXIN 0.5 MG/2 ML AMPUL IVPUSH ONE (11:30)
[2017-02-09] MEDS: FUROSEMIDE 40 MG/4 ML INJECTABLE VIAL IVPUSH SCH (12:39)
[2017-02-09] MEDS: oxyCODONE HCL 5 MG TABLET PO PRN ×2 (12:40→21:14)
--- NOTE | 2017-02-09 13:38 | PN ---
Progress Note, Physician - Current Medication List Current Medications: Active Medications Albuterol Sulfate (Ventolin Hfa Inhaler -) 2 puff IH Q4H PRN PRN Reason: SHORT OF BREATH/WHEEZING Albuterol/Ipratropium (Duoneb -) 1 amp NEB Q4H PRN PRN Reason: SHORTNESS OF BREATH Last Admin: 02/09/17 06:59 Dose: 1 amp Clonazepam (Klonopin -) 0.5 mg PO TID [facility] Last Admin: 02/09/17 05:32 Dose: 0.5 mg Digoxin (Lanoxin -) 0.125 mg PO DAILY [facility] Last Admin: 02/09/17 09:25 Dose: 0.125 mg Diltiazem HCl (Cardizem -) 90 mg PO Q6HPO [facility] Last Admin: 02/09/17 12:39 Dose: 90 mg Furosemide (Lasix Injection -) 40 mg IVPUSH DAILY [facility] Last Admin: 02/09/17 12:39 Dose: 40 mg Gabapentin (Neurontin -) 300 mg PO TID [facility] Last Admin: 02/09/17 05:32 Dose: 300 mg Guaifenesin/Codeine Phosphate (Robitussin Ac -) 10 ml PO Q6H PRN PRN Reason: COUGH Ibuprofen (Motrin -) 600 mg PO Q6H PRN PRN Reason: FEVER Levetiracetam (Keppra -) 500 mg PO BID [facility] Last Admin: 02/09/17 09:25 Dose: 500 mg Methadone HCl (Dolophine -) 50 mg PO DAILY [facility] Last Admin: 02/09/17 09:25 Dose: 50 mg Methylprednisolone Sodium Succinate (Solu-Medrol -) 40 mg IVPUSH Q8H-IV [facility] Last Admin: 02/09/17 09:26 Dose: 40 mg Oxycodone HCl (Roxicodone -) 5 mg PO Q6H PRN PRN Reason: PAIN Last Admin: 02/09/17 12:40 Dose: 5 mg Quetiapine Fumarate 100 mg/ (Quetiapine Fumarate 200 mg) 300 mg PO HS [facility] Last Admin: 02/08/17 21:36 Dose: 300 mg Rivaroxaban (Xarelto -) 20 mg PO DAILY [facility] Last Admin: 02/09/17 09:25 Dose: 20 mg - Objective Vital Signs: Vital Signs Temperature 97.1 F L 02/09/17 05:34 Pulse Rate 133 H 02/09/17 12:40 Respiratory Rate 20 02/09/17 05:34 Blood Pressure 142/60 02/09/17 05:34 O2 Sat by Pulse Oximetry (%) 96 02/09/17 11:01 Constitutional: Yes: No Distress HENT: Yes: Atraumatic Neck: Yes: Supple Cardiovascular: Yes: Regular Rate and Rhythm Respiratory: Yes: Rhonchi Gastrointestinal: Yes: Normal Bowel Sounds Extremities: Yes: WNL Neurological: Yes: Alert, Oriented Labs: CBC, BMP 02/09/17 05:45 02/09/17 05:45 INR, PTT INR 1.29 (0.82-1.09) H 02/07/17 11:33 Problem List - Problems (1) Acute exacerbation of chronic obstructive pulmonary disease Assessment/Plan: on duo nebs' iv steroids Code(s): J44.1 - CHRONIC OBSTRUCTIVE PULMONARY DISEASE W (ACUTE) EXACERBATION (2) Hypothyroidism Assessment/Plan: on meds Code(s): E03.9 - HYPOTHYROIDISM, UNSPECIFIED (3) Methadone maintenance therapy patient Assessment/Plan: will continue Code(s): F11.20 - OPIOID DEPENDENCE, UNCOMPLICATED (4) Smoker Assessment/Plan: on nicotine patch Code(s): F17.200 - NICOTINE DEPENDENCE, UNSPECIFIED, UNCOMPLICATED (5) A-fib Assessment/Plan: on meds Code(s): I48.91 - UNSPECIFIED ATRIAL FIBRILLATION Qualifiers: Atrial fibrillation type: chronic Qualified Code(s): I48.2 - Chronic atrial fibrillation (6) Anxiety Assessment/Plan: on meds Code(s): F41.9 - ANXIETY DISORDER, UNSPECIFIED (7) Hypertension Code(s): I10 - ESSENTIAL (PRIMARY) HYPERTENSION
--- NOTE | 2017-02-09 17:11 | PN ---
Progress Note (short form) - Note Progress Note: PULMONARY Breathing still tight with productive cough and wheezing. Heart rates still rapid. Last Vital Signs Temp Pulse Resp BP Pulse Ox 97.8 F 133 H 32 H 124/83 96 02/09/17 10:00 02/09/17 12:40 02/09/17 10:00 02/09/17 14:00 02/09/17 11:01 Gen: tachypneic with speaking Heart: tachycardic, irregular Lung: poor air entry, bilateral rhonch, wheezes Abd: soft, nontender Ext: + edema CBC, BMP 02/09/17 05:45 02/09/17 05:45 Active Medications Albuterol Sulfate (Ventolin Hfa Inhaler -) 2 puff IH Q4H PRN PRN Reason: SHORT OF BREATH/WHEEZING Albuterol/Ipratropium (Duoneb -) 1 amp NEB Q4H PRN PRN Reason: SHORTNESS OF BREATH Last Admin: 02/09/17 06:59 Dose: 1 amp Clonazepam (Klonopin -) 0.5 mg PO TID [facility] Last Admin: 02/09/17 14:50 Dose: 0.5 mg Digoxin (Lanoxin -) 0.125 mg PO DAILY [facility] Last Admin: 02/09/17 09:25 Dose: 0.125 mg Diltiazem HCl (Cardizem -) 90 mg PO Q6HPO [facility] Last Admin: 02/09/17 12:39 Dose: 90 mg Furosemide (Lasix Injection -) 40 mg IVPUSH DAILY [facility] Last Admin: 02/09/17 12:39 Dose: 40 mg Gabapentin (Neurontin -) 300 mg PO TID [facility] Last Admin: 02/09/17 14:50 Dose: 300 mg Guaifenesin/Codeine Phosphate (Robitussin Ac -) 10 ml PO Q6H PRN PRN Reason: COUGH Ibuprofen (Motrin -) 600 mg PO Q6H PRN PRN Reason: FEVER Levetiracetam (Keppra -) 500 mg PO BID [facility] Last Admin: 02/09/17 09:25 Dose: 500 mg Methadone HCl (Dolophine -) 50 mg PO DAILY [facility] Last Admin: 02/09/17 09:25 Dose: 50 mg Methylprednisolone Sodium Succinate (Solu-Medrol -) 40 mg IVPUSH Q8H-IV [facility] Last Admin: 12/09/17 09:26 Dose: 40 mg Oxycodone HCl (Roxicodone -) 5 mg PO Q6H PRN PRN Reason: PAIN Last Admin: 02/09/17 12:40 Dose: 5 mg Quetiapine Fumarate 100 mg/ (Quetiapine Fumarate 200 mg) 300 mg PO HS [facility] Last Admin: 02/08/17 21:36 Dose: 300 mg Rivaroxaban (Xarelto -) 20 mg PO DAILY [facility] Last Admin: 02/09/17 09:25 Dose: 20 mg A/P Acute COPD Exacerbation Atrial Fibrillation with RVR Buerger Disease HTN Hypothyroidism Anxiety Smoker Methadone Maintenance - continue medrol at current dose - inhaled bronchodilators - O2 to keep Spo2 >90% - rate control - continue anticoagulation - smoking cessation Problem List - Problems (1) Acute exacerbation of chronic obstructive pulmonary disease Code(s): J44.1 - CHRONIC OBSTRUCTIVE PULMONARY DISEASE W (ACUTE) EXACERBATION (2) Rapid atrial fibrillation Code(s): I48.91 - UNSPECIFIED ATRIAL FIBRILLATION (3) Hypothyroidism Code(s): E03.9 - HYPOTHYROIDISM, UNSPECIFIED (4) Hypertension Code(s): I10 - ESSENTIAL (PRIMARY) HYPERTENSION (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
[2017-02-09] MEDS ORDERED: PT OWN MED DRAWER 7, Y5N ONE (21:13)
[2017-02-09] MEDS: guaiFENesin/CODEINE 10 ML UNIT-DOSE CUPS PO PRN (21:16)
[2017-02-09] MEDS: QUETIAPINE FUMARATE PO SCH (21:16)
[2017-02-09] MEDS: NICOTINE 21 MG/24 HOURS TOPICAL PATCH TD SCH (21:17)
[2017-02-10] MEDS: methylPREDNISolone NA SUCC 40 MG/1 ML VIAL IVPUSH SCH ×4 (02:12→17:35)
[2017-02-10] MEDS: dilTIAZem HCL 30 MG TABLET (FP) PO SCH ×3 (05:07→17:35)
[2017-02-10] MEDS: GABAPENTIN 300 MG CAPSULE (FP) PO SCH ×3 (05:07→21:12)
[2017-02-10] MEDS: clonazePAM 0.5 MG TABLET PO SCH ×3 (05:07→21:12)
--- NOTE | 2017-02-10 08:43 | PN ---
Progress Note, Physician Chief Complaint: sob History of Present Illness: still sob but it's better. main complaint now is strong pain in center chest when coughs, breathes deep, or bends torso forward. no leg swelling, syncope - Current Medication List Current Medications: Active Medications Albuterol Sulfate (Ventolin Hfa Inhaler -) 2 puff IH Q4H PRN PRN Reason: SHORT OF BREATH/WHEEZING Albuterol/Ipratropium (Duoneb -) 1 amp NEB Q4H PRN PRN Reason: SHORTNESS OF BREATH Last Admin: 02/09/17 19:26 Dose: 1 amp Clonazepam (Klonopin -) 0.5 mg PO TID [facility] Last Admin: 02/10/17 05:07 Dose: 0.5 mg Digoxin (Lanoxin -) 0.125 mg PO DAILY [facility] Last Admin: 02/09/17 09:25 Dose: 0.125 mg Diltiazem HCl (Cardizem -) 90 mg PO Q6HPO [facility] Last Admin: 02/10/17 05:07 Dose: 90 mg Furosemide (Lasix Injection -) 40 mg IVPUSH DAILY [facility] Last Admin: 02/09/17 12:39 Dose: 40 mg Gabapentin (Neurontin -) 300 mg PO TID [facility] Last Admin: 02/10/17 05:07 Dose: 300 mg Guaifenesin/Codeine Phosphate (Robitussin Ac -) 10 ml PO Q6H PRN PRN Reason: COUGH Last Admin: 02/09/17 21:16 Dose: 10 ml Ibuprofen (Motrin -) 600 mg PO Q6H PRN PRN Reason: FEVER Levetiracetam (Keppra -) 500 mg PO BID [facility] Last Admin: 02/09/17 21:16 Dose: 500 mg Methadone HCl (Dolophine -) 50 mg PO DAILY [facility] Last Admin: 02/09/17 09:25 Dose: 50 mg Methylprednisolone Sodium Succinate (Solu-Medrol -) 40 mg IVPUSH Q8H-IV [facility] Last Admin: 02/10/17 02:12 Dose: 40 mg Nicotine (Nicoderm Patch -) 21 mg TD DAILY [facility] Last Admin: 02/09/17 21:17 Dose: Not Given Oxycodone HCl (Roxicodone -) 5 mg PO Q6H PRN PRN Reason: PAIN Last Admin: 02/09/17 21:14 Dose: 5 mg Quetiapine Fumarate 100 mg/ (Quetiapine Fumarate 200 mg) 300 mg PO HS [facility] Last Admin: 02/09/17 21:16 Dose: 300 mg Rivaroxaban (Xarelto -) 20 mg PO DAILY [facility] Last Admin: 02/09/17 09:25 Dose: 20 mg - Objective Vital Signs: Vital Signs Temperature 98.5 F 02/10/17 01:11 Pulse Rate 123 H 02/10/17 01:11 Respiratory Rate 20 02/10/17 01:11 Blood Pressure 130/65 02/10/17 01:11 O2 Sat by Pulse Oximetry (%) 97 02/09/17 20:29 Constitutional: Yes: Well Nourished, No Distress, Calm Cardiovascular: Yes: Pulse Irregular, S1, S2. No: Gallop, Murmur Respiratory: Yes: Regular, Wheezes. No: Accessory Muscle Use, Rales Extremities: No: Cold Edema: No Neurological: Yes: Alert, Oriented. No: Seizure Psychiatric: No: Agitated Labs: CBC, BMP 02/09/17 05:45 02/09/17 05:45 INR, PTT INR 1.29 (0.82-1.09) H 02/07/17 11:33 - ....Imaging EKG: Other (tele: AF: HR mostly 80s-110s since yest evening, rare/brief 130s) Assessment/Plan Echo 11/2016: tds; low nl lvef, nl rv, alla, mild-mod mr/tr, Echo 07/2016: nl lv/rv. 1+ lae, 1+ mr/tr CXR here with increased interstitial markings c/w chronic lung disease, but can' t exclude mild congestion. similar to priors. a/p: 66 yo smoker with h/o pafib on xarelto, htn, prior pe, copd, anxiety, lung cancer resected August 2012 at [facility] (no h/o of RT or chemo), polysubstance abuse on methadone maintenance , RA, Hep C, thyroid nodules, buergers disaese who p/w worsening sob and afib with rvr. atrial fibrillation -CHADS VASC 2--has been maintained on AC (xarelto at home), due to hypercoagulable hx with mult VTEs -see notes from prior admits--mult attempts made to coordinate pt's care with her PMD and have her f/u with us in office to minimize risks of tachy-CMP or falls/ICH on AC, but she has been non-compliant. (AC continued by PMD due to VTEs hx previously (including recently) and need for indefinite AC per prior evaluations. not a candidate for [place] appendage closure/Watchman as she has non- afib indication for AC) -frequently rapid AF rates on prior admits during episodes of a.e. copd - 02/08 still with frequent breakthrough RVR to 120's with episodes of frequent agitation/frustration. Will plan on transitioning from diltiazem drip to po diltiazem this evening when she is due to receive her pain/sleep/anxiety medications. Would start short acting diltiazem and uptitrate. Con't dig. Hold off on propanolol while with copd exacerbation. Consider resuming once she has further improvement in sx's of sob. Dig level in am. - 02/09: Agitation improving. PO diltiazem uptitrated to 60 q6h last night. Will increase further to 90 mg q6h. Digoxin level low --> will give extra dose of .125 mcg IV x 1. Patient still with significant sx's from copd exacerbation --> too early to add back beta blockade. Will reevalute tomorrow. -02/10: HRs reasonably controlled on diltiazm 90 q6h, with brief rises to 130s in setting of dyspnea, cough pleuritic cp and steroids triggers. same meds, observe tele - would not pursue AVN ablation and PM unless she shows persistent rapid HRs even when pulm status is stable, or admits for sx's clearly attributable to rapid HRs (including if HFpEF) a.e. copd - -no signs acs. ce's neg x 2. Ekg without acute ischemic changes. - mgm't of copd per pulm/pmd - diuresis as mentioned below acute diastolic CHF - prior dry weight have ranged from 180-190. daily standing weights. I/O's. - some mild vol overload/sob likely due to rvr with possible contribution from volume retention 2/2 prednisone. - cont rate control as above - 02/09: standing weight today elevated above dry weight, will diurese with lasix 40 mg IV daily. daily bmp. h/o DVT and PE: -see prior notes. -on AC. HTN: -stable h/o heroin abuse: -on methadone maintenance + tob - smoking cessation counseling
[2017-02-10] MEDS: RIVAROXABAN 20 MG TABLET PO SCH ×2 (08:49→09:14)
[2017-02-10] MEDS: DIGOXIN 0.125 MG TABLET (FP) PO SCH ×2 (08:49→09:13)
[2017-02-10] MEDS: FUROSEMIDE 40 MG/4 ML INJECTABLE VIAL IVPUSH SCH ×2 (08:49→09:14)
[2017-02-10] MEDS: levETIRAcetam 500 MG TABLET (FP) PO SCH ×3 (08:49→21:12)
[2017-02-10] MEDS: NICOTINE 21 MG/24 HOURS TOPICAL PATCH TD SCH ×2 (08:50→09:14)
[2017-02-10] MEDS: METHADONE HCL 10 MG TABLET PO SCH (09:14)
[2017-02-10] MEDS: ALBUTEROL SO4 2.5/IPRATROPIUM 0.5 INH SOL 3 ML VIAL.NEB. NEB PRN (14:59)
--- NOTE | 2017-02-10 18:14 | PN ---
Progress Note, Physician History of Present Illness: feeling better - Current Medication List Current Medications: Active Medications Albuterol Sulfate (Ventolin Hfa Inhaler -) 2 puff IH Q4H PRN PRN Reason: SHORT OF BREATH/WHEEZING Albuterol/Ipratropium (Duoneb -) 1 amp NEB Q4H PRN PRN Reason: SHORTNESS OF BREATH Last Admin: 02/10/17 14:59 Dose: 1 amp Clonazepam (Klonopin -) 0.5 mg PO TID [facility] Last Admin: 02/10/17 15:16 Dose: 0.5 mg Digoxin (Lanoxin -) 0.125 mg PO DAILY [facility] Last Admin: 02/10/17 09:13 Dose: Not Given Diltiazem HCl (Cardizem -) 90 mg PO Q6HPO [facility] Last Admin: 02/10/17 17:35 Dose: 90 mg Furosemide (Lasix Injection -) 40 mg IVPUSH DAILY [facility] Last Admin: 02/10/17 09:14 Dose: Not Given Gabapentin (Neurontin -) 300 mg PO TID [facility] Last Admin: 02/10/17 15:16 Dose: 300 mg Guaifenesin/Codeine Phosphate (Robitussin Ac -) 10 ml PO Q6H PRN PRN Reason: COUGH Last Admin: 02/09/17 21:16 Dose: 10 ml Ibuprofen (Motrin -) 600 mg PO Q6H PRN PRN Reason: FEVER Levetiracetam (Keppra -) 500 mg PO BID [facility] Last Admin: 02/10/17 09:13 Dose: Not Given Methadone HCl (Dolophine -) 50 mg PO DAILY [facility] Last Admin: 02/10/17 09:14 Dose: 50 mg Methylprednisolone Sodium Succinate (Solu-Medrol -) 40 mg IVPUSH Q8H-IV [facility] Last Admin: 02/10/17 17:35 Dose: 40 mg Nicotine (Nicoderm Patch -) 21 mg TD DAILY [facility] Last Admin: 02/10/17 09:14 Dose: Not Given Oxycodone HCl (Roxicodone -) 5 mg PO Q6H PRN PRN Reason: PAIN Last Admin: 02/09/17 21:14 Dose: 5 mg Quetiapine Fumarate 100 mg/ (Quetiapine Fumarate 200 mg) 300 mg PO HS [facility] Last Admin: 02/09/17 21:16 Dose: 300 mg Rivaroxaban (Xarelto -) 20 mg PO DAILY [facility] Last Admin: 02/10/17 09:14 Dose: Not Given - Objective Vital Signs: Vital Signs Temperature 99.6 F 02/10/17 14:00 Pulse Rate 82 02/10/17 14:58 Respiratory Rate 21 02/10/17 14:00 Blood Pressure 136/86 02/10/17 14:00 O2 Sat by Pulse Oximetry (%) 94 L 02/10/17 14:58 Constitutional: Yes: Anxious HENT: Yes: Atraumatic Neck: Yes: Supple Cardiovascular: Yes: Regular Rate and Rhythm Respiratory: Yes: Rhonchi, Wheezes Gastrointestinal: Yes: Normal Bowel Sounds Extremities: Yes: WNL Neurological: Yes: Alert, Oriented Labs: CBC, BMP 02/09/17 05:45 02/09/17 05:45 INR, PTT INR 1.29 (0.82-1.09) H 02/07/17 11:33 Problem List - Problems (1) Acute exacerbation of chronic obstructive pulmonary disease Assessment/Plan: on duo nebs' iv steroids Code(s): J44.1 - CHRONIC OBSTRUCTIVE PULMONARY DISEASE W (ACUTE) EXACERBATION (2) Hypothyroidism Assessment/Plan: on meds Code(s): E03.9 - HYPOTHYROIDISM, UNSPECIFIED (3) Methadone maintenance therapy patient Assessment/Plan: will continue Code(s): F11.20 - OPIOID DEPENDENCE, UNCOMPLICATED (4) Smoker Assessment/Plan: on nicotine patch Code(s): F17.200 - NICOTINE DEPENDENCE, UNSPECIFIED, UNCOMPLICATED (5) A-fib Assessment/Plan: on meds Code(s): I48.91 - UNSPECIFIED ATRIAL FIBRILLATION Qualifiers: Atrial fibrillation type: chronic Qualified Code(s): I48.2 - Chronic atrial fibrillation (6) Anxiety Assessment/Plan: on meds Code(s): F41.9 - ANXIETY DISORDER, UNSPECIFIED (7) Hypertension Assessment/Plan: on meds Code(s): I10 - ESSENTIAL (PRIMARY) HYPERTENSION
[2017-02-10] MEDS: oxyCODONE HCL 5 MG TABLET PO PRN (21:12)
[2017-02-10] MEDS: guaiFENesin/CODEINE 10 ML UNIT-DOSE CUPS PO PRN (21:13)
[2017-02-10] MEDS: QUETIAPINE FUMARATE PO SCH (21:13)
[2017-02-11] MEDS: dilTIAZem HCL 30 MG TABLET (FP) PO SCH ×4 (00:33→18:03)
[2017-02-11] MEDS: ALBUTEROL SO4 2.5/IPRATROPIUM 0.5 INH SOL 3 ML VIAL.NEB. NEB PRN (02:43)
[2017-02-11] MEDS: methylPREDNISolone NA SUCC 40 MG/1 ML VIAL IVPUSH SCH ×3 (02:54→18:03)
[2017-02-11] MEDS: GABAPENTIN 300 MG CAPSULE (FP) PO SCH ×3 (05:27→21:34)
[2017-02-11] MEDS: clonazePAM 0.5 MG TABLET PO SCH ×3 (05:27→21:34)
[2017-02-11] MEDS: NICOTINE 21 MG/24 HOURS TOPICAL PATCH TD SCH (09:13)
[2017-02-11] MEDS: RIVAROXABAN 20 MG TABLET PO SCH (09:13)
[2017-02-11] MEDS: levETIRAcetam 500 MG TABLET (FP) PO SCH ×2 (09:13→21:32)
[2017-02-11] MEDS: DIGOXIN 0.125 MG TABLET (FP) PO SCH (09:13)
[2017-02-11] MEDS: FUROSEMIDE 40 MG/4 ML INJECTABLE VIAL IVPUSH SCH (09:14)
--- NOTE | 2017-02-11 09:53 | PN ---
Progress Note, Physician Chief Complaint: sob History of Present Illness: remains very sob and coughing. still pleuritic cp peter when coughs. sometimes feels palpitations. no signif leg swelling - Current Medication List Current Medications: Active Medications Albuterol Sulfate (Ventolin Hfa Inhaler -) 2 puff IH Q4H PRN PRN Reason: SHORT OF BREATH/WHEEZING Albuterol/Ipratropium (Duoneb -) 1 amp NEB Q4H PRN PRN Reason: SHORTNESS OF BREATH Last Admin: 02/11/17 02:43 Dose: 1 amp Clonazepam (Klonopin -) 0.5 mg PO TID [facility] Last Admin: 02/11/17 05:27 Dose: 0.5 mg Digoxin (Lanoxin -) 0.125 mg PO DAILY [facility] Last Admin: 02/11/17 09:13 Dose: 0.125 mg Diltiazem HCl (Cardizem -) 90 mg PO Q6HPO [facility] Last Admin: 02/11/17 05:27 Dose: 90 mg Furosemide (Lasix Injection -) 40 mg IVPUSH DAILY [facility] Last Admin: 02/11/17 09:14 Dose: 40 mg Gabapentin (Neurontin -) 300 mg PO TID [facility] Last Admin: 02/11/17 05:27 Dose: 300 mg Guaifenesin/Codeine Phosphate (Robitussin Ac -) 10 ml PO Q6H PRN PRN Reason: COUGH Last Admin: 02/10/17 21:13 Dose: 10 ml Ibuprofen (Motrin -) 600 mg PO Q6H PRN PRN Reason: FEVER Levetiracetam (Keppra -) 500 mg PO BID [facility] Last Admin: 02/11/17 09:13 Dose: 500 mg Methadone HCl (Dolophine -) 50 mg PO DAILY@0600 [facility] Methylprednisolone Sodium Succinate (Solu-Medrol -) 40 mg IVPUSH Q8H-IV [facility] Last Admin: 02/11/17 09:14 Dose: 40 mg Nicotine (Nicoderm Patch -) 21 mg TD DAILY [facility] Last Admin: 02/11/17 09:13 Dose: 21 mg Oxycodone HCl (Roxicodone -) 5 mg PO Q6H PRN PRN Reason: PAIN Last Admin: 02/10/17 21:12 Dose: 5 mg Quetiapine Fumarate 100 mg/ (Quetiapine Fumarate 200 mg) 300 mg PO HS [facility] Last Admin: 02/10/17 21:13 Dose: 300 mg Rivaroxaban (Xarelto -) 20 mg PO DAILY [facility] Last Admin: 02/11/17 09:13 Dose: 20 mg - Objective Vital Signs: Vital Signs Temperature 97.9 F 02/11/17 05:00 Pulse Rate 109 H 02/11/17 09:13 Respiratory Rate 20 02/11/17 05:00 Blood Pressure 128/88 02/11/17 05:00 O2 Sat by Pulse Oximetry (%) 97 02/10/17 21:00 Labs: CBC, BMP 02/09/17 05:45 02/09/17 05:45 INR, PTT INR 1.29 (0.82-1.09) H 02/07/17 11:33 - ....Imaging EKG: Other (tele: afib, HR mostly 100s-110s (briefly 120s-130s yest PM)) Assessment/Plan Echo 11/2016: tds; low nl lvef, nl rv, alla, mild-mod mr/tr, Echo 07/2016: nl lv/rv. 1+ lae, 1+ mr/tr CXR here with increased interstitial markings c/w chronic lung disease, but can' t exclude mild congestion. similar to priors. a/p: 66 yo smoker with h/o pafib on xarelto, htn, prior pe, copd, anxiety, lung cancer resected August 2012 at [facility] (no h/o of RT or chemo), polysubstance abuse on methadone maintenance , RA, Hep C, thyroid nodules, buergers disaese who p/w worsening sob and afib with rvr. atrial fibrillation -CHADS VASC 2--has been maintained on AC (xarelto at home), due to hypercoagulable hx with mult VTEs -see notes from prior admits--mult attempts made to coordinate pt's care with her PMD and have her f/u with us in office to minimize risks of tachy-CMP or falls/ICH on AC, but she has been non-compliant. (AC continued by PMD due to VTEs hx previously (including recently) and need for indefinite AC per prior evaluations. not a candidate for [place] appendage closure/Watchman as she has non- afib indication for AC) -frequently rapid AF rates on prior admits during episodes of a.e. copd - 02/08 still with frequent breakthrough RVR to 120's with episodes of frequent agitation/frustration. Will plan on transitioning from diltiazem drip to po diltiazem this evening when she is due to receive her pain/sleep/anxiety medications. Would start short acting diltiazem and uptitrate. Con't dig. Hold off on propanolol while with copd exacerbation. Consider resuming once she has further improvement in sx's of sob. Dig level in am. - 02/09: Agitation improving. PO diltiazem uptitrated to 60 q6h last night. Will increase further to 90 mg q6h. Digoxin level low --> will give extra dose of .125 mcg IV x 1. Patient still with significant sx's from copd exacerbation --> too early to add back beta blockade. Will reevalute tomorrow. -02/10: HRs reasonably controlled on diltiazm 90 q6h, with brief rises to 130s in setting of dyspnea, cough pleuritic cp and steroids triggers. same meds, observe tele -02/11: HRs same, cont same meds. would not plan to resume BB given frequent admits here with bronchospasm - would not pursue AVN ablation and PM unless she shows persistent rapid HRs even when pulm status is stable, or admits for sx's clearly attributable to rapid HRs (including if HFpEF) a.e. copd - -no signs acs. ce's neg x 2. Ekg without acute ischemic changes. - mgm't of copd per pulm/pmd - diuresis as mentioned below acute diastolic CHF - prior dry weight have ranged from 180-190. daily standing weights. I/O's. - some mild vol overload/sob likely due to rvr with possible contribution from volume retention 2/2 prednisone. - cont rate control as above - 02/09: standing weight today elevated above dry weight, will diurese with lasix 40 mg IV daily. daily bmp. h/o DVT and PE: -see prior notes. -on AC. HTN: -stable h/o heroin abuse: -on methadone maintenance + tob - smoking cessation counselled here
[2017-02-11] MEDS: METHADONE HCL 10 MG TABLET PO SCH (10:21)
--- NOTE | 2017-02-11 16:10 | PN ---
Progress Note, Physician History of Present Illness: still has cough - Current Medication List Current Medications: Active Medications Albuterol Sulfate (Ventolin Hfa Inhaler -) 2 puff IH Q4H PRN PRN Reason: SHORT OF BREATH/WHEEZING Albuterol/Ipratropium (Duoneb -) 1 amp NEB Q4H PRN PRN Reason: SHORTNESS OF BREATH Last Admin: 02/11/17 02:43 Dose: 1 amp Clonazepam (Klonopin -) 0.5 mg PO TID [facility] Last Admin: 02/11/17 13:06 Dose: 0.5 mg Digoxin (Lanoxin -) 0.125 mg PO DAILY [facility] Last Admin: 02/11/17 09:13 Dose: 0.125 mg Diltiazem HCl (Cardizem -) 90 mg PO Q6HPO [facility] Last Admin: 02/11/17 11:50 Dose: 90 mg Furosemide (Lasix Injection -) 40 mg IVPUSH DAILY [facility] Last Admin: 02/11/17 09:14 Dose: 40 mg Gabapentin (Neurontin -) 300 mg PO TID [facility] Last Admin: 02/11/17 13:06 Dose: 300 mg Guaifenesin/Codeine Phosphate (Robitussin Ac -) 10 ml PO Q6H PRN PRN Reason: COUGH Last Admin: 02/10/17 21:13 Dose: 10 ml Ibuprofen (Motrin -) 600 mg PO Q6H PRN PRN Reason: FEVER Levetiracetam (Keppra -) 500 mg PO BID [facility] Last Admin: 02/11/17 09:13 Dose: 500 mg Methadone HCl (Dolophine -) 50 mg PO DAILY@0600 [facility] Last Admin: 02/11/17 10:21 Dose: 50 mg Methylprednisolone Sodium Succinate (Solu-Medrol -) 40 mg IVPUSH Q8H-IV [facility] Last Admin: 02/11/17 09:14 Dose: 40 mg Nicotine (Nicoderm Patch -) 21 mg TD DAILY [facility] Last Admin: 02/11/17 09:13 Dose: 21 mg Oxycodone HCl (Roxicodone -) 5 mg PO Q6H PRN PRN Reason: PAIN Last Admin: 02/10/17 21:12 Dose: 5 mg Quetiapine Fumarate 100 mg/ (Quetiapine Fumarate 200 mg) [address] [facility] Last Admin: 02/10/17 21:13 Dose: 300 mg Rivaroxaban (Xarelto -) 20 mg PO DAILY [facility] Last Admin: 02/11/17 09:13 Dose: 20 mg - Objective Vital Signs: Vital Signs Temperature 98.3 F 02/11/17 13:32 Pulse Rate 105 H 02/11/17 13:32 Respiratory Rate 20 02/11/17 13:32 Blood Pressure 139/88 02/11/17 13:32 O2 Sat by Pulse Oximetry (%) 96 02/11/17 09:00 Constitutional: Yes: No Distress HENT: Yes: Atraumatic Neck: Yes: Supple Cardiovascular: Yes: Regular Rate and Rhythm Respiratory: Yes: Rhonchi Gastrointestinal: Yes: Normal Bowel Sounds Extremities: Yes: WNL Neurological: Yes: Alert, Oriented Labs: CBC, BMP 02/09/17 05:45 02/09/17 05:45 INR, PTT INR 1.29 (0.82-1.09) H 02/07/17 11:33 Problem List - Problems (1) Acute exacerbation of chronic obstructive pulmonary disease Assessment/Plan: on duo nebs' iv steroids Code(s): J44.1 - CHRONIC OBSTRUCTIVE PULMONARY DISEASE W (ACUTE) EXACERBATION (2) Hypothyroidism Assessment/Plan: on meds Code(s): E03.9 - HYPOTHYROIDISM, UNSPECIFIED (3) Methadone maintenance therapy patient Assessment/Plan: will continue Code(s): F11.20 - OPIOID DEPENDENCE, UNCOMPLICATED (4) Smoker Assessment/Plan: on nicotine patch Code(s): F17.200 - NICOTINE DEPENDENCE, UNSPECIFIED, UNCOMPLICATED (5) A-fib Code(s): I48.91 - UNSPECIFIED ATRIAL FIBRILLATION Qualifiers: Atrial fibrillation type: chronic Qualified Code(s): I48.2 - Chronic atrial fibrillation (6) Anxiety Assessment/Plan: on meds Code(s): F41.9 - ANXIETY DISORDER, UNSPECIFIED (7) Hypertension Assessment/Plan: on meds Code(s): I10 - ESSENTIAL (PRIMARY) HYPERTENSION
[2017-02-11] MEDS ORDERED: PT OWN MED DRAWER 7, Y5N ONE (21:15)
[2017-02-11] MEDS: oxyCODONE HCL 5 MG TABLET PO PRN (21:33)
[2017-02-11] MEDS: QUETIAPINE FUMARATE PO SCH (21:35)
[2017-02-11] MEDS: guaiFENesin/CODEINE 10 ML UNIT-DOSE CUPS PO PRN (21:41)
[2017-02-12] MEDS: dilTIAZem HCL 30 MG TABLET (FP) PO SCH ×5 (00:36→23:13)
[2017-02-12] MEDS: methylPREDNISolone NA SUCC 40 MG/1 ML VIAL IVPUSH SCH ×2 (02:21→09:15)
[2017-02-12] MEDS: METHADONE HCL 10 MG TABLET PO SCH (05:36)
[2017-02-12] MEDS: clonazePAM 0.5 MG TABLET PO SCH ×2 (05:37→13:27)
[2017-02-12] MEDS: GABAPENTIN 300 MG CAPSULE (FP) PO SCH ×3 (05:38→23:12)
[2017-02-12] MEDS: RIVAROXABAN 20 MG TABLET PO SCH (09:15)
[2017-02-12] MEDS: NICOTINE 21 MG/24 HOURS TOPICAL PATCH TD SCH (09:15)
[2017-02-12] MEDS: FUROSEMIDE 40 MG/4 ML INJECTABLE VIAL IVPUSH SCH (09:15)
[2017-02-12] MEDS: DIGOXIN 0.125 MG TABLET (FP) PO SCH (09:15)
[2017-02-12] MEDS: levETIRAcetam 500 MG TABLET (FP) PO SCH ×2 (09:15→23:12)
[2017-02-12] MEDS: ALBUTEROL SO4 2.5/IPRATROPIUM 0.5 INH SOL 3 ML VIAL.NEB. NEB PRN ×2 (09:57→15:01)
--- NOTE | 2017-02-12 10:54 | PN ---
Progress Note (short form) - Note Progress Note: Chief Complaint: sob History of Present Illness: remains very sob and coughing. still pleuritic cp peter when coughs. sometimes feels palpitations. no dizziness weight coming down, but leg swelling remains. Current Medications Albuterol Sulfate (Ventolin Hfa Inhaler -) 2 puff IH Q4H PRN PRN Reason: SHORT OF BREATH/WHEEZING Albuterol/Ipratropium (Duoneb -) 1 amp NEB Q4H PRN PRN Reason: SHORTNESS OF BREATH Last Admin: 02/12/17 09:57 Dose: 1 amp Clonazepam (Klonopin -) 0.5 mg PO TID [facility] Last Admin: 02/12/17 05:37 Dose: 0.5 mg Digoxin (Lanoxin -) 0.125 mg PO DAILY [facility] Last Admin: 02/12/17 09:15 Dose: 0.125 mg Diltiazem HCl (Cardizem -) 90 mg PO Q6HPO [facility] Last Admin: 02/12/17 05:35 Dose: 90 mg Furosemide (Lasix Injection -) 40 mg IVPUSH DAILY [facility] Last Admin: 02/12/17 09:15 Dose: 40 mg Gabapentin (Neurontin -) 300 mg PO TID [facility] Last Admin: 02/12/17 05:38 Dose: 300 mg Ibuprofen (Motrin -) 600 mg PO Q6H PRN PRN Reason: FEVER Levetiracetam (Keppra -) 500 mg PO BID [facility] Last Admin: 02/12/17 09:15 Dose: 500 mg Methadone HCl (Dolophine -) 50 mg PO DAILY@0600 [facility] Last Admin: 02/12/17 05:36 Dose: 50 mg Methylprednisolone Sodium Succinate (Solu-Medrol -) 40 mg IVPUSH Q8H-IV [facility] Last Admin: 02/12/17 09:15 Dose: 40 mg Nicotine (Nicoderm Patch -) 21 mg TD DAILY [facility] Last Admin: 02/12/17 09:15 Dose: 21 mg Quetiapine Fumarate 100 mg/ (Quetiapine Fumarate 200 mg) 300 mg PO HS [facility] Last Admin: 02/11/17 21:35 Dose: 300 mg Rivaroxaban (Xarelto -) 20 mg PO DAILY [facility] Last Admin: 02/12/17 09:15 Dose: 20 mg - Objective Vital Signs: Vital Signs - 24 hr 02/11/17 02/11/17 02/11/17 13:32 18:00 21:00 Temperature 98.3 F 98.8 F Pulse Rate 105 H 108 H Respiratory 20 20 20 Rate Blood Pressure 139/88 134/72 O2 Sat by Pulse 95 Oximetry (%) 02/11/17 02/12/17 02/12/17 22:00 02:00 06:00 Temperature 98.5 F 98.2 F 97.8 F Pulse Rate 102 H 100 H 110 H Respiratory 20 20 20 Rate Blood Pressure 138/70 141/100 146/86 O2 Sat by Pulse Oximetry (%) 02/12/17 02/12/17 02/12/17 09:00 09:15 10:00 Temperature 98.3 F Pulse Rate 111 H 111 H Respiratory 20 20 Rate Blood Pressure 159/90 O2 Sat by Pulse 95 Oximetry (%) Intake & Output 02/10/17 02/11/17 02/12/17 02/13/17 07:59 07:59 07:59 07:59 Intake Total 1200 1790 1550 Balance 1200 1790 1550 Weight 196 lb 9.6 oz 193 lb 6.4 oz 192 lb 8 oz calm, conversational dyspnea jvd flat, neck supple + diffuse wheezes, nl effort tachycardic, irregular nl s1, s2 no mrg + bs soft nt nd trace edema. no cyanosis, clubbing. + dp/pt no carotid bruits no jaundice, diaphoresis. aaox3 Labs: CBC, BMP 02/09/17 05:45 02/12/17 12:40 Laboratory Tests 02/12/17 12:40 Magnesium 2.6 H Digoxin 0.8952 - ....Imaging EKG: Other (tele: afib, HR mostly 100s-110s (still increasing to 120's-130's intermittently) Assessment/Plan Echo 11/2016: tds; low nl lvef, nl rv, alla, mild-mod mr/tr, Echo 07/2016: nl lv/rv. 1+ lae, 1+ mr/tr CXR here with increased interstitial markings c/w chronic lung disease, but can' t exclude mild congestion. similar to priors. a/p: 66 yo smoker with h/o pafib on xarelto, htn, prior pe, copd, anxiety, lung cancer resected August 2012 at [facility] (no h/o of RT or chemo), polysubstance abuse on methadone maintenance , RA, Hep C, thyroid nodules, buergers disaese who p/w worsening sob and afib with rvr. atrial fibrillation -CHADS VASC 2--has been maintained on AC (xarelto at home), due to hypercoagulable hx with mult VTEs -see notes from prior admits--mult attempts made to coordinate pt's care with her PMD and have her f/u with us in office to minimize risks of tachy-CMP or falls/ICH on AC, but she has been non-compliant. (AC continued by PMD due to VTEs hx previously (including recently) and need for indefinite AC per prior evaluations. not a candidate for LA appendage closure/Watchman as she has non- afib indication for AC) -frequently rapid AF rates on prior admits during episodes of a.e. copd - 02/08 still with frequent breakthrough RVR to 120's with episodes of frequent agitation/frustration. Will plan on transitioning from diltiazem drip to po diltiazem this evening when she is due to receive her pain/sleep/anxiety medications. Would start short acting diltiazem and uptitrate. Con't dig. Hold off on propanolol while with copd exacerbation. Consider resuming once she has further improvement in sx's of sob. Dig level in am. - 02/09: Agitation improving. PO diltiazem uptitrated to 60 q6h last night. Will increase further to 90 mg q6h. Digoxin level low --> will give extra dose of .125 mcg IV x 1. Patient still with significant sx's from copd exacerbation --> too early to add back beta blockade. Will reevalute tomorrow. -1210: HRs reasonably controlled on diltiazm 90 q6h, with brief rises to 130s in setting of dyspnea, cough pleuritic cp and steroids triggers. same meds, observe tele -02/11-02/12: HRs same, cont same meds. would not plan to resume BB given frequent admits here with bronchospasm, discussed with pulm. Ongoing treatment of underlying lung disease. Agitation improved. Repeat dig level today therapeutic. lyte repletion prn. Will check tsh. - would not pursue AVN ablation and PM unless she shows persistent rapid HRs even when pulm status is stable, or admits for sx's clearly attributable to rapid HRs (including if HFpEF) a.e. copd - -no signs acs. ce's neg x 2. Ekg without acute ischemic changes. - mgm't of copd per pulm/pmd - diuresis as mentioned below acute diastolic CHF - prior dry weight have ranged from 180-190. daily standing weights. I/O's. - some mild vol overload/sob likely due to rvr with possible contribution from volume retention 2/2 prednisone. - cont rate control as above - 02/09: standing weight today elevated above dry weight, will diurese with lasix 40 mg IV daily. daily bmp. - 02/12: needs daily bmp on iv lasix --> ordered. Weight coming down, but remains above dry weight. Will con't iv lasix for now, may able to transition to PO in the next day or so. management of diabetes per pmd, monitor for improvement in hyponatremia. h/o DVT and PE: -see prior notes. -on AC. HTN: - overall controlled with intermittent elevations. If remains elevated, may need to uptitrate regimen while on steroids. h/o heroin abuse: -on methadone maintenance + tob - smoking cessation counselled here
[2017-02-12] MEDS ORDERED: methylPREDNISolone NA SUCC 40 MG/1 ML VIAL IVPUSH SCH (12:37)
--- NOTE | 2017-02-12 12:37 | PN ---
Progress Note, Physician History of Present Illness: PULMONARY ALERT,DYSPNEIC AT REST,TACHYPNEIC,+ DRY COUGH.PT REMAINS IN RAPID AFIB - Current Medication List Current Medications: Active Medications Albuterol Sulfate (Ventolin Hfa Inhaler -) 2 puff IH Q4H PRN PRN Reason: SHORT OF BREATH/WHEEZING Albuterol/Ipratropium (Duoneb -) 1 amp NEB Q4H PRN PRN Reason: SHORTNESS OF BREATH Last Admin: 02/12/17 09:57 Dose: 1 amp Clonazepam (Klonopin -) 0.5 mg PO TID [facility] Last Admin: 02/12/17 05:37 Dose: 0.5 mg Digoxin (Lanoxin -) 0.125 mg PO DAILY [facility] Last Admin: 02/12/17 09:15 Dose: 0.125 mg Diltiazem HCl (Cardizem -) 90 mg PO Q6HPO [facility] Last Admin: 02/12/17 12:21 Dose: 90 mg Furosemide (Lasix Injection -) 40 mg IVPUSH DAILY [facility] Last Admin: 02/12/17 09:15 Dose: 40 mg Gabapentin (Neurontin -) 300 mg PO TID [facility] Last Admin: 02/12/17 05:38 Dose: 300 mg Ibuprofen (Motrin -) 600 mg PO Q6H PRN PRN Reason: FEVER Levetiracetam (Keppra -) 500 mg PO BID [facility] Last Admin: 02/12/17 09:15 Dose: 500 mg Methadone HCl (Dolophine -) 50 mg PO DAILY@0600 [facility] Last Admin: 02/12/17 05:36 Dose: 50 mg Methylprednisolone Sodium Succinate (Solu-Medrol -) 40 mg IVPUSH Q8H-IV [facility] Last Admin: 02/12/17 09:15 Dose: 40 mg Nicotine (Nicoderm Patch -) 21 mg TD DAILY [facility] Last Admin: 02/12/17 09:15 Dose: 21 mg Quetiapine Fumarate 100 mg/ (Quetiapine Fumarate 200 mg) 300 mg PO HS [facility] Last Admin: 02/11/17 21:35 Dose: 300 mg Rivaroxaban (Xarelto -) 20 mg PO DAILY [facility] Last Admin: 02/12/17 09:15 Dose: 20 mg - Objective Vital Signs: Vital Signs Temperature 98.3 F 02/12/17 10:00 Pulse Rate 111 H 02/12/17 10:00 Respiratory Rate 20 02/12/17 10:00 Blood Pressure 159/90 02/12/17 10:00 O2 Sat by Pulse Oximetry (%) 95 02/12/17 09:00 Constitutional: Yes: Well Nourished, Mild Distress Eyes: Yes: WNL HENT: Yes: WNL Neck: Yes: WNL Cardiovascular: Yes: Pulse Irregular, S1, S2, Other (RAPID AFIB) Respiratory: Yes: Wheezes (BILATERAL WHEEZES) Gastrointestinal: Yes: Normal Bowel Sounds, Soft Extremities: Yes: WNL Edema: Yes Labs: CBC, BMP 02/09/17 05:45 02/09/17 05:45 INR, PTT INR 1.29 (0.82-1.09) H 02/07/17 11:33 Assessment/Plan A/P Acute COPD Exacerbation Atrial Fibrillation with RVR Buerger Disease HTN Hypothyroidism Anxiety Smoker Methadone Maintenance - medrol will increase to 60q8 - inhaled bronchodilators - O2 to keep Spo2 >90% - rate control - continue anticoagulation - smoking cessation Problem List - Problems (1) Acute exacerbation of chronic obstructive pulmonary disease Code(s): J44.1 - CHRONIC OBSTRUCTIVE PULMONARY DISEASE W (ACUTE) EXACERBATION (2) Rapid atrial fibrillation Code(s): I48.91 - UNSPECIFIED ATRIAL FIBRILLATION (3) Hypothyroidism Code(s): E03.9 - HYPOTHYROIDISM, UNSPECIFIED (4) Hypertension Code(s): I10 - ESSENTIAL (PRIMARY) HYPERTENSION (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
[2017-02-12 13:51] LABS: ANION GAP 8 (8-16); CALCIUM 8.2 mg/dL (8.5-10.1); CO2 31 mmol/L (21-32); CREATININE 1.2 mg/dL (0.55-1.02); MAGNESIUM 2.6 mg/dL (1.8-2.4)
[2017-02-12 14:03] LABS: DIGOXIN LEVEL 0.8952 ng/ml (0.8-2.0)
[2017-02-12 14:10] LABS: GLUCOSE,RANDOM 326 mg/dL (74-106)
--- NOTE | 2017-02-12 14:42 | EKG ---
Test Reason : Blood Pressure : / mmHG Vent. Rate : 154 BPM Atrial Rate : 416 BPM P-R Int : 000 ms QRS Dur : 082 ms QT Int : 304 ms P-R-T Axes : 000 036 -85 degrees QTc Int : 486 ms ATRIAL FIBRILLATION WITH RAPID VENTRICULAR RESPONSE NONSPECIFIC ST AND T WAVE ABNORMALITY ABNORMAL ECG WHEN COMPARED WITH ECG OF 07-FEB-2017 11:28, ATRIAL FIBRILLATION HAS REPLACED ATRIAL FLUTTER NONSPECIFIC T WAVE ABNORMALITY, WORSE IN INFERIOR LEADS NONSPECIFIC T WAVE ABNORMALITY NOW EVIDENT IN LATERAL LEADS Confirmed by HARSHA SAMUELS, LYNNE ([id number]) on 02/12/2017 2:41:49 PM Referred By: Confirmed By:LYNNE MCLEOD MD
--- NOTE | 2017-02-12 20:01 | PN ---
Progress Note, Physician History of Present Illness: feeling better - Current Medication List Current Medications: Active Medications Albuterol Sulfate (Ventolin Hfa Inhaler -) 2 puff IH Q4H PRN PRN Reason: SHORT OF BREATH/WHEEZING Clonazepam (Klonopin -) 0.5 mg PO TID [facility] Last Admin: 02/12/17 13:27 Dose: 0.5 mg Digoxin (Lanoxin -) 0.125 mg PO DAILY [facility] Last Admin: 02/12/17 09:15 Dose: 0.125 mg Diltiazem HCl (Cardizem -) 90 mg PO Q6HPO [facility] Last Admin: 02/12/17 17:02 Dose: 90 mg Furosemide (Lasix Injection -) 40 mg IVPUSH DAILY [facility] Last Admin: 02/12/17 09:15 Dose: 40 mg Gabapentin (Neurontin -) 300 mg PO TID [facility] Last Admin: 02/12/17 13:27 Dose: 300 mg Ibuprofen (Motrin -) 600 mg PO Q6H PRN PRN Reason: FEVER Levetiracetam (Keppra -) 500 mg PO BID [facility] Last Admin: 02/12/17 09:15 Dose: 500 mg Methadone HCl (Dolophine -) 50 mg PO DAILY@0600 [facility] Last Admin: 02/12/17 05:36 Dose: 50 mg Methylprednisolone Sodium Succinate (Solu-Medrol -) 60 mg IVPUSH Q8H-IV [facility] Last Admin: 02/12/17 17:02 Dose: 60 mg Nicotine (Nicoderm Patch -) 21 mg TD DAILY [facility] Last Admin: 02/12/17 09:15 Dose: 21 mg Quetiapine Fumarate 100 mg/ (Quetiapine Fumarate 200 mg) 300 mg PO HS [facility] Last Admin: 02/11/17 21:35 Dose: 300 mg Rivaroxaban (Xarelto -) 20 mg PO DAILY [facility] Last Admin: 02/12/17 09:15 Dose: 20 mg - Objective Vital Signs: Vital Signs Temperature 98.2 F 02/12/17 17:00 Pulse Rate 111 H 02/12/17 17:00 Respiratory Rate 20 02/12/17 17:00 Blood Pressure 135/91 02/12/17 17:00 O2 Sat by Pulse Oximetry (%) 95 02/12/17 09:00 Constitutional: Yes: No Distress HENT: Yes: Atraumatic Neck: Yes: Supple Cardiovascular: Yes: Regular Rate and Rhythm Respiratory: Yes: Rhonchi Gastrointestinal: Yes: Normal Bowel Sounds Extremities: Yes: WNL Neurological: Yes: Alert, Oriented Labs: CBC, BMP 02/09/17 05:45 02/12/17 12:40 INR, PTT INR 1.29 (0.82-1.09) H 02/07/17 11:33 Problem List - Problems (1) Acute exacerbation of chronic obstructive pulmonary disease Assessment/Plan: on duo nebs' iv steroids Code(s): J44.1 - CHRONIC OBSTRUCTIVE PULMONARY DISEASE W (ACUTE) EXACERBATION (2) Hypothyroidism Assessment/Plan: on meds Code(s): E03.9 - HYPOTHYROIDISM, UNSPECIFIED (3) Methadone maintenance therapy patient Assessment/Plan: will continue Code(s): F11.20 - OPIOID DEPENDENCE, UNCOMPLICATED (4) Smoker Assessment/Plan: on nicotine patch Code(s): F17.200 - NICOTINE DEPENDENCE, UNSPECIFIED, UNCOMPLICATED (5) A-fib Assessment/Plan: on meds Code(s): I48.91 - UNSPECIFIED ATRIAL FIBRILLATION Qualifiers: Atrial fibrillation type: chronic Qualified Code(s): I48.2 - Chronic atrial fibrillation (6) Anxiety Assessment/Plan: on meds Code(s): F41.9 - ANXIETY DISORDER, UNSPECIFIED (7) Hypertension Assessment/Plan: on meds Code(s): I10 - ESSENTIAL (PRIMARY) HYPERTENSION
[2017-02-12] MEDS ORDERED: guaiFENesin/CODEINE 5 ML UNIT-DOSE CUPS PO PRN (22:58)
[2017-02-12] MEDS ORDERED: oxyCODONE HCL 5 MG TABLET PO PRN (23:00)
[2017-02-12] MEDS: QUETIAPINE FUMARATE PO SCH (23:13)
[2017-02-12] MEDS ORDERED: clonazePAM 0.5 MG TABLET PO SCH (23:15)
[2017-02-12] MEDS ORDERED: dilTIAZem HCL 50 MG/10 ML - 10 ML VIAL IVPUSH ONE (23:50)
[2017-02-12] MEDS ORDERED: DIGOXIN 0.5 MG/2 ML AMPUL IVPUSH ONE (23:56)
[2017-02-13] MEDS ORDERED: ADENOSINE 6 MG/2 ML VIAL IVPUSH ONE (00:17)
[2017-02-13] MEDS ORDERED: AMIODARONE HCL INJECTION 150 MG in DEXTROSE 5%-WATER - 97 ML IVPB ONE (00:33)
[2017-02-13] MEDS ORDERED: AMIODARONE HCL 150 MG/3 ML VIAL IVPUSH ONE (00:34)
[2017-02-13] MEDS ORDERED: AMIODARONE IN DEXTROSE,ISO-OSM 360 MG/200 ML BAG IVPB SCH ×2 (00:45→01:30)
--- NOTE | 2017-02-13 01:55 | CONSULT ---
Consult Consult Specialty:: Pulmonary Critical Care Reason for Consultation:: Rapid Afib - History of Present Illness Chief Complaint: Rapid Afib History of Present Illness: 66yo female with h/o HTN, COPD, lung ca s/p resection, Buerger's disease, atrial fibrillation on anticoagulation, Hep C, methadone maintenance who was initially admitted on 02/07 with SOB thought to be 2/2 COPD exacerbation. During her stay was treated with steroids and bronchodilators as well as NIPPV. Her course c/b by rapid afib requiring initially cardizem drip (subsequently changed to PO) and digoxin. Overnight pt went into rapid afib with HR in 200s. Was given two doses of IV cardizem and transferred to ICU for further management. On arrival to ICU pt with HR in 200s, BP 200/114. No IV access initially, after numerous attempts PIV placed and patient was given a bolus of amiodarone (drip pending). She was also given two doses of cardizem 10mg IV. Currently HR improved to 130s. Active Medications Albuterol Sulfate (Ventolin Hfa Inhaler -) 2 puff IH Q4H PRN PRN Reason: SHORT OF BREATH/WHEEZING Chlorhexidine Gluconate (Hibiclens For Decolonization -) 1 applic TP HS [facility] Clonazepam (Klonopin -) 1 mg PO TID [facility] Last Admin: 02/12/17 23:12 Dose: 1 mg Digoxin (Lanoxin -) 0.125 mg PO DAILY [facility] Last Admin: 02/12/17 09:15 Dose: 0.125 mg Diltiazem HCl (Cardizem -) 90 mg PO Q6HPO [facility] Last Admin: 02/12/17 23:13 Dose: 90 mg Furosemide (Lasix Injection -) 40 mg IVPUSH DAILY [facility] Last Admin: 02/12/17 09:15 Dose: 40 mg Gabapentin (Neurontin -) 300 mg PO TID [facility] Last Admin: 02/12/17 23:12 Dose: 300 mg Guaifenesin/Codeine Phosphate (Robitussin Ac -) 5 ml PO TID PRN PRN Reason: COUGH Last Admin: 02/12/17 23:11 Dose: 5 ml Amiodarone HCl/Dextrose (Nexterone 360 Mg/200 Ml Bag) 360 mg in 200 mls @ 33.333 mls/hr IVPB TITR [facility]; 1 MG/MIN PRN Reason: Protocol Amiodarone HCl/Dextrose (Nexterone 360 Mg/200 Ml Bag) 360 mg in 200 mls @ 33.333 mls/hr IVPB TITR [facility]; 1 MG/MIN PRN Reason: Protocol Ibuprofen (Motrin -) 600 mg PO Q6H PRN PRN Reason: FEVER Levetiracetam (Keppra -) 500 mg PO BID [facility] Last Admin: 02/12/17 23:12 Dose: 500 mg Methadone HCl (Dolophine -) 50 mg PO DAILY@0600 [facility] Last Admin: 02/12/17 05:36 Dose: 50 mg Methylprednisolone Sodium Succinate (Solu-Medrol -) 60 mg IVPUSH Q8H-IV [facility] Last Admin: 02/12/17 17:02 Dose: 60 mg Mupirocin (Bactroban Ointment (For Decolonization) -) 1 applic NS BID [facility] Stop: 02/18/17 09:59 Nicotine (Nicoderm Patch -) 21 mg TD DAILY [facility] Last Admin: 02/12/17 09:15 Dose: 21 mg Oxycodone HCl (Roxicodone -) 5 mg PO Q6H PRN PRN Reason: PAIN Quetiapine Fumarate 100 mg/ (Quetiapine Fumarate 200 mg) 300 mg PO HS [facility] Last Admin: 02/12/17 23:13 Dose: 300 mg Rivaroxaban (Xarelto -) 20 mg PO DAILY [facility] Last Admin: 02/12/17 09:15 Dose: 20 mg - Past Medical History Cardio/Vascular: Yes: AFIB, HTN, Hyperlipdemia Pulmonary: Yes: COPD Gastrointestinal: Yes: Other (HEP C) Hepatobiliary: Yes: Hepatitis C ...: No Infectious Disease: Yes: Other (recent hx of admission to the hosp for pneumonia ) Psych: Yes: Addictions (WAS ON 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), Anxiety Musculoskeletal: Yes: Chronic low back pain Endocrine: Yes: Other (benign adrenal nodule s/p bx) - Alcohol/Substance Use Hx Alcohol Use: No History of Substance Use: reports: None - Smoking History Smoking history: Never smoked Have you smoked in the past 12 months: Yes Aproximately how many cigarettes per day: 0 If you are a former smoker, when did you quit?: 03-17-13 - Social History Usual Living Arrangement: Alone (considered w/a terminally ill condition which enables her get the single room she is currently in.) History of Recent Travel: No Home Medications - Allergies Allergies/Adverse Reactions: Allergies Allergy/AdvReac Type Severity Reaction Status Date / Time No Known Allergies Allergy Verified 02/07/17 11:33 - Home Medications Home Medications: Ambulatory Orders Methadone [Dolophine -] 50 mg PO DAILY 10/19/14 Tiotropium [place] [Spiriva] 1 inh PO BID 10/19/14 Albuterol Sulfate Inhaler - [Ventolin HFA Inhaler -] 2 inh PO Q4H PRN 12/08/15 Gabapentin [Neurontin] 300 mg PO TID 07/08/16 Albuterol 2.5/Ipratropium 0.5 [Duoneb -] 1 amp NEB Q6H PRN #30 amp 07/16/16 Digoxin [Lanoxin -] 0.125 mg PO DAILY #30 tablet 07/16/16 Levetiracetam [Keppra -] 500 mg PO BID #60 tab 07/16/16 Propranolol HCl [Inderal LA -] 120 mg PO DAILY #30 cap 07/16/16 Rivaroxaban [Xarelto -] 20 mg PO DAILY #7 tab 08/29/16 Diltiazem [Cardizem -] 90 mg PO QID 11/24/16 Quetiapine Fumarate [Seroquel -] 300 mg PO HS 11/25/16 Rivaroxaban [Xarelto] 20 mg PO DAILY 11/25/16 Furosemide [Lasix -] 40 mg PO DAILY #14 tablet 11/28/16 Prednisone [Deltasone -] 30 mg PO DAILY #12 tablet 11/28/16 Family Disease History - Family Disease History Family Disease History: Other: Father (ETOH DEPENDENT), Mother (HAD CVA AND ) Physical Exam Vital Signs: Vital Signs Temperature 98.9 F 02/12/17 21:00 Pulse Rate 184 H 02/13/17 00:00 Respiratory Rate 20 02/12/17 21:00 Blood Pressure 157/86 02/12/17 21:00 O2 Sat by Pulse Oximetry (%) 95 02/12/17 09:00 Constitutional: Yes: Anxious Eyes: Yes: WNL Cardiovascular: Yes: Tachycardia, Pulse Irregular Respiratory: Yes: Diminished, On BiPap Gastrointestinal: Yes: WNL Edema: No Neurological: Yes: Alert Labs: CBC, BMP 02/09/17 05:45 02/12/17 12:40 Assessment/Plan COPD exacerbation Afib with RVR Methadone maintenance Anxiety -cont bronchodilators -cont steroids -cont BiPAP -cardiology following -amio drip -cont PO cardizem -cardizem IV prn -cont AC -cont Methadone -cont Klonopin and Seroquel -will need better IV access once more stable [facility] Critical Care time: 90 minutes
[2017-02-13] MEDS: DILTIAZEM INJECTION 125 MG in DEXTROSE 5%-WATER - 100 ML IVPB SCH (02:00)
[2017-02-13] MEDS ORDERED: MIDAZOLAM HCL 2 MG/2 ML SINGLE DOSE VIAL IVPUSH ONE ×2 (02:04→13:07)
[2017-02-13] MEDS ORDERED: dilTIAZem HCL 50 MG/10 ML - 10 ML VIAL IVPUSH ONE (02:04)
[2017-02-13] MEDS ORDERED: MIDAZOLAM HCL 2 MG/2 ML SINGLE DOSE VIAL ONE ×2 (02:07→13:35)
--- NOTE | 2017-02-13 02:12 | RAPID ---
Physical Examination Vital Signs: Rapid response was called by RN for HR . 180. patient seen and examined. 67 female with h/o HTN, COPD, lung ca s/p resection, Buerger's disease, atrial fibrillation on anticoagulation, Hep C, methadone maintenance who was initially admitted on 02/07 with SOB thought to be 2/2 COPD exacerbation. Overnight pt went into rapid afib with RVR, HR in 200s. patient sitting on bed, complaining of sob, diaphoretic. GEn : awake, alert, diphoretic, acute distress. Chest: b/l decrease air entry, no wheez, no crackels. CVS; sis2 normal, irregular, tachycardia. Selected Entries 02/12/17 02/13/17 02/13/17 23:45 00:00 00:05 Pulse Rate 198 H 184 H 169 H Respiratory 40 H 36 H 42 H Rate Blood Pressure 125/79 92/45 104/72 Selected Entries 02/12/17 02/13/17 02/13/17 23:45 00:00 00:05 Pulse Rate 198 H 184 H 169 H Respiratory 40 H 36 H 42 H Rate Blood Pressure 125/79 92/45 104/72 Laboratory Tests 02/12/17 12:40 Sodium 133 L Chloride 94 L Anion Gap 8 BUN 33 H Random Glucose 326 H* D Calcium 8.2 L Magnesium 2.6 H cardiazem 10mg was given, after cardiazem patient BP dropped to borderline and digoxin was given. case discussed with Dr painting, Plan: cmp, mg, ekg, agb, start on bipap if patient BP tolerates cariazem then continue with it if her BP is low can be started on amiadarone. ( patient is already on xarelto 20mgdaily) monitor vitals. Labs: CBC, BMP 02/09/17 05:45 02/12/17 12:40
--- NOTE | 2017-02-13 02:13 | HOSP ---
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 with chest pain and states she is anxious Physical: CARD: IRR S1, S2 RESP: Decreased Breath sounds ABD: Obese Afib w RVR - Cardizem prn - Echo if not already done - Cardizem gtt as BP allows Rest as per resident note CC Time: 42 Minutes Physical Examination Vital Signs: Vital Signs Temperature 97.4 F L 02/12/17 23:45 Pulse Rate 169 H 02/13/17 00:05 Respiratory Rate 42 H 02/13/17 00:05 Blood Pressure 104/72 02/13/17 00:05 O2 Sat by Pulse Oximetry (%) 97 02/12/17 21:00 Labs: CBC, BMP 02/09/17 05:45 02/12/17 12:40
[2017-02-13] MEDS ORDERED: AMIODARONE HCL INJECTION 450 MG in DEXTROSE 5%-WATER - 250 ML IVPB SCH ×2 (02:15→08:15)
[2017-02-13] MEDS ORDERED: guaiFENesin/CODEINE 5 ML UNIT-DOSE CUPS PO PRN (02:33)
[2017-02-13] MEDS ORDERED: ALBUTEROL SO4 18 GM HFA INHALER IH PRN (02:33)
[2017-02-13 03:07] LABS: ARTERIAL BLOOD GAS BASE EXCESS 2.7 meq/l (-2-2); ARTERIAL BLOOD GAS HCO3 28.1 meq/L (22-26); ARTERIAL BLOOD GAS pH 7.38 (7.35-7.45)
[2017-02-13 03:26] LABS: ANION GAP 9 (8-16); CALCIUM 9.7 mg/dL (8.5-10.1); CO2 27 mmol/L (21-32); CREATININE 1.3 mg/dL (0.55-1.02); GLUCOSE,RANDOM 97 mg/dL (74-106); MAGNESIUM 1.7 mg/dL (1.8-2.4); PHOSPHOROUS 2.9 mg/dL (2.5-4.9)
[2017-02-13 03:29] LABS: CPK 154 IU/L (26-192); TROPONIN I 0.02 ng/ml (0.00-0.05)
[2017-02-13] MEDS ORDERED: METHADONE HCL 10 MG TABLET PO SCH (06:00)
[2017-02-13] MEDS ORDERED: dilTIAZem HCL 30 MG TABLET (FP) PO SCH (06:00)
[2017-02-13] MEDS ORDERED: METHADONE HCL 10 MG TABLET ONE (06:54)
[2017-02-13] MEDS ORDERED: METHADONE HCL 40 MG DISPERSABLE TABLET ONE (06:54)
[2017-02-13] MEDS ORDERED: dilTIAZem HCL 30 MG TABLET (FP) ONE ×4 (06:55→23:19)
[2017-02-13] MEDS ORDERED: dilTIAZem HCL 60 MG TABLET (FP) ONE ×4 (06:55→23:19)
[2017-02-13] MEDS: METHADONE 40 MG, METHADONE 10 MG PO SCH (06:57)
[2017-02-13] MEDS: DILTIAZEM 60 MG, DILTIAZEM 30 MG PO SCH ×4 (06:57→23:23)
[2017-02-13] MEDS: clonazePAM 0.5 MG TABLET PO SCH ×3 (06:57→21:24)
[2017-02-13] MEDS: GABAPENTIN 300 MG CAPSULE (FP) PO SCH ×3 (06:58→21:11)
[2017-02-13 07:01] LABS: ANION GAP 7 (8-16); CALCIUM 7.7 mg/dL (8.5-10.1); CO2 30 mmol/L (21-32); CREATININE 1.4 mg/dL (0.55-1.02); GLUCOSE,RANDOM 222 mg/dL (74-106)
[2017-02-13 07:08] LABS: THYROID STIMULATING HORMONE 0.07 uIU/ml (0.358-3.74)
[2017-02-13 08:38] LABS: MCH 29.3 pg (25.7-33.7); MCHC 31.4 g/dl (32.0-36.0); MEAN CELL VOLUME 93.4 fl (80-96); MEAN PLT VOLUME 8.9 fl (7.5-11.1); RDW 17.4 % (11.6-15.6)
[2017-02-13] MEDS ORDERED: PT OWN MED DRAWER 7, Y5N ONE (09:03)
[2017-02-13] MEDS: levETIRAcetam 500 MG TABLET (FP) PO SCH ×2 (09:39→21:24)
[2017-02-13] MEDS: DIGOXIN 0.125 MG TABLET (FP) PO SCH (09:39)
[2017-02-13] MEDS: MUPIROCIN 2% TOPICAL OINTMENT FOR DECOLONIZATION NS SCH ×2 (09:39→22:23)
[2017-02-13] MEDS: FUROSEMIDE 40 MG/4 ML INJECTABLE VIAL IVPUSH SCH (09:40)
[2017-02-13] MEDS: NICOTINE 21 MG/24 HOURS TOPICAL PATCH TD SCH (09:40)
[2017-02-13] MEDS: methylPREDNISolone NA SUCC 125 MG/2 ML VIAL IVPUSH SCH ×2 (09:43→17:28)
[2017-02-13] MEDS: RIVAROXABAN 20 MG TABLET PO SCH (09:44)
[2017-02-13] MEDS ORDERED: MUPIROCIN 2% TOPICAL OINTMENT FOR DECOLONIZATION NS SCH (10:00)
[2017-02-13] MEDS ORDERED: MAGNESIUM SULF 50% (8.12 MEQ/2 ML-1 GM VIAL) IVPB ONE (10:45)
--- NOTE | 2017-02-13 11:49 | PN ---
Progress Note (short form) - Note Progress Note: Chief Complaint: sob History of Present Illness: rvr overnight, on dilt gtt now remains very sob and coughing, worse today per pt still pleuritic cp peter when coughs. sometimes feels palpitations. no dizziness leg swelling remains Current Medications Generic Name Dose Route Start Last Admin Trade Name Freq PRN Reason Stop Dose Admin Albuterol Sulfate 2 puff 02/13/17 02:33 Ventolin Hfa Inhaler - IH Q4H PRN SHORT OF BREATH/WHEEZING Chlorhexidine Gluconate 1 applic 02/13/17 22:00 Hibiclens For Decolonization - TP HS LORRIE Clonazepam 1 mg 02/13/17 06:00 02/13/17 06:57 Klonopin - PO 1 mg TID LORRIE Administration Digoxin 0.125 mg 02/13/17 10:00 02/13/17 09:39 Lanoxin - PO 0.125 mg DAILY L[facility]E Administration Diltiazem HCl 60 mg/ Diltiazem 90 mg 02/13/17 06:00 02/13/17 06:57 HCl 30 mg PO 90 mg Q6HPO [facility]E Administration Furosemide 40 mg 02/13/17 10:00 02/13/17 09:40 Lasix Injection - IVPUSH 40 mg DAILY [facility]E Administration Gabapentin 300 mg 02/13/17 06:00 02/13/17 06:58 Neurontin - PO 300 mg TID L[facility]RIE Administration Guaifenesin/Codeine Phosphate 5 ml 02/13/17 02:33 Robitussin Ac - PO TID PRN COUGH Diltiazem HCl 125 mg/ Dextrose 125 mls @ 5 mls/hr 02/13/17 02:00 02/13/17 03: 16 IVPB 0 mg/hr TITR LORRIE 0 mls/hr Protocol Titration 5 MG/HR Ibuprofen 600 mg 02/13/17 02:33 Motrin - PO Q6H PRN FEVER Levetiracetam 500 mg 02/13/17 10:00 02/13/17 09:39 Keppra - PO 500 mg BID L[facility]E Administration Methadone HCl 40 mg/ Methadone 50 mg 02/13/17 06:00 02/13/17 06:57 HCl 10 mg PO 50 mg DAILY@0600 [facility] Administration Methylprednisolone Sodium Succinate 60 mg 02/13/17 10:00 02/13/17 09:43 Solu-Medrol - IVPUSH 60 mg Q8H-IV [facility]E Administration Mupirocin 1 applic 02/13/17 10:00 02/13/17 09:39 Bactroban Ointment (For Decolonization) - NS 02/18/17 09:59 Not Given BID L[facility]RIE Nicotine 21 mg 02/13/17 10:00 02/13/17 09:40 Nicoderm Patch - TD 21 mg DAILY [facility] Administration Oxycodone HCl 5 mg 02/13/17 02:33 Roxicodone - PO Q6H PRN PAIN Quetiapine Fumarate 100 mg/ 300 mg 02/13/17 22:00 Quetiapine Fumarate 200 mg PO HS L[facility]RIE Rivaroxaban 20 mg 02/13/17 10:00 02/13/17 09:44 Xarelto - PO 20 mg DAILY L[facility]E Administration - Objective Vital Signs: Vital Signs Temp 98.7 F 02/13/17 10:00 Pulse 96 H 02/13/17 10:29 Resp 17 02/13/17 10:00 BP 108/95 02/13/17 10:00 Pulse Ox 97 02/13/17 10:29 Intake & Output 02/12/17 02/12/17 02/13/17 11:59 23:59 11:59 Intake Total 200 1560 110 Output Total 550 450 Balance 200 1010 -340 Weight 192 lb 8 oz 202 lb 1 oz Intake: IV 70 10 Cardizem Injection - 125 10 mg In D5w - 100 ml @ 5 MG /HR 5 mls/hr IVPB TITR LORRIE Rx#:[id number] RIGHT FOREARM 70 Oral 200 1490 100 Output: Urine 550 450 Jha 450 Void 550 Other: Voiding Method Toilet Toilet Indwelling Catheter # Unmeasured Voids Void 2 Bowel Movement No Weight Measurement Method Standing Scale Built in Bedscale anxious, conversational dyspnea jvd flat, neck supple + diffuse wheezes, nl effort rate controlled, irregular nl s1, s2 no mrg + bs soft nt nd trace edema. no cyanosis, clubbing. + dp/pt no jaundice, diaphoresis. aaox3 Labs: Laboratory Last Values WBC 50.0 K/mm3 (4.0-10.0) H* D 02/13/17 06:20 RBC 4.40 M/mm3 (3.60-5.2) 02/13/17 06:20 Hgb 12.9 GM/dL (10.7-15.3) 02/13/17 06:20 Hct 41.1 % (32.4-45.2) 02/13/17 06:20 MCV 93.4 fl (80-96) 02/13/17 06:20 MCH 29.3 pg (25.7-33.7) 02/13/17 06:20 MCHC 31.4 g/dl (32.0-36.0) L 02/13/17 06:20 RDW 17.4 % (11.6-15.6) H 02/13/17 06:20 Plt Count 228 K/MM3 (134-434) 02/13/17 06:20 MPV 8.9 fl (7.5-11.1) 02/13/17 06:20 Neutrophils % No Result Required. 02/13/17 06:20 Lymphocytes % No Result Required. 02/13/17 06:20 Monocytes % 3.4 % (3.8-10.2) L 02/09/17 05:45 Eosinophils % 0.0 % (0-4.5) D 02/09/17 05:45 Basophils % 0.2 % (0-2.0) 02/09/17 05:45 PT with INR 14.60 SEC (9.98-11.88) H 02/07/17 11:33 INR 1.29 (0.82-1.09) H 02/07/17 11:33 PTT (Actin FS) 28.3 SECONDS (26.9-34.4) 02/07/17 11:33 Anticoagulation Therapy Y 02/13/17 02:30 Puncture Site Y 02/13/17 02:30 ABG pH 7.38 (7.35-7.45) 02/13/17 02:30 ABG pCO2 at Pt Temp 48.5 mmHg (35-45) H 02/13/17 02:30 ABG pO2 at Pt Temp 294.0 mmHg (80-100) H* 02/13/17 02:30 ABG HCO3 28.1 meq/L (22-26) H 02/13/17 02:30 ABG O2 Sat (Measured) 100.0 % (90-98.9) H* 02/13/17 02:30 ABG O2 Content 19.8 % vol (15-22) 02/13/17 02:30 ABG Base Excess 2.7 meq/l (-2-2) H 02/13/17 02:30 Samir Test Y 02/13/17 02:30 O2 Delivery Device Y 02/13/17 02:30 Oxygen Flow Rate Y 02/13/17 02:30 Vent Mode Y 02/13/17 02:30 Vent Rate Y 02/13/17 02:30 Mechanical Rate Y 02/13/17 02:30 PEEP 0.0 cmH2O 02/07/17 13:40 Pressure Support Vent Y 02/13/17 02:30 Sodium 137 mmol/L (136-145) 02/13/17 06:20 Potassium 4.5 mmol/L (3.5-5.1) 02/13/17 06:20 Chloride 100 mmol/L (98-107) 02/13/17 06:20 Carbon Dioxide 30 mmol/L (21-32) 02/13/17 06:20 Anion Gap 7 (8-16) L 02/13/17 06:20 BUN 41 mg/dL (7-18) H D 02/13/17 06:20 Creatinine 1.4 mg/dL (0.55-1.02) H 02/13/17 06:20 Creat Clearance w eGFR 55.82 (>60) 02/08/17 00:00 Random Glucose 222 mg/dL (74-106) H D 02/13/17 06:20 Calcium 7.7 mg/dL (8.5-10.1) L D 02/13/17 06:20 Phosphorus 2.9 mg/dL (2.5-4.9) D 02/13/17 02:30 Magnesium 1.7 mg/dL (1.8-2.4) L D 02/13/17 02:30 Total Bilirubin 0.5 mg/dL (0.2-1.0) D 02/08/17 00:00 AST 17 U/L (15-37) 02/08/17 00:00 ALT 24 U/L (12-78) 02/08/17 00:00 Alkaline Phosphatase 63 U/L (45-117) 02/08/17 00:00 Creatine Kinase 154 IU/L (26-192) 02/13/17 02:30 Creatine Kinase Index 1.0 % (0.0-5.0) 02/13/17 02:30 CK-MB (CK-2) 1.682 ng/mL (0.5-3.6) 02/13/17 02:30 Troponin I 0.02 ng/ml (0.00-0.05) 02/13/17 02:30 B-Natriuretic Peptide 4214.40 pg/ml (5-125) H 02/07/17 11:33 Total Protein 7.6 g/dl (6.4-8.2) 02/08/17 00:00 Albumin 2.9 g/dl (3.4-5.0) L 02/08/17 00:00 TSH 0.07 uIU/ml (0.358-3.74) L D 02/13/17 06:20 Urine Color Ltyellow 02/08/17 16:30 Urine Appearance Clear 02/08/17 16:30 Urine pH 5.0 (5.0-8.0) 02/08/17 16:30 Ur Specific [place] 1.010 (1.001-1.035) 02/08/17 16:30 Urine Protein Negative (NEGATIVE) 02/08/17 16:30 Urine Glucose (UA) 1+ (NEGATIVE) H 02/08/17 16:30 Urine Ketones Negative (NEGATIVE) 02/08/17 16:30 Urine Blood 1+ (NEGATIVE) H 02/08/17 16:30 Urine Nitrite Negative (NEGATIVE) 02/08/17 16:30 Urine Bilirubin Negative (NEGATIVE) 02/08/17 16:30 Urine Urobilinogen Negative mg/dL (0.2-1.0) 02/08/17 16:30 Ur Leukocyte Esterase Negative (NEGATIVE) 02/08/17 16:30 Urine WBC (Auto) <1 /hpf (3-5) 02/08/17 16:30 Urine RBC (Auto) <1 /hpf (0-3) 02/08/17 16:30 Ur Epithelial Cells Rare /HPF (FEW) 02/08/17 16:30 Hyaline Casts 2 /lpf 02/08/17 16:30 Urine Mucus Rare 02/08/17 16:30 Digoxin 0.8952 ng/ml (0.8-2.0) 02/12/17 12:40 - ....Imaging EKG: Other (tele: afib, HR mostly 90s (rvr intermittently) Echo 11/2016: tds; low nl lvef, nl rv, alla, mild-mod mr/tr, Echo 07/2016: nl lv/rv. 1+ lae, 1+ mr/tr cxr: no sig change prior a/p: 66 yo smoker with h/o pafib on xarelto, htn, prior pe, copd, anxiety, lung cancer resected August 2012 at [facility] (no h/o of RT or chemo), polysubstance abuse on methadone maintenance , RA, Hep C, thyroid nodules, buergers disaese who p/w worsening sob and afib with rvr. atrial fibrillation -CHADS VASC 2--has been maintained on AC (xarelto at home), due to hypercoagulable hx with mult VTEs -see notes from prior admits--mult attempts made to coordinate pt's care with her PMD and have her f/u with us in office to minimize risks of tachy-CMP or falls/ICH on AC, but she has been non-compliant. (AC continued by PMD due to VTEs hx previously (including recently) and need for indefinite AC per prior evaluations. not a candidate for LA appendage closure/Watchman as she has non- afib indication for AC) -frequently rapid AF rates on prior admits during episodes of a.e. copd - 02/08 still with frequent breakthrough RVR to 120's with episodes of frequent agitation/frustration. Will plan on transitioning from diltiazem drip to po diltiazem this evening when she is due to receive her pain/sleep/anxiety medications. Would start short acting diltiazem and uptitrate. Con't dig. Hold off on propanolol while with copd exacerbation. Consider resuming once she has further improvement in sx's of sob. Dig level in am. - 02/09: Agitation improving. PO diltiazem uptitrated to 60 q6h last night. Will increase further to 90 mg q6h. Digoxin level low --> will give extra dose of .125 mcg IV x 1. Patient still with significant sx's from copd exacerbation --> too early to add back beta blockade. Will reevalute tomorrow. -12/10: HRs reasonably controlled on diltiazm 90 q6h, with brief rises to 130s in setting of dyspnea, cough pleuritic cp and steroids triggers. same meds, observe tele -02/11-02/12: HRs same, cont same meds. would not plan to resume BB given frequent admits here with bronchospasm, discussed with pulm. Ongoing treatment of underlying lung disease. Agitation improved. Repeat dig level today therapeutic. lyte repletion prn. -02/13: rvr overnight, started on dilt gtt with improved HR. cont for now and titrate down if HR stable on dig and po dilt. No bb 2/2 copd. Cont tele. - would not pursue AVN ablation and PM unless she shows persistent rapid HRs even when pulm status is stable, or admits for sx's clearly attributable to rapid HRs (including if HFpEF) a.e. copd - no signs acs. ce's neg x 2. Ekg without acute ischemic changes. - mgm't of copd per pulm/pmd - diuresis as mentioned below acute diastolic CHF - prior dry weight have ranged from 180-190. daily standing weights. I/O's. - some mild vol overload/sob likely due to rvr with possible contribution from volume retention 2/2 prednisone. - cont rate control as above - 02/09: standing weight today elevated above dry weight, will diurese with lasix 40 mg IV daily. daily bmp. - 02/12-: Will con't iv lasix for now, may able to transition to PO in the next day or so if cr continues to rise h/o DVT and PE: -on AC. HTN: - overall controlled with intermittent elevations. If remains elevated, may need to uptitrate regimen while on steroids. h/o heroin abuse: -on methadone maintenance + tob - smoking cessation counselled here
[2017-02-13 12:02] LABS: ANISOCYTOSIS 0; BAND % 10.6 %; HYPOCHROMIA 0; MACROCYTOSIS 0; METAMYELOCYTE 0 % (0-2); MICROCYTOSIS 0; MYELOCYTE 0 % (0-2); POIKILOCYTOSIS 3+; POLYCHROMASIA 0; REACTIVE LYMPHOCYTES 0 % (0-80)
[2017-02-13 12:12] LABS: PLATELET COMMENTS PRESENT; TOTAL CELLS COUNTED 100
[2017-02-13] MEDS: NYSTATIN 500,000 UNITS/5 ML SUSPENSION PO SCH ×2 (12:48→17:26)
--- NOTE | 2017-02-13 13:40 | EKG ---
Test Reason : Blood Pressure : / mmHG Vent. Rate : 178 BPM Atrial Rate : 214 BPM P-R Int : 000 ms QRS Dur : 074 ms QT Int : 256 ms P-R-T Axes : 000 017 230 degrees QTc Int : 440 ms POOR DATA QUALITY, INTERPRETATION MAY BE ADVERSELY AFFECTED ATRIAL FIBRILLATION WITH RAPID VENTRICULAR RESPONSE MARKED ST ABNORMALITY, POSSIBLE INFEROLATERAL SUBENDOCARDIAL INJURY ABNORMAL ECG WHEN COMPARED WITH ECG OF 07-FEB-2017 15:25, ST MORE DEPRESSED LATERAL LEADS Confirmed by LYNNE MCLEOD MD ([id number]) on 02/13/2017 1:39:49 PM Referred By: Confirmed By:LYNNE MCLEOD MD
--- NOTE | 2017-02-13 16:54 | PROC ---
Central Line Insertion Indication: Poor Venous Access Risks and Benefits Explained: Yes Consent on Chart: Yes Central Line: Triple Lumen Catheter Anesthesia: 1% Lidocaine Sterile Technique: Yes Ultrasound Guided Assistance: Yes Position: Right Internal Jugular Post Insertion: Yes: Bilateral Breath Sounds Sterile Dressing Applied: Yes
--- NOTE | 2017-02-13 17:10 | PN ---
Physical Exam: SUBJECTIVE: Patient seen and examined at bedside. Pt complains of chest discomfort at her baseline. Pt came to ICU with AF w/ RVR to the 200s. At this time, pt's rate is controlled. NAD, hemodynamically stable, O2 sats are good, afebrile. OBJECTIVE: Vital Signs Period Temp Pulse Resp BP Sys/Smyth Pulse Ox Last 24 Hr 97.4 F-98.9 F 92-198 12-42 75-157/45-95 95-98 GENERAL: The patient is awake, alert, and fully oriented, in no acute distress. Anxious HEAD: Normal with no signs of trauma. EYES: sclera anicteric, conjunctiva clear. No ptosis. ENT: oropharynx clear without exudates, moist mucous membranes. NECK: Trachea midline, full range of motion, supple. LUNGS: Coarse breath sounds diffusely. pos wheezes HEART: irregular rate and rhythm, S1, S2 without murmur, rub or gallop. ABDOMEN: Soft, nontender, nondistended, normoactive bowel sounds, no guarding, no rebound, no hepatosplenomegaly, no masses. EXTREMITIES: 2+ pulses, warm, well-perfused, no edema. NEUROLOGICAL:Normal speech, gait not observed. PSYCH: Anxious normal affect. SKIN: Warm, dry, normal turgor, no rashes or lesions noted Laboratory Results - last 24 hr 02/13/17 02/13/17 02/13/17 02:30 02:30 02:30 WBC RBC Hgb Hct MCV MCH MCHC RDW Plt Count MPV Total Counted Neutrophils % Neutrophils % (Manual) Band Neutrophils % Lymphocytes % Lymphocytes % (Manual) Monocytes % (Manual) Eosinophils % (Manual) Basophils % (Manual) Myelocytes % (Man) Metamyelocytes Hypochromia Platelet Comment Polychromasia Poikilocytosis Anisocytosis Microcytosis Macrocytosis Anticoagulation Therapy Y Puncture Site Y ABG pH 7.38 ABG pCO2 at Pt Temp 48.5 H ABG pO2 at Pt Temp 294.0 H* ABG HCO3 28.1 H ABG O2 Sat (Measured) 100.0 H* ABG O2 Content 19.8 ABG Base Excess 2.7 H Samir Test Y O2 Delivery Device Y Oxygen Flow Rate Y Vent Mode Y Vent Rate Y Mechanical Rate Y Pressure Support Vent Y Sodium 141 Potassium 3.9 Chloride 105 D Carbon Dioxide 27 Anion Gap 9 BUN 15 D Creatinine 1.3 H Random Glucose 97 D Calcium 9.7 Phosphorus 2.9 D Magnesium 1.7 L D Creatine Kinase 154 Creatine Kinase Index 1.0 CK-MB (CK-2) 1.682 Troponin I 0.02 TSH 0.16 L D 02/13/17 02/13/17 06:20 06:20 WBC 50.0 H* D RBC 4.40 Hgb 12.9 Hct 41.1 MCV 93.4 MCH 29.3 MCHC 31.4 L RDW 17.4 H Plt Count MPV 8.9 Total Counted 100 Neutrophils % No Result Required. Neutrophils % (Manual) 85.8 H Band Neutrophils % 10.6 Lymphocytes % No Result Required. Lymphocytes % (Manual) 1.8 L Monocytes % (Manual) 2 L Eosinophils % (Manual) 0.0 Basophils % (Manual) 0.0 Myelocytes % (Man) 0 Metamyelocytes 0 Hypochromia 0 Platelet Comment Present Polychromasia 0 Poikilocytosis 3+ Anisocytosis 0 Microcytosis 0 Macrocytosis 0 Anticoagulation Therapy Puncture Site ABG pH ABG pCO2 at Pt Temp ABG pO2 at Pt Temp ABG HCO3 ABG O2 Sat (Measured) ABG O2 Content ABG Base Excess Samir Test O2 Delivery Device Oxygen Flow Rate Vent Mode Vent Rate Mechanical Rate Pressure Support Vent Sodium 137 Potassium 4.5 Chloride 100 Carbon Dioxide 30 Anion Gap 7 L BUN 41 H D Creatinine 1.4 H Random Glucose 222 H D Calcium 7.7 L D Phosphorus Magnesium Creatine Kinase Creatine Kinase Index CK-MB (CK-2) Troponin I TSH 0.07 L D Active Medications Generic Name Dose Route Start Last Admin Trade Name Freq PRN Reason Stop Dose Admin Albuterol Sulfate 2 puff 02/13/17 02:33 Ventolin Hfa Inhaler - IH Q4H PRN SHORT OF BREATH/WHEEZING Chlorhexidine Gluconate 1 applic 02/13/17 22:00 Hibiclens For Decolonization - TP HS LORRIE Clonazepam 1 mg 02/13/17 06:00 02/13/17 13:09 Klonopin - PO 1 mg TID LORRIE Administration Digoxin 0.125 mg 02/13/17 10:00 02/13/17 09:39 Lanoxin - PO 0.125 mg DAILY LORRIE Administration Diltiazem HCl 60 mg/ Diltiazem 90 mg 02/13/17 06:00 02/13/17 12:52 HCl 30 mg PO 90 mg Q6HPO LORRIE Administration Furosemide 40 mg 02/13/17 10:00 02/13/17 09:40 Lasix Injection - IVPUSH 40 mg DAILY L[facility]RIE Administration Gabapentin 300 mg 02/13/17 06:00 02/13/17 13:09 Neurontin - PO 300 mg TID LORRIE Administration Guaifenesin/Codeine Phosphate 5 ml 02/13/17 02:33 Robitussin Ac - PO TID PRN COUGH Diltiazem HCl 125 mg/ Dextrose 125 mls @ 5 mls/hr 02/13/17 02:00 02/13/17 03: 16 IVPB 0 mg/hr TITR LORRIE 0 mls/hr Protocol Titration 5 MG/HR Ibuprofen 600 mg 02/13/17 02:33 Motrin - PO Q6H PRN FEVER Levetiracetam 500 mg 02/13/17 10:00 02/13/17 09:39 Keppra - PO 500 mg BID L[facility]RIE Administration Methadone HCl 40 mg/ Methadone 50 mg 02/13/17 06:00 02/13/17 06:57 HCl 10 mg PO 50 mg DAILY@0600 LORRIE Administration Methylprednisolone Sodium Succinate 60 mg 02/13/17 10:00 02/13/17 09:43 Solu-Medrol - IVPUSH 60 mg Q8H-IV [facility]E Administration Mupirocin 1 applic 02/13/17 10:00 02/13/17 09:39 Bactroban Ointment (For Decolonization) - NS 02/18/17 09:59 Not Given BID [facility] Nicotine 21 mg 02/13/17 10:00 02/13/17 09:40 Nicoderm Patch - TD 21 mg DAILY LORRIE Administration Nystatin 500,000 units 02/13/17 12:00 02/13/17 12:48 Nystatin Oral Suspension - PO 500,000 units Q6HPO L[facility]RIE Administration Oxycodone HCl 5 mg 02/13/17 02:33 Roxicodone - PO Q6H PRN PAIN Quetiapine Fumarate 100 mg/ 300 mg 02/13/17 22:00 Quetiapine Fumarate 200 mg PO HS LORRIE Rivaroxaban 20 mg 02/13/17 10:00 02/13/17 09:44 Xarelto - PO 20 mg DAILY LORRIE Administration ASSESSMENT/PLAN: Pt is a 67 F w/ PMH HTN, COPD, lung ca s/p resection, Buerger's disease, atrial fibrillation on anticoagulation, Hep C, methadone maintenance who was initially admitted on 02/07 with SOB thought to be 2/2 COPD exacerbation. Pt was brought to ICU with rapid afib w/ RVR requiring ICU care. Cardio #Afib w/ RVR -Rate went to 200s -Pt was transferred to ICU -Cardizem and Amio controlled rate -Currently stable -on Xarelto -Cardio on board -Cardizem Pulm #COPD -bronchodilators -steroids -supplemental O2 as needed Dependence -On methadone FEN -not on fluid -lytes wnl -Na controlled diet PPx -on Xarelto Dispo -transfer to [facility] Denny Golden MD PGY-1 ICU Visit type - Emergency Visit Emergency Visit: No - New Patient This patient is new to me today: Yes Date on this admission: 02/13/17 - Critical Care Critical Care patient: Yes Total Critical Care Time (in minutes): 42 Critical Care Statement: The care of this patient involved high complexity decision making to prevent further life threatening deterioration of the patient 's condition and/or to evaluate & treat vital organ system(s) failure or risk of failure. - Discharge Referral Referred to [facility] Med P.C.: No
[2017-02-13] MEDS: oxyCODONE HCL 5 MG TABLET PO PRN (17:26)
--- NOTE | 2017-02-13 18:42 | PN ---
Progress Note, Physician History of Present Illness: feeling better - Current Medication List Current Medications: Active Medications Albuterol Sulfate (Ventolin Hfa Inhaler -) 2 puff IH Q4H PRN PRN Reason: SHORT OF BREATH/WHEEZING Chlorhexidine Gluconate (Hibiclens For Decolonization -) 1 applic TP HS [facility] Clonazepam (Klonopin -) 1 mg PO TID [facility] Last Admin: 02/13/17 13:09 Dose: 1 mg Digoxin (Lanoxin -) 0.125 mg PO DAILY [facility] Last Admin: 02/13/17 09:39 Dose: 0.125 mg Diltiazem HCl 60 mg/ Diltiazem (HCl 30 mg) 90 mg PO Q6HPO [facility] Last Admin: 02/13/17 17:27 Dose: 90 mg Furosemide (Lasix Injection -) 40 mg IVPUSH DAILY [facility] Last Admin: 02/13/17 09:40 Dose: 40 mg Gabapentin (Neurontin -) 300 mg PO TID [facility] Last Admin: 02/13/17 13:09 Dose: 300 mg Guaifenesin/Codeine Phosphate (Robitussin Ac -) 5 ml PO TID PRN PRN Reason: COUGH Diltiazem HCl 125 mg/ Dextrose 125 mls @ 5 mls/hr IVPB TITR LORRIE; 5 MG/HR PRN Reason: Protocol Last Titration: 02/13/17 03:16 Dose: 0 mg/hr, 0 mls/hr Ibuprofen (Motrin -) 600 mg PO Q6H PRN PRN Reason: FEVER Levetiracetam (Keppra -) 500 mg PO BID [facility] Last Admin: 02/13/17 09:39 Dose: 500 mg Methadone HCl 40 mg/ Methadone (HCl 10 mg) 50 mg PO DAILY@0600 [facility] Last Admin: 02/13/17 06:57 Dose: 50 mg Methylprednisolone Sodium Succinate (Solu-Medrol -) 60 mg IVPUSH Q8H-IV [facility] Last Admin: 02/13/17 17:28 Dose: 60 mg Mupirocin (Bactroban Ointment (For Decolonization) -) 1 applic NS BID [facility] Stop: 02/18/17 09:59 Last Admin: 02/13/17 09:39 Dose: Not Given Nicotine (Nicoderm Patch -) 21 mg TD DAILY [facility] Last Admin: 02/13/17 09:40 Dose: 21 mg Nystatin (Nystatin Oral Suspension -) 500,000 units PO Q6HPO [facility] Last Admin: 02/13/17 17:26 Dose: 500,000 units Oxycodone HCl (Roxicodone -) 5 mg PO Q6H PRN PRN Reason: PAIN Last Admin: 02/13/17 17:26 Dose: 5 mg Quetiapine Fumarate 100 mg/ (Quetiapine Fumarate 200 mg) 300 mg PO [facility] Rivaroxaban (Xarelto -) 20 mg PO DAILY [facility] Last Admin: 02/13/17 09:44 Dose: 20 mg - Objective Vital Signs: Vital Signs Temperature 98.8 F 02/13/17 14:00 Pulse Rate 124 H 02/13/17 18:00 Respiratory Rate 20 02/13/17 18:00 Blood Pressure 146/104 02/13/17 18:00 O2 Sat by Pulse Oximetry (%) 95 02/13/17 14:11 Constitutional: Yes: No Distress HENT: Yes: Atraumatic Neck: Yes: Supple Cardiovascular: Yes: Pulse Irregular Respiratory: Yes: CTA Bilaterally Gastrointestinal: Yes: Normal Bowel Sounds Extremities: Yes: WNL Neurological: Yes: Alert, Oriented Labs: CBC, BMP 02/13/17 06:20 02/13/17 06:20 INR, PTT INR 1.29 (0.82-1.09) H 02/07/17 11:33 Problem List - Problems (1) Acute exacerbation of chronic obstructive pulmonary disease Assessment/Plan: on duo nebs' iv steroids Code(s): J44.1 - CHRONIC OBSTRUCTIVE PULMONARY DISEASE W (ACUTE) EXACERBATION (2) Hypothyroidism Assessment/Plan: on meds Code(s): E03.9 - HYPOTHYROIDISM, UNSPECIFIED (3) Methadone maintenance therapy patient Assessment/Plan: will continue Code(s): F11.20 - OPIOID DEPENDENCE, UNCOMPLICATED (4) Smoker Assessment/Plan: on nicotine patch Code(s): F17.200 - NICOTINE DEPENDENCE, UNSPECIFIED, UNCOMPLICATED (5) A-fib Assessment/Plan: on meds Code(s): I48.91 - UNSPECIFIED ATRIAL FIBRILLATION Qualifiers: Atrial fibrillation type: chronic Qualified Code(s): I48.2 - Chronic atrial fibrillation (6) Anxiety Assessment/Plan: on meds Code(s): F41.9 - ANXIETY DISORDER, UNSPECIFIED (7) Hypertension Assessment/Plan: on meds Code(s): I10 - ESSENTIAL (PRIMARY) HYPERTENSION Assessment/Plan cc time 30 min
[2017-02-13 18:44] LABS: MCH 29.3 pg (25.7-33.7); MCHC 31.6 g/dl (32.0-36.0); MEAN CELL VOLUME 92.6 fl (80-96); MEAN PLT VOLUME 9.2 fl (7.5-11.1); PLATELET COUNT 224 K/MM3 (134-434); RDW 17.4 % (11.6-15.6)
[2017-02-13 19:00] LABS: WHITE BLOOD COUNT 42.4 K/mm3 (4.0-10.0)
[2017-02-13 20:32] LABS: PLATELET ESTIMATE ADEQUATE
[2017-02-13] MEDS: QUETIAPINE FUMARATE PO SCH (21:12)
[2017-02-13] MEDS ORDERED: CHLORHEXIDINE GLUCONATE 4% CLEANSER FOR DECOLONIZATION TP SCH ×2 (22:00)
[2017-02-13] MEDS ORDERED: QUETIAPINE FUMARATE PO SCH (22:00)
[2017-02-13] MEDS: dilTIAZem HCL 50 MG/10 ML - 10 ML VIAL IVPUSH PRN (23:25)
[2017-02-14] MEDS: NYSTATIN 500,000 UNITS/5 ML SUSPENSION PO SCH ×4 (00:23→17:11)
[2017-02-14] MEDS: oxyCODONE HCL 5 MG TABLET PO PRN (01:02)
[2017-02-14] MEDS: methylPREDNISolone NA SUCC 125 MG/2 ML VIAL IVPUSH SCH ×2 (01:07→09:42)
[2017-02-14] MEDS: DILTIAZEM INJECTION 125 MG in DEXTROSE 5%-WATER - 100 ML IVPB SCH (02:41)
[2017-02-14] MEDS: dilTIAZem HCL 50 MG/10 ML - 10 ML VIAL IVPUSH PRN (03:47)
[2017-02-14] MEDS ORDERED: METHADONE HCL 10 MG TABLET ONE (06:00)
[2017-02-14] MEDS ORDERED: METHADONE HCL 40 MG DISPERSABLE TABLET ONE (06:01)
[2017-02-14] MEDS ORDERED: dilTIAZem HCL 30 MG TABLET (FP) ONE (06:01)
[2017-02-14] MEDS ORDERED: dilTIAZem HCL 60 MG TABLET (FP) ONE (06:01)
[2017-02-14] MEDS: GABAPENTIN 300 MG CAPSULE (FP) PO SCH ×3 (06:06→21:08)
[2017-02-14] MEDS: METHADONE 40 MG, METHADONE 10 MG PO SCH (06:06)
[2017-02-14] MEDS: DILTIAZEM 60 MG, DILTIAZEM 30 MG PO SCH (06:07)
[2017-02-14] MEDS: clonazePAM 0.5 MG TABLET PO SCH ×3 (06:07→21:08)
[2017-02-14 07:34] LABS: BASOPHIL 0.2 % (0-2.0); MCH 29.7 pg (25.7-33.7); MCHC 32.2 g/dl (32.0-36.0); MEAN CELL VOLUME 92.1 fl (80-96); MEAN PLT VOLUME 9.1 fl (7.5-11.1); NEUTROPHILS 96.5 % (42.8-82.8); PLATELET COUNT 149 K/MM3 (134-434); RDW 17.6 % (11.6-15.6); WHITE BLOOD COUNT 26.9 K/mm3 (4.0-10.0)
[2017-02-14 08:09] LABS: ANION GAP 7 (8-16); CALCIUM 7.7 mg/dL (8.5-10.1); CO2 32 mmol/L (21-32); CREATININE 1.2 mg/dL (0.55-1.02); GLUCOSE,RANDOM 287 mg/dL (74-106); MAGNESIUM 2.9 mg/dL (1.8-2.4); PHOSPHOROUS 3.1 mg/dL (2.5-4.9)
[2017-02-14] MEDS ORDERED: ALBUTEROL SO4 2.5/IPRATROPIUM 0.5 INH SOL 3 ML VIAL.NEB. NEB PRN (09:10)
[2017-02-14] MEDS ORDERED: clonazePAM 0.5 MG TABLET PO ONE ×2 (09:15→10:15)
[2017-02-14] MEDS: MUPIROCIN 2% TOPICAL OINTMENT FOR DECOLONIZATION NS SCH (09:40)
[2017-02-14] MEDS: DIGOXIN 0.125 MG TABLET (FP) PO SCH (09:41)
[2017-02-14] MEDS: levETIRAcetam 500 MG TABLET (FP) PO SCH ×2 (09:41→21:09)
[2017-02-14] MEDS: FUROSEMIDE 40 MG/4 ML INJECTABLE VIAL IVPUSH SCH (09:42)
[2017-02-14] MEDS: NICOTINE 21 MG/24 HOURS TOPICAL PATCH TD SCH (09:42)
[2017-02-14] MEDS: RIVAROXABAN 20 MG TABLET PO SCH (09:42)
--- NOTE | 2017-02-14 10:44 | PN ---
Progress Note (short form) - Note Progress Note: Chief Complaint: sob History of Present Illness: rvr overnight and this AM remains sob and coughing, less today per pt still pleuritic cp peter when coughs. sometimes feels palpitations. no dizziness leg swelling remains Current Medications Generic Name Dose Route Start Last Admin Trade Name Freq PRN Reason Stop Dose Admin Albuterol Sulfate 2 puff 02/13/17 02:33 Ventolin Hfa Inhaler - IH Q4H PRN SHORT OF BREATH/WHEEZING Albuterol/Ipratropium 1 amp 02/14/17 09:10 Duoneb - NEB Q4H PRN Chlorhexidine Gluconate 1 applic 02/13/17 22:00 02/13/17 22:23 Hibiclens For Decolonization - TP Not Given HS [facility] Clonazepam 1 mg 02/13/17 06:00 02/14/17 06:07 Klonopin - PO 1 mg TID [facility] Administration Digoxin 0.125 mg 02/13/17 10:00 02/14/17 09:41 Lanoxin - PO 0.125 mg DAILY [facility] Administration Diltiazem HCl 10 mg 02/14/17 03:18 02/14/17 03:47 Cardizem Injection - IVPUSH 10 mg Q4H PRN Administration HR SUSTAINING > 130 Diltiazem HCl 360 mg 02/14/17 10:00 02/14/17 09:41 Cardizem Cd - PO 360 mg DAILY [facility] Administration Furosemide 40 mg 02/13/17 10:00 02/14/17 09:42 Lasix Injection - IVPUSH 40 mg DAILY [facility] Administration Gabapentin 300 mg 02/13/17 06:00 02/14/17 06:06 Neurontin - PO 300 mg TID [facility] Administration Guaifenesin/Codeine Phosphate 5 ml 02/13/17 02:33 02/13/17 21:11 Robitussin Ac - PO 5 ml TID PRN Administration COUGH Ibuprofen 600 mg 02/13/17 02:33 Motrin - PO Q6H PRN FEVER Levetiracetam 500 mg 02/13/17 10:00 02/14/17 09:41 Keppra - PO 500 mg BID [facility] Administration Methadone HCl 40 mg/ Methadone 50 mg 02/13/17 06:00 02/14/17 06:06 HCl 10 mg PO 50 mg DAILY@0600 [facility] Administration Methylprednisolone Sodium Succinate 60 mg 02/13/17 10:00 02/14/17 09:42 Solu-Medrol - IVPUSH 60 mg Q8H-IV [facility] Administration Mupirocin 1 applic 02/13/17 10:00 02/14/17 09:40 Bactroban Ointment (For Decolonization) - NS 02/18/17 09:59 Not Given BID [facility] Nicotine 21 mg 02/13/17 10:00 02/14/17 09:42 Nicoderm Patch - TD 21 mg DAILY [facility] Administration Nystatin 500,000 units 02/13/17 12:00 02/14/17 06:07 Nystatin Oral Suspension - PO 500,000 units Q6HPO [facility] Administration Oxycodone HCl 5 mg 02/13/17 02:33 02/14/17 01:02 Roxicodone - PO 5 mg Q6H PRN Administration PAIN Quetiapine Fumarate 100 mg/ 300 mg 02/13/17 22:00 02/13/17 21:12 Quetiapine Fumarate 200 mg PO 300 mg HS [facility] Administration Rivaroxaban 20 mg 02/13/17 10:00 02/14/17 09:42 Xarelto - PO 20 mg DAILY [facility] Administration - Objective Vital Signs: Vital Signs Temp 98.9 F 02/14/17 06:00 Pulse 128 H 02/14/17 09:57 Resp 20 02/14/17 06:00 BP 144/88 02/14/17 06:00 Pulse Ox 96 02/14/17 09:57 Intake & Output 02/13/17 02/13/17 02/14/17 11:59 23:59 11:59 Intake Total 110 600 40 Output Total 450 1250 Balance -340 -650 40 Weight 202 lb 1 oz Intake: IV 10 40 Cardizem Injection - 125 10 mg In D5w - 100 ml @ 5 MG /HR 5 mls/hr IVPB TITR [facility] Rx#:[id number] TRIPPLE LUMEN 40 Oral 100 600 Output: Urine 450 1250 Jha 450 1250 Other: Voiding Method Indwelling Catheter Indwelling Catheter Bowel Movement No Weight Measurement Method Built in Bedscale anxious, conversational dyspnea jvd flat, neck supple + diffuse mild wheezes, nl effort tachy, irregular nl s1, s2 no mrg + bs soft nt nd trace edema. no cyanosis, clubbing. + dp/pt no jaundice, diaphoresis. aaox3 Labs: Laboratory Last Values WBC 26.9 K/mm3 (4.0-10.0) H D 02/14/17 06:14 RBC 4.52 M/mm3 (3.60-5.2) 02/14/17 06:14 Hgb 13.4 GM/dL (10.7-15.3) 02/14/17 06:14 Hct 41.6 % (32.4-45.2) 02/14/17 06:14 MCV 92.1 fl (80-96) 02/14/17 06:14 MCH 29.7 pg (25.7-33.7) 02/14/17 06:14 MCHC 32.2 g/dl (32.0-36.0) 02/14/17 06:14 RDW 17.6 % (11.6-15.6) H 02/14/17 06:14 Plt Count 149 K/MM3 (134-434) D 02/14/17 06:14 MPV 9.1 fl (7.5-11.1) 02/14/17 06:14 Total Counted 100 02/13/17 06:20 Neutrophils % 96.5 % (42.8-82.8) H 02/14/17 06:14 Neutrophils % (Manual) 94.0 % (42.8-82.8) H* 02/13/17 17:45 Band Neutrophils % 2.0 % 02/13/17 17:45 Lymphocytes % 0.6 % (8-40) L 02/14/17 06:14 Lymphocytes % (Manual) 1.0 % (8-40) L D 02/13/17 17:45 Monocytes % 2.7 % (3.8-10.2) L 02/14/17 06:14 Monocytes % (Manual) 3 % (3.8-10.2) L 02/13/17 17:45 Eosinophils % 0.0 % (0-4.5) 02/14/17 06:14 Eosinophils % (Manual) 0.0 % (0-4.5) 02/13/17 06:20 Basophils % 0.2 % (0-2.0) 02/14/17 06:14 Basophils % (Manual) 0.0 % (0-2.0) 02/13/17 06:20 Myelocytes % (Man) 0 % (0-2) 02/13/17 06:20 Metamyelocytes 0 % (0-2) 02/13/17 06:20 Hypochromia 0 02/13/17 06:20 Platelet Estimate Adequate 02/13/17 17:45 Platelet Comment Present 02/13/17 06:20 Polychromasia 0 02/13/17 06:20 Poikilocytosis 3+ 02/13/17 06:20 Anisocytosis 0 02/13/17 06:20 Microcytosis 0 02/13/17 06:20 Macrocytosis 0 02/13/17 06:20 PT with INR 14.60 SEC (9.98-11.88) H 02/07/17 11:33 INR 1.29 (0.82-1.09) H 02/07/17 11:33 PTT (Actin FS) 28.3 SECONDS (26.9-34.4) 02/07/17 11:33 Anticoagulation Therapy Y 02/13/17 02:30 Puncture Site Y 02/13/17 02:30 ABG pH 7.38 (7.35-7.45) 02/13/17 02:30 ABG pCO2 at Pt Temp 48.5 mmHg (35-45) H 02/13/17 02:30 ABG pO2 at Pt Temp 294.0 mmHg (80-100) H* 02/13/17 02:30 ABG HCO3 28.1 meq/L (22-26) H 02/13/17 02:30 ABG O2 Sat (Measured) 100.0 % (90-98.9) H* 02/13/17 02:30 ABG O2 Content 19.8 % vol (15-22) 02/13/17 02:30 ABG Base Excess 2.7 meq/l (-2-2) H 02/13/17 02:30 Samir Test Y 02/13/17 02:30 O2 Delivery Device Y 02/13/17 02:30 Oxygen Flow Rate Y 02/13/17 02:30 Vent Mode Y 02/13/17 02:30 Vent Rate Y 02/13/17 02:30 Mechanical Rate Y 02/13/17 02:30 PEEP 0.0 cmH2O 02/07/17 13:40 Pressure Support Vent Y 02/13/17 02:30 Sodium 134 mmol/L (136-145) L 02/14/17 06:14 Potassium 4.4 mmol/L (3.5-5.1) 02/14/17 06:14 Chloride 95 mmol/L (98-107) L 02/14/17 06:14 Carbon Dioxide 32 mmol/L (21-32) 02/14/17 06:14 Anion Gap 7 (8-16) L 02/14/17 06:14 BUN 36 mg/dL (7-18) H 02/14/17 06:14 Creatinine 1.2 mg/dL (0.55-1.02) H 02/14/17 06:14 Creat Clearance w eGFR 55.82 (>60) 02/08/17 00:00 Random Glucose 287 mg/dL (74-106) H D 02/14/17 06:14 Calcium 7.7 mg/dL (8.5-10.1) L 02/14/17 06:14 Phosphorus 3.1 mg/dL (2.5-4.9) 02/14/17 06:14 Magnesium 2.9 mg/dL (1.8-2.4) H D 02/14/17 06:14 Total Bilirubin 0.5 mg/dL (0.2-1.0) D 02/08/17 00:00 AST 17 U/L (15-37) 02/08/17 00:00 ALT 24 U/L (12-78) 02/08/17 00:00 Alkaline Phosphatase 63 U/L (45-117) 02/08/17 00:00 Creatine Kinase 154 IU/L (26-192) 02/13/17 02:30 Creatine Kinase Index 1.0 % (0.0-5.0) 02/13/17 02:30 CK-MB (CK-2) 1.682 ng/mL (0.5-3.6) 02/13/17 02:30 Troponin I 0.02 ng/ml (0.00-0.05) 02/13/17 02:30 B-Natriuretic Peptide 4214.40 pg/ml (5-125) H 02/07/17 11:33 Total Protein 7.6 g/dl (6.4-8.2) 02/08/17 00:00 Albumin 2.9 g/dl (3.4-5.0) L 02/08/17 00:00 TSH 0.07 uIU/ml (0.358-3.74) L D 02/13/17 06:20 Urine Color Ltyellow 02/08/17 16:30 Urine Appearance Clear 02/08/17 16:30 Urine pH 5.0 (5.0-8.0) 02/08/17 16:30 Ur Specific [place] 1.010 (1.001-1.035) 02/08/17 16:30 Urine Protein Negative (NEGATIVE) 02/08/17 16:30 Urine Glucose (UA) 1+ (NEGATIVE) H 02/08/17 16:30 Urine Ketones Negative (NEGATIVE) 02/08/17 16:30 Urine Blood 1+ (NEGATIVE) H 02/08/17 16:30 Urine Nitrite Negative (NEGATIVE) 02/08/17 16:30 Urine Bilirubin Negative (NEGATIVE) 02/08/17 16:30 Urine Urobilinogen Negative mg/dL (0.2-1.0) 02/08/17 16:30 Ur Leukocyte Esterase Negative (NEGATIVE) 02/08/17 16:30 Urine WBC (Auto) <1 /hpf (3-5) 02/08/17 16:30 Urine RBC (Auto) <1 /hpf (0-3) 02/08/17 16:30 Ur Epithelial Cells Rare /HPF (FEW) 02/08/17 16:30 Hyaline Casts 2 /lpf 02/08/17 16:30 Urine Mucus Rare 02/08/17 16:30 Digoxin 0.8952 ng/ml (0.8-2.0) 02/12/17 12:40 EKG: Other (tele: afib, rvr intermittently) Echo 11/2016: tds; low nl lvef, nl rv, alla, mild-mod mr/tr, Echo 07/2016: nl lv/rv. 1+ lae, 1+ mr/tr cxr: no sig change prior a/p: 66 yo smoker with h/o pafib on xarelto, htn, prior pe, copd, anxiety, lung cancer resected August 2012 at [facility] (no h/o of RT or chemo), polysubstance abuse on methadone maintenance , RA, Hep C, thyroid nodules, buergers disaese who p/w worsening sob and afib with rvr. atrial fibrillation -CHADS VASC 2--has been maintained on AC (xarelto at home), due to hypercoagulable hx with mult VTEs -see notes from prior admits--mult attempts made to coordinate pt's care with her PMD and have her f/u with us in office to minimize risks of tachy-CMP or falls/ICH on AC, but she has been non-compliant. (AC continued by PMD due to VTEs hx previously (including recently) and need for indefinite AC per prior evaluations. not a candidate for LA appendage closure/Watchman as she has non- afib indication for AC) -frequently rapid AF rates on prior admits during episodes of a.e. copd - 02/08 still with frequent breakthrough RVR to 120's with episodes of frequent agitation/frustration. Will plan on transitioning from diltiazem drip to po diltiazem this evening when she is due to receive her pain/sleep/anxiety medications. Would start short acting diltiazem and uptitrate. Con't dig. Hold off on propanolol while with copd exacerbation. Consider resuming once she has further improvement in sx's of sob. Dig level in am. - 02/09: Agitation improving. PO diltiazem uptitrated to 60 q6h last night. Will increase further to 90 mg q6h. Digoxin level low --> will give extra dose of .125 mcg IV x 1. Patient still with significant sx's from copd exacerbation --> too early to add back beta blockade. Will reevalute tomorrow. -02/10: HRs reasonably controlled on diltiazm 90 q6h, with brief rises to 130s in setting of dyspnea, cough pleuritic cp and steroids triggers. same meds, observe tele -02/11-02/12: HRs same, cont same meds. would not plan to resume BB given frequent admits here with bronchospasm, discussed with pulm. Ongoing treatment of underlying lung disease. Agitation improved. Repeat dig level today therapeutic. lyte repletion prn. -02/13: rvr overnight, started on dilt gtt with improved HR. cont for now and titrate down if HR stable on dig and po dilt. -02/14: RVR again. Will increase dilt to 360 qd and cont dilt. No bb 2/2 copd. Cont tele. - would not pursue AVN ablation and PM unless she shows persistent rapid HRs even when pulm status is stable, or admits for sx's clearly attributable to rapid HRs (including if HFpEF) a.e. copd - no signs acs. ce's neg x 2. Ekg without acute ischemic changes. - mgm't of copd per pulm/pmd - diuresis as mentioned below acute diastolic CHF - prior dry weight have ranged from 180-190. daily standing weights. I/O's. - some mild vol overload/sob likely due to rvr with possible contribution from volume retention 2/2 prednisone. - cont rate control as above - 02/09: standing weight today elevated above dry weight, will diurese with lasix 40 mg IV daily. daily bmp. - 02/12-: Will con't iv lasix for now, cr stable h/o DVT and PE: -on AC. HTN: - overall controlled h/o heroin abuse: -on methadone maintenance + tob - smoking cessation counselled here
--- NOTE | 2017-02-14 11:57 | PN ---
Progress Note (short form) - Note Progress Note: PULMONARY OOB TO CHAIR AGITATED AND POORLY COOPERATIVE HR 140'S IRREG 140/70 98.2 RR16 PALE SCATTERED EXP RHONCHI/DIMINISHED BREATH SOUNDS RLEFT BASE S1S2 IRREG RAPID BS+ OBESE MILD EDEMA LOWER EXT B/L WBC 26.9 HGB 13.4 BUN36/CR 1.2 7.38/48/294/100 50%FIO2 IMAGES/MEDS/MICRO REVIEWED Acute COPD Exacerbation Atrial Fibrillation with RVR Buerger Disease HTN Hypothyroidism Anxiety Smoker Methadone Maintenance - medrol will increase to 40q8 - inhaled bronchodilators - O2 to keep Spo2 >90% - rate control - continue anticoagulation - smoking cessation - echo when clinically stable Newton HENRY MD
[2017-02-14] MEDS: methylPREDNISolone NA SUCC 40 MG/1 ML VIAL IVPUSH SCH (17:23)
[2017-02-14] MEDS: ALBUTEROL SO4 2.5/IPRATROPIUM 0.5 INH SOL 3 ML VIAL.NEB. NEB SCH ×2 (18:00→23:27)
[2017-02-14] MEDS ORDERED: HALOPERIDOL LACTATE 5 MG/ML IM PRN (19:29)
--- NOTE | 2017-02-14 19:38 | CON.PSY ---
Psychiatry Consult Chief Complaint: Agitation History of Present Problem: Patient was seen sitting OOBto chair this pm, She is SOB, disheveled and in obvious psychological distress and suffering due to her medical condition. She could not talk in any sentence due to her SOB and gave short responses only. Patient is getting her right dose of methadone and her right dose of klonopin as per DES ISTOP. For agitation haldol is a good drug only prn as it does not compromise her breathing. The best route with least potential side effect is IV push. Will give po for now 2 mgs for agitation and if no response consider iv route. - Current Medications Current Medications: Active Medications Albuterol/Ipratropium (Duoneb -) 1 amp NEB Q4H [facility] Last Admin: 02/14/17 18:00 Dose: 1 amp Clonazepam (Klonopin -) 1 mg PO TID [facility] Last Admin: 02/14/17 13:32 Dose: 1 mg Digoxin (Lanoxin -) 0.125 mg PO DAILY [facility] Last Admin: 02/14/17 09:41 Dose: 0.125 mg Diltiazem HCl (Cardizem Injection -) 10 mg IVPUSH Q4H PRN PRN Reason: HR SUSTAINING > 130 Last Admin: 02/14/17 03:47 Dose: 10 mg Diltiazem HCl (Cardizem Cd -) 360 mg PO DAILY [facility] Last Admin: 02/14/17 09:41 Dose: 360 mg Furosemide (Lasix Injection -) 40 mg IVPUSH DAILY [facility] Last Admin: 02/14/17 09:42 Dose: 40 mg Gabapentin (Neurontin -) 300 mg PO TID [facility] Last Admin: 02/14/17 13:31 Dose: 300 mg Guaifenesin/Codeine Phosphate (Robitussin Ac -) 5 ml PO TID PRN PRN Reason: COUGH Last Admin: 02/13/17 21:11 Dose: 5 ml Ibuprofen (Motrin -) 600 mg PO Q6H PRN PRN Reason: FEVER Levetiracetam (Keppra -) 500 mg PO BID [facility] Last Admin: 02/14/17 09:41 Dose: 500 mg Methadone HCl 40 mg/ Methadone (HCl 10 mg) 50 mg PO DAILY@0600 [facility] Last Admin: 02/14/17 06:06 Dose: 50 mg Methylprednisolone Sodium Succinate (Solu-Medrol -) 40 mg IVPUSH Q8H-IV [facility] Last Admin: 02/14/17 17:23 Dose: 40 mg Nicotine (Nicoderm Patch -) 21 mg TD DAILY [facility] Last Admin: 02/14/17 09:42 Dose: 21 mg Nystatin (Nystatin Oral Suspension -) 500,000 units PO Q6HPO [facility] Last Admin: 02/14/17 17:11 Dose: 500,000 units Oxycodone HCl (Roxicodone -) 5 mg PO Q6H PRN PRN Reason: PAIN Last Admin: 02/14/17 01:02 Dose: 5 mg Quetiapine Fumarate 100 mg/ (Quetiapine Fumarate 200 mg) 300 mg PO HS [facility] Last Admin: 02/13/17 21:12 Dose: 300 mg Rivaroxaban (Xarelto -) 20 mg PO DAILY [facility] Last Admin: 02/14/17 09:42 Dose: 20 mg - Allergies Allergies: Allergies Allergy/AdvReac Type Severity Reaction Status Date / Time No Known Allergies Allergy Verified 02/07/17 11:33
[2017-02-14] MEDS ORDERED: PT OWN MED DRAWER 7, Y5N ONE (19:47)
[2017-02-14] MEDS: IBUPROFEN 600 MG TABLET (FP) PO PRN (20:21)
--- NOTE | 2017-02-14 20:32 | PN ---
Progress Note, Physician History of Present Illness: anxious - Current Medication List Current Medications: Active Medications Albuterol/Ipratropium (Duoneb -) 1 amp NEB Q4H [facility] Last Admin: 02/14/17 18:00 Dose: 1 amp Clonazepam (Klonopin -) 1 mg PO TID [facility] Last Admin: 02/14/17 13:32 Dose: 1 mg Digoxin (Lanoxin -) 0.125 mg PO DAILY [facility] Last Admin: 02/14/17 09:41 Dose: 0.125 mg Diltiazem HCl (Cardizem Injection -) 10 mg IVPUSH Q4H PRN PRN Reason: HR SUSTAINING > 130 Last Admin: 02/14/17 03:47 Dose: 10 mg Diltiazem HCl (Cardizem Cd -) 360 mg PO DAILY [facility] Last Admin: 02/14/17 09:41 Dose: 360 mg Furosemide (Lasix Injection -) 40 mg IVPUSH DAILY [facility] Last Admin: 02/14/17 09:42 Dose: 40 mg Gabapentin (Neurontin -) 300 mg PO TID [facility] Last Admin: 02/14/17 13:31 Dose: 300 mg Guaifenesin/Codeine Phosphate (Robitussin Ac -) 5 ml PO TID PRN PRN Reason: COUGH Last Admin: 02/13/17 21:11 Dose: 5 ml Haloperidol (Haldol Injection (Fast Acting) -) 2 mg IM BID PRN PRN Reason: AGITATION Ibuprofen (Motrin -) 600 mg PO Q6H PRN PRN Reason: FEVER Last Admin: 02/14/17 20:21 Dose: 600 mg Levetiracetam (Keppra -) 500 mg PO BID [facility] Last Admin: 02/14/17 09:41 Dose: 500 mg Methadone HCl 40 mg/ Methadone (HCl 10 mg) 50 mg PO DAILY@0600 [facility] Last Admin: 02/14/17 06:06 Dose: 50 mg Methylprednisolone Sodium Succinate (Solu-Medrol -) 40 mg IVPUSH Q8H-IV [facility] Last Admin: 02/14/17 17:23 Dose: 40 mg Nicotine (Nicoderm Patch -) 21 mg TD DAILY [facility] Last Admin: 02/14/17 09:42 Dose: 21 mg Nystatin (Nystatin Oral Suspension -) 500,000 units PO Q6HPO [facility] Last Admin: 02/14/17 17:11 Dose: 500,000 units Oxycodone HCl (Roxicodone -) 5 mg PO Q6H PRN PRN Reason: PAIN Last Admin: 02/14/17 01:02 Dose: 5 mg Quetiapine Fumarate 100 mg/ (Quetiapine Fumarate 200 mg) 300 mg PO HS [facility] Last Admin: 02/13/17 21:12 Dose: 300 mg Rivaroxaban (Xarelto -) 20 mg PO DAILY [facility] Last Admin: 02/14/17 09:42 Dose: 20 mg - Objective Vital Signs: Vital Signs Temperature 100.9 F H 02/14/17 19:45 Pulse Rate 133 H 02/14/17 19:45 Respiratory Rate 22 02/14/17 19:45 Blood Pressure 160/81 02/14/17 19:45 O2 Sat by Pulse Oximetry (%) 96 02/14/17 09:57 Constitutional: Yes: Anxious HENT: Yes: Atraumatic Neck: Yes: Supple Cardiovascular: Yes: Tachycardia Respiratory: Yes: Rhonchi, Wheezes Gastrointestinal: Yes: Normal Bowel Sounds Extremities: Yes: WNL Neurological: Yes: Alert, Oriented Labs: CBC, BMP 02/14/17 06:14 02/14/17 06:14 INR, PTT INR 1.29 (0.82-1.09) H 02/07/17 11:33 Problem List - Problems (1) Acute exacerbation of chronic obstructive pulmonary disease Assessment/Plan: on duo nebs' iv steroids Code(s): J44.1 - CHRONIC OBSTRUCTIVE PULMONARY DISEASE W (ACUTE) EXACERBATION (2) Hypothyroidism Assessment/Plan: on meds Code(s): E03.9 - HYPOTHYROIDISM, UNSPECIFIED (3) Methadone maintenance therapy patient Assessment/Plan: will continue Code(s): F11.20 - OPIOID DEPENDENCE, UNCOMPLICATED (4) Smoker Assessment/Plan: on nicotine patch Code(s): F17.200 - NICOTINE DEPENDENCE, UNSPECIFIED, UNCOMPLICATED (5) A-fib Assessment/Plan: on meds monitor cardiology consult Code(s): I48.91 - UNSPECIFIED ATRIAL FIBRILLATION Qualifiers: Atrial fibrillation type: chronic Qualified Code(s): I48.2 - Chronic atrial fibrillation (6) Anxiety Assessment/Plan: on klonopin psych consult Code(s): F41.9 - ANXIETY DISORDER, UNSPECIFIED (7) Hypertension Assessment/Plan: on meds stable Code(s): I10 - ESSENTIAL (PRIMARY) HYPERTENSION
[2017-02-14] MEDS: QUETIAPINE FUMARATE PO SCH (21:07)
[2017-02-15] MEDS: NYSTATIN 500,000 UNITS/5 ML SUSPENSION PO SCH ×4 (00:12→17:06)
[2017-02-15] MEDS: methylPREDNISolone NA SUCC 40 MG/1 ML VIAL IVPUSH SCH ×3 (01:54→17:06)
[2017-02-15] MEDS: ALBUTEROL SO4 2.5/IPRATROPIUM 0.5 INH SOL 3 ML VIAL.NEB. NEB SCH ×5 (04:55→20:15)
[2017-02-15] MEDS ORDERED: METHADONE HCL 10 MG TABLET ONE (05:55)
[2017-02-15] MEDS ORDERED: METHADONE HCL 40 MG DISPERSABLE TABLET ONE (05:57)
[2017-02-15] MEDS: clonazePAM 0.5 MG TABLET PO SCH ×3 (06:01→21:14)
[2017-02-15] MEDS: GABAPENTIN 300 MG CAPSULE (FP) PO SCH ×3 (06:02→21:14)
[2017-02-15] MEDS: METHADONE 40 MG, METHADONE 10 MG PO SCH (06:02)
[2017-02-15] MEDS: levETIRAcetam 500 MG TABLET (FP) PO SCH ×2 (09:18→21:14)
[2017-02-15] MEDS: DIGOXIN 0.125 MG TABLET (FP) PO SCH (09:18)
[2017-02-15] MEDS: RIVAROXABAN 20 MG TABLET PO SCH (09:19)
[2017-02-15] MEDS: FUROSEMIDE 40 MG/4 ML INJECTABLE VIAL IVPUSH SCH (09:19)
[2017-02-15] MEDS: NICOTINE 21 MG/24 HOURS TOPICAL PATCH TD SCH (09:19)
--- NOTE | 2017-02-15 11:08 | PN ---
Progress Note (short form) - Note Progress Note: Chief Complaint: sob History of Present Illness: remains sob and coughing still pleuritic cp peter when coughs. sometimes feels palpitations. no dizziness Current Medications Generic Name Dose Route Start Last Admin Trade Name Freq PRN Reason Stop Dose Admin Albuterol/Ipratropium 1 amp 02/14/17 12:00 02/15/17 09:43 Duoneb - NEB 1 amp Q4H [facility] Administration Clonazepam 1 mg 02/13/17 06:00 02/15/17 06:01 Klonopin - PO 1 mg TID [facility] Administration Digoxin 0.125 mg 02/13/17 10:00 02/15/17 09:18 Lanoxin - PO 0.125 mg DAILY [facility] Administration Diltiazem HCl 10 mg 02/14/17 03:18 02/14/17 03:47 Cardizem Injection - IVPUSH 10 mg Q4H PRN Administration HR SUSTAINING > 130 Diltiazem HCl 360 mg 02/14/17 10:00 02/15/17 09:18 Cardizem Cd - PO 360 mg DAILY [facility] Administration Furosemide 40 mg 02/13/17 10:00 02/15/17 09:19 Lasix Injection - IVPUSH 40 mg DAILY [facility] Administration Gabapentin 300 mg 02/13/17 06:00 02/15/17 06:02 Neurontin - PO 300 mg TID [facility] Administration Guaifenesin/Codeine Phosphate 5 ml 02/13/17 02:33 02/13/17 21:11 Robitussin Ac - PO 5 ml TID PRN Administration COUGH Haloperidol 2 mg 02/14/17 19:29 Haldol Injection (Fast Acting) - IM BID PRN AGITATION Ibuprofen 600 mg 02/13/17 02:33 02/14/17 20:21 Motrin - PO 600 mg Q6H PRN Administration FEVER Levetiracetam 500 mg 02/13/17 10:00 02/15/17 09:18 Keppra - PO 500 mg BID [facility] Administration Methadone HCl 40 mg/ Methadone 50 mg 02/13/17 06:00 02/15/17 06:02 HCl 10 mg PO 50 mg DAILY@0600 [facility] Administration Methylprednisolone Sodium Succinate 40 mg 02/14/17 11:56 02/15/17 09:19 Solu-Medrol - IVPUSH 40 mg Q8H-IV [facility] Administration Nicotine 21 mg 02/13/17 10:00 02/15/17 09:19 Nicoderm Patch - TD 21 mg DAILY [facility] Administration Nystatin 500,000 units 02/13/17 12:00 02/15/17 06:16 Nystatin Oral Suspension - PO 500,000 units Q6HPO [facility] Administration Oxycodone HCl 5 mg 02/13/17 02:33 02/14/17 01:02 Roxicodone - PO 5 mg Q6H PRN Administration PAIN Quetiapine Fumarate 100 mg/ 300 mg 02/13/17 22:00 02/14/17 21:07 Quetiapine Fumarate 200 mg PO 300 mg HS [facility] Administration Rivaroxaban 20 mg 02/13/17 10:00 02/15/17 09:19 Xarelto - PO 20 mg DAILY [facility] Administration - Objective Vital Signs: Vital Signs Period Temp Pulse Resp BP Sys/Smyth Pulse Ox Last 24 Hr 97.2 F-100.9 F 74-133 20-26 117-161/56-81 91-99 anxious, conversational dyspnea jvd flat, neck supple + diffuse mild wheezes, nl effort tachy, irregular nl s1, s2 no mrg + bs soft nt nd trace edema. no cyanosis, clubbing. + dp/pt no jaundice, diaphoresis. aaox3 Labs: Laboratory Last Values WBC 26.9 K/mm3 (4.0-10.0) H D 02/14/17 06:14 RBC 4.52 M/mm3 (3.60-5.2) 02/14/17 06:14 Hgb 13.4 GM/dL (10.7-15.3) 02/14/17 06:14 Hct 41.6 % (32.4-45.2) 02/14/17 06:14 MCV 92.1 fl (80-96) 02/14/17 06:14 MCH 29.7 pg (25.7-33.7) 02/14/17 06:14 MCHC 32.2 g/dl (32.0-36.0) 02/14/17 06:14 RDW 17.6 % (11.6-15.6) H 02/14/17 06:14 Plt Count 149 K/MM3 (134-434) D 02/14/17 06:14 MPV 9.1 fl (7.5-11.1) 02/14/17 06:14 Total Counted 100 02/13/17 06:20 Neutrophils % 96.5 % (42.8-82.8) H 02/14/17 06:14 Neutrophils % (Manual) 94.0 % (42.8-82.8) H* 02/13/17 17:45 Band Neutrophils % 2.0 % 02/13/17 17:45 Lymphocytes % 0.6 % (8-40) L 02/14/17 06:14 Lymphocytes % (Manual) 1.0 % (8-40) L D 02/13/17 17:45 Monocytes % 2.7 % (3.8-10.2) L 02/14/17 06:14 Monocytes % (Manual) 3 % (3.8-10.2) L 02/13/17 17:45 Eosinophils % 0.0 % (0-4.5) 02/14/17 06:14 Eosinophils % (Manual) 0.0 % (0-4.5) 02/13/17 06:20 Basophils % 0.2 % (0-2.0) 02/14/17 06:14 Basophils % (Manual) 0.0 % (0-2.0) 02/13/17 06:20 Myelocytes % (Man) 0 % (0-2) 02/13/17 06:20 Metamyelocytes 0 % (0-2) 02/13/17 06:20 Hypochromia 0 02/13/17 06:20 Platelet Estimate Adequate 02/13/17 17:45 Platelet Comment Present 02/13/17 06:20 Polychromasia 0 02/13/17 06:20 Poikilocytosis 3+ 02/13/17 06:20 Anisocytosis 0 02/13/17 06:20 Microcytosis 0 02/13/17 06:20 Macrocytosis 0 02/13/17 06:20 PT with INR 14.60 SEC (9.98-11.88) H 02/07/17 11:33 INR 1.29 (0.82-1.09) H 02/07/17 11:33 PTT (Actin FS) 28.3 SECONDS (26.9-34.4) 02/07/17 11:33 Anticoagulation Therapy Y 02/13/17 02:30 Puncture Site Y 02/13/17 02:30 ABG pH 7.38 (7.35-7.45) 02/13/17 02:30 ABG pCO2 at Pt Temp 48.5 mmHg (35-45) H 02/13/17 02:30 ABG pO2 at Pt Temp 294.0 mmHg (80-100) H* 02/13/17 02:30 ABG HCO3 28.1 meq/L (22-26) H 02/13/17 02:30 ABG O2 Sat (Measured) 100.0 % (90-98.9) H* 02/13/17 02:30 ABG O2 Content 19.8 % vol (15-22) 02/13/17 02:30 ABG Base Excess 2.7 meq/l (-2-2) H 02/13/17 02:30 Samir Test Y 02/13/17 02:30 O2 Delivery Device Y 02/13/17 02:30 Oxygen Flow Rate Y 02/13/17 02:30 Vent Mode Y 02/13/17 02:30 Vent Rate Y 02/13/17 02:30 Mechanical Rate Y 02/13/17 02:30 PEEP 0.0 cmH2O 02/07/17 13:40 Pressure Support Vent Y 02/13/17 02:30 Sodium 134 mmol/L (136-145) L 02/14/17 06:14 Potassium 4.4 mmol/L (3.5-5.1) 02/14/17 06:14 Chloride 95 mmol/L (98-107) L 02/14/17 06:14 Carbon Dioxide 32 mmol/L (21-32) 02/14/17 06:14 Anion Gap 7 (8-16) L 02/14/17 06:14 BUN 36 mg/dL (7-18) H 02/14/17 06:14 Creatinine 1.2 mg/dL (0.55-1.02) H 02/14/17 06:14 Creat Clearance w eGFR 55.82 (>60) 02/08/17 00:00 Random Glucose 287 mg/dL (74-106) H D 02/14/17 06:14 Calcium 7.7 mg/dL (8.5-10.1) L 02/14/17 06:14 Phosphorus 3.1 mg/dL (2.5-4.9) 02/14/17 06:14 Magnesium 2.9 mg/dL (1.8-2.4) H D 02/14/17 06:14 Total Bilirubin 0.5 mg/dL (0.2-1.0) D 02/08/17 00:00 AST 17 U/L (15-37) 02/08/17 00:00 ALT 24 U/L (12-78) 02/08/17 00:00 Alkaline Phosphatase 63 U/L (45-117) 02/08/17 00:00 Creatine Kinase 154 IU/L (26-192) 02/13/17 02:30 Creatine Kinase Index 1.0 % (0.0-5.0) 02/13/17 02:30 CK-MB (CK-2) 1.682 ng/mL (0.5-3.6) 02/13/17 02:30 Troponin I 0.02 ng/ml (0.00-0.05) 02/13/17 02:30 B-Natriuretic Peptide 4214.40 pg/ml (5-125) H 02/07/17 11:33 Total Protein 7.6 g/dl (6.4-8.2) 02/08/17 00:00 Albumin 2.9 g/dl (3.4-5.0) L 02/08/17 00:00 TSH 0.07 uIU/ml (0.358-3.74) L D 02/13/17 06:20 Urine Color Ltyellow 02/08/17 16:30 Urine Appearance Clear 02/08/17 16:30 Urine pH 5.0 (5.0-8.0) 02/08/17 16:30 Ur Specific [place]ley 1.010 (1.001-1.035) 02/08/17 16:30 Urine Protein Negative (NEGATIVE) 02/08/17 16:30 Urine Glucose (UA) 1+ (NEGATIVE) H 02/08/17 16:30 Urine Ketones Negative (NEGATIVE) 02/08/17 16:30 Urine Blood 1+ (NEGATIVE) H 02/08/17 16:30 Urine Nitrite Negative (NEGATIVE) 02/08/17 16:30 Urine Bilirubin Negative (NEGATIVE) 02/08/17 16:30 Urine Urobilinogen Negative mg/dL (0.2-1.0) 02/08/17 16:30 Ur Leukocyte Esterase Negative (NEGATIVE) 02/08/17 16:30 Urine WBC (Auto) <1 /hpf (3-5) 02/08/17 16:30 Urine RBC (Auto) <1 /hpf (0-3) 02/08/17 16:30 Ur Epithelial Cells Rare /HPF (FEW) 02/08/17 16:30 Hyaline Casts 2 /lpf 02/08/17 16:30 Urine Mucus Rare 02/08/17 16:30 Digoxin 0.8952 ng/ml (0.8-2.0) 02/12/17 12:40 EKG: Other (tele: afib, rvr intermittently) Echo 11/2016: tds; low nl lvef, nl rv, alla, mild-mod mr/tr, Echo 07/2016: nl lv/rv. 1+ lae, 1+ mr/tr cxr: no sig change prior a/p: 66 yo smoker with h/o pafib on xarelto, htn, prior pe, copd, anxiety, lung cancer resected [address] [facility] (no h/o of RT or chemo), polysubstance abuse on methadone maintenance , RA, Hep C, thyroid nodules, buergers disaese who p/w worsening sob and afib with rvr. atrial fibrillation -CHADS VASC 2--has been maintained on AC (xarelto at home), due to hypercoagulable hx with mult VTEs -see notes from prior admits--mult attempts made to coordinate pt's care with her PMD and have her f/u with us in office to minimize risks of tachy-CMP or falls/ICH on AC, but she has been non-compliant. (AC continued by PMD due to VTEs hx previously (including recently) and need for indefinite AC per prior evaluations. not a candidate for LA appendage closure/Watchman as she has non- afib indication for AC) -frequently rapid AF rates on prior admits during episodes of a.e. copd - 02/08 still with frequent breakthrough RVR to 120's with episodes of frequent agitation/frustration. Will plan on transitioning from diltiazem drip to po diltiazem this evening when she is due to receive her pain/sleep/anxiety medications. Would start short acting diltiazem and uptitrate. Con't dig. Hold off on propanolol while with copd exacerbation. Consider resuming once she has further improvement in sx's of sob. Dig level in am. - 02/09: Agitation improving. PO diltiazem uptitrated to 60 q6h last night. Will increase further to 90 mg q6h. Digoxin level low --> will give extra dose of .125 mcg IV x 1. Patient still with significant sx's from copd exacerbation --> too early to add back beta blockade. Will reevalute tomorrow. -02/10: HRs reasonably controlled on diltiazm 90 q6h, with brief rises to 130s in setting of dyspnea, cough pleuritic cp and steroids triggers. same meds, observe tele -02/11-02/12: HRs same, cont same meds. would not plan to resume BB given frequent admits here with bronchospasm, discussed with pulm. Ongoing treatment of underlying lung disease. Agitation improved. Repeat dig level today therapeutic. lyte repletion prn. -02/13: rvr overnight, started on dilt gtt with improved HR. cont for now and titrate down if HR stable on dig and po dilt. -02/14: RVR again. Will increase dilt to 360 qd and cont dilt. -02/15: rate improved, cont dilt and dig. No bb 2/2 copd. Cont tele. - would not pursue AVN ablation and PM unless she shows persistent rapid HRs even when pulm status is stable, or admits for sx's clearly attributable to rapid HRs (including if HFpEF) a.e. copd - no signs acs. ce's neg x 2. Ekg without acute ischemic changes. - mgm't of copd per pulm/pmd - diuresis as mentioned below acute diastolic CHF - prior dry weight have ranged from 180-190. daily standing weights. I/O's. - some mild vol overload/sob likely due to rvr with possible contribution from volume retention 2/2 prednisone. - cont rate control as above - 02/09: standing weight today elevated above dry weight, will diurese with lasix 40 mg IV daily. daily bmp. - 02/12-15: Will con't iv lasix for now, cr stable h/o DVT and PE: -on AC. HTN: - overall controlled h/o heroin abuse: -on methadone maintenance + tob - smoking cessation counselled here
--- NOTE | 2017-02-15 12:06 | PN ---
Progress Note (short form) - Note Progress Note: PULMONARY OOB TO CHAIR AGITATED AND POORLY COOPERATIVE PULMONARY HR 90 IRREG 117/56 98.2 RR16 TMAX 99 PALE SCATTERED EXP RHONCHI/DIMINISHED BREATH SOUNDS RLEFT BASE S1S2 IRREG RAPID BS+ OBESE MILD EDEMA LOWER EXT B/L NO NEW LABS TODAY IMAGES/MEDS/MICRO REVIEWED Acute COPD Exacerbation Atrial Fibrillation with RVR Buerger Disease HTN Hypothyroidism Anxiety Smoker Methadone Maintenance - medrol to 40q8 - inhaled bronchodilators - O2 to keep Spo2 >90% - rate control - continue anticoagulation - smoking cessation - echo when clinically stable - check cbc/cmp today Newton HENRY MD
[2017-02-15] MEDS: IBUPROFEN 600 MG TABLET (FP) PO PRN ×2 (12:49→20:11)
--- NOTE | 2017-02-15 16:40 | PN ---
Progress Note, Physician History of Present Illness: anxious - Current Medication List Current Medications: Active Medications Albuterol/Ipratropium (Duoneb -) 1 amp NEB Q4H [facility] Last Admin: 02/15/17 11:43 Dose: Not Given Clonazepam (Klonopin -) 1 mg PO TID [facility] Last Admin: 02/15/17 13:02 Dose: 1 mg Digoxin (Lanoxin -) 0.125 mg PO DAILY [facility] Last Admin: 02/15/17 09:18 Dose: 0.125 mg Diltiazem HCl (Cardizem Injection -) 10 mg IVPUSH Q4H PRN PRN Reason: HR SUSTAINING > 130 Last Admin: 02/14/17 03:47 Dose: 10 mg Diltiazem HCl (Cardizem Cd -) 360 mg PO DAILY [facility] Last Admin: 02/15/17 09:18 Dose: 360 mg Furosemide (Lasix Injection -) 40 mg IVPUSH DAILY [facility] Last Admin: 02/15/17 09:19 Dose: 40 mg Gabapentin (Neurontin -) 300 mg PO TID [facility] Last Admin: 02/15/17 13:02 Dose: 300 mg Guaifenesin/Codeine Phosphate (Robitussin Ac -) 5 ml PO TID PRN PRN Reason: COUGH Last Admin: 02/13/17 21:11 Dose: 5 ml Haloperidol (Haldol Injection (Fast Acting) -) 2 mg IM BID PRN PRN Reason: AGITATION Ibuprofen (Motrin -) 600 mg PO Q6H PRN PRN Reason: FEVER Last Admin: 02/15/17 12:49 Dose: 600 mg Levetiracetam (Keppra -) 500 mg PO BID [facility] Last Admin: 02/15/17 09:18 Dose: 500 mg Methadone HCl 40 mg/ Methadone (HCl 10 mg) 50 mg PO DAILY@0600 [facility] Last Admin: 02/15/17 06:02 Dose: 50 mg Methylprednisolone Sodium Succinate (Solu-Medrol -) 40 mg IVPUSH Q8H-IV [facility] Last Admin: 02/15/17 09:19 Dose: 40 mg Nicotine (Nicoderm Patch -) 21 mg TD DAILY [facility] Last Admin: 02/15/17 09:19 Dose: 21 mg Nystatin (Nystatin Oral Suspension -) 500,000 units PO Q6HPO [facility] Last Admin: 02/15/17 12:55 Dose: 500,000 units Oxycodone HCl (Roxicodone -) 5 mg PO Q6H PRN PRN Reason: PAIN Last Admin: 02/14/17 01:02 Dose: 5 mg Quetiapine Fumarate 100 mg/ (Quetiapine Fumarate 200 mg) 300 mg PO HS [facility] Last Admin: 02/14/17 21:07 Dose: 300 mg Rivaroxaban (Xarelto -) 20 mg PO DAILY [facility] Last Admin: 02/15/17 09:19 Dose: 20 mg - Objective Vital Signs: Vital Signs Temperature 100.3 F H 02/15/17 14:00 Pulse Rate 71 02/15/17 14:00 Respiratory Rate 20 02/15/17 14:00 Blood Pressure 110/57 02/15/17 14:00 O2 Sat by Pulse Oximetry (%) 95 02/15/17 09:42 Constitutional: Yes: No Distress HENT: Yes: Atraumatic Neck: Yes: Supple Cardiovascular: Yes: Tachycardia, Pulse Irregular Respiratory: Yes: Rhonchi, Wheezes Gastrointestinal: Yes: Normal Bowel Sounds Neurological: Yes: Alert, Oriented Labs: CBC, BMP 02/14/17 06:14 02/14/17 06:14 INR, PTT INR 1.29 (0.82-1.09) H 02/07/17 11:33 Problem List - Problems (1) Acute exacerbation of chronic obstructive pulmonary disease Assessment/Plan: on duo nebs' iv steroids Code(s): J44.1 - CHRONIC OBSTRUCTIVE PULMONARY DISEASE W (ACUTE) EXACERBATION (2) Hypothyroidism Assessment/Plan: on meds Code(s): E03.9 - HYPOTHYROIDISM, UNSPECIFIED (3) Methadone maintenance therapy patient Assessment/Plan: will continue Code(s): F11.20 - OPIOID DEPENDENCE, UNCOMPLICATED (4) Smoker Assessment/Plan: on nicotine patch Code(s): F17.200 - NICOTINE DEPENDENCE, UNSPECIFIED, UNCOMPLICATED (5) A-fib Code(s): I48.91 - UNSPECIFIED ATRIAL FIBRILLATION Qualifiers: Atrial fibrillation type: chronic Qualified Code(s): I48.2 - Chronic atrial fibrillation (6) Anxiety Code(s): F41.9 - ANXIETY DISORDER, UNSPECIFIED (7) Hypertension Code(s): I10 - ESSENTIAL (PRIMARY) HYPERTENSION
[2017-02-15] MEDS ORDERED: PT OWN MED DRAWER 7, Y5N ONE (19:57)
[2017-02-15] MEDS: QUETIAPINE FUMARATE PO SCH (21:14)
[2017-02-16] MEDS: ALBUTEROL SO4 2.5/IPRATROPIUM 0.5 INH SOL 3 ML VIAL.NEB. NEB SCH ×6 (00:13→21:35)
[2017-02-16] MEDS: ACETAMINOPHEN 325 MG TABLET (FP) PO PRN ×2 (00:28→11:15)
[2017-02-16] MEDS: NYSTATIN 500,000 UNITS/5 ML SUSPENSION PO SCH ×4 (00:49→17:19)
[2017-02-16] MEDS: methylPREDNISolone NA SUCC 40 MG/1 ML VIAL IVPUSH SCH ×3 (02:40→17:19)
[2017-02-16] MEDS ORDERED: METHADONE HCL 10 MG TABLET ONE (05:27)
[2017-02-16] MEDS ORDERED: METHADONE HCL 40 MG DISPERSABLE TABLET ONE (05:27)
[2017-02-16] MEDS: METHADONE 40 MG, METHADONE 10 MG PO SCH (05:39)
[2017-02-16] MEDS: clonazePAM 0.5 MG TABLET PO SCH ×2 (05:39→15:21)
[2017-02-16] MEDS: GABAPENTIN 300 MG CAPSULE (FP) PO SCH ×2 (05:39→15:21)
[2017-02-16 07:06] LABS: MCH 29.2 pg (25.7-33.7); MCHC 31.5 g/dl (32.0-36.0); MEAN CELL VOLUME 92.7 fl (80-96); MEAN PLT VOLUME 10.7 fl (7.5-11.1); PLATELET COUNT 82 K/MM3 (134-434); RDW 17.7 % (11.6-15.6); WHITE BLOOD COUNT 15.6 K/mm3 (4.0-10.0)
[2017-02-16 07:34] LABS: ALK PHOS 69 U/L (45-117); ANION GAP 10 (8-16); BILIRUBIN,TOTAL 0.8 mg/dL (0.2-1.0); CALCIUM 7.7 mg/dL (8.5-10.1); CO2 35 mmol/L (21-32); CREATININE 1.2 mg/dL (0.55-1.02); SGOT/AST 19 U/L (15-37); SGPT/ALT 16 U/L (12-78); TOT PROT 6.1 g/dl (6.4-8.2)
[2017-02-16 08:42] LABS: GLUCOSE,RANDOM 397 mg/dL (74-106)
[2017-02-16 10:05] LABS: PLATELET ESTIMATE DECREASED; TOTAL CELLS COUNTED 100
--- NOTE | 2017-02-16 11:02 | PN ---
Progress Note (short form) - Note Progress Note: PULMONARY OOB TO CHAIR AGITATED AND POORLY COOPERATIVE PULMONARY HR 100 IRREG 111/74 RR16 TMAX 98.5 PALE SCATTERED EXP RHONCHI/DIMINISHED BREATH SOUNDS BIBASILAR S1S2 IRREG RAPID BS+ OBESE MILD EDEMA LOWER EXT B/L WBC 15.6 HGB 12.6 PLT 82K BUN/CR 38/1.2 GLUC 397 IMAGES/MEDS/MICRO REVIEWED Acute COPD Exacerbation Atrial Fibrillation with RVR Buerger Disease HTN Hypothyroidism Anxiety Smoker Methadone Maintenance - medrol to 40q8 - inhaled bronchodilators - O2 to keep Spo2 >90% - rate control - continue anticoagulation - smoking cessation - echo when clinically stable - follow cbc/cmp Newton HENRY MD
[2017-02-16] MEDS: levETIRAcetam 500 MG TABLET (FP) PO SCH (11:17)
[2017-02-16] MEDS: FUROSEMIDE 40 MG/4 ML INJECTABLE VIAL IVPUSH SCH (11:18)
[2017-02-16] MEDS: DIGOXIN 0.125 MG TABLET (FP) PO SCH (11:18)
[2017-02-16] MEDS: NICOTINE 21 MG/24 HOURS TOPICAL PATCH TD SCH (11:18)
[2017-02-16] MEDS: RIVAROXABAN 20 MG TABLET PO SCH (11:18)
--- NOTE | 2017-02-16 11:22 | PN ---
Progress Note, Physician History of Present Illness: No complaints Breathing improved Tele: 90-100s - Current Medication List Current Medications: Active Medications Acetaminophen (Tylenol -) 650 mg PO Q6H PRN PRN Reason: FEVER OR PAIN Last Admin: 02/16/17 00:28 Dose: 650 mg Albuterol/Ipratropium (Duoneb -) 1 amp NEB Q4H [facility] Last Admin: 02/16/17 11:15 Dose: 1 amp Clonazepam (Klonopin -) 1 mg PO TID [facility] Last Admin: 02/16/17 05:39 Dose: 1 mg Digoxin (Lanoxin -) 0.125 mg PO DAILY [facility] Last Admin: 02/15/17 09:18 Dose: 0.125 mg Diltiazem HCl (Cardizem Injection -) 10 mg IVPUSH Q4H PRN PRN Reason: HR SUSTAINING > 130 Last Admin: 02/14/17 03:47 Dose: 10 mg Diltiazem HCl (Cardizem Cd -) 360 mg PO DAILY [facility] Last Admin: 02/15/17 09:18 Dose: 360 mg Furosemide (Lasix Injection -) 40 mg IVPUSH DAILY [facility] Last Admin: 02/15/17 09:19 Dose: 40 mg Gabapentin (Neurontin -) 300 mg PO TID [facility] Last Admin: 02/16/17 05:39 Dose: 300 mg Haloperidol (Haldol Injection (Fast Acting) -) 2 mg IM BID PRN PRN Reason: AGITATION Ibuprofen (Motrin -) 600 mg PO Q6H PRN PRN Reason: FEVER Last Admin: 02/15/17 20:11 Dose: 600 mg Levetiracetam (Keppra -) 500 mg PO BID [facility] Last Admin: 02/15/17 21:14 Dose: 500 mg Methadone HCl 40 mg/ Methadone (HCl 10 mg) 50 mg PO DAILY@0600 [facility] Last Admin: 02/16/17 05:39 Dose: 50 mg Methylprednisolone Sodium Succinate (Solu-Medrol -) 40 mg IVPUSH Q8H-IV [facility] Last Admin: 02/16/17 02:40 Dose: 40 mg Nicotine (Nicoderm Patch -) 21 mg TD DAILY [facility] Last Admin: 02/15/17 09:19 Dose: 21 mg Nystatin (Nystatin Oral Suspension -) 500,000 units PO Q6HPO [facility] Last Admin: 02/16/17 05:39 Dose: 500,000 units Quetiapine Fumarate 100 mg/ (Quetiapine Fumarate 200 mg) 300 mg PO HS [facility] Last Admin: 02/15/17 21:14 Dose: 300 mg Rivaroxaban (Xarelto -) 20 mg PO DAILY [facility] Last Admin: 02/15/17 09:19 Dose: 20 mg - Objective Vital Signs: Vital Signs Temperature 98.5 F 02/16/17 05:48 Pulse Rate 76 02/16/17 10:35 Respiratory Rate 20 02/16/17 05:48 Blood Pressure 111/74 02/16/17 05:48 O2 Sat by Pulse Oximetry (%) 85 L 02/16/17 11:11 Constitutional: Yes: No Distress (On FM) Eyes: Yes: WNL HENT: Yes: WNL Cardiovascular: Yes: Pulse Irregular Respiratory: Yes: CTA Bilaterally Gastrointestinal: Yes: WNL Musculoskeletal: Yes: WNL Extremities: Yes: WNL Edema: Yes Labs: CBC, BMP 02/16/17 05:30 02/16/17 05:30 INR, PTT INR 1.29 (0.82-1.09) H 02/07/17 11:33 Assessment/Plan a/p: 66 yo smoker with h/o pafib on xarelto, htn, prior pe, copd, anxiety, lung cancer resected August 2012 at [facility] (no h/o of RT or chemo), polysubstance abuse on methadone maintenance , RA, Hep C, thyroid nodules, buergers disaese who p/w worsening sob and afib with rvr. atrial fibrillation -CHADS VASC 2--has been maintained on AC (xarelto at home), due to hypercoagulable hx with mult VTEs -02/16: rate improved, (tele overnight 90-100/min) cont dilt and dig. No bb 2/ 2 copd. Cont tele. a.e. copd - no signs acs. ce's neg x 2. Ekg without acute ischemic changes. - mgm't of copd per pulm/pmd - diuresis as mentioned below acute diastolic CHF - prior dry weight have ranged from 180-190. daily standing weights. I/O's. - some mild vol overload/sob likely due to rvr with possible contribution from volume retention 2/2 prednisone. - cont rate control as above - 02/09: standing weight today elevated above dry weight, will diurese with lasix 40 mg IV daily. daily bmp. - 02/16: Will con't iv lasix for now, cr stable h/o DVT and PE: -on AC. HTN: - overall controlled
[2017-02-16] MEDS ORDERED: AMPICILLIN NA/SULBACTAM NA 1.5 GM in SODIUM CHLORIDE 100 ML IVPB SCH (17:45)
--- NOTE | 2017-02-16 17:46 | PN ---
Progress Note, Physician History of Present Illness: anxious - Current Medication List Current Medications: Active Medications Acetaminophen (Tylenol -) 650 mg PO Q6H PRN PRN Reason: FEVER OR PAIN Last Admin: 02/16/17 11:15 Dose: 650 mg Albuterol/Ipratropium (Duoneb -) 1 amp NEB Q4H [facility] Last Admin: 02/16/17 11:15 Dose: 1 amp Clonazepam (Klonopin -) 1 mg PO TID [facility] Last Admin: 02/16/17 15:21 Dose: 1 mg Digoxin (Lanoxin -) 0.125 mg PO DAILY [facility] Last Admin: 02/16/17 11:18 Dose: 0.125 mg Diltiazem HCl (Cardizem Injection -) 10 mg IVPUSH Q4H PRN PRN Reason: HR SUSTAINING > 130 Last Admin: 02/14/17 03:47 Dose: 10 mg Diltiazem HCl (Cardizem Cd -) 360 mg PO DAILY [facility] Last Admin: 02/16/17 11:15 Dose: 360 mg Furosemide (Lasix Injection -) 40 mg IVPUSH DAILY [facility] Last Admin: 02/16/17 11:18 Dose: 40 mg Gabapentin (Neurontin -) 300 mg PO TID [facility] Last Admin: 02/16/17 15:21 Dose: 300 mg Haloperidol (Haldol Injection (Fast Acting) -) 2 mg IM BID PRN PRN Reason: AGITATION Ampicillin Sodium/Sulbactam (Sodium 1.5 gm/ Sodium Chloride) 100 mls @ 200 mls/ hr IVPB Q6H-IV [facility] Ibuprofen (Motrin -) 600 mg PO Q6H PRN PRN Reason: FEVER Last Admin: 02/15/17 20:11 Dose: 600 mg Levetiracetam (Keppra -) 500 mg PO BID [facility] Last Admin: 02/16/17 11:17 Dose: 500 mg Methadone HCl 40 mg/ Methadone (HCl 10 mg) 50 mg PO DAILY@0600 [facility] Last Admin: 02/16/17 05:39 Dose: 50 mg Methylprednisolone Sodium Succinate (Solu-Medrol -) 40 mg IVPUSH Q8H-IV [facility] Last Admin: 02/16/17 17:19 Dose: 40 mg Nicotine (Nicoderm Patch -) 21 mg TD DAILY [facility] Last Admin: 02/16/17 11:18 Dose: 21 mg Nystatin (Nystatin Oral Suspension -) 500,000 units PO Q6HPO [facility] Last Admin: 02/16/17 17:19 Dose: 500,000 units Quetiapine Fumarate 100 mg/ (Quetiapine Fumarate 200 mg) 300 mg PO HS [facility] Last Admin: 02/15/17 21:14 Dose: 300 mg Rivaroxaban (Xarelto -) 20 mg PO DAILY [facility] Last Admin: 02/16/17 11:18 Dose: 20 mg - Objective Vital Signs: Vital Signs Temperature 102.9 F H 02/16/17 14:00 Pulse Rate 110 H 02/16/17 14:00 Respiratory Rate 20 02/16/17 14:00 Blood Pressure 122/66 02/16/17 14:00 O2 Sat by Pulse Oximetry (%) 91 L 02/16/17 11:11 HENT: Yes: Atraumatic Neck: Yes: Supple Cardiovascular: Yes: Tachycardia Respiratory: Yes: Rhonchi, Wheezes Gastrointestinal: Yes: Normal Bowel Sounds Extremities: Yes: WNL Edema: LLE: 1+, RLE: 1+ Peripheral Pulses WNL: Yes Neurological: Yes: Alert, Oriented Labs: CBC, BMP 02/16/17 05:30 02/16/17 05:30 INR, PTT INR 1.29 (0.82-1.09) H 02/07/17 11:33 Problem List - Problems (1) Acute exacerbation of chronic obstructive pulmonary disease Assessment/Plan: on duo nebs' iv steroids Code(s): J44.1 - CHRONIC OBSTRUCTIVE PULMONARY DISEASE W (ACUTE) EXACERBATION (2) Hypothyroidism Assessment/Plan: on meds Code(s): E03.9 - HYPOTHYROIDISM, UNSPECIFIED (3) Methadone maintenance therapy patient Assessment/Plan: will continue Code(s): F11.20 - OPIOID DEPENDENCE, UNCOMPLICATED (4) Smoker Assessment/Plan: on nicotine patch Code(s): F17.200 - NICOTINE DEPENDENCE, UNSPECIFIED, UNCOMPLICATED (5) A-fib Assessment/Plan: on meds monitor cardiology consult Code(s): I48.91 - UNSPECIFIED ATRIAL FIBRILLATION Qualifiers: Atrial fibrillation type: chronic Qualified Code(s): I48.2 - Chronic atrial fibrillation (6) Anxiety Assessment/Plan: on klonopin psych consult Code(s): F41.9 - ANXIETY DISORDER, UNSPECIFIED (7) Hypertension Assessment/Plan: on meds stable Code(s): I10 - ESSENTIAL (PRIMARY) HYPERTENSION (8) Fever Assessment/Plan: CXS SENT WILL START ON IV ABX ID CONSULT Code(s): R50.9 - FEVER, UNSPECIFIED Assessment/Plan DR CORREIA COVERING FROM FEB 17-MAR 05
[2017-02-16] MEDS: IBUPROFEN 600 MG TABLET (FP) PO PRN (20:23)
[2017-02-17] MEDS ORDERED: PIPERACILLIN/TAZOB 3.375 GM 3.375 GM in DEXTROSE 5%-WATER - 50 ML IVPB ONE (00:45)
[2017-02-17] MEDS ORDERED: VANCOMYCIN 1,000 MG in DEXTROSE 5%-WATER - 250 ML IVPB ONE (00:45)
[2017-02-17] MEDS: GABAPENTIN 300 MG CAPSULE (FP) PO SCH (02:05)
[2017-02-17] MEDS: NYSTATIN 500,000 UNITS/5 ML SUSPENSION PO SCH (02:05)
[2017-02-17] MEDS: QUETIAPINE FUMARATE PO SCH (02:05)
[2017-02-17] MEDS: levETIRAcetam 500 MG TABLET (FP) PO SCH (02:05)
[2017-02-17] MEDS: clonazePAM 0.5 MG TABLET PO SCH (02:05)
[2017-02-17] MEDS: methylPREDNISolone NA SUCC 40 MG/1 ML VIAL IVPUSH SCH (02:23)
[2017-02-17 02:36] VITALS: BP 136/92; PULSE 138
[2017-02-17] MEDS ORDERED: IBUPROFEN 800 MG/8 ML IJ IVPB PRN (05:03)
[2017-02-17] MEDS ORDERED: ACETAMINOPHEN 1000 MG/100 ML VIAL (NON FORMULARY) IVPB PRN (05:38)
--- NOTE | 2017-02-17 05:48 | HOSP ---
Subjective - Review of Symptoms Events since last encounter: This is a Note. Resident was called to see Ms. Wiggins for unresponsiveness. On exam Ms. Wiggins did not respond to verbal or physical stimuli, and no spontaneous movement was observed. Absent heart and breath sounds for more than 1 minute. Absent peripheral pulses. Pupils were fixed and dilated, corneal reflex was absent. Ms. Wiggins was pronounced at 05:29. Resident notified PCP, Dr. Morrell. Resident left 2 voice messages for next of kin, Ruben Land. Nurse to f/u to notify next of kin. Physical Examination Vital Signs: Labs: Visit type - Emergency Visit Emergency Visit: Yes ED Registration Date: 02/07/17 Care time: The patient presented to the Emergency Department on the above date and was hospitalized for further evaluation of their emergent condition. - New Patient This patient is new to me today: Yes Date on this admission: 02/17/17 - Critical Care Critical Care patient: No
[2017-02-17 06:54] VITALS: TEMP 105.2
[2017-02-17] MEDS: ALBUTEROL SO4 2.5/IPRATROPIUM 0.5 INH SOL 3 ML VIAL.NEB. NEB SCH (07:05)
== END 2017-02-17 05:30 | disposition expired | DRG 140 ==
LOC: JER 11:08 → JERBED 17:11 → J4W 22:09 → JICU 02-13 01:28 → J4W 02-13 20:54
PROVIDERS: ADMIT Internal Medicine; ATTEND Internal Medicine
PROC: 02HV33Z Insertion of Infusion Device into Superior Vena Cava, Percutaneous Approach (ICD-10-PCS; principal; 2017-02-13)
PROC: B548ZZA Ultrasonography of Superior Vena Cava, Guidance (ICD-10-PCS; 2017-02-13)
DX: J44.1 Chronic obstructive pulmonary disease with (acute) exacerbation (principal); I11.0 Hypertensive heart disease with heart failure; I50.33 Acute on chronic diastolic (congestive) heart failure; Z99.81 Dependence on supplemental oxygen; I73.1 Thromboangiitis obliterans [Buerger's disease]; F11.20 Opioid dependence, uncomplicated; I48.0 Paroxysmal atrial fibrillation; Z79.01 Long term (current) use of anticoagulants; E03.9 Hypothyroidism, unspecified; B19.20 Unspecified viral hepatitis C without hepatic coma; Z86.718 Personal history of other venous thrombosis and embolism; E04.1 Nontoxic single thyroid nodule; Z85.118 Personal history of other malignant neoplasm of bronchus and lung; F17.210 Nicotine dependence, cigarettes, uncomplicated; F41.9 Anxiety disorder, unspecified; Z86.711 Personal history of pulmonary embolism; R50.9 Fever, unspecified
CPT/HCPCS: 36415; 36600; 71010-TC; 80048; 80053; 80162; 81003; 81015; 82550; 82553; 82803; 83735; 83880; 84100; 84443; 84484; 85025; 85610; 85730; 87040; 87086; 87186; 93005; 93010; 94640; 94660; 99285-25